=== PATIENT | male | born 1950 | race Caucasian/White ===

== ENCOUNTER → 2017-01-25 | Outpatient (CLI) | payer MEDICARE ==
[~2017-01-25] MED LIST: ALLO100T PO; AMLO10TA2 PO; ASPI-999 PO; ATOR40TA PO; CLOP75TA28 PO; CLOP75TA69 PO; FURO40TA4 PO; GLIM4TAB PO; IBUP-30 PO; LOSA25TA21 PO; MAGN400T39 PO; METF500T4 PO; METO-274 PO; METO5TAB6 PO; POTA10TA10 PO; POTA10TA36 PO; SPIR25TA PO
--- NOTE | 2017-01-25 14:40 | Diagnostic Imaging Report ---
EXAMINATION: PA and lateral views of the chest. INDICATION: Cough. Fever. FINDINGS: Extensive bilateral infiltrates are seen. Bilateral pleural effusions are noted. The heart size is slightly enlarged. No pneumothorax. IMPRESSION: There are extensive bilateral infiltrates and small effusions which could relate to pulmonary edema or pneumonia. The report was faxed to the office of Dr. Sue Fam by FRANDY at 2:45 PM. Dictated by: Dictated on workstation # [id number]
== END ==
LOC: RAD 12:38
PROVIDERS: ATTEND Internal Medicine
DX: R05 Cough (principal)
CPT/HCPCS: 71020

== ENCOUNTER → 2017-02-08 | Outpatient (CLI) | payer MEDICARE ==
[2017-02-08 08:33] LABS: MEAN PLATELET VOLUME 11.6 FL (7.4-10.4); RED BLOOD COUNT 4.84 10^6/uL (4.35-5.85); RED CELL DISTRIBUTION WIDTH 13.5 % (10.0-14.5); WHITE BLOOD COUNT 8.5 10^3/uL (4.3-11.0)
[2017-02-08 08:34] LABS: BILIRUBIN,URINE NEGATIVE (NEGATIVE); KETONES,URINE NEGATIVE (NEGATIVE); LEUKOCYTE ESTERASE ,URINE NEGATIVE (NEGATIVE); NITRITE,URINE NEGATIVE (NEGATIVE); PH,URINE 7 (5-9); PROTEIN,URINE 1+ (NEGATIVE); UROBILINOGEN,URINE NORMAL (NORMAL)
[2017-02-08 08:42] LABS: PROTHROMBIN TIME PATIENT 13.1 SEC (12.2-14.7)
[2017-02-08 08:45] LABS: HYALINE CASTS, URINE RARE /LPF; WBC,URINE 0-2 /HPF
[2017-02-08 08:54] LABS: ALBUMIN 3.8 G/DL (3.2-4.5); CALCIUM 9.7 MG/DL (8.5-10.1); CREATININE SERUM 1.91 MG/DL (0.60-1.30); MAGNESIUM 1.7 MG/DL (1.8-2.4); POTASSIUM 3.7 MMOL/L (3.6-5.0); TOTAL PROTEIN 7.2 G/DL (6.4-8.2)
== END ==
LOC: CARD 08:04
PROVIDERS: ATTEND Internal Medicine Cardiovascular Disease
DX: I13.0 Hypertensive heart and chronic kidney disease with heart failure and stage 1 through stage 4 chronic kidney disease, or unspecified chronic kidney disease (principal); I50.21 Acute systolic (congestive) heart failure; N18.9 Chronic kidney disease, unspecified; I25.10 Atherosclerotic heart disease of native coronary artery without angina pectoris
CPT/HCPCS: 36415; 80053; 80061; 81000; 83735; 85027; 85610; 85730; 93005

== ENCOUNTER 2017-02-09 07:14 | Day surgery (SDC) | payer MEDICARE ==
[~2017-02-09] VITALS: Ht 177.8 cm; Wt 83.9 kg
[2017-02-09] VITALS (7 sets, daily range): BP systolic 132–139; BP diastolic 67–101
[~2017-02-09 07:14] MED LIST changes: -CLOP75TA69 PO; -MAGN400T39 PO; -METO5TAB6 PO; -POTA10TA36 PO; -SPIR25TA PO
[2017-02-09] MEDS ORDERED: LIDOCAINE 1% INJ 20 ML (XYLOCAINE) VIAL ONE (07:17)
[2017-02-09] MEDS ORDERED: NS IV 1000 ML 1,000 ML ONE (07:17)
[2017-02-09] MEDS ORDERED: NS IV 1000 ML 1,000 ML IV SCH (07:45)
[2017-02-09] MEDS ORDERED: CLOP75TA69 PO (08:55)
[2017-02-09] MEDS ORDERED: ASPI-999 PO (08:55)
[2017-02-09] MEDS ORDERED: POTA10TA36 PO (08:55)
[2017-02-09] MEDS ORDERED: GLIM4TAB PO (08:55)
[2017-02-09] MEDS ORDERED: METO-274 PO (08:55)
[2017-02-09] MEDS ORDERED: ATOR40TA PO (08:55)
[2017-02-09] MEDS ORDERED: METO5TAB6 PO (08:55)
[2017-02-09] MEDS ORDERED: SPIR25TA PO (08:55)
[2017-02-09] MEDS ORDERED: MAGN400T39 PO (08:55)
[2017-02-09] MEDS ORDERED: LOSA25TA21 PO (08:55)
[2017-02-09] MEDS ORDERED: FURO40TA4 PO (08:55)
[2017-02-09] MEDS ORDERED: fentaNYL INJECTION 100 MCG/2 ML AMP ONE (11:03)
[2017-02-09] MEDS ORDERED: diphenhydrAMINE 50 MG/ML INJ (BENADRYL) ONE (11:03)
[2017-02-09] MEDS ORDERED: MIDAZOLAM 5 MG/5 ML (VERSED) VIAL ONE (11:03)
--- NOTE | 2017-02-09 11:16 | Cardiac Procedure Note-CS/ASA ---
Pre-Procedure Note Pre-Op Procedure Note H&P Reviewed The H&P was reviewed, patient examined and no changes noted. Date H&P Reviewed: February 09, 2017 Time H&P Reviewed: 11:15 Conscious Sedation Pre-Proced Time Reviewed: 11:15 ASA Class: 3 Airway Mallampati Classification: (cahto appropriate class) I. II. III, IV Lungs Heart ASA score ASA 1: a normal healthy patient ASA 2: a patient with a mild systemic disease (mid diabetes, controlled hypertension, obesity ASA 3: a patient with a severe systemic disease that limits activity (angina , COPD, prior Myocardial infarction) ASA 4: a patient with an incapacitating disease that is a constant threat to life (CHF, renal failure) ASA 5: a moribund patient not expected to survive 24 hrs. (ruptured aneurysm) ASA 6: a declared brain patient whose organs are being harvested. For emergent operations, add the letter E after the classification Grade 2 Sedation Plan: Analgesia, Amnesia, Plan communicated to team members, Discussed options with patient/fam, Discussed risks with patient/fam Note The patient is an appropriate candidate to undergo the planned procedure, sedation, and anesthesia. The patient immediately re-assessed prior to indication. RHYS HINKLE MD FACP FAC CCDS February 09, 2017 11:15
[2017-02-09] MEDS ORDERED: HEParin 1000 UNIT/ML (10ML VIAL) FOR BOLUS ONE (11:38)
[2017-02-09] MEDS ORDERED: EPTIFIBATIDE BOLUS 20 ML IV ONE (11:38)
[2017-02-09] MEDS ORDERED: NITROGLYCERIN DRIP 25 MG/D5W 250 ML IV ONE (11:38)
[2017-02-09] MEDS ORDERED: ASPIRIN 325 MG (5 GR) TABLET ONE (12:33)
[2017-02-09] MEDS ORDERED: CLOPIDOGREL 300 MG (PLAVIX) TABLET PO ONE (12:33)
[2017-02-09] MEDS ORDERED: ASPIRIN 81 MG CHEW (CHILDREN'S ASA) ONE (12:34)
[2017-02-09] MEDS ORDERED: FUROSEMIDE 40 MG/4 ML INJ (LASIX) IVP ONE (13:15)
[2017-02-09] MEDS ORDERED: PATIENT MAY USE OWN MEDS, ALL PO SCH (13:15)
[2017-02-09] MEDS: NS IV 1000 ML 1,000 ML IV SCH (13:28)
--- NOTE | 2017-02-09 14:30 | CARDIAC CATHETERIZATION ---
DATE OF SERVICE: 02/09/2017 CARDIAC CATHETERIZATION AND CORONARY INTERVENTION DATE OF PROCEDURE: 02/09/17 The patient is a 66-year-old gentleman with recently diagnosed acute systolic congestive heart failure due to ischemic cardiomyopathy. Cardiac catheterization was carried out today after having obtained informed consent. DESCRIPTION OF PROCEDURE: The patient was brought to the cardiac catheterization laboratory after vigorous perioperative hydration. This is because he has chronic kidney disease stage 3-4 at baseline. We carried out perioperative hydration to reduce the risk of contrast nephropathy. This risk was discussed with him in detail and he provided informed consent. The right groin was prepped and draped in the usual sterile fashion. Then 1% lidocaine for local anesthesia. Modified Seldinger technique was used to advance a 5-[place] sheath into the right femoral artery. A 5-[place] JL5 catheter for left coronary angiography. 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 We were able to engage it with a 5-[place] AL2 access catheter. We used a 5-[place] pigtail catheter for left heart catheterization. We did not perform left ventricle angiography. This was to conserve dye given his renal insufficiency. The pigtail was then pulsed back and removed. The sheath was exchanged over a wire for a 6-[place] sheath and we then proceeded with percutaneous intervention of the left anterior descending artery as described below. PERCUTANEOUS INTERVENTION TO THE LEFT ANTERIOR DESCENDING ARTERY: We used a 5-[place] Q4.5 guide catheter to engage the left coronary artery. With moderate difficulty we were able to advance a [place] floppy wire across an extremely tight lesion in the left anterior descending artery just past the 1st diagonal branchy. The tip was placed in the distal vessel. We carried out balloon angioplasty with Emerge 2.0 x 30 mm balloon. This improved antegrade flow from CRISTI-2 to CRISTI-3. There was still considerable residual stenosis (up to 80%). We removed the balloon and advanced Resolute 2.25 x 30 mm stent and this was carefully positioned to cover the lesion and the stent was deployed at 15 atmospheres which gave a final lumen size of 2.5 mm. The stent balloon was removed. There was another lesion just proximal to the proximal stent and we proceeded with stenting that with Resolute 2.5 x 14 mm stent. The distal part of the stent overlapped the proximal part of the previously placed stent. This stent was deployed at 15 atmospheres which gives a final stent lumen size of 2.75 mm. The stent balloon was then removed and we used an Emerge 2.75 x 20 mm balloon which was used to cover the entire stented area with balloon inflations of up to 12 atmospheres, achieving a final lumen size of the stented area of 2.9 mm. Subsequent angiography reveals no residual stenosis at the previous site of the 99% stenosis and flow throughout the vessel is normal. The angioplasty equipment was removed. Angiography of the right femoral artery was performed through the sheath and Mynx was used to achieve hemostasis. HEMODYNAMICS: Left ventricular end diastolic pressure was following amniography was 29 mmHg. There was no significant pressure gradient on pullback across the aortic valve. Ascending aortic pressure is 136/71 with a mean of 94 mmHg. LEFT VENTRICULAR ANGIOGRAPHY: Left ventricular angiography was not carried out to conserve contrast. CORONARY ANGIOGRAPHY: Chronic calcification is seen. Left main coronary artery does not have significant disease. Left anterior descending artery has 99% stenosis just past the 1st diagonal branch to which successful balloon angioplasty and stenting was carried out. Following deployment of 2 overlapping stents (Resolute 2.25 x 30 mm distally and Resolute 2.5 x 14 mm proximally) and subsequent balloon dilatation of the entire stented area with Emerge 2.75 x 20 mm balloon, there is no significant residual stenosis and flow throughout the vessel is normal. The left circumflex artery has mild to moderate disease. The right coronary artery is dominant and has multiple stenoses up to 40% in its mid and distal portions. CONCLUSIONS: 1. Coronary artery disease primarily consisting of near-total occlusion of the mid left anterior descending artery past the 1st diagonal branch to which successful intervention was carried out. Following deployment of overlapping stents (Resolute 2.25 x 30 mm distally and Resolute 2.5 x 14 mm proximally) and subsequent balloon dilatation of the entire stented area with a 2.75 mm balloon (which took the lumen diameter to 2.9 mm), there is no significant residual stenosis. The left circumflex is nondominant. The right coronary artery is dominant. The left circumflex and right coronary arteries have relatively moderate disease. 2. Elevated left ventricular-end diastolic pressure. DISCUSSION AND RECOMMENDATIONS: He is being hospitalized after this intervention. Perioperative hydration is being continued to reduce risk of contrast nephropathy. Further decisions will be made during his hospital course. Job ID: [id number] DocumentID: [id number] Dictated Date: 02/09/2017 12:55:02 Extruder Operator Multiple Date: 02/09/2017 14:00:53 Dictated By: RHYS HINKLE MD, MA, FACP, FACC, MTDD
[2017-02-09] MEDS ORDERED: FUROSEMIDE 40 MG/4 ML INJ (LASIX) ONE (16:00)
[2017-02-09] MEDS: inSUlin (REGULAR) HUMAN 1 UNIT/0.01 ML (CHARGE PER UNIT) SC SCH ×2 (17:12→20:18)
[2017-02-09] MEDS: MAGNESIUM OXIDE (MAG-OX)400 MG TAB PO SCH (20:19)
[2017-02-09] MEDS: GLIMEPIRIDE 4 MG (AMARYL) TAB PO SCH (20:19)
[2017-02-09] MEDS ORDERED: ATORVASTATIN 40 MG (LIPITOR) TABLET PO SCH (21:00)
[2017-02-10] VITALS: BP 143/78
[2017-02-10] MEDS: NS IV 1000 ML 1,000 ML IV SCH (02:19)
[2017-02-10 03:56] LABS: MEAN PLATELET VOLUME 11.4 FL (7.4-10.4); RED BLOOD COUNT 4.68 10^6/uL (4.35-5.85); RED CELL DISTRIBUTION WIDTH 13.6 % (10.0-14.5); WHITE BLOOD COUNT 11.4 10^3/uL (4.3-11.0)
[2017-02-10 04:00] VITALS: BP 133/76
[2017-02-10 04:15] LABS: CALCIUM 9.2 MG/DL (8.5-10.1); CREATININE SERUM 1.94 MG/DL (0.60-1.30); POTASSIUM 3.6 MMOL/L (3.6-5.0)
[2017-02-10] MEDS: inSUlin (REGULAR) HUMAN 1 UNIT/0.01 ML (CHARGE PER UNIT) SC SCH ×2 (05:57→11:00)
[2017-02-10 08:00] VITALS: BP 134/79
[2017-02-10] MEDS ORDERED: FUROSEMIDE 40 MG (LASIX) TAB PO SCH (09:00)
[2017-02-10] MEDS ORDERED: ASPIRIN 81 MG CHEW (CHILDREN'S ASA) PO SCH (09:00)
[2017-02-10] MEDS ORDERED: KCL 10 MEQ TAB (MICRO K) PO SCH (09:00)
[2017-02-10] MEDS ORDERED: meTOprolol SUCCINATE 100 MG (TOPROL XL) TAB PO SCH (09:00)
[2017-02-10] MEDS ORDERED: CLOPIDOGREL 75 MG (PLAVIX) TABLET PO SCH (09:00)
[2017-02-10] MEDS: GLIMEPIRIDE 4 MG (AMARYL) TAB PO SCH (09:19)
[2017-02-10] MEDS: MAGNESIUM OXIDE (MAG-OX)400 MG TAB PO SCH (09:21)
--- NOTE | 2017-02-10 10:55 | Progress Note-Cardiology ---
Cardiology SOAP Progress Note Subjective: No cp or palp or syncope Exertional shortness of breath is better Was able to lie flat last night and was able to rest better than has been at home No leg swelling or groin discomfort. Wishes to go home Objective: I&O/Vital Signs Vital Sign - Last 12Hours 02/10/17 02/10/17 02/10/17 02/10/17 00:00 01:00 04:00 07:00 Temp 97.9 98.7 Pulse 78 97 75 90 Resp 20 16 B/P (MAP) 143/78 133/76 Pulse Ox 96 96 O2 Delivery Room Air Room Air Weight (Pounds): 185 Weight (Ounces): 0.0 Weight (Calculated Kilograms): 83.244516 Groin site without hematoma: Yes Bruising: mild bruising Constitutional: AAO x 3, well-developed, well-nourished Respiratory: No accessory muscle use, lungs clear to percussion, lungs clear to auscultation Cardiovascular: regular rate-rhythm, S1 and S2, systolic murmur (faint AMAURI at cardiac base) Gastrointestional: No tender, No guarding, No rebound, audible bowel sounds Extremities: No clubbing, No cyanosis, No significant edema Neurologic/Psychiatric: oriented x 3, grossly intact, power is 5/5 both on sides Skin: No rash on exposed areas, No ulcerations on exposed areas Results/Procedures: Labs Laboratory Tests 02/09/17 16:24: Glucometer 214H 02/09/17 20:10: Glucometer 267H 02/10/17 03:47: White Blood Count 11.4H, Red Blood Count 4.68, Hemoglobin 13.5, Hematocrit 40, Mean Corpuscular Volume 86, Mean Corpuscular Hemoglobin 29, Mean Corpuscular Hemoglobin Concent 34, Red Cell Distribution Width 13.6, Platelet Count 260, Mean Platelet Volume 11.4H, Sodium Level 144, Potassium Level 3.6, Chloride Level 102, Carbon Dioxide Level 27, Anion Gap 15H, Blood Urea Nitrogen 31H, Creatinine 1.94H, Estimat Glomerular Filtration Rate 35, BUN/Creatinine Ratio 16 , Glucose Level 101, Calcium Level 9.2 Laboratory Tests 02/10/17 03:47 A/P: Assessment: CAD. Card cath and PCI on 5/9/17: Coronary artery disease primarily consisting of near-total occlusion of the mid left anterior descending artery past the 1st diagonal branch to which successful intervention was carried out. Following deployment of overlapping stents (Resolute 2.25 x 30 mm distally and Resolute 2.5 x 14 mm proximally) and subsequent balloon dilatation of the entire stented area with a 2.75 mm balloon (which took the lumen diameter to 2.9 mm), there is no significant residual stenosis. The left circumflex is nondominant. The right coronary artery is dominant. The left circumflex and right coronary arteries have relatively moderate disease. Elevated left ventricular-end diastolic pressure Chronic systolic CHF Echo of 01/26/17: LVEF 40%, triv to mild MR and TR, PASP 40 mmHG, mod conc LVH DM II Hypertension, by history Quit tobacco use in or around 1999 CKD III; likely in some part d/t diabetic nephropathy Plan: * Wishes to go home * I discussed with him in detail the findings of cath and interventions undertaken * I answered his questions in detail * Have advised close outpatient f/u for now * Have advised repeat lab work in 4-5 days to eval for contrast nephropathy (no evidence of that so far) * Given recent worsening of renal function and use of contrast yesterday, we are holding off on ARB for now. Will restart if labs stable next week RHYS HINKLE MD FACP FAC CCDS February 10, 2017 10:55
--- NOTE | 2017-02-10 10:59 | Discharge Inst-Post CATH ---
Discharge Inst-CATH Post Cardiac Cath D/C Inst Follow Up/Plan F/u with Dr Vela on 02/15 or 02/16/17 CARDIAC CATH DISCHARGE INSTRUCTIONS *Hold Metformin for 48 hours post heart cath. ACTIVITY * Go Home directly and rest. * Limit activity of the leg (or wrist if it was used) for 7 days including aerobics, swimming, jogging, bicycling, etc. * Restrict stair-climbing for 7 days if possible, if not, climb up with your non -cath leg, then bring together on the same step. * Avoid lifting, pushing, pulling or excessive movement of the affected extremity for 7 days. * Customary sexual activity may be resumed after 2 days-use caution not to use a position that strains or causes pain to the affected extremity. * No driving for 24 hours. * NO SMOKING. * Avoid straining for bowel movements for 7 days. * Gentle walking on level ground is allowed. * Returning to work will depend on the type of procedure and the results. Your doctor will discuss this with you. CALL YOUR DOCTOR FOR ANY OF THE FOLLOWING: *If bleeding from the puncture site occurs- Apply gentle pressure to site with clean cloth and call your doctor or EMS. * If a knot or lump forms under the skin, increases in size, or causes pain. * If bruising appears to be worsening or moving further down your leg instead of disappearing. * Temperature above 101 F. CARE OF YOUR GROIN INCISION; * Bruising or purple discoloration of the skin near the puncture site is common. * You may shower only, no bathtub bathing for 5 days. Be careful to avoid slipping as your leg may feel stiff. * If a closure device was used on your femoral artery, please see the attached guide regarding care of the device and your leg. * REMOVE the dressing from your groin the next day after your procedure in the shower. CARE OF YOUR WRIST INCISION; * Bruising or purple discoloration of the skin near the puncture site is common. * You may shower. * DO NOT submerge wrist. * Remove dressing in [address]. [facility] VELA [facility] CCDS February 10, 2017 10:59
--- NOTE | 2017-02-10 10:59 | Discharge Inst-Cardiology ---
Discharge Inst-Cardiac Discharge Medications Continued Medications: Aspirin (Aspirin) 81 Mg Tab.chew 81 MG PO DAILY, TAB Atorvastatin Calcium (Lipitor) 40 Mg Tablet 40 MG PO DAILY, TAB Clopidogrel Bisulfate (Plavix) 75 Mg Tablet 75 MG PO DAILY, TAB Furosemide (Furosemide) 40 Mg Tablet 40 MG PO DAILY, TAB Glimepiride (Glimepiride) 4 Mg Tablet 4 MG PO BID, TAB Magnesium Oxide (Magnesium) 400 Mg Tablet 400 MG PO BID, TAB Metoprolol Succinate (Metoprolol Succinate) 100 Mg Tab.er.24h 100 MG PO DAILY, TAB Potassium Chloride (Potassium Chloride) 10 Meq Tab.er.prt 10 MEQ PO DAILY Discontinued Medications: Losartan Potassium (Losartan Potassium) 25 Mg Tablet 25 MG PO DAILY, TAB Metolazone (Metolazone) 5 Mg Tablet 2.5 MG PO DAILY, TAB TAKES 1/2 (5MG) TABLET Spironolactone (Aldactone) 25 Mg Tablet 25 MG PO DAILY, TAB Activity & Diet Discharge Diet: ADA Diet (1600 kCal ADA) Orders-Post D/C & Referrals Pneu Vac Indicated: Yes RHYS HINKLE MD FACP FACC CCDS February 10, 2017 10:59
--- NOTE | 2017-02-10 11:09 | Cardiology Discharge Summary ---
Diagnosis/Chief Complaint Date of Admission 02/09/17 Date of Discharge 02/10/17 Final/Discharge Diagnosis CAD. Card cath and PCI on 02/09/17: Coronary artery disease primarily consisting of near-total occlusion of the mid left anterior descending artery past the 1st diagonal branch to which successful intervention was carried out. Following deployment of overlapping stents (Resolute 2.25 x 30 mm distally and Resolute 2.5 x 14 mm proximally) and subsequent balloon dilatation of the entire stented area with a 2.75 mm balloon (which took the lumen diameter to 2.9 mm), there is no significant residual stenosis. The left circumflex is nondominant. The right coronary artery is dominant. The left circumflex and right coronary arteries have relatively moderate disease. Elevated left ventricular-end diastolic pressure Chronic systolic CHF Echo of 01/26/17: LVEF 40%, triv to mild MR and TR, PASP 40 mmHG, mod conc LVH DM II Hypertension, by history Quit tobacco use in or around 1999 CKD III; likely in some part d/t diabetic nephropathy Chief Complaint/HPI Chief Complaint/HPI Please see H&P and cath report for details of admission Please refer to today's progress note for condition at discharge and hosp course Time spent in pt exam, interview, answering questions, preparing discharge, writing meds and notes: 10:40 am to 11:10 am Discharge Summary Procedures Card cath and cor intervention on 02/09/17 (see report) Hospital Course Pending Labs Laboratory Tests 02/10/17 03:47: White Blood Count 11.4, Red Blood Count 4.68, Hemoglobin 13.5, Hematocrit 40, Mean Corpuscular Volume 86, Mean Corpuscular Hemoglobin 29, Mean Corpuscular Hemoglobin Concent 34, Red Cell Distribution Width 13.6, Platelet Count 260, Mean Platelet Volume 11.4, Sodium Level 144, Potassium Level 3.6, Chloride Level 102, Carbon Dioxide Level 27, Anion Gap 15, Blood Urea Nitrogen 31, Creatinine 1.94, Estimat Glomerular Filtration Rate 35, BUN/Creatinine Ratio 16 , Glucose Level 101, Calcium Level 9.2 Discussion & Recommendations Home Medications Reviewed patient Home Medication Reconciliation Form Discharge Home Medications: Reviewed and agree with Discharge Medication list on patient's Discharge Instruction sheet Instructions to patient/family F/u with Dr Vela on 02/15 or 02/16/17 RHYS VELA MD FACP FAC CCDS February 10, 2017 11:09
[2017-02-10 12:00] VITALS: BP 140/75
== END 2017-02-10 13:05 | disposition home or self-care (01) ==
LOC: CATH 07:14 → ICU 13:00 → CATH 02-10 13:05
PROVIDERS: ATTEND Internal Medicine Cardiovascular Disease
DX: I50.21 Acute systolic (congestive) heart failure (principal); I25.5 Ischemic cardiomyopathy; I25.10 Atherosclerotic heart disease of native coronary artery without angina pectoris; N18.4 Chronic kidney disease, stage 4 (severe); I25.84 Coronary atherosclerosis due to calcified coronary lesion; E11.22 Type 2 diabetes mellitus with diabetic chronic kidney disease; I12.9 Hypertensive chronic kidney disease with stage 1 through stage 4 chronic kidney disease, or unspecified chronic kidney disease; Z87.891 Personal history of nicotine dependence; Z79.899 Other long term (current) drug therapy
CPT/HCPCS: 36415; 80048; 82962; 85027; 87081; 93005; 93458

== ENCOUNTER 2017-03-03 12:26 | Inpatient (IN) | payer MEDICARE ==
[~2017-03-03] VITALS: Ht 179.1 cm; Wt 84.4 kg
[~2017-03-03 12:26] MED LIST changes: +CLOP75TA69 PO; +MAGN400T39 PO; +METO5TAB6 PO; +POTA10TA36 PO; +SPIR25TA PO
[2017-03-03 12:58] LABS: BASOPHILS # (AUTO) 0.1 10^3/uL (0.0-0.1); BASOPHILS % (AUTO) 1 % (0-10); EOSINOPHILS # (AUTO) 0.1 10^3/uL (0.0-0.3); EOSINOPHILS % (AUTO) 1 % (0-10); LYMPHOCYTES # (AUTO) 1.5 X 10^3 (1.0-4.0); LYMPHOCYTES % (AUTO) 20 % (12-44); MEAN CORPUSCULAR HEMOGLOBIN 29 PG (25-34); MEAN CORPUSCULAR HGB CONC 34 G/DL (32-36); MEAN CORPUSCULAR VOLUME 86 FL (80-99); MEAN PLATELET VOLUME 11.3 FL (7.4-10.4); MONOCYTES % (AUTO) 13 % (0-12); NEUTROPHILS % (AUTO) 65 % (42-75); PLATELET COUNT 256 10^3/uL (130-400); RED BLOOD COUNT 4.64 10^6/uL (4.35-5.85); RED CELL DISTRIBUTION WIDTH 14.9 % (10.0-14.5); WHITE BLOOD COUNT 7.7 10^3/uL (4.3-11.0)
[2017-03-03] MEDS ORDERED: RT-ALBUTEROL/IPRATROPIUM 3 ML (DUONEB) VIAL INH ONE (13:00)
[2017-03-03 13:08] LABS: PROTHROMBIN TIME PATIENT 13.3 SEC (12.2-14.7)
[2017-03-03 13:13] LABS: ABG BASE EXCESS -0.9 MMOL/L (-2.5-2.5); ABG HCO3 22 MMOL/L (23-27); ABG OXYGEN SATURATION 95 % (94-100); ABG PCO2 30 MMHG (35-45); ABG PH 7.48 (7.37-7.43); ABG PO2 66 MMHG (79-93); ABG TCO2 23.4 MMOL/L (21.0-31.0)
[2017-03-03 13:16] LABS: ALANINE AMINOTRANSFERASE 38 U/L (0-55); ANION GAP 14 MMOL/L (5-14); ASPARTATE AMINO TRANSFERASE 22 U/L (5-34); BILIRUBIN,TOTAL 0.9 MG/DL (0.1-1.0); BLOOD UREA NITROGEN 23 MG/DL (7-18); BUN/CREATININE RATIO 13; CALCIUM 9.3 MG/DL (8.5-10.1); CARBON DIOXIDE 24 MMOL/L (21-32); CHLORIDE 106 MMOL/L (98-107); CREATINE KINASE 112 U/L (30-200); CREATININE SERUM 1.72 MG/DL (0.60-1.30); GFR ESTIMATED 40; GLUCOSE 149 MG/DL (70-105); MAGNESIUM 1.8 MG/DL (1.8-2.4); POTASSIUM 3.9 MMOL/L (3.6-5.0); SODIUM 144 MMOL/L (135-145)
[2017-03-03 13:19] LABS: ALLENS TEST YES-POS; PATIENT TEMP 96.1
--- NOTE | 2017-03-03 13:29 | Diagnostic Imaging Report ---
INDICATION: Difficult breathing. Portable chest 1:16 PM. There is some infiltrate present at the right lung base with a small effusion. There is some left basilar atelectasis. The upper lungs are clear. IMPRESSION: Left basilar atelectasis. Right basilar infiltrate and/or atelectasis with small associated right-sided pleural effusion. Dictated by: Dictated on workstation # [id number]
[2017-03-03 13:36] LABS: TROPONIN I < 0.30 NG/ML (<0.30)
[2017-03-03] MEDS ORDERED: LEVOFLOXACIN 750 MG/150 ML IV 150 ML IV STA (13:38)
[2017-03-03] MEDS ORDERED: FUROSEMIDE 40 MG/4 ML INJ (LASIX) IV STA (13:38)
--- NOTE | 2017-03-03 14:06 | ED Respiratory ---
General Chief Complaint: Respiratory Problems Stated Complaint: SOB Nursing Triage Note: pt was sent to the ed from [facility] [place] urgent care. pt states he had stents placed approx. 2 weeks ago and has been feeling sob before and since stents were placed. Source: patient, spouse Exam Limitations: no limitations History of Present Illness Time seen by provider: 12:30 Initial Comments 66-year-old male patient [place] to the emergency department [place] [facility] [place] with complaints of shortness of breath. States he had cardiac stents placed [address] Vela. States he was short of breath prior to the stent placement as well as after. Denies it being worse today, but states he does feel more fatigued. Was diagnosed with pneumonia at the end of January. Timing/Duration: other (proximally 2 months onset) Prior Episodes/Possible Cause: chronic episodes Modifying Factors: Worse With Activity Allergies and Home Medications Allergies Coded Allergies: No Known Drug Allergies (Unverified , 01/25/17) Home Medications Aspirin 81 Mg Tab.chew, 81 MG PO DAILY, (Reported) Atorvastatin Calcium 40 Mg Tablet, 40 MG PO HS, (Reported) Clopidogrel Bisulfate 75 Mg Tablet, 75 MG PO DAILY, (Reported) Furosemide 40 Mg Tablet, 40 MG PO DAILY, (Reported) Glimepiride 4 Mg Tablet, 4 MG PO BID, (Reported) Ibuprofen 200 Mg Tablet, 800 MG PO DAILY PRN for PAIN-MILD, (Reported) TAKES 4 (200 MG) TABLETS Magnesium Oxide 400 Mg Tablet, 400 MG PO BID, (Reported) Metoprolol Succinate 100 Mg Tab.er.24h, 100 MG PO DAILY, (Reported) Multivit-Min/FA/Lycopene/Lut 1 Each Tablet, 1 TAB PO DAILY, (Reported) Potassium Chloride 10 Meq Tab.er.prt, 10 MEQ PO DAILY, (Reported) Zolpidem Tartrate 10 Mg Tablet, 10 MG PO HS PRN for INSOMNIA, (Reported) Constitutional: No chills, No diaphoresis, No dizziness, No fever, malaise, weakness (generalized weakness and fatigue) EENTM: no symptoms reported Respiratory: No cough, dyspnea on exertion, No hemoptysis, orthopnea, phlegm, short of breath Cardiovascular: No chest pain, No edema, No palpitations, No syncope Gastrointestinal: No abdominal pain, No constipation, No diarrhea, No nausea, No vomiting Genitourinary: no symptoms reported Musculoskeletal: no symptoms reported Skin: no symptoms reported Psychiatric/Neurological: No Symptoms Reported All Other Systems Reviewed Negative Unless Noted: Yes (Negative excepted noted.) Past Tngigex-Gpbzhm-Bgmurw Hx Patient Social History Alcohol Use: Rarely Uses Recreational Drug Use: No Smoking Status: Former Smoker Type Used: Cigarettes 2nd Hand Smoke Exposure: No Recent Foreign Travel: No Contact w/Someone Who Travel: No Recent Infectious Disease Expo: No Recent Hopitalizations: Yes (stents placed 2 weeks ago) Immunizations Up To Date PED Vaccines UTD: No Seasonal Allergies Seasonal Allergies: No Surgeries HX Surgeries: Yes Respiratory Hx Respiratory Disorders: No Respiratory Disorders: Pneumonia Cardiovascular Hx Cardiac Disorders: Yes Cardiac Disorders: High Cholesterol, Hypertension Neurological Hx Neurological Disorders: Yes Neurological Disorders: Neuropathy Genitourinary Hx Genitourinary Disorders: Yes (elevated creatinine) Genitourinary Disorders: Renal Failure Gastrointestinal Hx Gastrointestinal Disorders: No Musculoskeletal Hx Musculoskeletal Disorders: Yes Musculoskeletal Disorders: Chronic Back Pain Endocrine Hx Endocrine Disorders: Yes Endocrine Disorders: Diabetes, Non-Insulin dep HEENT HEENT Disorders: Cataract Loss of Vision: Denies Hearing Impairment: Denies Cancer Hx Cancer: No Psychosocial Hx Psychiatric Problems: No Reviewed Nursing Assessment Reviewed/Agree w Nursing PMH: Yes Family Medical History Significant Family History: No Pertinent Family Hx Physical Exam Vital Signs Vital Sign - Last 12Hours 03/03/17 03/03/17 12:30 12:46 Temp 98.2 Pulse 89 Resp 22 B/P (MAP) 137/93 Pulse Ox 98 O2 Delivery Nasal Cannula O2 Flow Rate 2.00 FiO2 91 Capillary Refill : Less Than 3 Seconds General Appearance: WD/WN, no apparent distress Eyes: Bilateral Eye EOMI, Bilateral Eye Normal Inspection, Bilateral Eye PERRL HEENT: PERRL/EOMI, pharynx normal Neck: supple, normal inspection Respiratory: lungs clear, no respiratory distress, decreased breath sounds ( bilateral bases) Cardiovascular: normal peripheral pulses, regular rate, rhythm, no edema, no murmur Gastrointestinal: normal bowel sounds, non tender, soft Neurologic/Psychiatric: alert, normal mood/affect, oriented x 3 Skin: normal color, warm/dry Progress/Results/Core Measures Results/Orders Lab Results Laboratory Tests Test 03/03/17 12:30 03/03/17 13:07 Range/Units White Blood Count 7.7 4.3-11.0 10^3/uL Red Blood Count 4.64 4.35-5.85 10^6/uL Hemoglobin 13.3 13.3-17.7 G/DL Hematocrit 40 40-54 % Mean Corpuscular Volume 86 80-99 FL Mean Corpuscular Hemoglobin 29 25-34 PG Mean Corpuscular Hemoglobin Concent 34 32-36 G/DL Red Cell Distribution Width 14.9 H 10.0-14.5 % Platelet Count 256 130-400 10^3/uL Mean Platelet Volume 11.3 H 7.4-10.4 FL Neutrophils (%) (Auto) 65 42-75 % Lymphocytes (%) (Auto) 20 12-44 % Monocytes (%) (Auto) 13 H 0-12 % Eosinophils (%) (Auto) 1 0-10 % Basophils (%) (Auto) 1 0-10 % Neutrophils # (Auto) 5.0 1.8-7.8 X 10^3 Lymphocytes # (Auto) 1.5 1.0-4.0 X 10^3 Monocytes # (Auto) 1.0 0.0-1.0 X 10^3 Eosinophils # (Auto) 0.1 0.0-0.3 10^3/uL Basophils # (Auto) 0.1 0.0-0.1 10^3/uL Prothrombin Time 13.3 12.2-14.7 SEC INR Comment 1.0 0.8-1.4 Activated Partial Thromboplast Time 34 24-35 SEC D-Dimer 0.53 H 0.00-0.49 UG/ML Sodium Level 144 135-145 MMOL/L Potassium Level 3.9 3.6-5.0 MMOL/L Chloride Level 106 98-107 MMOL/L Carbon Dioxide Level 24 21-32 MMOL/L Anion Gap 14 5-14 MMOL/L Blood Urea Nitrogen 23 H 7-18 MG/DL Creatinine 1.72 H 0.60-1.30 MG/DL Estimat Glomerular Filtration Rate 40 BUN/Creatinine Ratio 13 Glucose Level 149 H 70-105 MG/DL Calcium Level 9.3 8.5-10.1 MG/DL Magnesium Level 1.8 1.8-2.4 MG/DL Total Bilirubin 0.9 0.1-1.0 MG/DL Aspartate Amino Transf (AST/SGOT) 22 5-34 U/L Alanine Aminotransferase (ALT/SGPT) 38 0-55 U/L Alkaline Phosphatase 100 40-136 U/L Total Creatine Kinase 112 30-200 U/L Creatine Kinase MB 6.7 *H <6.6 NG/ML Troponin I < 0.30 <0.30 NG/ML B-Type Natriuretic Peptide 3117.1 H <100.0 PG/ML Total Protein 7.0 6.4-8.2 G/DL Albumin 4.0 3.2-4.5 G/DL TSH [place] Testing 1.93 0.35-4.94 UIU/ML Blood Gas Puncture Site RBRACH Blood Gas Patient Temperature 96.1 Arterial Blood pH 7.48 H 7.37-7.43 Arterial Blood Partial Pressure CO2 30 L 35-45 MMHG Arterial Blood Partial Pressure O2 66 L 79-93 MMHG Arterial Blood HCO3 22 L 23-27 MMOL/L Arterial Blood Total CO2 23.4 21.0-31.0 MMOL/L Arterial Blood Oxygen Saturation 95 94-100 % Arterial Blood Base Excess -0.9 -2.5-2.5 MMOL/L Oscar Test YES-POS Blood Gas Ventilator Setting NO Blood Gas Inspired Oxygen 2L My Orders Orders - GILLIAN GORDON Cbc With Automated Diff (03/03/17 12:49) Comprehensive Metabolic Panel (03/03/17 12:49) Creatine Kinase (03/03/17 12:49) Creatine Kinase Mb (03/03/17 12:49) Fibrin Degradation Products (03/03/17 12:49) Magnesium (03/03/17 12:49) Protime With Inr (03/03/17 12:49) Partial Thromboplastin Time (03/03/17 12:49) Thyroid Analyzer (03/03/17 12:49) Troponin I (03/03/17 12:49) Saline Lock/Iv-Start (03/03/17 12:49) Ekg Tracing (03/03/17 12:49) Monitor-Rhythm Ecg Trace Only (03/03/17 12:49) Chest 1 View, Ap/Pa Only (03/03/17 12:49) Albuterol/Ipra Inhalation Soln (Duoneb I (03/03/17 13:00) Svn Sm Volume Nebulizer Rt-Rfs (03/03/17 12:49) O2 (03/03/17 12:49) BNP (03/03/17 12:54) Arterial Blood Gas (03/03/17 13:05) Rt Request For Service (03/03/17 13:14) Furosemide Injection (Lasix Injection) (03/03/17 13:38) Blood Culture (03/03/17 13:38) Levofloxacin 750 Mg/150 Ml Iv (Levaquin (03/03/17 13:38) Medications Given in ED Current Medications Medications Dose Ordered Sig/Roman Route Start Time Stop Time Status Last Admin Dose Admin Albuterol/ Ipratropium 3 ml ONCE ONCE INH 03/03/17 13:00 03/03/17 13:01 DC 03/03/17 13:09 3 ML Vital Signs/I&O Vital Sign - Last 12Hours 03/03/17 03/03/17 03/03/17 12:30 12:46 13:09 Temp 98.2 Pulse 89 Resp 22 B/P (MAP) 137/93 Pulse Ox 98 97 96 O2 Delivery Nasal Cannula Nasal Cannula O2 Flow Rate 2.00 2.00 2.00 FiO2 91 Blood Pressure Mean: 108 ECG Initial ECG Impression Date: March 03, 2017 Initial ECG Impression Time: 12:44 Initial ECG Rate: 82 Initial ECG Comparisson: Unchanged Comment Sinus rhythm. No STEMI or arrhythmia noted . Similar to ECG from 02/10/17. ECG reviewed with Dr. Sherman. Diagnostic Imaging Diagonstic Imaging: Xray Plain Films/CT/US/NM/MRI: chest Comments There is some infiltrate present at the right lung base with a small effusion. There is some left basilar atelectasis. The upper lungs are clear. IMPRESSION: Left basilar atelectasis. Right basilar infiltrate and/or atelectasis with small associated right-sided pleural effusion. Dictated by: Dictated on workstation # [id number] Reviewed: Reviewed by Me (radiology report reviewed by me.) Departure Communication Time/Spoke to Admitting Phy: 13:[address] Vaca accepts patient to his internal medicine service for IV Antibiotics, lasix, and cardiology consult. Progress Notes All laboratory findings, diagnostic study findings, and plan for admission discussed with the patient. Patient voices understanding and agrees with the treatment plan. Patient case discussed with Dr. Sherman, he agrees with the plan of care. Impression Impression: Primary Impression: Pneumonia Qualified Codes: J18.1 - Lobar pneumonia, unspecified organism Additional Impression: CHF exacerbation Qualified Codes: I50.9 - Heart failure, unspecified Disposition: 09 ADMITTED INPATIENT Condition: Stable Decision to Admit Reason: Admit from ER (General) Decision to Admit/Date: March 03, 2017 Time/Decision to Admit Time: 13:50 Departure-Patient Inst. Referrals: NICHOLAS GLOVER DO (PCP/Family) Primary Care Physician GILLIAN GORDON March 03, 2017 14:06
[2017-03-03 15:00] VITALS: BP 140/89
[2017-03-03] MEDS ORDERED: PIPERACILLIN/TAZOBACTAM 4.5 GM/NS 100 ML IV NR ×2 (15:52)
[2017-03-03] MEDS ORDERED: VANCOMYCIN 2000 MG/NS 500 ML IVPB IV NR ×2 (16:00)
[2017-03-03] MEDS ORDERED: CATHETER FLUSH 10 ML SYR IV PRN (16:00)
[2017-03-03] MEDS ORDERED: ONDANSETRON 4 MG/2 ML (SDV) Z0FRAN IV PRN (16:00)
--- NOTE | 2017-03-03 16:16 | Consultation-Cardiology ---
HPI-Cardiology Cardiology Consultation: Date of Consultation 03/03/17 Date of Admission 03-03-17 Attending Physician Zeke Vaca MD Admitting Physician Sue Fam DO Consulting Physician Bebe Vela MD HPI: Chief Complaint: Dyspnea Mr. Edge is a 66 year old male admitted to ICU 4 with pneumonia. He states he has had SOB for several weeks which has progressively gotten worse over the last few days with associated generalized weakness and malaise. He does not report any fever, chills, or diaphoresis. He does report orthopnea and states he is only able to lie flat for approx 5 minutes before he feels short of breath and begins to cough. He does not report any LE edema. He does not report any CP, palpitations, syncope or near syncope. Review of Systems-Cardiology Review of Systems Constitutional: As described under HPI Eyes: No blurred vision, No drainage, No pain, No vision change Ears/Nose/Throat: No ear discharge, No ear pain, No nasal drainage, No ulcerations Respiratory: As described under HPI Cardiovascular: As described under HPI Gastrointestinal: No constipation, No diarrhea, No nausea, No vomiting, No stool coloration changes Genitourinary: No dysuria, No discharge, No frequency, No hematuria, No urgency Skin: No rash, No skin related problems, No ulcerations Psychiatric/Neurological: No anxiety, No depression, No focal weakness, No seizure, No syncope Hematologic: No bleeding abnormalities MCY-Hfbqey-Icnziz Hx Patient Social History Alcohol Use: Rarely Uses Recreational Drug Use: No Smoking Status: Former Smoker Type Used: Cigarettes 2nd Hand Smoke Exposure: No Recent Foreign Travel: No Recent Infectious Disease Expo: No Hospitalization with Isolation: Denies Physical Abuse Screen: No Sexual Abuse: No Past Medical History PMH As described under Assessment. Family Medical History Family Medical History: No fam history of early CAD or SCD Allergies and Home Medications Allergies Coded Allergies: No Known Drug Allergies (Unverified , 01/25/17) Home Medications Aspirin 81 Mg Tab.chew, 81 MG PO DAILY, (Reported) Atorvastatin Calcium 40 Mg Tablet, 40 MG PO HS, (Reported) Clopidogrel Bisulfate 75 Mg Tablet, 75 MG PO DAILY, (Reported) Furosemide 40 Mg Tablet, 40 MG PO DAILY, (Reported) Glimepiride 4 Mg Tablet, 4 MG PO BID, (Reported) Ibuprofen 200 Mg Tablet, 800 MG PO DAILY PRN for PAIN-MILD, (Reported) TAKES 4 (200 MG) TABLETS Magnesium Oxide 400 Mg Tablet, 400 MG PO BID, (Reported) Metoprolol Succinate 100 Mg Tab.er.24h, 100 MG PO DAILY, (Reported) Multivit-Min/FA/Lycopene/Lut 1 Each Tablet, 1 TAB PO DAILY, (Reported) Potassium Chloride 10 Meq Tab.er.prt, 10 MEQ PO DAILY, (Reported) Zolpidem Tartrate 10 Mg Tablet, 10 MG PO HS PRN for INSOMNIA, (Reported) Physical Exam-Cardiology Physical Exam Vital Signs/I&O Vital Sign - Last 12Hours 03/03/17 03/03/17 03/03/17 03/03/17 12:30 12:46 13:09 14:47 Temp 98.2 98.0 Pulse 89 85 Resp 22 27 B/P (MAP) 137/93 Pulse Ox 98 97 96 97 O2 Delivery Nasal Cannula Nasal Cannula O2 Flow Rate 2.00 2.00 2.00 2.00 FiO2 91 03/03/17 03/03/17 15:00 16:00 Temp 96.4 Pulse 85 Resp 20 B/P (MAP) 140/89 Pulse Ox 98 2 O2 Flow Rate 2.00 Capillary Refill : Less Than 3 Seconds Constitutional: appears stated age, No apparent distress, well-developed, well- nourished HEENT: PERRL, No discharge, hearing is well preserved, oral hygience is good, No ulceration, No xanthelasmas are seen Neck: No carotid bruit, carotid pulses are 2 + bilaterally Respiratory: No accessory muscle use, No respiratory distress, chest expansion is symmetric, chest is bilaterally symmetric, other (diminished bases bilat) Cardiovascular: regular rate-rhythm, No JVD, S1 and S2 Gastrointestinal: No tender, soft, audible bowel sounds, No spleenomegaly Rectal: deferred Extremities: No clubbing, No cyanosis, No significant edema Neurologic/Psychiatric: alert, oriented x 3, power is 5/5 both on sides Skin: No rash, No ulcerations Data Review Labs Laboratory Tests 03/03/17 12:30: White Blood Count 7.7, Red Blood Count 4.64, Hemoglobin 13.3, Hematocrit 40, Mean Corpuscular Volume 86, Mean Corpuscular Hemoglobin 29, Mean Corpuscular Hemoglobin Concent 34, Red Cell Distribution Width 14.9H, Platelet Count 256, Mean Platelet Volume 11.3H, Neutrophils (%) (Auto) 65, Lymphocytes (%) (Auto) 20 , Monocytes (%) (Auto) 13H, Eosinophils (%) (Auto) 1, Basophils (%) (Auto) 1, Neutrophils # (Auto) 5.0, Lymphocytes # (Auto) 1.5, Monocytes # (Auto) 1.0, Eosinophils # (Auto) 0.1, Basophils # (Auto) 0.1, Prothrombin Time 13.3, INR Comment 1.0, Activated Partial Thromboplast Time 34, D-Dimer 0.53H, Sodium Level 144, Potassium Level 3.9, Chloride Level 106, Carbon Dioxide Level 24, Anion Gap 14, Blood Urea Nitrogen 23H, Creatinine 1.72H, Estimat Glomerular Filtration Rate 40, BUN/Creatinine Ratio 13, Glucose Level 149H, Calcium Level 9.3, Magnesium Level 1.8, Total Bilirubin 0.9, Aspartate Amino Transf (AST/SGOT ) 22, Alanine Aminotransferase (ALT/SGPT) 38, Alkaline Phosphatase 100, Total Creatine Kinase 112, Creatine Kinase MB 6.7*H, Troponin I < 0.30, B-Type Natriuretic Peptide 3117.1H, Total Protein 7.0, Albumin 4.0, TSH [place] Testing 1.93 03/03/17 13:07: Blood Gas Puncture Site [facility], Blood Gas Patient Temperature 96.1, Arterial Blood pH 7.48H, Arterial Blood Partial Pressure CO2 30L, Arterial Blood Partial Pressure O2 66L, Arterial Blood HCO3 22L, Arterial Blood Total CO2 23.4, Arterial Blood Oxygen Saturation 95, Arterial Blood Base Excess -0.9, Oscar Test YES-POS, Blood Gas Ventilator Setting NO, Blood Gas Inspired Oxygen 2L Radiology NAME: JENNI EDGE [facility] REC#: [id number] PT STATUS: REG ER : 1950 PHYSICIAN: GILLIAN GORDON ADMIT DATE: 03/03/17/ER Draft Date of Exam:03/03/17 CHEST 1 VIEW, AP/PA ONLY INDICATION: Difficult breathing. Portable chest 1:16 PM. There is some infiltrate present at the right lung base with a small effusion. There is some left basilar atelectasis. The upper lungs are clear. IMPRESSION: Left basilar atelectasis. Right basilar infiltrate and/or atelectasis with small associated right-sided pleural effusion. Dictated on workstation # [id number] Dict: 03/03/17 1327 Trans: 03/03/17 1329 [id number] Interpreted by: JOSE CARLOS BHARDWAJ Electronically signed by: ECG Impression ECG Initial ECG Rhythm: Normal Sinus A/P-Cardiology Assessment/Admission Diagnosis Dyspnea - likely multifactorial Pneumonia - management per medical services Ac on chronic systolic CHF CAD. Card cath of 02/09/17: near-total occlusion of LAD treated with overlapping Resolute 2.25x30 and 2.5x14 stents and both post-diated with a 2.75 mm balloon to 2.9 mm diameter; LCX and RCA had relatively mod disease; elevated LVEDP Echo of 01/26/17: LVEF 40%, triv to mild MR and TR, PASP 40 mmHG, mod conc LVH DM II Hypertension Quit tobacco use in or around 1999 CKD III; likely in some part d/t diabetic nephropathy, no evidence contrast nephropathy post cath of 02/09/17 Insomnia Discussion and Recomendations Multifactorial dyspnea. Pneumonia which is being treated per medical services. Acute on chronic systolic CHF. We will treat with IV Lasix. Monitor renal function closely d/t CKD. We will continue Plavix and ASA d/t recent stent placement. We will continue BB and statin. We would like to thank the medical services for this consult. Further recommendations will be based on his hospital course. This consult is being scribed by Linda Thomas APRN on behalf of Dr. Vela afte discussion regarding plan of care. Physician Assessment Physician Assessment Lungs: diminished bs at bases, coarse basal crackles Cor: reg A&R * As documented in our note above * Complex management due to multisystem involvement: pulm, card, nephric * Monitor labs closely * I had a detailed discussion with him and answered questions VIVIAN THOMAS [employer] FACILITATOR March 03, 2017 16:16 BEBE VELA MD FACP [facility] March 03, 2017 17:14
[2017-03-03] MEDS: FAMOTIDINE 20MG/2ML IV (PEPCID) IV SCH ×2 (16:41→19:47)
[2017-03-03] MEDS ORDERED: MULT-850 PO (17:08)
[2017-03-03] MEDS ORDERED: IBUP-30 PO (17:08)
[2017-03-03] MEDS ORDERED: ZOLP10TA5 PO (17:10)
[2017-03-03] MEDS: FUROSEMIDE 40 MG/4 ML INJ (LASIX) IV SCH (17:40)
[2017-03-03] MEDS: CATHETER FLUSH 10 ML SYR IV SCH (19:47)
[2017-03-03 19:51] VITALS: BP 129/82
[2017-03-03] MEDS ORDERED: ATORVASTATIN 40 MG (LIPITOR) TABLET PO SCH (21:00)
[2017-03-03] MEDS: PIPERACILLIN/TAZOBACTAM 4.5 GM/NS 100 ML IVPB IV SCH ×2 (21:58)
[2017-03-03] MEDS ORDERED: NON-FORMULARY MEDICATION 1 EA EA (Zolpidem Tartrate 10 MG) PO PRN (22:15)
[2017-03-03] MEDS: ZOLPIDEM 5 MG (AMBIEN) TAB PO PRN (22:43)
[2017-03-04] VITALS: BP 138/89
[2017-03-04 04:00] VITALS: BP 142/86
[2017-03-04 05:08] LABS: ALANINE AMINOTRANSFERASE 33 U/L (0-55); ALBUMIN 3.5 G/DL (3.2-4.5); ANION GAP 13 MMOL/L (5-14); ASPARTATE AMINO TRANSFERASE 21 U/L (5-34); BILIRUBIN,TOTAL 0.7 MG/DL (0.1-1.0); BLOOD UREA NITROGEN 20 MG/DL (7-18); BUN/CREATININE RATIO 11; CALCIUM 8.8 MG/DL (8.5-10.1); CARBON DIOXIDE 26 MMOL/L (21-32); CHLORIDE 106 MMOL/L (98-107); CREATININE SERUM 1.77 MG/DL (0.60-1.30); GFR ESTIMATED 39; GLUCOSE 108 MG/DL (70-105); MAGNESIUM 1.7 MG/DL (1.8-2.4); POTASSIUM 3.1 MMOL/L (3.6-5.0); SODIUM 145 MMOL/L (135-145); TOTAL PROTEIN 6.5 G/DL (6.4-8.2)
[2017-03-04 05:09] LABS: BASOPHILS # (AUTO) 0.1 10^3/uL (0.0-0.1); BASOPHILS % (AUTO) 1 % (0-10); EOSINOPHILS # (AUTO) 0.3 10^3/uL (0.0-0.3); EOSINOPHILS % (AUTO) 4 % (0-10); LYMPHOCYTES # (AUTO) 1.2 X 10^3 (1.0-4.0); LYMPHOCYTES % (AUTO) 16 % (12-44); MEAN CORPUSCULAR HEMOGLOBIN 29 PG (25-34); MEAN CORPUSCULAR HGB CONC 34 G/DL (32-36); MEAN CORPUSCULAR VOLUME 86 FL (80-99); MEAN PLATELET VOLUME 11.2 FL (7.4-10.4); MONOCYTES # (AUTO) 0.8 X 10^3 (0.0-1.0); MONOCYTES % (AUTO) 10 % (0-12); NEUTROPHILS # (AUTO) 5.6 X 10^3 (1.8-7.8); NEUTROPHILS % (AUTO) 70 % (42-75); PLATELET COUNT 258 10^3/uL (130-400); RED BLOOD COUNT 4.39 10^6/uL (4.35-5.85); RED CELL DISTRIBUTION WIDTH 15.2 % (10.0-14.5); WHITE BLOOD COUNT 7.9 10^3/uL (4.3-11.0)
[2017-03-04] MEDS: FUROSEMIDE 40 MG/4 ML INJ (LASIX) IV SCH ×2 (06:13→16:44)
[2017-03-04] MEDS: PIPERACILLIN/TAZOBACTAM 4.5 GM/NS 100 ML IVPB IV SCH ×6 (06:14→21:22)
[2017-03-04] MEDS: CATHETER FLUSH 10 ML SYR IV SCH ×3 (06:17→21:21)
[2017-03-04] MEDS ORDERED: KCL 20 MEQ TAB (K-DUR) PO SCH (07:00)
[2017-03-04 07:45] VITALS: BP 151/92
--- NOTE | 2017-03-04 08:16 | Diagnostic Imaging Report ---
PA and lateral views of the chest. INDICATION: Followup pneumonia. FINDINGS: There is small to moderate-sized pleural effusion. There is adjacent right basilar infiltrate or atelectasis. The findings are similar to 03/03/17. Minimal left basilar atelectasis also seen. The heart size is moderately enlarged. No pneumothorax. The mediastinum and carmen appear unremarkable. IMPRESSION: Stable small to moderate-sized pleural effusion with adjacent right basilar infiltrates or atelectasis. Dictated by: Dictated on workstation # [id number]
--- NOTE | 2017-03-04 08:57 | Progress Note-Cardiology ---
Cardiology SOAP Progress Note Subjective: States he feels much better today. Shortness of breath has improved. He is able to lie flat this morning. No c/o CP, palpitations. He continues to feel weak, but states this is improving. Objective: I&O/Vital Signs Vital Sign - Last 12Hours 03/03/17 03/04/17 03/04/17 03/04/17 22:40 00:00 00:00 01:00 Temp 96.5 Pulse 81 82 B/P (MAP) 138/89 O2 Flow Rate 2.00 2.00 2.00 03/04/17 03/04/17 03/04/17 03/04/17 04:00 04:00 07:00 07:45 Temp 97.1 97.5 Pulse 84 85 77 Resp 16 20 B/P (MAP) 142/86 151/92 Pulse Ox 97 94 O2 Flow Rate 2.00 2.00 2.00 Intake and Output 03/04/17 00:00 Intake Total 1260 ml Output Total 2070 ml Balance -810 ml Weight (Pounds): 184 Weight (Ounces): 12.8 Weight (Calculated Kilograms): 83.270987 Constitutional: appears stated age, No apparent distress, well-developed, well- nourished Respiratory: No accessory muscle use, No respiratory distress, chest expansion is symmetric, chest is bilaterally symmetric, other (diminished bases bilat; R>L ) Cardiovascular: regular rate-rhythm, No JVD, S1 and S2 Gastrointestional: No tender, soft, audible bowel sounds, No spleenomegaly Extremities: No clubbing, No cyanosis, No significant edema Neurologic/Psychiatric: alert, oriented x 3, power is 5/5 both on sides Skin: No rash, No ulcerations Results/Procedures: Labs Laboratory Tests 03/03/17 12:30: White Blood Count 7.7, Red Blood Count 4.64, Hemoglobin 13.3, Hematocrit 40, Mean Corpuscular Volume 86, Mean Corpuscular Hemoglobin 29, Mean Corpuscular Hemoglobin Concent 34, Red Cell Distribution Width 14.9H, Platelet Count 256, Mean Platelet Volume 11.3H, Neutrophils (%) (Auto) 65, Lymphocytes (%) (Auto) 20 , Monocytes (%) (Auto) 13H, Eosinophils (%) (Auto) 1, Basophils (%) (Auto) 1, Neutrophils # (Auto) 5.0, Lymphocytes # (Auto) 1.5, Monocytes # (Auto) 1.0, Eosinophils # (Auto) 0.1, Basophils # (Auto) 0.1, Prothrombin Time 13.3, INR Comment 1.0, Activated Partial Thromboplast Time 34, D-Dimer 0.53H, Sodium Level 144, Potassium Level 3.9, Chloride Level 106, Carbon Dioxide Level 24, Anion Gap 14, Blood Urea Nitrogen 23H, Creatinine 1.72H, Estimat Glomerular Filtration Rate 40, BUN/Creatinine Ratio 13, Glucose Level 149H, Calcium Level 9.3, Magnesium Level 1.8, Total Bilirubin 0.9, Aspartate Amino Transf (AST/SGOT ) 22, Alanine Aminotransferase (ALT/SGPT) 38, Alkaline Phosphatase 100, Total Creatine Kinase 112, Creatine Kinase MB 6.7*H, Troponin I < 0.30, B-Type Natriuretic Peptide 3117.1H, Total Protein 7.0, Albumin 4.0, TSH [place] Testing 1.93 03/03/17 13:07: Blood Gas Puncture Site [facility], Blood Gas Patient Temperature 96.1, Arterial Blood pH 7.48H, Arterial Blood Partial Pressure CO2 30L, Arterial Blood Partial Pressure O2 66L, Arterial Blood HCO3 22L, Arterial Blood Total CO2 23.4, Arterial Blood Oxygen Saturation 95, Arterial Blood Base Excess -0.9, Oscar Test YES-POS, Blood Gas Ventilator Setting NO, Blood Gas Inspired Oxygen 2L 03/03/17 19:46: Glucometer 215H 03/04/17 04:40: White Blood Count 7.9, Red Blood Count 4.39, Hemoglobin 12.6L, Hematocrit 38L, Mean Corpuscular Volume 86, Mean Corpuscular Hemoglobin 29, Mean Corpuscular Hemoglobin Concent 34, Red Cell Distribution Width 15.2H, Platelet Count 258, Mean Platelet Volume 11.2H, Neutrophils (%) (Auto) 70, Lymphocytes (%) (Auto) 16 , Monocytes (%) (Auto) 10, Eosinophils (%) (Auto) 4, Basophils (%) (Auto) 1, Neutrophils # (Auto) 5.6, Lymphocytes # (Auto) 1.2, Monocytes # (Auto) 0.8, Eosinophils # (Auto) 0.3, Basophils # (Auto) 0.1, Sodium Level 145, Potassium Level 3.1L, Chloride Level 106, Carbon Dioxide Level 26, Anion Gap 13, Blood Urea Nitrogen 20H, Creatinine 1.77H, Estimat Glomerular Filtration Rate 39, BUN/ Creatinine Ratio 11, Glucose Level 108H, Calcium Level 8.8, Magnesium Level 1.7L , Total Bilirubin 0.7, Aspartate Amino Transf (AST/SGOT) 21, Alanine Aminotransferase (ALT/SGPT) 33, Alkaline Phosphatase 89, Troponin I < 0.30, Total Protein 6.5, Albumin 3.5 Microbiology 03/03/17 Gram Stain - Final, Resulted 03/03/17 Sputum Culture - Preliminary, Resulted Probable Klebsiella/Enterobact Procedures NAME: JENNI EDGE [facility] REC#: [id number] PT STATUS: ADM IN : 1950 PHYSICIAN: JEFF MARIANO MD ADMIT DATE: 03/03/17/ICU Draft Date of Exam:03/04/17 CHEST PA/LAT (2 VIEW) PA and lateral views of the chest. INDICATION: Followup pneumonia. FINDINGS: There is small to moderate-sized pleural effusion. There is adjacent right basilar infiltrate or atelectasis. The findings are similar to 03/03/17. Minimal left basilar atelectasis also seen. The heart size is moderately enlarged. No pneumothorax. The mediastinum and carmen appear unremarkable. IMPRESSION: Stable small to moderate-sized pleural effusion with adjacent right basilar infiltrates or atelectasis. Dictated on workstation # [id number] Dict: 03/04/17 0809 Trans: 03/04/17 0816 [id number] Interpreted by: CHAO RODRIGUEZ MD Electronically signed by: A/P: Assessment: Dyspnea - likely multifactorial Pneumonia - management per medical services Ac on chronic systolic CHF CAD. Card cath of 02/09/17: near-total occlusion of LAD treated with overlapping Resolute 2.25x30 and 2.5x14 stents and both post-diated with a 2.75 mm balloon to 2.9 mm diameter; LCX and RCA had relatively mod disease; elevated LVEDP Echo of 01/26/17: LVEF 40%, triv to mild MR and TR, PASP 40 mmHG, mod conc LVH DM II Hypertension Quit tobacco use in or around 1999 CKD III; likely in some part d/t diabetic nephropathy, no evidence contrast nephropathy post cath of 02/09/17 Insomnia Plan: Multifactorial dyspnea - improving Pneumonia which is being treated per medical services Acute on chronic systolic CHF We will continue IV Lasix Monitor renal function closely d/t CKD Replace electrolytes Physician Assessment Physician Assessment Lungs: good air entry, but diminished at the bases Cor: reg A&R * As documented in our note above * I discussed his case in detail with Dr Frank of the [facility] and requested consideration of bronchoscopy * I spoke with Mr Edge and answered questions * Continue to monitor labs VIVIAN SILVA MARKETING SUPPORT ASSISTANT Mar 04, 2017 08:57 RHYS HINKLE MD FACP FAC CCDS Mar 04, 2017 09:07
[2017-03-04] MEDS ORDERED: CLOPIDOGREL 75 MG (PLAVIX) TABLET PO SCH (09:00)
[2017-03-04] MEDS ORDERED: ASPIRIN 81 MG CHEW (CHILDREN'S ASA) PO SCH (09:00)
[2017-03-04] MEDS ORDERED: meTOprolol SUCCINATE 100 MG (TOPROL XL) TAB PO SCH (09:00)
[2017-03-04] MEDS ORDERED: KCL 20 MEQ TAB (K-DUR) PO NR (09:30)
[2017-03-04] MEDS: MAGNESIUM 1 GM/100 ML IVPB 100 ML IV SCH ×2 (09:57→10:53)
--- NOTE | 2017-03-04 11:08 | History & Physical-Hospitalist ---
HPI History of Present Illness: HPI/Chief Complaint CC: SOB HPI: This is a 66 yoWM pt of mine with a very complicated recent medical hx subacute CO with heart failure status post stent placement who presented to the ER after he was dx with pneumonia at Urgent Care the day before and worsened through the night. Dr. Frank Review: Dr. Vela would like pt to have a Bronch employment coach: Pt is feeling better Pt's family states that Dr. Frank may do a Bronch Dr. Vela would like the pt to be on one more day of IV Lasix Glipizide has not been restarted and his family is concerned about this. Pt does not currently have anything ordered for DM management, but his labs are okay today. Pt is a step down pt, but will most likely stay ICU Patient Interview: Pt states that he is feeling much better today and his strength is improving. Pt states that he felt horrible last weekend. Labs and CXR were discussed with the pt and he was informed that everything looks good Physical exam stable. Lungs sound perfect. Pt was informed that he is on antibiotics for the pneumonia Home O2 was discussed with the pt for the short term. Pt does not want to require home O2. Pt states that he has not used it during his stay in ICU. Pt was informed that his home meds were restarted. Pt's friend is concerned with his sleeping issues and she wonders if he has sleep apnea. Pt states that he has never had sleep issues before and the Ambien that he was given in clinic has not really been helping. Pt is concerned about taking antibiotics home. Pt believes that last time he DC from [facility] he needed antibiotics, but did not take them home; pt believes that because he did not go home with antibiotics, he developed his current pneumonia. Scribed by Marjorie Caballero under the direct supervision of Dr. Glover. Source: patient Exam Limitations: no limitations Date Seen 03/04/17 Attending Physician Zeke Vaca MD PCP Sue Glover DO Referring Physician Date of Admission March 03, 2017 at 14:00 Home Medications & Allergies Home Medications Reviewed patient Home Medication Reconciliation Form Allergies Allergies Coded Allergies No Known Drug Allergies (Unverified01/25/17) Past Uavdiub-Qhopeg-Jnyueg Hx Patient Social History Marrital Status: cohabiting Employed/Student: employed Alcohol Use: Rarely Uses Recreational Drug Use: No Smoking Status: Former Smoker Type Used: Cigarettes 2nd Hand Smoke Exposure: No Physical Abuse Screen: No Sexual Abuse: No Recent Foreign Travel: No Contact w/other who traveled: No Recent Hopitalizations: Yes (stents placed 2 weeks ago) Recent Infectious Disease Expo: No Seasonal Allergies Seasonal Allergies: No Surgeries HX Surgeries: Yes Respiratory Hx Respiratory Disorders: Yes Respiratory Disorders: COPD, Pneumonia Cardiovascular Hx Cardiovascular Disorders: Yes Cardiac Disorders: Coronary Artery Disease, High Cholesterol, Hypertension Neurological Hx Neurological Disorders: Yes Neurological Disorders: Neuropathy Genitourinary Hx Genitourinary Disorders: Yes (elevated creatinine) Genitourinary Disorders: Renal Failure Gastrointestinal Hx Gastrointestinal Disorders: No Musculoskeletal Hx Musculoskeletal Disorders: Yes Musculoskeletal Disorders: Chronic Back Pain, Gout Endocrine Hx Endocrine Disorders: Yes Endocrine Disorders: Diabetes, Non-Insulin dep HEENT HEENT Disorders: Cataract Loss of Vision: Denies Hearing Impairment: Denies Cancer Hx Cancer: No Psychosocial Hx Psychiatric Problems: No Reviewed Nursing Assessment Reviewed/Agree w Nursing PMH: Yes Family Medical History Significant Family History: No Pertinent Family Hx Review of Systems Constitutional: see HPI EENTM: no symptoms reported Respiratory: dyspnea on exertion, short of breath, wheezing Cardiovascular: no symptoms reported Gastrointestinal: no symptoms reported Genitourinary: no symptoms reported Musculoskeletal: no symptoms reported Skin: no symptoms reported Psychiatric/Neurological: Depressed All Other Systems Reviewed Negative Unless Noted: Yes Physical Exam Physical Exam Vital Signs Vital Sign - Last 12Hours 03/03/17 03/03/17 12:30 12:46 Temp 98.2 Pulse 89 Resp 22 B/P (MAP) 137/93 Pulse Ox 98 O2 Delivery Nasal Cannula O2 Flow Rate 2.00 FiO2 91 Capillary Refill : Less Than 3 Seconds General Appearance: No Apparent Distress, WD/WN, Chronically ill Eyes: Bilateral Eye Normal Inspection, Bilateral Eye PERRL HEENT: PERRL/EOMI, Normal ENT Inspection, Pharynx Normal Neck: Full Range of Motion, Normal Inspection, Non Tender, Supple, Carotid Bruit Respiratory: Chest Non Tender, Lungs Clear, No Accessory Muscle Use, No Respiratory Distress, Decreased Breath Sounds Cardiovascular: Regular Rate, Rhythm, No Edema, No Gallop, No JVD, No Murmur, Normal Peripheral Pulses Gastrointestinal: Normal Bowel Sounds, No Organomegaly, No Pulsatile Mass, Non Tender, Soft Back: Normal Inspection, No CVA Tenderness, No Vertebral Tenderness Extremity: Normal Capillary Refill, Normal Inspection, Normal Range of Motion, Non Tender, No Calf Tenderness, No Pedal Edema Neurologic/Psychiatric: Alert, Oriented x3, No Motor/Sensory Deficits, Depressed Affect Skin: Normal Color, Warm/Dry Lymphatic: No Adenopathy Results Results/Procedures Lab Laboratory Tests 03/03/17 12:30 03/04/17 04:40 Assessment/Plan Admission Diagnosis Assessment: Increased shortness of breath due to pneumonia but normal white count undergoing bronchoscopy Acute exacerbation of congestive heart failure Ischemic cardiomyopathy with stent placed [address] Vela Chronic renal insufficiency creatinine 1.7 chronic COPD presumed Severe insomnia due to recent medical events Long-standing noncompliance with medical treatments HLP Gout HTN Assessment and Plan Plan: Stop PO Lasix while he is on IV Lasix Home O2 eval but he declines it if he meets criteria for it regardless Encourage compliance Clinical Quality Measures DVT/VTE Risk/Contraindication: Risk Factor Score Per Nursin RFS Level Per Nursing on Admit: 4+=Very High SUE GLOVER DO Mar 04, 2017 11:08
--- NOTE | 2017-03-04 11:11 | Pulmonary Consultation ---
History of Present Illness History of Present Illness Date of Consultation 03/04/17 11:10 Date of Admission Allergies and Home Medications Allergies Coded Allergies: No Known Drug Allergies (Unverified , 01/25/17) Home Medications Aspirin 81 Mg Tab.chew, 81 MG PO DAILY, (Reported) Atorvastatin Calcium 40 Mg Tablet, 40 MG PO HS, (Reported) Clopidogrel Bisulfate 75 Mg Tablet, 75 MG PO DAILY, (Reported) Furosemide 40 Mg Tablet, 40 MG PO DAILY, (Reported) Glimepiride 4 Mg Tablet, 4 MG PO BID, (Reported) Ibuprofen 200 Mg Tablet, 800 MG PO DAILY PRN for PAIN-MILD, (Reported) TAKES 4 (200 MG) TABLETS Magnesium Oxide 400 Mg Tablet, 400 MG PO BID, (Reported) Metoprolol Succinate 100 Mg Tab.er.24h, 100 MG PO DAILY, (Reported) Multivit-Min/FA/Lycopene/Lut 1 Each Tablet, 1 TAB PO DAILY, (Reported) Potassium Chloride 10 Meq Tab.er.prt, 10 MEQ PO DAILY, (Reported) Zolpidem Tartrate 10 Mg Tablet, 10 MG PO HS PRN for INSOMNIA, (Reported) Past Qhehswl-Lguffu-Gcnwqq Hx Patient Social History Alcohol Use: Rarely Uses Recreational Drug Use: No Smoking Status: Former Smoker Type Used: Cigarettes 2nd Hand Smoke Exposure: No Recent Foreign Travel: No Contact w/Someone Who Travel: No Recent Infectious Disease Expo: No Recent Hopitalizations: Yes (stents placed 2 weeks ago) Physical Abuse Screen: No Sexual Abuse: No Immunizations Up To Date PED Vaccines UTD: No Seasonal Allergies Seasonal Allergies: No Surgeries HX Surgeries: Yes Respiratory Hx Respiratory Disorders: No Respiratory Disorders: Pneumonia Cardiovascular Hx Cardiac Disorders: Yes Cardiac Disorders: High Cholesterol, Hypertension Neurological Hx Neurological Disorders: Yes Neurological Disorders: Neuropathy Genitourinary Hx Genitourinary Disorders: Yes (elevated creatinine) Genitourinary Disorders: Renal Failure Gastrointestinal Hx Gastrointestinal Disorders: No Musculoskeletal Hx Musculoskeletal Disorders: Yes Musculoskeletal Disorders: Chronic Back Pain Endocrine Hx Endocrine Disorders: Yes Endocrine Disorders: Diabetes, Non-Insulin dep HEENT HEENT Disorders: Cataract Loss of Vision: Denies Hearing Impairment: Denies Cancer Hx Cancer: No Psychosocial Hx Psychiatric Problems: No Reviewed Nursing Assessment Reviewed/Agree w Nursing PMH: Yes Family Medical History Significant Family History: No Pertinent Family Hx Exam Exam Vital Signs Date Time Temp Pulse Resp B/P (MAP) Pulse Ox O2 Delivery O2 Flow Rate FiO2 03/04/17 07:45 97.5 77 20 151/92 94 2.00 03/04/17 07:00 85 03/04/17 04:00 97.1 84 16 142/86 97 2.00 03/04/17 04:00 2.00 03/04/17 01:00 82 03/04/17 00:00 96.5 81 138/89 2.00 03/04/17 00:00 2.00 03/03/17 22:40 2.00 03/03/17 21:00 21 03/03/17 19:52 2 2.00 03/03/17 19:51 96.2 81 18 129/82 96 2.00 03/03/17 19:00 83 03/03/17 16:00 2 03/03/17 15:00 2.00 03/03/17 15:00 96.4 85 20 140/89 98 2.00 03/03/17 14:47 98.0 85 27 97 2.00 03/03/17 13:09 96 2.00 03/03/17 12:46 97 Nasal Cannula 2.00 91 03/03/17 12:30 98.2 89 22 137/93 98 Nasal Cannula 2.00 I & O 03/04/17 07:00 Intake Total 1660 ml Output Total 2545 ml Balance -885 ml Capillary Refill: Less Than 3 Seconds Gastrointestinal: normal bowel sounds, non tender, soft Results Lab Laboratory Tests 03/03/17 12:30 03/04/17 04:40 Assessment/Plan Assessment/Plan small right pleural effusion with infiltration -check CT of chest today without contrast Clinical Quality Measures DVT/VTE Risk/Contraindication: Risk Factor Score Per Nursin RFS Level Per Nursing on Admit: 4+=Very High ESTEPHANIA MILAN DO Mar 04, 2017 11:11
[2017-03-04] MEDS: inSUlin ASPART (NovoLOG) 1 UNIT/0.01 ML (CHARGE PER UNIT) SC SCH ×3 (11:21→21:22)
[2017-03-04 11:49] VITALS: BP 128/84
[2017-03-04 15:09] VITALS: BP 139/82
--- NOTE | 2017-03-04 15:25 | Diagnostic Imaging Report ---
PROCEDURE: CT chest without contrast. TECHNIQUE: Multiple contiguous axial images were obtained through the chest without the use of intravenous contrast. INDICATION: Followup pneumonia. Shortness of breath. Patient is also tired all the time. FINDINGS: There is a vfyjatst-og-gdesi right pleural effusion. A deslz-ju-fyetqhrw left effusion is seen. The effusions have subpulmonic components without definite evidence of loculation. There is a minimal pericardial effusion. There are areas of consolidation seen in the lung bases with air bronchograms. This could be related to atelectasis, although infectious component cannot be ruled out. The thoracic aorta is normal in caliber. There is no mediastinal mass or significantly enlarged nodes. No axillary lymphadenopathy. The hilar vessels are not opacified with no obvious adjacent hilar mass or adenopathy seen. Sections in the upper abdomen appear grossly unremarkable. The osseous structures demonstrate rwsi-[id number] degenerative changes in the thoracic spine. IMPRESSION: There are bilateral pleural effusions, moderate to large on the right and small on the left. Areas of consolidation in the lung bases adjacent to the effusions could be from atelectasis with or without infectious component. Dictated by: Dictated on workstation # [id number]
[2017-03-04] MEDS ORDERED: VANCOMYCIN 1250 MG/NS 250 ML IVPB IV SCH ×2 (16:00)
[2017-03-04] MEDS: KCL 20 MEQ TAB (K-DUR) PO SCH (17:50)
[2017-03-04 20:00] VITALS: BP 124/75
[2017-03-04] MEDS ORDERED: ATORVASTATIN 40 MG (LIPITOR) TABLET PO SCH (21:00)
[2017-03-04] MEDS ORDERED: FAMOTIDINE 20MG/2ML IV (PEPCID) IV SCH (21:00)
[2017-03-04] MEDS: GLIMEPIRIDE 4 MG (AMARYL) TAB PO SCH (21:21)
[2017-03-04] MEDS: MAGNESIUM OXIDE (MAG-OX)400 MG TAB PO SCH (21:21)
[2017-03-04] MEDS: ZOLPIDEM 5 MG (AMBIEN) TAB PO PRN (21:21)
[2017-03-05] VITALS: BP 135/66
[2017-03-05 04:00] VITALS: BP 142/78
[2017-03-05 04:33] LABS: CALCIUM 9.1 MG/DL (8.5-10.1); CREATININE SERUM 1.91 MG/DL (0.60-1.30); POTASSIUM 3.6 MMOL/L (3.6-5.0)
[2017-03-05] MEDS: FUROSEMIDE 40 MG/4 ML INJ (LASIX) IV SCH (06:15)
[2017-03-05] MEDS: CATHETER FLUSH 10 ML SYR IV SCH (06:15)
[2017-03-05] MEDS: PIPERACILLIN/TAZOBACTAM 4.5 GM/NS 100 ML IVPB IV SCH ×2 (06:15)
[2017-03-05] MEDS: inSUlin ASPART (NovoLOG) 1 UNIT/0.01 ML (CHARGE PER UNIT) SC SCH (06:16)
--- NOTE | 2017-03-05 08:25 | Progress Note-Cardiology ---
Cardiology SOAP Progress Note Subjective: Sitting up on the side of the bed. States he feels stronger today. No c/o CP, palpitations, syncope or near syncope. He feels his breathing is better. He would like to go home. Objective: I&O/Vital Signs Vital Sign - Last 12Hours 03/05/17 03/05/17 03/05/17 00:00 01:00 04:00 Temp 97.6 97.8 Pulse 91 85 79 Resp 21 16 B/P (MAP) 135/66 142/78 Pulse Ox 96 95 Intake and Output 03/05/17 00:00 Intake Total 1000 ml Output Total 2800 ml Balance -1800 ml Weight (Pounds): 186 Weight (Ounces): 12.8 Weight (Calculated Kilograms): 84.873110 Constitutional: appears stated age, No apparent distress, well-developed, well- nourished Respiratory: No accessory muscle use, No respiratory distress, chest expansion is symmetric, chest is bilaterally symmetric, other (diminished bases bilat; R> L (improving)) Cardiovascular: regular rate-rhythm, No JVD, S1 and S2 Gastrointestional: No tender, soft, audible bowel sounds, No spleenomegaly Extremities: No clubbing, No cyanosis, No significant edema Neurologic/Psychiatric: alert, oriented x 3, power is 5/5 both on sides Skin: No rash, No ulcerations Results/Procedures: Labs Laboratory Tests 03/04/17 11:14: Glucometer 131H 03/04/17 16:43: Glucometer 95 03/04/17 21:20: Glucometer 181H 03/05/17 03:52: Sodium Level 147H, Potassium Level 3.6, Chloride Level 107, Carbon Dioxide Level 26, Anion Gap 14, Blood Urea Nitrogen 18, Creatinine 1.91H, Estimat Glomerular Filtration Rate 35, BUN/Creatinine Ratio 9, Glucose Level 125H, Calcium Level 9.1, Magnesium Level 2.0 Microbiology 03/03/17 Blood Culture - Preliminary, Resulted No growth 03/03/17 Gram Stain - Final, Resulted 03/03/17 Sputum Culture - Preliminary, Resulted Klebsiella Pneumoniae Yeast Species A/P: Assessment: Dyspnea - likely multifactorial Pneumonia - management per medical services Ac on chronic systolic CHF - clinically improving CAD. Card cath of 02/09/17: near-total occlusion of LAD treated with overlapping Resolute 2.25x30 and 2.5x14 stents and both post-diated with a 2.75 mm balloon to 2.9 mm diameter; LCX and RCA had relatively mod disease; elevated LVEDP Echo of 01/26/17: LVEF 40%, triv to mild MR and TR, PASP 40 mmHG, mod conc LVH DM II Hypertension Quit tobacco use in or around 1999 CKD III; likely in some part d/t diabetic nephropathy, no evidence contrast nephropathy post cath of 02/09/17 Insomnia Plan: Multifactorial dyspnea - improving Pneumonia which is being treated per medical services Acute on chronic systolic CHF - clinically improving We will change Lasix to oral today Monitor renal function closely d/t CKD Out pt f/u next week Physician Assessment Physician Assessment Lungs: good bilat air entry Cor: reg A&R * As documented in our note above * Change diuretics to oral * I spoke with him and answered questions VIVIAN SILVA Mar 05, 2017 08:25 RHYS HINKLE MD FACP FAC CCDS Mar 05, 2017 08:53
[2017-03-05] MEDS ORDERED: POTA-51 PO (08:39)
[2017-03-05] MEDS ORDERED: FURO80TA83 PO (08:39)
[2017-03-05 08:40] VITALS: BP 146/91
[2017-03-05] MEDS ORDERED: METO2.5T PO (08:43)
[2017-03-05] MEDS ORDERED: FUROSEMIDE 40 MG (LASIX) TAB PO SCH (09:00)
[2017-03-05] MEDS ORDERED: CLOPIDOGREL 75 MG (PLAVIX) TABLET PO SCH (09:00)
[2017-03-05] MEDS ORDERED: meTOprolol SUCCINATE 100 MG (TOPROL XL) TAB PO SCH (09:00)
[2017-03-05] MEDS ORDERED: LEVOFLOXACIN 750 MG/D5W 150 ML PRE-MIX IV SCH (09:00)
[2017-03-05] MEDS ORDERED: ASPIRIN 81 MG CHEW (CHILDREN'S ASA) PO SCH (09:00)
--- NOTE | 2017-03-05 09:55 | Pulmonary Progress Note ---
Subjective Subjective/Events-last exam PT feels improved no complications noted. Exam Exam Vital Signs Date Time Temp Pulse Resp B/P (MAP) Pulse Ox O2 Delivery O2 Flow Rate FiO2 03/05/17 04:00 97.8 79 16 142/78 95 03/05/17 01:00 85 03/05/17 00:00 97.6 91 21 135/66 96 03/04/17 20:00 97.7 82 21 124/75 93 03/04/17 19:00 93 03/04/17 15:09 97.8 88 16 139/82 93 03/04/17 13:00 82 03/04/17 11:49 97.4 78 20 128/84 95 03/04/17 11:38 I & O 03/05/17 07:00 Intake Total 1300 ml Output Total 3800 ml Balance -2500 ml General Appearance: No Apparent Distress, WD/WN, Chronically ill HEENT: PERRL/EOMI, Normal ENT Inspection, Pharynx Normal Neck: Full Range of Motion, Normal Inspection, Non Tender, Supple, Carotid Bruit Respiratory: Chest Non Tender, Lungs Clear, No Accessory Muscle Use, No Respiratory Distress, Decreased Breath Sounds Cardiovascular: Regular Rate, Rhythm, No Edema, No Gallop, No JVD, No Murmur, Normal Peripheral Pulses Capillary Refill: Less Than 3 Seconds Gastrointestinal: normal bowel sounds, non tender, soft Extremity: Normal Capillary Refill, Normal Inspection, Normal Range of Motion, Non Tender, No Calf Tenderness, No Pedal Edema Neurologic/Psychiatric: Alert, Oriented x3, No Motor/Sensory Deficits, Depressed Affect Skin: Normal Color, Warm/Dry Lymphatic: No Adenopathy Results Lab Laboratory Tests 03/03/17 12:30 03/04/17 04:40 03/05/17 03:52 Assessment/Plan Assessment/Plan Large R>L pleural effusion probably secondary to volume overload BNP 3017 -Continue lasix 80mg daily -Pt is on plavix with a recent stent will hold off on thoracentesis Dyspnea Will have pt f/u with me in 2 wks and will repeat CXR at that time. 233-- Discussed with Dr. Vela regarding plan of care. I also answered all of patients questions. 45 min was spent with patient and medical team. Clinical Quality Measures DVT/VTE Risk/Contraindication: Risk Factor Score Per Nursin RFS Level Per Nursing on Admit: 4+=Very High ESTEPHANIA MILAN DO Mar 05, 2017 09:55
[2017-03-05] MEDS: GLIMEPIRIDE 4 MG (AMARYL) TAB PO SCH (09:56)
[2017-03-05] MEDS: MAGNESIUM OXIDE (MAG-OX)400 MG TAB PO SCH (09:56)
[2017-03-05] MEDS: KCL 20 MEQ TAB (K-DUR) PO SCH (09:57)
[2017-03-05 11:15] VITALS: BP 129/83
[2017-03-05] MEDS ORDERED: CEFD300C3 PO (11:23)
--- NOTE | 2017-03-05 11:35 | Discharge Summary-Hospitalist ---
Diagnosis/Chief Complaint Date of Admission March 03, 2017 at 14:00 Date of Discharge Discharge Date: Mar 05, 2017 Admission Diagnosis Assessment: Increased shortness of breath due to pneumonia but normal white count undergoing bronchoscopy Acute exacerbation of congestive heart failure Ischemic cardiomyopathy with stent placed [address] Vela Chronic renal insufficiency creatinine 1.7 chronic COPD presumed Severe insomnia due to recent medical events Long-standing noncompliance with medical treatments HLP Gout HTN Discharge Diagnosis Assessment: Increased shortness of breath due to pneumonia due to pleural effusion Acute exacerbation of congestive heart failure Ischemic cardiomyopathy with stent placed [address] Vela Chronic renal insufficiency creatinine 1.9 chronic COPD presumed Severe insomnia due to recent medical events Long-standing noncompliance with medical treatments HLP Gout HTN Plan: Stop PO Lasix while he is on IV Lasix Home O2 eval but he declines it if he meets criteria for it regardless Encourage compliance Reason Hospital Visit/Course CC: SOB HPI: This is a 66 yoWM pt of mine with a very complicated recent medical hx subacute PA with heart failure status post stent placement who presented to the ER after he was dx with pneumonia at Urgent Care the day before and worsened through the night. Dr. Frank Review: Dr. Vela would like pt to have a Bronch roll line operator: Pt is feeling better Pt's family states that Dr. Frank may do a Bronch Dr. Vela would like the pt to be on one more day of IV Lasix Glipizide has not been restarted and his family is concerned about this. Pt does not currently have anything ordered for DM management, but his labs are okay today. Pt is a step down pt, but will most likely stay ICU Patient Interview: Pt states that he is feeling much better today and his strength is improving. Pt states that he felt horrible last weekend. Labs and CXR were discussed with the pt and he was informed that everything looks good Physical exam stable. Lungs sound perfect. Pt was informed that he is on antibiotics for the pneumonia Home O2 was discussed with the pt for the short term. Pt does not want to require home O2. Pt states that he has not used it during his stay in ICU. Pt was informed that his home meds were restarted. Pt's friend is concerned with his sleeping issues and she wonders if he has sleep apnea. Pt states that he has never had sleep issues before and the Ambien that he was given in clinic has not really been helping. Pt is concerned about taking antibiotics home. Pt believes that last time he DC from [facility] he needed antibiotics, but did not take them home; pt believes that because he did not go home with antibiotics, he developed his current pneumonia. Scribed by Marjorie Caballero under the direct supervision of Dr. Glover. Notes from 03/05/17: Chart Review: No fever Vitals stable Accucheck improved Creatinine 1.91 up from 1.77 Sodium 147 Pharmacy Review: Dr Vela increased the Lasix to 80 We may do a thoracentesis while on the Lasix if necessary He has some atelectasis that may resolve with the fluid roll line operator: Dr Vela has put in all the cardio medications Patient Interview: Pt states that he only slept 3 hours last night, which is a little better than he has been getting Pt states that he is continuing to feel better Pt's lungs sounded good today; physical exam was stable Pt states that there is some fluid outside the lungs at this time according to the CAT scan I think that the pt is just in a cycle right now with the shock of the original heart problem I educated the pt that we all get into a shock situation like this at some point and this is something that we work through and continue to keep the moral up Pt will continue coverage with the antibiotics just to be on the safe side with the extra fluid no fever vital signs stable, pleasant Regular rate and rhythm, clear to auscultation bilaterally but diminished in the bases Plan: F/U 1 week with me in the clinic as well as Dr. Monika Cid final med list with 80 on the Lasix DC today Continue coverage with antibiotics [facility] Scribed by Marjorie Caballero under the direct supervision of Dr. Glover. Hospital course: Patient had a brief hospital course was hospitalized for pneumonia and exacerbation of congestive heart failure. Creatinine was monitor closely due to renal insufficiency and increased diuretics had to increase the creatinine 1.9 at day of discharge. No home oxygen was met criteria isidro so he was discharged on antibiotic for the atelectasis superimposed with infiltrate with Omnicef and would have close follow-up with me and labs check with Dr. Vela. Patient will need thoracentesis but Plavix is complicating the issue but will need that if the fluid is not resorbed. Discharge Summary Discharge Physical Examination Allergies: Coded Allergies: No Known Drug Allergies (Unverified , 4/24/17) Vitals & I&Os Vital Signs Date Time Temp Pulse Resp B/P (MAP) Pulse Ox O2 Delivery O2 Flow Rate FiO2 03/05/17 11:15 97.8 79 20 129/83 96 03/04/17 11:38 03/03/17 21:00 21 03/03/17 12:46 Nasal Cannula Hospital Course Labs (last 24 hrs) Laboratory Tests 03/04/17 16:43: Glucometer 95 03/04/17 21:20: Glucometer 181H 03/05/17 03:52: Sodium Level 147H, Potassium Level 3.6, Chloride Level 107, Carbon Dioxide Level 26, Anion Gap 14, Blood Urea Nitrogen 18, Creatinine 1.91H, Estimat Glomerular Filtration Rate 35, BUN/Creatinine Ratio 9, Glucose Level 125H, Calcium Level 9.1, Magnesium Level 2.0 Microbiology 03/03/17 Blood Culture - Preliminary, Resulted No growth 03/03/17 Gram Stain - Final, Resulted 03/03/17 Sputum Culture - Preliminary, Resulted Klebsiella Pneumoniae Yeast Species Pending Labs Discharge Home Medications: Active Scripts Active Cefdinir 300 Mg Capsule 300 Mg PO BID Metolazone 2.5 Mg Tablet 2.5 Mg PO DAILY Potassium Chloride 20 Meq Tablet.er 20 Meq PO DAILY Lasix (Furosemide) 80 Mg Tablet 80 Mg PO DAILY Reported Zolpidem Tartrate 10 Mg Tablet 10 Mg PO HS PRN Centrum Silver Ultra Men's Tab (Multivit-Min/FA/Lycopene/Lut) 1 Each Tablet 1 Tab PO DAILY Glimepiride 4 Mg Tablet 4 Mg PO BID Plavix (Clopidogrel Bisulfate) 75 Mg Tablet 75 Mg PO DAILY Aspirin 81 Mg Tab.chew 81 Mg PO DAILY Metoprolol Succinate 100 Mg Tab.er.24h 100 Mg PO DAILY Lipitor (Atorvastatin Calcium) 40 Mg Tablet 40 Mg PO HS Instructions to patient/family Please see electonic discharge instructions given to patient. Clinical Quality Measures DVT/VTE Risk/Contraindication: Risk Factor Score Per Nursin RFS Level Per Nursing on Admit: 4+=Very High NICHOLAS GLOVER DO Mar 05, 2017 11:35
[2017-03-05 12:05] VITALS: BP 129/83
[2017-03-05] MEDS ORDERED: FUROSEMIDE 40 MG/4 ML INJ (LASIX) IVP SCH (17:00)
[2017-03-06] MEDS ORDERED: METOLAZONE 2.5 MG (ZAROXOLYN) TAB PO SCH (08:30)
[2017-03-06] MEDS ORDERED: FUROSEMIDE 40 MG (LASIX) TAB PO SCH (09:00)
[2017-03-06] MEDS ORDERED: TROUGH ORDER-PHARMACY XX NR (15:00)
== END 2017-03-05 12:05 | disposition home or self-care (01) | DRG 190 ==
LOC: EDUNIT# 12:26 → ER 12:29 → ICU 14:00
PROVIDERS: ADMIT Internal Medicine; ATTEND Internal Medicine
DX: J44.0 Chronic obstructive pulmonary disease with (acute) lower respiratory infection (principal); J18.9 Pneumonia, unspecified organism; I13.0 Hypertensive heart and chronic kidney disease with heart failure and stage 1 through stage 4 chronic kidney disease, or unspecified chronic kidney disease; I50.23 Acute on chronic systolic (congestive) heart failure; J90 Pleural effusion, not elsewhere classified; E11.21 Type 2 diabetes mellitus with diabetic nephropathy; E11.22 Type 2 diabetes mellitus with diabetic chronic kidney disease; N18.3 Chronic kidney disease, stage 3 (moderate); E11.40 Type 2 diabetes mellitus with diabetic neuropathy, unspecified; I25.10 Atherosclerotic heart disease of native coronary artery without angina pectoris; I25.5 Ischemic cardiomyopathy; I25.2 Old myocardial infarction; I08.1 Rheumatic disorders of both mitral and tricuspid valves; G47.00 Insomnia, unspecified; E78.00 Pure hypercholesterolemia, unspecified; M54.9 Dorsalgia, unspecified; F32.9 Major depressive disorder, single episode, unspecified; M10.9 Gout, unspecified; Z95.5 Presence of coronary angioplasty implant and graft; Z79.84 Long term (current) use of oral hypoglycemic drugs; Z87.891 Personal history of nicotine dependence; Z91.19 Patient's noncompliance with other medical treatment and regimen
CPT/HCPCS: 36415; 71010; 71020; 71250; 80048; 80053; 82550; 82553; 82805; 82962; 83735; 83880; 84443; 84484; 85025; 85379; 85610; 85730; 87040; 87070; 87077; 87186; 87205; 93005; 93041; 94640; 94761

== ENCOUNTER → 2017-03-08 | Outpatient (CLI) | payer MEDICARE ==
[~2017-03-08] MED LIST changes: +CEFD300C3 PO; +FURO80TA83 PO; +METO2.5T PO; +MULT-850 PO; +POTA-51 PO; +ZOLP10TA5 PO
== END ==
LOC: CARD 14:23
PROVIDERS: ATTEND Internal Medicine Cardiovascular Disease
DX: I25.10 Atherosclerotic heart disease of native coronary artery without angina pectoris (principal); I25.5 Ischemic cardiomyopathy; E11.22 Type 2 diabetes mellitus with diabetic chronic kidney disease; N18.3 Chronic kidney disease, stage 3 (moderate); F51.02 Adjustment insomnia
CPT/HCPCS: 93306

== ENCOUNTER → 2017-03-31 | Outpatient (CLI) | payer MEDICARE ==
--- NOTE | 2017-03-31 18:41 | Diagnostic Imaging Report ---
Clinical indication: Patient states he has pneumonia, pleural effusion, and shortness of breath and ischemic cardiomyopathy. Patient states he also has stents placed 5 weeks ago. Exam: Chest x-ray PA and lateral views. Comparison: Chest x-ray dated 03/04/2017. Findings: There is interval resolution of previously seen right pleural effusion and improved aeration of both lungs. There is no lung infiltrate. There is no pneumothorax. Cardiac silhouettes upper limits of normal size. Pulmonary vasculature is within normal limits. There are hypertrophic spurs seen throughout the thoracic spine. Impression: 1: There is no radiographic evidence of acute cardiopulmonary process. 2: Interval resolution of the right pleural effusion and right basilar infiltrate and/or atelectasis. 3: Upper limits of normal heart size. Dictated by: Dictated on workstation # [id number]
== END ==
LOC: RT 15:10
PROVIDERS: ATTEND Nurse Practitioner Family
DX: R06.00 Dyspnea, unspecified (principal); J90 Pleural effusion, not elsewhere classified; I25.5 Ischemic cardiomyopathy
CPT/HCPCS: 71020; 94060; 94726; 94729

== ENCOUNTER → 2017-05-31 | Outpatient (CLI) | payer MEDICARE | LOC: CARD 14:12 | PROVIDERS: ATTEND Nurse Practitioner Family | DX: I25.10 Atherosclerotic heart disease of native coronary artery without angina pectoris (principal); I11.0 Hypertensive heart disease with heart failure; I50.22 Chronic systolic (congestive) heart failure; I25.5 Ischemic cardiomyopathy; I34.0 Nonrheumatic mitral (valve) insufficiency | CPT/HCPCS: 93306 ==

== ENCOUNTER → 2017-10-06 | Outpatient (CLI) | payer MEDICARE ==
[~2017-10-06] MED LIST changes: -METO-274 PO; +METO-395 PO
== END ==
LOC: LABNPT 15:00
PROVIDERS: ATTEND Orthopaedic Surgery
DX: M25.561 Pain in right knee (principal); M25.461 Effusion, right knee
CPT/HCPCS: 89060

== ENCOUNTER → 2017-11-22 | Outpatient (CLI) | payer MEDICARE ==
--- NOTE | 2017-11-22 11:19 | Diagnostic Imaging Report ---
PROCEDURE: MRI right joint lower extremity without contrast. TECHNIQUE: Multiplanar, multisequence MR imaging of the right knee was performed without contrast. COMPARISON: None available. INDICATION: Right knee pain and swelling for multiple months. FINDINGS: MENISCI Medial meniscus: Complex tearing of the posterior horn of the medial meniscus includes radial free edge tearing and horizontal undersurface cleavage tear. Lateral meniscus: Lateral meniscus is intact. LIGAMENTS ACL: Intact. PCL: Intact. MCL: Intact. LCL: The lateral collateral ligamentous complex is intact. EXTENSOR MECHANISM The extensor mechanism is intact. CARTILAGE Multifocal partial-thickness chondral loss involving all three compartments. No foci of full-thickness chondral loss. BONE Focal osseous erosion with circumscribed margins at the popliteus insertion on the lateral femoral condyle. There is moderate surrounding bone marrow edema in the lateral femoral condyle. Patchy subcortical and subchondral bone marrow edema is also present in the bilateral tibial plateaus. SOFT TISSUE Small knee joint effusion and moderate irregular synovial thickening is indicative of synovitis. No Adame's cyst. IMPRESSION: 1. Small knee joint effusion with extensive synovitis and erosive change at the popliteus insertion. These findings are nonspecific but frequently seen with gouty arthritis. Arthrodesis may be required to assess for crystals within the joint if patient does not have history of gout. 2. Complex tearing of the posterior horn and body of the lateral meniscus without displaced meniscal fragments. Dictated by: Dictated on workstation # [id number]
--- NOTE | 2017-11-22 11:22 | Diagnostic Imaging Report ---
Indication: Pre-MRI screening. Time of exam 10:12 AM 2 views of the skull were obtained. No metallic foreign bodies are identified to preclude performance of an MRI. Impression: No significant abnormality detected. Dictated by: Dictated on workstation # [id number]
== END ==
LOC: RAD 09:23
PROVIDERS: ATTEND Orthopaedic Surgery
DX: S83.281A Other tear of lateral meniscus, current injury, right knee, initial encounter (principal)
CPT/HCPCS: 70250; 73721

== ENCOUNTER 2018-05-08 11:20 | Inpatient (IN) | payer MEDICARE ==
[~2018-05-08] VITALS: Ht 180.3 cm; Wt 87.7 kg
[2018-05-08] VITALS (27 sets, daily range): BP systolic 103–132; BP diastolic 53–75
[~2018-05-08 11:20] MED LIST changes: -METF500T4 PO; +METF500T5 PO
[2018-05-08] MEDS ORDERED: NS IV 1000 ML 1,000 ML IV SCH (11:24)
[2018-05-08] MEDS ORDERED: PIPERACILLIN SODIUM/TAZOBACTAM 4.5 GM in NS (IVPB) 100 ML IV ONE (11:30)
--- NOTE | 2018-05-08 11:43 | ED Neurological Problem ---
General Stated Complaint: FELL,DIZZY, HURT LEG, O2 LOW Source: patient, family (girlfriend) Exam Limitations: no limitations History of Present Illness Date Seen by Provider: May 08, 2018 Time Seen by Provider: 11:15 Initial Comments Patient is a 67-year-old male who is brought into the emergency room and his girlfriend with reports of increasing generalized weakness, recent falls, right knee pain, and confusion. She reports that over the past few days he's became weaker and fell 2 days ago injuring his right knee. At 0630 this morning when she arrived to his home she found him on the floor beside his bed. He has had recent episodes of pneumonia and was admitted to the ICU in February of this year. PCP: Dr. Glover. He had to be assisted the car by nursing staff and myself. He is nonweightbearing at this point due to right knee pain and severe weakness. He is alert to person and place but does not know the day of the month. Timing/Duration: other (2-3 days) Associated Symptoms: confusion, fatigue; No loss of consciousness, No nausea/ vomiting, No numbness in legs/feet, No paresthesia, No slurred speech; trouble walking, weakness Allergies and Home Medications Allergies Coded Allergies: No Known Drug Allergies (Unverified , 01/25/17) Home Medications Allopurinol 300 Mg Tablet, 300 MG PO DAILY, (Reported) Amlodipine Besylate 10 Mg Tablet, 10 MG PO DAILY, (Reported) Aspirin 81 Mg Tab.chew, 81 MG PO DAILY, (Reported) Atorvastatin Calcium 40 Mg Tablet, 40 MG PO HS, (Reported) Clopidogrel Bisulfate 75 Mg Tablet, 75 MG PO DAILY, (Reported) Furosemide 40 Mg Tablet, 40 MG PO DAILY, (Reported) Glimepiride 4 Mg Tablet, 4 MG PO BID, (Reported) Metolazone 2.5 Mg Tablet, 2.5 MG PO Q48H, (Reported) Metoprolol Succinate 100 Mg Tab.er.24h, 100 MG PO DAILY, (Reported) Potassium Chloride 20 Meq Tab.er.prt, 20 MEQ PO DAILY, (Reported) Zolpidem Tartrate 10 Mg Tablet, 10 MG PO HS, (Reported) Patient Home Medication List Home Medication List Reviewed: Yes Review of Systems Constitutional: see HPI; No chills, No fever; weakness Musculoskeletal: joint pain (right knee), joint swelling, other (recent falls) Psychiatric/Neurological: Weakness, Other (contusion) Past Uuhemse-Xtikmz-Wldvbg Hx Past Med/Social Hx: Reviewed Nursing Past Med/Soc Hx Patient Social History Alcohol Beverage of Choice: Beer Type Used: Cigarettes Former Smoker, Quit: February 09, 1998 2nd Hand Smoke Exposure: No Recent Foreign Travel: No Contact w/Someone Who Travel: No Recent Hopitalizations: Yes (stents placed 2 weeks ago) Immunizations Up To Date PED Vaccines UTD: No Seasonal Allergies Seasonal Allergies: No Past Medical History Surgeries: Yes (Mass removed from neck 2009) Respiratory: No Pneumonia Currently Using CPAP: No Currently Using BIPAP: No Cardiac: Yes Coronary Artery Disease, High Cholesterol, Hypertension Neurological: Yes Neuropathy Genitourinary: No Renal Failure Gastrointestinal: No Musculoskeletal: Yes Chronic Back Pain, Gout Endocrine: Yes Diabetes, Non-Insulin dep HEENT: Yes Cataract Loss of Vision: Denies Hearing Impairment: Denies Cancer: No Psychosocial: No Integumentary: No Blood Disorders: No Family Medical History Reviewed Nursing Family Hx No Pertinent Family Hx Physical Exam Vital Signs Vital Signs - First Documented 05/08/18 11:30 O2 Flow Rate 2.00 Capillary Refill : Height, Weight, BMI Height: 5'10.50" Weight: 186lbs. 12.8oz. 84.873630xr; 26.2 BMI Method:Stated General Appearance: WD/WN, no apparent distress HEENT: PERRL/EOMI, normal ENT inspection, TMs normal Respiratory: chest non-tender, lungs clear, normal breath sounds, no respiratory distress, no accessory muscle use Cardiovascular: regular rate, rhythm, no edema, no gallop, no JVD, systolic murmur Gastrointestinal: normal bowel sounds, non tender, soft, no organomegaly, no pulsatile mass Genital/Rectal: normal rectal exam, heme positive stool (stool was negative for gross blood, fecal occult test was positive.) Neurologic/Psychiatric: no motor/sensory deficits, alert; No facial droop; motor weakness, other (disoriented to time and date) Crainal Nerves: normal hearing, PERRL Skin: warm/dry, pallor Lymphatic: no adenopathy Focused Exam Lactate Level 05/08/18 11:25: Lactic Acid Level 3.21*H Lactic Acid Level Laboratory Tests Test 05/08/18 11:25 Lactic Acid Level 3.21 MMOL/L (0.50-2.00) *H Progress/Results/Core Measures Results/Orders Lab Results Laboratory Tests Test 05/08/18 11:25 05/08/18 11:29 05/08/18 12:05 Range/Units White Blood Count 10.9 4.3-11.0 10^3/uL Red Blood Count 2.05 L 4.35-5.85 10^6/uL Hemoglobin 4.3 *L 13.3-17.7 G/DL Hematocrit 15 *L 40-54 % Mean Corpuscular Volume 73 L 80-99 FL Mean Corpuscular Hemoglobin 21 L 25-34 PG Mean Corpuscular Hemoglobin Concent 29 L 32-36 G/DL Red Cell Distribution Width 16.3 H 10.0-14.5 % Platelet Count 305 130-400 10^3/uL Mean Platelet Volume 10.5 H 7.4-10.4 FL Neutrophils (%) (Auto) 74 42-75 % Lymphocytes (%) (Auto) 7 L 12-44 % Monocytes (%) (Auto) 19 H 0-12 % Eosinophils (%) (Auto) 0 0-10 % Basophils (%) (Auto) 0 0-10 % Neutrophils # (Auto) 8.1 H 1.8-7.8 X 10^3 Lymphocytes # (Auto) 0.7 L 1.0-4.0 X 10^3 Monocytes # (Auto) 2.1 H 0.0-1.0 X 10^3 Eosinophils # (Auto) 0.0 0.0-0.3 10^3/uL Basophils # (Auto) 0.0 0.0-0.1 10^3/uL Neutrophils % (Manual) 86 % Lymphocytes % (Manual) 7 % Monocytes % (Manual) 7 % Polychromasia MODERATE Hypochromasia MARKED Anisocytosis MODERATE Microcytosis MODERATE Macrocytosis MODERATE Stomatocytes MODERATE Elliptocytes MODERATE Prothrombin Time 15.3 H 12.2-14.7 SEC INR Comment 1.2 0.8-1.4 Activated Partial Thromboplast Time 33 24-35 SEC Sodium Level 135 135-145 MMOL/L Potassium Level 3.0 L 3.6-5.0 MMOL/L Chloride Level 98 98-107 MMOL/L Carbon Dioxide Level 20 L 21-32 MMOL/L Anion Gap 17 H 5-14 MMOL/L Blood Urea Nitrogen 66 H 7-18 MG/DL Creatinine 2.49 H 0.60-1.30 MG/DL Estimat Glomerular Filtration Rate 26 BUN/Creatinine Ratio 27 Glucose Level 312 H 70-105 MG/DL Lactic Acid Level 3.21 *H 0.50-2.00 MMOL/L Uric Acid 8.7 H 2.6-7.2 MG/DL Calcium Level 9.1 8.5-10.1 MG/DL Total Bilirubin 0.6 0.1-1.0 MG/DL Aspartate Amino Transf (AST/SGOT) 212 H 5-34 U/L Alanine Aminotransferase (ALT/SGPT) 209 H 0-55 U/L Alkaline Phosphatase 84 40-136 U/L Troponin I 0.50 *H <0.30 NG/ML B-Type Natriuretic Peptide 942.9 H <100.0 PG/ML Total Protein 6.7 6.4-8.2 GM/DL Albumin 4.1 3.2-4.5 GM/DL Glucometer 349 H 70-110 MG/DL Urine Color YELLOW Urine Clarity CLEAR Urine pH 5 5-9 Urine Specific [place] 1.015 L 1.016-1.022 Urine Protein 1+ H NEGATIVE Urine Glucose (UA) NEGATIVE NEGATIVE Urine Ketones 1+ H NEGATIVE Urine Nitrite NEGATIVE NEGATIVE Urine Bilirubin NEGATIVE NEGATIVE Urine Urobilinogen NORMAL NORMAL MG/DL Urine Leukocyte Esterase NEGATIVE NEGATIVE Urine RBC (Auto) NEGATIVE NEGATIVE Urine RBC RARE /HPF Urine WBC NONE /HPF Urine Crystals PRESENT H /LPF Urine Amorphous Sediment RARE OLGA URATES H /LPF Urine Bacteria NEGATIVE /HPF Urine Casts NONE /LPF Urine Mucus NEGATIVE /LPF Urine Culture Indicated NO Micro Results Microbiology 05/08/18 Blood Culture - Preliminary, Resulted No growth 05/08/18 Blood Culture - Preliminary, Resulted No growth 05/08/18 Urine Culture - Final, Complete NO GROWTH My Orders Orders - SALLY HUDSON Hip, Right, 2 Views (05/08/18 11:29) Vital Signs/I&O 05/08/18 05/08/18 05/08/18 05/08/18 11:20 11:20 11:30 12:59 Temp 98.6 98.6 98.8 Pulse 105 105 98 Resp 12 12 22 B/P (MAP) 109/65 (80) 109/65 (80) 110/69 Pulse Ox 100 100 100 100 O2 Delivery Room Air Room Air Nasal Cannula Nasal Cannula O2 Flow Rate 2.00 2.00 05/08/18 05/08/18 13:12 13:20 Temp 98.7 98.9 Pulse 98 97 Resp 15 15 B/P (MAP) 126/62 103/54 Pulse Ox 100 100 O2 Delivery Nasal Cannula Nasal Cannula O2 Flow Rate 2.00 2.00 05/08/18 23:59 Intake Total 1100 ml Balance 1100 ml Progress Progress Note : Time: 12:39 Progress Note I spoke to Dr. Vaca at this time. He agrees that the elevated lactic acid and the elevated troponin is due to sever anemia and he recommends crossmatch and transfusing 4 units. There is no obvious infection at this time. Cultures were drawn. No antibiotics will be started at this time. I believe the troponin is due to demand ischemia secondary to anemia. The first unit of blood was started in the emergency room prior to transferring the patient to the ICU. I have ordered lasix to be given in between the first and second unit of blood due to the patients cardiac history and elevated BNP. Cardiology and Surgery will be consulted on arrival to the floor. EKG : EKG Time: 11:31 Rate: 105 Rhythm: S.Tach Intervals: Normal ECG Impression: 1st Degree AV Block Comment EKG reviewed by Dr. Montelongo Diagnostic Imaging Diagonstic Imaging: Xray, CT Plain Films/CT/US/NM/MRI: chest, hip, knee, head Comments NAME: JENNI EDGE [facility] REC#: [id number] PHYSICIAN: DAVEY MONTELONGO MD CC: MAXIMILIAN VASQUEZ MD; DAVEY MONTELONGO Page 2 of 2 RADIOLOGY REPORT VIA [place] CC: MAXIMILIAN VASQUEZ MD; DAVEY MONTELONGO Page 1 of 1 [id number] PT STATUS: REG ER : 1950 PHYSICIAN: DAVEY MONTELONGO MD ADMIT DATE: 05/08/18/ER Signed Date of Exam: 05/08/18 CT HEAD/CERVICAL SPINE WO PROCEDURE: CT head and CT cervical spine without contrast. TECHNIQUE: Multiple contiguous axial images were obtained through the brain and cervical spine without the use of intravenous contrast. Sagittal and coronal reformations through the cervical spine were then performed. INDICATION: Fall. The ventricles are normal in size, shape and position. There is no acute parenchymal hemorrhage, edema or mass. There is no extra-axial mass or hemorrhage. No skull fracture is seen. There is normal height and alignment of the cervical vertebral bodies. There are advanced degenerative changes with fusion of the large anterior osteophytes which are seen from C3-C6. There is some foraminal narrowing at these levels but no significant central canal encroachment is seen. There is no fracture or other acute abnormality. IMPRESSION: CT of the head shows no acute abnormality. CT of the cervical spine shows degenerative changes with no acute abnormality. Dictated by: Dictated on workstation # [id number] Dict: 05/08/18 1228 Trans: 05/08/18 1252 Interpreted by: MAXIMILIAN VASQUEZ MD Electronically signed by: MAXIMILIAN VASQUEZ MD 05/08/18 1252 NAME: JENNI EDGE [facility] REC#: [id number] PHYSICIAN: DAVEY MONTELONGO MD CC: MAXIMILIAN VASQUEZ MD; DAVEY MONTELONGO Page 1 of 1 RADIOLOGY REPORT VIA [place] CC: MAXIMILIAN VASQUEZ MD; DAVEY MONTELONGO Page 1 of 1 RADIOLOGY REPORT NAME: JENNI EDGE [facility] REC#: [id number] PT STATUS: REG ER : 1950 PHYSICIAN: DAVEY MONTELONGO MD ADMIT DATE: 05/08/18/ER Signed Date of Exam: 05/08/18 CHEST 1 VIEW, AP/PA ONLY INDICATION: Two-day status post fall A single view of the chest shows the heart to be upper normal. The vascularity is normal. The lungs are clear. There is no effusion or pneumothorax. There is no acute bony abnormality. IMPRESSION: No acute abnormality is seen with no change from 03/31/2017. Dictated by: Dictated on workstation # [id number] Dict: 05/08/18 1243 Trans: 05/08/18 1252 Interpreted by: MAXIMILIAN VASQUEZ MD Electronically signed by: MAXIMILIAN VASQUEZ MD 05/08/18 1252 NAME: JENNI EDGE [facility] REC#: [id number] PHYSICIAN: DAVEY MONTELONGO MD CC: MAXIMILIAN VASQUEZ MD; DAVEY MONTELONGO Page 1 of 1 RADIOLOGY REPORT VIA [place] CC: MAXIMILIAN VASQUEZ MD; DAVEY MONTELONGO Page 1 of 1 RADIOLOGY REPORT NAME: JENNI EDGE [facility] REC#: [id number] PT STATUS: REG ER : 1950 PHYSICIAN: DAVEY MONTELONGO MD ADMIT DATE: 05/08/18/ER Signed Date of Exam: 05/08/18 KNEE, RIGHT, 3 VIEWS Indication: Two-day status post fall. Right knee pain. Unable to bear weight. Four views of the right knee show no fracture, dislocation or other acute bony abnormality. There may be a small effusion. Impression: Effusion. No fracture. Dictated by: Dictated on workstation # [id number] Dict: 05/08/18 1242 Trans: 05/08/18 1257 Interpreted by: MAXIMILIAN AVSQUEZ MD Electronically signed by: MAXIMILIAN VASQUEZ MD 05/08/18 1257 [facility] [id number] PT STATUS: REG ER : 1950 PHYSICIAN: SALLY HUDSON ADMIT DATE: 05/08/18/ER Signed Date of Exam: 05/08/18 HIP, RIGHT, 2 VIEWS INDICATION: Two-day status post fall. Right hip pain Two views of the right hip show no fracture, dislocation or other acute abnormality. IMPRESSION: No acute abnormality is seen. Dictated by: Dictated on workstation # [id number] Dict: 05/08/18 1244 Trans: 05/08/18 1252 Interpreted by: MAXIMILIAN VASQUEZ MD Electronically signed by: MAXIMILIAN VASQUEZ MD 05/08/18 1252 Departure Communication (Admissions) Time/Spoke to Admitting Phy: 12:[address] Vaca at this time he agrees with plans for admission and to consult Dr. Maharaj and Dr. Gallardo when the patient arrives to the floor. Time/Spoke to Consulting Phy: 13:[address] Maharaj at this time. He states that he will evaluate the patient once he is stable and has had blood replacement. Impression Primary Impression: Anemia Additional Impression: GI bleed Qualified Codes: K92.2 - Gastrointestinal hemorrhage, unspecified Disposition: ADMITTED INPATIENT Condition: Stable/Unchanged Admissions Decision to Admit Reason: Admit from ER (General) Decision to Admit/Date: May 08, 2018 Time/Decision to Admit Time: 12:50 Departure-Patient Inst. Referrals: NICHOLAS GLOVER DO (PCP/Family) Primary Care Physician SALLY HUDSON May 08, 2018 11:43
[2018-05-08 11:46] LABS: BASOPHILS % (AUTO) 0 % (0-10); EOSINOPHILS % (AUTO) 0 % (0-10); LYMPHOCYTES # (AUTO) 0.7 X 10^3 (1.0-4.0); LYMPHOCYTES % (AUTO) 7 % (12-44); MEAN CORPUSCULAR HEMOGLOBIN 21 PG (25-34); MEAN CORPUSCULAR HGB CONC 29 G/DL (32-36); MEAN CORPUSCULAR VOLUME 73 FL (80-99); MEAN PLATELET VOLUME 10.5 FL (7.4-10.4); MONOCYTES # (AUTO) 2.1 X 10^3 (0.0-1.0); MONOCYTES % (AUTO) 19 % (0-12); NEUTROPHILS # (AUTO) 8.1 X 10^3 (1.8-7.8); NEUTROPHILS % (AUTO) 74 % (42-75); PLATELET COUNT 305 10^3/uL (130-400); RED BLOOD COUNT 2.05 10^6/uL (4.35-5.85); RED CELL DISTRIBUTION WIDTH 16.3 % (10.0-14.5); WHITE BLOOD COUNT 10.9 10^3/uL (4.3-11.0)
[2018-05-08 11:48] LABS: HEMOGLOBIN 4.3 G/DL (13.3-17.7)
[2018-05-08 11:49] LABS: HEMATOCRIT 15 % (40-54)
[2018-05-08] MEDS ORDERED: NS IV 500 ML 500 ML IV SCH ×2 (11:49→14:15)
[2018-05-08 11:56] LABS: INR 1.2 (0.8-1.4); PROTHROMBIN TIME PATIENT 15.3 SEC (12.2-14.7)
[2018-05-08] MEDS ORDERED: PANTOPRAZOLE 40 MG/10 ML (PROTONIX) VIAL IV ONE (12:00)
[2018-05-08] MEDS ORDERED: PANTOPRAZOLE INJECTION 200 MG in D5W 100 ML IVPB 50 ML IV SCH (12:00)
[2018-05-08 12:06] LABS: ALBUMIN 4.1 GM/DL (3.2-4.5); BILIRUBIN,TOTAL 0.6 MG/DL (0.1-1.0); CALCIUM 9.1 MG/DL (8.5-10.1); CREATININE SERUM 2.49 MG/DL (0.60-1.30); TOTAL PROTEIN 6.7 GM/DL (6.4-8.2); URIC ACID 8.7 MG/DL (2.6-7.2)
[2018-05-08 12:22] LABS: AMORPHOUS SEDIMENT,UR RARE AMOR URATES /LPF; BACTERIA,URINE NEGATIVE /HPF; BILIRUBIN,URINE NEGATIVE (NEGATIVE); CLARITY,URINE CLEAR; COLOR,URINE YELLOW; GLUCOSE, URINE (UA) NEGATIVE (NEGATIVE); KETONES,URINE 1+ (NEGATIVE); LEUKOCYTE ESTERASE ,URINE NEGATIVE (NEGATIVE); NITRITE,URINE NEGATIVE (NEGATIVE); PH,URINE 5 (5-9); PROTEIN,URINE 1+ (NEGATIVE); RBC,URINE RARE /HPF; UROBILINOGEN,URINE NORMAL (NORMAL)
--- NOTE | 2018-05-08 12:32 | Diagnostic Imaging Report ---
PROCEDURE: CT head and CT cervical spine without contrast. TECHNIQUE: Multiple contiguous axial images were obtained through the brain and cervical spine without the use of intravenous contrast. Sagittal and coronal reformations through the cervical spine were then performed. INDICATION: Fall. The ventricles are normal in size, shape and position. There is no acute parenchymal hemorrhage, edema or mass. There is no extra-axial mass or hemorrhage. No skull fracture is seen. There is normal height and alignment of the cervical vertebral bodies. There are advanced degenerative changes with fusion of the large anterior osteophytes which are seen from C3-C6. There is some foraminal narrowing at these levels but no significant central canal encroachment is seen. There is no fracture or other acute abnormality. IMPRESSION: CT of the head shows no acute abnormality. CT of the cervical spine shows degenerative changes with no acute abnormality. Dictated by: Dictated on workstation # [id number]
--- NOTE | 2018-05-08 12:47 | Diagnostic Imaging Report ---
INDICATION: Two-day status post fall A single view of the chest shows the heart to be upper normal. The vascularity is normal. The lungs are clear. There is no effusion or pneumothorax. There is no acute bony abnormality. IMPRESSION: No acute abnormality is seen with no change from 03/31/2017. Dictated by: Dictated on workstation # [id number]
--- NOTE | 2018-05-08 12:48 | Diagnostic Imaging Report ---
INDICATION: Two-day status post fall. Right hip pain Two views of the right hip show no fracture, dislocation or other acute abnormality. IMPRESSION: No acute abnormality is seen. Dictated by: Dictated on workstation # [id number]
--- NOTE | 2018-05-08 12:54 | Diagnostic Imaging Report ---
Indication: Two-day status post fall. Right knee pain. Unable to bear weight. Four views of the right knee show no fracture, dislocation or other acute bony abnormality. There may be a small effusion. Impression: Effusion. No fracture. Dictated by: Dictated on workstation # [id number]
[2018-05-08 12:55] LABS: ANISOCYTOSIS MODERATE; HYPOCHROMASIA MARKED; LYMPHOCYTES % (MANUAL) 7 %; MICROCYTOSIS MODERATE; MONOCYTES % (MANUAL) 7 %; NEUTROPHILS % (MANUAL) 86 %; POLYCHROMASIA MODERATE
[2018-05-08 12:56] LABS: ELLIPT/OVALOCYTES MODERATE; STOMATOCYTES MODERATE
[2018-05-08] MEDS ORDERED: fentaNYL INJECTION 100 MCG/2 ML AMP IVP ONE (13:45)
[2018-05-08] MEDS ORDERED: CATHETER FLUSH 10 ML SYR IV PRN (14:15)
[2018-05-08] MEDS ORDERED: FUROSEMIDE 40 MG/4 ML INJ (LASIX) IV NR (14:15)
[2018-05-08] MEDS: PANTOPRAZOLE DRIP 200 MG/D5W 50 ML IV SCH ×2 (15:10)
[2018-05-08] MEDS ORDERED: inSUlin ASPART (NovoLOG) 1 UNIT/0.01 ML (CHARGE PER UNIT) SC SCH (16:00)
[2018-05-08] MEDS ORDERED: morphine INJ 4 MG/ML 1 ML (VIAL/SYRINGE) ONE (18:15)
[2018-05-08] MEDS: morphine INJ 4 MG/ML 1 ML (VIAL/SYRINGE) IVP PRN (18:20)
[2018-05-08] MEDS ORDERED: inSUlin ASPART (NovoLOG) 1 UNIT/0.01 ML (CHARGE PER UNIT) ONE (18:40)
[2018-05-08] MEDS: inSUlin ASPART (NovoLOG) 1 UNIT/0.01 ML (CHARGE PER UNIT) SC SCH (18:47)
--- NOTE | 2018-05-08 20:31 | CONSULTATION REPORT ---
DATE OF SERVICE: 05/08/2018 ATTENDING PRIMARY CARE PHYSICIAN: Sue Fam DO HISTORY: The patient is a 67-year-old male, who presented to the Emergency Department with severe fatigue and generalized weakness as well as recent falls. He has also been confused. In the past two days, his symptoms have worsened. This morning his significant other found him on the floor beside his bed. He has also had a recent episode of pneumonia in 02/2018. This gentleman also has a history of medical noncompliance. The patient was found to be severely anemic with a hemoglobin of 8.3 and hematocrit of 15. He has a history of coronary artery disease as well as diabetes and neuropathy. It is unsure if he has had a history of gastroesophageal reflux disease or peptic ulcer disease. It is also unsure if he has had a colonoscopy done in the past. They do not recall any episodes of nausea and vomiting including hematemesis, no coffee ground emesis as well as no red blood per rectum nor any dark tarry stools. PAST MEDICAL HISTORY: Coronary artery disease, hypercholesterolemia, hypertension, peripheral neuropathy, renal failure, degenerative joint disease, gout, diabetes. PAST SURGICAL HISTORY: Excision of lipoma of posterior neck, multiple cardiac catheterizations and stent placement. ALLERGIES: No known drug allergies. MEDICATIONS: 1. Aspirin 81 mg daily. 2. Atorvastatin 40 mg daily. 3. Cefdinir 300 mg b.i.d. 4. Plavix 75 mg daily. 5. Furosemide 80 mg daily. 6. Glimepiride 4 mg b.i.d. 7. Metolazone 2.5 mg daily. 8. Metoprolol 100 mg daily. 9. Potassium 20 mEq daily. 10. Zolpidem 10 mg at bedtime. SOCIAL HISTORY: Previous smoker, quit in 1997. Does drink a few beers daily. FAMILY HISTORY: Noncontributory. REVIEW OF SYSTEMS: Well-nourished male currently weak; however, does answer the majority of questions appropriately. He is experiencing exertional shortness of breath. No cough or sputum production. No nausea or vomiting. No hematemesis or coffee ground emesis. Intermittent episodes of constipation. No red blood per rectum. No dark tarry stools. No fever or chills. No recent inadvertent weight loss. All other review of systems are negative. PHYSICAL EXAMINATION: VITAL SIGNS: Temperature 99.3, blood pressure 115/68, pulse 93, respirations 13, pulse ox 100% on room air. CHEST: A few scattered rales and rhonchi bilaterally. HEART: Regular, no murmurs. EXTREMITIES: No lower extremity edema, negative Homans sign. HEENT: No scleral icterus. NECK: No cervical lymphadenopathy. ABDOMEN: Soft, nontender, nondistended. SKIN: Warm, dry. LABORATORY DATA: WBC 10.9, hemoglobin 4.3, hematocrit 15, platelets 305. BUN 66, creatinine 2.49, glucose 312. Troponin 0.50. INR is 1.2. ASSESSMENT AND PLAN: A 67-year-old male with fatigue and generalized weakness, which has been progressive in the last few months. He has also had a recent episode of pneumonia. He is also found to be severely anemic and was receiving resuscitation with IV crystalloid as well as blood products. However, due to potential CHF, is receiving diuretics in between each unit of PRBC. Once resuscitated and stable, we will proceed with EGD and colonoscopy. Job ID: [id number] DocumentID: [id number] Dictated Date: 05/08/2018 18:07:16 [employer] Administrator Date: 05/08/2018 20:30:42 Dictated By: MARYLU DELGADO MD
[2018-05-08] MEDS: CATHETER FLUSH 10 ML SYR IV SCH (22:14)
[2018-05-09] VITALS (25 sets, daily range): BP systolic 110–142; BP diastolic 57–79
[2018-05-09] MEDS: inSUlin ASPART (NovoLOG) 1 UNIT/0.01 ML (CHARGE PER UNIT) SC SCH ×4 (00:16→17:01)
[2018-05-09 00:27] LABS: HEMOGLOBIN 8.3 G/DL (13.3-17.7)
[2018-05-09] MEDS: morphine INJ 4 MG/ML 1 ML (VIAL/SYRINGE) IVP PRN ×5 (00:27→20:56)
[2018-05-09 03:13] LABS: BASOPHILS # (AUTO) 0.1 10^3/uL (0.0-0.1); BASOPHILS % (AUTO) 0 % (0-10); EOSINOPHILS % (AUTO) 0 % (0-10); HEMATOCRIT 24 % (40-54); HEMOGLOBIN 7.7 G/DL (13.3-17.7); LYMPHOCYTES # (AUTO) 1.6 X 10^3 (1.0-4.0); LYMPHOCYTES % (AUTO) 10 % (12-44); MEAN CORPUSCULAR HEMOGLOBIN 23 PG (25-34); MEAN CORPUSCULAR HGB CONC 32 G/DL (32-36); MEAN CORPUSCULAR VOLUME 74 FL (80-99); MEAN PLATELET VOLUME 10.6 FL (7.4-10.4); MONOCYTES # (AUTO) 1.8 X 10^3 (0.0-1.0); MONOCYTES % (AUTO) 11 % (0-12); NEUTROPHILS # (AUTO) 12.5 X 10^3 (1.8-7.8); NEUTROPHILS % (AUTO) 78 % (42-75); PLATELET COUNT 271 10^3/uL (130-400); RED BLOOD COUNT 3.29 10^6/uL (4.35-5.85); RED CELL DISTRIBUTION WIDTH 17.8 % (10.0-14.5)
[2018-05-09 03:31] LABS: CALCIUM 9.6 MG/DL (8.5-10.1); CREATININE SERUM 2.17 MG/DL (0.60-1.30); MAGNESIUM 1.7 MG/DL (1.8-2.4)
[2018-05-09 03:45] LABS: POTASSIUM 2.4 MMOL/L (3.6-5.0)
[2018-05-09] MEDS: CATHETER FLUSH 10 ML SYR IV SCH ×3 (06:04→20:56)
[2018-05-09] MEDS: KCL 20 MEQ TAB (K-DUR) PO SCH (06:04)
[2018-05-09] MEDS: POTASSIUM CL 10MEQ/50ML IVPB 50 ML IV SCH ×7 (06:04→18:51)
[2018-05-09] MEDS: MAGNESIUM 1 GM/100 ML IVPB 100 ML IV SCH ×3 (06:05→10:03)
--- NOTE | 2018-05-09 07:57 | Diagnostic Imaging Report ---
EXAM: CHEST 1 VIEW, AP/PA ONLY INDICATION: Anemia. Altered mental status. GI bleed. COMPARISON: Chest radiograph, 05/08/2018. FINDINGS: Marked cardiomegaly, similar to the prior exam. Normal central pulmonary vascularity. No focal pulmonary opacity, pleural effusion or pneumothorax. No acute osseous findings. IMPRESSION: Stable exam including marked cardiomegaly. Dictated by: Dictated on workstation # [id number]
--- NOTE | 2018-05-09 08:09 | History & Physical-Hospitalist ---
History of Present Illness HPI/Chief Complaint Pt is a 67yoCM who presented to the ER due to dizziness. He is still confused to the details of his HPI. He states he is here because he hasn't been feeling well but has difficulty describing why. He knows it's been going on for a few weeks. He complains of fatigue and feeling like his "head is in water." His friend is at bedside who states he has not been eating or drinking well for the past few weeks and has hardly been able to work. He apparently has been very dizzy and ended up falling yesterday prompting him to seek evaluation in the ER. He was found to be very anemic at 4.3 with a positive FOBT. He was admitted to the ICU and transfused 4u PRBCs. Of note his troponin was found ot be elevated at 0.8 and then went to 4.85. Source: patient, family Exam Limitations: clinical condition Date Seen 05/09/18 Time Seen by Provider: 08:01 Attending Physician Zeke Vaca MD PCP Sue Fam DO Referring Physician Date of Admission May 08, 2018 at 13:21 Home Medications & Allergies Home Medications Reviewed patient Home Medication Reconciliation performed by pharmacy medication reconciliations field operations technician and/or nursing. Patients Allergies have been reviewed. Allergies Allergies Coded Allergies No Known Drug Allergies (Unverified01/25/17) Past Vftsose-Jfhfva-Nkiasf Hx Past Med/Social Hx: Reviewed Nursing Past Med/Soc Hx Patient Social History Alcohol Use: Denies Use Number of Drinks Today: AA Alcohol Beverage of Choice: Beer Recreational Drug Use: No Smoking Status: Former Smoker Former Smoker, Quit: February 09, 1998 Type Used: Cigarettes 2nd Hand Smoke Exposure: No Physical Abuse Screen: No Sexual Abuse: No Recent Foreign Travel: No Contact w/other who traveled: No Recent Hopitalizations: Yes Recent Infectious Disease Expo: No Immunizations Up To Date Pediatric: No Seasonal Allergies Seasonal Allergies: No Past Medical History Respiratory: COPD, Pneumonia Currently Using CPAP: No Currently Using BIPAP: No Cardiac: Coronary Artery Disease, High Cholesterol, Hypertension Neurological: Neuropathy Genitourinary: Renal Failure Musculoskeletal: Chronic Back Pain, Gout Endocrine: Diabetes, Non-Insulin dep HEENT: Cataract Loss of Vision: Denies Hearing Impairment: Denies History of Blood Disorders: No Family History Reviewed Nursing Family Hx No Pertinent Family Hx Review of Systems ROS-Unable to Obtain: limited due to confusion Constitutional: dizziness EENTM: no symptoms reported Respiratory: No dyspnea on exertion, No short of breath Cardiovascular: No chest pain, No palpitations Gastrointestinal: No abdominal pain, No constipation, No diarrhea, No hematemesis; loss of appetite; No melena, No nausea, No vomiting Genitourinary: no symptoms reported Musculoskeletal: no symptoms reported Skin: no symptoms reported Psychiatric/Neurological: No Symptoms Reported Physical Exam Physical Exam Vital Signs Vital Signs - First Documented 05/08/18 05/08/18 11:30 14:32 O2 Flow Rate 2.00 FiO2 28 Capillary Refill : Greater Than 3 Seconds Height, Weight, BMI Height: 5'11.00" Weight: 166lbs. 8.0oz. 75.801172ci; 23.9 BMI Method:Stated General Appearance: No Apparent Distress, WD/WN HEENT: PERRL/EOMI, Moist Mucous Membranes Neck: Non Tender, Supple Respiratory: Lungs Clear, No Respiratory Distress Cardiovascular: Regular Rate, Rhythm, No Murmur Gastrointestinal: Normal Bowel Sounds, Non Tender, Soft Extremity: Normal Capillary Refill, No Calf Tenderness Neurologic/Psychiatric: Alert, Oriented x3, Normal Mood/Affect Skin: Normal Color, Warm/Dry Results Results/Procedures Labs Laboratory Tests 05/08/18 11:25 05/09/18 00:15 05/09/18 03:00 Patient resulted labs reviewed. Imaging: Reviewed Imaging Report Assessment/Plan Admission Diagnosis GI bleed, NSTEMI Admission Status: Inpatient Order (span 2 midnights) Reason for Inpatient Admission: will need over 2 midnights to stabilize Diagnosis/Problems Diagnosis/Problems (1) GI bleed Status: Acute Assessment & Plan: FOBT + s/p 4 units pRBCs Will transfuse one more to keep >8 due to elevated troponin Surgery consulted- appreciate recs Discussed with Dr Maharaj- plan to scope on Qualifiers: GI bleed type/associated pathology: unspecified gastrointestinal hemorrhage type Qualified Codes: K92.2 - Gastrointestinal hemorrhage, unspecified (2) NSTEMI (non-ST elevated myocardial infarction) Status: Acute Assessment & Plan: troponin elevated overnight Likely demand ischemia from GI bleed Cardiology consulted, appreciate recs Discussed with Dr Gallardo- medical management as able now but cannot cath or given anticoagulation due to bleeding (3) Altered mental status Status: Acute Assessment & Plan: Improving but still confused at reason for presentation Qualifiers: Altered mental status type: unspecified Qualified Codes: R41.82 - Altered mental status, unspecified (4) CKD (chronic kidney disease) Status: Chronic Assessment & Plan: Baseline around 1.7 BARRY currently Continue IVF Qualifiers: Chronic kidney disease stage: stage 3 (moderate) Qualified Codes: N18.3 - Chronic kidney disease, stage 3 (moderate) (5) Diabetes Status: Chronic Assessment & Plan: SSI A Qualifiers: Diabetes mellitus type: type 2 Diabetes mellitus correction insulin use: without exterminator helper termite use Diabetes mellitus complication status: with kidney complications Diabetes mellitus complication detail: with chronic kidney disease Chronic kidney disease stage: stage 3 (moderate) Qualified Codes: E11.22 - Type 2 diabetes mellitus with diabetic chronic kidney disease; N18.3 - Chronic kidney disease, stage 3 (moderate) (6) Hypokalemia Status: Acute Assessment & Plan: Replaced this AM (7) Hypomagnesemia Status: Acute Assessment & Plan: Replaced this AM (8) Prophylactic measure Assessment & Plan: SCDs only Clinical Quality Measures DVT/VTE Risk/Contraindication: Risk Factor Score Per Nursin RFS Level Per Nursing on Admit: 2=Moderate MARY SANTA MD May 09, 2018 8:09 am
[2018-05-09] MEDS ORDERED: NS IV 500 ML 500 ML IV SCH (08:40)
[2018-05-09] MEDS: NS IV 1000 ML 1,000 ML IV SCH ×3 (09:31→22:51)
--- NOTE | 2018-05-09 09:57 | Consultation-Cardiology ---
HPI-Cardiology Cardiology Consultation Date of Consultation 05/09/18 Date of Admission Time Seen by Provider: 09:51 Indication: Acute myocardial infarction HPI 67 years old gentleman with history of coronary artery disease and stent to the LAD done in February 2017, hypertension. Patient was admitted with severe anemia he reported that he has been complaining of generalized weakness and fatigue and loss of energy for the past few weeks. Fell to the floor yesterday and came to the emergency room for evaluation where he was noted to have a hemoglobin of 4. He denied any full syncope. Denied any chest pain. Complaining of loss of energy and fatigue. Loss of appetite. He received 4 units of packed RBCs which improved his hemoglobin initially to 8 then went down to 7, feeling slightly better at this time. He was noted to have elevated troponin level. No active chest pain, he is in a regular rhythm with atrial fibrillation. Home Medications & Allergies Allergies: Coded Allergies: No Known Drug Allergies (Unverified , 01/25/17) Home Medication List Reviewed: Yes EZQ-Mmgdog-Xaibjs Hx Patient Social History Marital Status: cohabiting Alcohol Use: Denies Use Recreational Drug Use: No Smoking Status: Former Smoker Type Used: Cigarettes 2nd Hand Smoke Exposure: No Recent Foreign Travel: No Recent Infectious Disease Expo: No Recent Hopitalizations: Yes Physical Abuse Screen: No Sexual Abuse: No Past Medical History Past medical history as described below Family Medical History Significant Family History: No Pertinent Family Hx Family Medical Hx Noncontributory to his current condition Constitutional: no symptoms reported, see HPI, dizziness, malaise, weakness, weight loss EENTM: see HPI, no symptoms reported Respiratory: see HPI, dyspnea on exertion Cardiovascular: see HPI; No chest pain, No edema, No Hx of Intervention, No palpitations, No syncope, No vascular heart diseas, No other Gastrointestinal: no symptoms reported, see HPI Genitourinary: no symptoms reported, see HPI Musculoskeletal: no symptoms reported, see HPI Skin: see HPI Psychiatric/Neurological: No Symptoms Reported, See HPI Reviewed Test Results Reviewed Test Results Lab Laboratory Tests Test 05/08/18 11:25 05/08/18 11:29 05/08/18 12:05 05/08/18 13:28 Range/Units White Blood Count 10.9 4.3-11.0 10^3/uL Red Blood Count 2.05 L 4.35-5.85 10^6/uL Hemoglobin 4.3 *L 13.3-17.7 G/DL Hematocrit 15 *L 40-54 % Mean Corpuscular Volume 73 L 80-99 FL Mean Corpuscular Hemoglobin 21 L 25-34 PG Mean Corpuscular Hemoglobin Concent 29 L 32-36 G/DL Red Cell Distribution Width 16.3 H 10.0-14.5 % Platelet Count 305 130-400 10^3/uL Mean Platelet Volume 10.5 H 7.4-10.4 FL Neutrophils (%) (Auto) 74 42-75 % Lymphocytes (%) (Auto) 7 L 12-44 % Monocytes (%) (Auto) 19 H 0-12 % Eosinophils (%) (Auto) 0 0-10 % Basophils (%) (Auto) 0 0-10 % Neutrophils # (Auto) 8.1 H 1.8-7.8 X 10^3 Lymphocytes # (Auto) 0.7 L 1.0-4.0 X 10^3 Monocytes # (Auto) 2.1 H 0.0-1.0 X 10^3 Eosinophils # (Auto) 0.0 0.0-0.3 10^3/uL Basophils # (Auto) 0.0 0.0-0.1 10^3/uL Neutrophils % (Manual) 86 % Lymphocytes % (Manual) 7 % Monocytes % (Manual) 7 % Polychromasia MODERATE Hypochromasia MARKED Anisocytosis MODERATE Microcytosis MODERATE Macrocytosis MODERATE Stomatocytes MODERATE Elliptocytes MODERATE Prothrombin Time 15.3 H 12.2-14.7 SEC INR Comment 1.2 0.8-1.4 Activated Partial Thromboplast Time 33 24-35 SEC Sodium Level 135 135-145 MMOL/L Potassium Level 3.0 L 3.6-5.0 MMOL/L Chloride Level 98 98-107 MMOL/L Carbon Dioxide Level 20 L 21-32 MMOL/L Anion Gap 17 H 5-14 MMOL/L Blood Urea Nitrogen 66 H 7-18 MG/DL Creatinine 2.49 H 0.60-1.30 MG/DL Estimat Glomerular Filtration Rate 26 BUN/Creatinine Ratio 27 Glucose Level 312 H 70-105 MG/DL Lactic Acid Level 3.21 *H 0.50-2.00 MMOL/L Uric Acid 8.7 H 2.6-7.2 MG/DL Calcium Level 9.1 8.5-10.1 MG/DL Total Bilirubin 0.6 0.1-1.0 MG/DL Aspartate Amino Transf (AST/SGOT) 212 H 5-34 U/L Alanine Aminotransferase (ALT/SGPT) 209 H 0-55 U/L Alkaline Phosphatase 84 40-136 U/L Troponin I 0.50 *H <0.30 NG/ML B-Type Natriuretic Peptide 942.9 H <100.0 PG/ML Total Protein 6.7 6.4-8.2 GM/DL Albumin 4.1 3.2-4.5 GM/DL Glucometer 349 H 198 H 70-110 MG/DL Urine Color YELLOW Urine Clarity CLEAR Urine pH 5 5-9 Urine Specific Vader 1.015 L 1.016-1.022 Urine Protein 1+ H NEGATIVE Urine Glucose (UA) NEGATIVE NEGATIVE Urine Ketones 1+ H NEGATIVE Urine Nitrite NEGATIVE NEGATIVE Urine Bilirubin NEGATIVE NEGATIVE Urine Urobilinogen NORMAL NORMAL MG/DL Urine Leukocyte Esterase NEGATIVE NEGATIVE Urine RBC (Auto) NEGATIVE NEGATIVE Urine RBC RARE /HPF Urine WBC NONE /HPF Urine Crystals PRESENT H /LPF Urine Amorphous Sediment RARE OLGA URATES H /LPF Urine Bacteria NEGATIVE /HPF Urine Casts NONE /LPF Urine Mucus NEGATIVE /LPF Urine Culture Indicated NO Test 05/08/18 13:42 05/09/18 00:15 05/09/18 00:16 05/09/18 03:00 Range/Units Lactic Acid Level 3.23 *H 1.06 0.50-2.00 MMOL/L Hemoglobin 8.3 #L 7.7 L 13.3-17.7 G/DL Hematocrit 26 L 24 L 40-54 % Glucometer 84 70-110 MG/DL White Blood Count 16.0 H 4.3-11.0 10^3/uL Red Blood Count 3.29 L 4.35-5.85 10^6/uL Mean Corpuscular Volume 74 L 80-99 FL Mean Corpuscular Hemoglobin 23 L 25-34 PG Mean Corpuscular Hemoglobin Concent 32 32-36 G/DL Red Cell Distribution Width 17.8 H 10.0-14.5 % Platelet Count 271 130-400 10^3/uL Mean Platelet Volume 10.6 H 7.4-10.4 FL Neutrophils (%) (Auto) 78 H 42-75 % Lymphocytes (%) (Auto) 10 L 12-44 % Monocytes (%) (Auto) 11 0-12 % Eosinophils (%) (Auto) 0 0-10 % Basophils (%) (Auto) 0 0-10 % Neutrophils # (Auto) 12.5 H 1.8-7.8 X 10^3 Lymphocytes # (Auto) 1.6 1.0-4.0 X 10^3 Monocytes # (Auto) 1.8 H 0.0-1.0 X 10^3 Eosinophils # (Auto) 0.0 0.0-0.3 10^3/uL Basophils # (Auto) 0.1 0.0-0.1 10^3/uL Sodium Level 142 135-145 MMOL/L Potassium Level 2.4 *L 3.6-5.0 MMOL/L Chloride Level 104 98-107 MMOL/L Carbon Dioxide Level 23 21-32 MMOL/L Anion Gap 15 H 5-14 MMOL/L Blood Urea Nitrogen 57 H 7-18 MG/DL Creatinine 2.17 H 0.60-1.30 MG/DL Estimat Glomerular Filtration Rate 30 BUN/Creatinine Ratio 26 Glucose Level 67 L 70-105 MG/DL Calcium Level 9.6 8.5-10.1 MG/DL Phosphorus Level 4.0 2.3-4.7 MG/DL Magnesium Level 1.7 L 1.8-2.4 MG/DL Troponin I 4.85 *H <0.30 NG/ML Physical Exam Vital Signs Vital Signs - First Documented 05/08/18 05/08/18 11:30 14:32 O2 Flow Rate 2.00 FiO2 28 Capillary Refill : Greater Than 3 Seconds Height, Weight, BMI Height: 5'11.00" Weight: 166lbs. 8.0oz. 75.595423mb; 23.9 BMI Method:Stated General Appearance: WD/WN, Moderate Distress Eyes: Bilateral Eye Normal Inspection, Bilateral Eye PERRL, Bilateral Eye EOMI HEENT: PERRL/EOMI, TMs Normal, Normal ENT Inspection, Pharynx Normal Neck: Full Range of Motion, Normal Inspection, Non Tender, Supple, Carotid Bruit Respiratory: Chest Non Tender, Lungs Clear, Normal Breath Sounds, No Accessory Muscle Use, No Respiratory Distress Cardiovascular: No Edema, No Gallop, No JVD, Normal Peripheral Pulses, Systolic Murmur, Irregularly Irregular Gastrointestinal: Normal Bowel Sounds, No Organomegaly, No Pulsatile Mass, Non Tender, Soft Back: Normal Inspection, No CVA Tenderness, No Vertebral Tenderness Extremity: Normal Capillary Refill, Normal Inspection, Normal Range of Motion, Non Tender, No Calf Tenderness, No Pedal Edema Neurologic/Psychiatric: Alert, Oriented x3, No Motor/Sensory Deficits, Normal Mood/Affect Skin: Normal Color, Warm/Dry Lymphatic: No Adenopathy A/P-Cardiology Admission Diagnosis Anemia Non-ST elevation myocardial infarction Coronary artery disease Acute renal failure Assessment/Plan Anemia, hemoglobin 4 on admission. Probably GI loss, status post multiple blood transfusion and will require more blood transfusion until stabilized. Planning for endoscopy later this week. Managed by primary team. Non-ST elevation myocardial infarction, no active chest pain, troponin elevation is probably secondary to coronary artery disease and severe anemia. Cannot tolerate anticoagulation at this time. Continue conservative management and monitoring Coronary artery disease history of cardiac catheterization done by Dr. Vela in February 2017 showing subtotal occlusion of the LAD treated with overlapping stents resolute 2.2530 and 2.514 mm dilated to 2.75 and 2.9 mm. Mild to moderate disease in the right coronary artery and left circumflex artery with mildly elevated left ventricular end-diastolic pressure. Has been treated medically. Acute renal failure on top of chronic kidney disease stage III, continue with monitoring and hydration at this time. Hypokalemia, electrolyte imbalance. Being replaced. Congestive heart failure, chronic compensated left ventricular systolic dysfunction with ejection fraction 40 percent, mild MR and TR, pulmonary artery pressure of 40 mmHg, moderate concentric left ventricular hypertrophy last echocardiogram was done in January 2017, I will repeat 2-D echocardiogram. Diabetes mellitus, followed and managed by primary care physician Tobaccotammy, stopped smoking around the year 1999. Clinical Quality Measures DVT/VTE Risk/Contraindication: Risk Factor Score Per Nursin RFS Level Per Nursing on Admit: 2=Moderate ELY DENT MD May 09, 2018 09:57
--- NOTE | 2018-05-09 10:15 | Pulmonary Consultation ---
History of Present Illness History of Present Illness Date of Consultation 05/09/18 10:07 Time Seen by Provider: 10:07 Date of Admission Reason for Visit: Acute myocardial infarction History of Present Illness 67yo presented to ED secondary to s/p fall, dizziness, fatigue, decreased appetite, and confusion. PT was found to be severely anemic with hb of 4.3 with positive FOB s/p 4units of PRBC while in the ICU. Troponin also increased from 0.8 to 4.85. Cardiology is consulted. Pt was admitted to ICU for close observation and I am consulted for ICU management. Allergies and Home Medications Allergies Coded Allergies: No Known Drug Allergies (Unverified , 01/25/17) Home Medications Aspirin 81 Mg Tab.chew, 81 MG PO DAILY, (Reported) Atorvastatin Calcium 40 Mg Tablet, 40 MG PO HS, (Reported) Cefdinir 300 Mg Capsule, 300 MG PO BID Prescribed by: NICHOLAS GLOVER on 03/05/17 1123 Clopidogrel Bisulfate 75 Mg Tablet, 75 MG PO DAILY, (Reported) Furosemide 80 Mg Tablet, 80 MG PO DAILY Prescribed by: VIVIAN SILVA on 03/05/17 0839 Glimepiride 4 Mg Tablet, 4 MG PO BID, (Reported) Metolazone 2.5 Mg Tablet, 2.5 MG PO DAILY Prescribed by: VIVIAN SILVA on 03/05/17 0843 Metoprolol Succinate 100 Mg Tab.er.24h, 100 MG PO DAILY, (Reported) Multivit-Min/FA/Lycopene/Lut 1 Each Tablet, 1 TAB PO DAILY, (Reported) Potassium Chloride 20 Meq Tablet.er, 20 MEQ PO DAILY Prescribed by: VIVIAN SILVA on 03/05/17 0839 Zolpidem Tartrate 10 Mg Tablet, 10 MG PO HS PRN for INSOMNIA, (Reported) Past Bgxplix-Hlkrcf-Yzqpgi Hx Past Med/Social Hx: Reviewed Nursing Past Med/Soc Hx Patient Social History Alcohol Use: Denies Use Number of Drinks Today: AA Alcohol Beverage of Choice: Beer Recreational Drug Use: No Smoking Status: Former Smoker Type Used: Cigarettes Former Smoker, Quit: February 09, 1998 2nd Hand Smoke Exposure: No Recent Foreign Travel: No Contact w/Someone Who Travel: No Recent Infectious Disease Expo: No Recent Hopitalizations: Yes Physical Abuse: No Sexual Abuse: No Immunizations Up To Date PED Vaccines UTD: No Seasonal Allergies Seasonal Allergies: No Past Medical History Surgeries: Yes (Mass removed from neck 2009) Respiratory: No Pneumonia Currently Using CPAP: No Currently Using BIPAP: No Cardiac: Yes Coronary Artery Disease, High Cholesterol, Hypertension Neurological: No Neuropathy Genitourinary: Yes Renal Failure Gastrointestinal: No Musculoskeletal: Yes Chronic Back Pain, Gout Endocrine: Yes Diabetes, Non-Insulin dep HEENT: Yes Cataract Loss of Vision: Denies Hearing Impairment: Denies Cancer: No Psychosocial: No Nursing Suicide Risk Score: 0 Integumentary: No Blood Disorders: No Family Medical History Reviewed Nursing Family Hx No Pertinent Family Hx Review of Systems Time Seen by Provider: 10:21 Sepsis Event Evaluation Height, Weight, BMI Height: 5'11.00" Weight: 166lbs. 8.0oz. 75.809605gt; 23.9 BMI Method:Stated Exam Exam Vital Signs Date Time Temp Pulse Resp B/P (MAP) Pulse Ox O2 Delivery O2 Flow Rate FiO2 05/09/18 08:45 100.0 Room Air 05/09/18 08:40 89 05/09/18 08:33 98 Room Air 05/09/18 07:00 101 05/09/18 06:00 92 16 128/73 (91) 94 Room Air 05/09/18 05:00 83 26 119/62 (81) 94 Room Air 05/09/18 04:00 99.4 05/09/18 04:00 100 Room Air 05/09/18 04:00 89 28 127/63 (84) 90 Room Air 05/09/18 03:00 79 15 111/57 (75) 93 Room Air 05/09/18 02:00 81 19 125/60 (81) 97 Room Air 05/09/18 01:00 85 05/09/18 01:00 85 27 117/65 (82) 100 Room Air 05/09/18 00:17 99.4 05/09/18 00:00 100 Room Air 05/09/18 00:00 86 26 125/68 (87) 96 Room Air 05/08/18 23:00 89 13 111/53 (72) 100 Room Air 05/08/18 22:00 89 17 129/75 (93) 100 Room Air 05/08/18 21:45 99.4 92 16 125/69 100 Room Air 05/08/18 21:00 90 15 125/69 (87) 100 Room Air 05/08/18 20:05 99.3 82 16 126/66 100 Room Air 05/08/18 20:00 100 Room Air 05/08/18 20:00 90 19 126/66 (86) 98 Room Air 05/08/18 19:46 99.5 90 18 132/68 100 Room Air 05/08/18 19:25 99.6 92 26 132/68 100 Room Air 05/08/18 19:00 93 05/08/18 19:00 93 26 130/69 (89) 100 Room Air 05/08/18 18:38 100 Room Air 05/08/18 18:00 91 17 121/67 (85) 100 Room Air 05/08/18 17:40 99.3 93 13 115/68 100 Room Air 05/08/18 17:21 99.6 94 25 114/53 100 05/08/18 17:08 99.5 93 18 125/64 100 05/08/18 17:00 93 20 125/64 (84) 100 Room Air 05/08/18 16:13 100 Room Air 05/08/18 16:00 88 18 112/57 (75) 100 Room Air 05/08/18 15:45 94 18 131/59 (83) 100 Room Air 05/08/18 15:30 96 18 124/65 (84) 100 Room Air 05/08/18 15:25 99.5 96 16 124/65 100 Room Air 05/08/18 15:15 95 15 125/65 (85) 100 Room Air 05/08/18 15:05 99.3 Room Air 05/08/18 15:02 99.3 95 15 116/56 99 05/08/18 15:00 96 15 116/56 (76) 99 Room Air 05/08/18 14:32 98 100 28 05/08/18 14:17 97 05/08/18 14:10 99.4 96 24 120/65 (83) 100 Room Air 05/08/18 14:00 100 Room Air 05/08/18 13:55 98.8 98 12 115/61 100 Nasal Cannula 2.00 05/08/18 13:20 98.9 97 15 103/54 100 Nasal Cannula 2.00 05/08/18 13:12 98.7 98 15 126/62 100 Nasal Cannula 2.00 05/08/18 12:59 98.8 98 22 110/69 100 Nasal Cannula 2.00 05/08/18 11:30 100 Nasal Cannula 2.00 05/08/18 11:20 98.6 105 12 109/65 (80) 100 Room Air 05/08/18 11:20 98.6 105 12 109/65 (80) 100 Room Air I & O 05/09/18 07:00 Intake Total 1100 ml Output Total 2975 ml Balance -1875 ml Height & Weight Height: 5'11.00" Weight: 166lbs. 8.0oz. 75.082083hu; 23.9 BMI Method:Stated General Appearance: WD/WN, Moderate Distress HEENT: PERRL/EOMI, TMs Normal, Normal ENT Inspection, Pharynx Normal Neck: Full Range of Motion, Normal Inspection, Non Tender, Supple, Carotid Bruit Respiratory: Chest Non Tender, Lungs Clear, Normal Breath Sounds, No Accessory Muscle Use, No Respiratory Distress Cardiovascular: No Edema, No Gallop, No JVD, Normal Peripheral Pulses, Systolic Murmur, Irregularly Irregular Capillary Refill: Greater Than 3 Seconds Gastrointestinal: normal bowel sounds, non tender, soft, no organomegaly, no pulsatile mass Extremity: Normal Capillary Refill, Normal Inspection, Normal Range of Motion, Non Tender, No Calf Tenderness, No Pedal Edema Neurologic/Psychiatric: Alert, Oriented x3, No Motor/Sensory Deficits, Normal Mood/Affect Skin: Normal Color, Warm/Dry Lymphatic: No Adenopathy Results Lab Laboratory Tests 05/08/18 11:25 05/09/18 00:15 05/09/18 03:00 Assessment/Plan Assessment/Plan Severe Anemia with positive FOB s/p 4 units of PRBC -Protonix gtt -surgery is planning on EGD Wed -monitor Leukocyotis, mild fever -Possibly secondary to transfusion -guthrie cultures pending NSTEMI without CP s/p fall Acute on chronic renal failure dehydration hx of CAD last cath stent to LAD 02/17 Hypokalemia , hypomag -replace and recheck CHF EF 40% -repeat echo is pending Diabetes mellitus Tobaccoism, stopped smoking around the year 1999. ESTEPHANIA MILAN DO May 09, 2018 10:15
[2018-05-09] MEDS ORDERED: ALLO300T2 PO (14:09)
[2018-05-09] MEDS ORDERED: FURO40TA4 PO (14:09)
[2018-05-09] MEDS ORDERED: POTA20TA15 PO (14:09)
[2018-05-09] MEDS ORDERED: METO2.5T PO (14:09)
[2018-05-09] MEDS ORDERED: AMLO10TA2 PO (14:11)
[2018-05-09] MEDS: PANTOPRAZOLE DRIP 200 MG/D5W 50 ML IV SCH ×2 (14:22)
--- NOTE | 2018-05-09 15:23 | Physical Therapy Evaluation ---
PT Evaluation-General Medical Diagnosis Admission Date May 08, 2018 at 13:21 Medical Diagnosis: anemia/GI bleed Onset Date: May 08, 2018 Therapy Diagnosis Therapy Diagnosis: generalized weakness/debility Height/Weight Height (Feet): 5 Height (Inches): 11.00 Weight (Pounds): 166 Weight (Ounces): 8.0 Precautions Precautions/Isolations: Fall Prevention, Standard Precautions Weight Bear Status Right Lower Extremity: Right Weight Bearing/Tolerated Left Lower Extremity: Left Full Weight Bearing Referral Physician: Mary Reason for Referral: Evaluation/Treatment Medical History Pertinent Medical History: CAD, DM, Heart Failure, HTN, Neuropathy, Renal Insufficiency Current History ER secondary to dizziness/weakness/fall/critical Hgb 4.3 Reviewed History: Yes Social History Home: Single Level Current Living Status: Significant Other Prior/Core FIM Prior Level of Function Functional [place] Measure 0=Not Assessed/NA 4=Minimal Assistance 1=Total Assistance 5=Supervision or Setup 2=Maximal Assistance 6=Modified [place] 3=Moderate Assistance 7=Complete [place] Bed Mobility: 7 Transfers (B,C,W/C) (FIM): 7 Gait: 7 Locomotion: 7 PT Evaluation-Current Subjective Patient c/o 10/10 right knee pain. Noted edema distal femur. Pain Numeric Pain Scale: 10-Worst Possible Pain Location: Right Location Body Site: Knee Pain Description: Pressure, Acute, Burning, Sharp Objective Patient Orientation: Confused Problem Solving: Fair Attachments: Frost Catheter, IV ROM/Strength ROM Lower Extremities right LE limited due to pain and would not allow PT to test ROM left LE WFL Strength Lower Extremities right LE NT due to pain/left LE 3+/5 grossly Integumentary/Posture Integumentary refer to nursing notes Bladder Incontinence: Frost Cath Posture trunk flexed posture in stand. skilled verbal instruction to stand erect and ambulate Neuromuscular (Tone, Coordination, Reflexes) diminished coordination due to confusion, weakness, right knee pain, low Hgb, etc Sensory Vision: Functional Hearing: Functional Sensation Right Lower Extremit: Impaired Sensation Left Lower Extremity: Impaired Transfers Functional [place] Measure 0=Not Assessed/NA 4=Minimal Assistance 1=Total Assistance 5=Supervision or Setup 2=Maximal Assistance 6=Modified [place] 3=Moderate Assistance 7=Complete [place] Transfers (B, C, W/C) (FIM): 3 Scootin Rollin Supine to/from Sit: 3 Sit to/from Stand: 3 Gait Mode of Locomotion: Walk Anticipated Mode of Locomotion: Walk Gait (FIM): 1 Distance (FIM): 1=up to 49 ft Distance: 15' Gait Level of Assist: 3 Gait Assistive Device: FWW Comments/Gait Description skilled verbal instruction to stand erect and to weight bear through UE's with right LE stance patient also did demonstrate flexed left knee and trunk posture in stand, however, will correct. Balance Sitting Static: Normal Sitting Dynamic: Normal Standing Static: Poor Standing Dynamic: Poor Assessment/Needs 67 y.o. male, will benefit from skilled PT to address functional strength and mobility to improve current LOF and to safely return to home with family at maximum LOF. Patient is currently limited due to right knee pain/swelling and low Hgb. Rehab Potential: Fair Post Rehab Potential-Barriers: compliance PT Detention Goals Area Director Of Home Health Sales Goals PT Detention Goals Time Frame: May 18, 2018 Transfers (B,C,W/C) (FIM): 6 Gait (FIM): 6 Gait distance (FIM): 3=150 ft Gait Level of Assist: 6 Gait Assistive Device: FWW PT Plan Problem List Problem List: Activity Tolerance, Functional Strength, Safety, Balance, Gait, Transfer, Bed Mobility, ROM Treatment/Plan Treatment Plan: Continue Plan of Care Treatment Plan: Bed Mobility, Education, Functional Activity Orly, Functional Strength, Gait, Safety, Therapeutic Exercise, Transfers Treatment Duration: May 18, 2018 Frequency: 6 times per week Estimated Hrs Per Day: .5 hour per day Patient and/or Family Agrees t: Yes Safety Risks/Education Patient Education: Gait Training Teaching Recipient: Patient Teaching Methods: Demonstration, Discussion Response to Teaching: Reinforcement Needed Discharge Recommendations Therapy D/C Recommendations: Home w/ Family Support Time/GCodes Time In: 1440 Time Out: 1510 Total Billed Treatment Time: 30 Total Billed Treatment 1 visit EVModC 14 min FA 16 min MARTHA BEARD PT May 09, 2018 15:23
[2018-05-09 15:57] LABS: CALCIUM 9.5 MG/DL (8.5-10.1); CREATININE SERUM 2.28 MG/DL (0.60-1.30); MAGNESIUM 2.2 MG/DL (1.8-2.4); PHOSPHORUS 2.9 MG/DL (2.3-4.7); POTASSIUM 2.9 MMOL/L (3.6-5.0)
[2018-05-10] VITALS (24 sets, daily range): BP systolic 120–153; BP diastolic 73–101
[2018-05-10] MEDS: inSUlin ASPART (NovoLOG) 1 UNIT/0.01 ML (CHARGE PER UNIT) SC SCH ×4 (00:08→17:50)
[2018-05-10] MEDS: morphine INJ 4 MG/ML 1 ML (VIAL/SYRINGE) IVP PRN ×6 (00:36→21:39)
[2018-05-10 04:07] LABS: BASOPHILS % (AUTO) 0 % (0-10); EOSINOPHILS % (AUTO) 0 % (0-10); HEMATOCRIT 25 % (40-54); HEMOGLOBIN 7.9 G/DL (13.3-17.7); LYMPHOCYTES # (AUTO) 1.2 X 10^3 (1.0-4.0); LYMPHOCYTES % (AUTO) 8 % (12-44); MEAN CORPUSCULAR HEMOGLOBIN 24 PG (25-34); MEAN CORPUSCULAR HGB CONC 32 G/DL (32-36); MEAN CORPUSCULAR VOLUME 76 FL (80-99); MEAN PLATELET VOLUME 10.7 FL (7.4-10.4); MONOCYTES # (AUTO) 1.9 X 10^3 (0.0-1.0); MONOCYTES % (AUTO) 12 % (0-12); NEUTROPHILS # (AUTO) 12.5 X 10^3 (1.8-7.8); NEUTROPHILS % (AUTO) 80 % (42-75); PLATELET COUNT 214 10^3/uL (130-400); RED BLOOD COUNT 3.26 10^6/uL (4.35-5.85); WHITE BLOOD COUNT 15.7 10^3/uL (4.3-11.0)
[2018-05-10 04:38] LABS: CALCIUM 8.7 MG/DL (8.5-10.1); CREATININE SERUM 1.87 MG/DL (0.60-1.30); MAGNESIUM 2.1 MG/DL (1.8-2.4); PHOSPHORUS 2.3 MG/DL (2.3-4.7); POTASSIUM 2.8 MMOL/L (3.6-5.0)
[2018-05-10] MEDS: MAGNESIUM 1 GM/100 ML IVPB 100 ML IV SCH (05:19)
[2018-05-10] MEDS ORDERED: POTASSIUM CHLORIDE INJ 20 MEQ in NS IV 1000 ML 1,000 ML IV SCH (05:30)
--- NOTE | 2018-05-10 05:34 | Pulmonary Progress Note ---
Subjective Time Seen by Provider: 05:42 Subjective/Events-last exam Pt is on RA no SOB. Plan is for EGD/Colonoscopy tomorrow. Sepsis Event Evaluation Height, Weight, BMI Height: 5'11.00" Weight: 166lbs. 8.0oz. 75.107334an; 23.9 BMI Method:Stated Focused Exam Lactate Level 05/08/18 11:25: Lactic Acid Level 3.21*H 05/08/18 13:42: Lactic Acid Level 3.23*H 05/09/18 03:00: Lactic Acid Level 1.06 Exam Exam Vital Signs Date Time Temp Pulse Resp B/P (MAP) Pulse Ox O2 Delivery O2 Flow Rate FiO2 05/10/18 04:16 99.3 05/10/18 04:00 Room Air 05/10/18 00:00 98 16 135/73 (93) 94 Room Air 05/10/18 00:00 99.5 05/10/18 00:00 Room Air 05/09/18 23:00 99 16 124/70 (88) 92 Room Air 05/09/18 22:00 100 17 125/69 (87) 95 Room Air 05/09/18 21:00 101 20 134/71 (92) 95 Room Air 05/09/18 20:00 Room Air 05/09/18 20:00 98 13 128/76 (93) 99 Room Air 05/09/18 20:00 99.7 05/09/18 19:00 98 05/09/18 19:00 98 17 126/64 (84) 96 Room Air 05/09/18 18:00 99 14 122/67 (85) 95 Room Air 05/09/18 17:00 98 19 114/69 (84) 95 Room Air 05/09/18 16:00 99 11 94 Room Air 05/09/18 15:30 99.2 99 11 125/65 94 Room Air 05/09/18 14:00 97 19 123/66 (85) 96 Room Air 05/09/18 13:00 98 05/09/18 13:00 98 22 142/79 (100) 96 Room Air 05/09/18 12:15 99.8 93 25 126/73 93 Room Air 05/09/18 12:00 99.8 Room Air 05/09/18 12:00 Room Air 05/09/18 12:00 90 28 126/73 (90) 99 Room Air 05/09/18 11:58 99.4 87 18 128/68 96 Room Air 05/09/18 11:00 86 26 131/69 (89) 96 Room Air 05/09/18 10:00 101 27 116/59 (78) 94 Room Air 05/09/18 09:00 101 24 110/64 (79) 96 Room Air 05/09/18 08:45 100.0 Room Air 05/09/18 08:40 89 05/09/18 08:35 Room Air 05/09/18 08:33 98 Room Air 05/09/18 08:00 98 13 115/60 (78) 95 Room Air 05/09/18 07:00 101 05/09/18 07:00 95 24 133/59 (83) 96 Room Air 05/09/18 06:00 92 16 128/73 (91) 94 Room Air I & O 05/10/18 07:00 Intake Total 3050 ml Output Total 1350 ml Balance 1700 ml Height & Weight Height: 5'11.00" Weight: 166lbs. 8.0oz. 75.328037ey; 23.9 BMI Method:Stated General Appearance: WD/WN, Moderate Distress HEENT: PERRL/EOMI, TMs Normal, Normal ENT Inspection, Pharynx Normal Neck: Full Range of Motion, Normal Inspection, Non Tender, Supple, Carotid Bruit Respiratory: Chest Non Tender, Lungs Clear, Normal Breath Sounds, No Accessory Muscle Use, No Respiratory Distress Cardiovascular: No Edema, No Gallop, No JVD, Normal Peripheral Pulses, Systolic Murmur, Irregularly Irregular Capillary Refill: Greater Than 3 Seconds Gastrointestinal: normal bowel sounds, non tender, soft, no organomegaly, no pulsatile mass Extremity: Normal Capillary Refill, Normal Inspection, Normal Range of Motion, Non Tender, No Calf Tenderness, No Pedal Edema Neurologic/Psychiatric: Alert, Oriented x3, No Motor/Sensory Deficits, Normal Mood/Affect Skin: Normal Color, Warm/Dry Lymphatic: No Adenopathy Results Lab Laboratory Tests 05/08/18 11:25 05/09/18 00:15 05/09/18 03:00 05/09/18 15:29 05/10/18 03:15 Assessment/Plan Assessment/Plan Severe Anemia with positive FOB s/p 4 units of PRBC -Protonix gtt -surgery is planning on EGD Wed -monitor Leukocyotis, mild fever r/o infection -start Zosyn -guthrie cultures pending NSTEMI without CP s/p fall Acute on chronic renal failure dehydration hx of CAD last cath stent to LAD 02/17 Hypokalemia -- pt received a total of 100meq of K+ yesterday and did not improve K+ much -replace and recheck -Will give Kdur 60meq -Add 20meq of KCL to IVF at 100cc/hr -Kphos 15mmol -repeat chem at 1200 CHF EF 40% -repeat echo is pending -Monitor Diabetes mellitus Tobaccoism, stopped smoking around the year 1999. ESTEPHANIA MILAN DO May 10, 2018 05:33
[2018-05-10] MEDS ORDERED: PIPERACILLIN SODIUM/TAZOBACTAM 4.5 GM in D5W 100 ML IVPB 100 ML IV SCH (05:45)
[2018-05-10] MEDS ORDERED: POTASSIUM PHOSPHATE INJ 15 MM in NS (IVPB) 250 ML IV ONE (05:45)
[2018-05-10] MEDS: POTASSIUM CL 10MEQ/50ML IVPB 50 ML IV SCH ×6 (06:24→23:11)
[2018-05-10] MEDS: KCL 20 MEQ TAB (K-DUR) PO SCH (06:24)
[2018-05-10] MEDS: CATHETER FLUSH 10 ML SYR IV SCH ×3 (06:39→21:39)
--- NOTE | 2018-05-10 07:40 | Progress Note-Hospitalist ---
Subjective HPI/CC On Admission Date Seen by Provider: May 10, 2018 Time Seen by Provider: 07:35 Pt is a 67yoCM who presented to the ER due to dizziness. He is still confused to the details of his HPI. He states he is here because he hasn't been feeling well but has difficulty describing why. He knows it's been going on for a few weeks. He complains of fatigue and feeling like his "head is in water." His friend is at bedside who states he has not been eating or drinking well for the past few weeks and has hardly been able to work. He apparently has been very dizzy and ended up falling yesterday prompting him to seek evaluation in the ER. He was found to be very anemic at 4.3 with a positive FOBT. He was admitted to the ICU and transfused 4u PRBCs. Of note his troponin was found ot be elevated at 0.8 and then went to 4.85. Subjective/Events-last exam Pt reports feeling better last night but this morning not as well. He can not describe why he doesn't feel well though. Discussed bowel prep and will get bedside commode to assist him in toileting. Focused Exam Lactate Level 05/08/18 11:25: Lactic Acid Level 3.21*H 05/08/18 13:42: Lactic Acid Level 3.23*H 05/09/18 03:00: Lactic Acid Level 1.06 Objective Exam Vital Signs Vital Signs Date Time Temp Pulse Resp B/P (MAP) Pulse Ox O2 Delivery O2 Flow Rate FiO2 05/10/18 06:00 95 14 130/74 (92) 94 Room Air 05/10/18 04:16 99.3 05/08/18 14:32 28 05/08/18 13:55 2.00 Capillary Refill : Greater Than 3 Seconds General Appearance: No Apparent Distress, WD/WN Respiratory: Lungs Clear, No Respiratory Distress Cardiovascular: Regular Rate, Rhythm, No Murmur Gastrointestinal: Normal Bowel Sounds, Soft Neurologic/Psychiatric: Alert, Oriented x3 (but slowed mentation) Results/Procedures Lab Laboratory Tests 05/09/18 15:29 05/10/18 03:15 Patient resulted labs reviewed. Imaging: Reviewed Imaging Report Assessment/Plan Assessment and Plan Assess & Plan/Chief Complaint GI bleed Diagnosis/Problems Diagnosis/Problems (1) GI bleed Status: Acute Assessment & Plan: FOBT + s/p 5 units pRBCs Hemoglobin stable Surgery consulted- appreciate recs Discussed with Dr Maharaj- plan to scope on Qualifiers: GI bleed type/associated pathology: unspecified gastrointestinal hemorrhage type Qualified Codes: K92.2 - Gastrointestinal hemorrhage, unspecified (2) NSTEMI (non-ST elevated myocardial infarction) Status: Acute Assessment & Plan: troponin elevated but unable to cath Likely demand ischemia from GI bleed Cardiology consulted, appreciate recs Discussed with Dr Gallardo- medical management as able now but cannot cath or given anticoagulation due to bleeding and renal failure (3) Leukocytosis Assessment & Plan: Mild leukocytosis On Zosyn cultures NGTD (4) Altered mental status Status: Acute Assessment & Plan: Improving but still slowed mentation Will check ammonia Qualifiers: Altered mental status type: unspecified Qualified Codes: R41.82 - Altered mental status, unspecified (5) CKD (chronic kidney disease) Status: Chronic Assessment & Plan: Baseline around 1.7 nearly back to baseline Continue IVF Qualifiers: Chronic kidney disease stage: stage 3 (moderate) Qualified Codes: N18.3 - Chronic kidney disease, stage 3 (moderate) (6) Diabetes Status: Chronic Assessment & Plan: SSI A Qualifiers: Diabetes mellitus type: type 2 Diabetes mellitus prison insulin use: without supervisor intermediates use Diabetes mellitus complication status: with kidney complications Diabetes mellitus complication detail: with chronic kidney disease Chronic kidney disease stage: stage 3 (moderate) Qualified Codes: E11.22 - Type 2 diabetes mellitus with diabetic chronic kidney disease; N18.3 - Chronic kidney disease, stage 3 (moderate) (7) Hypokalemia Status: Acute Assessment & Plan: Remains very low despite aggressive replacement yesterday Replace in fluids and orally today recheck at 1200 (8) Hypomagnesemia Status: Acute Assessment & Plan: Replaced this AM (9) Prophylactic measure Assessment & Plan: SCDs only NS +20KCL at 100ml/hr Diet per Surgery Clinical Quality Measures DVT/VTE Risk/Contraindication: Risk Factor Score Per Nursin RFS Level Per Nursing on Admit: 2=Moderate MARY SANTA MD May 10, 2018 07:40
--- NOTE | 2018-05-10 07:47 | Cardiology Progress Note ---
Subjective Date Seen by Provider: May 10, 2018 Time Seen by Provider: 07:45 Subjective/Events-last exam Patient is in bed, complaining of fatigue and loss of energy. Denied any chest pain. Review of Systems General: No Chills, No Night Sweats; Fatigue, Malaise; No Appetite, No Other HEENT: No Head Aches, No Visual Changes, No Eye Pain, No Ear Pain, No Dysphasia , No Sinus Congestion, No Post Nasal Drip, No Sore Throat, No Other Pulmonary: No Dyspnea, No Cough, No Pleuritic Chest Pain, No Other Cardiovascular: No: Chest Pain, Palpitations, Orthopnea, Paroxysmal Noc. Dyspnea, Edema, Lt Headedness, Other Focused Exam Lactate Level 05/08/18 11:25: Lactic Acid Level 3.21*H 05/08/18 13:42: Lactic Acid Level 3.23*H 05/09/18 03:00: Lactic Acid Level 1.06 Objective-Cardiology Exam Last Set of Vital Signs Vital Signs 05/08/18 05/08/18 05/10/18 05/10/18 13:55 14:32 04:16 06:00 Temp 99.3 Pulse 95 Resp 14 B/P (MAP) 130/74 (92) Pulse Ox 94 O2 Delivery Room Air O2 Flow Rate 2.00 FiO2 28 Capillary Refill : Greater Than 3 Seconds I&O Intake and Output 05/10/18 00:00 Intake Total 3000 ml Output Total 1600 ml Balance 1400 ml Intake Oral 1500 ml IV Total 1500 ml Output Urine Total 1600 ml General: Alert, Oriented X3, Cooperative HEENT: Atraumatic, PERRLA Neck: Supple, No JVD, No Thyromegaly Lungs: Clear to Auscultation, Normal Air Movement Heart: Regular Rate, Normal S1, Normal S2, No Murmurs Abdomen: Normal Bowel Sounds, Soft, No Tenderness, No Hepatosplenomegaly, No Masses Extremities: No Clubbing, No Cyanosis, No Edema, Normal Pulses, No Tenderness/ Swelling Skin: No Rashes, No Breakdown, No Significant Lesion Neuro: Normal Gait, Normal Speech, Strength at 5/5 X4 Ext, Normal Tone, Sensation Intact Psych/Mental Status: Mental Status NL, Mood NL Results Lab Laboratory Tests 05/09/18 15:29 05/10/18 03:15 A/P-Cardiology Admission Diagnosis Anemia Non-ST elevation myocardial infarction Coronary artery disease Acute renal failure Assessment/Plan Severe Anemia, hemoglobin 4 on admission. Planning for endoscopy tomorrow, continue to monitor Non-ST elevation myocardial infarction, no active chest pain, troponin elevation is probably secondary to coronary artery disease and severe anemia. Cannot tolerate anticoagulation at this time. Continue conservative management and monitoring Coronary artery disease history of cardiac catheterization done by Dr. Vela in February 2017 showing subtotal occlusion of the LAD treated with overlapping stents resolute 2.2530 and 2.514 mm dilated to 2.75 and 2.9 mm. Mild to moderate disease in the right coronary artery and left circumflex artery with mildly elevated left ventricular end-diastolic pressure. Has been treated medically. Acute renal failure on top of chronic kidney disease stage III, continue with monitoring and hydration at this time. Hypokalemia, electrolyte imbalance, received multiple doses of potassium replacement, still receiving potassium, persistent hypokalemia. Continue to monitor Congestive heart failure, chronic compensated left ventricular systolic dysfunction with ejection fraction 40 percent, mild MR and TR, pulmonary artery pressure of 40 mmHg, moderate concentric left ventricular hypertrophy last echocardiogram was done in January 2017, I will repeat 2-D echocardiogram. Leukocytosis, elevated sedimentation rate. Blood cultures so far are negative. Patient has history of [place] spotted fever and has been treated twice in the past for it Diabetes mellitus, followed and managed by primary care physician Tobaccoism, stopped smoking around the year 1999. Clinical Quality Measures DVT/VTE Risk/Contraindication: Risk Factor Score Per Nursin RFS Level Per Nursing on Admit: 2=Moderate ELY DENT MD May 10, 2018 07:47
[2018-05-10] MEDS ORDERED: PIPERACILLIN/TAZO 4.5 GM/D5W 100 ML IV NR ×2 (08:30)
[2018-05-10] MEDS: NS W/KCL 20 MEQ/L 1,000 ML IV SCH ×3 (08:49→20:07)
[2018-05-10] MEDS ORDERED: KCL 10 MEQ TAB (MICRO K) PO ONE (09:00)
[2018-05-10 09:02] LABS: ALANINE AMINOTRANSFERASE 86 U/L (0-55); AMMONIA 23 UMOL/L (11-32)
--- NOTE | 2018-05-10 09:04 | Diagnostic Imaging Report ---
INDICATION: Anemia, GI bleed, altered mental status. COMPARISON: 05/09/2018. FINDINGS: Unchanged cardiomegaly. Bibasilar linear opacities are similar and likely represent atelectasis. No pleural effusion or pneumothorax. IMPRESSION: Unchanged cardiomegaly without evidence of acute cardiopulmonary process by portable radiography. Dictated by: Dictated on workstation # [id number]
--- NOTE | 2018-05-10 11:09 | Progress Note (SOAP) ---
Subjective Date Seen by Provider: May 10, 2018 Time Seen by Provider: 10:00 Subjective/Events-last exam doing better today. feels stronger and less weak. normal mentation. states has been under stress and has had issues with PUD in past. also has noticed some darker stools in past. Focused Exam Lactate Level 05/08/18 11:25: Lactic Acid Level 3.21*H 05/08/18 13:42: Lactic Acid Level 3.23*H 05/09/18 03:00: Lactic Acid Level 1.06 Objective Exam Vital Signs Date Time Temp Pulse Resp B/P (MAP) Pulse Ox O2 Delivery O2 Flow Rate FiO2 05/10/18 10:00 101 11 138/84 (102) 95 Room Air 05/10/18 09:04 100.8 05/10/18 09:03 96 Room Air 05/10/18 09:00 98 11 132/75 (94) 91 Room Air 05/10/18 08:15 Room Air 05/10/18 08:00 96 18 143/78 (99) 94 Room Air 05/10/18 07:00 99 05/10/18 07:00 98 20 146/75 (98) 93 Room Air 05/10/18 07:00 05/10/18 06:00 95 14 130/74 (92) 94 Room Air 05/10/18 05:00 97 17 139/74 (95) 94 Room Air 05/10/18 04:16 99.3 05/10/18 04:00 Room Air 05/10/18 04:00 97 17 136/76 (96) 92 Room Air 05/10/18 03:00 97 13 131/73 (92) 91 Room Air 05/10/18 02:00 95 20 131/73 (92) 93 Room Air 05/10/18 01:00 96 21 133/73 (93) 93 Room Air 05/10/18 01:00 96 05/10/18 00:00 98 16 135/73 (93) 94 Room Air 05/10/18 00:00 99.5 05/10/18 00:00 Room Air 05/09/18 23:00 99 16 124/70 (88) 92 Room Air 05/09/18 22:00 100 17 125/69 (87) 95 Room Air 05/09/18 21:00 101 20 134/71 (92) 95 Room Air 05/09/18 20:00 Room Air 05/09/18 20:00 98 13 128/76 (93) 99 Room Air 05/09/18 20:00 99.7 05/09/18 19:00 98 05/09/18 19:00 98 17 126/64 (84) 96 Room Air 05/09/18 18:00 99 14 122/67 (85) 95 Room Air 05/09/18 17:00 98 19 114/69 (84) 95 Room Air 05/09/18 16:00 99 11 94 Room Air 05/09/18 15:30 99.2 99 11 125/65 94 Room Air 05/09/18 14:00 97 19 123/66 (85) 96 Room Air 05/09/18 13:00 98 05/09/18 13:00 98 22 142/79 (100) 96 Room Air 05/09/18 12:15 99.8 93 25 126/73 93 Room Air 05/09/18 12:00 99.8 Room Air 05/09/18 12:00 Room Air 05/09/18 12:00 90 28 126/73 (90) 99 Room Air 05/09/18 11:58 99.4 87 18 128/68 96 Room Air I & O 05/10/18 07:00 Intake Total 3050 ml Output Total 1750 ml Balance 1300 ml Capillary Refill : Greater Than 3 Seconds General Appearance: No Apparent Distress HEENT: PERRL/EOMI Neck: Full Range of Motion Respiratory: Chest Non Tender, Lungs Clear, Normal Breath Sounds Cardiovascular: Regular Rate, Rhythm Gastrointestinal: normal bowel sounds, non tender, soft Extremity: Normal Capillary Refill Neurologic/Psychiatric: Alert, Oriented x3 Skin: Normal Color Lymphatic: No Adenopathy Results Lab Laboratory Tests 05/09/18 12:10: Glucometer 238H 05/09/18 12:28: Lab Scanned Report Transfusion Reaction Form 05/09/18 12:32: Lab Scanned Report Transfusion Reaction Form 05/09/18 15:29: Sodium Level 137, Potassium Level 2.9L, Chloride Level 100, Carbon Dioxide Level 25, Anion Gap 12, Blood Urea Nitrogen 50H, Creatinine 2.28H, Estimat Glomerular Filtration Rate 29, BUN/Creatinine Ratio 22, Glucose Level 171H, Calcium Level 9.5, Phosphorus Level 2.9, Magnesium Level 2.2 05/09/18 17:00: Glucometer 199H 05/10/18 03:15: White Blood Count 15.7H, Red Blood Count 3.26L, Hemoglobin 7.9L, Hematocrit 25L , Mean Corpuscular Volume 76L, Mean Corpuscular Hemoglobin 24L, Mean Corpuscular Hemoglobin Concent 32, Red Cell Distribution Width 18.0H, Platelet Count 214, Mean Platelet Volume 10.7H, Neutrophils (%) (Auto) 80H, Lymphocytes ( %) (Auto) 8L, Monocytes (%) (Auto) 12, Eosinophils (%) (Auto) 0, Basophils (%) ( Auto) 0, Neutrophils # (Auto) 12.5H, Lymphocytes # (Auto) 1.2, Monocytes # (Auto ) 1.9H, Eosinophils # (Auto) 0.0, Basophils # (Auto) 0.0, Erythrocyte Sedimentation Rate 69H, Sodium Level 138, Potassium Level 2.8L, Chloride Level 104, Carbon Dioxide Level 23, Anion Gap 11, Blood Urea Nitrogen 45H, Creatinine 1.87H, Estimat Glomerular Filtration Rate 36, BUN/Creatinine Ratio 24, Glucose Level 185H, Calcium Level 8.7, Phosphorus Level 2.3, Magnesium Level 2.1, C- Reactive Protein High Sensitivity 19.09H 05/10/18 08:25: Aspartate Amino Transf (AST/SGOT) 26, Alanine Aminotransferase (ALT/SGPT) 86H, Ammonia 23 05/10/18 10:57: Lab Scanned Report Transfusion Reaction Form Microbiology 05/08/18 Blood Culture - Preliminary, Resulted No growth 05/08/18 MRSA Screen - Final, Complete MRSA not isolated 05/08/18 Urine Culture - Final, Complete NO GROWTH Assessment/Plan Assessment/Plan Assess & Plan/Chief Complaint anemia. stable after 5 units PRBC. EGD and Colonoscopy tomorrow. Clinical Quality Measures DVT/VTE Risk/Contraindication: Risk Factor Score Per Nursin RFS Level Per Nursing on Admit: 2=Moderate MARYLU DELGADO MD May 10, 2018 11:09 am
[2018-05-10] MEDS: MAGNESIUM CITRATE 300 ML BTL PO NR ×2 (12:49→21:39)
[2018-05-10 12:56] LABS: CALCIUM 8.9 MG/DL (8.5-10.1); CREATININE SERUM 1.87 MG/DL (0.60-1.30); POTASSIUM 3.2 MMOL/L (3.6-5.0)
[2018-05-10] MEDS: PANTOPRAZOLE DRIP 200 MG/D5W 50 ML IV SCH ×2 (14:23)
--- NOTE | 2018-05-10 14:59 | Physical Therapy Daily Note ---
PT Daily Note-Current Subjective Patient is in bed and confused. Agrees to PT. Pain Numeric Pain Scale: 10-Worst Possible Pain Location: Right Location Body Site: Knee Pain Description: Chronic, Sharp Mental Status Patient Orientation: Confused Attachments: Frost Catheter, IV Transfers Functional [place] Measure 0=Not Assessed/NA 4=Minimal Assistance 1=Total Assistance 5=Supervision or Setup 2=Maximal Assistance 6=Modified [place] 3=Moderate Assistance 7=Complete IndependenceIRFPAI Quality Coding Scale 6 Independent with activity with or without an assistive device 5 Patient requires set up or clean up by helper. Patient completes activity by themselves 4 Supervision or touching assist (CGA). [place] provide cues , steadying assist 3 The helper provides less than half the effort to complete the activity 2 The helper provides more than half the effort to complete the activity 1 Dependent. The helper does all the effort to complete an activity 7 Patient refused to complete or attempt activity 9 The patient did not perform the activity before the current illness or injury 88 Not attempted due to Medical conditions or safety concerns Transfers (B, C, W/C) (FIM): 1 Scootin Rollin Supine to/from Sit: 1 Sit to/from Stand: 1 increase difficulty with motor planning with bed mobility and transfer tasks. Patient required dependent assist x 3 with all mobility and was unable to ambulate on this date. Weight Bearing Right Lower Extremity: Right Weight Bearing/Tolerated Left Lower Extremity: Left Full Weight Bearing Exercises Supine Ex: Ankle pumps, Heel Slides, Hip abd/add Supine Reps: 15 (AAROM with patient resisting right LE ROM) Seated Therapy Exercises: Long arc quads Seated Reps: 15 (AAROM right LE) Assessment Patient requires dependent assistance with all mobility and has difficulty with motor planning. From a PT standpoint, patient would benefit from ARU when medically stable and able to tolerate extensive therapies. PT Nursing Home Goals Mime Artist Goals PT Nursing Home Goals Time Frame: May 18, 2018 Transfers (B,C,W/C) (FIM): 6 Gait (FIM): 6 Gait distance (FIM): 3=150 ft Gait Level of Assist: 6 Gait Assistive Device: FWW PT Plan Treatment/Plan Treatment Plan: Continue Plan of Care Treatment Plan: Bed Mobility, Education, Functional Activity Orly, Functional Strength, Gait, Safety, Therapeutic Exercise, Transfers Treatment Duration: May 18, 2018 Frequency: 6 times per week Estimated Hrs Per Day: .5 hour per day Patient and/or Family Agrees t: Yes Discharge Recommendations Therapy D/C Recommendations: Acute Rehab Time/GCodes Time In: 1420 Time Out: 1443 Total Billed Treatment Time: 23 Total Billed Treatment 1 visit FA x 2 23 min MARTHA BEARD PT May 10, 2018 14:59
[2018-05-10] MEDS: PIPERACILLIN SODIUM/TAZOBACTAM 4.5 GM in D5W 100 ML IVPB 100 ML IV SCH ×2 (15:25→21:39)
--- NOTE | 2018-05-10 15:31 | Occupational Therapy Eval ---
OT Evaluation-General/PLF Medical Diagnosis Admission Date May 08, 2018 at 13:21 Medical Diagnosis: anemia/GI bleed Onset Date: May 08, 2018 Therapy Diagnosis Therapy Diagnosis: Weakness Height/Weight Height (Feet): 5 Height (Inches): 11.00 Weight (Pounds): 173 Weight (Ounces): 3.0 Precautions Precautions/Isolations: Fall Prevention, Standard Precautions Safety Interventions: Reorient-Attempt Weight Bear Status Weight Bearing Restriction: Weight Bearing/Tolerated Referral Physician: Mary Referral Reason: Activity Tolerance, Self Care, Evaluation/Treatment, Strengthening/ROM Medical History Pertinent Medical History: CAD, DM, Heart Failure, HTN, Neuropathy, Renal Insufficiency Additional Medical History Pt. came to ER with complaint of dizziness and weakness. Pt. also had sustained a fall. Nursing reports that pt. has gout, but is unable to be treated at this time due to renal insufficiency. Current History Pt. is somewhat confused. Unable to articulate full history. Reviewed History: Yes Social History Home: Single Level Current Living Status: Alone (per pt.) Pt. states that he doesn't have stairs, but then states that he does. Motions, "this big." States, "maybe two." ADL-Prior Level of Function ADL PLOF Comments Per pt. report, pt. was independent with all tasks. DME/Equipment Comments Pt. is unable to state what equipment he has. 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 is stating, "I can't" when OT comes into the room. Pt. is talking to PT. Appearance OT comes into room to evaluate pt. when PT and PT tech are attempting to stand pt. Pt. is unable to assist and there is a struggle. OT immediately attempts to help with stance once donning gloves. Pt. requires dependent assist x 3 to stand from bed. Pt's right knee is unable to extend and it is noted that knee is swollen. Knee is not red or hot. Pt. is unable to hold himself up and has to be sat on the bed quickly. Attempted to stand one more time. Stood and able to take a couple of steps to left ADL-Treatment Functional [place] Measure 0=Not Assessed/NA 4=Minimal Assistance 1=Total Assistance 5=Supervision or Setup 2=Maximal Assistance 6=Modified [place] 3=Moderate Assistance 7=Complete IndependenceIRFPAI Quality Coding Scale 6 Independent with activity with or without an assistive device 5 Patient requires set up or clean up by helper. Patient completes activity by themselves 4 Supervision or touching assist (CGA). [place] provide cues , steadying assist 3 The helper provides less than half the effort to complete the activity 2 The helper provides more than half the effort to complete the activity 1 Dependent. The helper does all the effort to complete an activity 7 Patient refused to complete or attempt activity 9 The patient did not perform the activity before the current illness or injury 88 Not attempted due to Medical conditions or safety concerns OT Short Term Goals Short Term Goals 1=Demonstrate adherence to instructed precautions during ADL tasks. 2=Patient will verbalize/demonstrate understanding of assistive devices/ modifications for ADL. 3=Patient will improve strength/tolerance for activity to enable patient to perform ADL's. OT Die Trimmer Goals Alf Goals 1=Demonstrate adherence to instructed precautions during ADL tasks. 2=Patient will verbalize/demonstrate understanding of assistive devices/ modifications for ADL. 3=Patient will improve strength/tolerance for activity to enable patient to perform ADL's. OT Education/Plan Treatment Plan/Plan of Care Patient would benefit from OT for education, treatment and training to promote independence in ADL's, mobility, safety and/or upper extremity function for ADL' s. Rehab Potential: PENG Durant OT May 10, 2018 15:31
--- NOTE | 2018-05-10 15:32 | Occupational Therapy Eval ---
OT Evaluation-General/PLF Medical Diagnosis Admission Date May 08, 2018 at 13:21 Medical Diagnosis: anemia/GI bleed Onset Date: May 08, 2018 Therapy Diagnosis Therapy Diagnosis: Weaknss Height/Weight Height (Feet): 5 Height (Inches): 11.00 Weight (Pounds): 173 Weight (Ounces): 3.0 Precautions Precautions/Isolations: Fall Prevention, Standard Precautions Safety Interventions: Reorient-Attempt Weight Bear Status Weight Bearing Restriction: Weight Bearing/Tolerated Referral Physician: Mary Referral Reason: Activity Tolerance, Self Care, Evaluation/Treatment, Strengthening/ROM Medical History Pertinent Medical History: CAD, DM, Heart Failure, HTN, Neuropathy, Renal Insufficiency Current History Pt. came to ER with dizziness, weakness, and after fall. Reviewed History: Yes Social History Home: Single Level Current Living Status: Alone (per pt.) Pt. is unable to articulate how many steps he has. ADL-Prior Level of Function ADL PLOF Comments Pt. was independent with ADLs prior to hospitalization. 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 is stating, "I can't" when OT comes into room. Appearance OT walks into room and PT/PT tech are attempting to stand pt. Pt. is not standing well and knees are buckling. OT assists with transfer. Mental Status/Objective Patient Orientation: Confused Attachments: Frost Catheter, IV ADL-Treatment Functional [place] Measure 0=Not Assessed/NA 4=Minimal Assistance 1=Total Assistance 5=Supervision or Setup 2=Maximal Assistance 6=Modified [place] 3=Moderate Assistance 7=Complete IndependenceIRFPAI Quality Coding Scale 6 Independent with activity with or without an assistive device 5 Patient requires set up or clean up by helper. Patient completes activity by themselves 4 Supervision or touching assist (CGA). [place] provide cues , steadying assist 3 The helper provides less than half the effort to complete the activity 2 The helper provides more than half the effort to complete the activity 1 Dependent. The helper does all the effort to complete an activity 7 Patient refused to complete or attempt activity 9 The patient did not perform the activity before the current illness or injury 88 Not attempted due to Medical conditions or safety concerns Transfers (B, C, W/C) (FIM): 1 Other Treatments OT/PT/PT tech stand pt. at bedside. Pt. unable to extend right knee. Noted knee is swollen but not red or hot. Nursing states that pt. has gout, but is untreated at this time due to renal insufficiency. Pt. had to be sat down and rest. Attempted to stand again with max assist x3. Pt. able to somewhat take two small steps to left. Unable to hold self up and had to be sat down again. Pt. able to get into bed with max assist. Attempted to straighten self out but unable to do so. Pt. is confused and poor historian. Nursing states that pt. has been able to feed self with set up. Will continue to assess pt. and work towards increased independence. Education OT Patient Education: Correct positioning, Modified ADL techniques, Progress toward Goal/Update tx plan, Purpose of tx/functional activities, Reviewed precautions, Rehab process, Transfer techniques Teaching Recipient: Patient Teaching Methods: Demonstration, Discussion Response to Teaching: Verbalize Understanding, Return Demonstration OT Short Term Goals Short Term Goals Time Frame: May 24, 2018 Eating(FIM): 5 Grooming(FIM): 3 Bathing(FIM): 3 Upper Body Dressing(FIM): 3 Lower Body Dressing(FIM): 3 Toileting(FIM): 3 Transfers (B,C,W/C) (FIM): 3 Toilet/Commode Transfer(FIM): 3 Additional Short Term Goals: 1-Demonstrate ADL Tasks, 2-Verbalize Understanding , 3-ImproveStrength/Orly 1=Demonstrate adherence to instructed precautions during ADL tasks. 2=Patient will verbalize/demonstrate understanding of assistive devices/ modifications for ADL. 3=Patient will improve strength/tolerance for activity to enable patient to perform ADL's. OT Control Tower Operator Goals [facility]sp Goals Time Frame: Jun 07, 2018 Eating (FIM): 6 Grooming(FIM): 5 Bathing(FIM): 5 Upper Body Dressing(FIM): 5 Lower Body Dressing(FIM): 5 Toileting(FIM): 5 Transfers (B,C,W/C) (FIM): 5 Toilet/Commode Transfer(FIM): 5 Shower Transfer(FIM): 4 Additional Goals: 1-Demonstrate ADL Tasks, 2-Verbalize Understanding, 3- ImproveStrength/Orly 1=Demonstrate adherence to instructed precautions during ADL tasks. 2=Patient will verbalize/demonstrate understanding of assistive devices/ modifications for ADL. 3=Patient will improve strength/tolerance for activity to enable patient to perform ADL's. OT Education/Plan Problem List/Assessment Assessment: Decreased Activ Tolerance, Decreased Safety Aware, Dependent Transfers, Impaired Bed Mobility, Impaired Cognition, Impaired Funct Balance, Impaired I ADL's, Impaired Self-Care Skills, Restricted Funct UE ROM Discharge Recommendations Plan/Recommendations: Continue POC Therapy D/C Recommendations: Acute Rehab Comment Discharge destination and equipment needs to be determined. Treatment Plan/Plan of Care Treatment,Training & Education: Yes Patient would benefit from OT for education, treatment and training to promote independence in ADL's, mobility, safety and/or upper extremity function for ADL' s. Plan of Care: ADL Retraining, Functional Mobility, UE Funct Exercise/Act Treatment Duration: Jun 07, 2018 Frequency: 5 times per week Estimated Hrs Per Day: .25 hour per day Agreement: Yes Rehab Potential: Fair Time/GCodes Start Time: 14:35 Stop Time: 14:50 Total Time Billed (hr/min): 15 Billed Treatment Time 1, PENG JIANG OT May 10, 2018 15:32
[2018-05-10] MEDS ORDERED: MAGNESIUM CITRATE 300 ML BTL PO ONE (20:00)
[2018-05-11] VITALS (26 sets, daily range): BP systolic 94–150; BP diastolic 53–91
[2018-05-11] MEDS: inSUlin ASPART (NovoLOG) 1 UNIT/0.01 ML (CHARGE PER UNIT) SC SCH ×4 (00:17→18:13)
[2018-05-11] MEDS: POTASSIUM CL 10MEQ/50ML IVPB 50 ML IV SCH ×2 (00:19→05:53)
[2018-05-11] MEDS: morphine INJ 4 MG/ML 1 ML (VIAL/SYRINGE) IVP PRN ×3 (04:38→20:57)
[2018-05-11 04:45] LABS: BASOPHILS % (AUTO) 0 % (0-10); EOSINOPHILS # (AUTO) 0.1 10^3/uL (0.0-0.3); EOSINOPHILS % (AUTO) 0 % (0-10); HEMATOCRIT 27 % (40-54); HEMOGLOBIN 8.5 G/DL (13.3-17.7); LYMPHOCYTES % (AUTO) 7 % (12-44); MEAN CORPUSCULAR HEMOGLOBIN 24 PG (25-34); MEAN CORPUSCULAR HGB CONC 32 G/DL (32-36); MEAN CORPUSCULAR VOLUME 77 FL (80-99); MEAN PLATELET VOLUME 10.5 FL (7.4-10.4); MONOCYTES # (AUTO) 1.5 X 10^3 (0.0-1.0); MONOCYTES % (AUTO) 12 % (0-12); NEUTROPHILS # (AUTO) 10.5 X 10^3 (1.8-7.8); NEUTROPHILS % (AUTO) 80 % (42-75); PLATELET COUNT 201 10^3/uL (130-400); RED CELL DISTRIBUTION WIDTH 18.1 % (10.0-14.5); WHITE BLOOD COUNT 13.1 10^3/uL (4.3-11.0)
[2018-05-11 05:00] LABS: CALCIUM 9.4 MG/DL (8.5-10.1); CREATININE SERUM 1.65 MG/DL (0.60-1.30); MAGNESIUM 2.2 MG/DL (1.8-2.4); PHOSPHORUS 1.7 MG/DL (2.3-4.7); POTASSIUM 4.1 MMOL/L (3.6-5.0)
[2018-05-11] MEDS: MAGNESIUM 1 GM/100 ML IVPB 100 ML IV SCH (05:53)
[2018-05-11] MEDS: CATHETER FLUSH 10 ML SYR IV SCH ×3 (05:53→22:35)
[2018-05-11] MEDS: KCL 20 MEQ TAB (K-DUR) PO SCH (05:53)
[2018-05-11] MEDS: PIPERACILLIN SODIUM/TAZOBACTAM 4.5 GM in D5W 100 ML IVPB 100 ML IV SCH ×3 (06:08→22:35)
[2018-05-11] MEDS: NS W/KCL 20 MEQ/L 1,000 ML IV SCH (06:40)
--- NOTE | 2018-05-11 06:40 | Pulmonary Progress Note ---
Subjective Time Seen by Provider: 06:54 Subjective/Events-last exam complains of right knee pain and will not bear weight on that side. Sepsis Event Evaluation Height, Weight, BMI Height: 5'11.00" Weight: 177lbs. 3.0oz. 80.878977pv; 23.9 BMI Method:Stated Focused Exam Lactate Level 05/08/18 11:25: Lactic Acid Level 3.21*H 05/08/18 13:42: Lactic Acid Level 3.23*H 05/09/18 03:00: Lactic Acid Level 1.06 Exam Exam Vital Signs Date Time Temp Pulse Resp B/P (MAP) Pulse Ox O2 Delivery O2 Flow Rate FiO2 05/11/18 06:00 95 16 132/75 (94) 98 Room Air 05/11/18 05:00 98 15 139/78 (98) 95 Room Air 05/11/18 04:00 100.0 05/11/18 04:00 Room Air 05/11/18 04:00 99 28 140/77 (98) 98 Room Air 05/11/18 03:00 100 22 131/80 (97) 94 Room Air 05/11/18 02:00 96 13 119/83 (95) 95 Room Air 05/11/18 01:00 98 05/11/18 01:00 96 16 120/77 (91) 94 Room Air 05/11/18 00:00 Room Air 05/11/18 00:00 100 21 123/89 (100) 94 Room Air 05/10/18 23:00 101 12 125/76 (92) 93 Room Air 05/10/18 22:00 101 19 132/76 (94) 92 Room Air 05/10/18 21:32 97 Room Air 05/10/18 21:00 101 12 124/83 (97) 97 Room Air 05/10/18 20:00 100.4 05/10/18 20:00 Room Air 05/10/18 20:00 99 15 120/73 (89) 96 Room Air 05/10/18 19:00 103 05/10/18 19:00 102 15 138/77 (97) 90 Room Air 05/10/18 18:00 103 17 135/82 (99) 93 Room Air 05/10/18 17:00 105 13 153/82 (105) 96 Room Air 05/10/18 16:00 Room Air 05/10/18 16:00 98.0 05/10/18 16:00 105 20 153/94 (113) 95 Room Air 05/10/18 15:00 97 22 134/88 (103) 96 Room Air 05/10/18 14:00 98 16 147/82 (103) 96 Room Air 05/10/18 13:00 92 9 137/80 (99) 96 Room Air 05/10/18 13:00 95 05/10/18 12:55 99.6 05/10/18 12:45 Room Air 05/10/18 12:00 96 14 145/86 (105) 96 Room Air 05/10/18 11:00 97 18 120/101 (107) 96 Room Air 05/10/18 10:00 101 11 138/84 (102) 95 Room Air 05/10/18 09:04 100.8 05/10/18 09:03 96 Room Air 05/10/18 09:00 98 11 132/75 (94) 91 Room Air 05/10/18 08:15 Room Air 05/10/18 08:00 96 18 143/78 (99) 94 Room Air 05/10/18 07:00 99 05/10/18 07:00 98 20 146/75 (98) 93 Room Air 05/10/18 07:00 I & O 05/11/18 07:00 Intake Total 3405 ml Output Total 2075 ml Balance 1330 ml Height & Weight Height: 5'11.00" Weight: 177lbs. 3.0oz. 80.149469nt; 23.9 BMI Method:Stated General Appearance: No Apparent Distress HEENT: PERRL/EOMI Neck: Full Range of Motion Respiratory: Chest Non Tender, Lungs Clear, Normal Breath Sounds Cardiovascular: Regular Rate, Rhythm Capillary Refill: Greater Than 3 Seconds Gastrointestinal: normal bowel sounds, non tender, soft Extremity: Normal Capillary Refill, Other (edematous right knee upon admission ) Neurologic/Psychiatric: Alert, Oriented x3 Skin: Normal Color Lymphatic: No Adenopathy Results Lab Laboratory Tests 05/09/18 15:29 05/10/18 03:15 05/10/18 12:10 05/11/18 04:25 Assessment/Plan Assessment/Plan Anemia with positive FOB s/p 4 units of PRBC -Protonix gtt -surgery is planning on EGD today -monitor Leukocytosis and fever Tm 100.4 - question of septic right knee - Continue Zosyn -guthrie cultures pending Right knee edematous, and painful s/p fall at home prior to admission -Pt is requesting ortho consult- will place consult -Xray is negative -Pt won't bear weight on that side NSTEMI without CP s/p fall Acute on chronic renal failure dehydration hx of CAD last cath stent to LAD 02/17 CHF EF 40% -Monitor Diabetes mellitus Tobaccoism, stopped smoking around the year 1999. ESTEPHANIA MILAN DO May 11, 2018 06:40
[2018-05-11] MEDS ORDERED: SODIUM PHOSPHATE INJ 30 MM in NS (IVPB) 250 ML IV NR (06:45)
--- NOTE | 2018-05-11 07:24 | Progress Note-Hospitalist ---
Subjective HPI/CC On Admission Date Seen by Provider: May 11, 2018 Time Seen by Provider: 07:20 Pt is a 67yoCM who presented to the ER due to dizziness. He is still confused to the details of his HPI. He states he is here because he hasn't been feeling well but has difficulty describing why. He knows it's been going on for a few weeks. He complains of fatigue and feeling like his "head is in water." His friend is at bedside who states he has not been eating or drinking well for the past few weeks and has hardly been able to work. He apparently has been very dizzy and ended up falling yesterday prompting him to seek evaluation in the ER. He was found to be very anemic at 4.3 with a positive FOBT. He was admitted to the ICU and transfused 4u PRBCs. Of note his troponin was found ot be elevated at 0.8 and then went to 4.85. Subjective/Events-last exam Pt reports feeling better today. His only complaint is persistent knee pain. He is ready for colonoscopy today. Focused Exam Lactate Level 05/08/18 11:25: Lactic Acid Level 3.21*H 05/08/18 13:42: Lactic Acid Level 3.23*H 05/09/18 03:00: Lactic Acid Level 1.06 Objective Exam Vital Signs Vital Signs Date Time Temp Pulse Resp B/P (MAP) Pulse Ox O2 Delivery O2 Flow Rate FiO2 05/11/18 06:00 95 16 132/75 (94) 98 Room Air 05/11/18 04:00 100.0 05/08/18 14:32 28 05/08/18 13:55 2.00 Capillary Refill : Greater Than 3 Seconds General Appearance: No Apparent Distress, WD/WN Respiratory: Lungs Clear, No Respiratory Distress Cardiovascular: Regular Rate, Rhythm, No Murmur Gastrointestinal: Normal Bowel Sounds, Non Tender, Soft Neurologic/Psychiatric: Alert, Oriented x3, Normal Mood/Affect Results/Procedures Lab Laboratory Tests 05/10/18 12:10 05/11/18 04:25 Patient resulted labs reviewed. Imaging: Reviewed Imaging Report Assessment/Plan Assessment and Plan Assess & Plan/Chief Complaint GI bleed Diagnosis/Problems Diagnosis/Problems (1) GI bleed Status: Acute Assessment & Plan: FOBT + s/p 5 units pRBCs Hemoglobin stable Surgery consulted- appreciate recs Discussed with Dr Kido- plan to scope today Qualifiers: GI bleed type/associated pathology: unspecified gastrointestinal hemorrhage type Qualified Codes: K92.2 - Gastrointestinal hemorrhage, unspecified (2) NSTEMI (non-ST elevated myocardial infarction) Status: Acute Assessment & Plan: troponin elevated but unable to cath Likely demand ischemia from GI bleed Cardiology consulted, appreciate recs Discussed with Dr Gallardo- medical management as able now but cannot cath or given anticoagulation due to bleeding and renal failure (3) Leukocytosis Status: Acute Assessment & Plan: Mild leukocytosis- trending down On Zosyn cultures NGTD (4) Altered mental status Status: Acute Assessment & Plan: Improved further today Qualifiers: Altered mental status type: unspecified Qualified Codes: R41.82 - Altered mental status, unspecified (5) CKD (chronic kidney disease) Status: Chronic Assessment & Plan: At baseline Qualifiers: Chronic kidney disease stage: stage 3 (moderate) Qualified Codes: N18.3 - Chronic kidney disease, stage 3 (moderate) (6) Diabetes Status: Chronic Assessment & Plan: SSI A Qualifiers: Diabetes mellitus type: type 2 Diabetes mellitus termite treater insulin use: without termite treater use Diabetes mellitus complication status: with kidney complications Diabetes mellitus complication detail: with chronic kidney disease Chronic kidney disease stage: stage 3 (moderate) Qualified Codes: E11.22 - Type 2 diabetes mellitus with diabetic chronic kidney disease; N18.3 - Chronic kidney disease, stage 3 (moderate) (7) Hypokalemia Status: Acute Assessment & Plan: Resolved this AM (8) Hypomagnesemia Status: Acute Assessment & Plan: Replaced this AM (9) Prophylactic measure Assessment & Plan: SCDs only NS +20KCL at 100ml/hr NPO Clinical Quality Measures DVT/VTE Risk/Contraindication: Risk Factor Score Per Nursin RFS Level Per Nursing on Admit: 2=Moderate MARY SANTA MD May 11, 2018 7:24 am
--- NOTE | 2018-05-11 08:18 | Diagnostic Imaging Report ---
Indication: Anemia, GI bleed, AMS, ICU care. Findings: Portable view of the chest is compared to exam from yesterday. Cardiomegaly is stable with normal vascularity. Lungs are clear. There are no pleural effusions. Impression: Stable cardiomegaly. Dictated by: Dictated on workstation # [id number]
[2018-05-11] MEDS ORDERED: LIDOCAINE JELLY 2% (XYLOCAINE) 5 ML TUBE ONE (09:25)
[2018-05-11] MEDS ORDERED: fentaNYL INJECTION 100 MCG/2 ML AMP ONE (09:25)
[2018-05-11] MEDS ORDERED: MIDAZOLAM 2 MG/2 ML (VERSED) VIAL ONE ×4 (09:25→09:26)
[2018-05-11] MEDS ORDERED: HURRICAINE EXT TUBE (BENZOCAINE) ONE (09:26)
[2018-05-11] MEDS ORDERED: RT-ALBUTEROL/IPRATROPIUM 3 ML (DUONEB) VIAL INH PRN (09:30)
[2018-05-11] MEDS: MIDAZOLAM 2 MG/2 ML (VERSED) VIAL IVP PRN ×4 (09:50→10:25)
[2018-05-11] MEDS: fentaNYL INJECTION 100 MCG/2 ML AMP IVP PRN ×2 (09:51→10:01)
--- NOTE | 2018-05-11 10:15 | Cardiology Progress Note ---
Subjective Date Seen by Provider: May 11, 2018 Time Seen by Provider: 09:00 Subjective/Events-last exam Patient sitting in bed, no new complaints. Planning for colonoscopy later this morning. Focused Exam Lactate Level 05/08/18 11:25: Lactic Acid Level 3.21*H 05/08/18 13:42: Lactic Acid Level 3.23*H 05/09/18 03:00: Lactic Acid Level 1.06 Objective-Cardiology Exam Last Set of Vital Signs Vital Signs 05/08/18 05/08/18 05/11/18 05/11/18 05/11/18 05/11/18 13:55 14:32 06:00 08:24 09:00 09:15 Temp 99.4 Pulse 81 Resp 16 B/P (MAP) 132/75 (94) Pulse Ox 97 O2 Delivery Room Air O2 Flow Rate 2.00 FiO2 28 Capillary Refill : Greater Than 3 Seconds I&O Intake and Output 05/11/18 00:00 Intake Total 3455 ml Output Total 2275 ml Balance 1180 ml Intake Oral 700 ml IV Total 2755 ml Output Urine Total 2275 ml General: Alert, Oriented X3, Cooperative HEENT: Atraumatic, PERRLA Neck: Supple, No JVD, No Thyromegaly Lungs: Clear to Auscultation, Normal Air Movement Heart: Regular Rate, Normal S1, Normal S2, No Murmurs Abdomen: Normal Bowel Sounds, Soft, No Tenderness, No Hepatosplenomegaly, No Masses Extremities: No Clubbing, No Cyanosis, No Edema, Normal Pulses, No Tenderness/ Swelling Skin: No Rashes, No Breakdown, No Significant Lesion Neuro: Normal Gait, Normal Speech, Strength at 5/5 X4 Ext, Normal Tone, Sensation Intact Psych/Mental Status: Mental Status NL, Mood NL Results Lab Laboratory Tests 05/10/18 12:10 05/11/18 04:25 A/P-Cardiology Admission Diagnosis Anemia Non-ST elevation myocardial infarction Coronary artery disease Acute renal failure Assessment/Plan Severe Anemia, hemoglobin 4 on admission. S/p blood transfusion. H/H remaining stable. Planning for endoscopy later today. Continue to monitor. Non-ST elevation myocardial infarction, no active chest pain, troponin elevation is probably secondary to coronary artery disease and severe anemia. Cannot tolerate anticoagulation at this time. Continue conservative management and monitoring Coronary artery disease history of cardiac catheterization done by Dr. Vela in February 2017 showing subtotal occlusion of the LAD treated with overlapping stents resolute 2.2530 and 2.514 mm dilated to 2.75 and 2.9 mm. Mild to moderate disease in the right coronary artery and left circumflex artery with mildly elevated left ventricular end-diastolic pressure. Has been treated medically. Acute renal failure on top of chronic kidney disease stage III, continue with monitoring and hydration at this time. Hypokalemia, electrolyte imbalance, received multiple doses of potassium replacement, improved. Continue to monitor Congestive heart failure, chronic compensated left ventricular systolic dysfunction with ejection fraction 40 percent, mild MR and TR, pulmonary artery pressure of 40 mmHg, moderate concentric left ventricular hypertrophy last echocardiogram was done in January 2017, I will repeat 2-D echocardiogram. Leukocytosis, elevated sedimentation rate. Blood cultures so far are negative. Patient has history of [place] spotted fever and has been treated twice in the past for it Diabetes mellitus, followed and managed by primary care physician Tobaccoism, stopped smoking around the year 1999. Clinical Quality Measures DVT/VTE Risk/Contraindication: Risk Factor Score Per Nursin RFS Level Per Nursing on Admit: 2=Moderate JOSE TAPIA May 11, 2018 10:15
--- NOTE | 2018-05-11 11:05 | Conscious Sedation/ASA ---
Conscious Sedation Pre-Proced Time Reviewed: 09:00 ASA Class: 2 Airway Mallampati Classification: ([place] appropriate class) I. II. III, IV Lungs Heart ASA score ASA 1: a normal healthy patient ASA 2: a patient with a mild systemic disease (mid diabetes, controlled hypertension, obesity ASA 3: a patient with a severe systemic disease that limits activity (angina , COPD, prior Myocardial infarction) ASA 4: a patient with an incapacitating disease that is a constant threat to life (CHF, renal failure) ASA 5: a moribund patient not expected to survive 24 hrs. (ruptured aneurysm) ASA 6: a declared brain patient whose organs are being harvested. For emergent operations, add the letter E after the classification Grade 2 Sedation Plan: Analgesia, Amnesia, Plan communicated to team members, Discussed options with patient/fam, Discussed risks with patient/fam Note The patient is an appropriate candidate to undergo the planned procedure, sedation, and anesthesia. The patient immediately re-assessed prior to indication. MARYLU DELGADO MD May 11, 2018 11:05
--- NOTE | 2018-05-11 11:06 | Progress Note-Pre Operative ---
Pre-Operative Progress Note H&P Reviewed The H&P was reviewed, patient examined and no changes noted. Date Seen by Provider: May 11, 2018 Time Seen by Provider: 09:00 Date H&P Reviewed: May 11, 2018 Time H&P Reviewed: 09:00 Pre-Operative Diagnosis: symptomatic anemia MARYLU DELGADO MD May 11, 2018 11:05
--- NOTE | 2018-05-11 11:12 | Progress Note-Post Operative ---
Post-Operative Progess Note Surgeon (s)/Ui Ux Web Developer (s) Surgeon MARYLU DELGADO MD Ui Ux Web Developer: none Pre-Operative Diagnosis symptomatic anemia Post-Operative Diagnosis reflux esophagitis(grade 2), no HH, moderate gastritis with small antral eroision. mild chronic stage 1 ext and int hemorrhoids. Procedure & Operative Findings Date of Procedure 05/11/18 Procedure Performed/Findings EGD with bx. Colonoscopy. Anesthesia Type CS Estimated Blood Loss Estimated blood loss (mL): minimal Specimens/Packing Specimens Removed antral erosion, GE jxn MARYLU DELGADO MD May 11, 2018 11:12 am
[2018-05-11] MEDS ORDERED: HURRICAINE EXT TUBE (BENZOCAINE) XX PRN (11:30)
[2018-05-11] MEDS ORDERED: LIDOCAINE JELLY 2% (XYLOCAINE) 5 ML TUBE MM PRN (11:30)
--- NOTE | 2018-05-11 11:55 | Physical Therapy Progress Note ---
Therapy Progress Note Pt resting Supine in bed upon arrival. Sp reports pt has been struggling with increased pain and swelling around knee and would like Dr Villareal to review before PT continues to work with Pt. Nurse is notified and call [place] with Dr Villareal's office for consult. Pt resting and all needs met. 1 visit, no tx rendered SANDRA GEIGER METAL RIVETING MACHINE OPERATOR May 11, 2018 11:55
--- NOTE | 2018-05-11 13:23 | Consultation ---
History of Present Illness History of Present Illness Patient Consulted On(mariann/time) 05/11/18 13:16 Date Seen by Provider: May 11, 2018 Time Seen by Provider: 12:30 Reason for Visit: Acute myocardial infarction History of Present Illness Fall at home with complaints of right knee pain after fall. Significant other at bedside reports it was a hyperflexion injury, unable to ambulate on right knee due to pain. Was then admitted for severe anemia and altered mental status. Has been seen in the past for knee effusion and swelling secondary to gouty arthritis. His labs indicate elevations in Sed rate and CRP with no obvious source for infection. He did have an elevated sed rate and CRP when seen in the office in the past. We attributed this to a gouty flare. The patient was concerned about tick shanna illnesses and was going to speak with Dr. Fam about this. Allergies and Home Medications Allergies Coded Allergies: No Known Drug Allergies (Unverified , 01/25/17) Home Medications Allopurinol 300 Mg Tablet, 300 MG PO DAILY, (Reported) Aspirin 81 Mg Tab.chew, 81 MG PO DAILY, (Reported) Clopidogrel Bisulfate 75 Mg Tablet, 75 MG PO DAILY, (Reported) Furosemide 40 Mg Tablet, 40 MG PO DAILY, (Reported) Glimepiride 4 Mg Tablet, 4 MG PO BID, (Reported) Metolazone 2.5 Mg Tablet, 2.5 MG PO DAILY, (Reported) Metoprolol Succinate 100 Mg Tab.er.24h, 100 MG PO Q48H, (Reported) Potassium Chloride 20 Meq Tab.er.prt, 20 MEQ PO DAILY, (Reported) Patient Home Medication List Home Medication List Reviewed: Yes Past Qafhpch-Qijqpc-Wxuqfw Hx Past Med/Social Hx: Reviewed Nursing Past Med/Soc Hx Patient Social History Alcohol Use: Denies Use Number of Drinks Today: AA Alcohol Beverage of Choice: Beer Recreational Drug Use: No Smoking Status: Former Smoker Type Used: Cigarettes Former Smoker, Quit: February 09, 1998 2nd Hand Smoke Exposure: No Recent Foreign Travel: No Contact w/Someone Who Travel: No Recent Infectious Disease Expo: No Recent Hopitalizations: Yes Physical Abuse: No Sexual Abuse: No Immunizations Up To Date PED Vaccines UTD: No Seasonal Allergies Seasonal Allergies: No Past Medical History Surgeries: Yes (Mass removed from neck 2009) Respiratory: No Pneumonia Currently Using CPAP: No Currently Using BIPAP: No Cardiac: Yes Coronary Artery Disease, High Cholesterol, Hypertension Neurological: No Neuropathy Genitourinary: Yes Renal Failure Gastrointestinal: No Musculoskeletal: Yes Chronic Back Pain, Gout Endocrine: Yes Diabetes, Non-Insulin dep HEENT: Yes Cataract Loss of Vision: Denies Hearing Impairment: Denies Cancer: No Psychosocial: No Nursing Suicide Risk Score: 0 Integumentary: No Blood Disorders: No Family Medical History Reviewed Nursing Family Hx No Pertinent Family Hx Review of Systems-General Constitutional: fever, weakness EENTM: no symptoms reported Respiratory: dyspnea on exertion Gastrointestinal: no symptoms reported Genitourinary: no symptoms reported Musculoskeletal: see HPI, gout, joint pain, joint swelling Skin: no symptoms reported Psychiatric/Neurological: No Symptoms Reported Physical Exam-General Problems Physical Exam Vital Signs Vital Signs - First Documented 05/08/18 05/08/18 11:30 14:32 O2 Flow Rate 2.00 FiO2 28 Capillary Refill : Greater Than 3 Seconds General Appearance: no apparent distress Eyes: Left Eye PERRL HEENT: normal ENT inspection Neck: non-tender, normal inspection Gastrointestinal: non tender, soft Extremities: no calf tenderness, normal capillary refill, other (tenderness aterior and superior right knee, 2+ effusion with fluctuants noted, Unable to palpate quadriceps tendon, poor effort with leg extension noted) Skin: normal color, warm/dry Lymphatic: no adenopathy Assessment/Plan Assessment/Plan Admission Diagnosis/Plan A: Fall Acute blood loss anemia right knee hemearthrosis with possible quadriceps tendon rupture Knee aspirated and hemearthrosis noted, will order stat MRI for possible quad tendon rupture. fluid from knee obtained and sent for C&S with gram stain Clinical Quality Measures DVT/VTE Risk/Contraindication: Risk Factor Score Per Nursin RFS Level Per Nursing on Admit: 2=Moderate SAMSON HEBERT APRN May 11, 2018 1:23 pm
--- NOTE | 2018-05-11 13:23 | Physical Therapy Progress Note ---
Therapy Progress Note Pt will not be seen this afternoon per Nurse. [place] with Dr Villareal visited and fluid on knee found. PT will resume when appropriate. no visit, no tx SANDRA GEIGER PTA May 11, 2018 13:23
--- NOTE | 2018-05-11 13:28 | Procedure/Intervention Note ---
Procedure Note Vital Signs Vital Signs Date Time Temp Pulse Resp B/P (MAP) Pulse Ox O2 Delivery O2 Flow Rate FiO2 05/11/18 12:25 98.4 05/11/18 12:00 98 28 118/76 (90) 98 Room Air 05/08/18 14:32 28 05/08/18 13:55 2.00 Procedure Note After consent was obtained from the patient, the right knee was marked at the superolateral patellar border, The knee was sterilized with chlorhexadine then sterile drapes were applied. A 18g needle was directed into the suprapatellar pouch and 42cc of sanguinous drainage was aspirated without complications in a sterile fashion. The needle was removed and the cultures were sent to lab. SAMSON HEBERT APRN May 11, 2018 1:28 pm
--- NOTE | 2018-05-11 14:01 | Cardiology Progress Note ---
Subjective Date Seen by Provider: May 11, 2018 Time Seen by Provider: 13:57 Subjective/Events-last exam Patient is laying down in bed, still lethargic after the sedation for the procedure. Reported to have erosion. No active bleeding was noted on scope Review of Systems General: No Chills, No Night Sweats, No Fatigue, No Malaise, No Appetite, No Other HEENT: No Head Aches, No Visual Changes, No Eye Pain, No Ear Pain, No Dysphasia , No Sinus Congestion, No Post Nasal Drip, No Sore Throat, No Other Pulmonary: No Dyspnea, No Cough, No Pleuritic Chest Pain, No Other Cardiovascular: No: Chest Pain, Palpitations, Orthopnea, Paroxysmal Noc. Dyspnea, Edema, Lt Headedness, Other Focused Exam Lactate Level 05/09/18 03:00: Lactic Acid Level 1.06 Objective-Cardiology Exam Last Set of Vital Signs Vital Signs 05/08/18 05/08/18 05/11/18 05/11/18 13:55 14:32 12:00 12:25 Temp 98.4 Pulse 98 Resp 28 B/P (MAP) 118/76 (90) Pulse Ox 98 O2 Delivery Room Air O2 Flow Rate 2.00 FiO2 28 Capillary Refill : Greater Than 3 Seconds I&O Intake and Output 05/11/18 00:00 Intake Total 3455 ml Output Total 2275 ml Balance 1180 ml Intake Oral 700 ml IV Total 2755 ml Output Urine Total 2275 ml General: Alert, Mild Distress, Other (Confused, recovering from procedure) HEENT: Atraumatic, PERRLA Neck: Supple, No JVD, No Thyromegaly Lungs: Clear to Auscultation, Normal Air Movement Heart: Normal S1, Normal S2, No Murmurs, Other (Tachycardia) Abdomen: Normal Bowel Sounds, Soft, No Tenderness, No Hepatosplenomegaly, No Masses Extremities: No Clubbing, No Cyanosis, No Edema, Normal Pulses, No Tenderness/ Swelling Skin: No Rashes, No Breakdown, No Significant Lesion Neuro: Normal Tone Psych/Mental Status: Mood NL Results Lab Laboratory Tests 05/11/18 04:25 A/P-Cardiology Admission Diagnosis Anemia Non-ST elevation myocardial infarction Coronary artery disease Acute renal failure Assessment/Plan Severe Anemia, status post multiple blood transfusion, endoscopy was done by Dr. Maharaj. No active bleeding was noted, some erosion was noted. Still anemic at this time. Recommend lpn rn he had a evaluation Non-ST elevation myocardial infarction, no active chest pain, troponin elevation is probably secondary to coronary artery disease and severe anemia. Cannot tolerate anticoagulation at this time. Continue conservative management and monitoring Coronary artery disease history of cardiac catheterization done by Dr. Vela in February 2017 showing subtotal occlusion of the LAD treated with overlapping stents resolute 2.2530 and 2.514 mm dilated to 2.75 and 2.9 mm. Mild to moderate disease in the right coronary artery and left circumflex artery with mildly elevated left ventricular end-diastolic pressure. Has been treated medically. Tachycardia, appears to be in SVT at this time. Still recovering from anesthesia, continue to monitor and will consider IV beta blockers. Acute renal failure on top of chronic kidney disease stage III, continue with monitoring and hydration at this time. Hypokalemia, electrolyte imbalance, received multiple doses of potassium replacement, improved. Continue to monitor Congestive heart failure, chronic compensated left ventricular systolic dysfunction with ejection fraction 40 percent, mild MR and TR, pulmonary artery pressure of 40 mmHg, moderate concentric left ventricular hypertrophy last echocardiogram was done in January 2017, I will repeat 2-D echocardiogram. Leukocytosis, elevated sedimentation rate. Blood cultures so far are negative. Patient has history of [place] spotted fever and has been treated twice in the past for it Diabetes mellitus, followed and managed by primary care physician Tobaccoism, stopped smoking around the year 1999. Clinical Quality Measures DVT/VTE Risk/Contraindication: Risk Factor Score Per Nursin RFS Level Per Nursing on Admit: 2=Moderate ELY DENT MD May 11, 2018 14:01
--- NOTE | 2018-05-11 14:01 | Occ Therapy Progress Note ---
Therapy Progress Note [id number] Pt's said that he is still groggy from knee scope this morning so no therapy this afternoon. Nursing reported no weight bearing at this time until knee MRI completed. MARIBEL GUIDO OT May 11, 2018 14:01
[2018-05-11] MEDS ORDERED: LACTATED RINGERS 1,000 ML IV ONE ×2 (14:33→14:45)
[2018-05-11] MEDS ORDERED: DILTIAZEM 25 MG/5 ML INJ (CARDIZEM) VIAL ONE ×2 (14:34→14:35)
[2018-05-11 14:40] LABS: ABG BASE EXCESS -0.9 MMOL/L (-2.5-2.5); ABG OXYGEN SATURATION 91 % (94-100); ABG PCO2 36 MMHG (35-45); ABG PH 7.42 (7.37-7.43); ABG PO2 63 MMHG (79-93); ABG TCO2 23.9 MMOL/L (21.0-31.0); ALLENS TEST YES-POS; INSPIRED O2 5L; PATIENT TEMP 99.7; VENTILATOR NO
[2018-05-11] MEDS ORDERED: DILTIAZEM 25 MG/5 ML INJ (CARDIZEM) VIAL IVP NR (14:45)
--- NOTE | 2018-05-11 14:50 | Diagnostic Imaging Report ---
Indication: Hypoxia. Comparison: 05/11/2018 Single view of the chest demonstrates a cardiac enlargement with bilateral interstitial infiltrates, left greater than right. There is no pneumothorax or large effusion. Osseous structures are stable. Impression: Cardiac enlargement with bilateral interstitial infiltrates representing CHF versus pneumonia. Followup recommended. Dictated by: Dictated on workstation # [id number]
--- NOTE | 2018-05-11 15:11 | Pulmonary Progress Note ---
Subjective Time Seen by Provider: 15:16 Subjective/Events-last exam called to bedside secondary to pt becoming acutely unstable. Review of Systems General: Chills, Fatigue HEENT: No Head Aches, No Visual Changes Pulmonary: Dyspnea; No Cough, No Pleuritic Chest Pain Cardiovascular: No: Chest Pain, Palpitations Gastrointestinal: No: Nausea, Vomiting Neurological: Weakness, Confusion Sepsis Event Evaluation Height, Weight, BMI Height: 5'11.00" Weight: 177lbs. 3.0oz. 80.821935er; 23.9 BMI Method:Stated Focused Exam Lactate Level 05/09/18 03:00: Lactic Acid Level 1.06 Exam Exam Vital Signs Date Time Temp Pulse Resp B/P (MAP) Pulse Ox O2 Delivery O2 Flow Rate FiO2 05/11/18 12:25 98.4 05/11/18 12:00 98 28 118/76 (90) 98 Room Air 05/11/18 11:00 85 16 116/60 (78) 97 Room Air 05/11/18 10:00 93 13 114/79 (91) 98 Room Air 05/11/18 09:15 81 97 05/11/18 09:00 93 14 123/82 (96) 98 Room Air 05/11/18 09:00 99.4 05/11/18 08:24 97 Room Air 05/11/18 08:00 Room Air 05/11/18 08:00 91 13 130/75 (93) 96 Room Air 05/11/18 07:00 96 24 125/80 (95) 98 Room Air 05/11/18 07:00 96 05/11/18 06:00 95 16 132/75 (94) 98 Room Air 05/11/18 05:00 98 15 139/78 (98) 95 Room Air 05/11/18 04:00 100.0 05/11/18 04:00 Room Air 05/11/18 04:00 99 28 140/77 (98) 98 Room Air 05/11/18 03:00 100 22 131/80 (97) 94 Room Air 05/11/18 02:00 96 13 119/83 (95) 95 Room Air 05/11/18 01:00 98 05/11/18 01:00 96 16 120/77 (91) 94 Room Air 05/11/18 00:00 Room Air 05/11/18 00:00 100 21 123/89 (100) 94 Room Air 05/10/18 23:00 101 12 125/76 (92) 93 Room Air 05/10/18 22:00 101 19 132/76 (94) 92 Room Air 05/10/18 21:32 97 Room Air 05/10/18 21:00 101 12 124/83 (97) 97 Room Air 05/10/18 20:00 100.4 05/10/18 20:00 Room Air 05/10/18 20:00 99 15 120/73 (89) 96 Room Air 05/10/18 19:00 103 05/10/18 19:00 102 15 138/77 (97) 90 Room Air 05/10/18 18:00 103 17 135/82 (99) 93 Room Air 05/10/18 17:00 105 13 153/82 (105) 96 Room Air 05/10/18 16:00 Room Air 05/10/18 16:00 98.0 05/10/18 16:00 105 20 153/94 (113) 95 Room Air I & O 05/11/18 07:00 Intake Total 4705 ml Output Total 2075 ml Balance 2630 ml Height & Weight Height: 5'11.00" Weight: 177lbs. 3.0oz. 80.609071he; 23.9 BMI Method:Stated General Appearance: WD/WN, Anxious, Severe Distress HEENT: PERRL/EOMI Neck: Full Range of Motion, Supple Respiratory: Lungs Clear, No Respiratory Distress, Decreased Breath Sounds Cardiovascular: Regular Rate, Rhythm, No Murmur Capillary Refill: Greater Than 3 Seconds Gastrointestinal: non tender, soft Extremity: Normal Capillary Refill, Other (edematous right knee upon admission ) Neurologic/Psychiatric: Normal Mood/Affect, Disoriented, Motor Weakness Skin: Cool Lymphatic: No Adenopathy Results Lab Laboratory Tests 05/09/18 15:29 05/10/18 03:15 05/10/18 12:10 05/11/18 04:25 Assessment/Plan Assessment/Plan Sinus tachy, hypotension, rigors, fever -- Pt denies CP, abd/pain, N/V -repeat guthrie cultures, stat CMP, mg, BNP, CBC, ABG -Check stat CXR -Check EKG -start severe sepsis protocol -Will keep pt in ICU -Change Abx to merrem and vanco Anemia with positive FOB s/p 4 units of PRBC -Protonix gtt -S/P EGD -monitor Leukocytosis and fever Tm 100.4 - question of septic right knee - Continue Zosyn -guthrie cultures pending Right knee edematous, and painful s/p fall at home prior to admission -Pt is requesting ortho consult- will place consult -Xray is negative -Pt won't bear weight on that side NSTEMI without CP s/p fall Acute on chronic renal failure dehydration hx of CAD last cath stent to LAD 02/17 CHF EF 40% -Monitor Diabetes mellitus Tobaccoism, stopped smoking around the year 1999. Family at bedside prior to pt being transferred to 4th floor he became lethargic , confused, tachycardic, and hypoxic. Pt placed on oxygen and labs are pending. Total time spent with patient is 60 min not counting this AM's visit. I have also discussed patient with ortho. They ordered an MRI of his right leg however currently he is too unstable for MRI. Total time spent with patient not counting this AM is 60min. Critical Care: Critically Ill Patient Time spent with patient (mins): 60 ESTEPHANIA MILAN DO May 11, 2018 15:11
[2018-05-11 15:15] LABS: MEAN PLATELET VOLUME 11.2 FL (7.4-10.4); RED BLOOD COUNT 3.71 10^6/uL (4.35-5.85); RED CELL DISTRIBUTION WIDTH 18.6 % (10.0-14.5); WHITE BLOOD COUNT 13.5 10^3/uL (4.3-11.0)
[2018-05-11] MEDS ORDERED: LACTATED RINGERS IV PRN (15:15)
[2018-05-11] MEDS: NOREPINEPHRINE 4 MG in NS (IVPB) 250 ML IV SCH (15:16)
[2018-05-11] MEDS: DILTIAZEM INJECTION 125 MG in D5W 100 ML IVPB 100 ML IV SCH (15:16)
[2018-05-11 15:29] LABS: BILIRUBIN,URINE NEGATIVE (NEGATIVE); CLARITY,URINE CLEAR; COLOR,URINE YELLOW; GLUCOSE, URINE (UA) NEGATIVE (NEGATIVE); KETONES,URINE NEGATIVE (NEGATIVE); LEUKOCYTE ESTERASE ,URINE 1+ (NEGATIVE); NITRITE,URINE NEGATIVE (NEGATIVE); PH,URINE 5 (5-9); PROTEIN,URINE 2+ (NEGATIVE); UROBILINOGEN,URINE NORMAL (NORMAL)
[2018-05-11] MEDS ORDERED: VANCOMYCIN 1,750 MG/NS 500 ML IVPB IV NR ×2 (15:30)
[2018-05-11] MEDS ORDERED: PHARMACY TO DOSE IV SCH (15:30)
[2018-05-11 15:36] LABS: ALBUMIN 3.5 GM/DL (3.2-4.5); BILIRUBIN,TOTAL 1.1 MG/DL (0.1-1.0); CALCIUM 9.2 MG/DL (8.5-10.1); CREATININE SERUM 1.65 MG/DL (0.60-1.30); MAGNESIUM 2.2 MG/DL (1.8-2.4); PHOSPHORUS 3.7 MG/DL (2.3-4.7); POTASSIUM 4.2 MMOL/L (3.6-5.0); TOTAL PROTEIN 6.7 GM/DL (6.4-8.2)
[2018-05-11 15:42] LABS: BACTERIA,URINE TRACE /HPF; SQUAMOUS EPITHELIAL CELL,UR 0-2 /HPF
[2018-05-11] MEDS: PANTOPRAZOLE DRIP 200 MG/D5W 50 ML IV SCH ×2 (16:57)
[2018-05-11] MEDS: LACTATED RINGERS 1,000 ML IV SCH (17:17)
--- NOTE | 2018-05-11 18:38 | OPERATIVE REPORT ---
DATE OF SERVICE: 05/11/2018 ATTENDING PRIMARY CARE PHYSICIAN: Sue Fam DO PREOPERATIVE DIAGNOSIS: Severe symptomatic anemia. POSTOPERATIVE DIAGNOSIS: Reflux esophagitis grade II. No hiatal hernia. Moderate severity gastritis with a healed antral erosion. Chronic stage II external and internal hemorrhoids. Remainder of the colon and rectum appeared normal. PROCEDURE: EGD with biopsy, colonoscopy. SURGEON: Marylu Maharaj MD ANESTHESIA: Conscious sedation. ESTIMATED BLOOD LOSS: Minimal. FINDINGS: EGD, reflux esophagitis grade II. No hiatal hernia. Moderate severity gastritis with a small antral erosion, which was a linear approximately 3 mm in size with overlying fibrin clot, no active bleeding identified. No formal ulcerations identified. Pylorus and duodenum appeared normal with no distal obstructions as well as no active bleeding sources. Colonoscopy, chronic stage II external and internal hemorrhoids, not actively edematous nor inflamed and no bleeding. The remainder of the rectum and colon were normal. There was a poor prep; however, with suctioning and irrigation, we were able to visualize majority of the mucosa with no bleeding sources or polyps identified. DISPOSITION: The patient tolerated the procedure well. INDICATIONS: The patient is a 67-year-old male who presented to the Emergency Department with fatigue, generalized weakness and recent falls. He has also been confused at home. For the past two days, the symptoms had worsened. His significant other found him on the floor beside his bed. This gentleman does also have a history of medical noncompliance. He was found to be severely anemic with a hemoglobin of 4.3 and hematocrit of 15. He also does have a history of coronary artery disease, diabetes as well as neuropathy. He does report occasional episodes of reflux; however, not severe. He has not had a colonoscopy up to this point in his life. He does not report any hematemesis, no coffee-ground emesis as well as no red blood per rectum nor any dark tarry stools. DESCRIPTION OF PROCEDURE: The patient remained in the ICU under monitor and adequate IV pain and sedating medications given and conscious sedation. The mouthpiece was applied and the endoscope was placed in the mouth, visualizing the pharynx and hypopharyngeal region. Vocal cords, epiglottis and vallecula identified and appeared to be normal. The endoscope was then gently intubated in the esophageal opening and esophagus insufflated. Endoscope was then advanced through the first, second and third portion of the esophagus at the level of the GE junction, a reflux esophagitis grade B identified. There were no ulcers or strictures identified in this region. A biopsy was taken with forceps with visualization of good hemostasis. The endoscope was then advanced into the stomach and the endoscope retroflexed visualizing no hiatal hernia. There was a moderate severity gastritis, which appeared to be diffuse. At the antrum, there was a linear ulceration approximately 3 mm in size with an overlying fibrin clot, no active bleeding. A biopsy was taken of the linear erosion using forceps with visualization of good hemostasis. The endoscope was then advanced to the pylorus and the first and second portions of the duodenum, which appeared normal with no duodenal ulcers or any active bleeding sources identified. The endoscope was then slowly withdrawn while taking a second look and suctioning of residual air with no additional findings. The patient tolerated this portion of the procedure well. We will recommend the necessary lifestyle and diet accommodation including small and more frequent meals as well as avoidance of eating at night as well as head elevation while lying supine. He also needs to proceed with stress reduction as well as decreasing or cessation of caffeinated beverages as well as spicy, greasy and acidic foods. We will also start him on Protonix 40 mg daily. Under the same anesthesia, we then proceeded with the colonoscopy portion of the procedure. A digital rectal examination was performed, which revealed chronic stage II external and internal hemorrhoids not actively edematous nor inflamed and no bleeding. Normal sphincter tone was felt and there were no palpable masses. Prostate gland was palpable and appeared normal. The endoscope was then intubated to the anus and rectum, gently insufflated. The endoscope was then advanced to the valves of Lala of the rectum. There was a thin layer of stool throughout the entire colon; however, with suctioning and irrigation, we were able to visualize the majority of any mucosal lesions. The endoscope was then advanced through the sigmoid colon where no diverticulosis identified. The endoscope was then advanced through the remainder of the descending, transverse and ascending colon to the cecum. These segments were normal as well. There were no polyps or any neoplasms identified as well as no active bleeding sources identified as well. The endoscope was then slowly withdrawn while taking a second look and suctioning of residual air with no additional findings. The patient tolerated the procedure well. We will recommend a high-fiber diet with at least 30 grams of fiber per day as well as at least 64 fluid ounces of water daily to promote soft stools on a daily basis. He does not have any family history of colon cancer and it appears that no lesions were identified in the colon; however, there was a poor preparation. We will recommend a followup colonoscopy in 10 years; however, sooner if he becomes symptomatic. Job ID: [id number] DocumentID: [id number] Dictated Date: 05/11/2018 11:23:59 Device Sales Consultant Date: 05/11/2018 18:37:43 Dictated By: MARYLU MAHARAJ MD
[2018-05-11] MEDS: ACETAMINOPHEN 325 MG TABLET PO PRN (19:55)
[2018-05-11] MEDS: PANTOPRAZOLE 40 MG/10 ML (PROTONIX) VIAL IV SCH (20:56)
[2018-05-12] VITALS (22 sets, daily range): BP systolic 111–169; BP diastolic 63–89
[2018-05-12] MEDS: inSUlin ASPART (NovoLOG) 1 UNIT/0.01 ML (CHARGE PER UNIT) SC SCH ×4 (00:05→18:19)
[2018-05-12] MEDS: morphine INJ 4 MG/ML 1 ML (VIAL/SYRINGE) IVP PRN ×5 (01:21→19:49)
[2018-05-12 04:30] LABS: BASOPHILS % (AUTO) 0 % (0-10); EOSINOPHILS # (AUTO) 0.1 10^3/uL (0.0-0.3); EOSINOPHILS % (AUTO) 1 % (0-10); HEMATOCRIT 24 % (40-54); HEMOGLOBIN 7.1 G/DL (13.3-17.7); LYMPHOCYTES % (AUTO) 7 % (12-44); MEAN CORPUSCULAR HEMOGLOBIN 24 PG (25-34); MEAN CORPUSCULAR HGB CONC 30 G/DL (32-36); MEAN CORPUSCULAR VOLUME 79 FL (80-99); MEAN PLATELET VOLUME 10.5 FL (7.4-10.4); MONOCYTES # (AUTO) 1.5 X 10^3 (0.0-1.0); MONOCYTES % (AUTO) 10 % (0-12); NEUTROPHILS % (AUTO) 82 % (42-75); PLATELET COUNT 186 10^3/uL (130-400); RED BLOOD COUNT 3.02 10^6/uL (4.35-5.85); RED CELL DISTRIBUTION WIDTH 18.6 % (10.0-14.5); WHITE BLOOD COUNT 14.6 10^3/uL (4.3-11.0)
[2018-05-12 04:46] LABS: CALCIUM 8.5 MG/DL (8.5-10.1); CREATININE SERUM 1.67 MG/DL (0.60-1.30); MAGNESIUM 2.3 MG/DL (1.8-2.4); PHOSPHORUS 3.1 MG/DL (2.3-4.7)
[2018-05-12] MEDS: LACTATED RINGERS 1,000 ML IV SCH ×2 (06:50→20:49)
[2018-05-12] MEDS: PIPERACILLIN SODIUM/TAZOBACTAM 4.5 GM in D5W 100 ML IVPB 100 ML IV SCH ×2 (06:50→18:07)
--- NOTE | 2018-05-12 06:58 | Pulmonary Progress Note ---
Subjective Time Seen by Provider: 07:04 Subjective/Events-last exam Pt appears much improved from yesterday. last fever was around 2100 last night. Troponin is also still elevated. Cardiology is planning a heart cath. Sepsis Event Evaluation Height, Weight, BMI Height: 5'11.00" Weight: 177lbs. 3.0oz. 80.198909qn; 23.9 BMI Method:Stated Focused Exam Lactate Level 05/11/18 14:56: Lactic Acid Level 2.29*H 05/11/18 17:56: Lactic Acid Level 1.60 Exam Exam Vital Signs Date Time Temp Pulse Resp B/P (MAP) Pulse Ox O2 Delivery O2 Flow Rate FiO2 05/12/18 06:00 84 21 124/75 (91) 100 Nasal Cannula 5.00 05/12/18 05:00 77 14 113/66 (82) 100 Nasal Cannula 5.00 05/12/18 04:00 96.0 05/12/18 04:00 95 Nasal Cannula 5.00 05/12/18 04:00 86 13 123/71 (88) 100 Nasal Cannula 5.00 05/12/18 03:00 87 16 111/64 (80) 100 Nasal Cannula 5.00 05/12/18 02:00 91 21 120/70 (87) 100 Nasal Cannula 5.00 05/12/18 01:00 82 22 114/70 (85) 98 Nasal Cannula 5.00 05/12/18 00:59 94 05/12/18 00:00 95 Nasal Cannula 5.00 05/12/18 00:00 94 25 114/76 (89) 99 Nasal Cannula 5.00 05/12/18 00:00 97.5 05/11/18 23:00 90 20 119/78 (92) 97 Nasal Cannula 5.00 05/11/18 22:00 99.2 05/11/18 22:00 94 11 117/66 (83) 98 Nasal Cannula 5.00 05/11/18 21:15 99.5 05/11/18 21:00 100 20 100/54 (69) 98 Nasal Cannula 5.00 05/11/18 20:00 95 Nasal Cannula 5.00 05/11/18 20:00 103 26 131/66 (87) 98 Nasal Cannula 5.00 05/11/18 20:00 101.2 Nasal Cannula 5.00 05/11/18 19:00 107 8/8/18 19:00 106 19 94/53 (67) 94 Nasal Cannula 5.00 05/11/18 18:17 100.3 05/11/18 18:00 105 16 132/81 (98) 95 Nasal Cannula 5.00 05/11/18 17:00 113 24 135/68 (90) 95 Nasal Cannula 5.00 05/11/18 16:41 100.4 05/11/18 16:00 95 Nasal Cannula 5.00 05/11/18 16:00 123 24 143/76 (98) 94 Nasal Cannula 5.00 05/11/18 15:59 100.7 05/11/18 15:00 124 22 142/88 (106) 93 Nasal Cannula 5.00 05/11/18 14:57 100.7 05/11/18 14:34 120/75 (90) 05/11/18 14:00 116 13 150/85 (106) 93 Nasal Cannula 5.00 05/11/18 13:00 96 13 128/91 (103) 93 Nasal Cannula 5.00 05/11/18 13:00 96 05/11/18 12:25 98.4 05/11/18 12:00 98 28 118/76 (90) 98 Nasal Cannula 5.00 05/11/18 12:00 Nasal Cannula 5.00 05/11/18 11:00 85 16 116/60 (78) 97 Nasal Cannula 5.00 05/11/18 10:00 93 13 114/79 (91) 98 Room Air 05/11/18 09:15 81 97 05/11/18 09:00 93 14 123/82 (96) 98 Room Air 05/11/18 09:00 99.4 05/11/18 08:24 97 Room Air 05/11/18 08:00 Room Air 05/11/18 08:00 91 13 130/75 (93) 96 Room Air 05/11/18 07:00 96 24 125/80 (95) 98 Room Air 05/11/18 07:00 96 I & O 05/12/18 07:00 Intake Total 3130 ml Output Total 1600 ml Balance 1530 ml Height & Weight Height: 5'11.00" Weight: 177lbs. 3.0oz. 80.958589wt; 23.9 BMI Method:Stated General Appearance: WD/WN, Anxious, Severe Distress HEENT: PERRL/EOMI Neck: Full Range of Motion, Supple Respiratory: Lungs Clear, No Respiratory Distress, Decreased Breath Sounds Cardiovascular: Regular Rate, Rhythm, No Murmur Capillary Refill: Greater Than 3 Seconds Gastrointestinal: non tender, soft Extremity: Normal Capillary Refill, Other (edematous right knee upon admission ) Neurologic/Psychiatric: Normal Mood/Affect, Disoriented, Motor Weakness Skin: Cool Lymphatic: No Adenopathy Results Lab Laboratory Tests 05/10/18 12:10 05/11/18 04:25 05/11/18 14:56 05/12/18 04:22 Assessment/Plan Assessment/Plan Pneumonia with sepsis -Pt has been on Zosyn since admission -Yesterday after EGD pt started appearing more septic with fever, sinus tach and Vanco was added. Schwartz cultures were repeated. right knee hemarthrosis with possible quadriceps tendon rupture s/p aspiration per ortho -Ortho is following -MRI held yesterday secondary to pt's critical condition -Will proceed with MRI today Anemia with positive FOB s/p 4 units of PRBC S/p colonoscopy and EGD -Protonix gtt -monitor -repeat Transfuse 2 units of PRBC NSTEMI without CP -Cardiology is following s/p fall Acute on chronic renal failure dehydration hx of CAD last cath stent to LAD 02/17 CHF EF 40% -Monitor Diabetes mellitus Tobaccoism, stopped smoking around the year 1999. ESTEPHANIA MILAN DO May 12, 2018 06:58
[2018-05-12] MEDS: NOREPINEPHRINE 4 MG in NS (IVPB) 250 ML IV SCH (07:00)
[2018-05-12] MEDS: CATHETER FLUSH 10 ML SYR IV SCH ×3 (07:01→20:49)
[2018-05-12] MEDS: KCL 20 MEQ TAB (K-DUR) PO SCH (07:01)
[2018-05-12] MEDS: POTASSIUM CL 10MEQ/50ML IVPB 50 ML IV SCH (07:01)
[2018-05-12] MEDS: MAGNESIUM 1 GM/100 ML IVPB 100 ML IV SCH (07:01)
--- NOTE | 2018-05-12 07:27 | Progress Note-Hospitalist ---
Subjective HPI/CC On Admission Date Seen by Provider: May 12, 2018 Time Seen by Provider: 07:21 Pt is a 67yoCM who presented to the ER due to dizziness. He is still confused to the details of his HPI. He states he is here because he hasn't been feeling well but has difficulty describing why. He knows it's been going on for a few weeks. He complains of fatigue and feeling like his "head is in water." His friend is at bedside who states he has not been eating or drinking well for the past few weeks and has hardly been able to work. He apparently has been very dizzy and ended up falling yesterday prompting him to seek evaluation in the ER. He was found to be very anemic at 4.3 with a positive FOBT. He was admitted to the ICU and transfused 4u PRBCs. Of note his troponin was found ot be elevated at 0.8 and then went to 4.85. Subjective/Events-last exam Pt reports feeling better today. Eating breakfast. Last night developed hypotension and fever. Now resolved. Focused Exam Lactate Level 05/11/18 14:56: Lactic Acid Level 2.29*H 05/11/18 17:56: Lactic Acid Level 1.60 Objective Exam Vital Signs Vital Signs Date Time Temp Pulse Resp B/P (MAP) Pulse Ox O2 Delivery O2 Flow Rate FiO2 05/12/18 14:17 97.7 85 13 142/76 99 Nasal Cannula 2.00 05/08/18 14:32 28 Capillary Refill : Greater Than 3 Seconds General Appearance: No Apparent Distress, WD/WN Respiratory: Lungs Clear, No Respiratory Distress Cardiovascular: Regular Rate, Rhythm, No Murmur Gastrointestinal: Normal Bowel Sounds, Non Tender, Soft Extremity: Pedal Edema (right foot) Neurologic/Psychiatric: Alert, Oriented x3, Normal Mood/Affect Results/Procedures Lab Laboratory Tests 05/12/18 04:22 Patient resulted labs reviewed. Imaging: Reviewed Imaging Report Assessment/Plan Assessment and Plan Assess & Plan/Chief Complaint GI bleed Critical Care Critical Care: Critically Ill Patient Diagnosis/Problems Diagnosis/Problems (1) GI bleed Status: Acute Assessment & Plan: FOBT + s/p 5 units pRBCs Hemoglobin dropped again today- will trasnfuse 2 more units Surgery consulted- appreciate recs Negative scope Qualifiers: GI bleed type/associated pathology: unspecified gastrointestinal hemorrhage type Qualified Codes: K92.2 - Gastrointestinal hemorrhage, unspecified (2) Knee pain Status: Acute Assessment & Plan: Ortho consulted aspirated by them with bloody aspiration plan for MRI today to evaluate for quad rupture Qualifiers: Chronicity: acute Laterality: right Qualified Codes: M25.561 - Pain in right knee (3) NSTEMI (non-ST elevated myocardial infarction) Status: Acute Assessment & Plan: troponin elevated but unable to cath yet - Defer timing to cardiology Cardiology consulted, appreciate recs (4) Leukocytosis Status: Acute Assessment & Plan: Mild leukocytosis- trended up today Became hypotensive with lactic acidosis yesterday Blood cultures redrawn and antibiotics expanded to includeVanc Continue Zosyn Await cultures (5) Altered mental status Status: Resolved Assessment & Plan: Resolved Qualifiers: Altered mental status type: unspecified Qualified Codes: R41.82 - Altered mental status, unspecified (6) CKD (chronic kidney disease) Status: Chronic Assessment & Plan: At baseline Qualifiers: Chronic kidney disease stage: stage 3 (moderate) Qualified Codes: N18.3 - Chronic kidney disease, stage 3 (moderate) (7) Diabetes Status: Chronic Assessment & Plan: SSI A Qualifiers: Diabetes mellitus type: type 2 Diabetes mellitus correction insulin use: without correction use Diabetes mellitus complication status: with kidney complications Diabetes mellitus complication detail: with chronic kidney disease Chronic kidney disease stage: stage 3 (moderate) Qualified Codes: E11.22 - Type 2 diabetes mellitus with diabetic chronic kidney disease; N18.3 - Chronic kidney disease, stage 3 (moderate) (8) Hypokalemia Status: Acute Assessment & Plan: Stable (9) Hypomagnesemia Status: Acute Assessment & Plan: Resolved (10) Prophylactic measure Assessment & Plan: SCDs only NS +20KCL at 100ml/hr NPO Clinical Quality Measures DVT/VTE Risk/Contraindication: Risk Factor Score Per Nursin RFS Level Per Nursing on Admit: 2=Moderate MARY SANTA MD May 12, 2018 7:27 am
[2018-05-12] MEDS: PANTOPRAZOLE 40 MG/10 ML (PROTONIX) VIAL IV SCH ×2 (08:42→20:47)
--- NOTE | 2018-05-12 09:44 | Diagnostic Imaging Report ---
INDICATION: Anemia, gastrointestinal bleed, altered mental status. TECHNIQUE: Single view chest 3:26 AM. FINDINGS: Heart size remains enlarged. Severity of congestion perhaps slightly diminished but does persist. There is again seen scattered areas of infiltrate or edema about both lung [place], left greater than right. Overall findings however do appear to be slightly improved. IMPRESSION: 1. Slight improvement in the severity of pulmonary vascular congestion and edema. Pulmonary parenchymal densities are persisting, also slightly improved, may be reflective of asymmetric edema versus multifocal pneumonia. Dictated by: Dictated on workstation # [id number]
[2018-05-12] MEDS ORDERED: NS IV 500 ML 500 ML ONE (10:19)
--- NOTE | 2018-05-12 10:28 | Physical Therapy Daily Note ---
PT Daily Note-Current Subjective Patient declined OOB activity. Agrees to exercises. Pain Numeric Pain Scale: 10-Worst Possible Pain Location: Right Location Body Site: Knee Pain Description: Acute Mental Status Patient Orientation: Confused Attachments: Oxygen, Frost Catheter, IV Transfers Functional [place] Measure 0=Not Assessed/NA 4=Minimal Assistance 1=Total Assistance 5=Supervision or Setup 2=Maximal Assistance 6=Modified [place] 3=Moderate Assistance 7=Complete IndependenceIRFPAI Quality Coding Scale 6 Independent with activity with or without an assistive device 5 Patient requires set up or clean up by helper. Patient completes activity by themselves 4 Supervision or touching assist (CGA). [place] provide cues , steadying assist 3 The helper provides less than half the effort to complete the activity 2 The helper provides more than half the effort to complete the activity 1 Dependent. The helper does all the effort to complete an activity 7 Patient refused to complete or attempt activity 9 The patient did not perform the activity before the current illness or injury 88 Not attempted due to Medical conditions or safety concerns Weight Bearing Right Lower Extremity: Right Non Weight Bearing Left Lower Extremity: Left Full Weight Bearing Exercises Supine Ex: Ankle pumps, Quad Set, Heel Slides, Straight leg raise, Hip abd/add Supine Reps: 25 (left LE AAROM/right LE no treatment but repositioned with pillow placement) Assessment Patient to have MRI of right knee on this date. Patient continues to be very weak. PT to increase activity as tolerated by patient. PT Short Term Goals Short Term Goals Transfers (B,C,W/C) (FIM): 3 PT Halfway Goals Halfway Goals PT Charging Operator Goals Time Frame: Jun 03, 2018 Transfers (B,C,W/C) (FIM): 6 Gait (FIM): 6 Gait distance (FIM): 3=150 ft Gait Level of Assist: 6 Gait Assistive Device: FWW PT Plan Treatment/Plan Treatment Plan: Continue Plan of Care Treatment Plan: Bed Mobility, Education, Functional Activity [place], Functional Strength, Gait, Safety, Therapeutic Exercise, Transfers Treatment Duration: Jun 03, 2018 Frequency: 6 times per week Estimated Hrs Per Day: .5 hour per day Patient and/or Family Agrees t: Yes Time/GCodes Time In: 1001 Time Out: 1014 Total Billed Treatment Time: 13 Total Billed Treatment 1 visit EX 13 min MARTHA BEARD PT May 12, 2018 10:28
[2018-05-12] MEDS ORDERED: NS IV 500 ML 500 ML IV SCH (10:30)
--- NOTE | 2018-05-12 11:07 | Occupational Ther Daily Note ---
OT Current Status-Daily Note Subjective Pt alert, lying in bed. Pt agrees to therapy. Mental Status/Objective Functional [place] Measure 0=Not Assessed/NA 4=Minimal Assistance 1=Total Assistance 5=Supervision or Setup 2=Maximal Assistance 6=Modified [place] 3=Moderate Assistance 7=Complete [place] Attachments: IV, Oxygen, Telemetry Other Treatment Pt completed medium resistance theraband exercises to increase strength and activity tolerance for daily functional tasks. Horizontal shldr abduction 10x's , elbow flexion 10x's, elbow extension 10x's. Theraband left in room. Pt required verbal cue to breath through nose to keep O2 sat levels above 90. Verbal and physical cues to complete exercises with correct motion. After therapy, pt lying in bed with call light/phone in reach. All needs met in room. OT Short Term Goals Short Term Goals Time Frame: May 24, 2018 Eating(FIM): 5 Grooming(FIM): 3 Bathing(FIM): 3 Upper Body Dressing(FIM): 3 Lower Body Dressing(FIM): 3 Toileting(FIM): 3 Transfers (B,C,W/C) (FIM): 3 Toilet/Commode Transfer(FIM): 3 Additional Short Term Goals: 1-Demonstrate ADL Tasks, 2-Verbalize Understanding , 3-ImproveStrength/Orly 1=Demonstrate adherence to instructed precautions during ADL tasks. 2=Patient will verbalize/demonstrate understanding of assistive devices/ modifications for ADL. 3=Patient will improve strength/tolerance for activity to enable patient to perform ADL's. OT Lawyer Probate Goals Lawyer Probate Goals Time Frame: Jun 07, 2018 Eating (FIM): 6 Grooming(FIM): 5 Bathing(FIM): 5 Upper Body Dressing(FIM): 5 Lower Body Dressing(FIM): 5 Toileting(FIM): 5 Transfers (B,C,W/C) (FIM): 5 Toilet/Commode Transfer(FIM): 5 Shower Transfer(FIM): 4 Additional Goals: 1-Demonstrate ADL Tasks, 2-Verbalize Understanding, 3- ImproveStrength/Orly 1=Demonstrate adherence to instructed precautions during ADL tasks. 2=Patient will verbalize/demonstrate understanding of assistive devices/ modifications for ADL. 3=Patient will improve strength/tolerance for activity to enable patient to perform ADL's. OT Education/Plan Discharge Recommendations Plan/Recommendations: Continue POC Treatment Plan/Plan of Care Patient would benefit from OT for education, treatment and training to promote independence in ADL's, mobility, safety and/or upper extremity function for ADL' s. Plan of Care: ADL Retraining, Functional Mobility, UE Funct Exercise/Act Treatment Duration: Jun 07, 2018 Frequency: 5 times per week Estimated Hrs Per Day: .25 hour per day Agreement: Yes Rehab Potential: Fair Time/GCodes Start Time: 10:50 Stop Time: 11:07 Total Time Billed (hr/min): 17 Billed Treatment Time 1 visit-EX 1 (17 min) NISHA CHANCE May 12, 2018 11:07
--- NOTE | 2018-05-12 12:11 | Cardiology Progress Note ---
Subjective Date Seen by Provider: May 12, 2018 Time Seen by Provider: 12:06 Subjective/Events-last exam Patient is laying down in bed, more awake today, oriented, had episode of confusion yesterday and tachycardia with transient hypotension. Has improved today, his hemoglobin has dropped again. Review of Systems General: No Chills, No Night Sweats, No Fatigue, No Malaise, No Appetite, No Other HEENT: No Head Aches, No Visual Changes, No Eye Pain, No Ear Pain, No Dysphasia , No Sinus Congestion, No Post Nasal Drip, No Sore Throat, No Other Pulmonary: Dyspnea; No Cough, No Pleuritic Chest Pain, No Other Cardiovascular: Edema; No: Chest Pain, Palpitations, Orthopnea, Paroxysmal Noc. Dyspnea, Lt Headedness, Other Focused Exam Lactate Level 05/11/18 14:56: Lactic Acid Level 2.29*H 05/11/18 17:56: Lactic Acid Level 1.60 Objective-Cardiology Exam Last Set of Vital Signs Vital Signs 05/08/18 05/12/18 05/12/18 14:32 10:45 11:00 Temp 99.4 Pulse 90 Resp 23 B/P (MAP) 126/70 (88) Pulse Ox 97 O2 Delivery Nasal Cannula O2 Flow Rate 2.00 FiO2 28 Capillary Refill : Greater Than 3 Seconds I&O Intake and Output 05/12/18 00:00 Intake Total 4130 ml Output Total 1925 ml Balance 2205 ml Intake Oral 370 ml IV Total 3760 ml Output Urine Total 1925 ml # Bowel Movements 2 General: Alert, Oriented X3, Cooperative, Moderate Distress, Other (Confused, recovering from procedure) HEENT: Atraumatic, PERRLA Neck: Supple, No JVD, No Thyromegaly Lungs: Clear to Auscultation, Normal Air Movement Heart: Regular Rate, Normal S1, Normal S2, No Murmurs Abdomen: Normal Bowel Sounds, Soft, No Tenderness, No Hepatosplenomegaly, No Masses Extremities: No Clubbing, No Cyanosis, No Edema, Normal Pulses, No Tenderness/ Swelling Skin: No Rashes, No Breakdown, No Significant Lesion Neuro: Normal Speech, Normal Tone Psych/Mental Status: Mood NL Results Lab Laboratory Tests 05/11/18 14:56 05/12/18 04:22 A/P-Cardiology Admission Diagnosis Anemia Non-ST elevation myocardial infarction Coronary artery disease Acute renal failure Assessment/Plan Severe Anemia, status post multiple blood transfusion, endoscopy was done by Dr. Maahraj. No active bleeding was noted, some erosion was noted, had another drop in his hemoglobin, receiving 2 units of packed RBCs. Source of bleeding not identified at this point. Discussed the management plan with Dr. Frank and we will proceed with bleeding scan Non-ST elevation myocardial infarction, no active chest pain, persistent elevation in troponin, no acute changes on his EKG, having occasional atrial and ventricular premature contractions, had transient episode of tachycardia yesterday. I would recommend cardiac catheterization once his hemoglobin is stable and his bleeding has stopped. Continue with hydration and volume replacement and monitor renal function closely. Coronary artery disease history of cardiac catheterization done by Dr. Vela in February 2017 showing subtotal occlusion of the LAD treated with overlapping stents resolute 2.2530 and 2.514 mm dilated to 2.75 and 2.9 mm. Mild to moderate disease in the right coronary artery and left circumflex artery with mildly elevated left ventricular end-diastolic pressure. Has been treated medically. Status post SVT post-endoscopy with change in mental status and confusion, transient hypotension, heart rate and blood pressure are better today. Continue to monitor Right knee pain, status post aspiration with bloody fluid. Scheduled for MRI. Managed by Ortho service Acute renal failure on top of chronic kidney disease stage III, continue to monitor renal function. Receiving IV fluid and blood transfusion. Congestive heart failure, chronic compensated left ventricular systolic dysfunction with ejection fraction 40 percent, mild MR and TR, pulmonary artery pressure of 40 mmHg, moderate concentric left ventricular hypertrophy last echocardiogram was done in January 2017, I will repeat 2-D echocardiogram. Leukocytosis, elevated sedimentation rate. Blood cultures so far are negative. 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 Clinical Quality Measures DVT/VTE Risk/Contraindication: Risk Factor Score Per Nursin RFS Level Per Nursing on Admit: 2=Moderate ELY DENT MD May 12, 2018 12:11
[2018-05-12] MEDS: CYCLOBENZAPRINE 10 MG (FLEXERIL) TAB PO PRN (14:23)
[2018-05-12] MEDS ORDERED: VANCOMYCIN 1250 MG/NS 250 ML IVPB IV SCH ×2 (15:00)
[2018-05-12] MEDS ORDERED: HEParin (CENTRAL IV FLUSH) 500 UNIT/5 ML SYR ONE (15:46)
--- NOTE | 2018-05-12 16:19 | Diagnostic Imaging Report ---
EXAMINATION: Magnetic resonance imaging of the right knee without intravenous contrast DATE: May 12, 2018. COMPARISON: Right knee radiographs May 08, 2018. MRI right knee November 22, 2017. INDICATION: 67-year-old male, fall on May 06, 2018. Right knee pain and swelling. Concern for rupture of the quadriceps tendon. TECHNIQUE: Multiplanar, multisequence non contrast enhanced MR imaging was accomplished. FINDINGS: MENISCI: There is a multidirectional complex tear involving the anterior horn, body, and posterior horn of the medial meniscus. There is a predominantly longitudinal horizontal-type tear involving the anterior horn, body, and posterior horn of the lateral meniscus. LIGAMENTS AND TENDONS: The anterior cruciate ligament and posterior cruciate ligaments are intact. The medial collateral ligament is intact. The iliotibial band, mid third lateral capsular ligament, fibular collateral ligament, biceps femoris tendon and conjoined tendon are intact. The quadriceps tendon and patella ligament are intact. JOINT: There is mild generalized medial compartment cartilage thinning. There is a moderate-sized knee joint effusion with heterogeneous internal signal. There is no identified intra-articular body. There is synovitis. BONE: There is a large subcortical cyst within the posterior aspect of the lateral femoral condyle. There is subcortical cystic change in the posterior aspect of the proximal tibia near the posterior cruciate ligament insertion with subjacent ganglion cyst near the posterior capsule measuring approximately 1.3 x 0.8 cm in size. There is no acute fracture, bone contusion, or evidence of osteonecrosis. BURSAE AND SOFT TISSUES: There is diffuse generalized soft tissue edema. There is minimal fluid in the popliteal fossa without sizable Adame's cyst. There is edema in the tibialis anterior, extensor digitorum longus, and peroneus longus muscles which may potentially reflect low-grade muscle strains or muscle contusion. Early denervation-related signal changes is a differential diagnostic consideration. There is also low-level edema in the popliteus muscle and medial head of gastrocnemius muscle which may potentially reflect low-grade muscle strain or early denervation-related signal changes. There is also low-level edema in the musculature visualized above the level of the knee with same differential diagnostic considerations. IMPRESSION: 1. Tears of both the medial and lateral meniscus as described above. 2. Intact anterior and posterior cruciate ligaments. Additional ligaments and tendons are intact. 3. Complicated moderate-sized knee joint effusion with synovitis. Mild thinning of the medial compartment cartilage. 4. No acute fracture or bone contusion. 5. Multifocal edema within the visualized musculature which may reflect multifocal low-grade muscle strains, muscle contusion, and/or early denervation-related signal changes. Dictated by: Dictated on workstation # [id number]
[2018-05-12] MEDS: DILTIAZEM INJECTION 125 MG in D5W 100 ML IVPB 100 ML IV SCH (17:25)
--- NOTE | 2018-05-12 18:26 | Progress Note (SOAP) ---
Subjective Date Seen by Provider: May 12, 2018 Time Seen by Provider: 18:00 Subjective/Events-last exam decreased Hb 2g/dL overnight however no signs of GI clinical bleed. EGD and Colonoscopy done yesterday and did not reveal any bleeding sources. RBC scan just completed and awaiting interpretation. Focused Exam Lactate Level 05/11/18 14:56: Lactic Acid Level 2.29*H 05/11/18 17:56: Lactic Acid Level 1.60 Objective Exam Vital Signs Date Time Temp Pulse Resp B/P (MAP) Pulse Ox O2 Delivery O2 Flow Rate FiO2 05/12/18 16:20 97 Nasal Cannula 2.00 05/12/18 16:00 97 18 147/76 (99) 96 Nasal Cannula 2.00 05/12/18 15:00 93 17 145/84 (104) 97 Nasal Cannula 2.00 05/12/18 14:17 97.7 85 13 142/76 99 Nasal Cannula 2.00 05/12/18 14:00 92 14 140/73 (95) 97 Nasal Cannula 2.00 05/12/18 13:00 90 05/12/18 13:00 90 15 141/77 (98) 98 Nasal Cannula 2.00 05/12/18 12:45 98.4 82 24 139/84 98 Nasal Cannula 2.00 05/12/18 12:30 95 Nasal Cannula 2.00 05/12/18 12:15 98.5 82 24 142/88 94 Nasal Cannula 2.00 05/12/18 12:00 91 13 141/69 (93) 97 Nasal Cannula 2.00 05/12/18 11:00 90 23 126/70 (88) 97 Nasal Cannula 2.00 05/12/18 10:45 99.4 64 17 145/69 95 Nasal Cannula 2.00 05/12/18 10:24 99.4 76 10 116/63 97 Nasal Cannula 2.00 05/12/18 10:00 85 26 116/63 (80) 99 Nasal Cannula 2.00 05/12/18 09:20 2.00 05/12/18 09:00 91 29 Nasal Cannula 4.00 05/12/18 08:42 95 Nasal Cannula 3.00 05/12/18 08:30 3.00 05/12/18 08:05 97.8 Nasal Cannula 4.00 05/12/18 08:00 91 20 124/68 (86) Nasal Cannula 4.00 05/12/18 07:00 89 05/12/18 07:00 89 18 128/81 (97) 99 Nasal Cannula 5.00 05/12/18 06:00 84 21 124/75 (91) 100 Nasal Cannula 5.00 05/12/18 05:00 77 14 113/66 (82) 100 Nasal Cannula 5.00 05/12/18 04:00 96.0 05/12/18 04:00 95 Nasal Cannula 5.00 05/12/18 04:00 86 13 123/71 (88) 100 Nasal Cannula 5.00 05/12/18 03:00 87 16 111/64 (80) 100 Nasal Cannula 5.00 05/12/18 02:00 91 21 120/70 (87) 100 Nasal Cannula 5.00 05/12/18 01:00 82 22 114/70 (85) 98 Nasal Cannula 5.00 05/12/18 00:59 94 05/12/18 00:00 95 Nasal Cannula 5.00 05/12/18 00:00 94 25 114/76 (89) 99 Nasal Cannula 5.00 05/12/18 00:00 97.5 05/11/18 23:00 90 20 119/78 (92) 97 Nasal Cannula 5.00 05/11/18 22:00 99.2 05/11/18 22:00 94 11 117/66 (83) 98 Nasal Cannula 5.00 05/11/18 21:15 99.5 05/11/18 21:00 100 20 100/54 (69) 98 Nasal Cannula 5.00 05/11/18 20:00 95 Nasal Cannula 5.00 05/11/18 20:00 103 26 131/66 (87) 98 Nasal Cannula 5.00 05/11/18 20:00 101.2 Nasal Cannula 5.00 05/11/18 19:00 107 05/11/18 19:00 106 19 94/53 (67) 94 Nasal Cannula 5.00 I & O 05/12/18 07:00 Intake Total 3230 ml Output Total 1775 ml Balance 1455 ml Capillary Refill : Greater Than 3 Seconds General Appearance: No Apparent Distress HEENT: PERRL/EOMI Neck: Full Range of Motion Respiratory: Chest Non Tender, Normal Breath Sounds Cardiovascular: Regular Rate, Rhythm Gastrointestinal: normal bowel sounds, non tender, soft Extremity: Normal Capillary Refill Neurologic/Psychiatric: Alert, Oriented x3 Skin: Normal Color Lymphatic: No Adenopathy Results Lab Laboratory Tests 05/11/18 23:53: Glucometer 246H 05/12/18 04:22: White Blood Count 14.6H, Red Blood Count 3.02L, Hemoglobin 7.1#L, Hematocrit 24L , Mean Corpuscular Volume 79L, Mean Corpuscular Hemoglobin 24L, Mean Corpuscular Hemoglobin Concent 30L, Red Cell Distribution Width 18.6H, Platelet Count 186, Mean Platelet Volume 10.5H, Neutrophils (%) (Auto) 82H, Lymphocytes ( %) (Auto) 7L, Monocytes (%) (Auto) 10, Eosinophils (%) (Auto) 1, Basophils (%) ( Auto) 0, Neutrophils # (Auto) 12.0H, Lymphocytes # (Auto) 1.0, Monocytes # (Auto ) 1.5H, Eosinophils # (Auto) 0.1, Basophils # (Auto) 0.0, Sodium Level 140, Potassium Level 4.0, Chloride Level 108H, Carbon Dioxide Level 22, Anion Gap 10 , Blood Urea Nitrogen 27H, Creatinine 1.67H, Estimat Glomerular Filtration Rate 41, BUN/Creatinine Ratio 16, Glucose Level 171H, Calcium Level 8.5, Phosphorus Level 3.1, Magnesium Level 2.3, Troponin I 1.01*H 05/12/18 13:00: Glucometer 214H Microbiology 05/11/18 Blood Culture - Preliminary, Resulted No growth 05/11/18 Gram Stain - Final, Resulted 05/11/18 Body Fluid Culture - Preliminary, Resulted 05/08/18 MRSA Screen - Final, Complete MRSA not isolated 05/08/18 Urine Culture - Final, Complete NO GROWTH 05/11/18 Anaerobic Culture - Preliminary, Resulted Sent To [facility] Assessment/Plan Assessment/Plan Assess & Plan/Chief Complaint blood loss anemia. 2g/dL decreased overnight however no signs clinical bleeding. RCB scan completed and awaiting interpretation. continue conservative care for now and continue PRBC as needed. if continues to bleed and a potential small bowel source then capsule endoscopy another option however must be done as outpatient. in scenario of continued copious bleeding, a-gram or CT-A may help differentiate cause. if small bowel wource identified and does not stop on own, would then proceed with surgical endoscopy and possible SB resection. Clinical Quality Measures DVT/VTE Risk/Contraindication: Risk Factor Score Per Nursin RFS Level Per Nursing on Admit: 2=Moderate MARYLU DELGADO MD May 12, 2018 6:26 pm
[2018-05-12] MEDS: HYDROcodone/APAP 7.5 MG/325 MG (LORTAB, LORCET PLUS) TABLET PO PRN (18:39)
--- NOTE | 2018-05-12 18:58 | Diagnostic Imaging Report ---
REASON FOR EXAM: Anemia. Low hemoglobin. DATE: 05/12/2018 COMPARISON: None Tc-99m Tagged RBC, 27.0 mCi IV FINDINGS: An anterior abdominal angiogram was obtained, demonstrating no focal abnormalities. Next, dynamic anterior imaging of the abdomen was performed for one hour. The distribution of radiolabeled red blood cells is physiologic. No abnormal intraluminal radiotracer is identified. There is no evidence to suggest active gastrointestinal bleeding. IMPRESSION: No scintigraphic evidence of gastrointestinal bleeding. Dictated by: Dictated on workstation # [id number]
--- NOTE | 2018-05-12 22:17 | CONSULTATION REPORT ---
DATE OF SERVICE: 05/12/2018 REFERRING PHYSICIAN: Kylie Roque MD The patient is admitted to ICU bed 10. IMPRESSION: 1. A 67-year-old male admitted with increasing weakness and fall. 2. Noted to have significant anemia with hemoglobin level of 4.3 at the time of admission. Status post PRBC transfusion with a total of 7 units so far. 3. Continued drop in hemoglobin, rule out bleeding. 4. Chronic kidney disease, stage III to IV. 5. Persistent monocytosis dating back to 01/2017, rule out CMMoL. RECOMMENDATIONS: 1. Repeat CBC with manual differential count, BMP, LDH, peripheral smear in the morning. 2. Continue transfusion support to maintain hemoglobin more than 7 grams per deciliter. 3. Fecal occult blood test. If this is positive, the patient may need a capsule endoscopy to look for sites of bleeding. The patient has had an EGD and colonoscopy with no obvious sites of bleeding other than gastric erosions. 4. Because of persistent monocytosis, the patient will need a bone marrow evaluation once he is stable from this acute episode. 5. Chronic kidney disease, stage III to IV dating back to at least one year. If the hypoproliferative anemia continues after iron stores have been normalized, he may need erythropoietin stimulating agents. 6. Since he had significant transfusion, I will not obtain iron studies at this point. 7. We will follow the patient with you. BRIEF HISTORY: The patient is a 67-year-old male who was admitted to the hospital with increasing weakness and history of fall at home and he hurt his right knee. He was evaluated at the emergency room and found to have significant anemia with hemoglobin level of 4.3. He was transfused with 4 units of packed red blood cells initially followed by another unit. Hemoglobin was up to 9 grams per deciliter, but today it had dropped down to 7.1 grams per deciliter. Hence, hematology consultation was obtained for further evaluation and recommendations. PAST MEDICAL HISTORY: Significant for coronary artery disease diagnosed in early 2016 and requiring two stent placements. He was on Plavix and aspirin following this. He also has history of hypertension and hypercholesterolemia. He gives a history of gout. He has had chronic renal failure for more than a year. He has had a mass removed from his neck in 2009, which was not cancerous. The patient gave a history of tick bite with Madelia spotted fever last year and was treated with two courses of antibiotics. SOCIAL HISTORY: The patient has been living with his girlfriend for several years. He was previously and has two children. A son who lives in [place] and a daughter who lives out of town. He has a history of extensive tobacco use in the past, but quit smoking 20 years ago. He denied alcohol use or other recreational drug use. 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 He gives history of exposure to chemicals fairly significantly until about 20 years ago. FAMILY HISTORY: Unremarkable. PHYSICAL EXAMINATION: GENERAL: Today showed elderly male, well developed, well nourished, weak appearing, awake and answering questions fairly, although having some difficulty remembering details. VITAL SIGNS: Temperature was 97.7, pulse rate 85, respirations 13, blood pressure 142/76, oxygen saturation of 99% on 2 liters of oxygen by cannula. HEENT: Normocephalic with male pattern baldness, extraocular muscles intact, conjunctivae slightly pale, oral mucosa moist. NECK: Supple with no JVD. No cervical, supraclavicular or axillary lymphadenopathy palpable. CHEST: Symmetrical. LUNGS: Slightly diminished breath sounds bilaterally without wheezes or rales. CARDIOVASCULAR: Regular rate and rhythm with occasional missed beats. No definite murmurs or gallops are heard. ABDOMEN: Soft, nontender with no hepatosplenomegaly or other masses palpable. EXTREMITIES: Showed no edema or petechiae. NEUROLOGIC: Showed no focal motor deficits. LABORATORY DATA: CBC done today showed white blood cell count of 14.6, hemoglobin 7.1, MCV 79, platelet count 186,000 with a neutrophil count of 12.0, lymphocyte count 1.0 and monocyte count 1.5. CBC done at the time of admission on 05/08/2018 showed white count of 10.9, hemoglobin 4.3, MCV 73, RDW of 16.3, platelet count 305,000 with neutrophil count of 8.1, lymphocyte count 0.7 and monocyte count 2.1. Basic metabolic panel done today showed relatively normal electrolytes. BUN was 27 and creatinine 1.7 with GFR 41 mL per minute. Comprehensive metabolic panel done at the time of admission showed potassium level of 3.0. BUN was 66 and creatinine 2.49 with GFR 26 mL per minute. Lactic acid was elevated at 3.21. Glucose was elevated at 312. AST was elevated at 212 and ALT at 209 with rest of the liver function studies within normal limits. Previous lab work showed GFR below normal also. I reviewed the peripheral smear from 05/08/2018, which showed significant hypochromia and microcytosis. [id number] rouleaux formation was noted. Neutrophil count appeared normal with some toxic granulation. Monocytes appeared slightly increased in number, but morphologically appeared normal. No immature cells identified. No schistocyte noted. Platelets appeared adequate. Thank you for allowing me to participate in this patient's care. I will follow the patient with you and make appropriate recommendations. Job ID: [id number] DocumentID: [id number] Dictated Date: 05/12/2018 17:46:43 Vacuum Cleaner Assembler Date: 05/12/2018 22:17:29 Dictated By: HAN GENAO MD MTDD
[2018-05-13] VITALS (9 sets, daily range): BP systolic 119–162; BP diastolic 68–83
[2018-05-13] MEDS: inSUlin ASPART (NovoLOG) 1 UNIT/0.01 ML (CHARGE PER UNIT) SC SCH ×4 (00:10→17:56)
[2018-05-13] MEDS: PIPERACILLIN SODIUM/TAZOBACTAM 4.5 GM in D5W 100 ML IVPB 100 ML IV SCH ×3 (01:44→18:23)
[2018-05-13] MEDS: HYDROcodone/APAP 7.5 MG/325 MG (LORTAB, LORCET PLUS) TABLET PO PRN ×2 (03:16→10:39)
[2018-05-13 04:32] LABS: ABSOLUTE RETIC # 50 10e9/L (24-90); BASOPHILS % (AUTO) 0 % (0-10); EOSINOPHILS # (AUTO) 0.6 10^3/uL (0.0-0.3); EOSINOPHILS % (AUTO) 5 % (0-10); HEMATOCRIT 28 % (40-54); HEMOGLOBIN 8.9 G/DL (13.3-17.7); LYMPHOCYTES # (AUTO) 0.9 X 10^3 (1.0-4.0); LYMPHOCYTES % (AUTO) 7 % (12-44); MEAN CORPUSCULAR HEMOGLOBIN 25 PG (25-34); MEAN CORPUSCULAR HGB CONC 32 G/DL (32-36); MEAN CORPUSCULAR VOLUME 79 FL (80-99); MEAN PLATELET VOLUME 11.1 FL (7.4-10.4); MONOCYTES # (AUTO) 1.1 X 10^3 (0.0-1.0); MONOCYTES % (AUTO) 9 % (0-12); NEUTROPHILS # (AUTO) 9.4 X 10^3 (1.8-7.8); NEUTROPHILS % (AUTO) 79 % (42-75); PLATELET COUNT 187 10^3/uL (130-400); RED BLOOD COUNT 3.55 10^6/uL (4.35-5.85); RED CELL DISTRIBUTION WIDTH 18.3 % (10.0-14.5); WHITE BLOOD COUNT 11.9 10^3/uL (4.3-11.0)
[2018-05-13 04:52] LABS: ALBUMIN 2.8 GM/DL (3.2-4.5); CALCIUM 8.8 MG/DL (8.5-10.1); CREATININE SERUM 1.54 MG/DL (0.60-1.30); PHOSPHORUS 2.3 MG/DL (2.3-4.7); POTASSIUM 3.5 MMOL/L (3.6-5.0); TOTAL PROTEIN 5.7 GM/DL (6.4-8.2)
[2018-05-13 04:58] LABS: BAND NEUTROPHILS 3 %; BASOPHILS % (MANUAL) 1 %; HYPOCHROMASIA MODERATE; LYMPHOCYTES % (MANUAL) 10 %; MONOCYTES % (MANUAL) 7 %; NEUTROPHILS % (MANUAL) 79 %
[2018-05-13 04:59] LABS: ANISOCYTOSIS SLIGHT; ELLIPT/OVALOCYTES SLIGHT; POIKILOCYTOSIS MODERATE; TEAR DROP CELLS SLIGHT
[2018-05-13] MEDS: CATHETER FLUSH 10 ML SYR IV SCH ×3 (06:11→20:41)
[2018-05-13] MEDS: LACTATED RINGERS 1,000 ML IV SCH (06:11)
--- NOTE | 2018-05-13 07:20 | Pulmonary Progress Note ---
Subjective Time Seen by Provider: 07:20 Subjective/Events-last exam Pt appears to be doing better today. Sepsis Event Evaluation Height, Weight, BMI Height: 5'11.00" Weight: 186lbs. 6.0oz. [id number]; 23.9 BMI Method:Stated Focused Exam Lactate Level 05/11/18 14:56: Lactic Acid Level 2.29*H 05/11/18 17:56: Lactic Acid Level 1.60 Exam Exam Vital Signs Date Time Temp Pulse Resp B/P (MAP) Pulse Ox O2 Delivery O2 Flow Rate FiO2 05/13/18 07:04 92 Nasal Cannula 2.00 05/13/18 04:02 99.0 102 18 148/79 (102) 92 Nasal Cannula 2.00 05/13/18 02:48 101 05/13/18 00:00 99.4 100 18 150/80 (103) 100 Nasal Cannula 2.00 05/12/18 20:01 98.8 106 18 169/89 (115) 100 Nasal Cannula 2.00 05/12/18 19:40 100 Nasal Cannula 2.00 05/12/18 19:34 92 Nasal Cannula 2.00 05/12/18 19:00 100 05/12/18 16:20 97 Nasal Cannula 2.00 05/12/18 16:00 97 18 147/76 (99) 96 Nasal Cannula 2.00 05/12/18 15:00 93 17 145/84 (104) 97 Nasal Cannula 2.00 05/12/18 14:17 97.7 85 13 142/76 99 Nasal Cannula 2.00 05/12/18 14:00 92 14 140/73 (95) 97 Nasal Cannula 2.00 05/12/18 13:00 90 05/12/18 13:00 90 15 141/77 (98) 98 Nasal Cannula 2.00 05/12/18 12:45 98.4 82 24 139/84 98 Nasal Cannula 2.00 05/12/18 12:30 95 Nasal Cannula 2.00 05/12/18 12:15 98.5 82 24 142/88 94 Nasal Cannula 2.00 05/12/18 12:00 91 13 141/69 (93) 97 Nasal Cannula 2.00 05/12/18 11:00 90 23 126/70 (88) 97 Nasal Cannula 2.00 05/12/18 10:45 99.4 64 17 145/69 95 Nasal Cannula 2.00 05/12/18 10:24 99.4 76 10 116/63 97 Nasal Cannula 2.00 05/12/18 10:00 85 26 116/63 (80) 99 Nasal Cannula 2.00 05/12/18 09:20 2.00 05/12/18 09:00 91 29 Nasal Cannula 4.00 05/12/18 08:42 95 Nasal Cannula 3.00 05/12/18 08:30 3.00 05/12/18 08:05 97.8 Nasal Cannula 4.00 05/12/18 08:00 91 20 124/68 (86) Nasal Cannula 4.00 I & O 05/13/18 07:00 Intake Total 3125 ml Output Total 1450 ml Balance 1675 ml Height & Weight Height: 5'11.00" Weight: 186lbs. 6.0oz. 84.065407ib; 23.9 BMI Method:Stated General Appearance: No Apparent Distress HEENT: PERRL/EOMI Neck: Full Range of Motion Respiratory: Chest Non Tender, Normal Breath Sounds Cardiovascular: Regular Rate, Rhythm Capillary Refill: Less Than 3 Seconds Gastrointestinal: normal bowel sounds, non tender, soft Extremity: Normal Capillary Refill Neurologic/Psychiatric: Alert, Oriented x3 Skin: Normal Color Lymphatic: No Adenopathy Results Lab Laboratory Tests 05/11/18 14:56 05/12/18 04:22 05/13/18 03:48 Assessment/Plan Assessment/Plan Pneumonia with sepsis Continue Zosyn, vanco right knee hemarthrosis -Ortho is following -MRI reviewed Anemia with positive FOB s/p 4 units of PRBC S/p colonoscopy and EGD -Protonix gtt -monitor -s/p Transfuse 2 units of PRBC NSTEMI without CP -Cardiology is following -Will need cath however on hold for right now secondary to clinical status s/p fall Acute on chronic renal failure dehydration hx of CAD last cath stent to LAD 02/17 CHF EF 40% -Monitor Diabetes mellitus Tobaccoism, stopped smoking around the year 1999. ESTEPHANIA MILAN DO May 13, 2018 07:20
--- NOTE | 2018-05-13 08:49 | Diagnostic Imaging Report ---
INDICATION: Anemia, altered mental status, gastrointestinal bleed.. TECHNIQUE: Single view chest 2:54 AM. CORRELATION STUDY: 05/12/2018 FINDINGS: Cardiac enlargement persisting. Increased severity of pulmonary vascular congestion and perihilar edema. Component of interstitial edema also appears to be present. Slightly more focal consolidated appearance about the left mid as well as right lower lung monreal appears increased. IMPRESSION: 1. Worsening features of fluid overload. Increasing perihilar edema. 2. Increasing areas of patchy density about the left mid and right lower lung field could be reflective of worsening edema versus a superimposed infiltrate. Dictated by: Dictated on workstation # [id number]
[2018-05-13] MEDS: PANTOPRAZOLE 40 MG/10 ML (PROTONIX) VIAL IV SCH ×2 (08:58→20:41)
[2018-05-13] MEDS: POTASSIUM CL 10MEQ/50ML IVPB 50 ML IV SCH ×4 (08:58→13:16)
--- NOTE | 2018-05-13 09:17 | Cardiology Progress Note ---
Subjective Date Seen by Provider: May 13, 2018 Time Seen by Provider: 09:00 Subjective/Events-last exam Patient is sitting in bed, feeling better today, no chest pain or shortness of breath, mental status is better Review of Systems General: No Chills, No Night Sweats; Fatigue, Malaise; No Appetite, No Other HEENT: No Head Aches, No Visual Changes, No Eye Pain, No Ear Pain, No Dysphasia , No Sinus Congestion, No Post Nasal Drip, No Sore Throat, No Other Pulmonary: No Dyspnea, No Cough, No Pleuritic Chest Pain, No Other Cardiovascular: No: Chest Pain, Palpitations, Orthopnea, Paroxysmal Noc. Dyspnea, Edema, Lt Headedness, Other Focused Exam Lactate Level 05/11/18 14:56: Lactic Acid Level 2.29*H 05/11/18 17:56: Lactic Acid Level 1.60 Objective-Cardiology Exam Last Set of Vital Signs Vital Signs 05/08/18 05/13/18 05/13/18 14:32 07:50 08:00 Temp 97.4 Pulse 91 Resp 20 B/P (MAP) 124/68 (86) Pulse Ox 94 O2 Delivery Nasal Cannula O2 Flow Rate 2.00 FiO2 28 Capillary Refill : Less Than 3 Seconds I&O Intake and Output 05/12/18 23:59 Intake Total 2060 ml Output Total 1450 ml Balance 610 ml Intake Oral 1400 ml IV Total 660 ml Output Urine Total 1450 ml General: Alert, Oriented X3, Cooperative, Mild Distress, Other (Confused, recovering from procedure) HEENT: Atraumatic, PERRLA, EOMI Neck: Supple, No JVD, No Thyromegaly Lungs: Clear to Auscultation, Normal Air Movement Heart: Regular Rate, Normal S1, Normal S2, No Murmurs Abdomen: Normal Bowel Sounds, Soft, No Tenderness, No Hepatosplenomegaly, No Masses Extremities: No Clubbing, No Cyanosis, No Edema, Normal Pulses, No Tenderness/ Swelling Skin: No Rashes, No Breakdown, No Significant Lesion Neuro: Normal Speech, Normal Tone Psych/Mental Status: Mood NL Results Lab Laboratory Tests 05/13/18 03:48 A/P-Cardiology Admission Diagnosis Anemia Non-ST elevation myocardial infarction Coronary artery disease Acute renal failure Assessment/Plan Severe Anemia, status post multiple blood transfusion, endoscopy was done by Dr. Maharaj. No active bleeding was noted, some erosion was noted, another 2 units transfusion yesterday, better today, no active bleeding on scan, discussed in length with patient and Dr Hernandez management plan, recommended cardiac cath once H/H stable, Possible Wednesday unless patient started to have chest pain or ECG changes Non-ST elevation myocardial infarction, no active chest pain, persistent elevation in troponin, no acute changes on his EKG, having occasional atrial and ventricular premature contractions, had transient episode of tachycardia yesterday. I would recommend cardiac catheterization once his hemoglobin is stable and his bleeding has stopped. Continue to monitor for now Coronary artery disease history of cardiac catheterization done by Dr. Vela in February 2017 showing subtotal occlusion of the LAD treated with overlapping stents resolute 2.2530 and 2.514 mm dilated to 2.75 and 2.9 mm. Mild to moderate disease in the right coronary artery and left circumflex artery with mildly elevated left ventricular end-diastolic pressure. Has been treated medically. Status post SVT post-endoscopy with change in mental status and confusion, transient hypotension, heart rate and blood pressure are better today. Continue to monitor Right knee pain, status post aspiration with bloody fluid. MRI done showed medial and lateral meniscus tear. Managed by Ortho service Acute renal failure on top of chronic kidney disease stage III, improving slowly , continue to monitor Fluid overload, not short of breath, will use Lasix as needed Congestive heart failure, chronic compensated left ventricular systolic dysfunction with ejection fraction 40 percent, mild MR and TR, pulmonary artery pressure of 40 mmHg, moderate concentric left ventricular hypertrophy last echocardiogram was done in January 2017 Leukocytosis, elevated sedimentation rate. Blood cultures so far are negative. Patient has history of [place] spotted fever and has been treated twice in the past for it Diabetes mellitus, followed and managed by primary care physician Tobaccoism, stopped smoking around the year 1999. Clinical Quality Measures DVT/VTE Risk/Contraindication: Risk Factor Score Per Nursin RFS Level Per Nursing on Admit: 2=Moderate ELY DENT MD May 13, 2018 09:16
--- NOTE | 2018-05-13 11:55 | Progress Note (SOAP) ---
Subjective Date Seen by Provider: May 13, 2018 Time Seen by Provider: 11:30 Subjective/Events-last exam doing well. still weak and has gait dysfunction. tolerating diet and having normal BM's. Hb stable at 8.9 and RBC negative for bleed. Focused Exam Lactate Level 05/11/18 14:56: Lactic Acid Level 2.29*H 05/11/18 17:56: Lactic Acid Level 1.60 Objective Exam Vital Signs Date Time Temp Pulse Resp B/P (MAP) Pulse Ox O2 Delivery O2 Flow Rate FiO2 05/13/18 08:00 91 20 124/68 (86) Nasal Cannula 2.00 05/13/18 07:50 97.4 86 18 135/70 (91) 94 Nasal Cannula 2.00 05/13/18 07:04 92 Nasal Cannula 2.00 05/13/18 07:00 92 05/13/18 07:00 89 18 128/81 (97) 99 Nasal Cannula 2.00 05/13/18 04:02 99.0 102 18 148/79 (102) 92 Nasal Cannula 2.00 05/13/18 02:48 101 05/13/18 00:00 99.4 100 18 150/80 (103) 100 Nasal Cannula 2.00 05/12/18 20:01 98.8 106 18 169/89 (115) 100 Nasal Cannula 2.00 05/12/18 19:40 100 Nasal Cannula 2.00 05/12/18 19:34 92 Nasal Cannula 2.00 05/12/18 19:00 100 05/12/18 16:20 97 Nasal Cannula 2.00 05/12/18 16:00 97 18 147/76 (99) 96 Nasal Cannula 2.00 05/12/18 15:00 93 17 145/84 (104) 97 Nasal Cannula 2.00 05/12/18 14:17 97.7 85 13 142/76 99 Nasal Cannula 2.00 05/12/18 14:00 92 14 140/73 (95) 97 Nasal Cannula 2.00 05/12/18 13:00 90 05/12/18 13:00 90 15 141/77 (98) 98 Nasal Cannula 2.00 05/12/18 12:45 98.4 82 24 139/84 98 Nasal Cannula 2.00 05/12/18 12:30 95 Nasal Cannula 2.00 05/12/18 12:15 98.5 82 24 142/88 94 Nasal Cannula 2.00 05/12/18 12:00 91 13 141/69 (93) 97 Nasal Cannula 2.00 I & O 05/13/18 07:00 Intake Total 3125 ml Output Total 1450 ml Balance 1675 ml Capillary Refill : Less Than 3 Seconds General Appearance: No Apparent Distress HEENT: PERRL/EOMI Neck: Full Range of Motion Respiratory: Chest Non Tender, Lungs Clear, Normal Breath Sounds Cardiovascular: Regular Rate, Rhythm Gastrointestinal: normal bowel sounds, non tender, soft Extremity: Normal Capillary Refill Neurologic/Psychiatric: Alert, Oriented x3 Skin: Normal Color Lymphatic: No Adenopathy Results Lab Laboratory Tests 05/12/18 13:00: Glucometer 214H 05/12/18 18:17: Glucometer 140H 05/13/18 00:08: Glucometer 178H 05/13/18 03:48: White Blood Count 11.9H, Red Blood Count 3.55L, Hemoglobin 8.9#L, Hematocrit 28L , Mean Corpuscular Volume 79L, Mean Corpuscular Hemoglobin 25, Mean Corpuscular Hemoglobin Concent 32, Red Cell Distribution Width 18.3H, Platelet Count 187, Mean Platelet Volume 11.1H, Neutrophils (%) (Auto) 79H, Lymphocytes (%) (Auto) 7L, Monocytes (%) (Auto) 9, Eosinophils (%) (Auto) 5, Basophils (%) (Auto) 0, Neutrophils # (Auto) 9.4H, Lymphocytes # (Auto) 0.9L, Monocytes # (Auto) 1.1H, Eosinophils # (Auto) 0.6H, Basophils # (Auto) 0.0, Neutrophils % (Manual) 79, Lymphocytes % (Manual) 10, Monocytes % (Manual) 7, Basophils % (Manual) 1, Band Neutrophils 3, Hypochromasia MODERATE, Poikilocytosis MODERATE, Anisocytosis SLIGHT, Tear Drop Cells SLIGHT, Elliptocytes SLIGHT, Absolute Reticulocyte Count 50, Percent Reticulocyte Count 1.40, Sodium Level 139, Potassium Level 3.5L, Chloride Level 107, Carbon Dioxide Level 23, Anion Gap 9, Blood Urea Nitrogen 25H, Creatinine 1.54H, Estimat Glomerular Filtration Rate 45, BUN/ Creatinine Ratio 16, Glucose Level 234H, Calcium Level 8.8, Corrected Calcium 9.8, Phosphorus Level 2.3, Magnesium Level 2.0, Total Bilirubin 1.0, Aspartate Amino Transf (AST/SGOT) 22, Alanine Aminotransferase (ALT/SGPT) 36, Alkaline Phosphatase 182H, Lactate Dehydrogenase 168, Total Protein 5.7L, Albumin 2.8L 05/13/18 11:43: Glucometer 198H Microbiology 05/11/18 Blood Culture - Preliminary, Resulted No growth 05/11/18 Gram Stain - Final, Resulted 05/11/18 Body Fluid Culture - Preliminary, Resulted 05/08/18 MRSA Screen - Final, Complete MRSA not isolated 05/08/18 Urine Culture - Final, Complete NO GROWTH 05/11/18 Anaerobic Culture - Preliminary, Resulted Sent To [facility] Assessment/Plan Assessment/Plan Assess & Plan/Chief Complaint blood loss anemia. RBC scan negative and Hb stable at 8.9. still weak and has gait disturbance however improving with PT. Clinical Quality Measures DVT/VTE Risk/Contraindication: Risk Factor Score Per Nursin RFS Level Per Nursing on Admit: 2=Moderate MARYLU DELGADO MD May 13, 2018 11:55
--- NOTE | 2018-05-13 12:14 | Occupational Ther Daily Note ---
OT Current Status-Daily Note Subjective Pt alert, sitting on BSC. Pt agrees to therapy. Mental Status/Objective Patient Orientation: Person Functional [place] Measure 0=Not Assessed/NA 4=Minimal Assistance 1=Total Assistance 5=Supervision or Setup 2=Maximal Assistance 6=Modified [place] 3=Moderate Assistance 7=Complete [place] Attachments: IV, Telemetry ADL-Treatment Assist x3 to transfer from BSC to recliner. Pt dependent for toileting. Pt would hold onto BSC instead of attempting to push up with UE's. Pt unable to follow verbal directions with transfer. Pt sitting in recliner at end of treatment. Nrsg in room. All needs met. OT Short Term Goals Short Term Goals Time Frame: May 24, 2018 Eating(FIM): 5 Grooming(FIM): 3 Bathing(FIM): 3 Upper Body Dressing(FIM): 3 Lower Body Dressing(FIM): 3 Toileting(FIM): 3 Transfers (B,C,W/C) (FIM): 3 Toilet/Commode Transfer(FIM): 3 Additional Short Term Goals: 1-Demonstrate ADL Tasks, 2-Verbalize Understanding , 3-ImproveStrength/Orly 1=Demonstrate adherence to instructed precautions during ADL tasks. 2=Patient will verbalize/demonstrate understanding of assistive devices/ modifications for ADL. 3=Patient will improve strength/tolerance for activity to enable patient to perform ADL's. OT Nursing Home Goals Nursing Home Goals Time Frame: Jun 07, 2018 Eating (FIM): 6 Grooming(FIM): 5 Bathing(FIM): 5 Upper Body Dressing(FIM): 5 Lower Body Dressing(FIM): 5 Toileting(FIM): 5 Transfers (B,C,W/C) (FIM): 5 Toilet/Commode Transfer(FIM): 5 Shower Transfer(FIM): 4 Additional Goals: 1-Demonstrate ADL Tasks, 2-Verbalize Understanding, 3- ImproveStrength/Orly 1=Demonstrate adherence to instructed precautions during ADL tasks. 2=Patient will verbalize/demonstrate understanding of assistive devices/ modifications for ADL. 3=Patient will improve strength/tolerance for activity to enable patient to perform ADL's. OT Education/Plan Discharge Recommendations Plan/Recommendations: Continue POC Treatment Plan/Plan of Care Patient would benefit from OT for education, treatment and training to promote independence in ADL's, mobility, safety and/or upper extremity function for ADL' s. Plan of Care: ADL Retraining, Functional Mobility, UE Funct Exercise/Act Treatment Duration: Jun 07, 2018 Frequency: 5 times per week Estimated Hrs Per Day: .25 hour per day Agreement: Yes Rehab Potential: Fair Time/GCodes Start Time: 11:45 Stop Time: 12:08 Total Time Billed (hr/min): 23 Billed Treatment Time 1 visit-FA 2 (23 min) NISHA CHANCE May 13, 2018 12:14
--- NOTE | 2018-05-13 13:00 | Physical Therapy Daily Note ---
PT Daily Note-Current Subjective Patient is up in recliner with right knee brace in place. Pain Numeric Pain Scale: 10-Worst Possible Pain Location: Right Location Body Site: Knee Comment: FLACC Mental Status Patient Orientation: Confused Attachments: IV Transfers Functional [place] Measure 0=Not Assessed/NA 4=Minimal Assistance 1=Total Assistance 5=Supervision or Setup 2=Maximal Assistance 6=Modified [place] 3=Moderate Assistance 7=Complete IndependenceIRFPAI Quality Coding Scale 6 Independent with activity with or without an assistive device 5 Patient requires set up or clean up by helper. Patient completes activity by themselves 4 Supervision or touching assist (CGA). [place] provide cues , steadying assist 3 The helper provides less than half the effort to complete the activity 2 The helper provides more than half the effort to complete the activity 1 Dependent. The helper does all the effort to complete an activity 7 Patient refused to complete or attempt activity 9 The patient did not perform the activity before the current illness or injury 88 Not attempted due to Medical conditions or safety concerns Transfers (B, C, W/C) (FIM): 1 Scootin Sit to/from Stand: 1 dependent assist x 2 with all mobility due to patient inability to motor plan to perform tasks safely. Patient performed sit to stand x 2 sets with standing in FWW dependent assist with inability to perform by self. Weight Bearing Right Lower Extremity: Right Non Weight Bearing Left Lower Extremity: Left Full Weight Bearing Exercises Seated Therapy Exercises: Ankle pumps, Long arc quads Seated Reps: 25 (left LE only) Assessment Patient tolerates minimal activity and fatigues very quickly. PT continues to attempt to increase mobility with patient, however, patient is unable to perform this task. Dr. Maharaj in room and is aware. PT Short Term Goals Short Term Goals Transfers (B,C,W/C) (FIM): 3 PT Halfway Goals Parts Counter Associate Goals PT Parts Counter Associate Goals Time Frame: Jun 03, 2018 Transfers (B,C,W/C) (FIM): 6 Gait (FIM): 6 Gait distance (FIM): 3=150 ft Gait Level of Assist: 6 Gait Assistive Device: FWW PT Plan Treatment/Plan Treatment Plan: Continue Plan of Care Treatment Plan: Bed Mobility, Education, Functional Activity Orly, Functional Strength, Gait, Safety, Therapeutic Exercise, Transfers Treatment Duration: Jun 03, 2018 Frequency: 6 times per week Estimated Hrs Per Day: .5 hour per day Patient and/or Family Agrees t: Yes Discharge Recommendations Therapy D/C Recommendations: Acute Rehab Time/GCodes Time In: 1126 Time Out: 1140 Total Billed Treatment Time: 14 Total Billed Treatment 1 visit FA 14 min MARTHA BEARD PT May 13, 2018 13:00
[2018-05-13] MEDS ORDERED: TROUGH ORDER-PHARMACY XX NR (14:00)
[2018-05-13] MEDS ORDERED: VANCOMYCIN INJECTION 1,500 MG in NS IV 500 ML 500 ML IV SCH (15:00)
[2018-05-13] MEDS: meTOprolol SUCCINATE 100 MG (TOPROL XL) TAB PO SCH (15:36)
--- NOTE | 2018-05-13 17:51 | Oncology Progress Note ---
Subjective Date Seen by Provider: May 13, 2018 Time Seen by Provider: 17:46 Subjective/Events-last exam Patient reports feeling slightly better but is still quite weak and fatigued. He had blood in his stool about 1.5 hours prior to our visit. Otherwise no acute events. Data Review Labs Laboratory Tests 05/13/18 03:48 Laboratory Tests 05/11/18 00:00: Troponin I 1.15*H 05/11/18 04:25: White Blood Count 13.1H, Red Blood Count 3.50L, Hemoglobin 8.5L, Hematocrit 27L , Mean Corpuscular Volume 77L, Mean Corpuscular Hemoglobin 24L, Red Cell Distribution Width 18.1H, Mean Platelet Volume 10.5H, Neutrophils (%) (Auto) 80H , Lymphocytes (%) (Auto) 7L, Neutrophils # (Auto) 10.5H, Monocytes # (Auto) 1.5H , Blood Urea Nitrogen 27H, Creatinine 1.65H, Glucose Level 127H, Phosphorus Level 1.7L 05/11/18 12:24: Glucometer 175H 05/11/18 13:10: 05/11/18 14:22: Glucometer 180H 05/11/18 14:25: Arterial Blood Partial Pressure O2 63L, Arterial Blood Oxygen Saturation 91L 05/11/18 14:56: White Blood Count 13.5H, Red Blood Count 3.71L, Hemoglobin 9.0L, Hematocrit 29L , Mean Corpuscular Volume 78L, Mean Corpuscular Hemoglobin 24L, Mean Corpuscular Hemoglobin Concent 31L, Red Cell Distribution Width 18.6H, Mean Platelet Volume 11.2H, Blood Urea Nitrogen 26H, Creatinine 1.65H, Glucose Level 151H, Lactic Acid Level 2.29*H, Total Bilirubin 1.1H, Alanine Aminotransferase ( ALT/SGPT) 59H, Alkaline Phosphatase 173H, B-Type Natriuretic Peptide 1482.3H 05/11/18 15:20: Urine Specific [place] 1.015L, Urine Protein 2+H, Urine Leukocyte Esterase 1+H, Urine RBC (Auto) 3+H, Urine RBC 10-25H, Urine Mucus SMALLH 05/11/18 17:56: 05/11/18 18:10: Troponin I 0.99*H 05/11/18 18:13: Glucometer 182H 05/11/18 23:53: Glucometer 246H 05/12/18 04:22: White Blood Count 14.6H, Red Blood Count 3.02L, Hemoglobin 7.1#L, Hematocrit 24L , Mean Corpuscular Volume 79L, Mean Corpuscular Hemoglobin 24L, Mean Corpuscular Hemoglobin Concent 30L, Red Cell Distribution Width 18.6H, Mean Platelet Volume 10.5H, Neutrophils (%) (Auto) 82H, Lymphocytes (%) (Auto) 7L, Neutrophils # (Auto) 12.0H, Monocytes # (Auto) 1.5H, Chloride Level 108H, Blood Urea Nitrogen 27H, Creatinine 1.67H, Glucose Level 171H, Troponin I 1.01*H 05/12/18 13:00: Glucometer 214H 05/12/18 18:17: Glucometer 140H 05/13/18 00:08: Glucometer 178H 05/13/18 03:48: White Blood Count 11.9H, Red Blood Count 3.55L, Hemoglobin 8.9#L, Hematocrit 28L , Mean Corpuscular Volume 79L, Red Cell Distribution Width 18.3H, Mean Platelet Volume 11.1H, Neutrophils (%) (Auto) 79H, Lymphocytes (%) (Auto) 7L, Neutrophils # (Auto) 9.4H, Lymphocytes # (Auto) 0.9L, Monocytes # (Auto) 1.1H, Eosinophils # (Auto) 0.6H, Potassium Level 3.5L, Blood Urea Nitrogen 25H, Creatinine 1.54H, Glucose Level 234H, Alkaline Phosphatase 182H, Total Protein 5.7L, Albumin 2.8L 05/13/18 11:43: Glucometer 198H 05/13/18 12:05: Stool Occult Blood Immunoassay POSITIVEH 05/13/18 12:23: 05/13/18 14:17: Physical Exam Vital Signs Vital Signs - First Documented 05/08/18 05/08/18 11:30 14:32 O2 Flow Rate 2.00 FiO2 28 Capillary Refill : Less Than 3 Seconds Height, Weight, BMI Height: 5'11.00" Weight: 186lbs. 6.0oz. 84.106820ou; 23.9 BMI Method:Stated General Appearance: No Apparent Distress, WD/WN Eyes: Bilateral Eye Normal Inspection HEENT: Normal ENT Inspection; No Moist Mucous Membranes Neck: Full Range of Motion, Normal Inspection Respiratory: Chest Non Tender, Normal Breath Sounds, No Accessory Muscle Use, No Respiratory Distress Cardiovascular: Regular Rate, Rhythm Gastrointestinal: Normal Bowel Sounds, Non Tender Extremity: Normal Inspection, No Pedal Edema Neurologic/Psychiatric: Alert, Oriented x3, Normal Mood/Affect Skin: Warm/Dry Focused Exam Lactate Level 05/11/18 14:56: Lactic Acid Level 2.29*H 05/11/18 17:56: Lactic Acid Level 1.60 Impression & Plan Impression & Plan 67 yo male with weakness and falls, found to have severe anemia, leukocytosis and possible pulmonary infiltrate. Has been transfused and is being treated empirically with antibiotics. 1. Multifactorial anemia - hypoproliferative and GI loss - Inappropriate reticulocyte response suggests either bone marrow failure, nutritional deficiency, renal failure-associated epo deficiency, or all of the above. Nutritional deficiency workup deferred due to recent transfusions. - FOBT is positive although upper and lower endoscopy were negative. Capsule endoscopy may be of benefit. - Negative tagged RBC scan, ruling out internal bleeding. - Normal bilirubin, no evidence of hemolysis. - Patient reports history of persistent positive serology for [place] Spotted Fever and underwent multiple courses of antibiotics (I have not reviewed these outside records). RMSF is not often associated with anemia; when it does happen, the etiology is more often than not intravascular hemolysis , of which there is no evidence. It is more associated with thrombocytopenia. - Recommendation: capsule endoscopy, transfusion to keep hgb at least 7.0 2. Chronic monocytosis - unclear etiology. Could be underlying malignancy or a sign of chronic inflammation from a number of diseases - Will defer workup (bone marrow biopsy) to outpatient unless there is a significant decline in patient status while hospitalized. 3. Thrombocytopenia - large volume blood loss vs DIC vs ITP vs marrow failure - Recommendation - given possible active bleed, transfuse to keep platelets >20, 000/ul. If no bleeding, transfuse to keep platelets >10,000/ul Clinical Quality Measures DVT/VTE Risk/Contraindication: Risk Factor Score Per Nursin RFS Level Per Nursing on Admit: 2=Moderate SHAHIDA MART MD May 13, 2018 17:51
[2018-05-13] MEDS: CYCLOBENZAPRINE 10 MG (FLEXERIL) TAB PO PRN (20:40)
[2018-05-13] MEDS: ACETAMINOPHEN 325 MG TABLET PO PRN (20:40)
[2018-05-13] MEDS: DOCUSATE SODIUM 100 MG (COLACE) CAP PO SCH (20:41)
[2018-05-14] VITALS (7 sets, daily range): BP systolic 147–164; BP diastolic 71–83
[2018-05-14] MEDS: LACTATED RINGERS 1,000 ML IV SCH ×2 (00:48→10:48)
[2018-05-14] MEDS: inSUlin ASPART (NovoLOG) 1 UNIT/0.01 ML (CHARGE PER UNIT) SC SCH ×4 (00:49→18:07)
[2018-05-14] MEDS: PIPERACILLIN SODIUM/TAZOBACTAM 4.5 GM in D5W 100 ML IVPB 100 ML IV SCH ×3 (01:07→16:11)
[2018-05-14 05:40] LABS: BASOPHILS % (AUTO) 0 % (0-10); EOSINOPHILS # (AUTO) 0.9 10^3/uL (0.0-0.3); EOSINOPHILS % (AUTO) 8 % (0-10); HEMATOCRIT 30 % (40-54); HEMOGLOBIN 9.2 G/DL (13.3-17.7); LYMPHOCYTES # (AUTO) 0.8 X 10^3 (1.0-4.0); LYMPHOCYTES % (AUTO) 8 % (12-44); MEAN CORPUSCULAR HGB CONC 31 G/DL (32-36); MEAN CORPUSCULAR VOLUME 79 FL (80-99); MEAN PLATELET VOLUME 10.6 FL (7.4-10.4); MONOCYTES # (AUTO) 1.1 X 10^3 (0.0-1.0); MONOCYTES % (AUTO) 10 % (0-12); NEUTROPHILS # (AUTO) 8.2 X 10^3 (1.8-7.8); NEUTROPHILS % (AUTO) 74 % (42-75); PLATELET COUNT 200 10^3/uL (130-400); RED BLOOD COUNT 3.76 10^6/uL (4.35-5.85); RED CELL DISTRIBUTION WIDTH 18.7 % (10.0-14.5); WHITE BLOOD COUNT 11.1 10^3/uL (4.3-11.0)
[2018-05-14] MEDS: CATHETER FLUSH 10 ML SYR IV SCH ×3 (05:44→23:28)
[2018-05-14 05:45] LABS: MEAN CORPUSCULAR HEMOGLOBIN 24 PG (25-34)
[2018-05-14 05:59] LABS: CREATININE SERUM 1.45 MG/DL (0.60-1.30); POTASSIUM 3.4 MMOL/L (3.6-5.0)
[2018-05-14 06:00] LABS: CALCIUM 8.9 MG/DL (8.5-10.1); MAGNESIUM 2.1 MG/DL (1.8-2.4); PHOSPHORUS 2.3 MG/DL (2.3-4.7)
[2018-05-14] MEDS: morphine INJ 4 MG/ML 1 ML (VIAL/SYRINGE) IVP PRN ×2 (06:16→09:28)
--- NOTE | 2018-05-14 07:12 | Progress Note-Hospitalist ---
Subjective HPI/CC On Admission Date Seen by Provider: May 14, 2018 Time Seen by Provider: 07:07 Pt is a 67yoCM who presented to the ER due to dizziness. He is still confused to the details of his HPI. He states he is here because he hasn't been feeling well but has difficulty describing why. He knows it's been going on for a few weeks. He complains of fatigue and feeling like his "head is in water." His friend is at bedside who states he has not been eating or drinking well for the past few weeks and has hardly been able to work. He apparently has been very dizzy and ended up falling yesterday prompting him to seek evaluation in the ER. He was found to be very anemic at 4.3 with a positive FOBT. He was admitted to the ICU and transfused 4u PRBCs. Of note his troponin was found ot be elevated at 0.8 and then went to 4.85. Subjective/Events-last exam Pt reports doing well. No complaints. Would like to try to do more with PT today. Focused Exam Lactate Level 05/11/18 14:56: Lactic Acid Level 2.29*H 05/11/18 17:56: Lactic Acid Level 1.60 Objective Exam Vital Signs Vital Signs Date Time Temp Pulse Resp B/P (MAP) Pulse Ox O2 Delivery O2 Flow Rate FiO2 05/14/18 04:00 99.4 99 16 164/74 (104) 91 Room Air 05/13/18 08:30 2.00 05/08/18 14:32 28 Capillary Refill : Less Than 3 Seconds General Appearance: No Apparent Distress, WD/WN Respiratory: Lungs Clear, No Respiratory Distress Cardiovascular: Regular Rate, Rhythm, No Murmur Gastrointestinal: Normal Bowel Sounds, Non Tender, Soft Neurologic/Psychiatric: Alert, Oriented x3 Results/Procedures Lab Laboratory Tests 05/14/18 05:14 Patient resulted labs reviewed. Imaging: Reviewed Imaging Report Assessment/Plan Assessment and Plan Assess & Plan/Chief Complaint GI bleed Critical Care Critical Care: Critically Ill Patient Diagnosis/Problems Diagnosis/Problems (1) GI bleed Status: Acute Assessment & Plan: FOBT + in ER s/p 5 units pRBCs total Hemoglobin stable x2 days Surgery consulted- appreciate recs Negative scope and bleeding scan Qualifiers: GI bleed type/associated pathology: unspecified gastrointestinal hemorrhage type Qualified Codes: K92.2 - Gastrointestinal hemorrhage, unspecified (2) NSTEMI (non-ST elevated myocardial infarction) Status: Acute Assessment & Plan: troponin elevated but unable to cath yet - Defer timing to cardiology Cardiology consulted, appreciate recs (3) Knee pain Status: Acute Assessment & Plan: Ortho consulted aspirated by them with bloody aspiration MRI showed no tear Discussed with [place] ([place] for Dr Villareal) and no need for urgent surgery WBAT Qualifiers: Chronicity: acute Laterality: right Qualified Codes: M25.561 - Pain in right knee (4) Leukocytosis Status: Acute Assessment & Plan: Mild leukocytosis- trended down Continue Zosyn- DC Vanc Cultures NGTD Add probiotic (5) Altered mental status Status: Resolved Assessment & Plan: Resolved Qualifiers: Altered mental status type: unspecified Qualified Codes: R41.82 - Altered mental status, unspecified (6) CKD (chronic kidney disease) Status: Chronic Assessment & Plan: At baseline Qualifiers: Chronic kidney disease stage: stage 3 (moderate) Qualified Codes: N18.3 - Chronic kidney disease, stage 3 (moderate) (7) Diabetes Status: Chronic Assessment & Plan: SSI A Qualifiers: Diabetes mellitus type: type 2 Diabetes mellitus terminal operations manager insulin use: without terminal operations manager use Diabetes mellitus complication status: with kidney complications Diabetes mellitus complication detail: with chronic kidney disease Chronic kidney disease stage: stage 3 (moderate) Qualified Codes: E11.22 - Type 2 diabetes mellitus with diabetic chronic kidney disease; N18.3 - Chronic kidney disease, stage 3 (moderate) (8) Hypokalemia Status: Acute Assessment & Plan: Stable (9) Hypomagnesemia Status: Acute Assessment & Plan: Resolved (10) Prophylactic measure Assessment & Plan: SCDs only LR at 75ml/hr REg diet Clinical Quality Measures DVT/VTE Risk/Contraindication: Risk Factor Score Per Nursin RFS Level Per Nursing on Admit: 2=Moderate MARY SANTA MD May 14, 2018 07:12
--- NOTE | 2018-05-14 07:16 | Progress Note-Hospitalist ---
Subjective HPI/CC On Admission Date Seen by Provider: May 13, 2018 Time Seen by Provider: 07:15 Pt is a 67yoCM who presented to the ER due to dizziness. He is still confused to the details of his HPI. He states he is here because he hasn't been feeling well but has difficulty describing why. He knows it's been going on for a few weeks. He complains of fatigue and feeling like his "head is in water." His friend is at bedside who states he has not been eating or drinking well for the past few weeks and has hardly been able to work. He apparently has been very dizzy and ended up falling yesterday prompting him to seek evaluation in the ER. He was found to be very anemic at 4.3 with a positive FOBT. He was admitted to the ICU and transfused 4u PRBCs. Of note his troponin was found ot be elevated at 0.8 and then went to 4.85. Subjective/Events-last exam LATE ENTRY: DOS 05/13/18 Patient reports doing well and eating well. Discussed MRI results with patient. Focused Exam Lactate Level 05/11/18 14:56: Lactic Acid Level 2.29*H 05/11/18 17:56: Lactic Acid Level 1.60 Objective Exam Vital Signs Vital Signs Date Time Temp Pulse Resp B/P (MAP) Pulse Ox O2 Delivery O2 Flow Rate FiO2 05/14/18 04:00 99.4 99 16 164/74 (104) 91 Room Air 05/13/18 08:30 2.00 05/08/18 14:32 28 Capillary Refill : Less Than 3 Seconds General Appearance: No Apparent Distress, WD/WN Respiratory: Lungs Clear, No Respiratory Distress Cardiovascular: Regular Rate, Rhythm, No Murmur Gastrointestinal: Normal Bowel Sounds, Non Tender, Soft Extremity: Non Tender, No Calf Tenderness Neurologic/Psychiatric: Alert, Oriented x3 Results/Procedures Lab Laboratory Tests 05/14/18 05:14 Patient resulted labs reviewed. Imaging: Reviewed Imaging Report Assessment/Plan Assessment and Plan Assess & Plan/Chief Complaint GI bleed Critical Care Critical Care: Critically Ill Patient Diagnosis/Problems Diagnosis/Problems (1) GI bleed Status: Acute Assessment & Plan: FOBT + in ER s/p 5 units pRBCs total Hemoglobin stable today- trend Surgery consulted- appreciate recs Negative scope and bleeding scan Consider capsule endoscopy Heme consulted, appreciate recs Transfer out of ICU Qualifiers: GI bleed type/associated pathology: unspecified gastrointestinal hemorrhage type Qualified Codes: K92.2 - Gastrointestinal hemorrhage, unspecified (2) NSTEMI (non-ST elevated myocardial infarction) Status: Acute Assessment & Plan: troponin elevated but stable but unable to cath yet - Defer timing to cardiology Cardiology consulted, appreciate recs (3) Knee pain Status: Acute Assessment & Plan: Ortho consulted aspirated by them with bloody aspiration MRI showed no tear Discussed with [place] ([place] for Dr Villareal) and no need for urgent surgery WBAT with PT Qualifiers: Chronicity: acute Laterality: right Qualified Codes: M25.561 - Pain in right knee (4) Leukocytosis Status: Acute Assessment & Plan: Mild leukocytosis- trending down Continue Zosyn and vanc Cultures NGTD (5) Altered mental status Status: Resolved Assessment & Plan: Resolved Qualifiers: Altered mental status type: unspecified Qualified Codes: R41.82 - Altered mental status, unspecified (6) CKD (chronic kidney disease) Status: Chronic Assessment & Plan: At baseline Qualifiers: Chronic kidney disease stage: stage 3 (moderate) Qualified Codes: N18.3 - Chronic kidney disease, stage 3 (moderate) (7) Diabetes Status: Chronic Assessment & Plan: SSI A Qualifiers: Diabetes mellitus type: type 2 Diabetes mellitus [facility] insulin use: without [facility] use Diabetes mellitus complication status: with kidney complications Diabetes mellitus complication detail: with chronic kidney disease Chronic kidney disease stage: stage 3 (moderate) Qualified Codes: E11.22 - Type 2 diabetes mellitus with diabetic chronic kidney disease; N18.3 - Chronic kidney disease, stage 3 (moderate) (8) Hypokalemia Status: Acute Assessment & Plan: Stable (9) Hypomagnesemia Status: Acute Assessment & Plan: Resolved (10) Prophylactic measure Assessment & Plan: SCDs only LR at 75ml/hr REg diet Clinical Quality Measures DVT/VTE Risk/Contraindication: Risk Factor Score Per Nursin RFS Level Per Nursing on Admit: 2=Moderate MARY SANTA MD May 14, 2018 07:16
[2018-05-14] MEDS: DOCUSATE SODIUM 100 MG (COLACE) CAP PO SCH ×2 (08:43→20:13)
[2018-05-14] MEDS: PANTOPRAZOLE 40 MG/10 ML (PROTONIX) VIAL IV SCH ×2 (08:43→20:13)
--- NOTE | 2018-05-14 09:22 | Physical Therapy Daily Note ---
PT Daily Note-Current Subjective Pt reports he is starting to think more clearly. He says he has no strength or power. Rates pain 6/10. Pt somewhat confused. Answers questions appropriately 85% of the the time. Mental Status Attachments: IV Transfers Functional [place] Measure 0=Not Assessed/NA 4=Minimal Assistance 1=Total Assistance 5=Supervision or Setup 2=Maximal Assistance 6=Modified [place] 3=Moderate Assistance 7=Complete IndependenceIRFPAI Quality Coding Scale 6 Independent with activity with or without an assistive device 5 Patient requires set up or clean up by helper. Patient completes activity by themselves 4 Supervision or touching assist (CGA). [place] provide cues , steadying assist 3 The helper provides less than half the effort to complete the activity 2 The helper provides more than half the effort to complete the activity 1 Dependent. The helper does all the effort to complete an activity 7 Patient refused to complete or attempt activity 9 The patient did not perform the activity before the current illness or injury 88 Not attempted due to Medical conditions or safety concerns Transfers (B, C, W/C) (FIM): 1 Supine to/from Sit: 3 Sit to/from Stand: 1 sit to stand for bed to chair; attempt sit to stand from bedside chair x 2 with FWW but unable to generate sufficient force. Motor planning was appropriate. Weight Bearing Right Lower Extremity: Right Non Weight Bearing Left Lower Extremity: Left Full Weight Bearing Exercises Seated Therapy Exercises: Ankle pumps, Long arc quads, Hip flexion, Kicking activity Seated Reps: 10 Assessment cognition and motor planning are improving. Currently pt has insufficient strength to perform sit to stand or gait. PT Short Term Goals Short Term Goals Transfers (B,C,W/C) (FIM): 3 PT Fdc Goals Senior Manufacturing Test Engineer Goals PT Senior Manufacturing Test Engineer Goals Time Frame: Jun 03, 2018 Transfers (B,C,W/C) (FIM): 6 Gait (FIM): 6 Gait distance (FIM): 3=150 ft Gait Level of Assist: 6 Gait Assistive Device: FWW PT Plan Problem List Problem List: Activity Tolerance, Functional Strength, Safety, Balance, Gait, Transfer, Bed Mobility Treatment/Plan Treatment Plan: Continue Plan of Care Treatment Plan: Bed Mobility, Education, Functional Activity Orly, Functional Strength, Gait, Safety, Therapeutic Exercise, Transfers Treatment Duration: Jun 03, 2018 Frequency: 6 times per week Estimated Hrs Per Day: .5 hour per day Patient and/or Family Agrees t: Yes Time/GCodes Time In: 955 Time Out: 1010 Total Billed Treatment Time: 15 Total Billed Treatment visit, FA x 15 min CAMMY HUTCHISON PT May 14, 2018 09:22
--- NOTE | 2018-05-14 10:07 | Pulmonary Progress Note ---
Subjective Time Seen by Provider: 09:20 Subjective/Events-last exam SOB nonproductive cough Sepsis Event Evaluation Height, Weight, BMI Height: 5'11.00" Weight: 193lbs. 6.0oz. 87.309179tt; 23.9 BMI Method:Stated Focused Exam Lactate Level 05/11/18 14:56: Lactic Acid Level 2.29*H 05/11/18 17:56: Lactic Acid Level 1.60 Exam Exam Vital Signs Date Time Temp Pulse Resp B/P (MAP) Pulse Ox O2 Delivery O2 Flow Rate FiO2 05/14/18 07:00 99 05/14/18 04:00 99.4 99 16 164/74 (104) 91 Room Air 05/14/18 00:57 90 05/14/18 00:00 98.9 90 15 147/71 (96) 93 Room Air 05/13/18 21:34 Room Air 05/13/18 20:15 98.6 92 16 151/77 (101) 94 Room Air 05/13/18 19:20 84 05/13/18 16:15 98.0 87 20 119/71 (87) 93 Room Air 05/13/18 13:00 91 05/13/18 12:30 96.0 98 20 162/83 (109) 92 Room Air 05/13/18 11:05 Room Air I & O 05/14/18 07:00 Intake Total 1775 ml Output Total 1350 ml Balance 425 ml Height & Weight Height: 5'11.00" Weight: 193lbs. 6.0oz. 87.932080ob; 23.9 BMI Method:Stated General Appearance: No Apparent Distress, WD/WN HEENT: Normal ENT Inspection; No Moist Mucous Membranes Neck: Full Range of Motion, Normal Inspection Respiratory: Lungs Clear, No Respiratory Distress Cardiovascular: Regular Rate, Rhythm, No Murmur Capillary Refill: Less Than 3 Seconds Gastrointestinal: normal bowel sounds, non tender, soft Extremity: Non Tender, No Calf Tenderness Neurologic/Psychiatric: Alert, Oriented x3 Skin: Warm/Dry Lymphatic: No Adenopathy Results Lab Laboratory Tests 05/13/18 03:48 05/14/18 05:14 Assessment/Plan Assessment/Plan Pneumonia with sepsis Continue Zosyn, vanco right knee hemarthrosis -Ortho is following -MRI reviewed Anemia with positive FOB s/p 4 units of PRBC S/p colonoscopy and EGD -Protonix gtt -monitor -s/p Transfuse 2 units of PRBC NSTEMI without CP -Cardiology is following -Will need cath however on hold for right now secondary to clinical status s/p fall Acute on chronic renal failure dehydration hx of CAD last cath stent to LAD 02/17 CHF EF 40% -Monitor Diabetes mellitus Tobaccoism, stopped smoking around the year 1999. ESTEPHANIA MILAN DO May 14, 2018 10:07
[2018-05-14] MEDS: LACTOBACILLUS Acidoph/Bulgar (LACTINEX/FLORANEX) TAB PO SCH ×2 (10:48→16:11)
--- NOTE | 2018-05-14 15:24 | Cardiology Progress Note ---
Cardiology SOAP Progress Note Subjective: No cardiac complaints. Objective: I&O/Vital Signs 05/14/18 05/14/18 05/14/18 05/14/18 04:00 07:00 08:30 09:00 Temp 99.4 98.5 Pulse 99 99 97 Resp 16 18 B/P (MAP) 164/74 (104) 163/82 (109) Pulse Ox 91 91 O2 Delivery Room Air Room Air Room Air 05/14/18 05/14/18 12:30 13:00 Temp 99.0 Pulse 100 86 Resp 22 B/P (MAP) 147/83 (104) Pulse Ox 90 O2 Delivery Room Air 05/14/18 00:00 Intake Total 1325 ml Balance 1325 ml Weight (Pounds): 193 Weight (Ounces): 6.0 Weight (Calculated Kilograms): 87.343073 Constitutional: No appears stated age; AAO x 3; No apparent distress, No PERRL , No well-developed, No well-nourished, No other Respiratory: No accessory muscle use, No respiratory distress, No chest tender , No chest expansion is symmetric; chest is bilaterally symmetric; No lungs clear to percussion; lungs clear to auscultation; No crackles, No rhonchi, No rales, No stridor, No wheezing, No pleural rub, No other Cardiovascular: regular rate-rhythm; No irregularly irregular, No extra beats, No parasternal heave is noted, No JVD, No edema, No bradycardia, No tachycardia , No point of maximal impulse, No cardiac thrills are palpable; S1 and S2; No gallop/S3, No gallop/S4, No diastolic murmur, No systolic murmur, No friction rub, No click, No other Gastrointestional: No tender, No soft, No round, No distended, No pulsatile mass, No organomegaly, No guarding, No rebound, No tenderness, No hernia, No mass, No audible bowel sounds, No abnormal bowel sounds, No abdominal bruits, No spleenomegaly, No other Genital/Rectal: heme positive stool (stool was negative for gross blood, fecal occult test was positive.) Extremities: No normal range of motion, No non-tender, No normal inspection, No pedal edema, No calf tenderness, No normal capillary refill, No pelvis stable , No calf tenderness, No inflammation, No pedal edema, No slow capillary refill , No swelling, No other, No abrasion, No clubbing, No cyanosis, No ecchymosis, No laceration, No no lower extremity edema bilateral, No significant edema, No tenderness, No wound Neurologic/Psychiatric: no motor/sensory deficits, alert, normal mood/affect, oriented x 3 Skin: No normal color, No warm/dry, No cyanosis, No cool, No diaphoresis, No damp, No ecchymosis, No jaundice, No mottled, No pallor, No rash, No tattoos/ piercings, No ulcerations, No rash on exposed areas, No ulcerations on exposed areas, No other Results/Procedures: Labs Laboratory Tests 05/13/18 17:51: Glucometer 196H 05/14/18 01:13: Glucometer 176H 05/14/18 05:14: White Blood Count 11.1H, Red Blood Count 3.76L, Hemoglobin 9.2L, Hematocrit 30L , Mean Corpuscular Volume 79L, Mean Corpuscular Hemoglobin 24L, Mean Corpuscular Hemoglobin Concent 31L, Red Cell Distribution Width 18.7H, Platelet Count 200, Mean Platelet Volume 10.6H, Neutrophils (%) (Auto) 74, Lymphocytes (% ) (Auto) 8L, Monocytes (%) (Auto) 10, Eosinophils (%) (Auto) 8, Basophils (%) ( Auto) 0, Neutrophils # (Auto) 8.2H, Lymphocytes # (Auto) 0.8L, Monocytes # (Auto ) 1.1H, Eosinophils # (Auto) 0.9H, Basophils # (Auto) 0.0, Sodium Level 140, Potassium Level 3.4L, Chloride Level 107, Carbon Dioxide Level 23, Anion Gap 10 , Blood Urea Nitrogen 23H, Creatinine 1.45H, Estimat Glomerular Filtration Rate 48, BUN/Creatinine Ratio 16, Glucose Level 148H, Calcium Level 8.9, Phosphorus Level 2.3, Magnesium Level 2.1 05/14/18 05:37: Glucometer 152H 05/14/18 12:20: Glucometer 211H Microbiology 05/11/18 Blood Culture - Preliminary, Resulted No growth 05/11/18 Gram Stain - Final, Complete 05/11/18 Body Fluid Culture - Final, Complete No growth 05/08/18 MRSA Screen - Final, Complete MRSA not isolated 05/08/18 Urine Culture - Final, Complete NO GROWTH 05/11/18 Anaerobic Culture - Preliminary, Resulted No anaerobes isolated A/P: Assessment/Dx: Admission Diagnosis Anemia Non-ST elevation myocardial infarction Coronary artery disease Acute renal failure Plan: Assessment/Plan Severe Anemia, status post multiple blood transfusion, endoscopy was done by Dr. Maharaj. Stable. Coronary angiography on Wednesday. If patient develops chest pain over the weekend, urgent coronary angiography. Non-ST elevation myocardial infarction, no active chest pain, persistent elevation in troponin, no acute changes on his EKG, having occasional atrial and ventricular premature contractions, had transient episode of tachycardia yesterday. I would recommend cardiac catheterization once his hemoglobin is stable and his bleeding has stopped. Continue to monitor for now Coronary artery disease history of cardiac catheterization done by Dr. Vela in February 2017 showing subtotal occlusion of the LAD treated with overlapping stents resolute 2.2530 and 2.514 mm dilated to 2.75 and 2.9 mm. Mild to moderate disease in the right coronary artery and left circumflex artery with mildly elevated left ventricular end-diastolic pressure. Has been treated medically. Status post SVT post-endoscopy with change in mental status and confusion, transient hypotension, heart rate and blood pressure are better today. Continue to monitor Right knee pain, status post aspiration with bloody fluid. MRI done showed medial and lateral meniscus tear. Managed by Ortho service Acute renal failure on top of chronic kidney disease stage III, improving slowly , continue to monitor Fluid overload, not short of breath, will use Lasix as needed Congestive heart failure, chronic compensated left ventricular systolic dysfunction with ejection fraction 40 percent, mild MR and TR, pulmonary artery pressure of 40 mmHg, moderate concentric left ventricular hypertrophy last echocardiogram was done in January 2017 Leukocytosis, elevated sedimentation rate. Blood cultures so far are negative. 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 Thank you for your consultation. Please call me if you have any questions. Tim Hernandez MD, FACP, FACC, FSCAI, FHRS, CCDS Interventional Cardiology Cardiac Electrophysiology Vascular Medicine and Endovascular Interventions Focused Exam Lactate Level 05/11/18 17:56: Lactic Acid Level 1.60 Anushka HERNANDEZ MD May 14, 2018 3:24 pm
[2018-05-14] MEDS ORDERED: KCL 10 MEQ TAB (MICRO K) PO ONE (19:15)
[2018-05-14] MEDS: meTOprolol SUCCINATE 100 MG (TOPROL XL) TAB PO SCH (19:16)
[2018-05-14] MEDS: HYDROcodone/APAP 7.5 MG/325 MG (LORTAB, LORCET PLUS) TABLET PO PRN (19:49)
[2018-05-14] MEDS: CYCLOBENZAPRINE 10 MG (FLEXERIL) TAB PO PRN (19:49)
[2018-05-14] MEDS ORDERED: HALOPERIDOL 5 MG/ML (HALDOL) AMP IV ONE (21:45)
[2018-05-14] MEDS ORDERED: HALOPERIDOL 5 MG/ML (HALDOL) AMP IV PRN (22:00)
[2018-05-15] MEDS: inSUlin ASPART (NovoLOG) 1 UNIT/0.01 ML (CHARGE PER UNIT) SC SCH ×4 (02:04→18:04)
[2018-05-15] MEDS: PIPERACILLIN SODIUM/TAZOBACTAM 4.5 GM in D5W 100 ML IVPB 100 ML IV SCH ×3 (02:04→18:43)
[2018-05-15 02:08] VITALS: BP 139/65
[2018-05-15 05:55] VITALS: BP 127/65
[2018-05-15 05:56] LABS: BASOPHILS # (AUTO) 0.1 10^3/uL (0.0-0.1); BASOPHILS % (AUTO) 1 % (0-10); EOSINOPHILS # (AUTO) 0.7 10^3/uL (0.0-0.3); EOSINOPHILS % (AUTO) 9 % (0-10); HEMATOCRIT 28 % (40-54); HEMOGLOBIN 8.5 G/DL (13.3-17.7); LYMPHOCYTES # (AUTO) 1.2 X 10^3 (1.0-4.0); LYMPHOCYTES % (AUTO) 15 % (12-44); MEAN CORPUSCULAR HEMOGLOBIN 24 PG (25-34); MEAN CORPUSCULAR HGB CONC 31 G/DL (32-36); MEAN CORPUSCULAR VOLUME 79 FL (80-99); MEAN PLATELET VOLUME 10.6 FL (7.4-10.4); MONOCYTES % (AUTO) 12 % (0-12); NEUTROPHILS # (AUTO) 5.2 X 10^3 (1.8-7.8); NEUTROPHILS % (AUTO) 64 % (42-75); PLATELET COUNT 199 10^3/uL (130-400); RED BLOOD COUNT 3.53 10^6/uL (4.35-5.85); RED CELL DISTRIBUTION WIDTH 18.6 % (10.0-14.5); WHITE BLOOD COUNT 8.1 10^3/uL (4.3-11.0)
[2018-05-15] MEDS: CATHETER FLUSH 10 ML SYR IV SCH ×3 (06:06→20:33)
[2018-05-15] MEDS: LACTOBACILLUS Acidoph/Bulgar (LACTINEX/FLORANEX) TAB PO SCH ×3 (06:12→16:37)
[2018-05-15 06:29] LABS: CALCIUM 8.9 MG/DL (8.5-10.1); CREATININE SERUM 1.32 MG/DL (0.60-1.30); MAGNESIUM 1.9 MG/DL (1.8-2.4); PHOSPHORUS 2.9 MG/DL (2.3-4.7); POTASSIUM 3.3 MMOL/L (3.6-5.0)
[2018-05-15] MEDS ORDERED: PANTOPRAZOLE 40 MG (PROTONIX) TAB PO ONE (07:38)
[2018-05-15] MEDS: PANTOPRAZOLE 40 MG (PROTONIX) TAB PO SCH (07:43)
[2018-05-15] MEDS: DOCUSATE SODIUM 100 MG (COLACE) CAP PO SCH ×2 (07:43→20:33)
[2018-05-15 08:30] VITALS: BP 152/85
--- NOTE | 2018-05-15 09:35 | Pulmonary Progress Note ---
Subjective Time Seen by Provider: 09:32 Subjective/Events-last exam NO complications noted. Sepsis Event Evaluation Height, Weight, BMI Height: 5'11.00" Weight: 190lbs. 7.0oz. 86.748971ap; 23.9 BMI Method:Stated Exam Exam Vital Signs Date Time Temp Pulse Resp B/P (MAP) Pulse Ox O2 Delivery O2 Flow Rate FiO2 05/15/18 09:00 Room Air 05/15/18 08:30 96.7 90 20 152/85 (107) 94 Room Air 05/15/18 07:00 86 05/15/18 05:55 97.7 80 20 127/65 (85) 94 Room Air 05/15/18 02:08 98.2 84 18 139/65 (89) 97 Room Air 05/15/18 01:00 73 05/14/18 21:00 Room Air 05/14/18 20:00 98.3 71 18 157/74 (101) 92 Room Air 05/14/18 19:00 72 05/14/18 16:00 97.2 99 16 158/75 (102) 96 Room Air 05/14/18 13:00 86 05/14/18 12:30 99.0 100 22 147/83 (104) 90 Room Air I & O 05/15/18 07:00 Intake Total 1390 ml Output Total 2150 ml Balance -760 ml Height & Weight Height: 5'11.00" Weight: 190lbs. 7.0oz. 86.760766nm; 23.9 BMI Method:Stated General Appearance: No Apparent Distress, WD/WN HEENT: Normal ENT Inspection; No Moist Mucous Membranes Neck: Full Range of Motion, Normal Inspection Respiratory: Lungs Clear, No Respiratory Distress Cardiovascular: Regular Rate, Rhythm, No Murmur Capillary Refill: Less Than 3 Seconds Gastrointestinal: normal bowel sounds, non tender, soft Extremity: Non Tender, No Calf Tenderness Neurologic/Psychiatric: Alert, Oriented x3 Skin: Warm/Dry Lymphatic: No Adenopathy Results Lab Laboratory Tests 05/14/18 05:14 05/15/18 05:29 Assessment/Plan Assessment/Plan Pneumonia with sepsis Zosyn -Repeat CXR right knee hemarthrosis -Ortho is following -MRI reviewed Anemia with positive FOB s/p 4 units of PRBC S/p colonoscopy and EGD -Protonix gtt -monitor -s/p Transfuse 2 units of PRBC NSTEMI without CP -Cardiology is following -Will need cath however on hold for right now secondary to clinical status s/p fall Acute on chronic renal failure dehydration hx of CAD last cath stent to LAD 02/17 CHF EF 40% -Monitor Diabetes mellitus Tobaccoism, stopped smoking around the year 1999. ESTEPHANIA MILAN DO May 15, 2018 09:35
--- NOTE | 2018-05-15 10:11 | Diagnostic Imaging Report ---
INDICATION: Pulmonary edema COMPARISON: 05/13/18 FINDINGS: Single view of the chest demonstrates cardiac enlargement with persistent but decreased central vascular congestion. Questionable trace effusion seen in the left base. There is no pneumothorax or focal infiltrate. Osseous structures are age-appropriate. IMPRESSION: 1. Cardiac enlargement with persistent but decreased central vascular congestion 2. Trace effusion left base Dictated by: Dictated on workstation # [id number]
[2018-05-15] MEDS ORDERED: KCL 20 MEQ TAB (K-DUR) PO ONE (11:12)
[2018-05-15] MEDS ORDERED: KCL 20 MEQ TAB (K-DUR) PO NR (11:14)
--- NOTE | 2018-05-15 11:25 | Progress Note-Hospitalist ---
Subjective HPI/CC On Admission Date Seen by Provider: May 15, 2018 Time Seen by Provider: 11:22 Pt is a 67yoCM who presented to the ER due to dizziness. He is still confused to the details of his HPI. He states he is here because he hasn't been feeling well but has difficulty describing why. He knows it's been going on for a few weeks. He complains of fatigue and feeling like his "head is in water." His friend is at bedside who states he has not been eating or drinking well for the past few weeks and has hardly been able to work. He apparently has been very dizzy and ended up falling yesterday prompting him to seek evaluation in the ER. He was found to be very anemic at 4.3 with a positive FOBT. He was admitted to the ICU and transfused 4u PRBCs. Of note his troponin was found ot be elevated at 0.8 and then went to 4.85. Subjective/Events-last exam Pt reports feeling well. Pain improving. No complaints. Overnight had confusion - responded to 1x dose of Haldol. Objective Exam Vital Signs Vital Signs Date Time Temp Pulse Resp B/P (MAP) Pulse Ox O2 Delivery O2 Flow Rate FiO2 05/15/18 09:00 Room Air 05/15/18 08:30 96.7 90 20 152/85 (107) 94 05/13/18 08:30 2.00 Capillary Refill : Less Than 3 Seconds General Appearance: No Apparent Distress, WD/WN Respiratory: Lungs Clear, No Respiratory Distress Cardiovascular: Regular Rate, Rhythm, No Murmur Gastrointestinal: Normal Bowel Sounds, Non Tender, Soft Neurologic/Psychiatric: Alert, Oriented x3 Results/Procedures Lab Laboratory Tests 05/15/18 05:29 Patient resulted labs reviewed. Imaging: Reviewed Imaging Report Assessment/Plan Assessment and Plan Assess & Plan/Chief Complaint GI bleed Critical Care Critical Care: Critically Ill Patient Diagnosis/Problems Diagnosis/Problems (1) GI bleed Status: Acute Assessment & Plan: FOBT + in ER s/p 5 units pRBCs total Hemoglobin dropped slightly today but nor below transfusion threshold Surgery consulted- appreciate recs Negative scope and bleeding scan Consider capsule endoscopy Heme consulted, appreciate recs Qualifiers: GI bleed type/associated pathology: unspecified gastrointestinal hemorrhage type Qualified Codes: K92.2 - Gastrointestinal hemorrhage, unspecified (2) NSTEMI (non-ST elevated myocardial infarction) Status: Acute Assessment & Plan: troponin elevated but stable but unable to cath yet - Defer timing to cardiology, needs prior to discharge Cardiology consulted, appreciate recs (3) Knee pain Status: Acute Assessment & Plan: Ortho consulted aspirated by them with bloody aspiration MRI showed no tear in quadriceps tendon Discussed with [place] ([place] for Dr Villareal) and no need for urgent surgery WBAT with PT Qualifiers: Chronicity: acute Laterality: right Qualified Codes: M25.561 - Pain in right knee (4) Leukocytosis Status: Acute Assessment & Plan: Mild leukocytosis- trending down Continue Zosyn Cultures NGTD (5) Altered mental status Status: Resolved Assessment & Plan: Resolved Qualifiers: Altered mental status type: unspecified Qualified Codes: R41.82 - Altered mental status, unspecified (6) CKD (chronic kidney disease) Status: Chronic Assessment & Plan: At baseline Qualifiers: Chronic kidney disease stage: stage 3 (moderate) Qualified Codes: N18.3 - Chronic kidney disease, stage 3 (moderate) (7) Diabetes Status: Chronic Assessment & Plan: SSI A Qualifiers: Diabetes mellitus type: type 2 Diabetes mellitus skilled nursing insulin use: without skilled nursing use Diabetes mellitus complication status: with kidney complications Diabetes mellitus complication detail: with chronic kidney disease Chronic kidney disease stage: stage 3 (moderate) Qualified Codes: E11.22 - Type 2 diabetes mellitus with diabetic chronic kidney disease; N18.3 - Chronic kidney disease, stage 3 (moderate) (8) Hypokalemia Status: Acute Assessment & Plan: Stable (9) Hypomagnesemia Status: Acute Assessment & Plan: Resolved (10) Prophylactic measure Assessment & Plan: SCDs only Reg diet Clinical Quality Measures DVT/VTE Risk/Contraindication: Risk Factor Score Per Nursin RFS Level Per Nursing on Admit: 2=Moderate MARY SANTA MD May 15, 2018 11:24 am
--- NOTE | 2018-05-15 13:49 | Cardiology Progress Note ---
Cardiology SOAP Progress Note Subjective: No further chest pain. Objective: I&O/Vital Signs 05/15/18 05/15/18 05/15/18 05/15/18 02:08 05:55 07:00 08:30 Temp 98.2 97.7 96.7 Pulse 84 80 86 90 Resp 18 20 20 B/P (MAP) 139/65 (89) 127/65 (85) 152/85 (107) Pulse Ox 97 94 94 O2 Delivery Room Air Room Air Room Air 05/15/18 09:00 O2 Delivery Room Air 05/15/18 00:00 Intake Total 1340 ml Output Total 1500 ml Balance -160 ml Weight (Pounds): 190 Weight (Ounces): 7.0 Weight (Calculated Kilograms): 86.995597 Constitutional: No appears stated age; AAO x 3; No apparent distress, No PERRL , No well-developed, No well-nourished, No other Respiratory: No accessory muscle use, No respiratory distress, No chest tender , No chest expansion is symmetric; chest is bilaterally symmetric; No lungs clear to percussion; lungs clear to auscultation; No crackles, No rhonchi, No rales, No stridor, No wheezing, No pleural rub, No other Cardiovascular: regular rate-rhythm; No irregularly irregular, No extra beats, No parasternal heave is noted, No JVD, No edema, No bradycardia, No tachycardia , No point of maximal impulse, No cardiac thrills are palpable; S1 and S2; No gallop/S3, No gallop/S4, No diastolic murmur, No systolic murmur, No friction rub, No click, No other Gastrointestional: No tender, No soft, No round, No distended, No pulsatile mass, No organomegaly, No guarding, No rebound, No tenderness, No hernia, No mass, No audible bowel sounds, No abnormal bowel sounds, No abdominal bruits, No spleenomegaly, No other Genital/Rectal: heme positive stool (stool was negative for gross blood, fecal occult test was positive.) Extremities: No normal range of motion, No non-tender, No normal inspection, No pedal edema, No calf tenderness, No normal capillary refill, No pelvis stable , No calf tenderness, No inflammation, No pedal edema, No slow capillary refill , No swelling, No other, No abrasion, No clubbing, No cyanosis, No ecchymosis, No laceration, No no lower extremity edema bilateral, No significant edema, No tenderness, No wound Neurologic/Psychiatric: no motor/sensory deficits, alert, normal mood/affect, oriented x 3 Skin: No normal color, No warm/dry, No cyanosis, No cool, No diaphoresis, No damp, No ecchymosis, No jaundice, No mottled, No pallor, No rash, No tattoos/ piercings, No ulcerations, No rash on exposed areas, No ulcerations on exposed areas, No other Results/Procedures: Labs Laboratory Tests 05/14/18 18:40: Glucometer 190H 05/15/18 02:04: Glucometer 142H 05/15/18 05:29: White Blood Count 8.1, Red Blood Count 3.53L, Hemoglobin 8.5L, Hematocrit 28L, Mean Corpuscular Volume 79L, Mean Corpuscular Hemoglobin 24L, Mean Corpuscular Hemoglobin Concent 31L, Red Cell Distribution Width 18.6H, Platelet Count 199, Mean Platelet Volume 10.6H, Neutrophils (%) (Auto) 64, Lymphocytes (%) (Auto) 15 , Monocytes (%) (Auto) 12, Eosinophils (%) (Auto) 9, Basophils (%) (Auto) 1, Neutrophils # (Auto) 5.2, Lymphocytes # (Auto) 1.2, Monocytes # (Auto) 1.0, Eosinophils # (Auto) 0.7H, Basophils # (Auto) 0.1, Sodium Level 141, Potassium Level 3.3L, Chloride Level 108H, Carbon Dioxide Level 24, Anion Gap 9, Blood Urea Nitrogen 19H, Creatinine 1.32H, Estimat Glomerular Filtration Rate 54, BUN/ Creatinine Ratio 14, Glucose Level 124H, Calcium Level 8.9, Phosphorus Level 2.9 , Magnesium Level 1.9 05/15/18 05:41: Glucometer 152H 05/15/18 12:33: Glucometer 206H Microbiology 05/11/18 Blood Culture - Preliminary, Resulted No growth 05/11/18 Gram Stain - Final, Complete 05/11/18 Body Fluid Culture - Final, Complete No growth 05/08/18 MRSA Screen - Final, Complete MRSA not isolated 05/08/18 Urine Culture - Final, Complete NO GROWTH 05/11/18 Anaerobic Culture - Preliminary, Resulted No anaerobes isolated A/P: Assessment/Dx: Admission Diagnosis Anemia Non-ST elevation myocardial infarction Coronary artery disease Acute renal failure Plan: Assessment/Plan Severe Anemia, status post multiple blood transfusion, endoscopy was done by Dr. Maharaj. Demond. Coronary angiography on Wednesday. If patient develops chest pain over the weekend, urgent coronary angiography. Non-ST elevation myocardial infarction, no active chest pain, persistent elevation in troponin, no acute changes on his EKG, having occasional atrial and ventricular premature contractions, had transient episode of tachycardia yesterday. I would recommend cardiac catheterization once his hemoglobin is stable and his bleeding has stopped. Continue to monitor for now Coronary artery disease history of cardiac catheterization done by Dr. Vela in February 2017 showing subtotal occlusion of the LAD treated with overlapping stents resolute 2.2530 and 2.514 mm dilated to 2.75 and 2.9 mm. Mild to moderate disease in the right coronary artery and left circumflex artery with mildly elevated left ventricular end-diastolic pressure. Has been treated medically. Status post SVT post-endoscopy with change in mental status and confusion, transient hypotension, heart rate and blood pressure are better today. Continue to monitor Right knee pain, status post aspiration with bloody fluid. MRI done showed medial and lateral meniscus tear. Managed by Ortho service Acute renal failure on top of chronic kidney disease stage III, improving slowly , continue to monitor Fluid overload, not short of breath, will use Lasix as needed Congestive heart failure, chronic compensated left ventricular systolic dysfunction with ejection fraction 40 percent, mild MR and TR, pulmonary artery pressure of 40 mmHg, moderate concentric left ventricular hypertrophy last echocardiogram was done in January 2017 Leukocytosis, elevated sedimentation rate. Blood cultures so far are negative. Patient has history of [place] spotted fever and has been treated twice in the past for it Diabetes mellitus, followed and managed by primary care physician Tobaccoism, stopped smoking around the year 1999. Thank you for your consultation. Please call me if you have any questions. Tim Hernandez MD, FACP, FACC, FSCAI, FHRS, CCDS Interventional Cardiology Cardiac Electrophysiology Vascular Medicine and Endovascular Interventions Anushka HERNANDEZ MD May 15, 2018 1:49 pm
[2018-05-15] MEDS ORDERED: TROUGH ORDER-PHARMACY XX NR (14:00)
[2018-05-15 15:35] VITALS: BP 138/74
[2018-05-15] MEDS: BETHANECHOL 10 MG (URECHOLINE) TAB PO SCH ×2 (16:38→20:32)
[2018-05-15] MEDS ORDERED: TAMSULOSIN 0.4 MG (FLOMAX) CAP PO SCH (18:00)
[2018-05-15 19:24] VITALS: BP 155/87
[2018-05-15] MEDS: ACETAMINOPHEN 325 MG TABLET PO PRN (20:32)
[2018-05-15] MEDS: HYDROcodone/APAP 7.5 MG/325 MG (LORTAB, LORCET PLUS) TABLET PO PRN (22:03)
[2018-05-16 00:10] VITALS: BP 158/77
[2018-05-16] MEDS: inSUlin ASPART (NovoLOG) 1 UNIT/0.01 ML (CHARGE PER UNIT) SC SCH ×2 (00:19→05:41)
[2018-05-16] MEDS: PIPERACILLIN SODIUM/TAZOBACTAM 4.5 GM in D5W 100 ML IVPB 100 ML IV SCH (01:48)
[2018-05-16 04:43] VITALS: BP 165/77
[2018-05-16] MEDS: LACTOBACILLUS Acidoph/Bulgar (LACTINEX/FLORANEX) TAB PO SCH ×2 (05:23→11:17)
[2018-05-16] MEDS: PANTOPRAZOLE 40 MG (PROTONIX) TAB PO SCH (05:23)
[2018-05-16] MEDS: CATHETER FLUSH 10 ML SYR IV SCH (05:23)
[2018-05-16] MEDS: BETHANECHOL 10 MG (URECHOLINE) TAB PO SCH (05:23)
[2018-05-16 06:40] LABS: BASOPHILS # (AUTO) 0.1 10^3/uL (0.0-0.1); BASOPHILS % (AUTO) 1 % (0-10); EOSINOPHILS # (AUTO) 0.7 10^3/uL (0.0-0.3); EOSINOPHILS % (AUTO) 9 % (0-10); HEMATOCRIT 28 % (40-54); HEMOGLOBIN 8.6 G/DL (13.3-17.7); LYMPHOCYTES # (AUTO) 1.5 X 10^3 (1.0-4.0); LYMPHOCYTES % (AUTO) 20 % (12-44); MEAN CORPUSCULAR HEMOGLOBIN 24 PG (25-34); MEAN CORPUSCULAR HGB CONC 31 G/DL (32-36); MEAN CORPUSCULAR VOLUME 78 FL (80-99); MEAN PLATELET VOLUME 11.2 FL (7.4-10.4); MONOCYTES % (AUTO) 13 % (0-12); NEUTROPHILS # (AUTO) 4.5 X 10^3 (1.8-7.8); NEUTROPHILS % (AUTO) 58 % (42-75); PLATELET COUNT 266 10^3/uL (130-400); RED BLOOD COUNT 3.52 10^6/uL (4.35-5.85); RED CELL DISTRIBUTION WIDTH 18.8 % (10.0-14.5); WHITE BLOOD COUNT 7.8 10^3/uL (4.3-11.0)
[2018-05-16 06:55] LABS: CALCIUM 8.8 MG/DL (8.5-10.1); CREATININE SERUM 1.45 MG/DL (0.60-1.30); MAGNESIUM 1.7 MG/DL (1.8-2.4); PHOSPHORUS 3.1 MG/DL (2.3-4.7); POTASSIUM 3.2 MMOL/L (3.6-5.0)
[2018-05-16 08:00] VITALS: BP 155/74
--- NOTE | 2018-05-16 08:14 | Pulmonary Progress Note ---
Subjective Time Seen by Provider: 09:57 Subjective/Events-last exam PT is doing better. No complications noted. Sepsis Event Evaluation Height, Weight, BMI Height: 5'11.00" Weight: 193lbs. 7.0oz. 87.100246yf; 23.9 BMI Method:Stated Exam Exam Vital Signs Date Time Temp Pulse Resp B/P (MAP) Pulse Ox O2 Delivery O2 Flow Rate FiO2 05/16/18 07:00 78 05/16/18 04:43 97.7 75 18 165/77 (106) 93 Room Air 05/16/18 01:00 77 05/16/18 00:10 97.7 82 18 158/77 (104) 94 Room Air 05/15/18 21:00 Room Air 05/15/18 19:24 99.8 89 20 155/87 (109) 96 Room Air 05/15/18 19:00 84 05/15/18 15:35 98.9 97 18 138/74 (95) 96 Room Air 05/15/18 13:00 74 05/15/18 09:00 Room Air 05/15/18 08:30 96.7 90 20 152/85 (107) 94 Room Air I & O 05/16/18 07:00 Intake Total 1750 ml Output Total 2405 ml Balance -655 ml Height & Weight Height: 5'11.00" Weight: 193lbs. 7.0oz. 87.739463fz; 23.9 BMI Method:Stated General Appearance: No Apparent Distress, WD/WN HEENT: Normal ENT Inspection; No Moist Mucous Membranes Neck: Full Range of Motion, Normal Inspection Respiratory: Lungs Clear, No Respiratory Distress Cardiovascular: Regular Rate, Rhythm, No Murmur Capillary Refill: Less Than 3 Seconds Gastrointestinal: normal bowel sounds, non tender, soft Extremity: Non Tender, No Calf Tenderness Neurologic/Psychiatric: Alert, Oriented x3 Skin: Warm/Dry Lymphatic: No Adenopathy Results Lab Laboratory Tests 05/15/18 05:29 05/16/18 06:28 Assessment/Plan Assessment/Plan Pneumonia with sepsis - improving Zosyn- change to augmentin x 3 more days then D/c -Repeat CXR - reviewed - shows improvement right knee hemarthrosis -Ortho is following -MRI reviewed Anemia with positive FOB s/p 4 units of PRBC S/p colonoscopy and EGD -monitor NSTEMI without CP -Cardiology is following -Will need cath however on hold for right now secondary to clinical status s/p fall Acute on chronic renal failure dehydration hx of CAD last cath stent to LAD 02/17 CHF EF 40% -Monitor Diabetes mellitus Tobaccoism, stopped smoking around the year 1999. ESTEPHANIA MILAN DO May 16, 2018 08:14
[2018-05-16] MEDS ORDERED: AUGMENTIN 875 MG TAB (AMOXICILLIN/CLAVULANATE) PO SCH ×2 (08:18→17:00)
[2018-05-16] MEDS: DOCUSATE SODIUM 100 MG (COLACE) CAP PO SCH (09:02)
--- NOTE | 2018-05-16 09:41 | Cardiology Progress Note ---
Subjective Date Seen by Provider: May 16, 2018 Time Seen by Provider: 09:39 Subjective/Events-last exam Patient is laying down in bed, feeling better, denied any chest pain. No palpitation. Review of Systems General: No Chills, No Night Sweats, No Fatigue, No Malaise, No Appetite, No Other HEENT: No Head Aches, No Visual Changes, No Eye Pain, No Ear Pain, No Dysphasia , No Sinus Congestion, No Post Nasal Drip, No Sore Throat, No Other Pulmonary: No Dyspnea, No Cough, No Pleuritic Chest Pain, No Other Cardiovascular: No: Chest Pain, Palpitations, Orthopnea, Paroxysmal Noc. Dyspnea, Edema, Lt Headedness, Other Objective-Cardiology Exam Last Set of Vital Signs Vital Signs 05/13/18 05/16/18 08:30 08:00 Temp 98.0 Pulse 68 Resp 18 B/P (MAP) 155/74 (101) Pulse Ox 92 O2 Delivery Room Air O2 Flow Rate 2.00 Capillary Refill : Less Than 3 Seconds I&O Intake and Output 05/16/18 00:00 Intake Total 1800 ml Output Total 2255 ml Balance -455 ml Intake Oral 800 ml IV Total 1000 ml Output Urine Total 2255 ml Bladder Scan Volume Amount 755 ml 755 ml # Bowel Movements 3 General: Alert, Oriented X3, Cooperative, Mild Distress, Other (Confused, recovering from procedure) HEENT: Atraumatic, PERRLA, EOMI Neck: Supple, No JVD, No Thyromegaly Lungs: Clear to Auscultation, Normal Air Movement Heart: Regular Rate, Normal S1, Normal S2, No Murmurs Abdomen: Normal Bowel Sounds, Soft, No Tenderness, No Hepatosplenomegaly, No Masses Extremities: No Clubbing, No Cyanosis, No Edema, Normal Pulses, No Tenderness/ Swelling Skin: No Rashes, No Breakdown, No Significant Lesion Neuro: Normal Speech, Normal Tone Psych/Mental Status: Mood NL Results Lab Laboratory Tests 05/16/18 06:28 A/P-Cardiology Admission Diagnosis Anemia Non-ST elevation myocardial infarction Coronary artery disease Acute renal failure Assessment/Plan Severe Anemia, status post multiple blood transfusion, endoscopy was done by Dr. Maharaj. Better at this time, continue to monitor H&H. Non-ST elevation myocardial infarction, no active chest pain, persistent elevation in troponin, no acute changes on his EKG, having occasional atrial and ventricular premature contractions, had transient episode of tachycardia yesterday. I discussed the management plan with Dr. Fam, decision was made to continue with conservative management and monitor him for now. We'll consider cardiac catheterization if he becomes symptomatic otherwise I'm planning for a stress test as an outpatient Coronary artery disease history of cardiac catheterization done by Dr. Vela in February 2017 showing subtotal occlusion of the LAD treated with overlapping stents resolute 2.2530 and 2.514 mm dilated to 2.75 and 2.9 mm. Mild to moderate disease in the right coronary artery and left circumflex artery with mildly elevated left ventricular end-diastolic pressure. Has been treated medically. Status post SVT post-endoscopy with change in mental status and confusion, transient hypotension, heart rate and blood pressure are better today. Continue to monitor Right knee pain, status post aspiration with bloody fluid. MRI done showed medial and lateral meniscus tear. Managed by Ortho service Acute renal failure on top of chronic kidney disease stage III, improving slowly , continue to monitor Fluid overload, not short of breath, will use Lasix as needed Congestive heart failure, chronic compensated left ventricular systolic dysfunction with ejection fraction 40 percent, mild MR and TR, pulmonary artery pressure of 40 mmHg, moderate concentric left ventricular hypertrophy last echocardiogram was done in January 2017 Leukocytosis, elevated sedimentation rate. Blood cultures so far are negative. Patient has history of [place] spotted fever and has been treated twice in the past for it Diabetes mellitus, followed and managed by primary care physician Tobaccoism, stopped smoking around the year 1999. Okay to transfer to rehabilitation from cardiology standpoint Clinical Quality Measures DVT/VTE Risk/Contraindication: Risk Factor Score Per Nursin RFS Level Per Nursing on Admit: 2=Moderate ELY DENT MD May 16, 2018 09:41
--- NOTE | 2018-05-16 09:59 | Discharge Summary-Hospitalist ---
Diagnosis/Chief Complaint Date of Admission May 08, 2018 at 13:21 Date of Discharge Discharge Date: May 16, 2018 Admission Diagnosis GI bleed, NSTEMI Discharge Diagnosis (1) GI bleed Status: Acute Assessment & Plan: FOBT + in ER s/p 5 units pRBCs total Hemoglobin dropped slightly today but nor below transfusion threshold Surgery consulted- appreciate recs Negative scope and bleeding scan Consider capsule endoscopy Heme consulted, appreciate recs (2) NSTEMI (non-ST elevated myocardial infarction) Status: Acute Assessment & Plan: troponin elevated but stable but unable to cath yet - Defer timing to cardiology, needs prior to discharge Cardiology consulted, appreciate recs (3) Knee pain Status: Acute Assessment & Plan: Ortho consulted aspirated by them with bloody aspiration MRI showed no tear in quadriceps tendon Discussed with [place] ([place] for Dr Villareal) and no need for urgent surgery WBAT with PT (4) Leukocytosis Status: Acute Assessment & Plan: Mild leukocytosis- trending down Continue Zosyn Cultures NGTD (5) Altered mental status Status: Resolved Assessment & Plan: Resolved (6) CKD (chronic kidney disease) Status: Chronic Assessment & Plan: At baseline (7) Diabetes Status: Chronic Assessment & Plan: SSI A (8) Hypokalemia Status: Acute Assessment & Plan: Stable (9) Hypomagnesemia Status: Acute Assessment & Plan: Resolved (10) Prophylactic measure Assessment & Plan: SCDs only Reg diet Discharge Summary Discharge Physical Exam Allergies: Coded Allergies: No Known Drug Allergies (Unverified , 01/25/17) Vitals & I&Os Vital Signs Date Time Temp Pulse Resp B/P (MAP) Pulse Ox O2 Delivery O2 Flow Rate FiO2 05/16/18 08:00 98.0 68 18 155/74 (101) 92 Room Air 05/13/18 08:30 2.00 General Appearance: Alert, Oriented X3, Cooperative, Other (chronically ill) Respiratory: Clear to Auscultation, Normal Air Movement Cardiovascular: Regular Rate Neuro: Normal Gait, Normal Speech, Strength at 5/5 X4 Ext Psych/Mental Status: Mental Status NL, Mood NL Hospital Course Hospital course: patient had a lengthy hospital course, most of it in the ICU for critical illness. Pt was admitted for severe anemia of 4.9 although last lab check at my office was 10 on 03/21 and stable from CRI and we discussed the need to get Colonoscopy UTD so he was scheduled for regular f/u. Pt began feeling dizzy and had a syncopal episode prompting ER visit finding the patient to have Hgb of 4.9 so he was placed in the ICU found to have elevated troponin and Cardiology was consulted and patient was found to just have an ischemic event from the hypotension along with severe anemia so cardiac catheterization will not be required to further risk stratify. Patient was placed on empiric coverage for pneumonia with Zosyn and continued on Augmentin oral antibiotic transition. He required 7 units of packed red blood cells and EGD and colonoscopy didn't show a confirmatory source of the blood loss so hematology was consulted workup is still pending but was recommended hemoglobin remained above 7.0 but likely the chronic renal insufficiency and other comorbidities gave rise to chronic anemia of chronic illness and ultimately became life- threatening anemia. 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 Urinary retention has required in and out catheterizations so urology is consulted patient will remain on Flomax and Urecholine in the meantime. Pt reluctant to go to IRF due to knee pain so PT was updated and will be careful with his knees and Dr Villareal's service will be consulted again in case injection into the knee joints would help him. Augmentin will continue for 3 more days. Labs (last 24 hrs) Laboratory Tests 05/15/18 12:33: Glucometer 206H 05/15/18 14:23: Vancomycin Level Trough 7.1L 05/15/18 17:58: Glucometer 237H 05/16/18 00:18: Glucometer 143H 05/16/18 05:17: Glucometer 138H 05/16/18 06:28: White Blood Count 7.8, Red Blood Count 3.52L, Hemoglobin 8.6L, Hematocrit 28L, Mean Corpuscular Volume 78L, Mean Corpuscular Hemoglobin 24L, Mean Corpuscular Hemoglobin Concent 31L, Red Cell Distribution Width 18.8H, Platelet Count 266, Mean Platelet Volume 11.2H, Neutrophils (%) (Auto) 58, Lymphocytes (%) (Auto) 20 , Monocytes (%) (Auto) 13H, Eosinophils (%) (Auto) 9, Basophils (%) (Auto) 1, Neutrophils # (Auto) 4.5, Lymphocytes # (Auto) 1.5, Monocytes # (Auto) 1.0, Eosinophils # (Auto) 0.7H, Basophils # (Auto) 0.1, Sodium Level 140, Potassium Level 3.2L, Chloride Level 107, Carbon Dioxide Level 22, Anion Gap 11, Blood Urea Nitrogen 18, Creatinine 1.45H, Estimat Glomerular Filtration Rate 48, BUN/ Creatinine Ratio 12, Glucose Level 128H, Calcium Level 8.8, Phosphorus Level 3.1 , Magnesium Level 1.7L Microbiology 05/11/18 Blood Culture - Preliminary, Resulted No growth 05/11/18 Gram Stain - Final, Complete 05/11/18 Body Fluid Culture - Final, Complete No growth 05/08/18 MRSA Screen - Final, Complete MRSA not isolated 05/08/18 Urine Culture - Final, Complete NO GROWTH 05/11/18 Anaerobic Culture - Final, Complete No anaerobes isolated Patient resulted labs reviewed. Pending Labs Laboratory Tests 05/16/18 05:17: Glucometer 138 05/16/18 06:28: White Blood Count 7.8, Red Blood Count 3.52, Hemoglobin 8.6, Hematocrit 28, Mean Corpuscular Volume 78, Mean Corpuscular Hemoglobin 24, Mean Corpuscular Hemoglobin Concent 31, Red Cell Distribution Width 18.8, Platelet Count 266, Mean Platelet Volume 11.2, Neutrophils (%) (Auto) 58, Lymphocytes (%) (Auto) 20 , Monocytes (%) (Auto) 13, Eosinophils (%) (Auto) 9, Basophils (%) (Auto) 1, Neutrophils # (Auto) 4.5, Lymphocytes # (Auto) 1.5, Monocytes # (Auto) 1.0, Eosinophils # (Auto) 0.7, Basophils # (Auto) 0.1, Sodium Level 140, Potassium Level 3.2, Chloride Level 107, Carbon Dioxide Level 22, Anion Gap 11, Blood Urea Nitrogen 18, Creatinine 1.45, Estimat Glomerular Filtration Rate 48, BUN/ Creatinine Ratio 12, Glucose Level 128, Calcium Level 8.8, Phosphorus Level 3.1 , Magnesium Level 1.7 Imaging: Reviewed Imaging Report Discussion & Recommendations Discharge Planning: <30 minutes discharge planning Discharge Home Medications: Active Scripts Active Reported Allopurinol 300 Mg Tablet 300 Mg PO DAILY Potassium Chloride 20 Meq Tab.er.prt 20 Meq PO DAILY Metolazone 2.5 Mg Tablet 2.5 Mg PO DAILY Furosemide 40 Mg Tablet 40 Mg PO DAILY Glimepiride 4 Mg Tablet 4 Mg PO BID Plavix (Clopidogrel Bisulfate) 75 Mg Tablet 75 Mg PO DAILY Aspirin 81 Mg Tab.chew 81 Mg PO DAILY Metoprolol Succinate 100 Mg Tab.er.24h 100 Mg PO Q48H Instructions to patient/family Please see electronic discharge instructions given to patient. Clinical Quality Measures DVT/VTE Risk/Contraindication: Risk Factor Score Per Nursin RFS Level Per Nursing on Admit: 2=Moderate Problem Qualifiers (1) GI bleed: GI bleed type/associated pathology: unspecified gastrointestinal hemorrhage type Qualified Codes: K92.2 - Gastrointestinal hemorrhage, unspecified (2) Knee pain: Chronicity: acute Laterality: right Qualified Codes: M25.561 - Pain in right knee (3) Altered mental status: Altered mental status type: unspecified Qualified Codes: R41.82 - Altered mental status, unspecified (4) CKD (chronic kidney disease): Chronic kidney disease stage: stage 3 (moderate) Qualified Codes: N18.3 - Chronic kidney disease, stage 3 (moderate) (5) Diabetes: Diabetes mellitus type: type 2 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
[2018-05-16] MEDS ORDERED: ALLOPURINOL 300 MG (ZYLOPRIM) TAB PO SCH (11:00)
[2018-05-16] MEDS ORDERED: BETHANECHOL 25 MG (URECHOLINE) TAB PO SCH (11:00)
[2018-05-16] MEDS ORDERED: ASPI-999 PO (14:17)
[2018-05-16] MEDS ORDERED: METO2.5T PO (14:17)
[2018-05-16] MEDS ORDERED: POTA-51 PO (14:17)
[2018-05-16] MEDS ORDERED: CLOP75TA69 PO (14:17)
[2018-05-16] MEDS ORDERED: ALLO300T2 PO (14:17)
[2018-05-16] MEDS ORDERED: FURO40TA4 PO (14:17)
[2018-05-16] MEDS ORDERED: GLIM4TAB PO (14:17)
[2018-05-16] MEDS ORDERED: TAMSULOSIN 0.4 MG (FLOMAX) CAP PO SCH (18:00)
--- NOTE | 2018-05-18 11:12 | Physician Query Clarification ---
PQ-Link Manifestation-Etiology Admission/Discharge Admission Date: May 08, 2018 at 13:21 Discharge Date: May 16, 2018 at 11:23 The medical record reflects the following clinical scenario: History/Risk Factors: GI bleed Clinical Findings: Occult blood positive, HGB 4.3, fibrin clot noted in the antrum on EGD Treatment: Transfusion 7U RBC's Question: Can you specify if the GI bleed is due to/associated with Gastritis? If other cause please document. Please document a response below PHYSICIAN RESPONSE Manifestation due to/assoic: Yes In responding to this query, please exercise your independent professional judgment. The purpose of this communication is to more accurately reflect the complexity of your patients condition. The fact that a question is asked does not imply that any particular answer is desired or expected. Thank you for your timely response to this clarification. Requestors name: [employer] THIS PHYSICIAN QUERY FORM IS A PERMANENT PART OF THE MEDICAL RECORD YOILS MOJICA May 18, 2018 11:12 MARYLU DELGADO MD May 18, 2018 11:14
== END 2018-05-16 11:23 | DRG 377 ==
LOC: EDUNIT# 11:20 → ER 11:22 → ICU 13:21 → 4TH 05-13 09:55
PROVIDERS: ADMIT Internal Medicine; ATTEND Internal Medicine
PROC: 0S9C3ZZ Drainage of Right Knee Joint, Percutaneous Approach (ICD-10-PCS; 2018-05-11)
PROC: 0DB48ZX Excision of Esophagogastric Junction, Via Natural or Artificial Opening Endoscopic, Diagnostic (ICD-10-PCS; principal; 2018-05-11 09:38)
PROC: 0DJD8ZZ Inspection of Lower Intestinal Tract, Via Natural or Artificial Opening Endoscopic (ICD-10-PCS; 2018-05-11 09:38)
DX: K29.71 Gastritis, unspecified, with bleeding (principal); I21.4 Non-ST elevation (NSTEMI) myocardial infarction; D62 Acute posthemorrhagic anemia; N17.9 Acute kidney failure, unspecified; I11.0 Hypertensive heart disease with heart failure; I50.22 Chronic systolic (congestive) heart failure; J18.9 Pneumonia, unspecified organism; A41.9 Sepsis, unspecified organism; K21.0 Gastro-esophageal reflux disease with esophagitis; M25.061 Hemarthrosis, right knee; K64.1 Second degree hemorrhoids; I25.10 Atherosclerotic heart disease of native coronary artery without angina pectoris; R41.82 Altered mental status, unspecified; E11.22 Type 2 diabetes mellitus with diabetic chronic kidney disease; N18.3 Chronic kidney disease, stage 3 (moderate); E11.42 Type 2 diabetes mellitus with diabetic polyneuropathy; E86.0 Dehydration; E87.6 Hypokalemia; E83.42 Hypomagnesemia; M19.91 Primary osteoarthritis, unspecified site; E78.00 Pure hypercholesterolemia, unspecified; M10.9 Gout, unspecified; I44.0 Atrioventricular block, first degree; I08.1 Rheumatic disorders of both mitral and tricuspid valves; R50.84 Febrile nonhemolytic transfusion reaction; M54.9 Dorsalgia, unspecified; Z95.5 Presence of coronary angioplasty implant and graft; S89.91XA Unspecified injury of right lower leg, initial encounter; W19.XXXA Unspecified fall, initial encounter; Y92.000 Kitchen of unspecified non-institutional (private) residence as the place of occurrence of the external cause
CPT/HCPCS: 36415; 36430; 51702; 70450; 71045; 72125; 73502; 73562; 73721; 78278; 80048; 80053; 80202; 81000; 82140; 82274; 82805; 82962; 83605; 83615; 83735; 83880; 84100; 84155; 84165; 84450; 84460; 84484; 84550; 85007; 85014; 85018; 85025; 85027; 85045; 85610; 85652; 85730; 86141; 86850; 86900; 86901; 86920; 87040; 87070; 87075; 87081; 87088; 87205; 89060; 93005; 93306; 96361; 96374; 96375; 99291

== ENCOUNTER 2018-06-09 14:05 | Outpatient (RCR) | payer MEDICARE ==
[~2018-06-09 14:05] MED LIST changes: +ALLO300T2 PO; -AMLO10TA2 PO; +AMLO10TA6 PO; +BETH25TA PO; +FERR325T18 PO; +HYDR-34 PO; -LOSA25TA21 PO; +LOSA25TA6 PO; +METF-397 PO; -METF500T5 PO; +PANT40TA3 PO; +POTA20TA15 PO; +SUCR1TAB PO; +TAMS0.4C98 PO
[2018-06-09 14:25] LABS: BASOPHILS # (AUTO) 0.1 10^3/uL (0.0-0.1); BASOPHILS % (AUTO) 2 % (0-10); EOSINOPHILS # (AUTO) 0.2 10^3/uL (0.0-0.3); EOSINOPHILS % (AUTO) 4 % (0-10); HEMATOCRIT 36 % (40-54); LYMPHOCYTES # (AUTO) 1.3 X 10^3 (1.0-4.0); LYMPHOCYTES % (AUTO) 21 % (12-44); MEAN CORPUSCULAR HEMOGLOBIN 24 PG (25-34); MEAN CORPUSCULAR HGB CONC 31 G/DL (32-36); MEAN CORPUSCULAR VOLUME 78 FL (80-99); MEAN PLATELET VOLUME 11.4 FL (7.4-10.4); MONOCYTES # (AUTO) 0.8 X 10^3 (0.0-1.0); MONOCYTES % (AUTO) 13 % (0-12); NEUTROPHILS # (AUTO) 3.8 X 10^3 (1.8-7.8); NEUTROPHILS % (AUTO) 61 % (42-75); PLATELET COUNT 232 10^3/uL (130-400); RED BLOOD COUNT 4.59 10^6/uL (4.35-5.85); RED CELL DISTRIBUTION WIDTH 20.5 % (10.0-14.5); WHITE BLOOD COUNT 6.3 10^3/uL (4.3-11.0)
[2018-06-09 14:47] LABS: ALBUMIN 3.9 GM/DL (3.2-4.5); BILIRUBIN,TOTAL 0.5 MG/DL (0.1-1.0); CALCIUM 9.4 MG/DL (8.5-10.1); CREATININE SERUM 1.66 MG/DL (0.60-1.30); POTASSIUM 3.6 MMOL/L (3.6-5.0); TOTAL PROTEIN 6.8 GM/DL (6.4-8.2)
== END 2018-07-03 | disposition home or self-care (01) ==
LOC: ONC 14:05
PROVIDERS: ATTEND Internal Medicine Hematology & Oncology
DX: D50.0 Iron deficiency anemia secondary to blood loss (chronic) (principal); D47.3 Essential (hemorrhagic) thrombocythemia; I13.0 Hypertensive heart and chronic kidney disease with heart failure and stage 1 through stage 4 chronic kidney disease, or unspecified chronic kidney disease; I50.9 Heart failure, unspecified; N18.3 Chronic kidney disease, stage 3 (moderate); I25.5 Ischemic cardiomyopathy; I25.10 Atherosclerotic heart disease of native coronary artery without angina pectoris; E11.9 Type 2 diabetes mellitus without complications; M25.561 Pain in right knee; Z87.891 Personal history of nicotine dependence; Z87.01 Personal history of pneumonia (recurrent); Z79.02 Long term (current) use of antithrombotics/antiplatelets; Z79.84 Long term (current) use of oral hypoglycemic drugs
CPT/HCPCS: 36415; 80053; 85025; 99213

== ENCOUNTER → 2018-06-16 | Outpatient (CLI) | payer MEDICARE ==
--- NOTE | 2018-06-16 16:22 | Diagnostic Imaging Report ---
PROCEDURE: CT chest without contrast. TECHNIQUE: Multiple contiguous axial images were obtained through the chest without the use of intravenous contrast. INDICATION: Pneumonia. Shortness of breath. COMPARISON: Study compared to 03/04/2017. FINDINGS: There has been reduction in size of bilateral greater right pleural effusions nearly resolved on the left with fluid on the right today layers to an average depth of about 3 cm previously 4 cm. There is only mild subjacent subsegmental basilar atelectasis. There is some mild tosin-fissural atelectasis. No findings suggestive of alveolar pneumonia. There is some likely scarring on a groundglass basis in the right apex unchanged. Aorta is nonaneurysmal. There is coronary and aortic atherosclerotic vascular calcifications with a small pericardial effusion unchanged. Upper abdomen nonacute. IMPRESSION: Mild reduction in bilateral pleural fluid volume without loculation. No findings of focal pneumonia. No adverse development. Dictated by: Dictated on workstation # [id number]
== END ==
LOC: RAD 11:36
PROVIDERS: ATTEND Nurse Practitioner Family
DX: J18.9 Pneumonia, unspecified organism (principal); R94.2 Abnormal results of pulmonary function studies
CPT/HCPCS: 71250

== ENCOUNTER 2018-08-04 13:49 | Outpatient (RCR) | payer MEDICARE ==
[2018-07-04 16:57] LABS: ABSOLUTE RETIC # 36 10e9/L (24-90); BASOPHILS # (AUTO) 0.1 10^3/uL (0.0-0.1); BASOPHILS % (AUTO) 1 % (0-10); EOSINOPHILS # (AUTO) 0.1 10^3/uL (0.0-0.3); EOSINOPHILS % (AUTO) 2 % (0-10); HEMATOCRIT 40 % (40-54); HEMOGLOBIN 12.4 G/DL (13.3-17.7); LYMPHOCYTES # (AUTO) 1.4 X 10^3 (1.0-4.0); LYMPHOCYTES % (AUTO) 22 % (12-44); MEAN CORPUSCULAR HEMOGLOBIN 25 PG (25-34); MEAN CORPUSCULAR HGB CONC 31 G/DL (32-36); MEAN CORPUSCULAR VOLUME 81 FL (80-99); MEAN PLATELET VOLUME 11.3 FL (7.4-10.4); MONOCYTES # (AUTO) 0.9 X 10^3 (0.0-1.0); MONOCYTES % (AUTO) 13 % (0-12); NEUTROPHILS # (AUTO) 3.9 X 10^3 (1.8-7.8); NEUTROPHILS % (AUTO) 62 % (42-75); PLATELET COUNT 261 10^3/uL (130-400); RED BLOOD COUNT 4.97 10^6/uL (4.35-5.85); RED CELL DISTRIBUTION WIDTH 20.4 % (10.0-14.5); RETICULOCYTE % 0.73 % (0.50-2.40); WHITE BLOOD COUNT 6.4 10^3/uL (4.3-11.0)
[2018-07-04 17:20] LABS: ALBUMIN 4.3 GM/DL (3.2-4.5); BILIRUBIN,TOTAL 0.6 MG/DL (0.1-1.0); CALCIUM 9.7 MG/DL (8.5-10.1); CREATININE SERUM 1.71 MG/DL (0.60-1.30); POTASSIUM 4.1 MMOL/L (3.6-5.0); TOTAL PROTEIN 7.1 GM/DL (6.4-8.2)
[2018-07-29 14:16] LABS: BASOPHILS # (AUTO) 0.1 10^3/uL (0.0-0.1); BASOPHILS % (AUTO) 1 % (0-10); EOSINOPHILS # (AUTO) 0.1 10^3/uL (0.0-0.3); EOSINOPHILS % (AUTO) 2 % (0-10); HEMATOCRIT 42 % (40-54); HEMOGLOBIN 13.4 G/DL (13.3-17.7); LYMPHOCYTES # (AUTO) 1.4 X 10^3 (1.0-4.0); LYMPHOCYTES % (AUTO) 23 % (12-44); MEAN CORPUSCULAR HEMOGLOBIN 26 PG (25-34); MEAN CORPUSCULAR HGB CONC 32 G/DL (32-36); MEAN CORPUSCULAR VOLUME 81 FL (80-99); MEAN PLATELET VOLUME 10.4 FL (7.4-10.4); MONOCYTES # (AUTO) 0.8 X 10^3 (0.0-1.0); MONOCYTES % (AUTO) 12 % (0-12); NEUTROPHILS # (AUTO) 3.8 X 10^3 (1.8-7.8); NEUTROPHILS % (AUTO) 62 % (42-75); PLATELET COUNT 277 10^3/uL (130-400); RED BLOOD COUNT 5.19 10^6/uL (4.35-5.85); RED CELL DISTRIBUTION WIDTH 19.2 % (10.0-14.5); WHITE BLOOD COUNT 6.1 10^3/uL (4.3-11.0)
[2018-07-29 14:39] LABS: ALBUMIN 4.5 GM/DL (3.2-4.5); BILIRUBIN,TOTAL 0.7 MG/DL (0.1-1.0); CALCIUM 9.7 MG/DL (8.5-10.1); CREATININE SERUM 2.03 MG/DL (0.60-1.30); TOTAL PROTEIN 7.5 GM/DL (6.4-8.2)
== END 2018-10-02 | disposition home or self-care (01) ==
LOC: ONC 13:49
PROVIDERS: ATTEND Internal Medicine Hematology & Oncology
DX: D50.0 Iron deficiency anemia secondary to blood loss (chronic) (principal); D47.3 Essential (hemorrhagic) thrombocythemia; I13.0 Hypertensive heart and chronic kidney disease with heart failure and stage 1 through stage 4 chronic kidney disease, or unspecified chronic kidney disease; I50.9 Heart failure, unspecified; N18.3 Chronic kidney disease, stage 3 (moderate); I25.5 Ischemic cardiomyopathy; I25.10 Atherosclerotic heart disease of native coronary artery without angina pectoris; E11.9 Type 2 diabetes mellitus without complications; M25.561 Pain in right knee; Z87.891 Personal history of nicotine dependence; Z87.01 Personal history of pneumonia (recurrent); Z79.02 Long term (current) use of antithrombotics/antiplatelets; Z79.84 Long term (current) use of oral hypoglycemic drugs
CPT/HCPCS: 36415; 80053; 82728; 83540; 85025; 85045; 99213

== ENCOUNTER 2019-01-05 10:34 | Outpatient (RCR) | payer MEDICARE ==
[2018-10-10 09:26] LABS: BASOPHILS % (AUTO) 0 % (0-10); EOSINOPHILS # (AUTO) 0.2 10^3/uL (0.0-0.3); EOSINOPHILS % (AUTO) 3 % (0-10); HEMATOCRIT 43 % (40-54); HEMOGLOBIN 14.6 G/DL (13.3-17.7); LYMPHOCYTES # (AUTO) 1.4 X 10^3 (1.0-4.0); LYMPHOCYTES % (AUTO) 18 % (12-44); MEAN CORPUSCULAR HEMOGLOBIN 28 PG (25-34); MEAN CORPUSCULAR HGB CONC 34 G/DL (32-36); MEAN CORPUSCULAR VOLUME 84 FL (80-99); MEAN PLATELET VOLUME 11.2 FL (7.4-10.4); MONOCYTES # (AUTO) 0.9 X 10^3 (0.0-1.0); MONOCYTES % (AUTO) 12 % (0-12); NEUTROPHILS # (AUTO) 5.1 X 10^3 (1.8-7.8); NEUTROPHILS % (AUTO) 68 % (42-75); PLATELET COUNT 215 10^3/uL (130-400); RED CELL DISTRIBUTION WIDTH 16.7 % (10.0-14.5); WHITE BLOOD COUNT 7.6 10^3/uL (4.3-11.0)
[2018-10-10 09:45] LABS: ALBUMIN 4.4 GM/DL (3.2-4.5); BILIRUBIN,TOTAL 0.7 MG/DL (0.1-1.0); CALCIUM 9.8 MG/DL (8.5-10.1); CREATININE SERUM 1.79 MG/DL (0.60-1.30); POTASSIUM 4.6 MMOL/L (3.6-5.0); TOTAL PROTEIN 7.9 GM/DL (6.4-8.2)
[~2019-01-05 10:34] MED LIST changes: -AMLO10TA6 PO; +AMLO10TA7 PO; +LOSA25TA41 PO; -LOSA25TA6 PO
[2019-01-05 11:22] LABS: BASOPHILS % (AUTO) 1 % (0-10); EOSINOPHILS # (AUTO) 0.2 10^3/uL (0.0-0.3); EOSINOPHILS % (AUTO) 3 % (0-10); HEMATOCRIT 43 % (40-54); HEMOGLOBIN 14.2 G/DL (13.3-17.7); LYMPHOCYTES # (AUTO) 1.2 X 10^3 (1.0-4.0); LYMPHOCYTES % (AUTO) 22 % (12-44); MEAN CORPUSCULAR HEMOGLOBIN 29 PG (25-34); MEAN CORPUSCULAR HGB CONC 33 G/DL (32-36); MEAN CORPUSCULAR VOLUME 88 FL (80-99); MEAN PLATELET VOLUME 11.5 FL (7.4-10.4); MONOCYTES # (AUTO) 0.8 X 10^3 (0.0-1.0); MONOCYTES % (AUTO) 15 % (0-12); NEUTROPHILS # (AUTO) 3.4 X 10^3 (1.8-7.8); NEUTROPHILS % (AUTO) 60 % (42-75); PLATELET COUNT 187 10^3/uL (130-400); RED CELL DISTRIBUTION WIDTH 13.7 % (10.0-14.5); WHITE BLOOD COUNT 5.6 10^3/uL (4.3-11.0)
[2019-01-05 11:44] LABS: ALBUMIN 4.2 GM/DL (3.2-4.5); BILIRUBIN,TOTAL 0.6 MG/DL (0.1-1.0); CALCIUM 9.6 MG/DL (8.5-10.1); CREATININE SERUM 1.63 MG/DL (0.60-1.30); POTASSIUM 3.7 MMOL/L (3.6-5.0); TOTAL PROTEIN 6.9 GM/DL (6.4-8.2)
== END 2019-01-08 | disposition home or self-care (01) ==
LOC: ONC 10:34
PROVIDERS: ATTEND Internal Medicine Hematology & Oncology
DX: D50.0 Iron deficiency anemia secondary to blood loss (chronic) (principal); D47.3 Essential (hemorrhagic) thrombocythemia; I13.0 Hypertensive heart and chronic kidney disease with heart failure and stage 1 through stage 4 chronic kidney disease, or unspecified chronic kidney disease; I50.9 Heart failure, unspecified; N18.3 Chronic kidney disease, stage 3 (moderate); I25.5 Ischemic cardiomyopathy; I25.10 Atherosclerotic heart disease of native coronary artery without angina pectoris; E11.9 Type 2 diabetes mellitus without complications; M25.561 Pain in right knee; Z87.891 Personal history of nicotine dependence; Z87.01 Personal history of pneumonia (recurrent); Z79.02 Long term (current) use of antithrombotics/antiplatelets; Z79.84 Long term (current) use of oral hypoglycemic drugs
CPT/HCPCS: 36415; 80053; 82728; 83540; 84550; 85025; 99213

== ENCOUNTER 2019-01-17 16:02 | Outpatient (RCR) | payer MEDICARE | END 2019-02-21 10:14 | disposition home or self-care (01) | PROVIDERS: ATTEND Internal Medicine | DX: M79.604 Pain in right leg (principal); M79.605 Pain in left leg ==

== ENCOUNTER 2019-03-27 14:21 | Outpatient (RCR) | payer MEDICARE ==
[2019-03-24 15:42] LABS: BASOPHILS % (AUTO) 1 % (0-10); EOSINOPHILS # (AUTO) 0.2 10^3/uL (0.0-0.3); EOSINOPHILS % (AUTO) 3 % (0-10); HEMATOCRIT 42 % (40-54); HEMOGLOBIN 14.1 G/DL (13.3-17.7); LYMPHOCYTES # (AUTO) 1.5 X 10^3 (1.0-4.0); LYMPHOCYTES % (AUTO) 20 % (12-44); MEAN CORPUSCULAR HEMOGLOBIN 29 PG (25-34); MEAN CORPUSCULAR HGB CONC 34 G/DL (32-36); MEAN CORPUSCULAR VOLUME 86 FL (80-99); MEAN PLATELET VOLUME 11.2 FL (7.4-10.4); MONOCYTES # (AUTO) 0.8 X 10^3 (0.0-1.0); MONOCYTES % (AUTO) 11 % (0-12); NEUTROPHILS # (AUTO) 4.7 X 10^3 (1.8-7.8); NEUTROPHILS % (AUTO) 66 % (42-75); PLATELET COUNT 200 10^3/uL (130-400); RED CELL DISTRIBUTION WIDTH 14.1 % (10.0-14.5); WHITE BLOOD COUNT 7.2 10^3/uL (4.3-11.0)
[2019-03-24 15:59] LABS: ALBUMIN 4.2 GM/DL (3.2-4.5); BILIRUBIN,TOTAL 0.7 MG/DL (0.1-1.0); CALCIUM 9.1 MG/DL (8.5-10.1); CREATININE SERUM 2.06 MG/DL (0.60-1.30); POTASSIUM 3.9 MMOL/L (3.6-5.0); TOTAL PROTEIN 7.2 GM/DL (6.4-8.2); URIC ACID 8.9 MG/DL (2.6-7.2)
== END 2019-04-12 | disposition home or self-care (01) ==
LOC: ONC 14:21
PROVIDERS: ATTEND Internal Medicine Hematology & Oncology
DX: D50.0 Iron deficiency anemia secondary to blood loss (chronic) (principal); D47.3 Essential (hemorrhagic) thrombocythemia; I13.0 Hypertensive heart and chronic kidney disease with heart failure and stage 1 through stage 4 chronic kidney disease, or unspecified chronic kidney disease; I50.9 Heart failure, unspecified; N18.3 Chronic kidney disease, stage 3 (moderate); I25.5 Ischemic cardiomyopathy; I25.10 Atherosclerotic heart disease of native coronary artery without angina pectoris; E11.9 Type 2 diabetes mellitus without complications; M25.561 Pain in right knee; Z87.891 Personal history of nicotine dependence; Z87.01 Personal history of pneumonia (recurrent); Z79.02 Long term (current) use of antithrombotics/antiplatelets; Z79.84 Long term (current) use of oral hypoglycemic drugs
CPT/HCPCS: 80053; 82728; 83540; 84550; 85025; 99213

== ENCOUNTER 2019-07-20 14:41 | Outpatient (RCR) | payer MEDICARE ==
[2019-04-24 09:20] LABS: BASOPHILS % (AUTO) 0 % (0-10); EOSINOPHILS # (AUTO) 0.2 10^3/uL (0.0-0.3); EOSINOPHILS % (AUTO) 2 % (0-10); HEMATOCRIT 45 % (40-54); HEMOGLOBIN 15.3 G/DL (13.3-17.7); LYMPHOCYTES # (AUTO) 1.3 X 10^3 (1.0-4.0); LYMPHOCYTES % (AUTO) 12 % (12-44); MEAN CORPUSCULAR HEMOGLOBIN 29 PG (25-34); MEAN CORPUSCULAR HGB CONC 34 G/DL (32-36); MEAN CORPUSCULAR VOLUME 86 FL (80-99); MEAN PLATELET VOLUME 10.8 FL (7.4-10.4); MONOCYTES # (AUTO) 1.3 X 10^3 (0.0-1.0); MONOCYTES % (AUTO) 12 % (0-12); NEUTROPHILS # (AUTO) 8.2 X 10^3 (1.8-7.8); NEUTROPHILS % (AUTO) 75 % (42-75); PLATELET COUNT 224 10^3/uL (130-400); RED CELL DISTRIBUTION WIDTH 14.3 % (10.0-14.5); WHITE BLOOD COUNT 10.9 10^3/uL (4.3-11.0)
[2019-04-24 09:42] LABS: ALBUMIN 4.5 GM/DL (3.2-4.5); BILIRUBIN,TOTAL 0.7 MG/DL (0.1-1.0); CALCIUM 9.9 MG/DL (8.5-10.1); CREATININE SERUM 1.75 MG/DL (0.60-1.30); POTASSIUM 4.5 MMOL/L (3.6-5.0); TOTAL PROTEIN 7.6 GM/DL (6.4-8.2)
[2019-07-13 13:10] LABS: BASOPHILS % (AUTO) 1 % (0-10); EOSINOPHILS # (AUTO) 0.2 10^3/uL (0.0-0.3); EOSINOPHILS % (AUTO) 4 % (0-10); HEMATOCRIT 41 % (40-54); HEMOGLOBIN 13.9 G/DL (13.3-17.7); LYMPHOCYTES # (AUTO) 1.4 X 10^3 (1.0-4.0); LYMPHOCYTES % (AUTO) 21 % (12-44); MEAN CORPUSCULAR HEMOGLOBIN 30 PG (25-34); MEAN CORPUSCULAR HGB CONC 34 G/DL (32-36); MEAN CORPUSCULAR VOLUME 86 FL (80-99); MONOCYTES # (AUTO) 0.9 X 10^3 (0.0-1.0); MONOCYTES % (AUTO) 13 % (0-12); NEUTROPHILS # (AUTO) 4.3 X 10^3 (1.8-7.8); NEUTROPHILS % (AUTO) 63 % (42-75); PLATELET COUNT 207 10^3/uL (130-400); RED CELL DISTRIBUTION WIDTH 13.7 % (10.0-14.5); WHITE BLOOD COUNT 6.8 10^3/uL (4.3-11.0)
[2019-07-13 13:43] LABS: ALBUMIN 4.1 GM/DL (3.2-4.5); BILIRUBIN,TOTAL 0.5 MG/DL (0.1-1.0); CALCIUM 9.7 MG/DL (8.5-10.1); CREATININE SERUM 1.67 MG/DL (0.60-1.30); POTASSIUM 4.3 MMOL/L (3.6-5.0); TOTAL PROTEIN 7.2 GM/DL (6.4-8.2)
== END 2019-07-23 | disposition home or self-care (01) ==
LOC: ONC 14:41
PROVIDERS: ATTEND Internal Medicine Hematology & Oncology
DX: D50.0 Iron deficiency anemia secondary to blood loss (chronic) (principal); D47.3 Essential (hemorrhagic) thrombocythemia; I13.0 Hypertensive heart and chronic kidney disease with heart failure and stage 1 through stage 4 chronic kidney disease, or unspecified chronic kidney disease; I50.9 Heart failure, unspecified; N18.3 Chronic kidney disease, stage 3 (moderate); I25.5 Ischemic cardiomyopathy; I25.10 Atherosclerotic heart disease of native coronary artery without angina pectoris; E11.9 Type 2 diabetes mellitus without complications; M25.561 Pain in right knee; Z87.891 Personal history of nicotine dependence; Z87.01 Personal history of pneumonia (recurrent); Z79.02 Long term (current) use of antithrombotics/antiplatelets; Z79.84 Long term (current) use of oral hypoglycemic drugs
CPT/HCPCS: 36415; 80053; 82728; 83540; 84550; 85025; 99213

== ENCOUNTER → 2020-04-15 | Outpatient (CLI) | payer MEDICARE ==
[~2020-04-15] MED LIST changes: -GLIM4TAB PO; +GLIM4TAB5 PO; -METO-395 PO; +MTP100TCR PO; -TAMS0.4C98 PO; +TMSL.4C PO
== END ==
LOC: CARD 11:12
PROVIDERS: ATTEND Internal Medicine Cardiovascular Disease
DX: I08.0 Rheumatic disorders of both mitral and aortic valves (principal); I25.10 Atherosclerotic heart disease of native coronary artery without angina pectoris; I65.23 Occlusion and stenosis of bilateral carotid arteries; I12.9 Hypertensive chronic kidney disease with stage 1 through stage 4 chronic kidney disease, or unspecified chronic kidney disease; N18.3 Chronic kidney disease, stage 3 (moderate); E11.9 Type 2 diabetes mellitus without complications; I25.5 Ischemic cardiomyopathy
CPT/HCPCS: 93306

== ENCOUNTER → 2020-04-16 | Outpatient (CLI) | payer MEDICARE ==
[~2020-04-16] VITALS: Ht 177 cm; Wt 75.0 kg
[~2020-04-16] MED LIST changes: +CATHETER FLUSH 10 ML SYR IV PRN; +REGADENOSON 0.4 MG/5 ML SYR (LEXISCAN) IV ONE
--- NOTE | 2020-04-16 12:41 | STRESS TEST ---
DATE OF SERVICE: 04/16/2020 RESTING AND POST REGADENOSON TECHNETIUM-99M TETROFOSMIN SPECT CT IMAGING ORDERING PHYSICIAN: Dr. Vela. PRIMARY PHYSICIAN: Dr. Fam. CLINICAL DIAGNOSIS: Coronary artery disease. Baseline images were carried out after injection of 10.77 mCi of technetium-99m Tetrofosmin. This was followed by 0.4 mg Regadenoson and 32.7 mCi of technetium-99m Tetrofosmin for stress imaging. The electrocardiogram showed sinus rhythm with evidence of old septal wall myocardial infarction. There is nonspecific ST abnormality. The electrocardiogram did not change significantly with the Regadenoson infusion. The patient tolerated the procedure well. Review of images at rest and following stress indicates a predominantly fixed inferoapical perfusion defect. Gated images show inferoapical akinesis. Left ventricular ejection fraction is calculated to be 30%. Left ventricular end diastolic volume is 219 mL. TID is absent (1.14). CONCLUSIONS: 1. Inferoapical myocardial infarction with a small amount of tosin-infarct ischemia. 2. Anteroapical akinesis. 3. Left ventricular ejection fraction is calculated to be 30%. 4. Cardiomegaly. Job ID: [id number] DocumentID: [id number] Dictated Date: 04/16/2020 12:04:20 Pattern Room Attendant Date: 04/16/2020 12:40:34 Dictated By: RHYS VELA MD, MA, FACP, FACC,
== END ==
LOC: CARD 07:51
PROVIDERS: ATTEND Internal Medicine Cardiovascular Disease
DX: I13.10 Hypertensive heart and chronic kidney disease without heart failure, with stage 1 through stage 4 chronic kidney disease, or unspecified chronic kidney disease (principal); I25.2 Old myocardial infarction; I25.9 Chronic ischemic heart disease, unspecified; I25.10 Atherosclerotic heart disease of native coronary artery without angina pectoris; I65.29 Occlusion and stenosis of unspecified carotid artery; E11.22 Type 2 diabetes mellitus with diabetic chronic kidney disease; N18.3 Chronic kidney disease, stage 3 (moderate); I34.0 Nonrheumatic mitral (valve) insufficiency; I25.5 Ischemic cardiomyopathy
CPT/HCPCS: 78452; 93017; A9502

== ENCOUNTER → 2020-10-14 | Outpatient (CLI) | payer MEDICARE ==
[~2020-10-14] MED LIST changes: +AMLO-251 PO; -AMLO10TA7 PO; -CATHETER FLUSH 10 ML SYR IV PRN; +GADOBUTROL 7.5 MMOL/7.5 ML (GADAVIST) VIAL IV ONE; -PANT40TA3 PO; +PANT40TA52 PO; -REGADENOSON 0.4 MG/5 ML SYR (LEXISCAN) IV ONE
--- NOTE | 2020-10-14 15:51 | Diagnostic Imaging Report ---
EXAMINATION: MR imaging brain without contrast. TECHNIQUE: Multiplanar, multisequence MR imaging of the brain was performed with and without contrast. Additional dedicated sequences are performed of the internal auditory canals. HISTORY: Left-sided hearing loss. COMPARISON: CT head on 05/17/2018. FINDINGS: No acute ischemia, intraparenchymal mass, or hemorrhage. Old lacunar infarct is noted in the left duarte radiata. Chronic microvascular disease is seen in the periventricular and subcortical white matter. The ventricles and cortical sulci are prominent. The basilar cisterns are symmetric and unremarkable. The sellar and suprasellar regions have a normal appearance. The major intracranial flow voids are intact. An enhancing mass is visualized in the left CPA and internal auditory canal measuring 1.3 x 0.5 cm and 0.5 cm craniocaudal. A CSF apical cap is present. No enhancement is visualized extending into the inner ear structures on the left. The seventh and eighth cranial nerves on the right have a normal appearance without evidence of mass. The inner ear structures on the right have a normal MR appearance. The paranasal sinuses and mastoid air cells demonstrate normal signal characteristics. The globes and orbits are symmetric and unremarkable. A mucus retention cyst is visualized in the nasopharynx to the right of midline extending from the fossa of Rosenmuller. The scalp and calvarium have a normal appearance. IMPRESSION: 1. Findings consistent with left-sided acoustic schwannoma. No invasion into the left inner ear structures is seen. No mass effect is exerted on the brainstem. 2. No acute ischemia, intraparenchymal mass, or hemorrhage. 3. Generalized parenchymal volume loss with chronic microvascular disease. Old lacunar infarct is noted in the left duarte radiata. 4. Mucous retention cyst within the right fossa of Rosenmuller. Dictated by: Dictated on workstation # [id number]
== END ==
LOC: RAD 14:00
PROVIDERS: ATTEND Otolaryngology Otolaryngology/Facial Plastic Surgery
DX: H91.92 Unspecified hearing loss, left ear (principal); I67.89 Other cerebrovascular disease; G31.9 Degenerative disease of nervous system, unspecified; J34.1 Cyst and mucocele of nose and nasal sinus
CPT/HCPCS: 70553

== ENCOUNTER 2020-12-05 15:12 | Observation (INO) | payer MEDICARE ==
[~2020-12-05] VITALS: Ht 152.5 cm; Wt 74.7 kg
[~2020-12-05 15:12] MED LIST changes: -GADOBUTROL 7.5 MMOL/7.5 ML (GADAVIST) VIAL IV ONE
[2020-12-05] MEDS ORDERED: HYDROmorphone 2 MG/ML VIAL (DILAUDID) IVP PRN (15:30)
[2020-12-05] MEDS ORDERED: CATHETER FLUSH 10 ML SYR IV PRN (16:15)
[2020-12-05] MEDS: oxyCODONE/APAP 5/325MG (PERCOCET 5) TABLET PO PRN ×2 (16:33→21:01)
--- NOTE | 2020-12-05 16:46 | Diagnostic Imaging Report ---
INDICATION: Bilateral knee pain AP, lateral, and oblique views of both knees are obtained and compared to 05/08/2018. On the right side, there is medial and lateral joint space narrowing with osteophyte formation with mild patellofemoral spurring. There is a well-defined lucent lesion in the lateral femoral condyle which appears stable compared to 05/08/2018. There is no acute fracture or overt joint effusion. The left side, there is no acute fracture. There appears be an old fracture deformity of the proximal fibula which is well-healed. The medial lateral joint spaces appear preserved. There is mild degenerative change of the patellofemoral joint. There is no overt joint effusion. IMPRESSION: Degenerative findings of the right knee are present which are progressed compared to 05/08/2018. There is a benign-appearing lucent lesion in the lateral femoral condyle of the right knee which is unchanged. There is minimal degenerative change of the left knee. There is no acute finding. Dictated by: Dictated on workstation # [id number]
[2020-12-05 16:57] LABS: BASOPHILS # (AUTO) 0.1 10^3/uL (0.0-0.1); BASOPHILS % (AUTO) 1 % (0-10); EOSINOPHILS # (AUTO) 0.2 10^3/uL (0.0-0.3); EOSINOPHILS % (AUTO) 2 % (0-10); HEMATOCRIT 37 % (40-54); HEMOGLOBIN 11.8 g/dL (13.3-17.7); LYMPHOCYTES # (AUTO) 1.2 10^3/uL (1.0-4.0); LYMPHOCYTES % (AUTO) 8 % (12-44); MEAN CORPUSCULAR HEMOGLOBIN 28 pg (25-34); MEAN CORPUSCULAR HGB CONC 32 g/dL (32-36); MEAN CORPUSCULAR VOLUME 87 fL (80-99); MEAN PLATELET VOLUME 10.4 fL (9.0-12.2); MONOCYTES # (AUTO) 1.4 10^3/uL (0.0-1.0); MONOCYTES % (AUTO) 10 % (0-12); NEUTROPHILS # (AUTO) 11.6 10^3/uL (1.8-7.8); NEUTROPHILS % (AUTO) 80 % (42-75); PLATELET COUNT 383 10^3/uL (130-400); WHITE BLOOD COUNT 14.6 10^3/uL (4.3-11.0)
[2020-12-05 17:05] LABS: ALBUMIN 3.6 GM/DL (3.2-4.5); POTASSIUM 4.3 MMOL/L (3.6-5.0)
[2020-12-05 17:06] LABS: CALCIUM 8.9 MG/DL (8.5-10.1)
[2020-12-05 17:07] LABS: TOTAL PROTEIN 7.6 GM/DL (6.4-8.2)
[2020-12-05 17:09] LABS: BILIRUBIN,TOTAL 0.6 MG/DL (0.1-1.0)
[2020-12-05 17:11] LABS: CREATININE SERUM 1.48 MG/DL (0.60-1.30)
[2020-12-05 17:14] LABS: URIC ACID 5.9 MG/DL (2.6-7.2)
[2020-12-05 17:20] LABS: BAND NEUTROPHILS 0 %; BASOPHILS % (MANUAL) 0 %; EOSINOPHILS % (MANUAL) 1 %; LYMPHOCYTES % (MANUAL) 3 %; MONOCYTES % (MANUAL) 11 %; NEUTROPHILS % (MANUAL) 85 %; RBC MORPH NORMAL
[2020-12-05] MEDS: ENOXAPARIN 40 MG/0.4 ML (LOVENOX) SYR SC SCH (18:02)
[2020-12-05] MEDS: NS IV 1000 ML 1,000 ML IV SCH (18:02)
[2020-12-05] MEDS: methylPREDNISolone 125 MG (Solu-MEDROL) VIAL IVP SCH ×2 (18:02→21:17)
[2020-12-05] MEDS: inSUlin ASPART (NovoLOG) 1 UNIT/0.01 ML (CHARGE PER UNIT) SC SCH ×2 (18:03→21:07)
[2020-12-05 18:05] LABS: ERYTHROCYTE SEDIMENTATION RATE 90 MM/HR (0-30)
[2020-12-05] MEDS ORDERED: PATIENT MAY USE OWN MEDS, ALL MC SCH (19:15)
[2020-12-05 19:20] VITALS: BP 124/65
[2020-12-05] MEDS ORDERED: COLCHICINE 0.6 MG (COLCRYS) TABLET PO NR (19:30)
[2020-12-05] MEDS: ZOLPIDEM 5 MG (AMBIEN) TAB PO SCH (21:01)
[2020-12-05] MEDS: BETHANECHOL 25 MG (URECHOLINE) TAB PO SCH (21:02)
[2020-12-05 21:31] LABS: BILIRUBIN,URINE NEGATIVE (NEGATIVE); CLARITY,URINE SL CLOUDY; COLOR,URINE YELLOW; GLUCOSE, URINE (UA) NEGATIVE (NEGATIVE); KETONES,URINE NEGATIVE (NEGATIVE); LEUKOCYTE ESTERASE ,URINE NEGATIVE (NEGATIVE); NITRITE,URINE NEGATIVE (NEGATIVE); PROTEIN,URINE NEGATIVE (NEGATIVE)
[2020-12-05 21:44] LABS: WBC,URINE 0-2 /HPF
[2020-12-05 21:45] LABS: AMORPHOUS SEDIMENT,UR RARE AMOR URATES /LPF; BACTERIA,URINE NEGATIVE /HPF
[2020-12-05 23:49] VITALS: BP 123/70
[2020-12-06] VITALS (7 sets, daily range): BP systolic 120–144; BP diastolic 62–76
[2020-12-06] MEDS: methylPREDNISolone 125 MG (Solu-MEDROL) VIAL IVP SCH ×4 (03:58→22:25)
[2020-12-06] MEDS: oxyCODONE/APAP 5/325MG (PERCOCET 5) TABLET PO PRN ×2 (04:02→08:37)
[2020-12-06] MEDS: BETHANECHOL 25 MG (URECHOLINE) TAB PO SCH ×2 (05:46→11:15)
[2020-12-06] MEDS: inSUlin ASPART (NovoLOG) 1 UNIT/0.01 ML (CHARGE PER UNIT) SC SCH ×4 (05:51→20:05)
[2020-12-06] MEDS ORDERED: GLIMEPIRIDE 4 MG (AMARYL) TAB PO SCH (06:30)
[2020-12-06] MEDS: NS IV 1000 ML 1,000 ML IV SCH (07:36)
[2020-12-06] MEDS: PANTOPRAZOLE 40 MG (PROTONIX) TAB PO SCH (08:35)
[2020-12-06] MEDS ORDERED: HYDR-3817 PO (08:57)
[2020-12-06] MEDS ORDERED: ZOLP10TA PO (08:57)
[2020-12-06] MEDS ORDERED: ALLO100T PO (08:57)
[2020-12-06] MEDS ORDERED: FERR325T24 PO (08:57)
[2020-12-06] MEDS ORDERED: LISI20TA26 PO (08:57)
[2020-12-06] MEDS ORDERED: CLOP75TA28 PO (08:57)
[2020-12-06] MEDS ORDERED: BETH50TA2 PO (08:57)
[2020-12-06] MEDS ORDERED: MTP100TCR PO (08:57)
[2020-12-06] MEDS ORDERED: TMSL.4C PO (08:57)
[2020-12-06] MEDS ORDERED: CLOPIDOGREL 75 MG (PLAVIX) TABLET PO SCH ×2 (09:00→21:00)
[2020-12-06] MEDS ORDERED: POTA10TA PO (09:00)
[2020-12-06] MEDS ORDERED: FURO40TA4 PO (09:01)
--- NOTE | 2020-12-06 10:35 | Physical Therapy Evaluation ---
PT Evaluation-General Medical Diagnosis Admission Date Dec 05, 2020 at 15:34 Medical Diagnosis: gout Onset Date: Dec 05, 2020 Therapy Diagnosis Therapy Diagnosis: debility Height/Weight Height (Feet): 5 Height (Inches): 11.00 Weight (Pounds): 195 Weight (Ounces): 11.2 Precautions Precautions/Isolations: Standard Precautions Referral Physician: Cristel Reason for Referral: Evaluation/Treatment Medical History Pertinent Medical History: CAD, DM, Heart Failure, HTN, Neuropathy, Renal Insufficiency Current History inability to ambulate Reviewed History: Yes Social History Home: Single Level Prior Prior Level of Function SCALE: Activities may be completed with or without assistive devices. 9-Ealmerbops-dzuctix completes the activity by him/herself with no assistance from a helper. 5-Set-up or Clean-up Assistance-helper sets up or cleans up; patient completes activity. [place] assists only prior to or following the activity. 4-Supervision or Touching Assistance-helper provides verbal cues and/or touching/steadying and/or contact guard assistance as patient completes activity. Assistance may be provided throughout the activity or intermittently. 3-Partial/Moderate Assistance-helper does LESS THAN HALF the effort. [place] lifts, holds or supports trunk or limbs, but provides less than half the effort. 2-Substantial/Maximal Assistance-helper does MORE THAN HALF the effort. [place] lifts or holds trunk or limbs and provides more than half the effort. 5-Orabcgmkh-qdjptd does ALL the effort. Patient does none of the effort to complete the activity. Or, the assistance of 2 or more helpers is required for the patient to complete the activity. If activity was not attempted, code reason: 7-Patient Refused. 9-Not Applicable-not attempted and the patient did not perform the activity before the current illness, exacerbation or injury. 10-Not Attempted due to Environmental Limitations-(lack of equipment, weather restraints, etc.). 88-Not Attempted due to Medical Conditions or Safety Concerns. Bed Mobility: 6 Transfers (B,C,W/C): 6 Gait: 6 Stairs: 6 Indoor Mobility (Ambulation): Independent Stairs: Independent Prior Devices Use: None, Walker (PRN) PT Evaluation-Current Subjective Patient agrees to PT. Pain Numeric Pain Scale: 5-Moderate Pain Location: Right, Left Location Body Site: Knee Pain Description: Acute Objective Patient Orientation: Normal For Age Attachments: IV ROM/Strength ROM Lower Extremities bilateral LE WFL with slow ROM due to knee pain Strength Lower Extremities 4/5 grossly bilateral LE Integumentary/Posture Integumentary refer to nursing notes Bowel Incontinence: No Bladder Incontinence: No Posture WFL Neuromuscular (Tone, Coordination, Reflexes) grossly intact Sensory Vision: Functional Hearing: Functional Transfers Roll Left to Right (QC): 6 Sit to Lying (QC): 6 Lying to Sitting/Side of Bed(Q: 6 Sit to Stand (QC): 6 Chair/Xwb-vv-Kpwug Xfer(QC): 6 Toilet Transfer (QC): 6 Gait Does the Patient Walk?: Yes Mode of Locomotion: Walk Anticipated Mode of Locomotion: Walk Walk 10 feet (QC): 4 Walk 50 ft with 2 Turns(QC): 4 Walk 150 ft (QC): 4 Gait Assistive Device: FWW Comments/Gait Description slow, antalgic/SBA for IV pole and safety Balance Sitting Static: Normal Sitting Dynamic: Normal Standing Static: Normal Standing Dynamic: Normal Picking up an Object (QC): 6 Assessment/Needs 70 y.o. male, will be seen short term by skilled PT to ensure functional mobility is safe to return to home. Rehab Potential: Fair PT Short Term Goals Short Term Goals Time Frame: Dec 14, 2020 Roll Left & Right: 6 Sit to lyin Lying to sitting on side of be: 6 Sit to stand: 6 Chair/iew-wk-rttga transfer: 6 Toilet transfer: 6 Walk 10 feet: 6 Walk 50 feet with two turns: 6 Walk 150 feet: 6 PT Plan Treatment/Plan Treatment Plan: Continue Plan of Care Treatment Plan: Education, Functional Activity Orly, Functional Strength, Gait, Safety, Therapeutic Exercise, Transfers Treatment Duration: Dec 14, 2020 Frequency: 6 times per week Estimated Hrs Per Day: .25 hour per day Discharge Recommendations Therapy Discharge Recommendati: Home & Family Time/GCodes Time In: 816 Time Out: 830 Total Billed Treatment Time: 14 Total Billed Treatment 1 visit EVModC 14 min MARTHA BEARD PT Dec 06, 2020 10:34
--- NOTE | 2020-12-06 11:24 | Occupational Therapy Eval ---
OT Evaluation-General/PLF Medical Diagnosis Admission Date Dec 05, 2020 at 15:34 Medical Diagnosis: gout Onset Date: Dec 05, 2020 Therapy Diagnosis Therapy Diagnosis: Decreased ADL status Height/Weight Height (Feet): 5 Height (Inches): 11.00 Weight (Pounds): 195 Weight (Ounces): 11.2 Precautions Precautions/Isolations: Standard Precautions Weight Bear Status Weight Bearing Restriction: Weight Bearing/Tolerated Referral Physician: Cristel Referral Reason: Activity Tolerance, Self Care, Evaluation/Treatment Medical History Pertinent Medical History: CAD, DM, Heart Failure, HTN, Neuropathy, Renal Insufficiency Current History Pt expresses extreme gout in BLE. At this time, only L knee affected. Reviewed History: Yes Social History Home: Single Level Current Living Status: Significant Other (has been staying with pt.) Entry Into Home: Stairs With Railing Steps Into Home: 2 (platform stairs with grab bars) ADL-Prior Level of Function SCALE: Activities may be completed with or without assistive devices. 4-Watkgzpfas-gpxvjgz completes the activity by him/herself with no assistance from a helper. 5-Set-up or Clean-up Assistance-helper sets up or cleans up; patient completes activity. [place] assists only prior to or following the activity. 4-Supervision or Touching Assistance-helper provides verbal cues and/or touching/steadying and/or contact guard assistance as patient completes activity. Assistance may be provided throughout the activity or intermittently. 3-Partial/Moderate Assistance-helper does LESS THAN HALF the effort. [place] lifts, holds or supports trunk or limbs, but provides less than half the effort. 2-Substantial/Maximal Assistance-helper does MORE THAN HALF the effort. [place] lifts or holds trunk or limbs and provides more than half the effort. 4-Btjzwuofu-djtwkz does ALL the effort. Patient does none of the effort to complete the activity. Or, the assistance of 2 or more helpers is required for the patient to complete the activity. If activity was not attempted, code reason: 7-Patient Refused. 9-Not Applicable-not attempted and the patient did not perform the activity be fore the current illness, exacerbation or injury. 10-Not Attempted due to Environmental Limitations-(lack of equipment, weather restraints, etc.). 88-Not Attempted due to Medical Conditions or Safety Concerns. ADL PLOF Comments Pt IND with I/ADLs with assist for driving at times due to gout pain. 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 Pt agrees to evaluation, states pain in L knee only and that he is "getting better." Mental Status/Objective Patient Orientation: Person, Place, Situation, Normal For Age Attachments: IV Current Glasses/Contacts: Yes Hearing Aids: No Dentures/Partials: Yes Hand Dominance: Right Upper Extremity ROM WFL BUE Upper Extremity Coordination WFL BUE Upper Extremity Sensation WFL BUE Upper Extremity Strength WFL BUE (5/5 shoulder flexion) ADL-Treatment Eating (QC): 6 Oral Hygiene (QC): 6 Lower Body Dressing (QC): 6 On/Off Footwear (QC): 6 Other Treatments Pt states gout has affected him the past few months, limiting IADL ability but pt is feeling much better. Girlfriend at home who can assist as well as co- workers for transportation. pt s/u at home with good equipment, walker use PRN. Pt sit to stand SBA, use of walker. pt stands to complete reaching/ balance task with good balance. MMT completed in stance. Pt returns to chair, states dressed LB and will not have difficulty at home. Educated to continue UE/ LE movement in chair, all needs met, left with nursing care. d/c at this time. Education OT Patient Education: Exercise program, Progress toward Goal/Update tx plan, Purpose of tx/functional activities Teaching Recipient: Patient Teaching Methods: Demonstration, Discussion Response to Teaching: Verbalize Understanding, Return Demonstration OT Fci Goals Fci Goals 1=Demonstrate adherence to instructed precautions during ADL tasks. 2=Patient will verbalize/demonstrate understanding of assistive devices/modifications for ADL. 3=Patient will improve strength/tolerance for activity to enable patient to perform ADL's. OT Education/Plan Problem List/Assessment Assessment: No Skilled OT Needs ID'd Discharge Recommendations Plan/Recommendations: Discharge/Goals Met Therapy Discharge Recommendati: Home & Family Treatment Plan/Plan of Care Treatment,Training & Education: Yes Patient would benefit from OT for education, treatment and training to promote independence in ADL's, mobility, safety and/or upper extremity function for ADL's. Plan of Care: OTHER (eval and d/c) Treatment Duration: Dec 06, 2020 Frequency: 1 time per week (eval and d/c) Rehab Potential: Fair Time/GCodes Start Time: 11:00 Stop Time: 11:18 Total Time Billed (hr/min): 18 Billed Treatment Time 1, EVL (18) d/c. BENJAMIN BORGES OTR Dec 06, 2020 11:24
[2020-12-06] MEDS ORDERED: inSUlin (REGULAR) HUMAN 1 UNIT/0.01 ML (CHARGE PER UNIT) SC PRN (12:00)
[2020-12-06 12:12] LABS: BASOPHILS % (AUTO) 0 % (0-10); EOSINOPHILS % (AUTO) 0 % (0-10); HEMATOCRIT 38 % (40-54); HEMOGLOBIN 12.1 g/dL (13.3-17.7); LYMPHOCYTES # (AUTO) 0.6 10^3/uL (1.0-4.0); LYMPHOCYTES % (AUTO) 4 % (12-44); MEAN CORPUSCULAR HEMOGLOBIN 28 pg (25-34); MEAN CORPUSCULAR HGB CONC 32 g/dL (32-36); MEAN CORPUSCULAR VOLUME 87 fL (80-99); MEAN PLATELET VOLUME 10.4 fL (9.0-12.2); MONOCYTES # (AUTO) 0.2 10^3/uL (0.0-1.0); MONOCYTES % (AUTO) 1 % (0-12); NEUTROPHILS % (AUTO) 94 % (42-75); PLATELET COUNT 440 10^3/uL (130-400); WHITE BLOOD COUNT 15.9 10^3/uL (4.3-11.0)
[2020-12-06 12:27] LABS: ALBUMIN 3.5 GM/DL (3.2-4.5); POTASSIUM 4.3 MMOL/L (3.6-5.0)
[2020-12-06 12:28] LABS: CALCIUM 8.9 MG/DL (8.5-10.1)
[2020-12-06 12:30] LABS: TOTAL PROTEIN 7.4 GM/DL (6.4-8.2)
[2020-12-06 12:31] LABS: BILIRUBIN,TOTAL 0.5 MG/DL (0.1-1.0)
[2020-12-06 12:33] LABS: CREATININE SERUM 1.71 MG/DL (0.60-1.30)
[2020-12-06] MEDS: HYDROcodone/APAP 7.5 MG/325 MG (LORTAB, LORCET PLUS) TABLET PO PRN ×2 (13:08→23:43)
--- NOTE | 2020-12-06 14:15 | History & Physical ---
[facility] 12/06/20 1415: History of Present Illness History of Present Illness Reason for visit/HPI Hernan is a 70 y/o male that was admitted to the [facility] directly from [facility]. He had BL Knee and leg pain that was 8/10. This pain has been going on for >3 weeks and has caused him to become wheelchair bound. His baseline mobility is walking without assistance. He has now requires care from his significant other with movement and ADLS. He states he used to take allupurinol for gout but stopped in 2019. He characterizes the pain as a dull ache. Restarting his allupurinol has helped minimally. Resting helps with pain. Bed sores and a left heal ulcer have started, this is likely do to patients immobility. Since his admission and receiving IV fluids and steroids he is starting to feel better. He is becoming mobile with the walker and he states " this is the best I have slept and moved in three weeks". He also expressed how difficult the last three weeks have been because he has been wheelchair bound. Date of Admission Dec 05, 2020 at 15:34 Date Seen by a Provider: Dec 06, 2020 Time Seen by a Provider: 10:15 I consulted on this patient on 12/06/20 14:02 Attending Physician Sue Fam DO Admitting Physician Sue Fam DO Consult Allergies and Home Medications Allergies Coded Allergies: No Known Drug Allergies (Unverified , 01/25/17) Home Medications Allopurinol 100 Mg Tablet, 100 MG PO BID, (Reported) Bethanechol Chloride 50 Mg Tablet, 50 MG PO DAILY, (Reported) Clopidogrel Bisulfate 75 Mg Tablet, 75 MG PO HS, (Reported) Ferrous Sulfate 325 Mg Tablet, 325 MG PO HS, (Reported) Furosemide 40 Mg Tablet, 40 MG PO HS, (Reported) Glimepiride 4 Mg Tablet, 4 MG PO BID, (Reported) Hydrocodone/Acetaminophen 1 Each Tablet, 1 EA PO BID PRN for PAIN-MODERATE (5- 7), (Reported) Lisinopril 20 Mg Tablet, 20 MG PO HS, (Reported) Metoprolol Succinate 100 Mg Tab.er.24h, 100 MG PO DAILY, (Reported) Potassium Chloride 10 Meq Tablet.er, 10 MEQ PO HS, (Reported) Tamsulosin HCl 0.4 Mg Cap, 0.4 MG PO 1800 AFTER DINNER, (Reported) Zolpidem Tartrate 10 Mg Tablet, 10 MG PO HS, (Reported) Past Dasrlfy-Lcvjcd-Sibgng Hx Patient Social History Alcohol Beverage of Choice: Beer Former Smoker, Quit: February 09, 1998 2nd Hand Smoke Exposure: No Recent Hopitalizations: Yes Have you traveled recently?: No Alcohol Use?: No Pt feels they are or have been: No Immunizations Up To Date Pediatric: No Seasonal Allergies Seasonal Allergies: No Surgeries Yes (Mass removed from neck 2009; EGD; Colonoscopy) Respiratory No COPD, Pneumonia Currently Using CPAP: No Currently Using BIPAP: No Cardiovascular Yes (Heart stents) Coronary Artery Disease, High Cholesterol, Hypertension Neurological Yes Neuropathy Genitourinary Yes (Retention) Renal Failure Gastrointestinal No Musculoskeletal Yes Chronic Back Pain, Gout Endocrine History of Endocrine Disorders: Yes Endocrine Disorders: Diabetes, Non-Insulin dep HEENT History of HEENT Disorders: Yes HEENT Disorders: Cataract Loss of Vision: Denies Hearing Impairment: Denies Cancer No Psychosocial History of Psychiatric Problem: No Integumentary History of Skin or Integumenta: No Blood Transfusions History of Blood Disorders: No Family Medical History Significant Family History: No Pertinent Family Hx Review of Systems Constitutional: no symptoms reported EENTM: no symptoms reported Respiratory: no symptoms reported Cardiovascular: no symptoms reported Gastrointestinal: no symptoms reported Genitourinary: no symptoms reported Musculoskeletal: gout, other (BL knee and leg pain. Pain R>LL. Decreased Mobility with extention and flexion R>L ) Skin: no symptoms reported Psychiatric/Neurological: No Symptoms Reported Physical Exam Vital Signs Vital Signs - First Documented 12/05/20 12/05/20 17:12 19:20 Temp 36.1 Pulse 93 Resp 16 B/P (MAP) 124/65 (84) Pulse Ox 97 O2 Delivery Room Air Capillary Refill : Height, Weight, BMI Height: 5'11.00" Weight: 195lbs. 11.2oz. [id number]; 32.24 BMI Method:Stated General Appearance: No Apparent Distress, WD/WN HEENT: PERRL/EOMI Neck: Normal Inspection, Non Tender Respiratory: Lungs Clear, No Accessory Muscle Use, No Respiratory Distress Cardiovascular: Regular Rate, Rhythm, No Edema, Normal Peripheral Pulses Gastrointestinal: Non Tender, Soft Extremity: No Calf Tenderness, Inflammation (BL knees), Other (BL leg sensation intact, Leg weakness BL with L>R with flexion and extenion. Pain ) Skin: Normal Color Lymphatic: No Adenopathy Comments Patient has BL knee swelling and pain with palpation. Sensory is 2/2 BL in LE. He has 3/5 strength in BL flexion/extention. Assessment/Plan Assessment and Plan Assessment 1. Acute Gout Flare 2. CKD stage 3 3. HTN 4. High Cholesterol 5. Chronic Back pain 6. CAD 7. DM 8. Inner left ear growth Plan 12/06/20 - Continue IV steroids - Continue PT - Monitor labs - Sliding scale - continue home meds - left ear growth managed by [facility] He is doing much better today after receiving steroids. will continue current treatment course and reevaluate him in the morning. SUE FAM DO 12/07/20 0642: History of Present Illness History of Present Illness Reason for visit/HPI Severe gout Date of Admission 12/05/20 Allergies and Home Medications Allergies Coded Allergies: No Known Drug Allergies (Unverified , 01/25/17) Home Medications Allopurinol 100 Mg Tablet, 100 MG PO BID, (Reported) Bethanechol Chloride 50 Mg Tablet, 50 MG PO DAILY, (Reported) Clopidogrel Bisulfate 75 Mg Tablet, 75 MG PO HS, (Reported) Ferrous Sulfate 325 Mg Tablet, 325 MG PO HS, (Reported) Furosemide 40 Mg Tablet, 40 MG PO HS, (Reported) Glimepiride 4 Mg Tablet, 4 MG PO BID, (Reported) Hydrocodone/Acetaminophen 1 Each Tablet, 1 EA PO BID PRN for PAIN-MODERATE (5- 7), (Reported) Lisinopril 20 Mg Tablet, 20 MG PO HS, (Reported) Metoprolol Succinate 100 Mg Tab.er.24h, 100 MG PO DAILY, (Reported) Potassium Chloride 10 Meq Tablet.er, 10 MEQ PO HS, (Reported) Tamsulosin HCl 0.4 Mg Cap, 0.4 MG PO 1800 AFTER DINNER, (Reported) Zolpidem Tartrate 10 Mg Tablet, 10 MG PO HS, (Reported) Patient Home Medication List Home Medication List Reviewed: Yes Past Karmapb-Hjkusn-Kiwobw Hx Patient Social History Marrital Status: cohabiting Employed/Student: employed Smoking Status: Former Smoker Surgeries Pacemaker Cardiovascular High Cholesterol, Hypertension Musculoskeletal Gout Endocrine Endocrine Disorders: Diabetes, Non-Insulin dep Review of Systems Constitutional: see HPI Physical Exam General Appearance: No Apparent Distress, WD/WN, Chronically ill Respiratory: Chest Non Tender, Lungs Clear, Normal Breath Sounds, No Accessory Muscle Use, No Respiratory Distress Cardiovascular: Regular Rate, Rhythm, No Edema, No Gallop, No JVD, No Murmur, Normal Peripheral Pulses Neurologic/Psychiatric: Alert, Oriented x3, No Motor/Sensory Deficits, Normal Mood/Affect Assessment/Plan Assessment and Plan Severe gout Inability to ambulate Problems: (1) Gout attack Admission Diagnosis Admission Status: Observation Supervisory-Addendum Brief Verification & Attestation Participated in pt care: history, MDM, physical Personally performed: exam, history, MDM, supervision of care Care discussed with: Medical Student Procedures: n/a Results interpretation: Verified all documentation Verification and Attestation of Medical Student E/M Service A medical student performed and documented this service in my presence. I reviewed and verified all information documented by the medical student and made modifications to such information, when appropriate. I personally performed the physical exam and medical decision making. Sue Fam, Dec 07, 2020,06:42 [facility] Dec 06, 2020 14:15 SUE FAM DO Dec 07, 2020 06:42
[2020-12-06] MEDS: GLIMEPIRIDE 4 MG (AMARYL) TAB PO SCH (16:57)
[2020-12-06] MEDS: FERROUS SULF 325 MG (IRON) TAB PO SCH (16:58)
[2020-12-06] MEDS: KCL 10 MEQ TAB (MICRO K) PO SCH (16:58)
[2020-12-06] MEDS: FUROSEMIDE 40 MG (LASIX) TAB PO SCH (16:58)
[2020-12-06] MEDS ORDERED: TAMSULOSIN 0.4 MG (FLOMAX) CAP PO SCH (18:00)
[2020-12-06] MEDS: TAMSULOSIN 0.4 MG (FLOMAX) CAP PO SCH (18:12)
[2020-12-06] MEDS: ENOXAPARIN 40 MG/0.4 ML (LOVENOX) SYR SC SCH (18:13)
[2020-12-06] MEDS: lisINopril 20 MG (PRINIVIL) TABLET PO SCH (20:00)
[2020-12-06] MEDS: ALLOPURINOL 100 MG (ZYLOPRIM) TAB PO SCH (20:00)
[2020-12-06] MEDS: ZOLPIDEM 5 MG (AMBIEN) TAB PO SCH (20:00)
[2020-12-06] MEDS ORDERED: NON-FORMULARY MEDICATION 1 EA EA (Zolpidem Tartrate (Ambien) 10 MG) PO SCH (21:00)
[2020-12-07 03:44] VITALS: BP 128/72
[2020-12-07] MEDS: methylPREDNISolone 125 MG (Solu-MEDROL) VIAL IVP SCH (03:55)
[2020-12-07] MEDS: inSUlin ASPART (NovoLOG) 1 UNIT/0.01 ML (CHARGE PER UNIT) SC SCH ×4 (05:39→20:55)
[2020-12-07] MEDS: GLIMEPIRIDE 4 MG (AMARYL) TAB PO SCH ×2 (05:39→16:56)
[2020-12-07 06:08] LABS: BASOPHILS % (AUTO) 0 % (0-10); EOSINOPHILS % (AUTO) 0 % (0-10); HEMATOCRIT 37 % (40-54); HEMOGLOBIN 11.8 g/dL (13.3-17.7); LYMPHOCYTES # (AUTO) 0.8 10^3/uL (1.0-4.0); LYMPHOCYTES % (AUTO) 4 % (12-44); MEAN CORPUSCULAR HEMOGLOBIN 28 pg (25-34); MEAN CORPUSCULAR HGB CONC 32 g/dL (32-36); MEAN CORPUSCULAR VOLUME 87 fL (80-99); MEAN PLATELET VOLUME 10.5 fL (9.0-12.2); MONOCYTES # (AUTO) 0.2 10^3/uL (0.0-1.0); MONOCYTES % (AUTO) 1 % (0-12); NEUTROPHILS # (AUTO) 20.9 10^3/uL (1.8-7.8); NEUTROPHILS % (AUTO) 95 % (42-75); PLATELET COUNT 443 10^3/uL (130-400); WHITE BLOOD COUNT 22.1 10^3/uL (4.3-11.0)
[2020-12-07 06:20] LABS: ALBUMIN 3.3 GM/DL (3.2-4.5)
[2020-12-07 06:21] LABS: POTASSIUM 4.3 MMOL/L (3.6-5.0)
[2020-12-07 06:22] LABS: CALCIUM 8.6 MG/DL (8.5-10.1)
[2020-12-07 06:23] LABS: TOTAL PROTEIN 6.8 GM/DL (6.4-8.2)
[2020-12-07 06:25] LABS: BILIRUBIN,TOTAL 0.4 MG/DL (0.1-1.0)
[2020-12-07 06:27] LABS: CREATININE SERUM 1.59 MG/DL (0.60-1.30)
[2020-12-07] MEDS ORDERED: GLIMEPIRIDE 4 MG (AMARYL) TAB PO SCH (06:30)
--- NOTE | 2020-12-07 07:31 | Progress Note ---
Subjective Date Seen by a Provider: Dec 07, 2020 Time Seen by a Provider: 09:30 Subjective/Events-last exam Much improved status Able to walk with PT down halls Knees are improved Labs noted Elevated wbc due to steroids Decreasing steroids to 40mg IV [id number] Sugars high from steroids Wound care with Dr Castro outpatient Review of Systems General: Fatigue Musculoskeletal: leg pain Focused Exam Lactate Level 12/05/20 16:52: Lactic Acid Level 1.42 Objective Exam Last Set of Vital Signs Vital Signs Date Time Temp Pulse Resp B/P (MAP) Pulse Ox O2 Delivery O2 Flow Rate FiO2 12/07/20 03:44 36.3 79 16 128/72 (90) 98 Room Air Capillary Refill : I&O Intake and Output 12/07/20 00:00 Intake Total 3920 ml Output Total 750 ml Balance 3170 ml Intake Oral 1920 ml IV Total 2000 ml Output Urine Total 750 ml # Voids 2 General: Alert, Oriented X3, Cooperative, No Acute Distress Lungs: Clear to Auscultation, Normal Air Movement Heart: Regular Rate, Normal S1, Normal S2, No Murmurs Psych/Mental Status: Mental Status NL, Mood NL Results Lab Laboratory Tests 12/06/20 11:01: Glucometer 363H 12/06/20 12:05: White Blood Count 15.9H, Red Blood Count 4.39, Hemoglobin 12.1L, Hematocrit 38L, Mean Corpuscular Volume 87, Mean Corpuscular Hemoglobin 28, Mean Corpuscular Hemoglobin Concent 32, Red Cell Distribution Width 13.1, Platelet Count 440H, Mean Platelet Volume 10.4, Immature Granulocyte % (Auto) 1, Neutrophils (%) (Auto) 94H, Lymphocytes (%) (Auto) 4L, Monocytes (%) (Auto) 1, Eosinophils (%) (Auto) 0, Basophils (%) (Auto) 0, Neutrophils # (Auto) 15.0H, Lymphocytes # (Auto) 0.6L, Monocytes # (Auto) 0.2, Eosinophils # (Auto) 0.0, Basophils # (Auto) 0.0, Immature Granulocyte # (Auto) 0.1, Sodium Level 136, Potassium Level 4.3, Chloride Level 103, Carbon Dioxide Level 21, Anion Gap 12, Blood Urea Nitrogen 36H, Creatinine 1.71H, Estimat Glomerular Filtration Rate 40, BUN/Creatinine Ratio 21, Glucose Level 355H, Calcium Level 8.9, Corrected Calcium 9.3, Total Bilirubin 0.5, Aspartate Amino Transf (AST/SGOT) 13, Alanine Aminotransferase (ALT/SGPT) 15, Alkaline Phosphatase 136, Total Protein 7.4, Albumin 3.5 12/06/20 16:04: Glucometer 268H 12/06/20 19:53: Glucometer 254H 12/07/20 05:35: Glucometer 241H 12/07/20 05:59: White Blood Count 22.1H, Red Blood Count 4.28L, Hemoglobin 11.8L, Hematocrit 37L , Mean Corpuscular Volume 87, Mean Corpuscular Hemoglobin 28, Mean Corpuscular Hemoglobin Concent 32, Red Cell Distribution Width 13.2, Platelet Count 443H, Mean Platelet Volume 10.5, Immature Granulocyte % (Auto) 1, Neutrophils (%) (Auto) 95H, Lymphocytes (%) (Auto) 4L, Monocytes (%) (Auto) 1, Eosinophils (%) (Auto) 0, Basophils (%) (Auto) 0, Neutrophils # (Auto) 20.9H, Lymphocytes # (Auto) 0.8L, Monocytes # (Auto) 0.2, Eosinophils # (Auto) 0.0, Basophils # (Auto) 0.0, Immature Granulocyte # (Auto) 0.1, Sodium Level 136, Potassium Level 4.3, Chloride Level 104, Carbon Dioxide Level 19L, Anion Gap 13, Blood Urea Nitrogen 38H, Creatinine 1.59H, Estimat Glomerular Filtration Rate 43, BUN/Creatinine Ratio 24, Glucose Level 236H, Calcium Level 8.6, Corrected Calc ium 9.2, Total Bilirubin 0.4, Aspartate Amino Transf (AST/SGOT) 24, Alanine Aminotransferase (ALT/SGPT) 14, Alkaline Phosphatase 116, Total Protein 6.8, Albumin 3.3 Assessment/Plan Assessment/Plan Assess & Plan/Chief Complaint Assessment: Severe gout flare with inability to walk Bedridden status with decubitus ulcers BARRY on CKD CHF CAD DM OOC Severe weight loss HTN HLP Plan: Monitor sugars Monitor BP Diagnosis/Problems Diagnosis/Problems (1) Gout attack Clinical Quality Measures Admission Status Admission Dx Severe gout Inability to ambulate NICHOLAS GLOVER DO Dec 07, 2020 07:31
[2020-12-07 08:02] VITALS: BP 123/64
[2020-12-07] MEDS: meTOprolol SUCCINATE 100 MG (TOPROL XL) TAB PO SCH (08:51)
[2020-12-07] MEDS: CLOPIDOGREL 75 MG (PLAVIX) TABLET PO SCH (08:53)
[2020-12-07] MEDS: ALLOPURINOL 100 MG (ZYLOPRIM) TAB PO SCH ×2 (08:54→20:26)
[2020-12-07] MEDS: BETHANECHOL 25 MG (URECHOLINE) TAB PO SCH (08:55)
[2020-12-07] MEDS: methylPREDNISolone 40 MG/ML (Solu-MEDROL) VIAL IVP SCH ×2 (08:55→20:33)
[2020-12-07] MEDS: PANTOPRAZOLE 40 MG (PROTONIX) TAB PO SCH (08:55)
[2020-12-07] MEDS ORDERED: NON-FORMULARY MEDICATION 1 EA EA (Bethanechol Chloride 50 MG) PO SCH (09:00)
[2020-12-07] MEDS: HYDROcodone/APAP 7.5 MG/325 MG (LORTAB, LORCET PLUS) TABLET PO PRN ×2 (09:03→18:43)
[2020-12-07 11:59] VITALS: BP 136/75
--- NOTE | 2020-12-07 12:05 | Physical Therapy Daily Note ---
PT Daily Note-Current Subjective Pt reports his knees are 400% better than when he first came into the hospital. Pt rates (B) knee pain 7/10 and says swelling has decreased. Transfers SCALE: Activities may be completed with or without assistive devices. 1-Vmwzlozgyu-nquknjd completes the activity by him/herself with no assistance from a helper. 5-Set-up or Clean-up Assistance-helper sets up or cleans up; patient completes activity. [place] assists only prior to or following the activity. 4-Supervision or Touching Assistance-helper provides verbal cues and/or to uching/steadying and/or contact guard assistance as patient completes activity. Assistance may be provided throughout the activity or intermittently. 3-Partial/Moderate Assistance-helper does LESS THAN HALF the effort. [place] lifts, holds or supports trunk or limbs, but provides less than half the effort. 2-Substantial/Maximal Assistance-helper does MORE THAN HALF the effort. [place] lifts or holds trunk or limbs and provides more than half the effort. 0-Vtkqvaqxh-jecyls does ALL the effort. Patient does none of the effort to complete the activity. Or, the assistance of 2 or more helpers is required for the patient to complete the activity. If activity was not attempted, code reason: 7-Patient Refused. 9-Not Applicable-not attempted and the patient did not perform the activity before the current illness, exacerbation or injury. 10-Not Attempted due to Environmental Limitations-(lack of equipment, weather restraints, etc.). 88-Not Attempted due to Medical Conditions or Safety Concerns. Exercises Supine Ex: Ankle pumps, Quad Set, Glut sets Supine Reps: 20 Treatments Pt amb with FWW and CGA x 425ft at slow steady speed. Assessment Current Status: Good Progress Pt progressing appropriately. Pt mod (I) with transfers and appeared to do well with gait training today. Pt increased distance walked and did not require rest break. Pt instructed to continue above ther ex 2-3x/day. Pt verbalized un derstanding. Pt resting in recliner with call light and all needs met. PT Short Term Goals Short Term Goals Time Frame: Dec 14, 2020 Roll Left & Right: 6 Sit to lyin Lying to sitting on side of be: 6 Sit to stand: 6 Chair/tjp-lm-bzcqs transfer: 6 Toilet transfer: 6 Walk 10 feet: 6 Walk 50 feet with two turns: 6 Walk 150 feet: 6 PT Plan Treatment/Plan Treatment Plan: Continue Plan of Care Treatment Plan: Education, Functional Activity Orly, Functional Strength, Gait, Safety, Therapeutic Exercise, Transfers Treatment Duration: Dec 14, 2020 Frequency: 6 times per week Estimated Hrs Per Day: .25 hour per day Time/GCodes Time In: 915 Time Out: 930 Total Billed Treatment Time: 15 Total Billed Treatment 1, gait 15' KVNG RODRIGUEZ CPTA Dec 07, 2020 12:05
[2020-12-07 15:55] VITALS: BP 122/68
[2020-12-07] MEDS: KCL 10 MEQ TAB (MICRO K) PO SCH (16:56)
[2020-12-07] MEDS: FERROUS SULF 325 MG (IRON) TAB PO SCH (16:56)
[2020-12-07] MEDS: FUROSEMIDE 40 MG (LASIX) TAB PO SCH (16:56)
[2020-12-07] MEDS: TAMSULOSIN 0.4 MG (FLOMAX) CAP PO SCH (17:27)
[2020-12-07] MEDS: ENOXAPARIN 40 MG/0.4 ML (LOVENOX) SYR SC SCH (17:29)
[2020-12-07 20:24] VITALS: BP 136/85
[2020-12-07] MEDS: lisINopril 20 MG (PRINIVIL) TABLET PO SCH (20:25)
[2020-12-07] MEDS: ZOLPIDEM 5 MG (AMBIEN) TAB PO SCH (20:26)
[2020-12-07 23:35] VITALS: BP 114/65
[2020-12-08 04:00] VITALS: BP 131/75
[2020-12-08] MEDS: GLIMEPIRIDE 4 MG (AMARYL) TAB PO SCH (06:14)
[2020-12-08] MEDS: inSUlin ASPART (NovoLOG) 1 UNIT/0.01 ML (CHARGE PER UNIT) SC SCH ×2 (06:16→11:03)
[2020-12-08] MEDS: HYDROcodone/APAP 7.5 MG/325 MG (LORTAB, LORCET PLUS) TABLET PO PRN (06:20)
[2020-12-08 07:55] VITALS: BP 131/65
[2020-12-08 08:09] LABS: BASOPHILS % (AUTO) 0 % (0-10); EOSINOPHILS % (AUTO) 0 % (0-10); HEMATOCRIT 33 % (40-54); HEMOGLOBIN 10.6 g/dL (13.3-17.7); LYMPHOCYTES # (AUTO) 0.8 10^3/uL (1.0-4.0); LYMPHOCYTES % (AUTO) 5 % (12-44); MEAN CORPUSCULAR HEMOGLOBIN 28 pg (25-34); MEAN CORPUSCULAR HGB CONC 33 g/dL (32-36); MEAN CORPUSCULAR VOLUME 85 fL (80-99); MEAN PLATELET VOLUME 10.6 fL (9.0-12.2); MONOCYTES % (AUTO) 6 % (0-12); NEUTROPHILS # (AUTO) 15.9 10^3/uL (1.8-7.8); NEUTROPHILS % (AUTO) 89 % (42-75); PLATELET COUNT 389 10^3/uL (130-400); WHITE BLOOD COUNT 17.9 10^3/uL (4.3-11.0)
[2020-12-08] MEDS: BETHANECHOL 25 MG (URECHOLINE) TAB PO SCH (08:18)
[2020-12-08] MEDS: methylPREDNISolone 40 MG/ML (Solu-MEDROL) VIAL IVP SCH (08:19)
[2020-12-08] MEDS: ALLOPURINOL 100 MG (ZYLOPRIM) TAB PO SCH (08:19)
[2020-12-08] MEDS: CLOPIDOGREL 75 MG (PLAVIX) TABLET PO SCH (08:19)
[2020-12-08] MEDS: meTOprolol SUCCINATE 100 MG (TOPROL XL) TAB PO SCH (08:19)
[2020-12-08] MEDS: PANTOPRAZOLE 40 MG (PROTONIX) TAB PO SCH (08:19)
[2020-12-08 08:25] LABS: ALBUMIN 2.9 GM/DL (3.2-4.5); BILIRUBIN,TOTAL 0.3 MG/DL (0.1-1.0); CREATININE SERUM 1.61 MG/DL (0.60-1.30); POTASSIUM 4.1 MMOL/L (3.6-5.0); TOTAL PROTEIN 5.7 GM/DL (6.4-8.2)
[2020-12-08 11:32] VITALS: BP 130/74
[2020-12-08] MEDS ORDERED: PRED10TA22 PO (11:38)
[2020-12-08] MEDS ORDERED: OXYC1TAB87 PO (11:38)
[2020-12-08] MEDS ORDERED: PANT40TA52 PO (11:38)
--- NOTE | 2020-12-08 11:43 | Discharge Summary ---
Diagnosis/Chief Complaint Date of Admission Dec 05, 2020 at 15:34 Date of Discharge Discharge Date: Dec 08, 2020 Discharge Diagnosis Gout flare Decubitus ulcers DM HTN CKD Reason Hospital Visit Severe gout Discharge Summary Discharge Physical Examination Allergies: Coded Allergies: No Known Drug Allergies (Unverified , 01/25/17) Vitals & I&Os Vital Signs Date Time Temp Pulse Resp B/P (MAP) Pulse Ox O2 Delivery O2 Flow Rate FiO2 12/08/20 11:32 36.6 78 16 130/74 (92) 96 Room Air General Appearance: Alert, Oriented X3, Cooperative Respiratory: Clear to Auscultation Cardiovascular: Regular Rate Neuro: Normal Gait, Normal Speech, Strength at 5/5 X4 Ext Psych/Mental Status: Mental Status NL Hospital Course Was the Problem List Reviewed?: Yes Uncomplicated hospital course after admitted from my clinic due to inability to walk from severe gout flare. Decubitus ulcers management initiated and sepsis w/u was negative. Steroids helped patient tremendously and narcotics required. BM returned to normal and patient was able to be DC home with several consultations as outpatient including Dr Nguyen, Dr Villareal, PT and my office. Labs (last 24 hrs) Laboratory Tests 12/05/20 16:52: White Blood Count 14.6H, Red Blood Count 4.20L, Hemoglobin 11.8L, Hematocrit 37L , Mean Corpuscular Volume 87, Mean Corpuscular Hemoglobin 28, Mean Corpuscular Hemoglobin Concent 32, Red Cell Distribution Width 13.4, Platelet Count 383, Mean Platelet Volume 10.4, Immature Granulocyte % (Auto) 0, Neutrophils (%) (Auto) 80H, Lymphocytes (%) (Auto) 8L, Monocytes (%) (Auto) 10, Eosinophils (%) (Auto) 2, Basophils (%) (Auto) 1, Neutrophils # (Auto) 11.6H, Lymphocytes # (Auto) 1.2, Monocytes # (Auto) 1.4H, Eosinophils # (Auto) 0.2, Basophils # (Auto) 0.1, Immature Granulocyte # (Auto) 0.1, Neutrophils % (Manual) 85, Lymphocytes % (Manual) 3, Monocytes % (Manual) 11, Eosinophils % (Manual) 1, Basophils % (Manual) 0, Band Neutrophils 0, Blood Morphology Comment NORMAL, Erythrocyte Sedimentation Rate 90H, Sodium Level 138, Potassium Level 4.3, Chloride Level 103, Carbon Dioxide Level 24, Anion Gap 11, Blood Urea Nitrogen 26H, Creatinine 1.48H, Estimat Glomerular Filtration Rate 47, BUN/Creatinine Ratio 18, Glucose Level 156H, Mean Blood Glucose 163H, Hemoglobin A1c 7.3H, Lactic Acid Level 1.42, Uric Acid 5.9, Calcium Level 8.9, Corrected Calcium 9.2, Total Bilirubin 0.6, Aspartate Amino Transf (AST/SGOT) 19, Alanine Aminotransf erase (ALT/SGPT) 14, Alkaline Phosphatase 137H, C-Reactive Protein High Sensitivity 11.47H, Total Protein 7.6, Albumin 3.6, Procalcitonin 0.08, Thyroid Stimulating Hormone (TSH) 0.72 12/05/20 17:30: Glucometer 137H 12/05/20 19:40: Glucometer 186H 12/05/20 21:20: Urine Color YELLOW, Urine Clarity SL CLOUDY, Urine pH 6.0, Urine Specific [place] 1.015L, Urine Protein NEGATIVE, Urine Glucose (UA) NEGATIVE, Urine Ketones NEGATIVE, Urine Nitrite NEGATIVE, Urine Bilirubin NEGATIVE, Urine Urobilinogen 1.0, Urine Leukocyte Esterase NEGATIVE, Urine RBC (Auto) NEGATIVE, Urine RBC NONE, Urine WBC 0-2, Urine Crystals PRESENTH, Urine Amorphous Sediment RARE OLGA URATESH, Urine Bacteria NEGATIVE, Urine Casts PRESENT, Urine Hyaline Casts 10-25H, Urine Mucus NEGATIVE, Urine Culture Indicated NO 12/06/20 05:45: Glucometer 214H 12/06/20 11:01: Glucometer 363H 12/06/20 12:05: White Blood Count 15.9H, Red Blood Count 4.39, Hemoglobin 12.1L, Hematocrit 38L, Mean Corpuscular Volume 87, Mean Corpuscular Hemoglobin 28, Mean Corpuscular Hemoglobin Concent 32, Red Cell Distribution Width 13.1, Platelet Count 440H, Mean Platelet Volume 10.4, Immature Granulocyte % (Auto) 1, Neutrophils (%) (Auto) 94H, Lymphocytes (%) (Auto) 4L, Monocytes (%) (Auto) 1, Eosinophils (%) (Auto) 0, Basophils (%) (Auto) 0, Neutrophils # (Auto) 15.0H, Lymphocytes # (Auto) 0.6L, Monocytes # (Auto) 0.2, Eosinophils # (Auto) 0.0, Basophils # (Auto) 0.0, Immature Granulocyte # (Auto) 0.1, Sodium Level 136, Potassium Level 4.3, Chloride Level 103, Carbon Dioxide Level 21, Anion Gap 12, Blood Urea Nitrogen 36H, Creatinine 1.71H, Estimat Glomerular Filtration Rate 40, BUN/Creatinine Ratio 21, Glucose Level 355H, Calcium Level 8.9, Corrected Calcium 9.3, Total Bilirubin 0.5, Aspartate Amino Transf (AST/SGOT) 13, Alanine Aminotransferase (ALT/SGPT) 15, Alkaline Phosphatase 136, Total Protein 7.4, Albumin 3.5 12/06/20 16:04: Glucometer 268H 12/06/20 19:53: Glucometer 254H 12/07/20 05:35: Glucometer 241H 12/07/20 05:59: White Blood Count 22.1H, Red Blood Count 4.28L, Hemoglobin 11.8L, Hematocrit 37L , Mean Corpuscular Volume 87, Mean Corpuscular Hemoglobin 28, Mean Corpuscular Hemoglobin Concent 32, Red Cell Distribution Width 13.2, Platelet Count 443H, Mean Platelet Volume 10.5, Immature Granulocyte % (Auto) 1, Neutrophils (%) (Auto) 95H, Lymphocytes (%) (Auto) 4L, Monocytes (%) (Auto) 1, Eosinophils (%) (Auto) 0, Basophils (%) (Auto) 0, Neutrophils # (Auto) 20.9H, Lymphocytes # (Auto) 0.8L, Monocytes # (Auto) 0.2, Eosinophils # (Auto) 0.0, Basophils # (Auto) 0.0, Immature Granulocyte # (Auto) 0.1, Sodium Level 136, Potassium Level 4.3, Chloride Level 104, Carbon Dioxide Level 19L, Anion Gap 13, Blood Urea Nitrogen 38H, Creatinine 1.59H, Estimat Glomerular Filtration Rate 43, BUN/Creatinine Ratio 24, Glucose Level 236H, Calcium Level 8.6, Corrected Calcium 9.2, Total Bilirubin 0.4, Aspartate Amino Transf (AST/SGOT) 24, Alanine Aminotransferase (ALT/SGPT) 14, Alkaline Phosphatase 116, Total Protein 6.8, Albumin 3.3, Procalcitonin 0.07 12/07/20 11:41: Glucometer 405*H 12/07/20 16:47: Glucometer 316H 12/07/20 20:44: Glucometer 226H 12/08/20 06:04: Glucometer 220H 12/08/20 08:00: White Blood Count 17.9H, Red Blood Count 3.82L, Hemoglobin 10.6L, Hematocrit 33L , Mean Corpuscular Volume 85, Mean Corpuscular Hemoglobin 28, Mean Corpuscular Hemoglobin Concent 33, Red Cell Distribution Width 13.3, Platelet Count 389, Mean Platelet Volume 10.6, Immature Granulocyte % (Auto) 1, Neutrophils (%) (Auto) 89H, Lymphocytes (%) (Auto) 5L, Monocytes (%) (Auto) 6, Eosinophils (%) (Auto) 0, Basophils (%) (Auto) 0, Neutrophils # (Auto) 15.9H, Lymphocytes # (Auto) 0.8L, Monocytes # (Auto) 1.0, Eosinophils # (Auto) 0.0, Basophils # (Auto) 0.0, Immature Granulocyte # (Auto) 0.2H, Sodium Level 137, Potassium Leve l 4.1, Chloride Level 106, Carbon Dioxide Level 19L, Anion Gap 12, Blood Urea Nitrogen 46H, Creatinine 1.61H, Estimat Glomerular Filtration Rate 43, BUN/Creatinine Ratio 29, Glucose Level 248H, Calcium Level 8.0L, Corrected Calcium 8.9, Total Bilirubin 0.3, Aspartate Amino Transf (AST/SGOT) 27, Alanine Aminotransferase (ALT/SGPT) 20, Alkaline Phosphatase 101, Total Protein 5.7L, Albumin 2.9L 12/08/20 10:17: Glucometer 316H Pending Labs Laboratory Tests 12/05/20 16:52: White Blood Count 14.6, Red Blood Count 4.20, Hemoglobin 11.8, Hematocrit 37, Mean Corpuscular Volume 87, Mean Corpuscular Hemoglobin 28, Mean Corpuscular Hemoglobin Concent 32, Red Cell Distribution Width 13.4, Platelet Count 383, Mean Platelet Volume 10.4, Immature Granulocyte % (Auto) 0, Neutrophils (%) (Auto) 80, Lymphocytes (%) (Auto) 8, Monocytes (%) (Auto) 10, Eosinophils (%) (Auto) 2, Basophils (%) (Auto) 1, Neutrophils # (Auto) 11.6, Lymphocytes # (Auto) 1.2, Monocytes # (Auto) 1.4, Eosinophils # (Auto) 0.2, Basophils # (Auto) 0.1, Immature Granulocyte # (Auto) 0.1, Neutrophils % (Manual) 85, Lymphocytes % (Manual) 3, Monocytes % (Manual) 11, Eosinophils % (Manual) 1, Basophils % (Manual) 0, Band Neutrophils 0, Blood Morphology Comment NORMAL, Erythrocyte Sedimentation Rate 90, Sodium Level 138, Potassium Level 4.3, Chloride Level 103, Carbon Dioxide Level 24, Anion Gap 11, Blood Urea Nitrogen 26, Creatinine 1.48, Estimat Glomerular Filtration Rate 47, BUN/Creatinine Ratio 18, Glucose Level 156, Mean Blood Glucose 163, Hemoglobin A1c 7.3, Lactic Acid Level 1.42, Uric Acid 5.9, Calcium Level 8.9, Corrected Calcium 9.2, Total Bilirubin 0.6, Aspartate Amino Transf (AST/SGOT) 19, Alanine Aminotransferase (ALT/SGPT) 14, Alkaline Phosphatase 137, C-Reactive Protein High Sensitivity 11.47, Total Protein 7.6, Albumin 3.6, Procalcitonin 0.08, Thyroid Stimulating Hormone (TSH) 0.72 12/05/20 17:30: Glucometer 137 12/05/20 19:40: Glucometer 186 12/05/20 21:20: Urine Color YELLOW, Urine Clarity SL CLOUDY, Urine pH 6.0, Urine Specific [place] 1.015, Urine Protein NEGATIVE, Urine Glucose (UA) NEGATIVE, Urine Ketones NEGATIVE, Urine Nitrite NEGATIVE, Urine Bilirubin NEGATIVE, Urine Urobilinogen 1.0, Urine Leukocyte Esterase NEGATIVE, Urine RBC (Auto) NEGATIVE, Urine RBC NONE, Urine WBC 0-2, Urine Crystals PRESENT, Urine Amorphous Sediment RARE OLGA URATES, Urine Bacteria NEGATIVE, Urine Casts PRESENT, Urine Hyaline Casts 10-25, Urine Mucus NEGATIVE, Urine Culture Indicated NO 12/06/20 05:45: Glucometer 214 12/06/20 11:01: Glucometer 363 12/06/20 12:05: White Blood Count 15.9, Red Blood Count 4.39, Hemoglobin 12.1, Hematocrit 38, Mean Corpuscular Volume 87, Mean Corpuscular Hemoglobin 28, Mean Corpuscular Hemoglobin Concent 32, Red Cell Distribution Width 13.1, Platelet Count 440, Mean Platelet Volume 10.4, Immature Granulocyte % (Auto) 1, Neutrophils (%) (Auto) 94, Lymphocytes (%) (Auto) 4, Monocytes (%) (Auto) 1, Eosinophils (%) (Auto) 0, Basophils (%) (Auto) 0, Neutrophils # (Auto) 15.0, Lymphocytes # (Auto) 0.6, Monocytes # (Auto) 0.2, Eosinophils # (Auto) 0.0, Basophils # (Auto) 0.0, Immature Granulocyte # (Auto) 0.1, Sodium Level 136, Potassium Level 4.3, Chloride Level 103, Carbon Dioxide Level 21, Anion Gap 12, Blood Urea Nitrogen 36, Creatinine 1.71, Estimat Glomerular Filtration Rate 40, BUN/Creatinine Ratio 21, Glucose Level 355, Calcium Level 8.9, Corrected Calcium 9.3, Total Bilirubin 0.5, Aspartate Amino Transf (AST/SGOT) 13, Alanine Aminotransferase (ALT/SGPT) 15, Alkaline Phosphatase 136, Total Protein 7.4, Albumin 3.5 12/06/20 16:04: Glucometer 268 12/06/20 19:53: Glucometer 254 12/07/20 05:35: Glucometer 241 12/07/20 05:59: White Blood Count 22.1, Red Blood Count 4.28, Hemoglobin 11.8, Hematocrit 37, Mean Corpuscular Volume 87, Mean Corpuscular Hemoglobin 28, Mean Corpuscular Hemoglobin Concent 32, Red Cell Distribution Width 13.2, Platelet Count 443, Mean Platelet Volume 10.5, Immature Granulocyte % (Auto) 1, Neutrophils (%) (Auto) 95, Lymphocytes (%) (Auto) 4, Monocytes (%) (Auto) 1, Eosinophils (%) (Auto) 0, Basophils (%) (Auto) 0, Neutrophils # (Auto) 20.9, Lymphocytes # (Auto) 0.8, Monocytes # (Auto) 0.2, Eosinophils # (Auto) 0.0, Basophils # (Auto) 0.0, Immature Granulocyte # (Auto) 0.1, Sodium Level 136, Potassium Level 4.3, Chloride Level 104, Carbon Dioxide Level 19, Anion Gap 13, Blood Urea Nitrogen 38, Creatinine 1.59, Estimat Glomerular Filtration Rate 43, BUN/Creatinine Ratio 24, Glucose Level 236, Calcium Level 8.6, Corrected Calcium 9.2, Total Bilirubin 0.4, Aspartate Amino Transf (AST/SGOT) 24, Alanine Aminotransferase (ALT/SGPT) 14, Alkaline Phosphatase 116, Total Protein 6.8, Albumin 3.3, Procalcitonin 0.07 12/07/20 11:41: Glucometer 405 12/07/20 16:47: Glucometer 316 12/07/20 20:44: Glucometer 226 12/08/20 06:04: Glucometer 220 12/08/20 08:00: White Blood Count 17.9, Red Blood Count 3.82, Hemoglobin 10.6, Hematocrit 33, Mean Corpuscular Volume 85, Mean Corpuscular Hemoglobin 28, Mean Corpuscular Hemoglobin Concent 33, Red Cell Distribution Width 13.3, Platelet Count 389, Mean Platelet Volume 10.6, Immature Granulocyte % (Auto) 1, Neutrophils (%) (Auto) 89, Lymphocytes (%) (Auto) 5, Monocytes (%) (Auto) 6, Eosinophils (%) (Auto) 0, Basophils (%) (Auto) 0, Neutrophils # (Auto) 15.9, Lymphocytes # (Auto) 0.8, Monocytes # (Auto) 1.0, Eosinophils # (Auto) 0.0, Basophils # (Auto) 0.0, Immature Granulocyte # (Auto) 0.2, Sodium Level 137, Potassium Level 4.1, Chloride Level 106, Carbon Dioxide Level 19, Anion Gap 12, Blood Urea Nitrogen 46, Creatinine 1.61, Estimat Glomerular Filtration Rate 43, BUN/Creatinine Ratio 29, Glucose Level 248, Calcium Level 8.0, Corrected Calcium 8.9, Total Bilirubin 0.3, Aspartate Amino Transf (AST/SGOT) 27, Alanine Aminotransferase (ALT/SGPT) 20, Alkaline Phosphatase 101, Total Protein 5.7, Albumin 2.9 12/08/20 10:17: Glucometer 316 Discharge Home Medications: Active Scripts Active Percocet 5-325 mg Tablet (Oxycodone HCl/Acetaminophen) 1 Each Tablet 1 Tab PO BID MDD 6 TABS Prednisone 10 Mg Tab.ds.pk 20 Mg PO DAILY Take 2 tabs(20mg) once daily for 3 days then 1 tab daily for 3 days Pantoprazole Sodium 40 Mg Tablet.dr 40 Mg PO DAILY Reported Furosemide 40 Mg Tablet 40 Mg PO HS K-Tab ER (Potassium Chloride) 10 Meq Tablet.er 10 Meq PO HS Allopurinol 100 Mg Tablet 100 Mg PO BID Hydrocodone-Acetamin 7.5-325 (Hydrocodone/Acetaminophen) 1 Each Tablet 1 Ea PO BID PRN Clopidogrel (Clopidogrel Bisulfate) 75 Mg Tablet 75 Mg PO HS Lisinopril 20 Mg Tablet 20 Mg PO HS Flomax (Tamsulosin HCl) 0.4 Mg Cap 0.4 Mg PO 1800 AFTER DINNER Ferosul (Ferrous Sulfate) 325 Mg Tablet 325 Mg PO HS Ambien (Zolpidem Tartrate) 10 Mg Tablet 10 Mg PO HS Metoprolol Succinate 100 Mg Tab.er.24h 100 Mg PO DAILY Bethanechol Chloride 50 Mg Tablet 50 Mg PO DAILY Glimepiride 4 Mg Tablet 4 Mg PO BID Instructions to patient/family Please see electronic discharge instructions given to patient. Dr Glover office will call you Wednesday with appt this week Dr Castro for wound care will be arranged by Dr Cristel Villareal for knee injections will be arranged by Dr Cristel Lopez PT will be arranged by Dr Glover Diagnosis/Problems Diagnosis/Problems (1) Gout attack Qualifiers: Qualified Codes: M10.9 - Gout, unspecified NICHOLAS GLOVER DO Dec 08, 2020 11:43
== END 2020-12-08 14:47 | disposition home health service (06) ==
LOC: 4TH 15:34 → UNDOADMOB 15:34 → 4TH 15:45 → UNDODISOB 12-08 13:10
PROVIDERS: ADMIT Internal Medicine; ATTEND Internal Medicine
DX: M10.9 Gout, unspecified (principal); E11.40 Type 2 diabetes mellitus with diabetic neuropathy, unspecified; E11.622 Type 2 diabetes mellitus with other skin ulcer; I13.0 Hypertensive heart and chronic kidney disease with heart failure and stage 1 through stage 4 chronic kidney disease, or unspecified chronic kidney disease; E11.22 Type 2 diabetes mellitus with diabetic chronic kidney disease; N18.30 Chronic kidney disease, stage 3 unspecified; I50.9 Heart failure, unspecified; N17.9 Acute kidney failure, unspecified; H83.8X2 Other specified diseases of left inner ear; G89.29 Other chronic pain; M54.5 Low back pain; R26.2 Difficulty in walking, not elsewhere classified; E78.5 Hyperlipidemia, unspecified; I25.10 Atherosclerotic heart disease of native coronary artery without angina pectoris; L89.629 Pressure ulcer of left heel, unspecified stage; E78.00 Pure hypercholesterolemia, unspecified; Z87.891 Personal history of nicotine dependence; Z98.890 Other specified postprocedural states; Z95.0 Presence of cardiac pacemaker; Z79.02 Long term (current) use of antithrombotics/antiplatelets; Z79.891 Long term (current) use of opiate analgesic
CPT/HCPCS: 36415; 80053; 81000; 82962; 83036; 83605; 84145; 84443; 84550; 85007; 85025; 85027; 85652; 86141; 99211; G0378

== ENCOUNTER → 2021-02-17 | Outpatient (CLI) | payer MEDICARE ==
[~2021-02-17] MED LIST changes: +BETH50TA2 PO; +FERR325T24 PO; +HYDR-3817 PO; +LISI20TA26 PO; +OXYC1TAB87 PO; +POTA10TA PO; +PRED10TA22 PO; +ZOLP10TA PO
== END ==
LOC: CARD 13:16
PROVIDERS: ATTEND Internal Medicine
DX: R06.00 Dyspnea, unspecified (principal); I08.0 Rheumatic disorders of both mitral and aortic valves; R09.02 Hypoxemia
CPT/HCPCS: 93306; 94761

== ENCOUNTER → 2021-12-05 | Outpatient (CLI) | payer MEDICARE ==
[~2021-12-05] MED LIST changes: -BETH25TA PO; +BETH25TA2 PO; +POTA-179 PO; -POTA10TA36 PO; +POTA10TA37 PO; -POTA20TA15 PO
--- NOTE | 2021-12-05 16:51 | Diagnostic Imaging Report ---
INDICATION: Dyspnea on exertion. TIME OF EXAM: 3:24 p.m. COMPARISON: Correlation is made with prior chest from 05/27/2018. FINDINGS: The heart is enlarged. There is blunting of the costophrenic angles posteriorly bilaterally consistent with trace pleural fluid. No infiltrate or failure is detected. There is no pneumothorax. IMPRESSION: Cardiomegaly with trace bilateral pleural effusions. Dictated by: Dictated on workstation # [id number]
== END ==
LOC: RAD 15:01
PROVIDERS: ATTEND Internal Medicine Cardiovascular Disease
DX: I51.7 Cardiomegaly (principal); J90 Pleural effusion, not elsewhere classified
CPT/HCPCS: 71046

== ENCOUNTER → 2021-12-16 | Outpatient (CLI) | payer MEDICARE ==
[~2021-12-16] MED LIST changes: +CATHETER FLUSH 10 ML SYR IV PRN; +HOLD METFORMIN - RECEIVED CONTRAST 20 ML VIAL IV SCH; +IOHEXOL 350 MG/ML 150 ML (OMNIPAQUE 350) VIAL IV ONE; +NS 100 ML (IVPB) BAG IV ONE
[2021-12-16 09:10] LABS: CALCIUM 9.3 MG/DL (8.5-10.1); CREATININE SERUM 1.38 MG/DL (0.60-1.30); POTASSIUM 3.7 MMOL/L (3.6-5.0)
--- NOTE | 2021-12-16 13:03 | Diagnostic Imaging Report ---
INDICATION: Peripheral vascular disease. TECHNIQUE: CTA of the aorta and lower extremities was performed with IV contrast bolus, axial slices, and 3D reconstructions. Dose reduction protocol was used. COMPARISON: There is no prior study for comparison. FINDINGS: The visualized portions of the lung bases are clear except for some mild bibasilar atelectasis. There is cardiomegaly. There is no pleural fluid or free intraperitoneal air. The liver and gallbladder appear unremarkable. The spleen, adrenals, and pancreas are normal. The kidneys bilaterally show no hydronephrosis or mass. There is some cortical thinning in both kidneys. There is no retroperitoneal mass or adenopathy. There is no ascites or abnormal fluid collection. The visualized bowel loops appear unremarkable. There is no soft tissue mass or fluid collection in the lower extremities. The abdominal aorta shows diffuse atherosclerotic plaquing but no evidence of aneurysm. The celiac trunk and SMA are patent and without stenosis. The right renal artery is patent and without stenosis. The left renal artery shows irregular plaquing with a high-grade stenosis beyond the ostium. The inferior mesenteric artery is patent. There is diffuse plaquing of the aortic bifurcation. The common iliac arteries, however, show no significant stenosis. The internal and external iliac arteries are patent with mild plaquing. On the right side, the common femoral artery and profunda femoris artery are patent. There is a bifid profundal trunk with stenosis at the fundal origins. The right SFA is patent with diffuse plaquing. There are moderate stenoses in the distal SFA. There is a high-grade focal stenosis of the junction of the SFA and popliteal artery on the right side. The popliteal artery below this point shows diffuse plaquing without stenosis. The trifurcation is patent. The anterior tibial artery appears to occlude in the mid calf. The posterior tibial artery and peroneal artery show intermittent disease down to the ankle. On the left side, the common femoral artery and profundus femoris artery are patent. The SFA on the left side is patent with diffuse plaquing. There is a focal significant stenosis in the left SFA in the lower thigh. The left popliteal artery is patent with diffuse plaquing. The trifurcation on the left side is patent. The left anterior tibial artery is occlude in the proximal calf. The peroneal artery and posterior tibial artery are patent with diffuse disease. IMPRESSION: There is cardiomegaly with bibasilar atelectasis. There is cortical thinning of both kidneys. There is no abdominal mass or abnormal fluid collection. CTA images demonstrate diffuse atherosclerotic plaquing of the aorta without evidence of aneurysm. There is a significant left renal artery stenosis. There are stenoses of the origins of the profunda femoris arteries on the right side. There is moderate stenosis in the distal SFA on the right side and high-grade stenosis of the junction of the right SFA and popliteal artery. There is two vessel runoff on the right side. On the left side, there is high-grade stenosis of the lower SFA with two vessel runoff distally. Dictated by: Dictated on workstation # [id number]
== END ==
LOC: RAD 10:15
PROVIDERS: ATTEND Nurse Practitioner Family
DX: I70.213 Atherosclerosis of native arteries of extremities with intermittent claudication, bilateral legs (principal); J98.11 Atelectasis; I51.7 Cardiomegaly; N28.89 Other specified disorders of kidney and ureter
CPT/HCPCS: 36415; 75635; 80048

== ENCOUNTER → 2021-12-16 | Outpatient (CLI) | payer MEDICARE ==
[~2021-12-16] MED LIST changes: -CATHETER FLUSH 10 ML SYR IV PRN; -HOLD METFORMIN - RECEIVED CONTRAST 20 ML VIAL IV SCH; -IOHEXOL 350 MG/ML 150 ML (OMNIPAQUE 350) VIAL IV ONE; -NS 100 ML (IVPB) BAG IV ONE
[2021-12-16 09:00] LABS: ALBUMIN 4.1 GM/DL (3.2-4.5); BILIRUBIN,TOTAL 0.6 MG/DL (0.1-1.0); CALCIUM 9.3 MG/DL (8.5-10.1); CREATININE SERUM 1.38 MG/DL (0.60-1.30); POTASSIUM 3.7 MMOL/L (3.6-5.0); TOTAL PROTEIN 6.8 GM/DL (6.4-8.2)
== END ==
LOC: LAB 08:16
PROVIDERS: ATTEND Internal Medicine Cardiovascular Disease
DX: I11.0 Hypertensive heart disease with heart failure (principal); I50.23 Acute on chronic systolic (congestive) heart failure
CPT/HCPCS: 36415; 80053; 83735; 83880

== ENCOUNTER → 2021-12-25 | Outpatient (CLI) | payer MEDICARE | LOC: CARD 14:00 | PROVIDERS: ATTEND Internal Medicine Cardiovascular Disease | DX: I08.0 Rheumatic disorders of both mitral and aortic valves (principal) | CPT/HCPCS: 93306 ==

== ENCOUNTER → 2022-03-19 | Outpatient (CLI) | payer MEDICARE | PROVIDERS: ATTEND Internal Medicine Cardiovascular Disease | DX: I50.23 Acute on chronic systolic (congestive) heart failure (principal); I34.0 Nonrheumatic mitral (valve) insufficiency | CPT/HCPCS: 93306 ==

== ENCOUNTER → 2022-05-21 | Outpatient (CLI) | payer MEDICARE ==
[~2022-05-21] MED LIST changes: -BETH50TA2 PO; +BETH50TA3 PO; +CATHETER FLUSH 10 ML SYR IVP PRN; +HEParin (CENTRAL IV FLUSH) 500 UNIT/5 ML SYR ONE
== END ==
LOC: CARD 12:49
PROVIDERS: ATTEND Internal Medicine Cardiovascular Disease
DX: I25.5 Ischemic cardiomyopathy (principal)
CPT/HCPCS: 78472; A9560

== ENCOUNTER 2022-07-20 16:08 | Inpatient (IN) | payer MEDICARE ==
[~2022-07-20] VITALS: Ht 177 cm; Wt 77.6 kg
[~2022-07-20 16:08] MED LIST changes: -CATHETER FLUSH 10 ML SYR IVP PRN; -HEParin (CENTRAL IV FLUSH) 500 UNIT/5 ML SYR ONE; +POTA-177 PO; -POTA10TA37 PO
[2022-07-20] MEDS ORDERED: polyethylene glycoL POWDER 17 GM (MIRALAX) PACK PO PRN (17:00)
[2022-07-20] MEDS ORDERED: diphenhydrAMINE 50 MG/ML INJ (BENADRYL) IVP PRN (17:00)
[2022-07-20] MEDS ORDERED: LACTULOSE SYRUP 10GM/15ML (ENULOSE) 30ML UDC PO PRN (17:00)
[2022-07-20] MEDS ORDERED: ONDANSETRON 4 MG/2 ML (SDV) Z0FRAN IV PRN (17:00)
[2022-07-20] MEDS ORDERED: HYDROmorphone 2 MG/ML VIAL (DILAUDID) IV PRN (17:00)
[2022-07-20] MEDS ORDERED: diphenhydrAMINE 25 MG TAB (BENADRYL) PO PRN (17:00)
[2022-07-20] MEDS ORDERED: ONDANSETRON 4 MG (ZOFRAN) ORAL DISSOLVE TAB PO PRN (17:00)
[2022-07-20] MEDS ORDERED: MILK OF MAGNESIA 400 MG/5 ML 30 ML UDC PO PRN (17:00)
[2022-07-20] MEDS ORDERED: VANCOMYCIN INJECTION 0.1 MG in NS (IVPB) 250 ML IV SCH (17:00)
[2022-07-20] MEDS ORDERED: ANTACID SUSP 30 ML UDC (MYLANTA) PO PRN (17:00)
[2022-07-20] MEDS ORDERED: MELATONIN 3 MG TABLET PO PRN (17:00)
[2022-07-20] MEDS ORDERED: BISACODYL 10 MG SUPP (DULCOLAX) PR PRN (17:00)
[2022-07-20] MEDS ORDERED: CALCIUM CARBONATE 500 MG (TUMS) TAB.CHEW PO PRN (17:00)
[2022-07-20] MEDS ORDERED: RT-ALBUTEROL/IPRATROPIUM 3 ML (DUONEB) VIAL INH PRN (17:15)
[2022-07-20 17:16] VITALS: BP 154/67
--- NOTE | 2022-07-20 17:24 | Diagnostic Imaging Report ---
EXAMINATION: Right foot, two views. HISTORY: Toe pain. COMPARISON: None available. FINDINGS: There are few calcific densities projecting over the right great toe. No fracture. No dislocation. Joint spaces are normal. IMPRESSION: 1. No fracture in the right foot. Dictated by: Dictated on workstation # [id number]
[2022-07-20] MEDS ORDERED: PIPERACILLIN SODIUM/TAZOBACTAM 4.5 GM in NS (IVPB) 100 ML IV NR (17:30)
[2022-07-20] MEDS ORDERED: VANCOMYCIN 1500 MG/NS 500 ML IVPB IV NR ×2 (18:00)
[2022-07-20] MEDS ORDERED: FLU QUAD HIGH DOSE 240 MCG/0.7 ML 2022-23 (FLUZONE) IM ONE (18:00)
[2022-07-20 18:04] LABS: HEMATOCRIT 40 % (40-54); HEMOGLOBIN 13.2 g/dL (13.3-17.7); LYMPHOCYTES # (AUTO) 0.7 10^3/uL (1.0-4.0); MEAN CORPUSCULAR HEMOGLOBIN 30 pg (25-34); MEAN CORPUSCULAR HGB CONC 33 g/dL (32-36); MONOCYTES % (AUTO) 11 % (0-12)
[2022-07-20 18:05] LABS: BASOPHILS # (AUTO) 0.1 10^3/uL (0.0-0.1); BASOPHILS % (AUTO) 0 % (0-10); EOSINOPHILS % (AUTO) 0 % (0-10); LYMPHOCYTES % (AUTO) 4 % (12-44); MEAN CORPUSCULAR VOLUME 92 fL (80-99); MEAN PLATELET VOLUME 11.4 fL (9.0-12.2); MONOCYTES # (AUTO) 1.9 10^3/uL (0.0-1.0); NEUTROPHILS # (AUTO) 14.8 10^3/uL (1.8-7.8); NEUTROPHILS % (AUTO) 84 % (42-75); PLATELET COUNT 240 10^3/uL (130-400); WHITE BLOOD COUNT 17.6 10^3/uL (4.3-11.0)
[2022-07-20] MEDS ORDERED: SPIR25TA5 PO (18:10)
[2022-07-20] MEDS ORDERED: METO50TA7 PO (18:10)
[2022-07-20 18:15] LABS: POTASSIUM 4.8 MMOL/L (3.6-5.0)
[2022-07-20] MEDS ORDERED: DAPA10TA PO (18:15)
[2022-07-20 18:16] LABS: CALCIUM 9.6 MG/DL (8.5-10.1)
[2022-07-20 18:17] LABS: TOTAL PROTEIN 7.3 GM/DL (6.4-8.2)
[2022-07-20 18:19] LABS: BILIRUBIN,TOTAL 0.8 MG/DL (0.1-1.0)
[2022-07-20 18:21] LABS: CREATININE SERUM 2.13 MG/DL (0.60-1.30)
[2022-07-20] MEDS ORDERED: [UNRECOGNIZED DRUG - OTHER] PO (18:24)
[2022-07-20] MEDS ORDERED: FERR-65 PO (18:24)
[2022-07-20] MEDS: NS IV 1000 ML 1,000 ML IV SCH (18:31)
[2022-07-20 18:38] LABS: NEUTROPHILS % (MANUAL) 85 %
[2022-07-20 18:39] LABS: BASOPHILS % (MANUAL) 1 %; LYMPHOCYTES % (MANUAL) 3 %; MONOCYTES % (MANUAL) 11 %; RBC MORPH NORMAL
--- NOTE | 2022-07-20 19:25 | CONSULTATION REPORT ---
DATE OF SERVICE: ATTENDING PRIMARY CARE PHYSICIAN: Sue Fam DO. HISTORY OF PRESENT ILLNESS: The patient is a 71-year-old male who we have seen before in the past. He was seen in Dr. Fam's clinic today, where he was found to have a right foot third digit skin necrosis. There was also a mild amount of surrounding redness and erythema. He states that this has been around for some amount of time, just did not seek medical attention. He also does have a history of peripheral vascular disease as well as diabetes. An initial foot x-ray did not show any osteomyelitis; however, due to the way that the toe looks, he will undergo an MRI to evaluate the potential for osteomyelitis. He does have some peripheral neuropathy. He does not report any pain in his bilateral lower extremities. PAST MEDICAL HISTORY: Hypertension, hypercholesterolemia, coronary artery disease, peripheral vascular disease, COPD, history of pneumonia, diabetes, degenerative joint disease, and gout. PAST SURGICAL HISTORY: Lipoma excision posterior neck in 2009. ALLERGIES: No known drug allergies. MEDICATIONS: Allopurinol 100 mg b.i.d., bethanechol 50 mg daily, Plavix 75 mg daily, iron 325 mg daily, Lasix 40 mg daily, glimepiride 4 mg b.i.d., hydrocodone p.r.n., lisinopril 20 mg daily, metoprolol 100 mg daily, potassium 10 mEq daily, tamsulosin 0.4 mg daily, and zolpidem 10 mg each day at bedtime. SOCIAL HISTORY: Previous smoker, quit in 1997, 30 pack years. Does drink beer daily. FAMILY HISTORY: Noncontributory. REVIEW OF SYSTEMS: This is a well-nourished male currently in no acute distress. He is not experiencing any shortness of breath and difficulty in breathing. No chest pain, palpitations, diaphoresis. No nausea, vomiting, no diarrhea or constipation, no red blood per rectum, and no dark tarry stools. No fever, chills, and no recent inadvertent weight loss. All other review of systems negative. PHYSICAL EXAMINATION: VITAL SIGNS: Temperature 37.5, blood pressure 154/67, pulse 86, respirations 22, and pulse ox 97% on room air. CHEST: A few scattered wheezes and rhonchi bilaterally. HEART: Regular and no murmurs. EXTREMITIES: No lower extremity edema and negative Homans sign. HEENT: No scleral icterus. NECK: No cervical lymphadenopathy. ABDOMEN: Soft, nontender, and nondistended. SKIN: Along the left foot third digit is a dry necrosis throughout the entirety of both the volar and plantar surface with a small amount of redness and erythema at the metatarsophalangeal joint. There is no fluctuance to indicate any abscess. LABORATORY DATA: WBC 17.6, hemoglobin 13.2, hematocrit 40, platelets 240, BUN 24, and creatinine 2.13. 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 We do suspect an osteomyelitis and we will get an MRI to evaluate for this. If osteomyelitis is identified, he will need an amputation of that toe. If there is no osteomyelitis, we will get wound care involved for a superficial debridement and continued wound care. Job ID: [id number] DocumentID: [id number] Dictated Date: 07/20/2022 18:46:19 Shipping/Receiving Clerk Date: 07/20/2022 19:24:54 Dictated By: MARYLU DELGADO MD
[2022-07-20 20:00] VITALS: BP 114/57
[2022-07-20] MEDS: DOCUSATE SODIUM 100 MG (COLACE) CAP PO SCH (20:32)
[2022-07-20] MEDS: SENNOSIDES 8.6 MG (SENOKOT) TAB PO SCH (20:32)
[2022-07-20] MEDS: inSUlin ASPART (NovoLOG) 1 UNIT/0.01 ML (CHARGE PER UNIT) SC SCH (21:29)
[2022-07-20] MEDS: RT-ALBUTEROL/IPRATROPIUM 3 ML (DUONEB) VIAL INH SCH (21:37)
[2022-07-20 23:21] VITALS: BP 110/55
[2022-07-21] VITALS (9 sets, daily range): BP systolic 115–164; BP diastolic 53–86
[2022-07-21] MEDS: FERROUS SULF 325 MG (IRON) TAB PO SCH ×2 (00:12→20:11)
[2022-07-21] MEDS: meTOproloL SUCCINATE 50 MG (TOPROL XL) TAB PO SCH ×2 (00:13→20:12)
[2022-07-21] MEDS: BETHANECHOL 25 MG (URECHOLINE) TAB PO SCH ×2 (00:13→20:12)
[2022-07-21] MEDS: oxyCODONE/APAP 5/325MG (PERCOCET 5) TABLET PO SCH ×3 (00:14→20:12)
[2022-07-21] MEDS: SACUBITRIL/VALSARTAN 24/26 MG (ENTRESTO) TABLET PO SCH ×3 (00:14→20:12)
[2022-07-21] MEDS: ALLOPURINOL 100 MG (ZYLOPRIM) TAB PO SCH ×3 (00:15→20:12)
[2022-07-21] MEDS: ZOLPIDEM 5 MG (AMBIEN) TAB PO SCH ×2 (00:22→20:11)
[2022-07-21] MEDS: PIPERACILLIN SODIUM/TAZOBACTAM 4.5 GM in NS (IVPB) 100 ML IV SCH ×4 (04:13→23:39)
[2022-07-21] MEDS: inSUlin ASPART (NovoLOG) 1 UNIT/0.01 ML (CHARGE PER UNIT) SC SCH ×4 (05:57→21:29)
[2022-07-21] MEDS: PANTOPRAZOLE 40 MG (PROTONIX) TAB PO SCH (06:00)
[2022-07-21] MEDS: RT-ALBUTEROL/IPRATROPIUM 3 ML (DUONEB) VIAL INH SCH ×4 (07:16→18:53)
[2022-07-21] MEDS: NS IV 1000 ML 1,000 ML IV SCH ×2 (08:59→16:18)
--- NOTE | 2022-07-21 09:06 | Consultation-Cardiology ---
HPI-Cardiology Cardiology Consultation: Date of Consultation 07/21/22 Time Seen by a Provider: 09:10 Date of Admission 07-20-22 Attending Physician Sue Fam DO Admitting Physician Admitting Physician: Sue Fam DO Attending Physician: Sue Fam DO Consulting Physician VIVIAN MONTANA HPI: Chief Complaint: Right third toe wound Mr. Edge is a 71 yr old male admitted to [facility] from Dr. Fam's office after he presented with a right third toe wound. 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 He had on closed toe shoes. He reports no broken skin, but bruising. He states about a week ago the toe started to change color, swelling persisted and drainage. He denies any fever chills. No c/o n/v/d. No c/o chest pain or SOB. Review of Systems-Cardiology Review of Systems Constitutional: As described under HPI Eyes: No vision change Ears/Nose/Throat: No epistaxis, No recent hearing loss Respiratory: As described under HPI Cardiovascular: As described under HPI Gastrointestinal: No diarrhea, No nausea, No vomiting Genitourinary: no symptoms reported Musculoskeletal: no symptoms reported Skin: As described under HPI Psychiatric/Neurological: No anxiety, No depression, No seizure, No focal weakness, No syncope Hematologic: No bleeding abnormalities [id number]-Ixpjec Hx Patient Social History Smoking Status: Former Smoker 2nd Hand Smoke Exposure: No Have you traveled recently?: Yes Where was recent travel?: [place] Alcohol Use?: No Pt feels they are or have been: No Past Medical History PMH As described under Assessment. Family Medical History Family Medical History: No fam history of early CAD or SCD Allergies and Home Medications Allergies Coded Allergies: No Known Drug Allergies (Unverified , 01/25/17) Patient Home Medication List Acetaminophen (Tylenol Extra Strength) 500 Mg Tablet, 1,000 MG PO Q8H PRN for PAIN-MILD (1-4), (Reported) Entered as Reported by: MARIA DE JESUS PIEDRA on 07/21/22 1115 Last Action: Reviewed Allopurinol (Allopurinol) 100 Mg Tablet, 100 MG PO BID, (Reported) Entered as Reported by: MARIA DE JESUS PIEDRA on 12/06/20 0857 Last Action: Reviewed Amoxicillin/Potassium Clav (Augmentin 500-125 Tablet) 500 Mg-125 Mg Tablet, 1 EACH PO BID Prescribed by: MARYLU MAHARAJ on 07/21/22 1508 Bethanechol Chloride (Bethanechol Chloride) 50 Mg Tablet, 50 MG PO HS, (Reported) Entered as Reported by: MARIA DE JESUS PIEDRA on 12/06/20856 Last Action: Reviewed Clopidogrel Bisulfate (Clopidogrel) 75 Mg Tablet, 75 MG PO DAILY, (Reported) Entered as Reported by: MARIA DE JESUS PIEDRA on 12/06/20856 Last Action: Reviewed Dapagliflozin Propanediol (Farxiga) 10 Mg Tablet, 10 MG PO HS, (Reported) Entered as Reported by: GABRIEL MEDINA on 07/20/221814 Last Action: Reviewed Ferrous Sulfate (Feosol) 325 Mg (65 Mg Iron) Tablet, 325 MG PO HS, (Reported) Entered as Reported by: GABRIEL MEDINA on 07/20/221823 Last Action: Reviewed Furosemide (Furosemide) 40 Mg Tablet, 40 MG PO Q48H, (Reported) Entered as Reported by: MARIA DE JESUS PIEDRA on 12/06/20900 Last Action: Reviewed Metoprolol Succinate (Metoprolol Succinate) 50 Mg Tab.er.24h, 50 MG PO HS, (Reported) Entered as Reported by: GABRIEL MEDINA on 07/20/221809 Last Action: Reviewed Oxycodone HCl/Acetaminophen (Oxycodone-Acetaminophen 5-325) 5 Mg-325 Mg Tablet, 1 EA PO BID PRN for PAIN-MODERATE (5-7), (Reported) Entered as Reported by: MARIA DE JESUS PIEDRA on 07/21/221114 Last Action: Reviewed Pantoprazole Sodium (Pantoprazole Sodium) 40 Mg Tablet.dr, 40 MG PO DAILY, (Reported) Entered as Reported by: MARIA DEJ ESUS PIEDRA on 07/21/221114 Last Action: Reviewed Sacubitril/Valsartan (Entresto 49 mg-51 mg Tablet) 49 Mg-51 Mg Tablet, 1 EA PO BID, (Reported) Entered as Reported by: MARIA DE JESUS PIEDRA on 07/21/221114 Last Action: Reviewed Spironolactone (Spironolactone) 25 Mg Tablet, 25 MG PO DAILY, (Reported) Entered as Reported by: GABRIEL MEDINA on 07/20/221809 Last Action: Reviewed Tamsulosin HCl (Flomax) 0.4 Mg Cap, 0.4 MG PO HS, (Reported) Entered as Reported by: MARIA DE JESUS PIEDRA on 12/06/20856 Last Action: Reviewed Zolpidem Tartrate (Ambien) 10 Mg Tablet, 10 MG PO HS, (Reported) Entered as Reported by: MARIA DE JESUS PIEDRA on 12/06/20856 Last Action: Reviewed Discontinued Medications Ferrous Sulfate (Ferosul) 325 Mg Tablet, 325 MG PO HS, (Reported) Discontinued Reason: No Longer Taking Entered as Reported by: MARIA DE JESUS PIEDRA on 12/06/20856 Last Action: Discontinued Glimepiride (Glimepiride) 4 Mg Tablet, 4 MG PO BID, (Reported) Discontinued Reason: No Longer Taking Entered as Reported by: ALEXANDER VANN on 05/16/181416 Last Action: Discontinued Hydrocodone/Acetaminophen (Hydrocodone-Acetamin 7.5-325) 1 Each Tablet, 1 EA PO BID PRN for PAIN-MODERATE (5-7), (Reported) Discontinued Reason: No Longer Taking Entered as Reported by: MARIA DE JESUS PIEDRA on 12/06/20856 Last Action: Discontinued Lisinopril (Lisinopril) 20 Mg Tablet, 20 MG PO HS, (Reported) Discontinued Reason: No Longer Taking Entered as Reported by: MARIA DE JESUS PIEDRA on 12/06/20856 Last Action: Discontinued Metoprolol Succinate (Metoprolol Succinate) 100 Mg Tab.er.24h, 100 MG PO DAILY, (Reported) Discontinued Reason: No Longer Taking Entered as Reported by: MARIA DE JESUS PIEDRA on 12/06/20856 Last Action: Discontinued Oxycodone HCl/Acetaminophen (Percocet 5-325 mg Tablet) 1 Each Tablet, 1 TAB PO BID Discontinued Reason: Duplicate Order Prescribed by: SUE FAM on 12/08/201137 Last Action: Discontinued Pantoprazole Sodium (Pantoprazole Sodium) 40 Mg Tablet.dr, 40 MG PO DAILY Discontinued Reason: Duplicate Order Prescribed by: SUE FAM on 12/08/201137 Last Action: Discontinued Potassium Chloride (K-Tab ER) 10 Meq Tablet.er, 10 MEQ PO HS, (Reported) Discontinued Reason: No Longer Taking Entered as Reported by: MARIA DE JESUS PIEDRA on 12/06/20 0900 Last Action: Discontinued Prednisone (Prednisone) 10 Mg Tab.ds.pk, 20 MG PO DAILY Discontinued Reason: No Longer Taking Prescribed by: SUE FAM on 12/08/20 1138 Last Action: Discontinued [Ertresto 49-51 mg ] , 1 TAB PO BID, (Reported) Discontinued Reason: Duplicate Order Entered as Reported by: GABRIEL MEDINA on 07/20/22 1824 Last Action: Discontinued Physical Exam-Cardiology Physical Exam Vital Signs/I&O 07/21/22 07/21/22 07/21/22 07/21/22 03:17 07:08 07:17 08:00 Temp 36.6 Pulse 73 71 Resp 16 B/P (MAP) 120/64 (82) Pulse Ox 95 94 96 O2 Delivery Room Air Room Air Room Air 07/21/22 07/21/22 07/21/22 07/21/22 08:02 11:04 11:45 12:36 Temp 36.9 37.1 Pulse 89 74 91 Resp 16 18 B/P (MAP) 130/61 (84) 117/53 (74) Pulse Ox 95 96 98 O2 Delivery Room Air Room Air Room Air 07/21/22 00:00 Intake Total 500 ml Balance 500 ml Capillary Refill : Constitutional: AAO x 3, well-developed, well-nourished HEENT: PERRL, hearing is well preserved, oral hygience is good Neck: No carotid bruit; carotid pulses are 2 + bilaterally Respiratory: No accessory muscle use, No respiratory distress; chest expansion is symmetric, chest is bilaterally symmetric, lungs clear to auscultation Cardiovascular: regular rate-rhythm; No JVD; S1 and S2 Gastrointestinal: No tender; soft, round, audible bowel sounds Extremities: no lower extremity edema bilateral, wound (Right foot, third toe, with swelling, dark discoloration, foul odor and serous drainage) Neurologic/Psychiatric: grossly intact (moves all extremities) Skin: other (see above) Data Review Labs Laboratory Tests 07/20/22 17:50: White Blood Count 17.6H, Red Blood Count 4.38, Hemoglobin 13.2L, Hematocrit 40, Mean Corpuscular Volume 92, Mean Corpuscular Hemoglobin 30, Mean Corpuscular Hemoglobin Concent 33, Red Cell Distribution Width 13.4, Platelet Count 240, Mean Platelet Volume 11.4, Immature Granulocyte % (Auto) 1, Neutrophils (%) (Auto) 84H, Lymphocytes (%) (Auto) 4L, Monocytes (%) (Auto) 11, Eosinophils (%) (Auto) 0, Basophils (%) (Auto) 0, Neutrophils # (Auto) 14.8H, Lymphocytes # (Auto) 0.7L, Monocytes # (Auto) 1.9H, Eosinophils # (Auto) 0.0, Basophils # (Auto) 0.1, Immature Granulocyte # (Auto) 0.1, Neutrophils % (Manual) 85, Lymphocytes % (Manual) 3, Monocytes % (Manual) 11, Basophils % (Manual) 1, Blood Morphology Comment NORMAL, Sodium Level 134L, Potassium Level 4.8, Chloride Level 99, Carbon Dioxide Level 24, Anion Gap 11, Blood Urea Nitrogen 24H, Creatinine 2.13H, Estimat Glomerular Filtration Rate 32, BUN/Creatinine Ratio 11, Glucose Level 269H, Lactic Acid Level 1.19, Calcium Level 9.6, Corrected Calcium 9.6, Total Bilirubin 0.8, Aspartate Amino Transf (AST/SGOT) 13, Alanine Aminotransferase (ALT/SGPT) 8, Alkaline Phosphatase 114, Total Protein 7.3, Albumin 4.0, Procalcitonin 0.15H 07/20/22 20:49: Glucometer 200H 07/21/22 05:32: Glucometer 119H 07/21/22 11:00: White Blood Count 13.8H, Red Blood Count 3.88L, Hemoglobin 11.6L, Hematocrit 36L , Mean Corpuscular Volume 92, Mean Corpuscular Hemoglobin 30, Mean Corpuscular Hemoglobin Concent 33, Red Cell Distribution Width 13.6, Platelet Count 207, Mean Platelet Volume 11.2, Immature Granulocyte % (Auto) 0, Neutrophils (%) (Auto) 83H, Lymphocytes (%) (Auto) 5L, Monocytes (%) (Auto) 11, Eosinophils (%) (Auto) 0, Basophils (%) (Auto) 0, Neutrophils # (Auto) 11.5H, Lymphocytes # (Auto) 0.8L, Monocytes # (Auto) 1.4H, Eosinophils # (Auto) 0.0, Basophils # (Auto) 0.1, Immature Granulocyte # (Auto) 0.1, Sodium Level 137, Potassium Level 3.9, Chloride Level 103, Carbon Dioxide Level 21, Anion Gap 13, Blood Urea Nitrogen 25H, Creatinine 2.00H, Estimat Glomerular Filtration Rate 35, BUN/Creatinine Ratio 13, Glucose Level 127H, Calcium Level 8.6, Corrected Calcium 9.2, Total Bilirubin 0.9, Aspartate Amino Transf (AST/SGOT) 9, Alanine Aminotransferase (ALT/SGPT) 7, Alkaline Phosphatase 90, Total Protein 6.2L, Alb umin 3.3 Microbiology 07/21/22 Gram Stain, Resulted Pending 07/21/22 Anaerobic Culture, Resulted Pending 07/21/22 Surgical Culture - Preliminary, Resulted Radiology NAME: JENNI EDGE [facility] REC#: [id number] PT STATUS: ADM IN : 1950 PHYSICIAN: SUE FAM DO ADMIT DATE: 07/20/22 Signed Date of Exam:07/20/22 FOOT, RIGHT, 2 VIEW EXAMINATION: Right foot, two views. HISTORY: Toe pain. COMPARISON: None available. FINDINGS: There are few calcific densities projecting over the right great toe. No fracture. No dislocation. Joint spaces are normal. IMPRESSION: 1. No fracture in the right foot. Dictated by: Dictated on workstation # [id number] Dict: 07/20/221720 Trans: 07/20/221834 AS6 [id number] Interpreted by: CODI SHORT MD Electronically signed by: CODI SHORT MD 07/20/221834 NAME: JENNI EDGE [facility] REC#: [id number] PT STATUS: ADM IN : 1950 PHYSICIAN: SUE FAM DO ADMIT DATE: 07/20/22 Signed Date of Exam:07/21/22 MRI RT LOWER EXT W/O CON PROCEDURE: MRI right lower extremity without contrast. TECHNIQUE: Multiplanar, multisequence non contrast-enhanced MRI of the right lower extremity was accomplished. INDICATION: Osteomyelitis. Right toe pain. COMPARISON: Radiograph from 07/20/2022 FINDINGS: There is marked motion artifact on multiple sequences. No acute fracture is seen. There is bone marrow edema in the 3rd toe middle and distal phalanges. There is T1-weighted hypointensity in the 3rd toe distal phalanx. There is marked edema in the soft tissues about the 3rd toe. No drainable fluid collection is seen on this noncontrast exam. There is susceptibility artifact at the plantar medial aspect of the right great toe. There is mild generalized muscular atrophy which may be neurogenic. Flexor and extensor tendons appear to be intact. IMPRESSION: 1. Osteomyelitis of the 3rd toe distal phalanx. Osteitis of the 3rd toe middle phalanx. 2. Soft tissue edema in the 3rd toe, likely from infection, with no drainable fluid collection seen. 3. Susceptibility artifact at the plantar great toe, may represent calcifications or possibly tiny foreign bodies. Dictated by: Dictated on workstation # [id number] Dict: 07/21/22 0936 Trans: 07/21/22 1026 [id number] Interpreted by: LISA PATRICK MD Electronically signed by: LISA PATRICK MD 07/21/22 1026 A/P-Cardiology Assessment/Admission Diagnosis Right foot third digit necrotic toe with osteomylitis - management by Dr. Maharaj and Dr. Fam CAD and ischemic cardiomyopathy: - Card cath of 02/09/17: near-total occlusion of LAD treated with overlapping Resolute 2.25x30 and 2.5x14 stents and both postdilated with a 2.75 mm balloon to 2.9 mm diameter; LCX and RCA had relatively mod disease; elevated LVEDP - MPI of April 16, 2020 showed inferoapical myocardial infarction with a small amt of tosin-infarct ischemia. Anteroapical akinesis. LVEF 30%. Chronic systolic and diastolic CHF: - due to ischemic cardiomyopathy and severe mitral regurg - Echo 02/17/21: LVEF 30-35%, mod cardiomegaly (LV, RA, LA), mod to sev MR, AoV sclerosis w/o stenosis, mild MR, PASP 45-50 mmHg - Echocardiogram of 12-25-21 showed mod concentric hypertrophy. LVEF 25-30%. Akinesis of the anterior myocardium. LA is mod dilated. RA is mildly dilated. Mod MR, directed eccentrically. AoV thickening, consistent with sclerosis with mild AoR. A trivial free flowing pericardial effusion is identified. - Echo for 02/25/22 (as part of participation in MitraClip trial at [facility]): LVEF 37%, [place] device with mild residual MR, severe LV dilatation, global hypo, apical akinesis - Echocardiogram of 03-19-22 showed LVEF 30-35%. Akinesis of the apical myocardium. Grade 1 diastolic dysfunction. Mild to mod MR. AoV thickening, consistent with sclerosis. Trivial regurg. PASP 20 mmHg - MUGA 05-21-22 showed: Ischemic cardiomyopathy with anteroapical akinesis and with left ventricular ejection fraction of 43%. Severe MR: - Echocardiogram from 02-17-21 showed mod to severe MR - Referred to Dr. Rodriguez per pt request - advised he keep referral to [facility] - Referred to [facility]: Dr. Garg at [facility] has offered a minimally invasive mitral valve replacement, but the pt request an even less invasive approach and desires a mitraclip - S/P successful mitraclip placement by Dr. Vazquez at [facility] on 08-26-21 Hypertension: - controlled H/o GI bleed : - May 2018 hosp with GI bleed requiring multiple transfusions. - Endoscopy by Dr Maharaj in early May 2018: reflux esophagitis (grade 2), no HH, moderate gastritis with small antral erosion.mild chronic stage 1 ext and int hemorrhoids. - Long hosp (April and May 2018) with diffuse myopathy and weakness following GI bleed and blood transfusions. Thrombocytosis during hosp of May 2018, most likely reactive, followed and treated by Dr Maher Chronic joint pains of unclear etiology: - gout vs RMSF vs statins. DM II: - followed by PCP H/o tobaccoism: - Quit tobacco use in or around 1999 CKD III: - likely in some part d/t diabetic nephropathy, no evidence contrast nephropathy post cath of 02/09/17 - following with Dr. Citlalli Hernandez of [facility] - Labs of 03/17/21: Na 144, Gluc 168, Cr 1.7, BNP 2110 - Labs of 03/27/21: Na 139, K 4.5, Gluc 214, Cr 3.2 - Labs of 04-17-21 : Na 141, K 4.3, BUN 50, Cr 1.5 - Labs of 09-01-21: Na 142, K 4.6, BUN 45, Cr 1.8 - Labs of 2-4-22: Na 141, K 4.2, BUN 22, Cr 1.5 - Labs of 12-16-21: Na 143, K 3.7, BUN 24, Cr 1.38 - Labs of 01/14/22 : Na 143, K 4.5, Gluc 182, Cr 1.7 - Labs of 01/21/22: Na 142, K 4.5, Gluc 191, Cr 1.8 - Labs of 02/04/22: Na 140, K 4.3, Gluc 188, Cr 2.2 PFT of March 31, 2017: spirometry is WNL Carotid dz: Mild carotid arterial disease on carotid u/s of 11/17/18 No AAA on AAA screening scan of 11/17/18 PAD with claudication - CTA images of 12-16-2021 (following abnormal segmentals) demonstrate diffuse atherosclerotic plaquing of the aorta without evidence of aneurysm. There is a significant left renal artery stenosis. There are stenoses of the origins of the profunda femoris arteries on the right side. There is moderate stenosis in the distal SFA on the right side and high-grade stenosis of the junction of the right SFA and popliteal artery. There is two vessel runoff on the right side. On the left side, there is high- grade stenosis of the lower SFA with two vessel runoff distally. Discussion and Recomendations Right foot, third digit with necrosis - management per medical/surgical services - MRI pending - arterial doppler today We have spoken with Dr. Fam and Dr. Maharaj, Mr. Edge and his significant oth er extensively. Mr. Edge and his significant other are not agreeable to peripheral angiography with possible intervention d/t concerns about potential worsening renal function d/t contrast nephropathy. He states he will reconsider if the wound does not heal post toe amputation. Continue home cardiac medications for heart failure Monitor lab Replace electrolytes as indicated Further recs will be based on his hospital course We would like to thank Dr. Fam for this consult Clinical Quality Measures DVT/VTE Risk/Contraindication: Contraindications-Mechi: Other *list below* Other: lower leg cellulitis VIVIAN SILVA Jul 21, 2022 09:06
--- NOTE | 2022-07-21 09:44 | Diagnostic Imaging Report ---
PROCEDURE: MRI right lower extremity without contrast. TECHNIQUE: Multiplanar, multisequence non contrast-enhanced MRI of the right lower extremity was accomplished. INDICATION: Osteomyelitis. Right toe pain. COMPARISON: Radiograph from 07/20/2022 FINDINGS: There is marked motion artifact on multiple sequences. No acute fracture is seen. There is bone marrow edema in the 3rd toe middle and distal phalanges. There is T1-weighted hypointensity in the 3rd toe distal phalanx. There is marked edema in the soft tissues about the 3rd toe. No drainable fluid collection is seen on this noncontrast exam. There is susceptibility artifact at the plantar medial aspect of the right great toe. There is mild generalized muscular atrophy which may be neurogenic. Flexor and extensor tendons appear to be intact. IMPRESSION: 1. Osteomyelitis of the 3rd toe distal phalanx. Osteitis of the 3rd toe middle phalanx. 2. Soft tissue edema in the 3rd toe, likely from infection, with no drainable fluid collection seen. 3. Susceptibility artifact at the plantar great toe, may represent calcifications or possibly tiny foreign bodies. Dictated by: Dictated on workstation # [id number]
[2022-07-21 11:06] LABS: BASOPHILS # (AUTO) 0.1 10^3/uL (0.0-0.1); BASOPHILS % (AUTO) 0 % (0-10); EOSINOPHILS % (AUTO) 0 % (0-10); HEMATOCRIT 36 % (40-54); HEMOGLOBIN 11.6 g/dL (13.3-17.7); LYMPHOCYTES # (AUTO) 0.8 10^3/uL (1.0-4.0); LYMPHOCYTES % (AUTO) 5 % (12-44); MEAN CORPUSCULAR HEMOGLOBIN 30 pg (25-34); MEAN CORPUSCULAR HGB CONC 33 g/dL (32-36); MEAN CORPUSCULAR VOLUME 92 fL (80-99); MEAN PLATELET VOLUME 11.2 fL (9.0-12.2); MONOCYTES # (AUTO) 1.4 10^3/uL (0.0-1.0); MONOCYTES % (AUTO) 11 % (0-12); NEUTROPHILS # (AUTO) 11.5 10^3/uL (1.8-7.8); NEUTROPHILS % (AUTO) 83 % (42-75); PLATELET COUNT 207 10^3/uL (130-400); WHITE BLOOD COUNT 13.8 10^3/uL (4.3-11.0)
[2022-07-21] MEDS: SPIRONOLACTONE 25 MG (ALDACTONE) TAB PO SCH (11:14)
[2022-07-21] MEDS: DOCUSATE SODIUM 100 MG (COLACE) CAP PO SCH ×2 (11:14→20:12)
[2022-07-21] MEDS ORDERED: ACET-2267 PO (11:15)
[2022-07-21] MEDS ORDERED: SACU1TAB7 PO (11:15)
[2022-07-21] MEDS ORDERED: OXYC1TAB11 PO (11:15)
[2022-07-21] MEDS ORDERED: PANT40TA52 PO (11:15)
[2022-07-21] MEDS: SENNOSIDES 8.6 MG (SENOKOT) TAB PO SCH ×2 (11:15→20:12)
[2022-07-21 11:25] LABS: ALBUMIN 3.3 GM/DL (3.2-4.5); POTASSIUM 3.9 MMOL/L (3.6-5.0)
[2022-07-21 11:27] LABS: CALCIUM 8.6 MG/DL (8.5-10.1)
[2022-07-21 11:28] LABS: TOTAL PROTEIN 6.2 GM/DL (6.4-8.2)
[2022-07-21 11:29] LABS: BILIRUBIN,TOTAL 0.9 MG/DL (0.1-1.0)
--- NOTE | 2022-07-21 13:00 | Consultation-Cardiology ---
HPI-Cardiology Cardiology Consultation: Date of Consultation 07/21/22 Time Seen by a Provider: 12:10 Date of Admission Attending Physician Sue Glover DO Admitting Physician Admitting Physician: Sue Glover DO Attending Physician: Sue Glover DO Consulting Physician RHYS HINKLE MD, MA, FACP, FACC, MUSCOGEEAI, CCDS HPI: Chief Complaint: Right third toe wound Mr. Henning is a 71 yr old male admitted to [facility] from Dr. Glover's office after he presented with a right third toe wound. 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 He had on closed toe shoes. He reports no broken skin, but bruising. He states about a week ago the toe started to change color, swelling persisted and drainage. He denies any fever chills. No c/o n/v/d. No c/o chest pain or SOB. Review of Systems-Cardiology Review of Systems Constitutional: As described under HPI Eyes: No vision change Ears/Nose/Throat: No epistaxis, No recent hearing loss Respiratory: As described under HPI Cardiovascular: As described under HPI Gastrointestinal: No diarrhea, No nausea, No vomiting Genitourinary: no symptoms reported Musculoskeletal: no symptoms reported Skin: As described under HPI Psychiatric/Neurological: No anxiety, No depression, No seizure, No focal weakness, No syncope Hematologic: No bleeding abnormalities PSQ-[id number] Hx Patient Social History Smoking Status: Former Smoker 2nd Hand Smoke Exposure: No Have you traveled recently?: Yes Where was recent travel?: [place] Alcohol Use?: No Pt feels they are or have been: No Past Medical History PMH As described under Assessment. Family Medical History Family Medical History: No fam history of early CAD or SCD Allergies and Home Medications Allergies Coded Allergies: No Known Drug Allergies (Unverified , 01/25/17) Patient Home Medication List Home Medication List Reviewed: Yes Acetaminophen (Tylenol Extra Strength) 500 Mg Tablet, 1,000 MG PO Q8H PRN for PAIN-MILD (1-4), (Reported) Entered as Reported by: MARIA DE JESUS PIEDRA on 07/21/22 1115 Last Action: Reviewed Allopurinol (Allopurinol) 100 Mg Tablet, 100 MG PO BID, (Reported) Entered as Reported by: MARIA DE JESUS PIEDRA on 3/5/21 0857 Last Action: Reviewed Bethanechol Chloride (Bethanechol Chloride) 50 Mg Tablet, 50 MG PO HS, (Reported) Entered as Reported by: MARIA DE JESUS PIEDRA on 12/06/20856 Last Action: Reviewed Clopidogrel Bisulfate (Clopidogrel) 75 Mg Tablet, 75 MG PO DAILY, (Reported) Entered as Reported by: MARIA DE JESUS PIEDRA on 12/06/20856 Last Action: Reviewed Dapagliflozin Propanediol (Farxiga) 10 Mg Tablet, 10 MG PO HS, (Reported) Entered as Reported by: GABRIEL MEDINA on 07/20/221814 Last Action: Reviewed Ferrous Sulfate (Feosol) 325 Mg (65 Mg Iron) Tablet, 325 MG PO HS, (Reported) Entered as Reported by: GABRIEL MEDIAN on 07/20/221823 Last Action: Reviewed Furosemide (Furosemide) 40 Mg Tablet, 40 MG PO Q48H, (Reported) Entered as Reported by: MARIA DE JESUS PIEDRA on 12/06/20900 Last Action: Reviewed Metoprolol Succinate (Metoprolol Succinate) 50 Mg Tab.er.24h, 50 MG PO HS, (Reported) Entered as Reported by: GABRIEL MEDINA on 07/20/221809 Last Action: Reviewed Oxycodone HCl/Acetaminophen (Oxycodone-Acetaminophen 5-325) 5 Mg-325 Mg Tablet, 1 EA PO BID PRN for PAIN-MODERATE (5-7), (Reported) Entered as Reported by: MARIA DE JESUS PIEDRA on 07/21/221114 Last Action: Reviewed Pantoprazole Sodium (Pantoprazole Sodium) 40 Mg Tablet.dr, 40 MG PO DAILY, (Reported) Entered as Reported by: MARIA DE JESUS PIEDRA on 07/21/221114 Last Action: Reviewed Sacubitril/Valsartan (Entresto 49 mg-51 mg Tablet) 49 Mg-51 Mg Tablet, 1 EA PO BID, (Reported) Entered as Reported by: MARIA DE JESUS PIEDRA on 07/21/221114 Last Action: Reviewed Spironolactone (Spironolactone) 25 Mg Tablet, 25 MG PO DAILY, (Reported) Entered as Reported by: GABRIEL MEDINA on 07/20/221809 Last Action: Reviewed Tamsulosin HCl (Flomax) 0.4 Mg Cap, 0.4 MG PO HS, (Reported) Entered as Reported by: MARIA DE JESUS PIEDRA on 12/06/20856 Last Action: Reviewed Zolpidem Tartrate (Ambien) 10 Mg Tablet, 10 MG PO HS, (Reported) Entered as Reported by: MARIA DE JESUS PIEDRA on 12/06/20856 Last Action: Reviewed Discontinued Medications Ferrous Sulfate (Ferosul) 325 Mg Tablet, 325 MG PO HS, (Reported) Discontinued Reason: No Longer Taking Entered as Reported by: MARIA DE JESUS PIEDRA on 12/06/20856 Last Action: Discontinued Glimepiride (Glimepiride) 4 Mg Tablet, 4 MG PO BID, (Reported) Discontinued Reason: No Longer Taking Entered as Reported by: ALEXANDER VANN on 05/16/18 1417 Last Action: Discontinued Hydrocodone/Acetaminophen (Hydrocodone-Acetamin 7.5-325) 1 Each Tablet, 1 EA PO BID PRN for PAIN-MODERATE (5-7), (Reported) Discontinued Reason: No Longer Taking Entered as Reported by: MARIA DE JESUS PIEDRA on 12/06/20856 Last Action: Discontinued Lisinopril (Lisinopril) 20 Mg Tablet, 20 MG PO HS, (Reported) Discontinued Reason: No Longer Taking Entered as Reported by: MARIA DE JESUS PIEDRA on 12/06/20856 Last Action: Discontinued Metoprolol Succinate (Metoprolol Succinate) 100 Mg Tab.er.24h, 100 MG PO DAILY, (Reported) Discontinued Reason: No Longer Taking Entered as Reported by: MARIA DE JESUS PIEDRA on 12/06/20856 Last Action: Discontinued Oxycodone HCl/Acetaminophen (Percocet 5-325 mg Tablet) 1 Each Tablet, 1 TAB PO BID Discontinued Reason: Duplicate Order Prescribed by: SUE GLOVER on 12/08/201137 Last Action: Discontinued Pantoprazole Sodium (Pantoprazole Sodium) 40 Mg Tablet.dr, 40 MG PO DAILY Discontinued Reason: Duplicate Order Prescribed by: SUE GLOVER on 12/08/201137 Last Action: Discontinued Potassium Chloride (K-Tab ER) 10 Meq Tablet.er, 10 MEQ PO HS, (Reported) Discontinued Reason: No Longer Taking Entered as Reported by: MARIA DE JESUS PIEDRA on 12/06/20 0900 Last Action: Discontinued Prednisone (Prednisone) 10 Mg Tab.ds.pk, 20 MG PO DAILY Discontinued Reason: No Longer Taking Prescribed by: SUE GLOVER on 12/08/20 1138 Last Action: Discontinued [Ertresto 49-51 mg ] , 1 TAB PO BID, (Reported) Discontinued Reason: Duplicate Order Entered as Reported by: GABRIEL MEDINA on 07/20/22 4006 Last Action: Discontinued Physical Exam-Cardiology Physical Exam Vital Signs/I&O 07/21/22 07/21/22 07/21/22 07/21/22 01:00 01:47 03:17 07:08 Temp 36.6 Pulse 78 68 73 71 Resp 16 B/P (MAP) 120/64 (82) Pulse Ox 95 O2 Delivery Room Air 07/21/22 07/21/22 07/21/22 07/21/22 07:17 08:00 08:02 11:04 Temp 36.9 37.1 Pulse 89 74 Resp 16 18 B/P (MAP) 130/61 (84) 117/53 (74) Pulse Ox 94 96 95 96 O2 Delivery Room Air Room Air Room Air Room Air 07/21/22 11:45 Pulse Ox 98 O2 Delivery Room Air 07/21/22 00:00 Intake Total 500 ml Balance 500 ml Capillary Refill : Constitutional: AAO x 3, well-developed, well-nourished HEENT: PERRL, hearing is well preserved, oral hygience is good Neck: No carotid bruit; carotid pulses are 2 + bilaterally Respiratory: No accessory muscle use, No respiratory distress; chest expansion is symmetric, chest is bilaterally symmetric, lungs clear to auscultation Cardiovascular: regular rate-rhythm; No JVD; S1 and S2 Gastrointestinal: No tender; soft, round, audible bowel sounds Extremities: no lower extremity edema bilateral, wound (Right foot, third toe, with swelling, dark discoloration, foul odor and serous drainage) Neurologic/Psychiatric: grossly intact (moves all extremities) Skin: other (see above) Data Review Labs Laboratory Tests 07/20/22 17:50: White Blood Count 17.6H, Red Blood Count 4.38, Hemoglobin 13.2L, Hematocrit 40, Mean Corpuscular Volume 92, Mean Corpuscular Hemoglobin 30, Mean Corpuscular Hemoglobin Concent 33, Red Cell Distribution Width 13.4, Platelet Count 240, Mean Platelet Volume 11.4, Immature Granulocyte % (Auto) 1, Neutrophils (%) (Auto) 84H, Lymphocytes (%) (Auto) 4L, Monocytes (%) (Auto) 11, Eosinophils (%) (Auto) 0, Basophils (%) (Auto) 0, Neutrophils # (Auto) 14.8H, Lymphocytes # (Auto) 0.7L, Monocytes # (Auto) 1.9H, Eosinophils # (Auto) 0.0, Basophils # (Auto) 0.1, Immature Granulocyte # (Auto) 0.1, Neutrophils % (Manual) 85, Lymphocytes % (Manual) 3, Monocytes % (Manual) 11, Basophils % (Manual) 1, Blood Morphology Comment NORMAL, Sodium Level 134L, Potassium Level 4.8, Chloride Level 99, Carbon Dioxide Level 24, Anion Gap 11, Blood Urea Nitrogen 24H, Creatinine 2.13H, Estimat Glomerular Filtration Rate 32, BUN/Creatinine Ratio 11, Glucose Level 269H, Lactic Acid Level 1.19, Calcium Level 9.6, Corrected Calcium 9.6, Total Bilirubin 0.8, Aspartate Amino Transf (AST/SGOT) 13, Alanine Aminotransferase (ALT/SGPT) 8, Alkaline Phosphatase 114, Total Protein 7.3, Albumin 4.0, Procalcitonin 0.15H 07/20/22 20:49: Glucometer 200H 07/21/22 05:32: Glucometer 119H 07/21/22 11:00: White Blood Count 13.8H, Red Blood Count 3.88L, Hemoglobin 11.6L, Hematocrit 36L , Mean Corpuscular Volume 92, Mean Corpuscular Hemoglobin 30, Mean Corpuscular Hemoglobin Concent 33, Red Cell Distribution Width 13.6, Platelet Count 207, Mean Platelet Volume 11.2, Immature Granulocyte % (Auto) 0, Neutrophils (%) (Au to) 83H, Lymphocytes (%) (Auto) 5L, Monocytes (%) (Auto) 11, Eosinophils (%) (Auto) 0, Basophils (%) (Auto) 0, Neutrophils # (Auto) 11.5H, Lymphocytes # (Auto) 0.8L, Monocytes # (Auto) 1.4H, Eosinophils # (Auto) 0.0, Basophils # (Auto) 0.1, Immature Granulocyte # (Auto) 0.1, Sodium Level 137, Potassium Level 3.9, Chloride Level 103, Carbon Dioxide Level 21, Anion Gap 13, Blood Urea Nitrogen 25H, Creatinine 2.00H, Estimat Glomerular Filtration Rate 35, BUN/Creatinine Ratio 13, Glucose Level 127H, Calcium Level 8.6, Corrected Calcium 9.2, Total Bilirubin 0.9, Aspartate Amino Transf (AST/SGOT) 9, Alanine Aminotransferase (ALT/SGPT) 7, Alkaline Phosphatase 90, Total Protein 6.2L, Albumin 3.3 A/P-Cardiology Assessment/Admission Diagnosis 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 Maharaj and Dr. Glover CAD and ischemic cardiomyopathy: - Card cath of 02/09/17: near-total occlusion of LAD treated with overlapping Resolute 2.25x30 and 2.5x14 stents and both postdilated with a 2.75 mm balloon to 2.9 mm diameter; LCX and RCA had relatively mod disease; elevated LVEDP - MPI of April 16, 2020 showed inferoapical myocardial infarction with a small amt of tosin-infarct ischemia. Anteroapical akinesis. LVEF 30%. Chronic systolic and diastolic CHF: - due to ischemic cardiomyopathy and severe mitral regurg - Echo 02/17/21: LVEF 30-35%, mod cardiomegaly (LV, RA, LA), mod to sev MR, AoV sclerosis w/o stenosis, mild MR, PASP 45-50 mmHg - Echocardiogram of 12-25-21 showed mod concentric hypertrophy. LVEF 25-30%. Akinesis of the anterior myocardium. LA is mod dilated. RA is mildly dilated. Mod MR, directed eccentrically. AoV thickening, consistent with sclerosis with mild AoR. A trivial free flowing pericardial effusion is identified. - Echo for 02/25/22 (as part of participation in MitraClip trial at [facility]): LVEF 37%, [place] device with mild residual MR, severe LV dilatation, global hypo, apical akinesis - Echocardiogram of 03-19-22 showed LVEF 30-35%. Akinesis of the apical myocardium. Grade 1 diastolic dysfunction. Mild to mod MR. AoV thickening, consistent with sclerosis. Trivial regurg. PASP 20 mmHg - MUGA 05-21-22 showed: Ischemic cardiomyopathy with anteroapical akinesis and with left ventricular ejection fraction of 43%. Severe MR: - Echocardiogram from 02-17-21 showed mod to severe MR - Referred to Dr. Rodriguez per pt request - advised he keep referral to [facility] - Referred to [facility]: Dr. Garg at [facility] has offered a minimally invasive mitral valve replacement, but the pt request an even less invasive approach and desires a mitraclip - S/P successful mitraclip placement by Dr. Vazquez at [facility] on 08-26-21 Hypertension: - controlled H/o GI bleed : - May 2018 hosp with GI bleed requiring multiple transfusions. - Endoscopy by Dr Maharaj in early May 2018: reflux esophagitis (grade 2), no HH, moderate gastritis with small antral erosion.mild chronic stage 1 ext and int hemorrhoids. - Long hosp (April and May 2018) with diffuse myopathy and weakness following GI bleed and blood transfusions. Thrombocytosis during hosp of May 2018, most likely reactive, followed and treated by Dr Maher Chronic joint pains of unclear etiology: - gout vs RMSF vs statins. DM II: - followed by PCP H/o tobaccoism: - Quit tobacco use in or around 1999 CKD IV PFT of March 31, 2017: spirometry is WNL Carotid dz: Mild carotid arterial disease on carotid u/s of 11/17/18 No AAA on AAA screening scan of 11/17/18 PAD and renal artery stenosis - CTA images of 12-16-2021 (following abnormal segmentals) demonstrate diffuse atherosclerotic plaquing of the aorta without evidence of aneurysm. There is a significant left renal artery stenosis. There are stenoses of the origins of the profunda femoris arteries on the right side. There is moderate stenosis in the distal SFA on the right side and high-grade stenosis of the junction of the right SFA and popliteal artery. There is two vessel runoff on the right side. On the left side, there is high-grade stenosis of the lower SFA with two vessel runoff distally. Discussion and Recomendations * Complex management * We have spoken with Dr. Glover and Dr. Maharaj, Mr. Henning and his significant other extensively. It appears that the toe will have to be amputated. Mr. Henning has not agreed to peripheral angiography with possible intervention d/t concerns about potential worsening renal function d/t contrast nephropathy. He states he will reconsider if the wound does not heal post toe amputation. * Continue home cardiac medications for heart failure * Monitor lab * Replace electrolytes as indicated * Further recs will be based on his hospital course Clinical Quality Measures DVT/VTE Risk/Contraindication: Contraindications-Mechi: Other *list below* Other: lower leg cellulitis RHYS HINKLE MD [facility] Jul 21, 2022 13:00
--- NOTE | 2022-07-21 13:07 | History & Physical ---
MEREDITHHARIKA 07/21/22 1307: History of Present Illness History of Present Illness Reason for visit/HPI CC: Right foot cellulitis 42yo M with h/o NIDDM, PAD, CAD, CKD, peripheral neuropathy, and HTN was referred to keily Jackson from Dr. Glover's office yesterday due to right foot cellulitis that has been worsening for the past week. 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 Pt did not seek medical attention at that time. Pt states that one week ago, the pain in his foot worsened and started to radiate up his leg. Yesterday, pt states that he became febrile, having a max temperature of 102F at home. This prompted him to be seen by Dr. Glover who referred him to the hospital to be admitted. Workup found an elevated WBC. Pt was started on IV Zosyn and Vancomycin. Pt had a foot XRAY on 07/20 that showed no fractures or osteomyelitis. Surgery was consulted and Dr. Maharaj saw the pt on 07/20.MRI of R foot was ordered and was significant for R 3rd digit gangrene and osteomyelitis. Today, pt is resting in bed comfortably. Pt is currently afebrile. Pt has no complaints at this time. Dr. Vela has been consulted to assess the vessels in pt's foot. Pt is currently NPO. Pt denies nausea, vomiting, abd pain, CP, and SOA. Date of Admission Jul 20, 2022 at 16:28 Date Seen by a Provider: Jul 21, 2022 Time Seen by a Provider: 13:05 I consulted on this patient on 07/21/22 13:05 Attending Physician Sue Glover DO Admitting Physician Admitting Physician: Sue Glover DO Attending Physician: Sue Glover DO Consult Allergies and Home Medications Allergies Coded Allergies: No Known Drug Allergies (Unverified , 01/25/17) Patient Home Medication List Home Medication List Reviewed: Yes Acetaminophen (Tylenol Extra Strength) 500 Mg Tablet, 1,000 MG PO Q8H PRN for PAIN-MILD (1-4), (Reported) Entered as Reported by: MARIA DE JESUS PIEDRA on 07/21/22 5885 Last Action: Reviewed Allopurinol (Allopurinol) 100 Mg Tablet, 100 MG PO BID, (Reported) Entered as Reported by: MARIA DE JESUS PIEDRA on 12/06/20856 Last Action: Reviewed Amoxicillin/Potassium Clav (Augmentin 500-125 Tablet) 500 Mg-125 Mg Tablet, 1 EACH PO BID Prescribed by: MARYLU MAHARAJ on 07/21/22 1508 Bethanechol Chloride (Bethanechol Chloride) 50 Mg Tablet, 50 MG PO HS, (Reported) Entered as Reported by: MARIA DE JESUS PIEDRA on 12/06/20856 Last Action: Reviewed Clopidogrel Bisulfate (Clopidogrel) 75 Mg Tablet, 75 MG PO DAILY, (Reported) Entered as Reported by: MARIA DE JESUS PIEDRA on 12/06/20856 Last Action: Reviewed Dapagliflozin Propanediol (Farxiga) 10 Mg Tablet, 10 MG PO HS, (Reported) Entered as Reported by: GABRIEL MEDINA on 07/20/221814 Last Action: Reviewed Ferrous Sulfate (Feosol) 325 Mg (65 Mg Iron) Tablet, 325 MG PO HS, (Reported) Entered as Reported by: GABRIEL MEDINA on 07/20/221823 Last Action: Reviewed Furosemide (Furosemide) 40 Mg Tablet, 40 MG PO Q48H, (Reported) Entered as Reported by: MARIA DE JESUS PIEDRA on 12/06/20 09 Last Action: Reviewed Metoprolol Succinate (Metoprolol Succinate) 50 Mg Tab.er.24h, 50 MG PO HS, (Reported) Entered as Reported by: GABRIEL MEDINA on 07/20/221809 Last Action: Reviewed Oxycodone HCl/Acetaminophen (Oxycodone-Acetaminophen 5-325) 5 Mg-325 Mg Tablet, 1 EA PO BID PRN for PAIN-MODERATE (5-7), (Reported) Entered as Reported by: MARIA DE JESUS PIEDRA on 07/21/221114 Last Action: Reviewed Pantoprazole Sodium (Pantoprazole Sodium) 40 Mg Tablet.dr, 40 MG PO DAILY, (Reported) Entered as Reported by: MARIA DE JESUS PIEDRA on 07/21/221114 Last Action: Reviewed Sacubitril/Valsartan (Entresto 49 mg-51 mg Tablet) 49 Mg-51 Mg Tablet, 1 EA PO BID, (Reported) Entered as Reported by: MARIA DE JESUS PIEDRA on 07/21/221114 Last Action: Reviewed Spironolactone (Spironolactone) 25 Mg Tablet, 25 MG PO DAILY, (Reported) Entered as Reported by: GABRIEL MEDINA on 07/20/221809 Last Action: Reviewed Tamsulosin HCl (Flomax) 0.4 Mg Cap, 0.4 MG PO HS, (Reported) Entered as Reported by: MARIA DE JESUS PIEDRA on 12/06/20856 Last Action: Reviewed Zolpidem Tartrate (Ambien) 10 Mg Tablet, 10 MG PO HS, (Reported) Entered as Reported by: MARIA DE JESUS PIEDRA on 12/06/20856 Last Action: Reviewed Discontinued Medications Ferrous Sulfate (Ferosul) 325 Mg Tablet, 325 MG PO HS, (Reported) Discontinued Reason: No Longer Taking Entered as Reported by: MARIA DE JESUS PIEDRA on 12/06/20856 Last Action: Discontinued Glimepiride (Glimepiride) 4 Mg Tablet, 4 MG PO BID, (Reported) Discontinued Reason: No Longer Taking Entered as Reported by: ALEXANDER VANN on 05/16/18 1417 Last Action: Discontinued Hydrocodone/Acetaminophen (Hydrocodone-Acetamin 7.5-325) 1 Each Tablet, 1 EA PO BID PRN for PAIN-MODERATE (5-7), (Reported) Discontinued Reason: No Longer Taking Entered as Reported by: MARIA DE JESUS PIEDRA on 12/06/20856 Last Action: Discontinued Lisinopril (Lisinopril) 20 Mg Tablet, 20 MG PO HS, (Reported) Discontinued Reason: No Longer Taking Entered as Reported by: MARIA DE JESUS PIEDRA on 12/06/20856 Last Action: Discontinued Metoprolol Succinate (Metoprolol Succinate) 100 Mg Tab.er.24h, 100 MG PO DAILY, (Reported) Discontinued Reason: No Longer Taking Entered as Reported by: MARIA DE JESUS PIEDRA on 12/06/20856 Last Action: Discontinued Oxycodone HCl/Acetaminophen (Percocet 5-325 mg Tablet) 1 Each Tablet, 1 TAB PO BID Discontinued Reason: Duplicate Order Prescribed by: SUE GLOVER on 12/08/201137 Last Action: Discontinued Pantoprazole Sodium (Pantoprazole Sodium) 40 Mg Tablet.dr, 40 MG PO DAILY Discontinued Reason: Duplicate Order Prescribed by: SUE GLOVER on 12/08/201137 Last Action: Discontinued Potassium Chloride (K-Tab ER) 10 Meq Tablet.er, 10 MEQ PO HS, (Reported) Discontinued Reason: No Longer Taking Entered as Reported by: MARIA DE JESUS PIEDRA on 12/06/20 0900 Last Action: Discontinued Prednisone (Prednisone) 10 Mg Tab.ds.pk, 20 MG PO DAILY Discontinued Reason: No Longer Taking Prescribed by: SUE GLOVER on 12/08/20 1138 Last Action: Discontinued [Ertresto 49-51 mg ] , 1 TAB PO BID, (Reported) Discontinued Reason: Duplicate Order Entered as Reported by: GABRIEL MEDINA on 07/20/22 1824 Last Action: Discontinued Past Toqmytm-Txebft-Purfwo Hx Patient Social History Marrital Status: Smoking Status: Former Smoker Smokeless Tobacco Frequency: Never a User Use of E-Cig and/or Vaping Messi: Never a User Substance use?: No Alcohol Use?: No Pt feels they are or have been: No Immunizations Up To Date Tetanus Booster (TDap): Unknown Hepatitis A: No Hepatitis B: No PED Vaccines UTD: No Seasonal Allergies Seasonal Allergies: No Current Status Advance Directives: No Communicates: Verbally Primary Language: Japanese Preferred Spoken Language: Japanese Is interpretation needed?: No Implanted or Applied Medical D: Stents, Other Past Medical History Surgeries: Cardiac (microclip placement for severe MR), Pacemaker Pneumonia, COPD Currently Using CPAP: No Currently Using BIPAP: No High Cholesterol, Hypertension Neuropathy Renal Failure Gastroesophageal Reflux Gout Diabetes, Non-Insulin dep Cataract Loss of Vision: Denies Hearing Impairment: Denies Blood Disorders: No Family Medical History No Pertinent Family Hx Review of Systems Constitutional: No chills, No diaphoresis, No fever EENTM: No ear pain, No blurred vision, No double vision Respiratory: No cough, No dyspnea on exertion, No short of breath Cardiovascular: No chest pain, No palpitations, No syncope Gastrointestinal: No abdominal pain, No constipation, No diarrhea, No nausea, No vomiting Genitourinary: No decreased output, No discharge Musculoskeletal: No back pain, No gout; other (R foot 3rd digit pain with movement) Skin: No change in color; other (R foot 3rd digit cellulitis) Psychiatric/Neurological: Denies Anxiety, Denies Depressed All Other Systems Reviewed Negative Unless Noted: Yes Physical Exam Vital Signs Vital Signs - First Documented 07/20/22 07/20/22 07/20/22 17:00 17:07 17:16 Temp 37.5 Pulse 89 Resp 22 B/P (MAP) 154/67 (96) Pulse Ox 97 O2 Delivery Room Air FiO2 21 Capillary Refill : Height, Weight, BMI Height: 5'11.00" Weight: 195lbs. 11.2oz. 88.614748qw; 24.76 BMI Method:Stated General Appearance: No Apparent Distress, WD/WN HEENT: PERRL/EOMI, Moist Mucous Membranes Neck: Normal Inspection, Supple Respiratory: Chest Non Tender, Lungs Clear, Normal Breath Sounds Cardiovascular: Regular Rate, Rhythm, No Gallop, No Murmur Gastrointestinal: Non Tender, Soft Back: Normal Inspection, No CVA Tenderness Extremity: Inflammation (R foot 3rd digit), Swelling (right foot ) Neurologic/Psychiatric: Alert, Oriented x3 Skin: Warm/Dry, Erythema (Extending downward from 3rd digit on right foot), Other (R foot 3rd digit some peeling of skin noted, erythema and swelling. Some dried blood present as well) Lymphatic: No Adenopathy Assessment/Plan Assessment and Plan 1. Sepsis -IV Zosyn 25mls/hr Q8H and Vancomycin 250mls/hr Q24H 2. Osteomyelitis and gangrene of 3rd digit on R foot -Had MRI confirming -Dr. Vela and Nicko will evaluate pt before proceeding with next steps in treatment plan 3. NIDDM -takes metformin -Managed by Dr. Glover 4. Diabetic neuropathy 5. PAD -CT images from 12/16/21 demonstrated stenosis of varying degrees of the SFA and popliteal artery 6. HTN -controlled 7. CAD -cardiac cath 02/17/17 with stent placement due to near total occlusion of LAD 8. Ischemic Cardiomyopathy -Per cardiology notes, MPI on 04/16/20 showed inferoapical myocardial infarction with a small amt of tosin-infarct ischemia. Anteroapical akinesis. LVEF 30% 8. COPD -controlled 9. Severe MR -- S/P successful mitraclip placement by Dr. Vazquez at [facility] on 08/26/21 10. Chronic CHF -most recent ECHO showed LVEF 30-35%, grade 1 diastolic dysfunction, mild to mod MR, AoV thicknening (consistent with sclerosis), and PASP 20mmHg -MUGA on 05/21/22 was significant for ischemic cardiomyopathy with anteroapical akinesis and with left ventricular ejection fraction of 43%. 10. CKD IV 11. Renal Artery Stenosis -CT images on 12/16/21 showed significant stenosis of L renal artery 12. H/o GI bleed -multiple hospitalizations requiring transfusions -Last EGD/colonoscopy 05/[address] Maharaj found moderate gastritis and mild chronic stage 1 external and internal hemorrhoids 13. Chronic Joint pain -managed by Dr. Glover 14. Carotid Artery Disease -noted on carotid u/s on 11/17/18 Plan: Continue IV abx MRI was significant for osteomyelitis of 3 digit on R foot. Pt was seen by Dr. Vela and Dr. Maharaj. Pt will proceed with toe amputation but would like to postpone peripheral angiography with possible intervention d/t concerns about possible contrast nephropathy. NPO Admission Diagnosis R foot Cellulitis Admission Status: Inpatient Order (span 2 midnights) Reason for Inpatient Admission: Cellulitis Clinical Quality Measures DVT/VTE Risk/Contraindication: Contraindications-Mechi: Other *list below* Other: lower leg cellulitis SUE GLOVER DO 07/22/22 0612: Allergies and Home Medications Allergies Coded Allergies: No Known Drug Allergies (Unverified , 01/25/17) Patient Home Medication List Acetaminophen (Tylenol Extra Strength) 500 Mg Tablet, 1,000 MG PO Q8H PRN for PAIN-MILD (1-4), (Reported) Entered as Reported by: MARIA DE JESUS PIEDRA on 07/21/22 1115 Last Action: Reviewed Allopurinol (Allopurinol) 100 Mg Tablet, 100 MG PO BID, (Reported) Entered as Reported by: MARIA DE JESUS PIEDRA on 12/06/20856 Last Action: Reviewed Amoxicillin/Potassium Clav (Augmentin 500-125 Tablet) 500 Mg-125 Mg Tablet, 1 EACH PO BID Prescribed by: MARYLU MAHARAJ on 07/21/22 1508 Bethanechol Chloride (Bethanechol Chloride) 50 Mg Tablet, 50 MG PO HS, (Reported) Entered as Reported by: MARIA DE JESUS PIEDRA on 12/06/20856 Last Action: Reviewed Clopidogrel Bisulfate (Clopidogrel) 75 Mg Tablet, 75 MG PO DAILY, (Reported) Entered as Reported by: MARIA DE JESUS PIEDRA on 12/06/20856 Last Action: Reviewed Dapagliflozin Propanediol (Farxiga) 10 Mg Tablet, 10 MG PO HS, (Reported) Entered as Reported by: GABRIEL MEDINA on 07/20/221814 Last Action: Reviewed Ferrous Sulfate (Feosol) 325 Mg (65 Mg Iron) Tablet, 325 MG PO HS, (Reported) Entered as Reported by: GABRIEL MEDINA on 07/20/221823 Last Action: Reviewed Furosemide (Furosemide) 40 Mg Tablet, 40 MG PO Q48H, (Reported) Entered as Reported by: MARIA DE JESUS PIEDRA on 12/06/20900 Last Action: Reviewed Metoprolol Succinate (Metoprolol Succinate) 50 Mg Tab.er.24h, 50 MG PO HS, (Reported) Entered as Reported by: GABRIEL MEDINA on 07/20/221809 Last Action: Reviewed Oxycodone HCl/Acetaminophen (Oxycodone-Acetaminophen 5-325) 5 Mg-325 Mg Tablet, 1 EA PO BID PRN for PAIN-MODERATE (5-7), (Reported) Entered as Reported by: MARIA DE JESUS PIEDRA on 07/21/221114 Last Action: Reviewed Pantoprazole Sodium (Pantoprazole Sodium) 40 Mg Tablet.dr, 40 MG PO DAILY, (Reported) Entered as Reported by: MARIA DE JESUS PIEDRA on 07/21/221114 Last Action: Reviewed Sacubitril/Valsartan (Entresto 49 mg-51 mg Tablet) 49 Mg-51 Mg Tablet, 1 EA PO BID, (Reported) Entered as Reported by: MARIA DE JESUS PIEDRA on 07/21/221114 Last Action: Reviewed Spironolactone (Spironolactone) 25 Mg Tablet, 25 MG PO DAILY, (Reported) Entered as Reported by: GABRIEL MEDINA on 07/20/221809 Last Action: Reviewed Tamsulosin HCl (Flomax) 0.4 Mg Cap, 0.4 MG PO HS, (Reported) Entered as Reported by: MARIA DE JESUS PIEDRA on 12/06/20856 Last Action: Reviewed Zolpidem Tartrate (Ambien) 10 Mg Tablet, 10 MG PO HS, (Reported) Entered as Reported by: MARIA DE JESUS PIEDRA on 12/06/20856 Last Action: Reviewed Discontinued Medications Ferrous Sulfate (Ferosul) 325 Mg Tablet, 325 MG PO HS, (Reported) Discontinued Reason: No Longer Taking Entered as Reported by: MARIA DE JESUS PIEDRA on 12/06/20856 Last Action: Discontinued Glimepiride (Glimepiride) 4 Mg Tablet, 4 MG PO BID, (Reported) Discontinued Reason: No Longer Taking Entered as Reported by: ALEXANDER VANN on 05/16/18 1417 Last Action: Discontinued Hydrocodone/Acetaminophen (Hydrocodone-Acetamin 7.5-325) 1 Each Tablet, 1 EA PO BID PRN for PAIN-MODERATE (5-7), (Reported) Discontinued Reason: No Longer Taking Entered as Reported by: MARIA DE JESUS PIEDRA on 12/06/20856 Last Action: Discontinued Lisinopril (Lisinopril) 20 Mg Tablet, 20 MG PO HS, (Reported) Discontinued Reason: No Longer Taking Entered as Reported by: MARIA DE JESUS PIEDRA on 12/06/20856 Last Action: Discontinued Metoprolol Succinate (Metoprolol Succinate) 100 Mg Tab.er.24h, 100 MG PO DAILY, (Reported) Discontinued Reason: No Longer Taking Entered as Reported by: MARIA DE JESUS PIEDRA on 12/06/20856 Last Action: Discontinued Oxycodone HCl/Acetaminophen (Percocet 5-325 mg Tablet) 1 Each Tablet, 1 TAB PO BID Discontinued Reason: Duplicate Order Prescribed by: SUE GLOVER on 12/08/201137 Last Action: Discontinued Pantoprazole Sodium (Pantoprazole Sodium) 40 Mg Tablet.dr, 40 MG PO DAILY Discontinued Reason: Duplicate Order Prescribed by: SUE GLOVER on 12/08/201137 Last Action: Discontinued Potassium Chloride (K-Tab ER) 10 Meq Tablet.er, 10 MEQ PO HS, (Reported) Discontinued Reason: No Longer Taking Entered as Reported by: MARIA DE JESUS PIEDRA on 12/06/20 0900 Last Action: Discontinued Prednisone (Prednisone) 10 Mg Tab.ds.pk, 20 MG PO DAILY Discontinued Reason: No Longer Taking Prescribed by: SUE GLOVER on 12/08/201137 Last Action: Discontinued [Ertresto 49-51 mg ] , 1 TAB PO BID, (Reported) Discontinued Reason: Duplicate Order Entered as Reported by: GABRIEL MEDINA on 07/20/22 0609 Last Action: Discontinued Past Bmqcipk-Ybmnya-Jiextc Hx Patient Social History Marrital Status: Employed/Student: employed Smoking Status: Former Smoker Past Medical History Surgeries: Pacemaker Pneumonia, COPD Coronary Artery Disease, High Cholesterol, Hypertension, Valvular Heart Disease Benign Prostatic Hyperpl, Renal Failure Gastroesophageal Reflux Review of Systems Constitutional: see HPI, malaise, weakness Skin: other (R foot 3rd digit cellulitis) Physical Exam General Appearance: No Apparent Distress, WD/WN, Chronically ill Respiratory: Lungs Clear, Normal Breath Sounds Cardiovascular: Regular Rate, Rhythm Extremity: Inflammation (R foot 3rd digit), Swelling (right foot ) Neurologic/Psychiatric: Alert, Oriented x3 Assessment/Plan Assessment and Plan IV antibiotics Pain meds Vascular evaluation Amputation of toe? Problems: (1) Gangrene of toe of right foot Admission Diagnosis Admission Status: Inpatient Order (span 2 midnights) Reason for Inpatient Admission: Toe gangrene Supervisory-Addendum Brief Verification & Attestation Participated in pt care: history, MDM, physical Personally performed: exam, history, MDM, supervision of care Care discussed with: Medical Student Procedures: n/a Results interpretation: Verified all documentation Verification and Attestation of Medical Student E/M Service A medical student performed and documented this service in my presence. I reviewed and verified all information documented by the medical student and made modifications to such information, when appropriate. I personally performed the physical exam and medical decision making. Sue Glover Jul 22, 2022,06:10 HARIKA HARPER Jul 21, 2022 13:07 SUE GLOVER DO Jul 22, 2022 06:12
[2022-07-21] MEDS ORDERED: LIDOCAINE PF 2% 5 ML (XYLOCAINE) VIAL ONE (13:31)
[2022-07-21] MEDS ORDERED: MIDAZOLAM 2 MG/2 ML (VERSED) VIAL ONE (13:31)
[2022-07-21] MEDS ORDERED: PROPOFOL INJECTION 50 ML IV ONE (13:31)
[2022-07-21] MEDS ORDERED: LIDOCAINE/EPI 1%-1:100,000 (XYLOCAINE) 10 ML ONE ×2 (13:45→14:30)
[2022-07-21] MEDS ORDERED: LACTATED RINGERS 1,000 ML IV PRN (14:15)
[2022-07-21] MEDS ORDERED: KETAMINE 50 MG/5 ML SYRINGE ONE (14:20)
--- NOTE | 2022-07-21 14:59 | Progress Note-Pre Operative ---
Pre-Operative Progress Note Date of Available H&P: Jul 21, 2022 Date H&P Reviewed: Jul 21, 2022 Time H&P Reviewed: 13:00 History & Physical: No changes noted Pre-Operative Diagnosis: osteomyelitis right foot 3rd toe MARYLU DELGADO MD Jul 21, 2022 14:59
--- NOTE | 2022-07-21 15:04 | Progress Note-Post Operative ---
Post-Operative Progess Note Surgeon (s)/Chemical Maker (s) Surgeon MARYLU DELGADO MD Chemical Maker: none Pre-Operative Diagnosis osteomyelitis right foot 3rd toe Post-Operative Diagnosis same Procedure & Operative Findings Date of Procedure 07/21/22 Procedure Performed/Findings amputation right third toe, right ankle nerve block. Anesthesia Type mac, foot nerve block, local Estimated Blood Loss Estimated blood loss (mL): minimal Specimens/Packing Specimens Removed right third toe. MARYLU DELGADO MD Jul 21, 2022 15:04
[2022-07-21] MEDS ORDERED: AMOX-355 PO (15:08)
--- NOTE | 2022-07-21 15:08 | Anesthesia-General Post-Op ---
MAC Patient Condition Mental Status/LOC: Same as Preop Cardiovascular: Satisfactory Nausea/Vomiting: Absent Respiratory: Satisfactory Pain: Controlled Complications: Absent Post Op Complications Complications None Follow Up Care/Instructions Patient Instructions None needed. Anesthesiology Discharge Order Discharge Order Patient is awake in PACU and doing well, no complaints, stable vital signs, no apparent adverse anesthesia problems. No complications reported per nursing. FERNANDO TY DO Jul 21, 2022 15:08
--- NOTE | 2022-07-21 15:09 | Discharge Inst-Surgical ---
D/C Lap Instructions-SANDY New, Converted, or Re-Newed RX: RX on Chart Follow Up Appt in 2 weeks Activity as tolerated Regular Diet Symptoms to Report: Fever over 101 degree F, Nausea/Vomiting Infection Signs and Symptoms to report: Increased redness, Foul odor of wound, Increased drainage Bathing instructions: May shower Operative Area Clean/Dry; Keep incision clean/dry If any problems/questions: Contact your physician or go to Emergency Room MARYLU DELGADO MD Jul 21, 2022 15:09
[2022-07-21] MEDS ORDERED: morphine INJ 10 MG/ML 1ML (SYR OR VIAL) IVP ONE (15:15)
[2022-07-21] MEDS ORDERED: ONDANSETRON 4 MG/2 ML (SDV) Z0FRAN IVP PRN (15:15)
[2022-07-21] MEDS ORDERED: TAMSULOSIN 0.4 MG (FLOMAX) CAP PO SCH (18:00)
[2022-07-21] MEDS: VANCOMYCIN 1 GM/NS 250 ML IVPB IV SCH ×2 (19:41)
[2022-07-21] MEDS: TAMSULOSIN 0.4 MG (FLOMAX) CAP PO SCH (20:12)
[2022-07-21] MEDS: ACETAMINOPHEN 325 MG TABLET PO PRN (23:43)
--- NOTE | 2022-07-22 01:55 | OPERATIVE REPORT ---
DATE OF SERVICE: 07/21/2022 ATTENDING PRIMARY CARE PHYSICIAN: Dr. Sue Fam. PREOPERATIVE DIAGNOSIS: Osteomyelitis, right third toe. POSTOPERATIVE DIAGNOSIS: Osteomyelitis, right third toe. PROCEDURE: Amputation, right third toe, foot nerve block. SURGEON: Marylu Delgado MD. ANESTHESIA: Monitored anesthesia care, foot nerve block, local. ESTIMATED BLOOD LOSS: Minimal. FINDINGS: Bleeding surrounding tissue, likely consistent with moderate perfusion and good healing potential. DISPOSITION: The patient tolerated the procedure well. INDICATIONS: The patient is a 71-year-old male who came to his physician's clinic with right foot third digit skin necrosis. He stated that this had started approximately one week ago and worsened over time. He does have a history of peripheral vascular disease and underwent arteriography in the past, which did show some bilateral lower extremity disease. Initial x-ray did not show any osteomyelitis; however, MRI did show significant osteomyelitis of the third toe. Cardiology was again consulted, and the patient does have stage III chronic kidney disease and recommendation was to withhold from another arteriogram due to the contrast dye load and worsening renal failure and we were in agreeance that clinically he does have good capillary and the remainder of his toes are unaffected and he should have significant healing potential of the wound. DESCRIPTION OF PROCEDURE: The patient was brought to the operating room, laid supine on the table. After adequate IV pain and sedative medications and monitored anesthesia care, the right foot was prepped and draped in standard surgical fashion. We then proceeded with a foot block at the peroneal nerve at the base of the ankle as well as the posterior tibial nerve near the medial malleolus. A 1% lidocaine with epinephrine was used. We then proceeded with local anesthesia as well as a digital nerve block. The superior and inferior flaps were then marked off with a pen and a skin incision was made using a 15 blade. We then proceeded with dissection of the subcutaneous tissue as well as the tendons and ligaments using cautery. A freer was then used to elevate the periosteum. The toe was then amputated at the metatarsophalangeal joint using electrocautery with visualization of good hemostasis. The surrounding tissue was bleeding indicating some blood perfusion for healing potential. The skin and subcutaneous tissue was then reapproximated using 0 Prolene interrupted sutures. Wound was then covered with a nonstick followed by a 4 x 4 gauze followed by Kerlix wrap followed by Coban and a walking shoe. The patient will be instructed to keep the dressing on for the next 48 hours and then remove and to apply gauze dressing followed by wrap followed by the walking shoe once a day for the next two weeks. We will also have him follow up in office. Job ID: [id number] DocumentID: [id number] Dictated Date: 07/21/2022 15:16:05 Technical Aide Date: 07/22/2022 01:55:20 Dictated By: MARYLU DELGADO MD
[2022-07-22 04:50] VITALS: BP 133/61
[2022-07-22 05:03] LABS: BASOPHILS # (AUTO) 0.1 10^3/uL (0.0-0.1); BASOPHILS % (AUTO) 0 % (0-10); EOSINOPHILS % (AUTO) 0 % (0-10); HEMATOCRIT 33 % (40-54); HEMOGLOBIN 10.6 g/dL (13.3-17.7); LYMPHOCYTES # (AUTO) 1.1 10^3/uL (1.0-4.0); LYMPHOCYTES % (AUTO) 8 % (12-44); MEAN CORPUSCULAR HEMOGLOBIN 30 pg (25-34); MEAN CORPUSCULAR HGB CONC 33 g/dL (32-36); MEAN CORPUSCULAR VOLUME 93 fL (80-99); MEAN PLATELET VOLUME 11.2 fL (9.0-12.2); MONOCYTES # (AUTO) 1.6 10^3/uL (0.0-1.0); MONOCYTES % (AUTO) 12 % (0-12); NEUTROPHILS # (AUTO) 10.6 10^3/uL (1.8-7.8); NEUTROPHILS % (AUTO) 79 % (42-75); PLATELET COUNT 227 10^3/uL (130-400); WHITE BLOOD COUNT 13.4 10^3/uL (4.3-11.0)
[2022-07-22 05:21] LABS: BILIRUBIN,TOTAL 0.6 MG/DL (0.1-1.0); CALCIUM 8.5 MG/DL (8.5-10.1); CREATININE SERUM 2.2 MG/DL (0.60-1.30); POTASSIUM 3.9 MMOL/L (3.6-5.0); TOTAL PROTEIN 5.7 GM/DL (6.4-8.2)
[2022-07-22] MEDS: inSUlin ASPART (NovoLOG) 1 UNIT/0.01 ML (CHARGE PER UNIT) SC SCH ×4 (05:23→20:46)
[2022-07-22] MEDS: PANTOPRAZOLE 40 MG (PROTONIX) TAB PO SCH (06:48)
[2022-07-22] MEDS: NS IV 1000 ML 1,000 ML IV SCH ×2 (06:48→19:57)
[2022-07-22] MEDS: RT-ALBUTEROL/IPRATROPIUM 3 ML (DUONEB) VIAL INH SCH ×4 (07:04→17:48)
[2022-07-22 07:46] VITALS: BP 125/55
[2022-07-22] MEDS ORDERED: DOXY100T2 PO (08:09)
--- NOTE | 2022-07-22 09:13 | Progress Note - Cardiology ---
Cardiology SOAP Progress Note Objective: I&O/Vital Signs 07/22/22 07/23/22 07/23/22 07/23/22 23:18 01:00 03:17 07:24 Temp 36.4 36.5 37.5 Pulse 84 67 80 82 Resp 18 18 18 B/P (MAP) 112/56 (74) 136/67 (90) 169/73 (105) Pulse Ox 94 97 95 O2 Delivery Room Air Room Air Room Air 07/23/22 07/23/22 07/23/22 07:50 08:07 08:10 Temp 37.5 Pulse 73 82 Pulse Ox 95 95 O2 Delivery Room Air O2 Flow Rate 0.00 FiO2 21 07/23/22 00:00 Intake Total 1710 ml Balance 1710 ml Weight (Pounds): 195 Weight (Ounces): 11.2 Weight (Calculated Kilograms): [phone] Constitutional: AAO x 3, well-developed, well-nourished Respiratory: No accessory muscle use, No respiratory distress; chest expansion is symmetric, chest is bilaterally symmetric, lungs clear to auscultation Cardiovascular: regular rate-rhythm; No JVD; S1 and S2 Gastrointestional: No tender; soft, round, audible bowel sounds Extremities: no lower extremity edema bilateral, wound (S/P right foot, third digit ampuation - dressing in place) Neurologic/Psychiatric: grossly intact (moves all extremities) Skin: other (see above) Results/Procedures: Labs Laboratory Tests 07/22/22 11:10: Glucometer 206H 07/22/22 15:22: Glucometer 163H 07/22/22 16:40: Vancomycin Level Trough 15.0 07/22/22 20:20: Glucometer 140H 07/23/22 05:25: White Blood Count 11.0, Red Blood Count 3.52L, Hemoglobin 10.6L, Hematocrit 33L, Mean Corpuscular Volume 93, Mean Corpuscular Hemoglobin 30, Mean Corpuscular Hemoglobin Concent 32, Red Cell Distribution Width 13.7, Platelet Count 237, Mean Platelet Volume 11.1, Immature Granulocyte % (Auto) 1, Neutrophils (%) (Auto) 78H, Lymphocytes (%) (Auto) 9L, Monocytes (%) (Auto) 10, Eosinophils (%) (Auto) 1, Basophils (%) (Auto) 1, Neutrophils # (Auto) 8.7H, Lymphocytes # (Auto) 1.0, Monocytes # (Auto) 1.1H, Eosinophils # (Auto) 0.2, Basophils # (Auto) 0.1, Immature Granulocyte # (Auto) 0.1, Sodium Level 141, Potassium Level 4.0, Chloride Level 110H, Carbon Dioxide Level 19L, Anion Gap 12, Blood Urea Nitrogen 24H, Creatinine 1.86H, Estimat Glomerular Filtration Rate 38, BUN/Creatinine Ratio 13, Glucose Level 115H, Calcium Level 8.8, Corrected Calcium 9.7, Total Bilirubin 0.7, Aspartate Amino Transf (AST/SGOT) 13, Alanine Aminotransferase (ALT/SGPT) 11, Alkaline Phosphatase 106, Total Protein 6.1L, Albumin 2.9L Microbiology 07/21/22 Gram Stain - Final, Resulted 07/21/22 Anaerobic Culture, Resulted Pending 07/21/22 Surgical Culture - Preliminary, Resulted Staphylococcus aureus 07/21/22 MRSA Screen - Final, Complete MRSA not isolated Procedures NAME: JENNI EDGE [facility] REC#: [id number] PT STATUS: ADM IN : 1950 PHYSICIAN: NICHOLAS GLOVER DO ADMIT DATE: 07/20/22 Signed Date of Exam:07/21/22 MRI RT LOWER EXT W/O CON PROCEDURE: MRI right lower extremity without contrast. TECHNIQUE: Multiplanar, multisequence non contrast-enhanced MRI of the right lower extremity was accomplished. INDICATION: Osteomyelitis. Right toe pain. COMPARISON: Radiograph from 07/20/2022 FINDINGS: There is marked motion artifact on multiple sequences. No acute fracture is seen. There is bone marrow edema in the 3rd toe middle and distal phalanges. There is T1-weighted hypointensity in the 3rd toe distal phalanx. There is marked edema in the soft tissues about the 3rd toe. No drainable fluid collection is seen on this noncontrast exam. There is susceptibility artifact at the plantar medial aspect of the right great toe. There is mild generalized muscular atrophy which may be neurogenic. Flexor and extensor tendons appear to be intact. IMPRESSION: 1. Osteomyelitis of the 3rd toe distal phalanx. Osteitis of the 3rd toe middle phalanx. 2. Soft tissue edema in the 3rd toe, likely from infection, with no drainable fluid collection seen. 3. Susceptibility artifact at the plantar great toe, may represent calcifications or possibly tiny foreign bodies. Dictated by: Dictated on workstation # [id number] Dict: 07/21/22 0936 Trans: 07/21/22 1026 [id number] Interpreted by: LISA PATRICK MD Electronically signed by: LISA PATRICK MD 07/21/22 1026 A/P: Assessment: 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 Maharaj and Dr. Glover CAD and ischemic cardiomyopathy: - Card cath of 02/09/17: near-total occlusion of LAD treated with overlapping Resolute 2.25x30 and 2.5x14 stents and both postdilated with a 2.75 mm balloon to 2.9 mm diameter; LCX and RCA had relatively mod disease; elevated LVEDP - MPI of April 16, 2020 showed inferoapical myocardial infarction with a small amt of tosin-infarct ischemia. Anteroapical akinesis. LVEF 30%. Chronic systolic and diastolic CHF: - due to ischemic cardiomyopathy and severe mitral regurg - Echo 02/17/21: LVEF 30-35%, mod cardiomegaly (LV, RA, LA), mod to sev MR, AoV sclerosis w/o stenosis, mild MR, PASP 45-50 mmHg - Echocardiogram of 12-25-21 showed mod concentric hypertrophy. LVEF 25-30%. Akinesis of the anterior myocardium. LA is mod dilated. RA is mildly dilated. Mod MR, directed eccentrically. AoV thickening, consistent with sclerosis with mild AoR. A trivial free flowing pericardial effusion is identified. - Echo for 02/25/22 (as part of participation in MitraClip trial at [facility]): LVEF 37%, [place] device with mild residual MR, severe LV dilatation, global hypo, apical akinesis - Echocardiogram of 03-19-22 showed LVEF 30-35%. Akinesis of the apical myocardium. Grade 1 diastolic dysfunction. Mild to mod MR. AoV thickening, consistent with sclerosis. Trivial regurg. PASP 20 mmHg - MUGA 05-21-22 showed: Ischemic cardiomyopathy with anteroapical akinesis and with left ventricular ejection fraction of 43%. Severe MR: - Echocardiogram from 02-17-21 showed mod to severe MR - Referred to Dr. Rodriguez per pt request - advised he keep referral to [facility] - Referred to [facility]: Dr. Garg at [facility] has offered a minimally invasive mitral valve replacement, but the pt request an even less invasive approach and desires a mitraclip - S/P successful mitraclip placement by Dr. Vazquez at [facility] on 08-26-21 Hypertension: - controlled H/o GI bleed : - May 2018 hosp with GI bleed requiring multiple transfusions. - Endoscopy by Dr Maharaj in early May 2018: reflux esophagitis (grade 2), no HH, moderate gastritis with small antral erosion.mild chronic stage 1 ext and int hemorrhoids. - Long hosp (April and May 2018) with diffuse myopathy and weakness following GI bleed and blood transfusions. Thrombocytosis during hosp of May 2018, most likely reactive, followed and treated by Dr Maher Chronic joint pains of unclear etiology: - gout vs RMSF vs statins. DM II: - followed by PCP H/o tobaccoism: - Quit tobacco use in or around 1999 CKD IV PFT of March 31, 2017: spirometry is WNL Carotid dz: Mild carotid arterial disease on carotid u/s of 11/17/18 No AAA on AAA screening scan of 11/17/18 PAD and renal artery stenosis - CTA images of 12-16-2021 (following abnormal segmentals) demonstrate diffuse atherosclerotic plaquing of the aorta without evidence of aneurysm. There is a significant left renal artery stenosis. There are stenoses of the origins of the profunda femoris arteries on the right side. There is moderate stenosis in the distal SFA on the right side and high-grade stenosis of the junction of the right SFA and popliteal artery. There is two vessel runoff on the right side. On the left side, there is high-grade stenosis of the lower SFA with two vessel runoff distally. Plan: * Complex management * We have spoken with Dr. Glover and Dr. Maharaj, Mr. Edge and his significant other extensively. It appears that the toe will have to be amputated. Mr. Edge has not agreed to peripheral angiography with possible intervention d/t concerns about potential worsening renal function d/t contrast nephropathy. He states he will reconsider if the wound does not heal post toe amputation. * S/P right third digit amputation by Dr. Maharaj * Arterial u/s not completed yesterday d/t patient being in surgery - will re- order * Continue home cardiac medications for heart failure * Monitor lab * Replace electrolytes as indicated VIVIAN SILVA Jul 22, 2022 09:13
[2022-07-22] MEDS: SACUBITRIL/VALSARTAN 24/26 MG (ENTRESTO) TABLET PO SCH ×2 (09:56→20:00)
[2022-07-22] MEDS: ALLOPURINOL 100 MG (ZYLOPRIM) TAB PO SCH ×2 (09:56→20:00)
[2022-07-22] MEDS: DOCUSATE SODIUM 100 MG (COLACE) CAP PO SCH ×2 (09:56→20:00)
[2022-07-22] MEDS: SPIRONOLACTONE 25 MG (ALDACTONE) TAB PO SCH (09:57)
[2022-07-22] MEDS: oxyCODONE/APAP 5/325MG (PERCOCET 5) TABLET PO SCH ×2 (09:57→20:00)
[2022-07-22] MEDS: PIPERACILLIN SODIUM/TAZOBACTAM 4.5 GM in NS (IVPB) 100 ML IV SCH ×2 (10:00→16:29)
[2022-07-22] MEDS ORDERED: DAPT500V18 IV (10:30)
[2022-07-22] MEDS: SENNOSIDES 8.6 MG (SENOKOT) TAB PO SCH ×2 (10:50→20:01)
[2022-07-22 11:13] VITALS: BP 114/60
--- NOTE | 2022-07-22 13:42 | Progress Note ---
HARIKA HARPER 07/22/22 1342: Subjective Date Seen by a Provider: Jul 22, 2022 Time Seen by a Provider: 13:37 Subjective/Events-last exam Pt had successful amputation of the 3 digit of R foot yesterday by Dr. Maharaj. Today, pt is resting comfortably in bed. Pt notes a decrease in foot pain today and says that he is feeling better overall. Pt has been tolerating diet well and has had a BM since surgery. Pt has no complaints at this time. Pt denies nausea, vomiting, diarrhea, CP, abd pain, and SOA. Review of Systems General: No Chills, No Night Sweats HEENT: No Head Aches, No Visual Changes Pulmonary: No Dyspnea, No Cough Cardiovascular: No: Chest Pain, Palpitations Gastrointestinal: No: Nausea, Vomiting, Abdominal Pain, Diarrhea Genitourinary: No Dysuria, No Frequency Musculoskeletal: No: neck pain, shoulder pain Neurological: No: Weakness, Numbness Focused Exam Lactate Level 07/20/22 17:50: Lactic Acid Level 1.19 Objective Exam Last Set of Vital Signs Vital Signs Date Time Temp Pulse Resp B/P (MAP) Pulse Ox O2 Delivery O2 Flow Rate FiO2 07/22/22 11:13 36.5 88 18 114/60 (78) 96 Room Air 07/20/22 17:07 21 Capillary Refill : I&O Intake and Output 07/22/22 00:00 Intake Total 3440 ml Output Total 800 ml Balance 2640 ml Intake Oral 1230 ml IV Total 2210 ml Output Urine Total 800 ml # Voids 4 General: Alert, Oriented X3 HEENT: PERRLA, Mucous Memb Moist/[place] Neck: Supple, No Thyromegaly Lungs: Clear to Auscultation, Normal Air Movement Heart: Regular Rate, No Murmurs Abdomen: Soft, No Tenderness, No Hepatosplenomegaly Extremities: No Cyanosis, No Edema, Other (Right foot is wrapped in bandage and in boot, no swelling or erythema noted around bandage) Skin: No Rashes, No Significant Lesion Neuro: Normal Speech, Normal Tone Psych/Mental Status: Mental Status NL, Mood NL Results Lab Laboratory Tests 07/21/22 15:53: Glucometer 143H 07/21/22 20:41: Glucometer 217H 07/22/22 04:50: White Blood Count 13.4H, Red Blood Count 3.51L, Hemoglobin 10.6L, Hematocrit 33L , Mean Corpuscular Volume 93, Mean Corpuscular Hemoglobin 30, Mean Corpuscular Hemoglobin Concent 33, Red Cell Distribution Width 13.7, Platelet Count 227, Mean Platelet Volume 11.2, Immature Granulocyte % (Auto) 0, Neutrophils (%) (Auto) 79H, Lymphocytes (%) (Auto) 8L, Monocytes (%) (Auto) 12, Eosinophils (%) (Auto) 0, Basophils (%) (Auto) 0, Neutrophils # (Auto) 10.6H, Lymphocytes # (Auto) 1.1, Monocytes # (Auto) 1.6H, Eosinophils # (Auto) 0.0, Basophils # (Auto) 0.1, Immature Granulocyte # (Auto) 0.1, Sodium Level 140, Potassium Level 3.9, Chloride Level 107, Carbon Dioxide Level 20L, Anion Gap 13, Blood Urea Nitrogen 30H, Creatinine 2.20H, Estimat Glomerular Filtration Rate 31, BUN/Creatinine Ratio 14, Glucose Level 151H, Calcium Level 8.5, Corrected Calcium 9.3, Total Bilirubin 0.6, Aspartate Amino Transf (AST/SGOT) 13, Alanine Aminotransferase (ALT/SGPT) 12, Alkaline Phosphatase 102, Total Protein 5.7L, Albumin 3.0L 07/22/22 11:10: Glucometer 206H Microbiology 07/21/22 Gram Stain, Resulted Pending 07/21/22 Anaerobic Culture, Resulted Pending 07/21/22 Surgical Culture - Preliminary, Resulted Staphylococcus aureus 07/21/22 MRSA Screen - Final, Complete MRSA not isolated Assessment/Plan Assessment/Plan Assess & Plan/Chief Complaint 1. Sepsis -IV Zosyn 25mls/hr Q8H and Vancomycin 250mls/hr Q24H 2. Osteomyelitis and gangrene of 3rd digit on R foot -Had MRI confirming -Dr. Vela and Nicko will evaluate pt before proceeding with next steps in treatment plan 07/22: -successful amputation of 3 digit on R foot by Dr. Maharaj 3. NIDDM -takes metformin -Managed by Dr. Glover 4. Diabetic neuropathy 5. PAD -CT images from 12/16/21 demonstrated stenosis of varying degrees of the SFA and popliteal artery 6. HTN -controlled 7. CAD -cardiac cath 02/17/17 with stent placement due to near total occlusion of LAD 8. Ischemic Cardiomyopathy -Per cardiology notes, MPI on 04/16/20 showed inferoapical myocardial infarction with a small amt of tosin-infarct ischemia. Anteroapical akinesis. LVEF 30% 8. COPD -controlled 9. Severe MR -- S/P successful mitraclip placement by Dr. Vazquez at [facility] on 08/26/21 10. Chronic CHF -most recent ECHO showed LVEF 30-35%, grade 1 diastolic dysfunction, mild to mod MR, AoV thicknening (consistent with sclerosis), and PASP 20mmHg -MUGA on 05/21/22 was significant for ischemic cardiomyopathy with anteroapical akinesis and with left ventricular ejection fraction of 43%. 10. CKD IV 07/22: -moderate increase in BUN and Cr from yesterday, 30 and 2.2, but otherwise holding stable 11. Renal Artery Stenosis -CT images on 12/16/21 showed significant stenosis of L renal artery 12. H/o GI bleed -multiple hospitalizations requiring transfusions -Last EGD/colonoscopy 05/[address] Maharaj found moderate gastritis and mild chronic stage 1 external and internal hemorrhoids 13. Chronic Joint pain -managed by Dr. Glover 14. Carotid Artery Disease -noted on carotid u/s on 11/17/18 Plan: Pt had successful amputation of infected toe, will continue IV abx PT Pain control Clinical Quality Measures Admission Status Admission Dx 1. Sepsis -IV Zosyn 25mls/hr Q8H and Vancomycin 250mls/hr Q24H 2. Osteomyelitis and gangrene of 3rd digit on R foot -Had MRI confirming -Dr. Vela and Nicko will evaluate pt before proceeding with next steps in treatment plan 3. NIDDM -takes metformin -Managed by Dr. Glover 4. Diabetic neuropathy 5. PAD -CT images from 12/16/21 demonstrated stenosis of varying degrees of the SFA and popliteal artery 6. HTN -controlled 7. CAD -cardiac cath 02/17/17 with stent placement due to near total occlusion of LAD 8. Ischemic Cardiomyopathy -Per cardiology notes, MPI on 04/16/20 showed inferoapical myocardial infarction with a small amt of tosin-infarct ischemia. Anteroapical akinesis. LVEF 30% 8. COPD -controlled 9. Severe MR -- S/P successful mitraclip placement by Dr. Vazquez at [facility] on 08/26/21 10. Chronic CHF -most recent ECHO showed LVEF 30-35%, grade 1 diastolic dysfunction, mild to mod MR, AoV thicknening (consistent with sclerosis), and PASP 20mmHg -MUGA on 05/21/22 was significant for ischemic cardiomyopathy with anteroapical akinesis and with left ventricular ejection fraction of 43%. 10. CKD IV 11. Renal Artery Stenosis -CT images on 12/16/21 showed significant stenosis of L renal artery 12. H/o GI bleed -multiple hospitalizations requiring transfusions -Last EGD/colonoscopy 05/[address] Maharaj found moderate gastritis and mild chronic stage 1 external and internal hemorrhoids 13. Chronic Joint pain -managed by Dr. Glover 14. Carotid Artery Disease -noted on carotid u/s on 11/17/18 Plan: Continue IV abx MRI was significant for osteomyelitis of 3 digit on R foot. Pt was seen by Dr. Vela and Dr. Maharaj. Pt will proceed with toe amputation but would like to postpone peripheral angiography with possible intervention d/t concerns about possible contrast nephropathy. NPO DVT/VTE Risk/Contraindication: Contraindications-Mechi: Other *list below* Other: lower leg cellulitis SUE GLOVER DO 07/22/222102: Subjective Subjective/Events-last exam Pain in foot requires pain meds PT OT will be ordered USG right leg performed Dr Vela and Dr Maharaj appreciated Review of Systems General: Fatigue, Malaise Objective Exam General: Alert, Oriented X3, Cooperative, No Acute Distress Lungs: Clear to Auscultation, Normal Air Movement Heart: Regular Rate, Normal S1, Normal S2, No Murmurs Psych/Mental Status: Mental Status NL, Mood NL Assessment/Plan Assessment/Plan Assess & Plan/Chief Complaint Pain control Monitor closely Supervisory-Addendum Brief Verification & Attestation Participated in pt care: history, MDM, physical Personally performed: exam, history, MDM, supervision of care Care discussed with: Medical Student Procedures: n/a Results interpretation: Verified all documentation Verification and Attestation of Medical Student E/M Service A medical student performed and documented this service in my presence. I reviewed and verified all information documented by the medical student and made modifications to such information, when appropriate. I personally performed the physical exam and medical decision making. Sue Glover, Jul 22, 2022,21:01 HARIKA HARPER Jul 22, 2022 13:42 SUE GLOVER DO Jul 22, 2022 21:03
--- NOTE | 2022-07-22 13:48 | Progress Note ---
Subjective Date Seen by a Provider: Jul 22, 2022 Time Seen by a Provider: 13:00 Subjective/Events-last exam doing well. no pain issues. tolerating diet. contunued mild elevation wbc. Focused Exam Lactate Level 07/20/22 17:50: Lactic Acid Level 1.19 Objective Exam Vital Signs Date Time Temp Pulse Resp B/P (MAP) Pulse Ox O2 Delivery O2 Flow Rate FiO2 07/22/22 11:13 36.5 88 18 114/60 (78) 96 Room Air 07/22/22 10:57 97 Room Air 07/22/22 08:00 96 Room Air 07/22/22 07:46 36.6 88 18 125/55 (78) 97 Room Air 07/22/22 07:17 77 07/22/22 07:05 92 Room Air 07/22/22 04:50 36.9 84 18 133/61 (85) 96 Room Air 07/22/22 01:00 60 07/21/22 23:43 38.2 07/21/22 23:40 38.2 97 18 115/58 (77) 96 Room Air 07/21/22 22:09 45 07/21/22 20:42 37.0 07/21/22 20:15 96 Room Air 07/21/22 20:12 37.0 07/21/22 20:00 37.7 96 17 164/69 (100) 96 Room Air 07/21/22 18:54 98 Room Air 07/21/22 15:30 37.2 87 19 134/58 (83) 98 Room Air 07/21/22 15:30 37.0 18 146/68 (94) 100 Room Air 07/21/22 15:30 Room Air 07/21/22 15:20 18 140/67 (91) 100 Room Air 07/21/22 15:15 Room Air 07/21/22 15:10 18 122/60 (80) 100 Room Air 07/21/22 15:02 37.4 16 116/86 (96) 100 Room Air 07/21/22 15:02 Room Air I & O 07/22/22 07:00 Intake Total 2830 ml Output Total 600 ml Balance 2230 ml Capillary Refill : General Appearance: No Apparent Distress HEENT: PERRL/EOMI Respiratory: Chest Non Tender, Lungs Clear Cardiovascular: Regular Rate, Rhythm Gastrointestinal: normal bowel sounds, non tender, soft Extremity: Other (wound dressed/dry) Neurologic/Psychiatric: Alert, Oriented x3 Skin: Normal Color Lymphatic: No Adenopathy Results Lab Laboratory Tests 07/21/22 15:53: Glucometer 143H 07/21/22 20:41: Glucometer 217H 07/22/22 04:50: White Blood Count 13.4H, Red Blood Count 3.51L, Hemoglobin 10.6L, Hematocrit 33L , Mean Corpuscular Volume 93, Mean Corpuscular Hemoglobin 30, Mean Corpuscular Hemoglobin Concent 33, Red Cell Distribution Width 13.7, Platelet Count 227, Mean Platelet Volume 11.2, Immature Granulocyte % (Auto) 0, Neutrophils (%) (Auto) 79H, Lymphocytes (%) (Auto) 8L, Monocytes (%) (Auto) 12, Eosinophils (%) (Auto) 0, Basophils (%) (Auto) 0, Neutrophils # (Auto) 10.6H, Lymphocytes # (Auto) 1.1, Monocytes # (Auto) 1.6H, Eosinophils # (Auto) 0.0, Basophils # (Auto) 0.1, Immature Granulocyte # (Auto) 0.1, Sodium Level 140, Potassium Level 3.9, Chloride Level 107, Carbon Dioxide Level 20L, Anion Gap 13, Blood Urea Nitrogen 30H, Creatinine 2.20H, Estimat Glomerular Filtration Rate 31, BUN/Creatinine Ratio 14, Glucose Level 151H, Calcium Level 8.5, Corrected Calcium 9.3, Total Bilirubin 0.6, Aspartate Amino Transf (AST/SGOT) 13, Alanine Aminotransferase (ALT/SGPT) 12, Alkaline Phosphatase 102, Total Protein 5.7L, Albumin 3.0L 07/22/22 11:10: Glucometer 206H Microbiology 07/21/22 Gram Stain, Resulted Pending 07/21/22 Anaerobic Culture, Resulted Pending 07/21/22 Surgical Culture - Preliminary, Resulted Staphylococcus aureus 07/21/22 MRSA Screen - Final, Complete MRSA not isolated Assessment/Plan Assessment/Plan Assess & Plan/Chief Complaint osteomyelitis right 3rd toe s/p amputation phalanx. ambulate. cont IV abx. cont tight glycemic control Clinical Quality Measures DVT/VTE Risk/Contraindication: Contraindications-Mechi: Other *list below* Other: lower leg cellulitis MARYLU DELGADO MD Jul 22, 2022 13:48
--- NOTE | 2022-07-22 14:16 | Diagnostic Imaging Report ---
TECHNIQUE: Live grayscale and color Doppler ultrasound was performed of the right lower extremity arterial system. REASON FOR EXAM: Nonhealing wound in the right lower extremity. COMPARISON: None. FINDINGS: Triphasic waveforms are seen in the right common femoral artery. Biphasic waveforms are seen in the right profunda femoris artery. There are monophasic waveforms in the right superficial femoral, popliteal, anterior tibial and posterior tibial arteries. Elevated flow velocities are seen in the distal superficial femoral artery of 246 cm/s. The dorsalis pedis artery was not evaluated due to bandages overlying the foot due to recent toe amputation. IMPRESSION: 1. Monophasic waveforms in the right superficial femoral, popliteal, and anterior and posterior tibial arteries. Elevated flow velocities are seen in the distal right superficial femoral artery, suggestive of focal stenosis. 2. The right dorsalis pedis artery was not evaluated due to overlying bandages secondary to a recent toe amputation. 3. Normal triphasic and biphasic waveforms in the right common femoral and profunda femoris arteries. Dictated by: Dictated on workstation # [id number]
[2022-07-22 15:19] VITALS: BP 129/64
--- NOTE | 2022-07-22 16:52 | Progress Note - Cardiology ---
Cardiology SOAP Progress Note Subjective: Gen malaise and weakness present No cp or palp or syncope or shortness of breath No n/v/d No focal weakness No foot pain at this time Objective: I&O/Vital Signs 07/22/22 07/22/22 07/22/22 07/22/22 04:50 07:05 07:17 07:46 Temp 36.9 36.6 Pulse 84 77 88 Resp 18 18 B/P (MAP) 133/61 (85) 125/55 (78) Pulse Ox 96 92 97 O2 Delivery Room Air Room Air Room Air 07/22/22 07/22/22 07/22/22 07/22/22 08:00 10:57 11:13 13:11 Temp 36.5 Pulse 88 60 Resp 18 B/P (MAP) 114/60 (78) Pulse Ox 96 97 96 O2 Delivery Room Air Room Air Room Air 07/22/22 07/22/22 15:19 15:36 Temp 36.4 Pulse 75 Resp 18 B/P (MAP) 129/64 (85) Pulse Ox 97 O2 Delivery Room Air Room Air 07/22/22 00:00 Intake Total 1230 ml Output Total 600 ml Balance 630 ml Weight (Pounds): 195 Weight (Ounces): 11.2 Weight (Calculated Kilograms): 88.129152 Constitutional: AAO x 3, well-developed, well-nourished Respiratory: No accessory muscle use, No respiratory distress; chest expansion is symmetric, chest is bilaterally symmetric, lungs clear to auscultation Cardiovascular: regular rate-rhythm; No JVD; S1 and S2 Gastrointestional: No tender; soft, round, audible bowel sounds Extremities: no lower extremity edema bilateral, wound (S/P right foot, third digit ampuation - dressing in place) Neurologic/Psychiatric: other (moves all limbs equally) Skin: other (see above) Results/Procedures: Labs Laboratory Tests 07/21/22 20:41: Glucometer 217H 07/22/22 04:50: White Blood Count 13.4H, Red Blood Count 3.51L, Hemoglobin 10.6L, Hematocrit 33L , Mean Corpuscular Volume 93, Mean Corpuscular Hemoglobin 30, Mean Corpuscular Hemoglobin Concent 33, Red Cell Distribution Width 13.7, Platelet Count 227, Mean Platelet Volume 11.2, Immature Granulocyte % (Auto) 0, Neutrophils (%) (Auto) 79H, Lymphocytes (%) (Auto) 8L, Monocytes (%) (Auto) 12, Eosinophils (%) (Auto) 0, Basophils (%) (Auto) 0, Neutrophils # (Auto) 10.6H, Lymphocytes # (Auto) 1.1, Monocytes # (Auto) 1.6H, Eosinophils # (Auto) 0.0, Basophils # (Auto) 0.1, Immature Granulocyte # (Auto) 0.1, Sodium Level 140, Potassium Level 3.9, Chloride Level 107, Carbon Dioxide Level 20L, Anion Gap 13, Blood Urea Nitrogen 30H, Creatinine 2.20H, Estimat Glomerular Filtration Rate 31, BUN/Creatinine Ratio 14, Glucose Level 151H, Calcium Level 8.5, Corrected Calcium 9.3, Total Bilirubin 0.6, Aspartate Amino Transf (AST/SGOT) 13, Alanine Aminotransferase (ALT/SGPT) 12, Alkaline Phosphatase 102, Total Protein 5.7L, Albumin 3.0L 07/22/22 11:10: Glucometer 206H 07/22/22 15:22: Glucometer 163H 07/22/22 16:40: Microbiology 07/21/22 Gram Stain - Final, Resulted 07/21/22 Anaerobic Culture, Resulted Pending 07/21/22 Surgical Culture - Preliminary, Resulted Staphylococcus aureus 07/21/22 MRSA Screen - Final, Complete MRSA not isolated Laboratory Tests 07/20/22 17:50 07/21/22 11:00 07/22/22 04:50 A/P: Assessment: 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 Maharaj and Dr. Fam CAD and ischemic cardiomyopathy: - Card cath of 02/09/17: near-total occlusion of LAD treated with overlapping Resolute 2.25x30 and 2.5x14 stents and both postdilated with a 2.75 mm balloon to 2.9 mm diameter; LCX and RCA had relatively mod disease; elevated LVEDP - MPI of April 16, 2020 showed inferoapical myocardial infarction with a small amt of toisn-infarct ischemia. Anteroapical akinesis. LVEF 30%. Chronic systolic and diastolic CHF: - due to ischemic cardiomyopathy and severe mitral regurg - Echo 02/17/21: LVEF 30-35%, mod cardiomegaly (LV, RA, LA), mod to sev MR, AoV sclerosis w/o stenosis, mild MR, PASP 45-50 mmHg - Echocardiogram of 12-25-21 showed mod concentric hypertrophy. LVEF 25-30%. Akinesis of the anterior myocardium. LA is mod dilated. RA is mildly dilated. Mod MR, directed eccentrically. AoV thickening, consistent with sclerosis with mild AoR. A trivial free flowing pericardial effusion is identified. - Echo for 02/25/22 (as part of participation in MitraClip trial at [facility]): LVEF 37%, [place] device with mild residual MR, severe LV dilatation, global hypo, apical akinesis - Echocardiogram of 03-19-22 showed LVEF 30-35%. Akinesis of the apical myocardium. Grade 1 diastolic dysfunction. Mild to mod MR. AoV thickening, consistent with sclerosis. Trivial regurg. PASP 20 mmHg - MUGA 05-21-22 showed: Ischemic cardiomyopathy with anteroapical akinesis and with left ventricular ejection fraction of 43%. Severe MR: - Echocardiogram from 02-17-21 showed mod to severe MR - Referred to Dr. Rodriguez per pt request - advised he keep referral to [facility] - Referred to [facility]: Dr. Garg at [facility] has offered a minimally invasive mitral valve replacement, but the pt request an even less invasive approach and desires a mitraclip - S/P successful mitraclip placement by Dr. Vazquez at [facility] on 08-26-21 Hypertension: - controlled H/o GI bleed : - May 2018 hosp with GI bleed requiring multiple transfusions. - Endoscopy by Dr Maharaj in early May 2018: reflux esophagitis (grade 2), no HH, moderate gastritis with small antral erosion.mild chronic stage 1 ext and int hemorrhoids. - Long hosp (April and May 2018) with diffuse myopathy and weakness following GI bleed and blood transfusions. Thrombocytosis during hosp of May 2018, most likely reactive, followed and treated by Dr Maher Chronic joint pains of unclear etiology: - gout vs RMSF vs statins. DM II: - followed by PCP H/o tobaccoism: - Quit tobacco use in or around 1999 CKD IV PFT of March 31, 2017: spirometry is WNL Carotid dz: Mild carotid arterial disease on carotid u/s of 11/17/18 No AAA on AAA screening scan of 11/17/18 PAD and renal artery stenosis - CTA images of 12-16-2021 (following abnormal segmentals) demonstrate diffuse atherosclerotic plaquing of the aorta without evidence of aneurysm. There is a significant left renal artery stenosis. There are stenoses of the origins of the profunda femoris arteries on the right side. There is moderate stenosis in the distal SFA on the right side and high-grade stenosis of the junction of the right SFA and popliteal artery. There is two vessel runoff on the right side. On the left side, there is high-grade stenosis of the lower SFA with two vessel ru noff distally. Plan: * Complex management * Conservative management of PAD per patient request (see note of 07/21/22) * S/P right third digit amputation by Dr. Maharaj * Arterial u/s not completed yesterday d/t patient being in surgery - will re- order * Continue home cardiac medications for heart failure * Monitor lab * Replace electrolytes as indicated RHYS HINKLE MD FACP FAC CCDS Jul 22, 2022 16:52
[2022-07-22] MEDS ORDERED: TROUGH ORDER-PHARMACY XX NR (17:00)
[2022-07-22 19:19] VITALS: BP 144/65
[2022-07-22] MEDS: VANCOMYCIN 1 GM/NS 250 ML IVPB IV SCH ×2 (19:57)
[2022-07-22] MEDS: TAMSULOSIN 0.4 MG (FLOMAX) CAP PO SCH (20:00)
[2022-07-22] MEDS: FERROUS SULF 325 MG (IRON) TAB PO SCH (20:00)
[2022-07-22] MEDS: ZOLPIDEM 5 MG (AMBIEN) TAB PO SCH (20:00)
[2022-07-22] MEDS: BETHANECHOL 25 MG (URECHOLINE) TAB PO SCH (20:00)
[2022-07-22] MEDS: meTOproloL SUCCINATE 50 MG (TOPROL XL) TAB PO SCH (20:01)
[2022-07-22] MEDS: ACETAMINOPHEN 325 MG TABLET PO PRN (20:02)
[2022-07-22 23:18] VITALS: BP 112/56
[2022-07-23] MEDS: PIPERACILLIN SODIUM/TAZOBACTAM 4.5 GM in NS (IVPB) 100 ML IV SCH ×2 (00:13→08:56)
[2022-07-23 03:17] VITALS: BP 136/67
[2022-07-23] MEDS: PANTOPRAZOLE 40 MG (PROTONIX) TAB PO SCH (05:26)
[2022-07-23] MEDS: NS IV 1000 ML 1,000 ML IV SCH (05:27)
[2022-07-23 05:29] LABS: BASOPHILS # (AUTO) 0.1 10^3/uL (0.0-0.1); BASOPHILS % (AUTO) 1 % (0-10); EOSINOPHILS # (AUTO) 0.2 10^3/uL (0.0-0.3); EOSINOPHILS % (AUTO) 1 % (0-10); HEMATOCRIT 33 % (40-54); HEMOGLOBIN 10.6 g/dL (13.3-17.7); LYMPHOCYTES % (AUTO) 9 % (12-44); MEAN CORPUSCULAR HEMOGLOBIN 30 pg (25-34); MEAN CORPUSCULAR HGB CONC 32 g/dL (32-36); MEAN CORPUSCULAR VOLUME 93 fL (80-99); MEAN PLATELET VOLUME 11.1 fL (9.0-12.2); MONOCYTES # (AUTO) 1.1 10^3/uL (0.0-1.0); MONOCYTES % (AUTO) 10 % (0-12); NEUTROPHILS # (AUTO) 8.7 10^3/uL (1.8-7.8); NEUTROPHILS % (AUTO) 78 % (42-75); PLATELET COUNT 237 10^3/uL (130-400)
[2022-07-23 05:54] LABS: ALBUMIN 2.9 GM/DL (3.2-4.5); BILIRUBIN,TOTAL 0.7 MG/DL (0.1-1.0); CALCIUM 8.8 MG/DL (8.5-10.1); CREATININE SERUM 1.86 MG/DL (0.60-1.30); TOTAL PROTEIN 6.1 GM/DL (6.4-8.2)
[2022-07-23] MEDS: inSUlin ASPART (NovoLOG) 1 UNIT/0.01 ML (CHARGE PER UNIT) SC SCH ×5 (05:59→21:41)
[2022-07-23 07:24] VITALS: BP 169/73
[2022-07-23] MEDS: RT-ALBUTEROL/IPRATROPIUM 3 ML (DUONEB) VIAL INH SCH ×4 (08:07→18:58)
[2022-07-23 08:10] VITALS: BP 169/73
[2022-07-23] MEDS: oxyCODONE/APAP 5/325MG (PERCOCET 5) TABLET PO SCH ×2 (08:56→20:03)
[2022-07-23] MEDS: DOCUSATE SODIUM 100 MG (COLACE) CAP PO SCH ×2 (08:56→19:57)
[2022-07-23] MEDS: SACUBITRIL/VALSARTAN 24/26 MG (ENTRESTO) TABLET PO SCH ×2 (08:56→20:03)
[2022-07-23] MEDS: ALLOPURINOL 100 MG (ZYLOPRIM) TAB PO SCH ×2 (08:56→20:03)
[2022-07-23] MEDS: SPIRONOLACTONE 25 MG (ALDACTONE) TAB PO SCH (08:56)
[2022-07-23] MEDS: SENNOSIDES 8.6 MG (SENOKOT) TAB PO SCH ×2 (09:14→20:02)
--- NOTE | 2022-07-23 10:29 | Progress Note - Cardiology ---
Cardiology SOAP Progress Note Objective: I&O/Vital Signs 07/23/22 07/23/22 07/23/22 07/23/22 07:24 07:50 08:07 08:10 Temp 37.5 37.5 Pulse 82 73 82 Resp 18 B/P (MAP) 169/73 (105) Pulse Ox 95 95 95 O2 Delivery Room Air Room Air O2 Flow Rate 0.00 FiO2 21 07/23/22 07/23/22 07/23/22 07/23/22 11:07 11:17 13:05 15:29 Temp 36.8 Pulse 84 65 Resp 18 B/P (MAP) 135/83 (100) Pulse Ox 94 94 95 O2 Delivery Room Air Room Air Room Air O2 Flow Rate 0.00 0.00 07/23/22 00:00 Intake Total 1710 ml Balance 1710 ml Weight (Pounds): 195 Weight (Ounces): 11.2 Weight (Calculated Kilograms): 88.566106 Constitutional: AAO x 3, well-developed, well-nourished Respiratory: No accessory muscle use, No respiratory distress; chest expansion is symmetric, chest is bilaterally symmetric, lungs clear to auscultation Cardiovascular: regular rate-rhythm; No JVD; S1 and S2 Gastrointestional: No tender; soft, round, audible bowel sounds Extremities: no lower extremity edema bilateral, wound (S/P right foot, third digit ampuation - dressing in place) Neurologic/Psychiatric: other (moves all limbs equally) Skin: other (see above) Results/Procedures: Labs Laboratory Tests 07/22/22 16:40: Vancomycin Level Trough 15.0 07/22/22 20:20: Glucometer 140H 07/23/22 05:25: White Blood Count 11.0, Red Blood Count 3.52L, Hemoglobin 10.6L, Hematocrit 33L, Mean Corpuscular Volume 93, Mean Corpuscular Hemoglobin 30, Mean Corpuscular Hemoglobin Concent 32, Red Cell Distribution Width 13.7, Platelet Count 237, Mean Platelet Volume 11.1, Immature Granulocyte % (Auto) 1, Neutrophils (%) (Auto) 78H, Lymphocytes (%) (Auto) 9L, Monocytes (%) (Auto) 10, Eosinophils (%) (Auto) 1, Basophils (%) (Auto) 1, Neutrophils # (Auto) 8.7H, Lymphocytes # (Auto) 1.0, Monocytes # (Auto) 1.1H, Eosinophils # (Auto) 0.2, Basophils # (Auto) 0.1, Immature Granulocyte # (Auto) 0.1, Sodium Level 141, Potassium Level 4.0, Chloride Level 110H, Carbon Dioxide Level 19L, Anion Gap 12, Blood Urea Nitrogen 24H, Creatinine 1.86H, Estimat Glomerular Filtration Rate 38, BUN/Creatinine Ratio 13, Glucose Level 115H, Calcium Level 8.8, Corrected Calcium 9.7, Total Bilirubin 0.7, Aspartate Amino Transf (AST/SGOT) 13, Alanine Aminotransferase (ALT/SGPT) 11, Alkaline Phosphatase 106, Total Protein 6.1L, Albumin 2.9L 07/23/22 11:04: Glucometer 150H Microbiology 07/21/22 Gram Stain - Final, Resulted 07/21/22 Anaerobic Culture - Preliminary, Resulted No anaerobes isolated 07/21/22 Surgical Culture - Final, Resulted Staphylococcus aureus 07/21/22 MRSA Screen - Final, Complete MRSA not isolated A/P: Assessment: 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 Maharaj and Dr. Fam CAD and ischemic cardiomyopathy: - Card cath of 02/09/17: near-total occlusion of LAD treated with overlapping Resolute 2.25x30 and 2.5x14 stents and both postdilated with a 2.75 mm balloon to 2.9 mm diameter; LCX and RCA had relatively mod disease; elevated LVEDP - MPI of April 16, 2020 showed inferoapical myocardial infarction with a small amt of tosin-infarct ischemia. Anteroapical akinesis. LVEF 30%. Chronic systolic and diastolic CHF: - due to ischemic cardiomyopathy and severe mitral regurg - Echo 02/17/21: LVEF 30-35%, mod cardiomegaly (LV, RA, LA), mod to sev MR, AoV sclerosis w/o stenosis, mild MR, PASP 45-50 mmHg - Echocardiogram of 12-25-21 showed mod concentric hypertrophy. LVEF 25-30%. Akinesis of the anterior myocardium. LA is mod dilated. RA is mildly dilated. Mod MR, directed eccentrically. AoV thickening, consistent with sclerosis with mild AoR. A trivial free flowing pericardial effusion is identified. - Echo for 02/25/22 (as part of participation in MitraClip trial at [facility]): LVEF 37%, [place] device with mild residual MR, severe LV dilatation, global hypo, apical akinesis - Echocardiogram of 03-19-22 showed LVEF 30-35%. Akinesis of the apical myocardium. Grade 1 diastolic dysfunction. Mild to mod MR. AoV thickening, consistent with sclerosis. Trivial regurg. PASP 20 mmHg - MUGA 05-21-22 showed: Ischemic cardiomyopathy with anteroapical akinesis and with left ventricular ejection fraction of 43%. Severe MR: - Echocardiogram from 02-17-21 showed mod to severe MR - Referred to Dr. Rodriguez per pt request - advised he keep referral to [facility] - Referred to [facility]: Dr. Garg at [facility] has offered a minimally invasive mitral valve replacement, but the pt request an even less invasive approach and desires a mitraclip - S/P successful mitraclip placement by Dr. Vazquez at [facility] on 08-26-21 Hypertension: - controlled H/o GI bleed : - May 2018 hosp with GI bleed requiring multiple transfusions. - Endoscopy by Dr Maharaj in early May 2018: reflux esophagitis (grade 2), no HH, moderate gastritis with small antral erosion.mild chronic stage 1 ext and int hemorrhoids. - Long hosp (April and May 2018) with diffuse myopathy and weakness following GI bleed and blood transfusions. Thrombocytosis during hosp of May 2018, most likely reactive, followed and treated by Dr Maher Chronic joint pains of unclear etiology: - gout vs RMSF vs statins. DM II: - followed by PCP H/o tobaccoism: - Quit tobacco use in or around 1999 CKD IV PFT of March 31, 2017: spirometry is WNL Carotid dz: Mild carotid arterial disease on carotid u/s of 11/17/18 No AAA on AAA screening scan of 11/17/18 PAD and renal artery stenosis - CTA images of 12-16-2021 (following abnormal segmentals) demonstrate diffuse atherosclerotic plaquing of the aorta without evidence of aneurysm. There is a significant left renal artery stenosis. There are stenoses of the origins of the profunda femoris arteries on the right side. There is moderate stenosis in the distal SFA on the right side and high-grade stenosis of the junction of the right SFA and popliteal artery. There is two vessel runoff on the right side. On the left side, there is high-grade stenosis of the lower SFA with two vessel runoff distally. Plan: * Complex management * Conservative management of PAD per patient request (see note of 07/21/22) * S/P right third digit amputation by Dr. Maharaj * Monitor lab * Replace electrolytes as indicated VIVIAN SILVA Jul 23, 2022 10:29
--- NOTE | 2022-07-23 10:38 | Physical Therapy Evaluation ---
PT Evaluation-General Medical Diagnosis Admission Date Jul 20, 2022 at 16:28 Medical Diagnosis: right foot cellulitis Onset Date: Jul 20, 2022 Therapy Diagnosis Therapy Diagnosis: impaired mobility/weakness Height/Weight Height (Feet): 5 Height (Inches): 11.00 Weight (Pounds): 195 Weight (Ounces): 11.2 Precautions Precautions/Isolations: Fall Prevention, Standard Precautions Weight Bear Status Weight Bearing/Tolerated Weight Bearing/Tolerated Referral Physician: Cristel Reason for Referral: Evaluation/Treatment Medical History Pertinent Medical History: CAD, DM, Heart Failure, HTN, Neuropathy, Renal Insufficiency Additional Medical History gout Current History Direct admit secondary to right 3rd toe cellulitis (s/p right 3rd toe ampu tation) Reviewed History: Yes Social History Home: Single Level Current Living Status: Spouse Prior Prior Level of Function SCALE: Activities may be completed with or without assistive devices. 7-Qypbifeimn-tsgwdpa completes the activity by him/herself with no assistance from a helper. 5-Set-up or Clean-up Assistance-helper sets up or cleans up; patient completes activity. [place] assists only prior to or following the activity. 4-Supervision or Touching Assistance-helper provides verbal cues and/or touchi ng/steadying and/or contact guard assistance as patient completes activity. Assistance may be provided throughout the activity or intermittently. 3-Partial/Moderate Assistance-helper does LESS THAN HALF the effort. [place] lifts, holds or supports trunk or limbs, but provides less than half the effort. 2-Substantial/Maximal Assistance-helper does MORE THAN HALF the effort. [place] lifts or holds trunk or limbs and provides more than half the effort. 1-Nsjawwnsn-jbiake does ALL the effort. Patient does none of the effort to complete the activity. Or, the assistance of 2 or more helpers is required for the patient to complete the activity. If activity was not attempted, code reason: 7-Patient Refused. 9-Not Applicable-not attempted and the patient did not perform the activity before the current illness, exacerbation or injury. 10-Not Attempted due to Environmental Limitations-(lack of equipment, weather restraints, etc.). 88-Not Attempted due to Medical Conditions or Safety Concerns. Bed Mobility: 6 Transfers (B,C,W/C): 6 Gait: 6 Stairs: 6 Indoor Mobility (Ambulation): Independent Stairs: Independent Prior Devices Use: None, Walker, Other-see list below (cane) PT Evaluation-Current Subjective Patient has 10/10 left LE pain due to "gout" per patient report. Patient demanded spouse assist patient with bed mobility due to left LE pain. Pain Numeric Pain Scale: 10-Worst Possible Pain Location: Left Location Body Site: Knee Pain Description: Sharp Objective Patient Orientation: Normal For Age Attachments: IV ROM/Strength ROM Lower Extremities bilateral LE WFL Strength Lower Extremities NT due to patient adamantly declined Integumentary/Posture Integumentary refer to nursing notes Bowel Incontinence: No Bladder Incontinence: No Posture WFL Neuromuscular (Tone, Coordination, Reflexes) grossly intact Sensory Vision: Functional Hearing: Functional Sensation Right Lower Extremit: Impaired Sensation Left Lower Extremity: Impaired Transfers Lying to Sitting/Side of Bed(Q: 3 Sit to Stand (QC): 88 (attempted to FWW x 3 sets with patient unable to perform due to left LE pain) Gait Does the Patient Walk?: No and Walking Goal IS indicated Balance Sitting Static: Normal Sitting Dynamic: Normal Assessment/Needs Patient ceased treatment due to left LE pain. RN notified. PT to increase activity as tolerated/allowed by patient. Rehab Potential: Fair PT Support Assistant Goals Detention Goals PT Support Assistant Goals Time Frame: Aug 01, 2022 Roll Left & Right (QC): 6 Sit to Lying (QC): 6 Lying-Sitting on Side/Bed(QC): 6 Sit to Stand (QC): 6 Chair/Tix-sm-Lnaza Xfer(QC): 6 Toilet Transfer (QC): 6 Walk 10 feet (QC): 6 Walk 50ft with 2 Turns (QC): 6 Walk 150 ft (QC): 6 PT Plan Problem List Problem List: Activity Tolerance, Functional Strength, Safety, Balance, Gait, Transfer, Bed Mobility, ROM, Other (left LE pain) Treatment/Plan Treatment Plan: Continue Plan of Care Treatment Plan: Bed Mobility, Education, Functional Activity Roly, Functional Strength, Gait, Safety, Therapeutic Exercise, Transfers Treatment Duration: Aug 01, 2022 Frequency: 6 times per week Estimated Hrs Per Day: .25 hour per day Patient and/or Family Agrees t: Yes Time/GCodes Time In: 830 Time Out: 848 Total Billed Treatment Time: 18 Total Billed Treatment 1 visit EVModC 18 min MARTHA BEARD PT Jul 23, 2022 10:38
[2022-07-23 11:07] VITALS: BP 135/83
[2022-07-23] MEDS: COLCHICINE 0.6 MG (COLCRYS) TABLET PO SCH ×5 (11:35→19:56)
--- NOTE | 2022-07-23 11:58 | Progress Note ---
MEREDITHHARIKA 07/23/22 1158: Subjective Date Seen by a Provider: Jul 23, 2022 Time Seen by a Provider: 11:53 Subjective/Events-last exam Pt is resting in bed with both legs propped up. Pt states improvement of R toe pain but now notes some medial L knee pain with movement. Pt states the pain started prior to coming to the hospital but worsened today. Pt states that he was unable to do PT this morning due to the pain. Pt has a h/o gout for which he takes allopurinol, and states that the pain is similar to when he is experiencing a flare. On inspection, L knee is not erythematous or swollen and pain is not reproducible with palpation. Otherwise, pt has no other complaints. Pt has been tolerating diet, voiding, and having BMs without issue. Pt denies nausea, vomiting, diarrhea, CP, abd pain, and SOA. Review of Systems General: No Chills, No Night Sweats HEENT: No Head Aches, No Visual Changes Pulmonary: No Dyspnea, No Cough Cardiovascular: No: Chest Pain, Palpitations Gastrointestinal: No: Nausea, Vomiting, Abdominal Pain, Diarrhea Genitourinary: No Dysuria, No Frequency Musculoskeletal: No: neck pain, shoulder pain Neurological: No: Weakness, Numbness Focused Exam Lactate Level 07/20/22 17:50: Lactic Acid Level 1.19 Objective Exam Last Set of Vital Signs Vital Signs Date Time Temp Pulse Resp B/P (MAP) Pulse Ox O2 Delivery O2 Flow Rate FiO2 07/23/22 11:17 94 Room Air 0.00 07/23/22 11:07 36.8 84 18 135/83 (100) 07/23/22 08:10 21 Capillary Refill : I&O Intake and Output 07/22/22 23:59 Intake Total 2110 ml Balance 2110 ml Intake Oral 1760 ml IV Total 350 ml # Voids 6 General: Alert, Oriented X3, Cooperative HEENT: PERRLA, Mucous Memb Moist/[place] Neck: Supple, No LAD Heart: Regular Rate, No Murmurs, Rubs Abdomen: Soft, No Tenderness Extremities: No Cyanosis, No Edema, No Tenderness/Swelling, Other (Bandage and boot on R foot) Skin: No Rashes, No Significant Lesion Neuro: Normal Speech, Normal Tone Psych/Mental Status: Mental Status NL, Mood NL Results Lab Laboratory Tests 07/22/22 15:22: Glucometer 163H 07/22/22 16:40: Vancomycin Level Trough 15.0 07/22/22 20:20: Glucometer 140H 07/23/22 05:25: White Blood Count 11.0, Red Blood Count 3.52L, Hemoglobin 10.6L, Hematocrit 33L, Mean Corpuscular Volume 93, Mean Corpuscular Hemoglobin 30, Mean Corpuscular Hemoglobin Concent 32, Red Cell Distribution Width 13.7, Platelet Count 237, Mean Platelet Volume 11.1, Immature Granulocyte % (Auto) 1, Neutrophils (%) (Auto) 78H, Lymphocytes (%) (Auto) 9L, Monocytes (%) (Auto) 10, Eosinophils (%) (Auto) 1, Basophils (%) (Auto) 1, Neutrophils # (Auto) 8.7H, Lymphocytes # (Auto) 1.0, Monocytes # (Auto) 1.1H, Eosinophils # (Auto) 0.2, Basophils # (Auto) 0.1, Immature Granulocyte # (Auto) 0.1, Sodium Level 141, Potassium Level 4.0, Chloride Level 110H, Carbon Dioxide Level 19L, Anion Gap 12, Blood Urea Nitrogen 24H, Creatinine 1.86H, Estimat Glomerular Filtration Rate 38, BUN/Creatinine Ratio 13, Glucose Level 115H, Calcium Level 8.8, Corrected Calcium 9.7, Total Bilirubin 0.7, Aspartate Amino Transf (AST/SGOT) 13, Alanine Aminotransferase (ALT/SGPT) 11, Alkaline Phosphatase 106, Total Protein 6.1L, Albumin 2.9L 07/23/22 11:04: Glucometer 150H Microbiology 07/21/22 Gram Stain - Final, Resulted 07/21/22 Anaerobic Culture, Resulted Pending 07/21/22 Surgical Culture - Preliminary, Resulted Staphylococcus aureus 07/21/22 MRSA Screen - Final, Complete MRSA not isolated Assessment/Plan Assessment/Plan Assess & Plan/Chief Complaint 1. Sepsis -IV Zosyn 25mls/hr Q8H and Vancomycin 250mls/hr Q24H 2. Osteomyelitis and gangrene of 3rd digit on R foot -Had MRI confirming -Dr. Vela and Nicko will evaluate pt before proceeding with next steps in treatment plan 07/22: -successful amputation of 3 digit on R foot by Dr. Maharaj 3. NIDDM -takes metformin -Managed by Dr. Glover 4. Diabetic neuropathy 5. PAD -CT images from 12/16/21 demonstrated stenosis of varying degrees of the SFA and popliteal artery 6. HTN -controlled 7. CAD -cardiac cath 02/17/17 with stent placement due to near total occlusion of LAD 8. Ischemic Cardiomyopathy -Per cardiology notes, MPI on 04/16/20 showed inferoapical myocardial infarction with a small amt of tosin-infarct ischemia. Anteroapical akinesis. LVEF 30% 8. COPD -controlled 9. Severe MR -- S/P successful mitraclip placement by Dr. Vazquez at [facility] on 08/26/21 10. Chronic CHF -most recent ECHO showed LVEF 30-35%, grade 1 diastolic dysfunction, mild to mod MR, AoV thicknening (consistent with sclerosis), and PASP 20mmHg -MUGA on 05/21/22 was significant for ischemic cardiomyopathy with anteroapical akinesis and with left ventricular ejection fraction of 43%. 10. CKD IV 07/22: -moderate increase in BUN and Cr from yesterday, 30 and 2.2, but otherwise holding stable 11. Renal Artery Stenosis -CT images on 12/16/21 showed significant stenosis of L renal artery 12. H/o GI bleed -multiple hospitalizations requiring transfusions -Last EGD/colonoscopy 05/[address] Maharaj found moderate gastritis and mild chronic stage 1 external and internal hemorrhoids 13. Chronic Joint pain -managed by Dr. Glover 14. Carotid Artery Disease -noted on carotid u/s on 11/17/18 15. Gout -takes allopurinol at home and is continued in hospital 07/23: -L Knee gout flare >consult ortho for possible steroid injection >L Knee Xray >Start colchinine Plan: Consult Ortho for L Knee gout flare, possible steroid injection L knee XRAY Start Colchinine and continue allopurinol Continue IV abx Hold PT, will re-evaluate tomorrow due to knee pain limiting movement Pain medication prn Continue glycemic control Clinical Quality Measures Admission Status Admission Dx 1. Sepsis -IV Zosyn 25mls/hr Q8H and Vancomycin 250mls/hr Q24H 2. Osteomyelitis and gangrene of 3rd digit on R foot -Had MRI confirming -Dr. Vela and Nicko will evaluate pt before proceeding with next steps in treatment plan 3. NIDDM -takes metformin -Managed by Dr. Glover 4. Diabetic neuropathy 5. PAD -CT images from 12/16/21 demonstrated stenosis of varying degrees of the SFA and popliteal artery 6. HTN -controlled 7. CAD -cardiac cath 02/17/17 with stent placement due to near total occlusion of LAD 8. Ischemic Cardiomyopathy -Per cardiology notes, MPI on 04/16/20 showed inferoapical myocardial infarction with a small amt of tosin-infarct ischemia. Anteroapical akinesis. LVEF 30% 8. COPD -controlled 9. Severe MR -- S/P successful mitraclip placement by Dr. Vazquez at [facility] on 08/26/21 10. Chronic CHF -most recent ECHO showed LVEF 30-35%, grade 1 diastolic dysfunction, mild to mod MR, AoV thicknening (consistent with sclerosis), and PASP 20mmHg -MUGA on 05/21/22 was significant for ischemic cardiomyopathy with anteroapical akinesis and with left ventricular ejection fraction of 43%. 10. CKD IV 11. Renal Artery Stenosis -CT images on 12/16/21 showed significant stenosis of L renal artery 12. H/o GI bleed -multiple hospitalizations requiring transfusions -Last EGD/colonoscopy 05/[address] Maharaj found moderate gastritis and mild chronic stage 1 external and internal hemorrhoids 13. Chronic Joint pain -managed by Dr. Glover 14. Carotid Artery Disease -noted on carotid u/s on 11/17/18 Plan: Continue IV abx MRI was significant for osteomyelitis of 3 digit on R foot. Pt was seen by Dr. Vela and Dr. Maharaj. Pt will proceed with toe amputation but would like to postpone peripheral angiography with possible intervention d/t concerns about possible contrast nephropathy. NPO DVT/VTE Risk/Contraindication: Contraindications-Mechi: Other *list below* Other: lower leg cellulitis SUE GLOVER DO 07/24/22 0521: Subjective Subjective/Events-last exam Supportive care will continue Cant move due to left knee pain from gout Supervisory-Addendum Brief Verification & Attestation Participated in pt care: history, MDM, physical Personally performed: exam, history, MDM, supervision of care Care discussed with: Medical Student Procedures: n/a Results interpretation: Verified all documentation Verification and Attestation of Medical Student E/M Service A medical student performed and documented this service in my presence. I reviewed and verified all information documented by the medical student and made modifications to such information, when appropriate. I personally performed the physical exam and medical decision making. Sue Glover, Jul 24, 2022,05:20 HARIKA HARPER Jul 23, 2022 11:58 SUE GLOVER DO Jul 24, 2022 05:21
[2022-07-23] MEDS ORDERED: LIDOCAINE 1% INJ 10 ML VIAL INJ ONE (14:00)
[2022-07-23] MEDS ORDERED: BUPIVACAINE 0.25% 30 ML (SENSORCAINE) VIAL INJ ONE (14:00)
[2022-07-23] MEDS ORDERED: methylPREDNISolone 80 MG/ML (DEPO MEDROL) VIAL IM NR (14:00)
--- NOTE | 2022-07-23 14:16 | Occupational Therapy Eval ---
OT Evaluation-General/PLF Medical Diagnosis Admission Date Jul 20, 2022 at 16:28 Medical Diagnosis: right foot cellulitis Onset Date: Jul 20, 2022 Therapy Diagnosis Therapy Diagnosis: decreased ADL status Height/Weight Height (Feet): 5 Height (Inches): 11.00 Weight (Pounds): 195 Weight (Ounces): 11.2 Precautions Precautions/Isolations: Fall Prevention, Standard Precautions Referral Physician: Cristel Referral Reason: Evaluation/Treatment Medical History Pertinent Medical History: CAD, DM, Heart Failure, HTN, Neuropathy, Renal Insufficiency Additional Medical History gout Current History Direct admit secondary to right 3rd toe cellulitis (s/p right 3rd toe amputation) Social History Home: Single Level Current Living Status: Spouse ADL-Prior Level of Function SCALE: Activities may be completed with or without assistive devices. 9-Bihbmnjfof-xskbozn completes the activity by him/herself with no assistance from a helper. 5-Set-up or Clean-up Assistance-helper sets up or cleans up; patient completes activity. Wilcox assists only prior to or following the activity. 4-Supervision or Touching Assistance-helper provides verbal cues and/or touching/steadying and/or contact guard assistance as patient completes activity. Assistance may be provided throughout the activity or intermittently. 3-Partial/Moderate Assistance-helper does LESS THAN HALF the effort. Wilcox lifts, holds or supports trunk or limbs, but provides less than half the effort. 2-Substantial/Maximal Assistance-helper does MORE THAN HALF the effort. Wilcox lifts or holds trunk or limbs and provides more than half the effort. 9-Sqgmmrpvr-nhfkyf does ALL the effort. Patient does none of the effort to compl ete the activity. Or, the assistance of 2 or more helpers is required for the patient to complete the activity. If activity was not attempted, code reason: 7-Patient Refused. 9-Not Applicable-not attempted and the patient did not perform the activity before the current illness, exacerbation or injury. 10-Not Attempted due to Environmental Limitations-(lack of equipment, weather restraints, etc.). 88-Not Attempted due to Medical Conditions or Safety Concerns. ADL PLOF Comments Pt reports IND with ADLs and functional mobility at PLOF, has a tub/shower, GBs and SC. Self Care: Independent Functional Cognition: Independent DME/Equipment: Bath Chair, Tub/Shower OT Current Status Subjective Pt in bed, agreeable to OT evaluation. Mental Status/Objective Patient Orientation: Person, Place, Situation Attachments: IV Current Hand Dominance: Right Upper Extremity ROM WFL Upper Extremity Strength 5/5 BUEs ADL-Treatment Eating (QC): 6 On/Off Footwear (QC): 2 Other Treatments Pt in bed, provided information about PLOF and home set up. Pt attempted footwear, but unable to complete LLE gripper sock due to gout in leg. Pt participated in UE screen. Pt would likely require mod-max A with footwear and LE dressing at this time, mainly limited by pain in L leg. Pt transferred supine to sit EOB, min A. Pt able to manage LEs, OT provided assistance with trunk. Pt sat EOB to eat lunch, independent with meal. Post tx, pt in bed, call light in reach and all needs met. Education OT Patient Education: Correct positioning, Energy conservation, Modified ADL techniques, Progress toward Goal/Update tx plan, Purpose of tx/functional activities, Rehab process Teaching Recipient: Patient Teaching Methods: Discussion Response to Teaching: Verbalize Understanding OT Track Repair Person Goals Detention Goals Time Frame: Jul 31, 2022 Toileting Hygiene (QC): 4 Shower/Bathe Self (QC): 4 Upper Body Dressing (QC): 5 Lower Body Dressing (QC): 4 On/Off Footwear (QC): 4 1=Demonstrate adherence to instructed precautions during ADL tasks. 2=Patient will verbalize/demonstrate understanding of assistive devices/modific ations for ADL. 3=Patient will improve strength/tolerance for activity to enable patient to perform ADL's. OT Education/Plan Problem List/Assessment Assessment: Decreased Activ Tolerance, Impaired Funct Balance, Impaired I ADL's, Impaired Self-Care Skills Discharge Recommendations Plan/Recommendations: Continue POC Treatment Plan/Plan of Care Patient would benefit from OT for education, treatment and training to promote independence in ADL's, mobility, safety and/or upper extremity function for ADL's. Plan of Care: ADL Retraining, Functional Mobility, UE Funct Exercise/Act Treatment Duration: Jul 31, 2022 Frequency: 3 times per week (3-5 times per week) Rehab Potential: Fair Time/GCodes Start Time: 13:38 Stop Time: 13:53 Total Time Billed (hr/min): 15 Billed Treatment Time 1, EVM CRUMPACKER,HELEN OT Jul 23, 2022 14:16
--- NOTE | 2022-07-23 14:52 | Progress Note - Cardiology ---
Cardiology SOAP Progress Note Subjective: No cp or palp or syncope No shortness of breath No L foot discomfort at time of exam Does report R ankle and toe pain and ascribes it to gout No n/v/d Objective: I&O/Vital Signs 07/23/22 07/23/22 07/23/22 07/23/22 03:17 07:24 07:50 08:07 Temp 36.5 37.5 Pulse 80 82 73 Resp 18 18 B/P (MAP) 136/67 (90) 169/73 (105) Pulse Ox 97 95 95 O2 Delivery Room Air Room Air Room Air O2 Flow Rate 0.00 07/23/22 07/23/22 07/23/22 08:10 11:07 11:17 Temp 37.5 36.8 Pulse 82 84 Resp 18 B/P (MAP) 135/83 (100) Pulse Ox 95 94 94 O2 Delivery Room Air Room Air O2 Flow Rate 0.00 FiO2 21 07/23/22 00:00 Intake Total 1710 ml Balance 1710 ml Weight (Pounds): 195 Weight (Ounces): 11.2 Weight (Calculated Kilograms): 88.809605 Constitutional: AAO x 3, well-developed, well-nourished Respiratory: No accessory muscle use, No respiratory distress; chest expansion is symmetric, chest is bilaterally symmetric, lungs clear to auscultation Cardiovascular: regular rate-rhythm; No JVD; S1 and S2 Gastrointestional: No tender; soft, round, audible bowel sounds Extremities: no lower extremity edema bilateral, wound (S/P right foot, third digit ampuation - dressing in place) Neurologic/Psychiatric: other (moves all limbs equally) Skin: other (see above) Results/Procedures: Labs Laboratory Tests 07/22/22 15:22: Glucometer 163H 07/22/22 16:40: Vancomycin Level Trough 15.0 07/22/22 20:20: Glucometer 140H 07/23/22 05:25: White Blood Count 11.0, Red Blood Count 3.52L, Hemoglobin 10.6L, Hematocrit 33L, Mean Corpuscular Volume 93, Mean Corpuscular Hemoglobin 30, Mean Corpuscular Hemoglobin Concent 32, Red Cell Distribution Width 13.7, Platelet Count 237, Mean Platelet Volume 11.1, Immature Granulocyte % (Auto) 1, Neutrophils (%) (Auto) 78H, Lymphocytes (%) (Auto) 9L, Monocytes (%) (Auto) 10, Eosinophils (%) (Auto) 1, Basophils (%) (Auto) 1, Neutrophils # (Auto) 8.7H, Lymphocytes # (Auto) 1.0, Monocytes # (Auto) 1.1H, Eosinophils # (Auto) 0.2, Basophils # (Auto) 0.1, Immature Granulocyte # (Auto) 0.1, Sodium Level 141, Potassium Level 4.0, Chloride Level 110H, Carbon Dioxide Level 19L, Anion Gap 12, Blood Urea Nitrogen 24H, Creatinine 1.86H, Estimat Glomerular Filtration Rate 38, BUN/Creatinine Ratio 13, Glucose Level 115H, Calcium Level 8.8, Corrected Calcium 9.7, Total Bilirubin 0.7, Aspartate Amino Transf (AST/SGOT) 13, Alanine Aminotransferase (ALT/SGPT) 11, Alkaline Phosphatase 106, Total Protein 6.1L, Albumin 2.9L 07/23/22 11:04: Glucometer 150H Microbiology 07/21/22 Gram Stain - Final, Resulted 07/21/22 Anaerobic Culture - Preliminary, Resulted No anaerobes isolated 07/21/22 Surgical Culture - Final, Resulted Staphylococcus aureus 07/21/22 MRSA Screen - Final, Complete MRSA not isolated Laboratory Tests 07/22/22 04:50 07/23/22 05:25 A/P: Assessment: 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 Maharaj and Dr. aFm CAD and ischemic cardiomyopathy: - Card cath of 02/09/17: near-total occlusion of LAD treated with overlapping Resolute 2.25x30 and 2.5x14 stents and both postdilated with a 2.75 mm balloon to 2.9 mm diameter; LCX and RCA had relatively mod disease; elevated LVEDP - MPI of April 16, 2020 showed inferoapical myocardial infarction with a small amt of tosin-infarct ischemia. Anteroapical akinesis. LVEF 30%. Chronic systolic and diastolic CHF: - due to ischemic cardiomyopathy and severe mitral regurg - Echo 02/17/21: LVEF 30-35%, mod cardiomegaly (LV, RA, LA), mod to sev MR, AoV sclerosis w/o stenosis, mild MR, PASP 45-50 mmHg - Echocardiogram of 12-25-21 showed mod concentric hypertrophy. LVEF 25-30%. Akinesis of the anterior myocardium. LA is mod dilated. RA is mildly dilated. Mod MR, directed eccentrically. AoV thickening, consistent with sclerosis with mild AoR. A trivial free flowing pericardial effusion is identified. - Echo for 02/25/22 (as part of participation in MitraClip trial at [facility]): LVEF 37%, [place] device with mild residual MR, severe LV dilatation, global hypo, apical akinesis - Echocardiogram of 03-19-22 showed LVEF 30-35%. Akinesis of the apical myocardium. Grade 1 diastolic dysfunction. Mild to mod MR. AoV thickening, consistent with sclerosis. Trivial regurg. PASP 20 mmHg - MUGA 05-21-22 showed: Ischemic cardiomyopathy with anteroapical akinesis and with left ventricular ejection fraction of 43%. Severe MR: - Echocardiogram from 02-17-21 showed mod to severe MR - Referred to Dr. Rodriguez per pt request - advised he keep referral to [facility] - Referred to [facility]: Dr. Garg at [facility] has offered a minimally invasive mitral valve replacement, but the pt request an even less invasive approach and desires a mitraclip - S/P successful mitraclip placement by Dr. Vazquez at [facility] on 08-26-21 Hypertension: - controlled H/o GI bleed : - May 2018 hosp with GI bleed requiring multiple transfusions. - Endoscopy by Dr Maharaj in early May 2018: reflux esophagitis (grade 2), no HH, moderate gastritis with small antral erosion.mild chronic stage 1 ext and int hemorrhoids. - Long hosp (April and May 2018) with diffuse myopathy and weakness following GI bleed and blood transfusions. Thrombocytosis during hosp of May 2018, most likely reactive, followed and treated by Dr Maher Chronic joint pains of unclear etiology: - gout vs RMSF vs statins. DM II: - followed by PCP H/o tobaccoism: - Quit tobacco use in or around 1999 CKD IV PFT of March 31, 2017: spirometry is WNL Carotid dz: Mild carotid arterial disease on carotid u/s of 11/17/18 No AAA on AAA screening scan of 11/17/18 PAD and renal artery stenosis - CTA images of 12-16-2021 (following abnormal segmentals) demonstrate diffuse atherosclerotic plaquing of the aorta without evidence of aneurysm. There is a significant left renal artery stenosis. There are stenoses of the origins of the profunda femoris arteries on the right side. There is moderate stenosis in the distal SFA on the right side and high-grade stenosis of the junction of the right SFA and popliteal artery. There is two vessel runoff on the right side. On the left side, there is high-grade stenosis of the lower SFA with two vessel runoff distally. Plan: * Complex management * Conservative management of PAD per patient request (see note of 07/21/22) * S/P right third digit amputation by Dr. Maharaj * Monitor lab * Replace electrolytes as indicated * Gout managed by RHYS Dixon MD FACP FAC CCDS Jul 23, 2022 14:52
--- NOTE | 2022-07-23 15:33 | Progress Note ---
Subjective Date Seen by a Provider: Jul 23, 2022 Time Seen by a Provider: 13:00 Subjective/Events-last exam doing well. still weak but ambulating better. no foot pain. no fever/chills. Focused Exam Lactate Level 07/20/22 17:50: Lactic Acid Level 1.19 Objective Exam Vital Signs Date Time Temp Pulse Resp B/P (MAP) Pulse Ox O2 Delivery O2 Flow Rate FiO2 07/23/22 13:05 65 07/23/22 11:17 94 Room Air 0.00 07/23/22 11:07 36.8 84 18 135/83 (100) 94 Room Air 07/23/22 08:10 37.5 82 95 21 07/23/22 08:07 95 Room Air 0.00 07/23/22 07:50 73 07/23/22 07:24 37.5 82 18 169/73 (105) 95 Room Air 07/23/22 03:17 36.5 80 18 136/67 (90) 97 Room Air 07/23/22 01:00 67 07/22/22 23:18 36.4 84 18 112/56 (74) 94 Room Air 07/22/22 20:32 37.4 07/22/22 20:05 Room Air 07/22/22 20:02 38.0 07/22/22 19:19 37.9 93 18 144/65 (91) 96 Room Air 07/22/22 19:00 66 07/22/22 17:48 94 Room Air 07/22/22 15:36 Room Air I & O 07/23/22 07:00 Intake Total 2910 ml Balance 2910 ml Capillary Refill : General Appearance: No Apparent Distress HEENT: PERRL/EOMI Neck: Full Range of Motion Respiratory: Chest Non Tender, Lungs Clear Cardiovascular: Regular Rate, Rhythm Gastrointestinal: normal bowel sounds, non tender, soft Extremity: Normal Capillary Refill Neurologic/Psychiatric: Alert, Oriented x3 Skin: Normal Color Lymphatic: No Adenopathy Results Lab Laboratory Tests 07/22/22 16:40: Vancomycin Level Trough 15.0 07/22/22 20:20: Glucometer 140H 07/23/22 05:25: White Blood Count 11.0, Red Blood Count 3.52L, Hemoglobin 10.6L, Hematocrit 33L, Mean Corpuscular Volume 93, Mean Corpuscular Hemoglobin 30, Mean Corpuscular Hemoglobin Concent 32, Red Cell Distribution Width 13.7, Platelet Count 237, Mean Platelet Volume 11.1, Immature Granulocyte % (Auto) 1, Neutrophils (%) (Auto) 78H, Lymphocytes (%) (Auto) 9L, Monocytes (%) (Auto) 10, Eosinophils (%) (Auto) 1, Basophils (%) (Auto) 1, Neutrophils # (Auto) 8.7H, Lymphocytes # (Auto) 1.0, Monocytes # (Auto) 1.1H, Eosinophils # (Auto) 0.2, Basophils # (Auto) 0.1, Immature Granulocyte # (Auto) 0.1, Sodium Level 141, Potassium Level 4.0, Chloride Level 110H, Carbon Dioxide Level 19L, Anion Gap 12, Blood Urea Nitrogen 24H, Creatinine 1.86H, Estimat Glomerular Filtration Rate 38, BUN/Creatinine Ratio 13, Glucose Level 115H, Calcium Level 8.8, Corrected Calcium 9.7, Total Bilirubin 0.7, Aspartate Amino Transf (AST/SGOT) 13, Alanine Aminotransferase (ALT/SGPT) 11, Alkaline Phosphatase 106, Total Protein 6.1L, Albumin 2.9L 07/23/22 11:04: Glucometer 150H Microbiology 07/21/22 Gram Stain - Final, Resulted 07/21/22 Anaerobic Culture - Preliminary, Resulted No anaerobes isolated 07/21/22 Surgical Culture - Final, Resulted Staphylococcus aureus 07/21/22 MRSA Screen - Final, Complete MRSA not isolated Assessment/Plan Assessment/Plan Assess & Plan/Chief Complaint osteomyelitis right 3rd toe s/p amputation phalanx. ambulate. cont IV abx. cont tight glycemic control. cont strength training and functional capacity before home. Clinical Quality Measures DVT/VTE Risk/Contraindication: Contraindications-Mechi: Other *list below* Other: lower leg cellulitis MARYLU DELGADO MD Jul 23, 2022 15:33
[2022-07-23 16:16] VITALS: BP 159/74
--- NOTE | 2022-07-23 17:13 | Diagnostic Imaging Report ---
Indication: Left knee pain AP, oblique, and lateral views of the left knee are obtained. No fracture or acute bony abnormality seen. There is chronic irregularity of proximal fibula which probably is an old injury. There is mild patellofemoral spurring. There is no definite joint effusion. Impression: Mild chronic findings as described above with no acute appearing abnormality. Dictated by: Dictated on workstation # [id number]
[2022-07-23] MEDS: VANCOMYCIN 1 GM/NS 250 ML IVPB IV SCH ×2 (17:29)
[2022-07-23] MEDS: TAMSULOSIN 0.4 MG (FLOMAX) CAP PO SCH (19:57)
[2022-07-23] MEDS: ZOLPIDEM 5 MG (AMBIEN) TAB PO SCH (20:02)
[2022-07-23] MEDS: meTOproloL SUCCINATE 50 MG (TOPROL XL) TAB PO SCH (20:03)
[2022-07-23] MEDS: FERROUS SULF 325 MG (IRON) TAB PO SCH (20:03)
[2022-07-23] MEDS: ACETAMINOPHEN 325 MG TABLET PO PRN (20:03)
[2022-07-23] MEDS: BETHANECHOL 25 MG (URECHOLINE) TAB PO SCH (20:03)
[2022-07-23 20:04] VITALS: BP 148/69
[2022-07-24 00:01] VITALS: BP 140/82
[2022-07-24] MEDS: COLCHICINE 0.6 MG (COLCRYS) TABLET PO SCH ×3 (00:03→09:32)
[2022-07-24 03:52] VITALS: BP 152/76
[2022-07-24 04:14] LABS: BASOPHILS % (AUTO) 0 % (0-10); EOSINOPHILS % (AUTO) 0 % (0-10); HEMATOCRIT 35 % (40-54); HEMOGLOBIN 11.3 g/dL (13.3-17.7); LYMPHOCYTES # (AUTO) 0.5 10^3/uL (1.0-4.0); LYMPHOCYTES % (AUTO) 4 % (12-44); MEAN CORPUSCULAR HEMOGLOBIN 30 pg (25-34); MEAN CORPUSCULAR HGB CONC 32 g/dL (32-36); MEAN CORPUSCULAR VOLUME 92 fL (80-99); MEAN PLATELET VOLUME 11.3 fL (9.0-12.2); MONOCYTES # (AUTO) 0.2 10^3/uL (0.0-1.0); MONOCYTES % (AUTO) 2 % (0-12); NEUTROPHILS % (AUTO) 93 % (42-75); PLATELET COUNT 293 10^3/uL (130-400); WHITE BLOOD COUNT 12.9 10^3/uL (4.3-11.0)
[2022-07-24 04:49] LABS: ALBUMIN 3.2 GM/DL (3.2-4.5)
[2022-07-24 04:50] LABS: POTASSIUM 4.5 MMOL/L (3.6-5.0)
[2022-07-24 04:51] LABS: CALCIUM 9.2 MG/DL (8.5-10.1)
[2022-07-24 04:52] LABS: TOTAL PROTEIN 6.6 GM/DL (6.4-8.2)
[2022-07-24 04:54] LABS: BILIRUBIN,TOTAL 0.6 MG/DL (0.1-1.0)
[2022-07-24 04:56] LABS: CREATININE SERUM 1.91 MG/DL (0.60-1.30)
[2022-07-24] MEDS: inSUlin ASPART (NovoLOG) 1 UNIT/0.01 ML (CHARGE PER UNIT) SC SCH (05:26)
[2022-07-24] MEDS: PANTOPRAZOLE 40 MG (PROTONIX) TAB PO SCH ×2 (05:26→09:34)
[2022-07-24 07:47] VITALS: BP 160/73
[2022-07-24] MEDS: RT-ALBUTEROL/IPRATROPIUM 3 ML (DUONEB) VIAL INH SCH ×2 (07:49→10:47)
[2022-07-24] MEDS ORDERED: meTOproloL SUCCINATE 50 MG (TOPROL XL) TAB PO SCH (09:00)
--- NOTE | 2022-07-24 09:02 | Progress Note - Cardiology ---
Cardiology SOAP Progress Note Objective: I&O/Vital Signs 07/24/22 07/24/22 07/24/22 07/24/22 00:01 01:12 03:52 07:00 Temp 36.4 36.2 Pulse 73 84 79 72 Resp 20 18 B/P (MAP) 140/82 (101) 152/76 (101) Pulse Ox 97 96 O2 Delivery Room Air Room Air 07/24/22 07/24/22 07:47 07:50 Temp 36.1 Pulse 72 Resp 18 B/P (MAP) 160/73 (102) Pulse Ox 94 94 O2 Delivery Room Air Room Air 07/24/22 00:00 Intake Total 1510 ml Output Total 740 ml Balance 770 ml Weight (Pounds): 195 Weight (Ounces): 11.2 Weight (Calculated Kilograms): 88.989234 Constitutional: AAO x 3, well-developed, well-nourished Respiratory: No accessory muscle use, No respiratory distress; chest expansion is symmetric, chest is bilaterally symmetric, lungs clear to auscultation Cardiovascular: regular rate-rhythm; No JVD; S1 and S2 Gastrointestional: No tender; soft, round, audible bowel sounds Extremities: no lower extremity edema bilateral, wound (S/P right foot, third digit ampuation - dressing in place) Neurologic/Psychiatric: other (moves all limbs equally) Skin: other (see above) Results/Procedures: Labs Laboratory Tests 07/23/22 11:04: Glucometer 150H 07/23/22 16:13: Glucometer 135H 07/23/22 20:54: Glucometer 216H 07/24/22 04:00: White Blood Count 12.9H, Red Blood Count 3.80L, Hemoglobin 11.3L, Hematocrit 35L , Mean Corpuscular Volume 92, Mean Corpuscular Hemoglobin 30, Mean Corpuscular Hemoglobin Concent 32, Red Cell Distribution Width 13.7, Platelet Count 293, Mean Platelet Volume 11.3, Immature Granulocyte % (Auto) 1, Neutrophils (%) (Auto) 93H, Lymphocytes (%) (Auto) 4L, Monocytes (%) (Auto) 2, Eosinophils (%) (Auto) 0, Basophils (%) (Auto) 0, Neutrophils # (Auto) 12.0H, Lymphocytes # (Auto) 0.5L, Monocytes # (Auto) 0.2, Eosinophils # (Auto) 0.0, Basophils # (Auto) 0.0, Immature Granulocyte # (Auto) 0.1, Sodium Level 143, Potassium Level 4.5, Chloride Level 111H, Carbon Dioxide Level 17L, Anion Gap 15H, Blood Urea Nitrogen 26H, Creatinine 1.91H, Estimat Glomerular Filtration Rate 37, BUN/Creatinine Ratio 14, Glucose Level 257H, Calcium Level 9.2, Corrected Calcium 9.8, Total Bilirubin 0.6, Aspartate Amino Transf (AST/SGOT) 14, Alanine Aminotransferase (ALT/SGPT) 12, Alkaline Phosphatase 121, Total Protein 6.6, Albumin 3.2 Microbiology 07/21/22 Gram Stain - Final, Resulted 07/21/22 Anaerobic Culture - Preliminary, Resulted No anaerobes isolated 07/21/22 Surgical Culture - Final, Resulted Staphylococcus aureus 07/21/22 MRSA Screen - Final, Complete MRSA not isolated Laboratory Tests 07/23/22 05:25 07/24/22 04:00 A/P: Assessment: 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 Maharaj and Dr. Fam CAD and ischemic cardiomyopathy: - Card cath of 02/09/17: near-total occlusion of LAD treated with overlapping Resolute 2.25x30 and 2.5x14 stents and both postdilated with a 2.75 mm balloon to 2.9 mm diameter; LCX and RCA had relatively mod disease; elevated LVEDP - MPI of April 16, 2020 showed inferoapical myocardial infarction with a small a mt of tosin-infarct ischemia. Anteroapical akinesis. LVEF 30%. Chronic systolic and diastolic CHF: - due to ischemic cardiomyopathy and severe mitral regurg - Echo 02/17/21: LVEF 30-35%, mod cardiomegaly (LV, RA, LA), mod to sev MR, AoV sclerosis w/o stenosis, mild MR, PASP 45-50 mmHg - Echocardiogram of 12-25-21 showed mod concentric hypertrophy. LVEF 25-30%. Akinesis of the anterior myocardium. LA is mod dilated. RA is mildly dilated. Mod MR, directed eccentrically. AoV thickening, consistent with sclerosis with mild AoR. A trivial free flowing pericardial effusion is identified. - Echo for 02/25/22 (as part of participation in MitraClip trial at [facility]): LVEF 37%, [place] device with mild residual MR, severe LV dilatation, global hypo, apical akinesis - Echocardiogram of 03-19-22 showed LVEF 30-35%. Akinesis of the apical myocardium. Grade 1 diastolic dysfunction. Mild to mod MR. AoV thickening, consistent with sclerosis. Trivial regurg. PASP 20 mmHg - MUGA 05-21-22 showed: Ischemic cardiomyopathy with anteroapical akinesis and with left ventricular ejection fraction of 43%. Severe MR: - Echocardiogram from 02-17-21 showed mod to severe MR - Referred to Dr. Rodriguez per pt request - advised he keep referral to [facility] - Referred to [facility]: Dr. Garg at [facility] has offered a minimally invasive mitral valve replacement, but the pt request an even less invasive approach and desires a mitraclip - S/P successful mitraclip placement by Dr. Vazquez at [facility] on 08-26-21 Hypertension: H/o GI bleed : - May 2018 hosp with GI bleed requiring multiple transfusions. - Endoscopy by Dr Maharaj in early May 2018: reflux esophagitis (grade 2), no HH, moderate gastritis with small antral erosion.mild chronic stage 1 ext and int hemorrhoids. - Long hosp (April and May 2018) with diffuse myopathy and weakness following GI bleed and blood transfusions. Thrombocytosis during hosp of May 2018, most likely reactive, followed and treated by Dr Maher Chronic joint pains of unclear etiology: - gout vs RMSF vs statins. DM II: - followed by PCP H/o tobaccoism: - Quit tobacco use in or around 1999 CKD IV PFT of March 31, 2017: spirometry is WNL Carotid dz: Mild carotid arterial disease on carotid u/s of 11/17/18 No AAA on AAA screening scan of 11/17/18 PAD and renal artery stenosis - CTA images of 12-16-2021 (following abnormal segmentals) demonstrate diffuse atherosclerotic plaquing of the aorta without evidence of aneurysm. There is a significant left renal artery stenosis. There are stenoses of the origins of the profunda femoris arteries on the right side. There is moderate stenosis in the distal SFA on the right side and high-grade stenosis of the junction of the right SFA and popliteal artery. There is two vessel runoff on the right side. On the left side, there is high-grade stenosis of the lower SFA with two vessel runoff distally. Plan: * Complex management * Conservative management of PAD per patient request (see note of 07/21/22) * S/P right third digit amputation by Dr. Maharaj * BP not well controlled - increase BB - adjust regimen as indicated/tolerated * Monitor lab * Replace electrolytes as indicated * Gout managed by VIVIAN Lamb Jul 24, 2022 09:02
[2022-07-24] MEDS: ALLOPURINOL 100 MG (ZYLOPRIM) TAB PO SCH (09:33)
[2022-07-24] MEDS: oxyCODONE/APAP 5/325MG (PERCOCET 5) TABLET PO SCH (09:33)
[2022-07-24] MEDS: SPIRONOLACTONE 25 MG (ALDACTONE) TAB PO SCH (09:33)
[2022-07-24] MEDS: SACUBITRIL/VALSARTAN 24/26 MG (ENTRESTO) TABLET PO SCH (09:33)
[2022-07-24] MEDS: DOCUSATE SODIUM 100 MG (COLACE) CAP PO SCH (09:42)
[2022-07-24] MEDS: SENNOSIDES 8.6 MG (SENOKOT) TAB PO SCH (09:43)
--- NOTE | 2022-07-24 10:20 | Discharge Summary ---
Diagnosis/Chief Complaint Date of Admission Jul 20, 2022 at 16:28 Date of Discharge Discharge Date: Jul 24, 2022 Discharge Diagnosis Assess & Plan/Chief Complaint 1. Sepsis -IV Zosyn 25mls/hr Q8H and Vancomycin 250mls/hr Q24H 2. Osteomyelitis and gangrene of 3rd digit on R foot -Had MRI confirming -Dr. Vela and Nicko will evaluate pt before proceeding with next steps in treatment plan 07/22: -successful amputation of 3 digit on R foot by Dr. Maharaj 3. NIDDM -takes metformin -Managed by Dr. Glover 4. Diabetic neuropathy 5. PAD -CT images from 12/16/21 demonstrated stenosis of varying degrees of the SFA and popliteal artery 6. HTN -controlled 7. CAD -cardiac cath 02/17/17 with stent placement due to near total occlusion of LAD 8. Ischemic Cardiomyopathy -Per cardiology notes, MPI on 04/16/20 showed inferoapical myocardial infarction with a small amt of tosin-infarct ischemia. Anteroapical akinesis. LVEF 30% 8. COPD -controlled 9. Severe MR -- S/P successful mitraclip placement by Dr. Vazquez at [facility] on 10. Chronic CHF -most recent ECHO showed LVEF 30-35%, grade 1 diastolic dysfunction, mild to mod MR, AoV thicknening (consistent with sclerosis), and PASP 20mmHg -MUGA on 05/21/22 was significant for ischemic cardiomyopathy with anteroapical akinesis and with left ventricular ejection fraction of 43%. 10. CKD IV 07/22: -moderate increase in BUN and Cr from yesterday, 30 and 2.2, but otherwise holding stable 11. Renal Artery Stenosis -CT images on 12/16/21 showed significant stenosis of L renal artery 12. H/o GI bleed -multiple hospitalizations requiring transfusions -Last EGD/colonoscopy 05/[address] Maharaj found moderate gastritis and mild chronic stage 1 external and internal hemorrhoids 13. Chronic Joint pain -managed by Dr. Glover 14. Carotid Artery Disease -noted on carotid u/s on 11/17/18 15. Gout -takes allopurinol at home and is continued in hospital 07/23: -L Knee gout flare >consult ortho for possible steroid injection >L Knee Xray >Start colchinine Plan: Consult Ortho for L Knee gout flare, possible steroid injection L knee XRAY Start Colchinine and continue allopurinol Continue IV abx Hold PT, will re-evaluate tomorrow due to knee pain limiting movement Pain medication prn Continue glycemic control Clinical Quality Measures Admission Status Admission Dx 1. Sepsis -IV Zosyn 25mls/hr Q8H and Vancomycin 250mls/hr Q24H 2. Osteomyelitis and gangrene of 3rd digit on R foot -Had MRI confirming -Dr. Vela and Nicko will evaluate pt before proceeding with next steps in treatment plan 3. NIDDM -takes metformin -Managed by Dr. Glover 4. Diabetic neuropathy 5. PAD -CT images from 12/16/21 demonstrated stenosis of varying degrees of the SFA and popliteal artery 6. HTN -controlled 7. CAD -cardiac cath 02/17/17 with stent placement due to near total occlusion of LAD 8. Ischemic Cardiomyopathy -Per cardiology notes, MPI on 04/16/20 showed inferoapical myocardial infarction with a small amt of tosin-infarct ischemia. Anteroapical akinesis. LVEF 30% 8. COPD -controlled 9. Severe MR -- S/P successful mitraclip placement by Dr. Vazquez at [facility] on 08/26/21 10. Chronic CHF -most recent ECHO showed LVEF 30-35%, grade 1 diastolic dysfunction, mild to mod MR, AoV thicknening (consistent with sclerosis), and PASP 20mmHg -MUGA on 05/21/22 was significant for ischemic cardiomyopathy with anteroapical akinesis and with left ventricular ejection fraction of 43%. 10. CKD IV 11. Renal Artery Stenosis -CT images on 12/16/21 showed significant stenosis of L renal artery 12. H/o GI bleed -multiple hospitalizations requiring transfusions -Last EGD/colonoscopy 05/[address] Maharaj found moderate gastritis and mild chronic stage 1 external and internal hemorrhoids 13. Chronic Joint pain -managed by Dr. Glover 14. Carotid Artery Disease -noted on carotid u/s on 11/17/18 Plan: Continue IV abx MRI was significant for osteomyelitis of 3 digit on R foot. Pt was seen by Dr. Vela and Dr. Maharaj. Pt will proceed with toe amputation but would like to postpone peripheral angiography with possible intervention d/t concerns about possible contrast nephropathy. NPO Discharge Summary Discharge Physical Examination Allergies: Coded Allergies: No Known Drug Allergies (Unverified , 01/25/17) Vitals & I&Os Vital Signs Date Time Temp Pulse Resp B/P (MAP) Pulse Ox O2 Delivery O2 Flow Rate FiO2 07/24/22 10:47 94 Room Air 07/24/22 07:47 36.1 72 18 160/73 (102) 07/23/22 15:29 0.00 07/23/22 08:10 21 General Appearance: Alert, Oriented X3, Cooperative Respiratory: Clear to Auscultation Cardiovascular: Regular Rate Psych/Mental Status: Mental Status NL Hospital Course Was the Problem List Reviewed?: Yes Subjective: Today, pt experienced a choking episode resulting in his throwing up while eating breakfast. Pt states that he felt like a piece of sausage got stuck in his throat causing him to vomit. Pt recovered and was able to drink following the episode Pt states that he has never experienced anything similar before. Otherwise, pt is sitting on the side of the bed comfortably. Pt received an injection of methyprednisolone and was started on Colchinine yesterday. Pt states that his L knee is still painful but that it has improved from yesterday. Pt denies any pain in his R foot. Pt has been able to ambulate to bathroom. Pt continues to void and have BMs. Pt denies any current nausea, CP, SOA, abd pain, or diarrhea. Pt has been moved down to inpatient therapy. Hospital Course: 42yo M with h/o NIDDM, PAD, CAD, CKD, peripheral neuropathy, and HTN was referred to keily Jackson from Dr. Glover's office yesterday due to right foot cellulitis that has been worsening for the past week. 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 Pt did not seek medical attention at that time. Pt states that one week ago, the pain in his foot worsened and started to radiate up his leg. Yesterday, pt states that he became febrile, having a max temperature of 102F at home. This prompted him to be seen by Dr. Glover who referred him to the hospital to be admitted. Workup found an elevated WBC. Pt was started on IV Zosyn and Vancomycin. Pt had a foot XRAY on 07/20 that showed no fractures or osteomyelitis. Surgery was consulted and Dr. Maharaj saw the pt on 07/20.MRI of R foot was ordered and was significant for R 3rd digit gangrene and osteomyelitis. On 07/21, pt had a successful amputation of the 3rd digit on the right foot by Nicko. Following, amputation pt's pain improved significantly. On 07/23, pt started to experience L medial knee pain that was exacerbated with movement. Pt was unable to do PT that morning due to pain. Pt stated that pain was similiar to gout flares he's had in the past, for which he takes allopurinol daily. Pt was treated for an acute gout flare and received an injection of methylprednisolone and started on Colchinine. Pt also had an XRAY of the left knee that showed mild chronic changes but was negative for joint effusion. Today, pt experienced a choking episode resulting in his throwing up while eating breakfast. Pt states that he felt like a piece of sausage got stuck in his throat causing him to vomit. Pt recovered and was able to drink following the episode. Otherwise, pt states that his L knee pain has improved from yesterday following the injection and colchinine. Pt denies any pain in his R foot. Pt has no other complaints. Pt was moved down to inpatient therapy today. [facility] (last 24 hrs) Laboratory Tests 07/20/22 17:50: White Blood Count 17.6H, Red Blood Count 4.38, Hemoglobin 13.2L, Hematocrit 40, Mean Corpuscular Volume 92, Mean Corpuscular Hemoglobin 30, Mean Corpuscular Hemoglobin Concent 33, Red Cell Distribution Width 13.4, Platelet Count 240, Mean Platelet Volume 11.4, Immature Granulocyte % (Auto) 1, Neutrophils (%) (Auto) 84H, Lymphocytes (%) (Auto) 4L, Monocytes (%) (Auto) 11, Eosinophils (%) (Auto) 0, Basophils (%) (Auto) 0, Neutrophils # (Auto) 14.8H, Lymphocytes # (Auto) 0.7L, Monocytes # (Auto) 1.9H, Eosinophils # (Auto) 0.0, Basophils # (Auto) 0.1, Immature Granulocyte # (Auto) 0.1, Neutrophils % (Manual) 85, Lymphocytes % (Manual) 3, Monocytes % (Manual) 11, Basophils % (Manual) 1, Blood Morphology Comment NORMAL, Sodium Level 134L, Potassium Level 4.8, Chloride Level 99, Carbon Dioxide Level 24, Anion Gap 11, Blood Urea Nitrogen 24H, Creatinine 2.13H, Estimat Glomerular Filtration Rate 32, BUN/Creatinine Ratio 11, Glucose Level 269H, Lactic Acid Level 1.19, Calcium Level 9.6, Corrected Calcium 9.6, Total Bilirubin 0.8, Aspartate Amino Transf (AST/SGOT) 13, Alanine Aminotransferase (ALT/SGPT) 8, Alkaline Phosphatase 114, Total Protein 7.3, Albumin 4.0, Procalcitonin 0.15H 07/20/22 20:49: Glucometer 200H 07/21/22 05:32: Glucometer 119H 07/21/22 11:00: White Blood Count 13.8H, Red Blood Count 3.88L, Hemoglobin 11.6L, Hematocrit 36L , Mean Corpuscular Volume 92, Mean Corpuscular Hemoglobin 30, Mean Corpuscular Hemoglobin Concent 33, Red Cell Distribution Width 13.6, Platelet Count 207, Mean Platelet Volume 11.2, Immature Granulocyte % (Auto) 0, Neutrophils (%) (Auto) 83H, Lymphocytes (%) (Auto) 5L, Monocytes (%) (Auto) 11, Eosinophils (%) (Auto) 0, Basophils (%) (Auto) 0, Neutrophils # (Auto) 11.5H, Lymphocytes # (Auto) 0.8L, Monocytes # (Auto) 1.4H, Eosinophils # (Auto) 0.0, Basophils # (Aut o) 0.1, Immature Granulocyte # (Auto) 0.1, Sodium Level 137, Potassium Level 3.9, Chloride Level 103, Carbon Dioxide Level 21, Anion Gap 13, Blood Urea Nitrogen 25H, Creatinine 2.00H, Estimat Glomerular Filtration Rate 35, BUN/Creatinine Ratio 13, Glucose Level 127H, Calcium Level 8.6, Corrected Calcium 9.2, Total Bilirubin 0.9, Aspartate Amino Transf (AST/SGOT) 9, Alanine Aminotransferase (ALT/SGPT) 7, Alkaline Phosphatase 90, Total Protein 6.2L, Albumin 3.3 07/21/22 15:53: Glucometer 143H 07/21/22 20:41: Glucometer 217H 07/22/22 04:50: White Blood Count 13.4H, Red Blood Count 3.51L, Hemoglobin 10.6L, Hematocrit 33L , Mean Corpuscular Volume 93, Mean Corpuscular Hemoglobin 30, Mean Corpuscular Hemoglobin Concent 33, Red Cell Distribution Width 13.7, Platelet Count 227, Mean Platelet Volume 11.2, Immature Granulocyte % (Auto) 0, Neutrophils (%) (Auto) 79H, Lymphocytes (%) (Auto) 8L, Monocytes (%) (Auto) 12, Eosinophils (%) (Auto) 0, Basophils (%) (Auto) 0, Neutrophils # (Auto) 10.6H, Lymphocytes # (Auto) 1.1, Monocytes # (Auto) 1.6H, Eosinophils # (Auto) 0.0, Basophils # (Auto) 0.1, Immature Granulocyte # (Auto) 0.1, Sodium Level 140, Potassium Level 3.9, Chloride Level 107, Carbon Dioxide Level 20L, Anion Gap 13, Blood Urea Nitrogen 30H, Creatinine 2.20H, Estimat Glomerular Filtration Rate 31, BUN/Creatinine Ratio 14, Glucose Level 151H, Calcium Level 8.5, Corrected Calcium 9.3, Total Bilirubin 0.6, Aspartate Amino Transf (AST/SGOT) 13, Alanine Aminotransferase (ALT/SGPT) 12, Alkaline Phosphatase 102, Total Protein 5.7L, Albumin 3.0L 07/22/22 11:10: Glucometer 206H 07/22/22 15:22: Glucometer 163H 07/22/22 16:40: Vancomycin Level Trough 15.0 07/22/22 20:20: Glucometer 140H 07/23/22 05:25: White Blood Count 11.0, Red Blood Count 3.52L, Hemoglobin 10.6L, Hematocrit 33L, Mean Corpuscular Volume 93, Mean Corpuscular Hemoglobin 30, Mean Corpuscular Hemoglobin Concent 32, Red Cell Distribution Width 13.7, Platelet Count 237, Mean Platelet Volume 11.1, Immature Granulocyte % (Auto) 1, Neutrophils (%) (Auto) 78H, Lymphocytes (%) (Auto) 9L, Monocytes (%) (Auto) 10, Eosinophils (%) (Auto) 1, Basophils (%) (Auto) 1, Neutrophils # (Auto) 8.7H, Lymphocytes # (Auto) 1.0, Monocytes # (Auto) 1.1H, Eosinophils # (Auto) 0.2, Basophils # (Auto) 0.1, Immature Granulocyte # (Auto) 0.1, Sodium Level 141, Potassium Level 4.0, Chloride Level 110H, Carbon Dioxide Level 19L, Anion Gap 12, Blood Urea Nitrogen 24H, Creatinine 1.86H, Estimat Glomerular Filtration Rate 38, BUN/Creatinine Ratio 13, Glucose Level 115H, Calcium Level 8.8, Corrected Calcium 9.7, Total Bilirubin 0.7, Aspartate Amino Transf (AST/SGOT) 13, Alanine Aminotransferase (ALT/SGPT) 11, Alkaline Phosphatase 106, Total Protein 6.1L, Albumin 2.9L 07/23/22 11:04: Glucometer 150H 07/23/22 16:13: Glucometer 135H 07/23/22 20:54: Glucometer 216H 07/24/22 04:00: White Blood Count 12.9H, Red Blood Count 3.80L, Hemoglobin 11.3L, Hematocrit 35L , Mean Corpuscular Volume 92, Mean Corpuscular Hemoglobin 30, Mean Corpuscular Hemoglobin Concent 32, Red Cell Distribution Width 13.7, Platelet Count 293, M remedios Platelet Volume 11.3, Immature Granulocyte % (Auto) 1, Neutrophils (%) (Auto) 93H, Lymphocytes (%) (Auto) 4L, Monocytes (%) (Auto) 2, Eosinophils (%) (Auto) 0, Basophils (%) (Auto) 0, Neutrophils # (Auto) 12.0H, Lymphocytes # (Auto) 0.5L, Monocytes # (Auto) 0.2, Eosinophils # (Auto) 0.0, Basophils # (Auto) 0.0, Immature Granulocyte # (Auto) 0.1, Sodium Level 143, Potassium Level 4.5, Chloride Level 111H, Carbon Dioxide Level 17L, Anion Gap 15H, Blood Urea Nitrogen 26H, Creatinine 1.91H, Estimat Glomerular Filtration Rate 37, BUN/Creatinine Ratio 14, Glucose Level 257H, Calcium Level 9.2, Corrected Calcium 9.8, Total Bilirubin 0.6, Aspartate Amino Transf (AST/SGOT) 14, Alanine Aminotransferase (ALT/SGPT) 12, Alkaline Phosphatase 121, Total Protein 6.6, Albumin 3.2 Microbiology 07/21/22 Gram Stain - Final, Resulted 07/21/22 Anaerobic Culture - Preliminary, Resulted No anaerobes isolated 07/21/22 Surgical Culture - Final, Resulted Staphylococcus aureus 07/21/22 MRSA Screen - Final, Complete MRSA not isolated Pending Labs Microbiology Date/Time Source Procedure Growth Status 07/21/22 14:33 Body Site, Not Otherwise Spec. Toe Gram Stain - Final Resulted 07/21/22 14:33 Body Site, Not Otherwise Spec. Toe Anaerobic Culture - Preliminary No anaerobes isolated Resulted 07/21/22 14:33 Surgical Culture - Final Staphylococcus aureus Resulted 07/21/22 12:45 Nasal MRSA Screen - Final MRSA not isolated Complete Laboratory Tests 07/20/22 17:50: White Blood Count 17.6, Red Blood Count 4.38, Hemoglobin 13.2, Hematocrit 40, Mean Corpuscular Volume 92, Mean Corpuscular Hemoglobin 30, Mean Corpuscular Hemoglobin Concent 33, Red Cell Distribution Width 13.4, Platelet Count 240, Me an Platelet Volume 11.4, Immature Granulocyte % (Auto) 1, Neutrophils (%) (Auto) 84, Lymphocytes (%) (Auto) 4, Monocytes (%) (Auto) 11, Eosinophils (%) (Auto) 0, Basophils (%) (Auto) 0, Neutrophils # (Auto) 14.8, Lymphocytes # (Auto) 0.7, Monocytes # (Auto) 1.9, Eosinophils # (Auto) 0.0, Basophils # (Auto) 0.1, Immature Granulocyte # (Auto) 0.1, Neutrophils % (Manual) 85, Lymphocytes % (Manual) 3, Monocytes % (Manual) 11, Basophils % (Manual) 1, Blood Morphology Comment NORMAL, Sodium Level 134, Potassium Level 4.8, Chloride Level 99, Carbon Dioxide Level 24, Anion Gap 11, Blood Urea Nitrogen 24, Creatinine 2.13, Estimat Glomerular Filtration Rate 32, BUN/Creatinine Ratio 11, Glucose Level 269, Lactic Acid Level 1.19, Calcium Level 9.6, Corrected Calcium 9.6, Total Bilirubin 0.8, Aspartate Amino Transf (AST/SGOT) 13, Alanine Aminotransferase (ALT/SGPT) 8, Alkaline Phosphatase 114, Total Protein 7.3, Albumin 4.0, Procalcitonin 0.15 07/20/22 20:49: Glucometer 200 07/21/22 05:32: Glucometer 119 07/21/22 11:00: White Blood Count 13.8, Red Blood Count 3.88, Hemoglobin 11.6, Hematocrit 36, Mean Corpuscular Volume 92, Mean Corpuscular Hemoglobin 30, Mean Corpuscular Hemoglobin Concent 33, Red Cell Distribution Width 13.6, Platelet Count 207, Mean Platelet Volume 11.2, Immature Granulocyte % (Auto) 0, Neutrophils (%) (Auto) 83, Lymphocytes (%) (Auto) 5, Monocytes (%) (Auto) 11, Eosinophils (%) (Auto) 0, Basophils (%) (Auto) 0, Neutrophils # (Auto) 11.5, Lymphocytes # (Auto) 0.8, Monocytes # (Auto) 1.4, Eosinophils # (Auto) 0.0, Basophils # (Auto) 0.1, Immature Granulocyte # (Auto) 0.1, Sodium Level 137, Potassium Level 3.9, Chloride Level 103, Carbon Dioxide Level 21, Anion Gap 13, Blood Urea Nitrogen 25, Creatinine 2.00, Estimat Glomerular Filtration Rate 35, BUN/Creatinine Ratio 13, Glucose Level 127, Calcium Level 8.6, Corrected Calcium 9.2, Total Bilirubin 0.9, Aspartate Amino Transf (AST/SGOT) 9, Alanine Aminotransferase (ALT/SGPT) 7, Alkaline Phosphatase 90, Total Protein 6.2, Albumin 3.3 07/21/22 15:53: Glucometer 143 07/21/22 20:41: Glucometer 217 07/22/22 04:50: White Blood Count 13.4, Red Blood Count 3.51, Hemoglobin 10.6, Hematocrit 33, Mean Corpuscular Volume 93, Mean Corpuscular Hemoglobin 30, Mean Corpuscular Hemoglobin Concent 33, Red Cell Distribution Width 13.7, Platelet Count 227, Mean Platelet Volume 11.2, Immature Granulocyte % (Auto) 0, Neutrophils (%) (Auto) 79, Lymphocytes (%) (Auto) 8, Monocytes (%) (Auto) 12, Eosinophils (%) (Auto) 0, Basophils (%) (Auto) 0, Neutrophils # (Auto) 10.6, Lymphocytes # (Auto) 1.1, Monocytes # (Auto) 1.6, Eosinophils # (Auto) 0.0, Basophils # (Auto) 0.1, Immature Granulocyte # (Auto) 0.1, Sodium Level 140, Potassium Level 3.9, Chloride Level 107, Carbon Dioxide Level 20, Anion Gap 13, Blood Urea Nitrogen 30, Creatinine 2.20, Estimat Glomerular Filtration Rate 31, BUN/Creatinine Ratio 14, Glucose Level 151, Calcium Level 8.5, Corrected Calcium 9.3, Total Bilirubin 0.6, Aspartate Amino Transf (AST/SGOT) 13, Alanine Aminotransferase (ALT/SGPT) 12, Alkaline Phosphatase 102, Total Protein 5.7, Albumin 3.0 07/22/22 11:10: Glucometer 206 07/22/22 15:22: Glucometer 163 07/22/22 16:40: Vancomycin Level Trough 15.0 07/22/22 20:20: Glucometer 140 07/23/22 05:25: White Blood Count 11.0, Red Blood Count 3.52, Hemoglobin 10.6, Hematocrit 33, Mean Corpuscular Volume 93, Mean Corpuscular Hemoglobin 30, Mean Corpuscular Hemoglobin Concent 32, Red Cell Distribution Width 13.7, Platelet Count 237, Mean Platelet Volume 11.1, Immature Granulocyte % (Auto) 1, Neutrophils (%) (Auto) 78, Lymphocytes (%) (Auto) 9, Monocytes (%) (Auto) 10, Eosinophils (%) (Auto) 1, Basophils (%) (Auto) 1, Neutrophils # (Auto) 8.7, Lymphocytes # (Auto) 1.0, Monocytes # (Auto) 1.1, Eosinophils # (Auto) 0.2, Basophils # (Auto) 0.1, Immature Granulocyte # (Auto) 0.1, Sodium Level 141, Potassium Level 4.0, Chloride Level 110, Carbon Dioxide Level 19, Anion Gap 12, Blood Urea Nitrogen 24, Creatinine 1.86, Estimat Glomerular Filtration Rate 38, BUN/Creatinine Ratio 13, Glucose Level 115, Calcium Level 8.8, Corrected Calcium 9.7, Total Bilirubin 0.7, Aspartate Amino Transf (AST/SGOT) 13, Alanine Aminotransferase (ALT/SGPT) 11, Alkaline Phosphatase 106, Total Protein 6.1, Albumin 2.9 07/23/22 11:04: Glucometer 150 07/23/22 16:13: Glucometer 135 07/23/22 20:54: Glucometer 216 07/24/22 04:00: White Blood Count 12.9, Red Blood Count 3.80, Hemoglobin 11.3, Hematocrit 35, Mean Corpuscular Volume 92, Mean Corpuscular Hemoglobin 30, Mean Corpuscular Hemoglobin Concent 32, Red Cell Distribution Width 13.7, Platelet Count 293, Mean Platelet Volume 11.3, Immature Granulocyte % (Auto) 1, Neutrophils (%) (Auto) 93, Lymphocytes (%) (Auto) 4, Monocytes (%) (Auto) 2, Eosinophils (%) (Auto) 0, Basophils (%) (Auto) 0, Neutrophils # (Auto) 12.0, Lymphocytes # (Auto) 0.5, Monocytes # (Auto) 0.2, Eosinophils # (Auto) 0.0, Basophils # (Auto) 0.0, Immature Granulocyte # (Auto) 0.1, Sodium Level 143, Potassium Level 4.5, Chloride Level 111, Carbon Dioxide Level 17, Anion Gap 15, Blood Urea Nitrogen 26, Creatinine 1.91, Estimat Glomerular Filtration Rate 37, BUN/Creatinine Ratio 14, Glucose Level 257, Calcium Level 9.2, Corrected Calcium 9.8, Total Bilirubin 0.6, Aspartate Amino Transf (AST/SGOT) 14, Alanine Aminotransferase (ALT/SGPT) 12, Alkaline Phosphatase 121, Total Protein 6.6, Albumin 3.2 Discharge Home Medications: Active Scripts Active Daptomycin 500 Mg Vial 500 Mg IV DAILY Doxycycline Hyclate 100 Mg Tablet 100 Mg PO BID 10 Days Reported Tylenol Extra Strength (Acetaminophen) 500 Mg Tablet 1,000 Mg PO Q8H PRN Entresto 49 mg-51 mg Tablet (Sacubitril/Valsartan) 49 Mg-51 Mg Tablet 1 Ea PO BID Oxycodone-Acetaminophen 5-325 (Oxycodone HCl/Acetaminophen) 5 Mg-325 Mg Tablet 1 Ea PO BID PRN Pantoprazole Sodium 40 Mg Tablet.dr 40 Mg PO DAILY Feosol (Ferrous Sulfate) 325 Mg (65 Mg Iron) Tablet 325 Mg PO HS Farxiga (Dapagliflozin Propanediol) 10 Mg Tablet 10 Mg PO HS Spironolactone 25 Mg Tablet 25 Mg PO DAILY Metoprolol Succinate 50 Mg Tab.er.24h 50 Mg PO HS Furosemide 40 Mg Tablet 40 Mg PO Q48H Allopurinol 100 Mg Tablet 100 Mg PO BID Clopidogrel (Clopidogrel Bisulfate) 75 Mg Tablet 75 Mg PO DAILY Flomax (Tamsulosin HCl) 0.4 Mg Cap 0.4 Mg PO HS Ambien (Zolpidem Tartrate) 10 Mg Tablet 10 Mg PO HS Bethanechol Chloride 50 Mg Tablet 50 Mg PO HS Instructions to patient/family Please see electronic discharge instructions given to patient. Diagnosis/Problems Diagnosis/Problems (1) Gangrene of toe of right foot Clinical Quality Measures DVT/VTE Risk/Contraindication: Contraindications-Mechi: Other *list below* Other: lower leg cellulitis NICHOLAS GLOVER DO Jul 24, 2022 10:20
--- NOTE | 2022-07-24 12:41 | Progress Note ---
MEREDITHHARIKA 07/24/22 1241: Progress Note Subjective: Today, pt experienced a choking episode resulting in his throwing up while eating breakfast. Pt states that he felt like a piece of sausage got stuck in his throat causing him to vomit. Pt recovered and was able to drink following the episode Pt states that he has never experienced anything similar before. Otherwise, pt is sitting on the side of the bed comfortably. Pt received an injection of methyprednisolone and was started on Colchinine yesterday. Pt states that his L knee is still painful but that it has improved from yesterday. Pt denies any pain in his R foot. Pt has been able to ambulate to bathroom. Pt continues to void and have BMs. Pt denies any current nausea, CP, SOA, abd pain, or diarrhea. Pt has been moved down to inpatient therapy. Hospital Course: 42yo M with h/o NIDDM, PAD, CAD, CKD, peripheral neuropathy, and HTN was referred to via [place] from Dr. Fam's office yesterday due to right foot cellulitis that has been worsening for the past week. 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 Pt did not seek medical attention at that time. Pt states that one week ago, the pain in his foot worsened and started to radiate up his leg. Yesterday, pt states that he became febrile, having a max temperature of 102F at home. This prompted him to be seen by Dr. Fam who referred him to the hospital to be admitted. Workup found an elevated WBC. Pt was started on IV Zosyn and Vancomycin. Pt had a foot XRAY on 07/20 that showed no fractures or osteomyelitis. Surgery was consulted and Dr. Maharaj saw the pt on 07/20.MRI of R foot was ordered and was significant for R 3rd digit gangrene and osteomyelitis. On 07/21, pt had a successful amputation of the 3rd digit on the right foot by Nicko. Following, amputation pt's pain improved significantly. On 07/23, pt started to experience L medial knee pain that was exacerbated with movement. Pt was unable to do PT that morning due to pain. Pt stated that pain was similiar to gout flares he's had in the past, for which he takes allopurinol daily. Pt was treated for an acute gout flare and received an injection of methylprednisolone and started on Colchinine. Pt also had an XRAY of the left knee that showed mild chronic changes but was negative for joint effusion. Today, pt experienced a choking episode resulting in his throwing up while eating breakfast. Pt states that he felt like a piece of sausage got stuck in his throat causing him to vomit. Pt recovered and was able to drink following the episode. Otherwise, pt states that his L knee pain has improved from yesterday following the injection and colchinine. Pt denies any pain in his R foot. Pt has no other complaints. Pt was moved down to inpatient therapy today. SUE FAM DO 07/25/22 0514: Supervisory-Addendum Brief Verification & Attestation Participated in pt care: history, MDM, physical Personally performed: exam, history, MDM, supervision of care Care discussed with: Medical Student Procedures: n/a Results interpretation: Verified all documentation Verification and Attestation of Medical Student E/M Service A medical student performed and documented this service in my presence. I reviewed and verified all information documented by the medical student and made modifications to such information, when appropriate. I personally performed the physical exam and medical decision making. Sue Fam, Jul 25, 2022,05:14 HARIKA HARPER Jul 24, 2022 12:41 SUE FAM DO Jul 25, 2022 05:14
--- NOTE | 2022-07-24 15:56 | Progress Note - Cardiology ---
Cardiology SOAP Progress Note Subjective: No cp or palp or syncope or shortness of breath No n/v/d Some gen weakness and malaise Objective: I&O/Vital Signs 07/24/22 07/24/22 07/24/22 07/24/22 07:00 07:47 07:50 08:00 Temp 36.1 Pulse 72 72 Resp 18 B/P (MAP) 160/73 (102) Pulse Ox 94 94 O2 Delivery Room Air Room Air Room Air 07/24/22 10:47 Pulse Ox 94 O2 Delivery Room Air 07/24/22 00:00 Intake Total 1510 ml Output Total 740 ml Balance 770 ml Weight (Pounds): 195 Weight (Ounces): 11.2 Weight (Calculated Kilograms): 88.976249 Constitutional: AAO x 3, well-developed, well-nourished Respiratory: No accessory muscle use, No respiratory distress; chest expansion is symmetric, chest is bilaterally symmetric, lungs clear to auscultation Cardiovascular: regular rate-rhythm; No JVD; S1 and S2 Gastrointestional: No tender; soft, round, audible bowel sounds Extremities: no lower extremity edema bilateral, wound (S/P right foot, third digit ampuation - dressing in place) Neurologic/Psychiatric: other (moves all limbs equally) Skin: other (see above) Results/Procedures: Labs Laboratory Tests 07/23/22 16:13: Glucometer 135H 07/23/22 20:54: Glucometer 216H 07/24/22 04:00: White Blood Count 12.9H, Red Blood Count 3.80L, Hemoglobin 11.3L, Hematocrit 35L , Mean Corpuscular Volume 92, Mean Corpuscular Hemoglobin 30, Mean Corpuscular Hemoglobin Concent 32, Red Cell Distribution Width 13.7, Platelet Count 293, Mean Platelet Volume 11.3, Immature Granulocyte % (Auto) 1, Neutrophils (%) (Auto) 93H, Lymphocytes (%) (Auto) 4L, Monocytes (%) (Auto) 2, Eosinophils (%) (Auto) 0, Basophils (%) (Auto) 0, Neutrophils # (Auto) 12.0H, Lymphocytes # (Auto) 0.5L, Monocytes # (Auto) 0.2, Eosinophils # (Auto) 0.0, Basophils # (Auto) 0.0, Immature Granulocyte # (Auto) 0.1, Sodium Level 143, Potassium Level 4.5, Chloride Level 111H, Carbon Dioxide Level 17L, Anion Gap 15H, Blood Urea Nitrogen 26H, Creatinine 1.91H, Estimat Glomerular Filtration Rate 37, BUN/Creatinine Ratio 14, Glucose Level 257H, Calcium Level 9.2, Corrected Calcium 9.8, Total Bilirubin 0.6, Aspartate Amino Transf (AST/SGOT) 14, Alanine Aminotransferase (ALT/SGPT) 12, Alkaline Phosphatase 121, Total Protein 6.6, Albumin 3.2 Microbiology 07/21/22 Gram Stain - Final, Resulted 07/21/22 Anaerobic Culture - Preliminary, Resulted No anaerobes isolated 07/21/22 Surgical Culture - Final, Resulted Staphylococcus aureus 07/21/22 MRSA Screen - Final, Complete MRSA not isolated Laboratory Tests 07/23/22 05:25 07/24/22 04:00 A/P: Assessment: 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 Maharaj and Dr. Fam CAD and ischemic cardiomyopathy: - Card cath of 02/09/17: near-total occlusion of LAD treated with overlapping Resolute 2.25x30 and 2.5x14 stents and both postdilated with a 2.75 mm balloon to 2.9 mm diameter; LCX and RCA had relatively mod disease; elevated LVEDP - MPI of April 16, 2020 showed inferoapical myocardial infarction with a small amt of tosin-infarct ischemia. Anteroapical akinesis. LVEF 30%. Chronic systolic and diastolic CHF: - due to ischemic cardiomyopathy and severe mitral regurg - Echo 02/17/21: LVEF 30-35%, mod cardiomegaly (LV, RA, LA), mod to sev MR, AoV sclerosis w/o stenosis, mild MR, PASP 45-50 mmHg - Echocardiogram of 12-25-21 showed mod concentric hypertrophy. LVEF 25-30%. Akinesis of the anterior myocardium. LA is mod dilated. RA is mildly dilated. Mod MR, directed eccentrically. AoV thickening, consistent with sclerosis with mild AoR. A trivial free flowing pericardial effusion is identified. - Echo for 02/25/22 (as part of participation in MitraClip trial at [facility]): LVEF 37%, [place] device with mild residual MR, severe LV dilatation, global hypo, apical akinesis - Echocardiogram of 03-19-22 showed LVEF 30-35%. Akinesis of the apical myocardium. Grade 1 diastolic dysfunction. Mild to mod MR. AoV thickening, consistent with sclerosis. Trivial regurg. PASP 20 mmHg - MUGA 05-21-22 showed: Ischemic cardiomyopathy with anteroapical akinesis and with left ventricular ejection fraction of 43%. Severe MR: - Echocardiogram from 02-17-21 showed mod to severe MR - Referred to Dr. Rodriguez per pt request - advised he keep referral to [facility] - Referred to [facility]: Dr. Garg at [facility] has offered a minimally invasive mitral valve replacement, but the pt request an even less invasive approach and desires a mitraclip - S/P successful mitraclip placement by Dr. Vazquez at [facility] on 08-26-21 Hypertension: H/o GI bleed : - May 2018 hosp with GI bleed requiring multiple transfusions. - Endoscopy by Dr Maharaj in early May 2018: reflux esophagitis (grade 2), no HH, moderate gastritis with small antral erosion.mild chronic stage 1 ext and int hemorrhoids. - Long hosp (April and May 2018) with diffuse myopathy and weakness following GI bleed and blood transfusions. Thrombocytosis during hosp of May 2018, most likely reactive, followed and treated by Dr Maher Chronic joint pains of unclear etiology: - gout vs RMSF vs statins. DM II: - followed by PCP H/o tobaccoism: - Quit tobacco use in or around 1999 CKD IV PFT of March 31, 2017: spirometry is WNL Carotid dz: Mild carotid arterial disease on carotid u/s of 11/17/18 No AAA on AAA screening scan of 11/17/18 PAD and renal artery stenosis - CTA images of 12-16-2021 (following abnormal segmentals) demonstrate diffuse atherosclerotic plaquing of the aorta without evidence of aneurysm. There is a significant left renal artery stenosis. There are stenoses of the origins of the profunda femoris arteries on the right side. There is moderate stenosis in the distal SFA on the right side and high-grade stenosis of the junction of the ri ght SFA and popliteal artery. There is two vessel runoff on the right side. On the left side, there is high-grade stenosis of the lower SFA with two vessel runoff distally. Plan: * Complex management * Conservative management of PAD per patient request (see note of 07/21/22) * S/P right third digit amputation by Dr. Maharaj * BP not well controlled - increase BB - adjust regimen as indicated/tolerated * Monitor lab * Replace electrolytes as indicated * Gout managed by RHYS Dixon MD [facility] Jul 24, 2022 15:55
== END 2022-07-24 11:10 | DRG 854 ==
LOC: 4TH 16:28
PROVIDERS: ADMIT Internal Medicine; ATTEND Internal Medicine
PROC: 0Y6T0Z0 Detachment at Right 3rd Toe, Complete, Open Approach (ICD-10-PCS; principal; 2022-07-21 14:07)
DX: A41.9 Sepsis, unspecified organism (principal); E11.52 Type 2 diabetes mellitus with diabetic peripheral angiopathy with gangrene; M86.9 Osteomyelitis, unspecified; I70.261 Atherosclerosis of native arteries of extremities with gangrene, right leg; L03.115 Cellulitis of right lower limb; I13.0 Hypertensive heart and chronic kidney disease with heart failure and stage 1 through stage 4 chronic kidney disease, or unspecified chronic kidney disease; N18.4 Chronic kidney disease, stage 4 (severe); I50.32 Chronic diastolic (congestive) heart failure; E11.69 Type 2 diabetes mellitus with other specified complication; E11.42 Type 2 diabetes mellitus with diabetic polyneuropathy; Z79.84 Long term (current) use of oral hypoglycemic drugs; I25.5 Ischemic cardiomyopathy; E11.22 Type 2 diabetes mellitus with diabetic chronic kidney disease; I08.0 Rheumatic disorders of both mitral and aortic valves; E78.00 Pure hypercholesterolemia, unspecified; I25.10 Atherosclerotic heart disease of native coronary artery without angina pectoris; J44.9 Chronic obstructive pulmonary disease, unspecified; M10.9 Gout, unspecified; I70.0 Atherosclerosis of aorta; I70.1 Atherosclerosis of renal artery; E11.51 Type 2 diabetes mellitus with diabetic peripheral angiopathy without gangrene; I70.203 Unspecified atherosclerosis of native arteries of extremities, bilateral legs; Z79.02 Long term (current) use of antithrombotics/antiplatelets; Z87.891 Personal history of nicotine dependence
CPT/HCPCS: 36415; 36569; 73562; 73620; 76937; 80053; 80202; 82947; 83605; 84145; 85007; 85025; 85027; 87070; 87075; 87077; 87081; 87186; 87205; 93926; 94640; 94760

== ENCOUNTER 2022-07-24 10:03 | Inpatient (IN) | payer MEDICARE ==
[~2022-07-24] VITALS: Ht 177.8 cm; Wt 77.5 kg
[~2022-07-24 10:03] MED LIST changes: +ACET-2267 PO; +AMOX-355 PO; +DAPA10TA PO; +DAPT500V18 IV; +DOXY100T2 PO; +FERR-65 PO; +METO50TA7 PO; +OXYC1TAB11 PO; +SACU1TAB7 PO; +SPIR25TA5 PO; +[UNRECOGNIZED DRUG - OTHER] PO
--- NOTE | 2022-07-24 10:55 | PM&R Post Admission Assessment ---
PM&R HP Date of Visit: Jul 24, 2022 Time of Visit: 13:00 History of Present Illness Chief complaint: Debility following right third toe amputation with osteomyelitis and cellulitis HPI: ([facility] course: 42yo M with h/o NIDDM, PAD, CAD, CKD, peripheral neuropathy, and HTN was referred to keily Jackson from Dr. Glover's office yesterday due to right foot cellulitis that has been worsening for the past week. 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 Pt did not seek medical attention at that time. Pt states that one week ago, the pain in his foot worsened and started to radiate up his leg. Yesterday, pt states that he became febrile, having a max temperature of 102F at home. This prompted him to be seen by Dr. Glover who referred him to the hospital to be admitted. Workup found an elevated WBC. Pt was started on IV Zosyn and Vancomycin. Pt had a foot XRAY on 07/20 that showed no fractures or osteomyelitis. Surgery was consulted and Dr. Maharaj saw the pt on 07/20.MRI of R foot was ordered and was significant for R 3rd digit gangrene and osteomyelitis. On 07/21, pt had a successful amputation of the 3rd digit on the right foot by Nicko. Following, amputation pt's pain improved significantly. On 07/23, pt started to experience L medial knee pain that was exacerbated with movement. Pt was unable to do PT that morning due to pain. Pt stated that pain was similiar to gout flares he's had in the past, for which he takes allopurinol daily. Pt was treated for an acute gout flare and received an injection of methylprednisolone and started on Colchinine. Pt also had an XRAY of the left knee that showed mild chronic changes but was negative for joint effusion. Today, pt experienced a choking episode resulting in his throwing up while eating breakfast. Pt states that he felt like a piece of sausage got stuck in his throat causing him to vomit. Pt recovered and was able to drink following the episode. Otherwise, pt states that his L knee pain has improved from yesterday following the injection and colchinine. Pt denies any pain in his R foot. Pt has no other complaints. Pt was moved down to inpatient therapy today. HARIKA HARPER) Currently he is doing well and ready for therapy. Vancomycin will be maintained. PICC line in place. Bowels are moving. Voiding well. Colchicine will be changed to as needed. Past Gdxfyad-Ykqazo-Upiftp Hx Past Med/Social Hx: Reviewed Nursing Past Med/Soc Hx, Reviewed and Corrections made Patient Social History Marrital Status: cohabiting Employed/Student: employed Alcohol Use: Occasionally Uses Alcohol Beverage of Choice: Beer Smoking Status: Former Smoker Former Smoker, Quit: February 09, 1998 Type Used: Cigarettes 2nd Hand Smoke Exposure: No Recent Hopitalizations: Yes Immunizations Up To Date Pediatric: No Seasonal Allergies Seasonal Allergies: No Past Medical History Surgeries: Pacemaker Respiratory: COPD, Pneumonia Currently Using CPAP: No Currently Using BIPAP: No Cardiac: Coronary Artery Disease, High Cholesterol, Hypertension, Valvular Heart Disease Neurological: Neuropathy Genitourinary: Benign Prostatic Hyperpl, Renal Failure Gastrointestinal: Gastroesophageal Reflux Musculoskeletal: Arthritis, Chronic Back Pain, Gout Endocrine: Diabetes, Non-Insulin dep HEENT: Cataract Loss of Vision: Denies Hearing Impairment: Denies History of Blood Disorders: No Family History No Pertinent Family 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 PM&R Allergy/Meds/Data Review Allergies Coded Allergies: No Known Drug Allergies (Unverified , 01/25/17) Home Medications Scheduled Allopurinol (Allopurinol), 100 MG PO BID, (Reported) Bethanechol Chloride (Bethanechol Chloride), 50 MG PO HS, (Reported) Clopidogrel Bisulfate (Clopidogrel), 75 MG PO DAILY, (Reported) Dapagliflozin Propanediol (Farxiga), 10 MG PO HS, (Reported) Daptomycin (Daptomycin), 500 MG IV DAILY Doxycycline Hyclate (Doxycycline Hyclate), 100 MG PO BID Ferrous Sulfate (Feosol), 325 MG PO HS, (Reported) Furosemide (Furosemide), 40 MG PO Q48H, (Reported) Metoprolol Succinate (Metoprolol Succinate), 50 MG PO HS, (Reported) Pantoprazole Sodium (Pantoprazole Sodium), 40 MG PO DAILY, (Reported) Sacubitril/Valsartan (Entresto 49 mg-51 mg Tablet), 1 EA PO BID, (Reported) Spironolactone (Spironolactone), 25 MG PO DAILY, (Reported) Tamsulosin HCl (Flomax), 0.4 MG PO HS, (Reported) Zolpidem Tartrate (Ambien), 10 MG PO HS, (Reported) Scheduled PRN Acetaminophen (Tylenol Extra Strength), 1,000 MG PO Q8H PRN for PAIN-MILD (1-4), (Reported) Oxycodone HCl/Acetaminophen (Oxycodone-Acetaminophen 5-325), 1 EA PO BID PRN for PAIN-MODERATE (5-7), (Reported) Discontinued Medications Ferrous Sulfate (Ferosul), 325 MG PO HS, (Reported) Discontinued Reason: No Longer Taking Glimepiride (Glimepiride), 4 MG PO BID, (Reported) Discontinued Reason: No Longer Taking Hydrocodone/Acetaminophen (Hydrocodone-Acetamin 7.5-325), 1 EA PO BID PRN for PAIN-MODERATE (5-7), (Reported) Discontinued Reason: No Longer Taking Lisinopril (Lisinopril), 20 MG PO HS, (Reported) Discontinued Reason: No Longer Taking Metoprolol Succinate (Metoprolol Succinate), 100 MG PO DAILY, (Reported) Discontinued Reason: No Longer Taking Oxycodone HCl/Acetaminophen (Percocet 5-325 mg Tablet), 1 TAB PO BID Discontinued Reason: Duplicate Order Pantoprazole Sodium (Pantoprazole Sodium), 40 MG PO DAILY Discontinued Reason: Duplicate Order Potassium Chloride (K-Tab ER), 10 MEQ PO HS, (Reported) Discontinued Reason: No Longer Taking Prednisone (Prednisone), 20 MG PO DAILY Discontinued Reason: No Longer Taking [Ertresto 49-51 mg ], 1 TAB PO BID, (Reported) Discontinued Reason: Duplicate Order Current Medications Current Medications Reviewed Review of Systems Constitutional: see HPI, dizziness, malaise, weakness EENTM: no symptoms reported Respiratory: no symptoms reported Cardiovascular: no symptoms reported Gastrointestinal: nausea Genitourinary: no symptoms reported Musculoskeletal: back pain, joint pain Skin: no symptoms reported Psychiatric/Neurological: Depressed All Other Systems Reviewed Negative Unless Noted: Yes Physical Exam Physical Exam Vital Signs Capillary Refill : Height, Weight, BMI Height: 5'11.00" Weight: 195lbs. 11.2oz. 88.329736tw; 24.76 BMI Method:Stated General Appearance: No Apparent Distress, WD/WN, Chronically ill Eyes: Bilateral Eye Normal Inspection, Bilateral Eye PERRL HEENT: PERRL/EOMI, Normal ENT Inspection, Pharynx Normal Neck: Full Range of Motion, Normal Inspection, Non Tender, Supple, Carotid Bruit Respiratory: Chest Non Tender, Lungs Clear, Normal Breath Sounds, No Accessory Muscle Use, No Respiratory Distress Cardiovascular: Regular Rate, Rhythm, No Edema, No Gallop, No JVD, No Murmur, Normal Peripheral Pulses Gastrointestinal: Normal Bowel Sounds, No Organomegaly, No Pulsatile Mass, Non Tender, Soft Back: Normal Inspection, No CVA Tenderness, No Vertebral Tenderness Extremity: Normal Capillary Refill, Normal Inspection, Normal Range of Motion (Slow and decreased in general but especially left leg), Non Tender, No Calf Tenderness, No Pedal Edema Neurologic/Psychiatric: Alert, Oriented x3, Normal Mood/Affect, 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 Norm as Tested, Abnormal Gait, Motor Weakness (Generalized weakness) Skin: Normal Color, Warm/Dry Lymphatic: No Adenopathy PM&R Medical Assessment & Plan REHAB/MEDICAL ASSESSMENT AND PLAN: REHAB IMPAIRMENT GROUP: Debility ETIOLOGIC DIAGNOSIS: Debility The comorbidities that impact the patients function and/or functional outcome by: Recent third toe amputation with current foot cellulitis on IV antibiotics and overall complex cardiac issues with chronic kidney disease and current gout with left knee pain will require close monitoring REHAB PLAN: The patient is being admitted to our comprehensive inpatient rehabilitation facility and can tolerate the intensity of service consisting of at least: 180 minutes of therapy a day, 5 out of 7 days a week Rehab treatment will consist of: PT and OT will focus on regaining function and ambulatory stamina in order to regain enough function to remain independent when he goes home The patient/family has a good understanding of our discharge process and will benefit from an interdisciplinary inpatient rehabilitation program. The patient has potential to make improvement and is in need of at least two of the following multidisciplinary therapies including but not limited to physical, occupational, speech, and prosthetics and orthotics. Additionally the patient will need services from respiratory, nutritional services, wound care, psychology, etc. (Customize this to each patient). Given the patients complex condition and risk of further medical complications, rehabilitation services cannot be safely or effectively provided at a lower level of care such as a [place] [facility] facility. BARRIERS TO DISCHARGE: Chronic debility ESTIMATED LOS: 5 days DISPOSITION: Home RELEVANT CHANGES SINCE PREADMISSION SCREENING: I have compared the patients medical and functional status at the time of the preadmission screening and there are: No changes PROGNOSIS: Fair REHABILITATION GOALS: 1. PT and OT will focus on regaining function and ambulatory stamina in order to regain enough function to remain independent when he goes home All the above goals were reviewed with the patient and he/she is in agreement. By signing this document, I acknowledge that I have personally performed a full physical examination on this patient within 24 hours of admission to this inpatient rehabilitation facility and have determined the patient to be able to tolerate the above course of treatment at an intensive level for a reasonable p eriod of time. I will be completing a detailed individualized Plan of Care for this patient by day #4 of the patients stay based upon the Preadmission Screen, the Post-Admission Evaluation, and the therapy evaluations. Admission Dx/Comorbidities: (1) Gangrene of toe of right foot ICD Codes: I96 - Gangrene, not elsewhere classified (2) Knee pain Status: Chronic ICD Codes: M25.569 - Pain in unspecified knee Assessment/Plan Assessment and Plan Assess & Plan/Chief Complaint Assess & Plan/Chief Complaint 1. Sepsis -IV Zosyn 25mls/hr Q8H and Vancomycin 250mls/hr Q24H 2. Osteomyelitis and gangrene of 3rd digit on R foot -Had MRI confirming -Dr. Vela and Nicko will evaluate pt before proceeding with next steps in treatment plan 07/22: -successful amputation of 3 digit on R foot by Dr. Maharaj 3. NIDDM -takes metformin -Managed by Dr. Glover 4. Diabetic neuropathy 5. PAD -CT images from 12/16/21 demonstrated stenosis of varying degrees of the SFA and popliteal artery 6. HTN -controlled 7. CAD -cardiac cath 02/17/17 with stent placement due to near total occlusion of LAD 8. Ischemic Cardiomyopathy -Per cardiology notes, MPI on 04/16/20 showed inferoapical myocardial infa rction with a small amt of tosin-infarct ischemia. Anteroapical akinesis. LVEF 30% 8. COPD -controlled 9. Severe MR -- S/P successful mitraclip placement by Dr. Vazquez at [facility] on 08/26/21 10. Chronic CHF -most recent ECHO showed LVEF 30-35%, grade 1 diastolic dysfunction, mild to mod MR, AoV thicknening (consistent with sclerosis), and PASP 20mmHg -MUGA on 05/21/22 was significant for ischemic cardiomyopathy with anteroapical akinesis and with left ventricular ejection fraction of 43%. 10. CKD IV 07/22: -moderate increase in BUN and Cr from yesterday, 30 and 2.2, but otherwise holding stable 11. Renal Artery Stenosis -CT images on 12/16/21 showed significant stenosis of L renal artery 12. H/o GI bleed -multiple hospitalizations requiring transfusions -Last EGD/colonoscopy 05/[address] Maharaj found moderate gastritis and mild chronic stage 1 external and internal hemorrhoids 13. Chronic Joint pain -managed by Dr. Glover 14. Carotid Artery Disease -noted on carotid u/s on 11/17/18 15. Gout -takes allopurinol at home and is continued in hospital 07/23: -L Knee gout flare >consult ortho for possible steroid injection >L Knee Xray >Start colchinine Plan: Consult Ortho for L Knee gout flare, possible steroid injection L knee XRAY Start Colchinine and continue allopurinol Continue IV abx Hold PT, will re-evaluate tomorrow due to knee pain limiting movement Pain medication prn Continue glycemic control Clinical Quality Measures Admission Status Admission Dx 1. Sepsis -IV Zosyn 25mls/hr Q8H and Vancomycin 250mls/hr Q24H 2. Osteomyelitis and gangrene of 3rd digit on R foot -Had MRI confirming -Dr. Vela and Nicko will evaluate pt before proceeding with next steps in treatment plan 3. NIDDM -takes metformin -Managed by Dr. Glover 4. Diabetic neuropathy 5. PAD -CT images from 12/16/21 demonstrated stenosis of varying degrees of the SFA and popliteal artery 6. HTN -controlled 7. CAD -cardiac cath 02/17/17 with stent placement due to near total occlusion of LAD 8. Ischemic Cardiomyopathy -Per cardiology notes, MPI on 04/16/20 showed inferoapical myocardial infarction with a small amt of tosin-infarct ischemia. Anteroapical akinesis. LVEF 30% 8. COPD -controlled 9. Severe MR -- S/P successful mitraclip placement by Dr. Vazquez at [facility] on 08/26/21 10. Chronic CHF -most recent ECHO showed LVEF 30-35%, grade 1 diastolic dysfunction, mild to mod MR, AoV thicknening (consistent with sclerosis), and PASP 20mmHg -MUGA on 05/21/22 was significant for ischemic cardiomyopathy with anteroapical akinesis and with left ventricular ejection fraction of 43%. 10. CKD IV 11. Renal Artery Stenosis -CT images on 12/16/21 showed significant stenosis of L renal artery 12. H/o GI bleed -multiple hospitalizations requiring transfusions -Last EGD/colonoscopy 05/[address] Maharaj found moderate gastritis and mild chronic stage 1 external and internal hemorrhoids 13. Chronic Joint pain -managed by Dr. Glover 14. Carotid Artery Disease -noted on carotid u/s on 11/17/18 NICHOLAS GLOVER DO Jul 24, 2022 10:55
[2022-07-24] MEDS ORDERED: LOPERAMIDE 2 MG (IMODIUM) TABLET PO PRN (11:00)
[2022-07-24] MEDS ORDERED: DOCUSATE SODIUM 100 MG (COLACE) CAP PO PRN (11:00)
[2022-07-24] MEDS ORDERED: ACETAMINOPHEN 325 MG TABLET PO PRN ×2 (11:00→11:45)
[2022-07-24] MEDS ORDERED: BISACODYL 10 MG SUPP (DULCOLAX) PR PRN ×2 (11:00→11:45)
[2022-07-24] MEDS ORDERED: FLEET ENEMA ADULT 1 EA BTL PR PRN (11:00)
[2022-07-24] MEDS ORDERED: ONDANSETRON 4 MG (ZOFRAN) ORAL DISSOLVE TAB PO PRN ×2 (11:00→11:45)
[2022-07-24] MEDS ORDERED: LACTULOSE SYRUP 10GM/15ML (ENULOSE) 30ML UDC PO PRN ×2 (11:00→11:45)
[2022-07-24] MEDS ORDERED: CALCIUM CARBONATE 500 MG (TUMS) TAB.CHEW PO PRN ×2 (11:00→11:45)
[2022-07-24] MEDS ORDERED: diphenhydrAMINE 25 MG TAB (BENADRYL) PO PRN ×2 (11:00→11:45)
[2022-07-24] MEDS ORDERED: ALPRAZolam 0.25 MG (XANAX) TAB PO PRN (11:00)
[2022-07-24] MEDS ORDERED: MELATONIN 3 MG TABLET PO PRN ×2 (11:00→11:45)
[2022-07-24] MEDS ORDERED: guaiFENesin/CODEINE (ROBITUSSIN AC) 10ML UDC PO PRN (11:00)
--- OUTSIDE RECORDS SUMMARY | 2022-07-24 11:19 | XMS REPORT | Clinical Summary ---
Author Author [facility] Organization [facility] Address Unknown Phone Unavailable Care Team Providers Care [employer] Name Role Phone Sue Fam MD PCP Allergies No known active allergies Medications End Date Status Medication Sig Dispensed Refills Start Date Active bethanechol (URECHOLINE) Take 50 mg by 0 50 MG tablet mouth daily. Active tamsulosin (FLOMAX) 0.4 Take 0.4 mg 0 mg cap by mouth daily. Active ferrous sulfate 325 (65 Take 325 mg 0 FE) MG tablet by mouth daily with breakfast. Active clopidogreL (PLAVIX) 75 Take 75 mg by 0 mg tablet mouth daily. Active oxyCODONE-acetaminophen Take 1 tablet 0 (PERCOCET) 5-325 mg per by mouth tablet every 8 (eight) hours as needed for pain. Active zolpidem (AMBIEN) 5 MG Take 10 mg by 0 tablet mouth nightly as needed for sleep. Active allopurinoL (ZYLOPRIM) Take 100 mg 0 100 MG tablet by mouth 2 (two) times a day. Active pantoprazole (PROTONIX) Take 40 mg by 0 40 MG tablet mouth daily. Active spironolactone Take 25 mg by 0 (ALDACTONE) 25 MG tablet mouth daily. Active dapagliflozin (FARXIGA) Take 10 mg by 0 10 mg tablet mouth daily. Active sacubitriL-valsartan Take 1 tablet 90 tablet 3 (ENTRESTO) 97-103 mg per by mouth 2 2 tablet (two) times a day. Active metoprolol succinate Take 50 mg by 0 (TOPROL-XL) 50 MG 24 hr mouth daily. tablet Active furosemide (LASIX) 40 MG Take 40 mg by 0 tablet mouth daily. 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 Bilateral carotid artery disease 11/18/2018 Overview: Mild Ischemic cardiomyopathy Coronary atherosclerosis of [place] artery S/P primary angioplasty with coronary s tent Chronic combined systolic and diastolic CHF (congestive heart failure) Essential hypertension Chronic joint pain Bilateral carotid artery stenosis Uncontrolled diabetes mellitus, without long-term current use of insulin Stage 3 chronic kidney disease Resolved Problems Problem Noted Date Resolved Date Encounter to establish care 06/27/2021 Encounters Care Team Description Date Type Specialty Em Jordan RN Severe mitral valve regurgitation (Prima ry Dx) 05/04/2022 Orders Only from Last 3 Months Immunizations Name Administration Dates Next Due Influenza QIV 08/27/2021 (adjuvanted) IM Moderna Sars-cov-2 11/07/2020 Family History Medical History Relation Name Comments Diabetes Brother Lung cancer Father Heart failure Son Relation Name Status Comments Brother Father (Age 88) Mother Alive Son Social History Date Tobacco Use Types Packs/Day Years Used Quit: 04/18/1980 Smoking Tobacco: Former Cigarettes Smokeless Tobacco: Never Comments Alcohol Use Standard Drinks/Week Not Currently 0 (1 standard drink = 0.6 o z pure alcohol) Alcohol Habits Answer Date Recorded How often do you have a drink containing alcohol? Never 04/18/2021 How many drinks containing alcohol do you have on No t asked a typical day when you are drinking? How often do you have six or more drinks on one Not asked occasion? Sex Assigned at Date Recorded Not on file Last Filed Vital Signs Reading Time Taken Comments Vital Sign 98/62 02/25/2022 3:38 PM CDT Blood Pressure 74 02/25/2022 3:38 PM CDT Pulse 36.9 C (98.5 F) 02/25/2022 3:38 PM CDT Temperature 20 02/25/2022 3:38 PM CDT Respiratory Rate 97% 02/25/2022 3:38 PM CDT Oxygen Saturation - - Inhaled Oxygen Concentration 76.7 kg (169 lb) 02/25/2022 3:38 PM CDT Weight 177.8 cm (5' 10") 02/25/2022 3:38 PM CDT Height 24.25 02/25/2022 3:38 PM CDT Body Mass Index Plan of Treatment Care Team Description Date Type Specialty Davon Vazquez MD [id number] [facility] [address] [place] [address] 08/25/2022 Appointment Cardiology Wilda Restrepo RN ANP [address] [facility] [address] [place] [address] 08/25/2022 Appointment Valve Health Maintenance Due Date Last Done Comments Colonoscopy 1949 Colorectal Cancer 1949 Screening Diabetes Mellitus 1949 Ophthalmology Exam Diabetes Mellitus Urine 1949 Microalbumin FIT-DNA 1949 Fecal Occult Blood or FIT 1949 Hepatitis C Screen 1950 Medicare Annual Wellness 1949 Sigmoidoscopy 1949 Td/Tdap# 1949 Pneumococcal Vaccine: 65+ 1955 Years (1 - PCV) Diabetes Mellitus Foot 1959 Exam Zoster Vaccine# (1 of 2) 1968 AAA 2014 Depression Screening 2014 PHQ-9 # COVID-19 Vaccine (2 - 12/05/2020 11/07/2020 Moderna series) Advance Care Planning 10/04/2021 Conversation# Social Determinants of 10/04/2021 08/26/2021 Health# Diabetes Mellitus 03/01/2022 09/01/2021, Hemoglobin A1C 04/10/2021, 08/21/2020, Additional history exists Influenza Vaccine (#1) 2022 08/27/2021 Lipid Screening 08/26/2022 08/26/2021, 07/03/2021, 04/10/2021, Additional history exists Fall Risk Assessment # 08/27/2022 08/27/2021 Medical Devices Device Identifier Shelf Expiration Date Model / Serial / L ot Implanted Type Area Manufactur er 07/03/2023 [id number] / [id number] / [id number] Closure Device Perclose Prostyle Closure ABBOT T Suture Mediated [id number] - [id number] Device VA SCULAR Implanted: Qty: 1 on 08/26/2021 by Davon Vazquez MD at [facility] [id number] / / Implant Charles System [id number] - Non-Tissue EDFRAN S [id number] Implant LIFESCIENC Implanted: Qty: 1 on 08/26/2021 by Davon Holley MD at [facility] Results Not on filefrom Last 3 Months Insurance Type Payer Benefit Subscriber ID Effective Phone Address Plan / Dates Group Medicare MEDICARE MEDICARE [id number] 2014- [phone] WPS GHA PART A B Present ATTN CLAIMS DEPT [address] [place] [address] Advance Directives For more information, please contact: [phone] Date Inactivated Comments Code Status Date Activated Full Code 08/26/2021 10:37 AM Care Teams Start Date End Date [employer] Plant Operator Relationship Specialty 03/17/21 Sue Fam MD PCP - General Internal [address] [place] [address]
[2022-07-24 11:42] VITALS: BP 136/63
[2022-07-24] MEDS ORDERED: MILK OF MAGNESIA 400 MG/5 ML 30 ML UDC PO PRN (11:45)
[2022-07-24] MEDS ORDERED: polyethylene glycoL POWDER 17 GM (MIRALAX) PACK PO PRN (11:45)
[2022-07-24] MEDS ORDERED: ONDANSETRON 4 MG/2 ML (SDV) Z0FRAN IV PRN (11:45)
[2022-07-24] MEDS ORDERED: HYDROmorphone 2 MG/ML VIAL (DILAUDID) IV PRN (11:45)
[2022-07-24] MEDS ORDERED: diphenhydrAMINE 50 MG/ML INJ (BENADRYL) IVP PRN (11:45)
[2022-07-24] MEDS ORDERED: RT-ALBUTEROL/IPRATROPIUM 3 ML (DUONEB) VIAL INH PRN (11:45)
[2022-07-24] MEDS ORDERED: ANTACID SUSP 30 ML UDC (MYLANTA) PO PRN (11:45)
--- NOTE | 2022-07-24 11:50 | Physical Therapy Evaluation ---
PT Evaluation-General Medical Diagnosis Admission Date Jul 24, 2022 at 11:00 Medical Diagnosis: S/P AMPUTATION (RIGHT 3RD TOE) AND SEPSIS Onset Date: Jul 20, 2022 Therapy Diagnosis Therapy Diagnosis: Gait deficit, strength deficit Height/Weight Height (Feet): 5 Height (Inches): 11.00 Weight (Pounds): 195 Weight (Ounces): 11.2 Precautions Precautions/Isolations: Fall Prevention, Standard Precautions, Contact/Enteric Isolation MRSA of the wound/ Right foot Weight Bear Status Right Lower Extremity: Right Weight Bearing/Tolerated Left Lower Extremity: Left Weight Bearing/Tolerated Referral Physician: Dr. Fam Reason for Referral: Evaluation/Treatment Medical History Pertinent Medical History: CAD, DM, Heart Failure, HTN, Neuropathy, Renal Ins ufficiency Reviewed History: Yes Social History Home: Single Level Current Living Status: Spouse Entry Into Home: Level Entry PT Steps Into Home: 0 PT Steps Inside Home: 1 Prior Prior Level of Function SCALE: Activities may be completed with or without assistive devices. 5-Kgjxhynmnl-zztrmtn completes the activity by him/herself with no assistance from a helper. 5-Set-up or Clean-up Assistance-helper sets up or cleans up; patient completes activity. [place] assists only prior to or following the activity. 4-Supervision or Touching Assistance-helper provides verbal cues and/or touching/steadying and/or contact guard assistance as patient completes activity. Assistance may be provided throughout the activity or intermittently. 3-Partial/Moderate Assistance-helper does LESS THAN HALF the effort. [place] lifts, holds or supports trunk or limbs, but provides less than half the effort. 2-Substantial/Maximal Assistance-helper does MORE THAN HALF the effort. [place] lifts or holds trunk or limbs and provides more than half the effort. 7-Uynvxksrb-ovcadc does ALL the effort. Patient does none of the effort to complete the activity. Or, the assistance of 2 or more helpers is required for the patient to complete the activity. If activity was not attempted, code reason: 7-Patient Refused. 9-Not Applicable-not attempted and the patient did not perform the activity before the current illness, exacerbation or injury. 10-Not Attempted due to Environmental Limitations-(lack of equipment, weather restraints, etc.). 88-Not Attempted due to Medical Conditions or Safety Concerns. Bed Mobility: 6 Transfers (B,C,W/C): 6 Gait: 6 Stairs: 6 Indoor Mobility (Ambulation): Independent Stairs: Independent Prior Devices Use: None, Walker Prior Device Use: Cane PT Evaluation-Current Subjective Patient in the bathroom with , brushing his teeth and she assists him with toileting, both agreeable to treatment. Patient currently rates pain at 6/10 in his left knee and 4/10 in his right foot. Post treatment he reports he feels almost no pain in the right foot and 4/10 pain in the left knee. Pain Section J - Health Conditions 1. Rarely or not at all 2. Occasionally 3. Frequently 4. Almost constantly 8. Unable to answer Pain Effect on Sleep: 4 Pain Interference with Therapy: 4 Pain Interference w/Day-to-Day: 4 Objective Patient Orientation: Person, Place, Time, Situation ROM/Strength ROM Lower Extremities Right foot and ankle limited due to surgical wrap and ROM limited. Left knee extension lacks 10 degrees from full extension and only flexes to 90 degrees with assist from UE's. All other ROMs WFLs Strength Lower Extremities Right ankle/foot N/A. All other motions bilaterally 4-/5 Sensory Vision: Functional Hearing: Functional Sensation Right Lower Extremit: Intact Sensation Left Lower Extremity: Intact Transfers Roll Left & Right (QC): 6 Sit to Lying (QC): 6 Lying to Sitting/Side of Bed(Q: 4 Sit to Stand (QC): 4 Chair/Cok-us-Hyair Xfer(QC): 4 Toilet Transfer (QC): 4 Car Transfer (QC): 4 Gait Does the Patient Walk?: Yes Mode of Locomotion: Walk Anticipated Mode of Locomotion: Walk Walk 10 feet (QC): 4 Walk 50 ft with 2 Turns(QC): 4 Walk 150 ft (QC): 4 Walking 10ft/uneven surface-QC: 4 Gait Assistive Device: FWW Wheelchair Training Does the Pt Use a Wheelchair?: No Wheel 50 ft with 2 turns (QC): 9 Wheel 150 ft (QC): 9 Stairs #of Steps: 12 1 Step (curb) (QC): 4 4 Steps (QC): 4 12 Steps (QC): 4 CGA for all 12 steps Balance Sitting Static: Good Sitting Dynamic: Good Standing Static: Fair Standing Dynamic: Fair Picking up an Object (QC): 88 Assessment/Needs Patient tolerated treatment well. Demonstrates good overall mobility, transfers and gait given recent right toe surgery. Patient performs all bed mobility with Penn Laird, all transfers with SBA/CGA. He ambulates 250 feet with FWW, with CGA and verbal cues for posture, gait pattern, conservation of energy. Patient ascends/descends 4 steps x 3 reps with bilateral handrails. Patient ambulates 120 feet to room with FWW, with CGA. Patient in bed post treatment with all needs met, nursing notified, in the room and call light in reach. Rehab Potential: Good PT Supervisor Frame Assembly Goals Retirement Goals PT Supervisor Frame Assembly Goals Time Frame: Aug 15, 2022 Scoring Section J - Health Conditions 1. Rarely or not at all 2. Occasionally 3. Frequently 4. Almost constantly 8. Unable to answer Roll Left to Right (QC): 6 Sit to Lying (QC): 6 Lying-Sitting on Side/Bed(QC): 6 Sit to Stand (QC): 6 Chair/Xem-tk-Spltm Xfer(QC): 6 Toilet/Commode Transfer (QC): 6 Car Transfer (QC): 6 Does the Patient Walk: Yes Walk 10 feet (QC): 6 Walk 10ft-Uneven Surface(QC): 6 Walk 50ft with 2 Turns (QC): 6 Walk 150 ft (QC): 6 Gait Assistive Device: FWW Does the Pt use WC or Scooter?: No Wheel 50 feet with 2 turns (QC: 9 1 Step (curb) (QC): 6 4 Steps (QC): 6 12 Steps (QC): 6 Picking up an Object (QC): 6 Wheel 150 feet - 9 PT Plan Problem List Problem List: Activity Tolerance, Functional Strength, Safety, Balance, Gait, Transfer, Bed Mobility, ROM Treatment/Plan Treatment Plan: Continue Plan of Care Treatment Plan: Bed Mobility, Education, Functional Activity Orly, Functional Strength, Group Therapy, Gait, Safety, Therapeutic Exercise, Transfers Treatment Duration: Aug 29, 2022 Frequency: At least 5 of 7 days/Wk (IRF) Estimated Hrs Per Day: 1.5 hours per day Patient and/or Family Agrees t: Yes Safety Risks/Education Patient Education: Gait Training, Transfer Techniques, Steps Teaching Recipient: Patient, Family Teaching Methods: Demonstration, Discussion Response to Teaching: Verbalize Understanding, Return Demonstration Time/GCodes Time In: 1100 Time Out: 1130 Total Billed Treatment Time: 30 Total Billed Treatment Visit, EVm (10), Gait (20) CODI GUERRA PT Jul 24, 2022 11:50
[2022-07-24] MEDS ORDERED: COLCHICINE 0.6 MG (COLCRYS) TABLET PO SCH (12:00)
[2022-07-24] MEDS: inSUlin ASPART (NovoLOG) 1 UNIT/0.01 ML (CHARGE PER UNIT) SC SCH ×3 (12:18→21:42)
[2022-07-24] MEDS ORDERED: COLCHICINE 0.6 MG (COLCRYS) TABLET PO PRN (12:30)
--- NOTE | 2022-07-24 12:41 | CONSULTATION REPORT ---
DATE OF SERVICE: INPATIENT CONSULTATION ROOM: 413. SERVICE: Orthopedic surgery. CHIEF COMPLAINT: Left knee pain, swelling, stiffness. HISTORY OF PRESENT ILLNESS: This 71-year-old male was admitted for right foot problems. He had sustained a crush injury when a cow stepped on his foot and he later developed cellulitis and was subsequently treated with toe amputation. As he recovered from the surgery, he has had increasing difficulty with left knee symptoms and orthopedics was consulted for a possible left knee injection. PAST MEDICAL HISTORY: The patient has a history of type 2 diabetes, peripheral arterial disease, coronary artery disease and chronic kidney disease, neuropathy, hypertension, BPH, and COPD. He does have a pacemaker in place and has a history of cataract surgery, knee arthroscopy, neck mass excision, EGD and colonoscopy. He is a former smoker. CURRENT MEDICATIONS: Include allopurinol, amoxicillin, Plavix, Forxiga, iron sulfate, Percocet, pantoprazole, Entresto, spironolactone, Flomax, Ambien, glimepiride, lisinopril, metoprolol and potassium chloride. EXTREMITIES: Left knee examination today shows a mild effusion. No warmth, erythema or skin changes are noted. He holds the knee flexed 60 degrees for comfort and attempted range of motion markedly increased his pain. No gross muscle atrophy was noted, and sensation was grossly intact to light touch down to the mid tib-fib region. He did have mild tenderness over the medial compartment, but more significant tenderness to palpation was noted throughout the lateral joint line. REVIEW OF X-RAYS: Three views of the left knee from [facility] dated 07/23/2022 showed no acute changes or bony abnormalities. There was mild diffuse joint space narrowing noted on these nonweightbearing views. IMPRESSION: Left knee osteoarthritis. PLAN: Options were discussed with the patient including the possible need for outpatient followup. We have elected to proceed with an injection today. We discussed the risks of the injection including infection and elevated blood sugars under sterile conditions with alcohol and Betadine prep, the left knee was injected with 60 mg of Depo-Medrol and 2 mL each of 1% lidocaine and 0.25% bupivacaine. He tolerated the injection well and standard post-injection precautions were discussed, and ice treatments were recommended. A sterile dressing was applied to the injection site. He will otherwise advance activities as tolerated, and we will plan to most likely a recheck the patient on an outpatient basis. Thank you for the consult. Dr. Parsons is notified of the consult as well. Job ID: [id number] DocumentID: [id number] Dictated Date: 07/24/2022 11:10:03 Menagerie Caretaker Date: 07/24/2022 11:39:24 Dictated By: NAN SAXENA
--- NOTE | 2022-07-24 13:02 | Occupational Therapy Eval ---
OT Evaluation-General/PLF Medical Diagnosis Admission Date Jul 24, 2022 at 11:00 Medical Diagnosis: S/P AMPUTATION (RIGHT 3RD TOE) AND SEPSIS Onset Date: Jul 20, 2022 Therapy Diagnosis Therapy Diagnosis: Reduced ADL status Height/Weight Height (Feet): 5 Height (Inches): 11.00 Weight (Pounds): 195 Weight (Ounces): 11.2 Precautions Precautions/Isolations: Contact Isolation, Fall Prevention, Standard Precautions, Contact/Enteric Isolation Weight Bear Status Weight Bearing Restriction: Weight Bearing/Tolerated (with surgical shoe donned) Location Restriction: RT FOOT Referral Physician: Dr. Fam Referral Reason: Evaluation/Treatment Medical History Pertinent Medical History: CAD, DM, Heart Failure, HTN, Neuropathy, Renal Insufficiency Current History Pt is s/p 3rd toe amputation and sepsis and just admitted to [facility]U on 07/24/22. Pt lives with girlfriend in a single story home. He was independent with all ADLs and his girlfriend, Clarissa, does all cooking and cleaning. 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 He was using no AD at baseline. Reviewed History: Yes Social History Home: Single Level Current Living Status: Significant Other (girlfriend) Entry Into Home: Level Entry Steps Into Home: 0 Steps Inside Home: 1 ADL-Prior Level of Function SCALE: Activities may be completed with or without assistive devices. 2-Ibfpkrbanf-dszxrdm completes the activity by him/herself with no assistance from a helper. 5-Set-up or Clean-up Assistance-helper sets up or cleans up; patient completes activity. [place] assists only prior to or following the activity. 4-Supervision or Touching Assistance-helper provides verbal cues and/or touching /steadying and/or contact guard assistance as patient completes activity. Assistance may be provided throughout the activity or intermittently. 3-Partial/Moderate Assistance-helper does LESS THAN HALF the effort. [place] lifts, holds or supports trunk or limbs, but provides less than half the effort. 2-Substantial/Maximal Assistance-helper does MORE THAN HALF the effort. [place] lifts or holds trunk or limbs and provides more than half the effort. 5-Fvdnrafkt-ghvnir does ALL the effort. Patient does none of the effort to complete the activity. Or, the assistance of 2 or more helpers is required for the patient to complete the activity. If activity was not attempted, code reason: 7-Patient Refused. 9-Not Applicable-not attempted and the patient did not perform the activity before the current illness, exacerbation or injury. 10-Not Attempted due to Environmental Limitations-(lack of equipment, weather restraints, etc.). 88-Not Attempted due to Medical Conditions or Safety Concerns. Self Care: Independent Functional Cognition: Independent DME/Equipment: Bath Chair, Tub/Shower Drive Self: Yes OT Current Status Subjective Pt sitting in bed upon arrival. He agrees to therapy eval. Appearance Pt left laying in bed at end of session. All needs within reach. Mental Status/Objective Patient Orientation: Person, Place, Time, Situation Attachments: IV Current Glasses/Contacts: Yes Upper Extremity ROM WFL ~160 for R shoulder flexion - pt stated that its always been like that, as he hurt it a long time ago ~170 for L shoulder flexion Upper Extremity Strength minimally impaired cost control specialist strength 3-/5 at shoulders ADL-Treatment Eating (QC): 5 Oral Hygiene (QC): 4 Shower/Bathe Self (QC): 4 Upper Body Dressing (QC): 5 Lower Body Dressing (QC): 3 (min assist only due to bulky banage and elastic pant leg) On/Off Footwear (QC): 3 (min a to don surgical shoe) Toileting Hygiene (QC): 4 (per clinical judgment) Session 1: Pt reclined in bed at OT arrival. He refused a shower as he reports he wants his girlfriend to be present in order to "assist." Pt still agreeable to a sponge bath. Task completed majority in sitting. He stood only to wash tosin area/buttocks with CGA for safety. Slight hesitancy observed when removing UE serrano pport from walker but no LOB demonstrated. He was able to reach all body parts without physical assistance. Minimal assistance required to thread R foot into pants due to bulky bandage and elastic at bottom of pant leg. He stood again with CGA to manage clothing over his hips. He ambulated to/from bathroom with CGA and use of walker. He stood at sink to complete grooming tasks, supervision for safety. Other Treatments Session 2: Pt ambulated ~130 ft to/from therapy gym. Good use of walker during straight aways, but slightly deviates from walker when turning. Min cues needed for walker management with turns; fair follow through. Pt participated in functional activity with 2 lb wrist weights to improve dynamic standing balance, endurance, fine motor skills, and weakness. Pt able to tolerate ~4 min 30 seconds of standing before needing a rest break and c/o of lower back pain near kidneys. Pt has fair endurance tolerance during activities and needs adequate rest breaks. Education OT Patient Education: Correct positioning, Energy conservation, Modified ADL techniques, Purpose of tx/functional activities, Reviewed precautions, Rehab process, Safety issues, Transfer techniques Teaching Recipient: Patient Teaching Methods: Demonstration, Discussion Response to Teaching: Verbalize Understanding, Return Demonstration BIMS CAM BIMS Expression of Ideas and Wants: Without Difficulty Understanding Verbal Content: Understands Brief Interview/Mental Status: Yes IRF FANNY BIMS: IRF FANNY BIMS Response (Comments) Value Repitition of Three Words Three 3 Recalls Socks Yes, No Cue Required 2 Recalls Blue Yes, After Cueing (Color) 1 Recalls Bed No, Could Not Recall 0 Year Correct 3 Month Accurate Within 5 Days 2 Day Correct 1 Total [address] Mental [address] No Notes: 09/17 CAM Mental Status Change/Baseline: 0 Inattention: 0 Disorganized thinkin Altered level of consciousness: 0 OT Short Term Goals Short Term Goals Time Frame: Jul 28, 2022 Eatin Oral hygiene: 6 Toileting hygiene: 6 Shower/bathe self: 5 Upper body dressin Lower body dressin Putting on/taking off footwear: 4 OT Intermediate Goals Intermediate Goals Time Frame: Aug 05, 2022 (anticipate short stay ) Eating (QC): 6 Oral Hygiene (QC): 6 Toileting Hygiene (QC): 6 Shower/Bathe Self (QC): 6 Upper Body Dressing (QC): 6 Lower Body Dressing (QC): 6 On/Off Footwear (QC): 6 Additional Goals: 1-Demonstrate ADL Tasks, 2-Verbalize Understanding, 3- ImproveStrength/Orly 1=Demonstrate adherence to instructed precautions during ADL tasks. 2=Patient will verbalize/demonstrate understanding of assistive devices/modifications for ADL. 3=Patient will improve strength/tolerance for activity to enable patient to perform ADL's. OT Education/Plan Problem List/Assessment Assessment: Decreased Activ Tolerance, Impaired Funct Balance, Impaired Self- Care Skills Discharge Recommendations Plan/Recommendations: Continue POC Therapy Discharge Recommendati: Home & Family Treatment Plan/Plan of Care Treatment,Training & Education: Yes Patient would benefit from OT for education, treatment and training to promote independence in ADL's, mobility, safety and/or upper extremity function for ADL's. Plan of Care: ADL Retraining, Functional Mobility, Group Exercise/Act as Ind, Orthotic Fitting/Training, UE Funct Exercise/Act Treatment Duration: Aug 05, 2022 Frequency: At least 5 of 7 days/Wk (IRF) Estimated Hrs Per Day: 1.5 hours per day (75-90 min/day ) Agreement: Yes Time/GCodes Start Time: 11:30 (1305) Stop Time: 12:15 (1350) Total Time Billed (hr/min): 90 Billed Treatment Time 1st visit: ([id number]) EVL (10 min) ADL x2 (35 min) 2nd visit: ([id number]) FA x3 (45 min) Amna Zavala OT Jul 24, 2022 13:02
--- NOTE | 2022-07-24 13:11 | ST Cognitive Linguistic Eval ---
Speech Evaluation-General Medical Diagnosis S/P AMPUTATION (RIGHT 3RD TOE) AND SEPSIS Onset Date: Jul 20, 2022 Therapy Diagnosis Therapy Diagnosis: Intact Cognition Precautions Precautions: Fall Precautions/Isolations: Fall Prevention, Contact/Enteric Isolation Referral Referring Physician: Dr. Fam Reason for Referral: Evaluation/Treatment Medical History Pertinent Medical History: CAD, DM, Heart Failure, HTN, Neuropathy, Renal Insufficiency Reviewed History: Yes Social History Current Living Status: Spouse (girlfriend) Speech PLF-Current Status Subjective The patient was seated on the edge of the bed, awake and alert, upon entrance to his room by the clinician. The patient greeted the clinician appropriately and was agreeable to participation in the cognitive linguistic assessment. Language Eval: Auditory Comprehends Simple Yes/No Ques: Functional Indent/Objects Multiple Santos: Functional Ident/Pics in Multiple Santos: Functional Follows 1-Step Commands: Functional Follows General Conversations: Functional Language Eval: Verbal Language Completes Spontaneous Greeting: Functional Produces Auto, Serial Info: Functional Imitates Simple Words/Phrases: Functional Word Finding: Functional Requests Basic Needs: Functional States Basic Personal Info: Functional Cognitive Patient Orientation The patient was independently oriented to self, location, month, day of the week, and year. Objective Cognitive Domain Attention: WNL Memory: WNL Problem Solving: Functional Composite Severity Rating: WNL Objective Formal/Standardized Tests [facility] Mental Status Exam ([facility]) Results The patient demonstrated a result of +24/26 on the SLUMS correlating to a result within normal limits. Oral Motor/Speech Production The patient does not display dysarthria or apraxia of speech. The patient is 100% intelligible in known and unknown contexts. Impression The patient demonstrated intact neurocognitive skills. Speech Patient Assess Expression of Ideas/Wants: Expression (4) Understanding Verbal Content: Understands (4) Brief Interview-Mental Status: Yes Repetition of Three Words: Three (3) Temporal Orientation: Year: Correct (3) Temporal Orientation: Month: Accurate within 5 days(2) Temporal Orientation: Day: Correct (1) Recall : Wear to say "Sock": Yes, no cue required (2) Recall : Color: Yes, no cue required (2) Recall : Bed: Yes,after cueing (1) Memory/Recall Ability: Current season, Staff names and faces, That he or she is in a hsp/hsp unit Speech-Plan Treatment Plan Speech Therapy Treatment Plan: Discontinue ST Treatment Duration: Jul 24, 2022 Frequency: 1 time per week Estimated Hrs Per Day: .25 hour per day Rehab Potential: Good Safety Risks/Education Teaching Recipient: Patient Teaching Methods: Discussion Response to Teaching: Verbalize Understanding Education Topics Provided: Results, Recommendations, Plan of Care Time Speech Therapy Time In: 12:15 Speech Therapy Time Out: 12:35 Total Billed Time: 20 Billed Treatment Time 1, FILIBERTO SCALES [facility] Jul 24, 2022 13:11
--- NOTE | 2022-07-24 15:14 | Physical Therapy Daily Note ---
PT Daily Note-Current Subjective Patient in bed pre-tx, reports pain 6/10 in L knee, agrees to PT. Pain Section J - Health Conditions 1. Rarely or not at all 2. Occasionally 3. Frequently 4. Almost constantly 8. Unable to answer Pain Effect on Sleep: 4 Pain Interference with Therapy: 4 Pain Interference w/Day-to-Day: 4 Appearance Patient in bed post-tx, nurse call, tray, phone within reach, family member in room as well, all needs met. Mental Status Patient Orientation: Person, Place, Situation Transfers SCALE: Activities may be completed with or without assistive devices. 0-Dfsqznzyeu-qkeqdro completes the activity by him/herself with no assistance from a helper. 5-Set-up or Clean-up Assistance-helper sets up or cleans up; patient completes activity. [place] assists only prior to or following the activity. 4-Supervision or Touching Assistance-helper provides verbal cues and/or touching/steadying and/or contact guard assistance as patient completes activity. Assistance may be provided throughout the activity or intermittently. 3-Partial/Moderate Assistance-helper does LESS THAN HALF the effort. [place] lifts, holds or supports trunk or limbs, but provides less than half the effort. 2-Substantial/Maximal Assistance-helper does MORE THAN HALF the effort. [place] lifts or holds trunk or limbs and provides more than half the effort. 6-Lzkksgkkl-kxrbml does ALL the effort. Patient does none of the effort to complete the activity. Or, the assistance of 2 or more helpers is required for the patient to complete the activity. If activity was not attempted, code reason: 7-Patient Refused. 9-Not Applicable-not attempted and the patient did not perform the activity before the current illness, exacerbation or injury. 10-Not Attempted due to Environmental Limitations-(lack of equipment, weather restraints, etc.). 88-Not Attempted due to Medical Conditions or Safety Concerns. Sit to Lying (QC): 4 Lying to Sitting/Side of Bed(Q: 3 Sit to Stand (QC): 4 Chair/Erc-ox-Ztped Xfer(QC): 4 CGA for all except needed help swinging legs around when going lying to sit. Weight Bearing Right Lower Extremity: Right Weight Bearing/Tolerated Left Lower Extremity: Left Weight Bearing/Tolerated Gait Training Does the Patient Walk?: No and Walking Goal NOT indicated Distance: 120ft x2 Walk 10 feet (QC): 4 Walk 50 ft with 2 Turns(QC): 4 Gait Persons Needed: 1 CGA, patient needs gather himself after standing, walks quickly a little unsteady, has forward posturing when using FWW, good step length, decreased foot clearance. Wheelchair Training Does the Pt Use a Wheelchair?: No Exercises Standing: Hip Abduction Standing Reps: 10 Hip Flexion 10 reps each leg, Hip Extension 10 reps each leg NuStep Minutes: 15 NuStep Workload: 2 Treatments LE Strengthening, Gait Training, Standing EX Assessment Current Status: Fair Progress Patient just needs to wear a tennis shoe on L foot to better equalize leg length from foot orthotic on R foot. Patient progressing well with walking and strengthening LE. PT Shelter Goals Four Slide Machine Setter Goals PT Four Slide Machine Setter Goals Time Frame: Aug 15, 2022 Roll Left & Right (QC): 6 Sit to Lying (QC): 6 Lying-Sitting on Side/Bed(QC): 6 Sit to Stand (QC): 6 Chair/Rri-wh-Eopub Xfer(QC): 6 Toilet Transfer (QC): 6 Car Transfer (QC): 6 Does the Patient Walk: Yes Walk 10 feet (QC): 6 Walk 50ft with 2 Turns (QC): 6 Walk 150 ft (QC): 6 Walking 10ft on Uneven Surface: 6 1 Step (curb) (QC): 6 4 Steps (QC): 6 12 Steps (QC): 6 Picking up an Object (QC): 6 Does the Pt use WC or Scooter?: No Wheel 50 feet with 2 turns (QC: 9 Wheel 150 feet: 9 PT Plan Problem List Problem List: Activity Tolerance, Functional Strength, Safety, Balance, Gait, Transfer, Bed Mobility, ROM Treatment/Plan Treatment Plan: Continue Plan of Care Treatment Plan: Bed Mobility, Education, Functional Activity [place], Functional Strength, Group Therapy, Gait, Safety, Therapeutic Exercise, Transfers Treatment Duration: Aug 29, 2022 Frequency: At least 5 of 7 days/Wk (IRF) Estimated Hrs Per Day: 1.5 hours per day Patient and/or Family Agrees t: Yes Safety Risks/Education Patient Education: Gait Training, Transfer Techniques, Correct Positioning, Safety Issues Teaching Recipient: Patient Teaching Methods: Demonstration, Discussion Response to Teaching: Reinforcement Needed Time/GCodes Time In: 1430 Time Out: 1515 Total Billed Treatment Time: 45 Total Billed Treatment 1 visit EX 25min FA 20' EM RENE PT Jul 24, 2022 15:14
[2022-07-24] MEDS ORDERED: inSUlin ASPART (NovoLOG) 1 UNIT/0.01 ML (CHARGE PER UNIT) SC SCH (16:00)
[2022-07-24 16:37] VITALS: BP 136/63
[2022-07-24] MEDS: VANCOMYCIN INJECTION 1,000 MG in NS (IVPB) 250 ML IV SCH (18:01)
[2022-07-24] MEDS: RT-ALBUTEROL/IPRATROPIUM 3 ML (DUONEB) VIAL INH SCH (18:33)
[2022-07-24 20:50] VITALS: BP 151/72
[2022-07-24] MEDS: TAMSULOSIN 0.4 MG (FLOMAX) CAP PO SCH (21:43)
[2022-07-24] MEDS: SACUBITRIL/VALSARTAN 24/26 MG (ENTRESTO) TABLET PO SCH (21:43)
[2022-07-24] MEDS: ALLOPURINOL 100 MG (ZYLOPRIM) TAB PO SCH (21:43)
[2022-07-24] MEDS: ZOLPIDEM 5 MG (AMBIEN) TAB PO SCH (21:43)
[2022-07-24] MEDS: BETHANECHOL 25 MG (URECHOLINE) TAB PO SCH (21:43)
[2022-07-24] MEDS: FERROUS SULF 325 MG (IRON) TAB PO SCH (21:44)
[2022-07-24] MEDS: meTOproloL SUCCINATE 50 MG (TOPROL XL) TAB PO SCH (21:44)
[2022-07-24] MEDS: oxyCODONE/APAP 5/325MG (PERCOCET 5) TABLET PO SCH (21:44)
[2022-07-24] MEDS: polyethylene glycoL POWDER 17 GM (MIRALAX) PACK PO SCH (21:49)
[2022-07-24] MEDS: DOCUSATE SODIUM 100 MG (COLACE) CAP PO SCH ×2 (21:49)
[2022-07-24] MEDS: SENNOSIDES 8.6 MG (SENOKOT) TAB PO SCH (21:50)
[2022-07-24] MEDS: SENNA W/DOCUSATE (SENOKOT S) TABLET PO SCH (21:50)
[2022-07-25 05:35] LABS: BASOPHILS % (AUTO) 0 % (0-10); EOSINOPHILS % (AUTO) 0 % (0-10); HEMATOCRIT 32 % (40-54); HEMOGLOBIN 10.5 g/dL (13.3-17.7); LYMPHOCYTES % (AUTO) 7 % (12-44); MEAN CORPUSCULAR HEMOGLOBIN 30 pg (25-34); MEAN CORPUSCULAR HGB CONC 33 g/dL (32-36); MEAN CORPUSCULAR VOLUME 93 fL (80-99); MONOCYTES % (AUTO) 7 % (0-12); NEUTROPHILS # (AUTO) 11.5 10^3/uL (1.8-7.8); NEUTROPHILS % (AUTO) 84 % (42-75); PLATELET COUNT 299 10^3/uL (130-400); WHITE BLOOD COUNT 13.6 10^3/uL (4.3-11.0)
[2022-07-25 05:51] LABS: ALBUMIN 2.8 GM/DL (3.2-4.5)
[2022-07-25 05:52] LABS: POTASSIUM 4.2 MMOL/L (3.6-5.0)
[2022-07-25 05:53] LABS: CALCIUM 8.6 MG/DL (8.5-10.1)
[2022-07-25 05:54] LABS: TOTAL PROTEIN 6.1 GM/DL (6.4-8.2)
--- NOTE | 2022-07-25 05:54 | PM&R Progress Note ---
Subjective HPI/CC On Admission Date Seen by Provider: Jul 25, 2022 Time Seen by Provider: 12:30 Subjective/Events-last exam 07/25/2022: Doing well Walking around well Pain is well controlled IV antibiotics maintained Labs reviewed Creatinine at baseline Review of Systems General: Fatigue, Malaise Neurological: Weakness, Incoordination Objective Exam Vital Signs Vital Signs Date Time Temp Pulse Resp B/P (MAP) Pulse Ox O2 Delivery O2 Flow Rate FiO2 07/25/22 15:27 36.2 65 97 21 07/25/22 09:00 Room Air 07/25/22 08:38 0.00 07/25/22 07:30 18 132/64 (86) Capillary Refill : General Appearance: No Apparent Distress, WD/WN, Chronically ill HEENT: PERRL/EOMI, Normal ENT Inspection, Pharynx Normal Neck: Full Range of Motion, Normal Inspection, Non Tender, Supple, Carotid Bruit Respiratory: Chest Non Tender, Lungs Clear, Normal Breath Sounds, No Accessory Muscle Use, No Respiratory Distress Cardiovascular: Regular Rate, Rhythm, No Edema, No Gallop, No JVD, No Murmur, Normal Peripheral Pulses Gastrointestinal: Normal Bowel Sounds, No Organomegaly, No Pulsatile Mass, Non Tender, Soft Back: Normal Inspection, No CVA Tenderness, No Vertebral Tenderness Extremity: Normal Capillary Refill, Normal Inspection, Normal Range of Motion (Slow and decreased in general but especially left leg), Non Tender, No Calf Tenderness, No Pedal Edema Neurologic/Psychiatric: Alert, Oriented x3, Normal Mood/Affect, telegraph office route aide II-XII Norm as Tested, Abnormal Gait, Motor Weakness (Generalized weakness) Skin: Normal Color, Warm/Dry Lymphatic: No Adenopathy Results/Procedures Lab Laboratory Tests 07/25/22 05:25 Patient resulted labs reviewed. FIM Transfers Therapy Code Descriptions/Definitions Functional [place] Measure: 0=Not Assessed/NA 4=Minimal Assistance 1=Total Assistance 5=Supervision or Setup 2=Maximal Assistance 6=Modified [place] 3=Moderate Assistance 7=Complete IndependenceSCALE: Activities may be completed with or without assistive devices. 1-Xttleasvby-rtetyfg completes the activity by him/herself with no assistance from a helper. 5-Set-up or Clean-up Assistance-helper sets up or cleans up; patient completes activity. [place] assists only prior to or following the activity. 4-Supervision or Touching Assistance-helper provides verbal cues and/or touching/steadying and/or contact guard assistance as patient completes activity. Assistance may be provided throughout the activity or intermittently. 3-Partial/Moderate Assistance-helper does LESS THAN HALF the effort. [place] lifts, holds or supports trunk or limbs, but provides less than half the effort. 2-Substantial/Maximal Assistance-helper does MORE THAN HALF the effort. [place] lifts or holds trunk or limbs and provides more than half the effort. 1-Iitryskxk-zmiqcl does ALL the effort. Patient does none of the effort to complete the activity. Or, the assistance of 2 or more helpers is required for the patient to complete the activity. If activity was not attempted, code reason: 7-Patient Refused. 9-Not Applicable-not attempted and the patient did not perform the activity before the current illness, exacerbation or injury. 10-Not Attempted due to Environmental Limitations-(lack of equipment, weather restraints, etc.). 88-Not Attempted due to Medical Conditions or Safety Concerns. Roll Left to Right (QC): 6 Sit to Lying (QC): 4 Sit to Stand (QC): 4 Chair/Nah-uv-Tlbib Xfer(QC): 4 Car Transfer (QC): 4 Gait Training Does the Patient Walk?: No and Walking Goal NOT indicated Distance: 120ft x2 Walk 10 feet (QC): 4 Walk 50 ft with 2 Turns(QC): 4 Walk 150 ft (QC): 4 Walking 10ft/uneven surface-QC: 4 Gait Persons Needed: 1 Gait Assistive Device: FWW Wheelchair Training Does the Pt Use a Wheelchair?: No Wheel 50 ft with 2 turns (QC): 9 Wheel 150 ft (QC): 9 Stair Training #of Steps: 12 1 Step (curb) (QC): 4 4 Steps (QC): 4 12 Steps (QC): 4 Balance Picking up an Object (QC): 88 ADL-Treatment Eating (QC): 5 Oral Hygiene (QC): 4 Shower/Bathe Self (QC): 4 Upper Body Dressing (QC): 5 Lower Body Dressing (QC): 3 (min assist only due to bulky banage and elastic pant leg) On/Off Footwear (QC): 3 (min a to don surgical shoe) Toileting Hygiene (QC): 4 (per clinical judgment) Assessment/Plan Assessment and Plan Assess & Plan/Chief Complaint Assess & Plan/Chief Complaint 1. Sepsis -IV Zosyn 25mls/hr Q8H and Vancomycin 250mls/hr Q24H 2. Osteomyelitis and gangrene of 3rd digit on R foot -Had MRI confirming -Dr. Vela and Nicko will evaluate pt before proceeding with next steps in treatment plan 07/22: -successful amputation of 3 digit on R foot by Dr. Maharaj 3. NIDDM -takes metformin -Managed by Dr. Fam 4. Diabetic neuropathy 5. PAD -CT images from 12/16/21 demonstrated stenosis of varying degrees of the SFA and popliteal artery 6. HTN -controlled 7. CAD -cardiac cath 02/17/17 with stent placement due to near total occlusion of LAD 8. Ischemic Cardiomyopathy -Per cardiology notes, MPI on 04/16/20 showed inferoapical myocardial infarction with a small amt of tosin-infarct ischemia. Anteroapical akinesis. LVEF 30% 8. COPD -controlled 9. Severe MR -- S/P successful mitraclip placement by Dr. Vazquez at [facility] on 08/26/21 10. Chronic CHF -most recent ECHO showed LVEF 30-35%, grade 1 diastolic dysfunction, mild to mod MR, AoV thicknening (consistent with sclerosis), and PASP 20mmHg -MUGA on 05/21/22 was significant for ischemic cardiomyopathy with anteroapical akinesis and with left ventricular ejection fraction of 43%. 10. CKD IV 07/22: -moderate increase in BUN and Cr from yesterday, 30 and 2.2, but otherwise holding stable 11. Renal Artery Stenosis -CT images on 12/16/21 showed significant stenosis of L renal artery 12. H/o GI bleed -multiple hospitalizations requiring transfusions -Last EGD/colonoscopy 05/[address] Maharaj found moderate gastritis and mild chronic stage 1 external and internal hemorrhoids 13. Chronic Joint pain -managed by Dr. Fam 14. Carotid Artery Disease -noted on carotid u/s on 11/17/18 15. Gout -takes allopurinol at home and is continued in hospital 07/23: -L Knee gout flare >consult ortho for possible steroid injection >L Knee Xray >Start colchinine Plan: Consult Ortho for L Knee gout flare, possible steroid injection L knee XRAY Start Colchinine and continue allopurinol Continue IV abx Hold PT, will re-evaluate tomorrow due to knee pain limiting movement Pain medication prn Continue glycemic control Clinical Quality Measures Admission Status Admission Dx 1. Sepsis -IV Zosyn 25mls/hr Q8H and Vancomycin 250mls/hr Q24H 2. Osteomyelitis and gangrene of 3rd digit on R foot -Had MRI confirming -Dr. Vela and Nicko will evaluate pt before proceeding with next steps in treatment plan 3. NIDDM -takes metformin -Managed by Dr. Fam 4. Diabetic neuropathy 5. PAD -CT images from 12/16/21 demonstrated stenosis of varying degrees of the SFA and popliteal artery 6. HTN -controlled 7. CAD -cardiac cath 02/17/17 with stent placement due to near total occlusion of LAD 8. Ischemic Cardiomyopathy -Per cardiology notes, MPI on 04/16/20 showed inferoapical myocardial infarction with a small amt of tosin-infarct ischemia. Anteroapical akinesis. LVEF 30% 8. COPD -controlled 9. Severe MR -- S/P successful mitraclip placement by Dr. Vazquez at [facility] on 08/26/21 10. Chronic CHF -most recent ECHO showed LVEF 30-35%, grade 1 diastolic dysfunction, mild to mod MR, AoV thicknening (consistent with sclerosis), and PASP 20mmHg -MUGA on 05/21/22 was significant for ischemic cardiomyopathy with anteroapic al akinesis and with left ventricular ejection fraction of 43%. 10. CKD IV 11. Renal Artery Stenosis -CT images on 12/16/21 showed significant stenosis of L renal artery 12. H/o GI bleed -multiple hospitalizations requiring transfusions -Last EGD/colonoscopy 05/[address] Maharaj found moderate gastritis and mild chronic stage 1 external and internal hemorrhoids 13. Chronic Joint pain -managed by Dr. Fam 14. Carotid Artery Disease -noted on carotid u/s on 11/17/18 07/25/2022: Supportive care Vancomycin (1) Gangrene of toe of right foot (2) Knee pain Status: NICHOLAS Galarza DO Jul 25, 2022 05:54
[2022-07-25 05:56] LABS: BILIRUBIN,TOTAL 0.3 MG/DL (0.1-1.0)
[2022-07-25 05:58] LABS: CREATININE SERUM 1.99 MG/DL (0.60-1.30)
[2022-07-25 06:17] LABS: BAND NEUTROPHILS 5 %; LYMPHOCYTES % (MANUAL) 7 %; MONOCYTES % (MANUAL) 6 %; NEUTROPHILS % (MANUAL) 82 %; PLATELET ESTIMATE NORMAL
[2022-07-25 06:19] LABS: ANISOCYTOSIS SLIGHT
[2022-07-25] MEDS: PANTOPRAZOLE 40 MG (PROTONIX) TAB PO SCH (06:47)
[2022-07-25] MEDS: inSUlin ASPART (NovoLOG) 1 UNIT/0.01 ML (CHARGE PER UNIT) SC SCH ×4 (06:47→20:49)
[2022-07-25 07:30] VITALS: BP 132/64
[2022-07-25] MEDS: RT-ALBUTEROL/IPRATROPIUM 3 ML (DUONEB) VIAL INH SCH ×3 (08:38→21:38)
[2022-07-25 08:47] VITALS: BP 132/64
[2022-07-25] MEDS: SACUBITRIL/VALSARTAN 24/26 MG (ENTRESTO) TABLET PO SCH ×2 (09:30→21:04)
[2022-07-25] MEDS: ALLOPURINOL 100 MG (ZYLOPRIM) TAB PO SCH ×2 (09:30→21:03)
[2022-07-25] MEDS: oxyCODONE/APAP 5/325MG (PERCOCET 5) TABLET PO SCH ×2 (09:30→21:03)
[2022-07-25] MEDS: meTOproloL SUCCINATE 50 MG (TOPROL XL) TAB PO SCH ×2 (09:30→21:05)
[2022-07-25] MEDS: DOCUSATE SODIUM 100 MG (COLACE) CAP PO SCH ×4 (09:31→20:46)
[2022-07-25] MEDS: SPIRONOLACTONE 25 MG (ALDACTONE) TAB PO SCH (09:31)
[2022-07-25] MEDS: polyethylene glycoL POWDER 17 GM (MIRALAX) PACK PO SCH ×2 (09:31→20:47)
[2022-07-25] MEDS: SENNA W/DOCUSATE (SENOKOT S) TABLET PO SCH ×2 (09:32→20:47)
[2022-07-25] MEDS: SENNOSIDES 8.6 MG (SENOKOT) TAB PO SCH ×2 (09:32→20:47)
--- NOTE | 2022-07-25 12:21 | Physical Therapy Daily Note ---
PT Daily Note-Current Subjective Pt sitting in recliner upon arrival. Pt agrees to PT. Pt reports needing EX for get stronger and he walks fine. Pain Location: No Pain Reported Section J - Health Conditions 1. Rarely or not at all 2. Occasionally 3. Frequently 4. Almost constantly 8. Unable to answer Pain Effect on Sleep: 4 Pain Interference with Therapy: 4 Pain Interference w/Day-to-Day: 4 Mental Status Patient Orientation: Person, Place, Situation Transfers SCALE: Activities may be completed with or without assistive devices. 6-Nqzydxevgn-qkofyfu completes the activity by him/herself with no assistance from a helper. 5-Set-up or Clean-up Assistance-helper sets up or cleans up; patient completes activity. [place] assists only prior to or following the activity. 4-Supervision or Touching Assistance-helper provides verbal cues and/or touching/steadying and/or contact guard assistance as patient completes activity. Assistance may be provided throughout the activity or intermittently. 3-Partial/Moderate Assistance-helper does LESS THAN HALF the effort. [place] lifts, holds or supports trunk or limbs, but provides less than half the effort. 2-Substantial/Maximal Assistance-helper does MORE THAN HALF the effort. [place] lifts or holds trunk or limbs and provides more than half the effort. 2-Ljwzyhbpx-ksftht does ALL the effort. Patient does none of the effort to complete the activity. Or, the assistance of 2 or more helpers is required for the patient to complete the activity. If activity was not attempted, code reason: 7-Patient Refused. 9-Not Applicable-not attempted and the patient did not perform the activity before the current illness, exacerbation or injury. 10-Not Attempted due to Environmental Limitations-(lack of equipment, weather restraints, etc.). 88-Not Attempted due to Medical Conditions or Safety Concerns. Weight Bearing Right Lower Extremity: Right Weight Bearing/Tolerated Left Lower Extremity: Left Weight Bearing/Tolerated Exercises Supine Ex: Ankle pumps, Quad Set, Glut sets, Heel Slides, Short Arc Quads, Straight leg raise, Hip abd/add Supine Reps: 10 Seated Therapy Exercises: Ankle pumps, Long arc quads, Hip flexion, Hip abd/add Seated Reps: 10 Treatments Pt is issued and reviews written HEP for Supine & Seated Ex. Pt resting in recliner awaiting lunch at end of tx. All needs met, call light in hand. Assessment Current Status: Good Progress Pt egrman. tx. PT Fdc Goals Production Packager Goals PT Production Packager Goals Time Frame: Aug 15, 2022 Roll Left & Right (QC): 6 Sit to Lying (QC): 6 Lying-Sitting on Side/Bed(QC): 6 Sit to Stand (QC): 6 Chair/Efd-ov-Objnj Xfer(QC): 6 Toilet Transfer (QC): 6 Car Transfer (QC): 6 Does the Patient Walk: Yes Walk 10 feet (QC): 6 Walk 50ft with 2 Turns (QC): 6 Walk 150 ft (QC): 6 Walking 10ft on Uneven Surface: 6 1 Step (curb) (QC): 6 4 Steps (QC): 6 12 Steps (QC): 6 Picking up an Object (QC): 6 Does the Pt use WC or Scooter?: No Wheel 50 feet with 2 turns (QC: 9 Wheel 150 feet: 9 PT Plan Problem List Problem List: Activity Tolerance Treatment/Plan Treatment Plan: Continue Plan of Care Treatment Plan: Bed Mobility, Education, Functional Activity [place], Functional Strength, Group Therapy, Gait, Safety, Therapeutic Exercise, Transfers Treatment Duration: Aug 29, 2022 Frequency: At least 5 of 7 days/Wk (IRF) Estimated Hrs Per Day: 1.5 hours per day Patient and/or Family Agrees t: Yes Safety Risks/Education Patient Education: Issued Written HEP Teaching Recipient: Patient Teaching Methods: Discussion Response to Teaching: Verbalize Understanding Time/GCodes Time In: 1125 Time Out: 1140 Total Billed Treatment Time: 15 Total Billed Treatment 1, EX (15m) SANDRA GEIGER PTA Jul 25, 2022 12:21
--- NOTE | 2022-07-25 14:22 | Progress Note - Cardiology ---
Cardiology SOAP Progress Note Subjective: No cp or palp or syncope or shortness of breath No n/v/d Gen weakness and malaise No focal weakness No swelling Objective: I&O/Vital Signs 07/25/22 07/25/22 07/25/22 07/25/22 07:30 08:38 08:47 09:00 Temp 36.2 36.2 Pulse 62 65 Resp 18 B/P (MAP) 132/64 (86) Pulse Ox 94 97 97 O2 Delivery Room Air Room Air Room Air O2 Flow Rate 0.00 FiO2 21 Weight (Pounds): 195 Weight (Ounces): 11.2 Weight (Calculated Kilograms): 88.604713 Constitutional: AAO x 3, well-developed, well-nourished Respiratory: No accessory muscle use; other (good, bilat air entry) Cardiovascular: regular rate-rhythm, S1 and S2, systolic murmur (soft AMAURI at card base) Gastrointestional: No tender; soft; No guarding, No rebound; audible bowel sounds Extremities: No clubbing, No cyanosis, No significant edema Neurologic/Psychiatric: oriented x 3, other (moves all limbs equally) Skin: warm/dry; No cyanosis, No rash on exposed areas, No ulcerations on exposed areas Results/Procedures: Labs Laboratory Tests 07/24/22 15:29: Glucometer 223H 07/24/22 20:45: Glucometer 190H 07/25/22 05:25: White Blood Count 13.6H, Red Blood Count 3.49L, Hemoglobin 10.5L, Hematocrit 32L , Mean Corpuscular Volume 93, Mean Corpuscular Hemoglobin 30, Mean Corpuscular Hemoglobin Concent 33, Red Cell Distribution Width 13.7, Platelet Count 299, Mean Platelet Volume 11.0, Immature Granulocyte % (Auto) 1, Neutrophils (%) (Auto) 84H, Lymphocytes (%) (Auto) 7L, Monocytes (%) (Auto) 7, Eosinophils (%) (Auto) 0, Basophils (%) (Auto) 0, Neutrophils # (Auto) 11.5H, Lymphocytes # (Auto) 1.0, Monocytes # (Auto) 1.0, Eosinophils # (Auto) 0.0, Basophils # (Auto) 0.0, Immature Granulocyte # (Auto) 0.2H, Neutrophils % (Manual) 82, Lymphocytes % (Manual) 7, Monocytes % (Manual) 6, Band Neutrophils 5, Platelet Estimate NORMAL, Anisocytosis SLIGHT, Blood Morphology Comment , Sodium Level 141, Potassium Level 4.2, Chloride Level 112H, Carbon Dioxide Level 19L, Anion Gap 10, Blood Urea Nitrogen 39H, Creatinine 1.99H, Estimat Glomerular Filtration Rate 35, BUN/Creatinine Ratio 20, Glucose Level 255H, Calcium Level 8.6, Corrected Calcium 9.6, Total Bilirubin 0.3, Aspartate Amino Transf (AST/SGOT) 72H, Alanine Aminotransferase (ALT/SGPT) 32, Alkaline Phosphatase 105, Total Protein 6.1L, Albumin 2.8L 07/25/22 05:54: Glucometer 218H 07/25/22 11:00: Glucometer 114H Laboratory Tests 07/25/22 05:25 A/P: Assessment: 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 Maharaj and Dr. Fam CAD and ischemic cardiomyopathy: - Card cath of 02/09/17: near-total occlusion of LAD treated with overlapping Resolute 2.25x30 and 2.5x14 stents and both postdilated with a 2.75 mm balloon to 2.9 mm diameter; LCX and RCA had relatively mod disease; elevated LVEDP - MPI of April 16, 2020 showed inferoapical myocardial infarction with a small amt of tosin-infarct ischemia. Anteroapical akinesis. LVEF 30%. Chronic systolic and diastolic CHF: - due to ischemic cardiomyopathy and severe mitral regurg - Echo 02/17/21: LVEF 30-35%, mod cardiomegaly (LV, RA, LA), mod to sev MR, AoV sclerosis w/o stenosis, mild MR, PASP 45-50 mmHg - Echocardiogram of 12-25-21 showed mod concentric hypertrophy. LVEF 25-30%. Akinesis of the anterior myocardium. LA is mod dilated. RA is mildly dilated. Mod MR, directed eccentrically. AoV thickening, consistent with sclerosis with mild AoR. A trivial free flowing pericardial effusion is identified. - Echo for 02/25/22 (as part of participation in MitraClip trial at [facility]): LVEF 37%, [place] device with mild residual MR, severe LV dilatation, global hypo, apical akinesis - Echocardiogram of 03-19-22 showed LVEF 30-35%. Akinesis of the apical myocardium. Grade 1 diastolic dysfunction. Mild to mod MR. AoV thickening, consistent with sclerosis. Trivial regurg. PASP 20 mmHg - MUGA 05-21-22 showed: Ischemic cardiomyopathy with anteroapical akinesis and with left ventricular ejection fraction of 43%. Severe MR: - Echocardiogram from 02-17-21 showed mod to severe MR - Referred to Dr. Rodriguez per pt request - advised he keep referral to [facility] - Referred to [facility]: Dr. Garg at [facility] has offered a minimally invasive mitral valve replacement, but the pt request an even less invasive approach and desires a mitraclip - S/P successful mitraclip placement by Dr. Vazquez at [facility] on 08-26-21 Hypertension: H/o GI bleed : - May 2018 hosp with GI bleed requiring multiple transfusions. - Endoscopy by Dr Maharaj in early May 2018: reflux esophagitis (grade 2), no HH, moderate gastritis with small antral erosion.mild chronic stage 1 ext and int hemorrhoids. - Long hosp (April and May 2018) with diffuse myopathy and weakness following GI bleed and blood transfusions. Thrombocytosis during hosp of May 2018, most likely reactive, followed and treated by Dr Maher Chronic joint pains of unclear etiology: - gout vs RMSF vs statins. DM II: - followed by PCP H/o tobaccoism: - Quit tobacco use in or around 1999 CKD IV PFT of March 31, 2017: spirometry is WNL Carotid dz: Mild carotid arterial disease on carotid u/s of 11/17/18 No AAA on AAA screening scan of 11/17/18 PAD and renal artery stenosis - CTA images of 12-16-2021 (following abnormal segmentals) demonstrate diffuse atherosclerotic plaquing of the aorta without evidence of aneurysm. There is a significant left renal artery stenosis. There are stenoses of the origins of the profunda femoris arteries on the right side. There is moderate stenosis in the distal SFA on the right side and high-grade stenosis of the junction of the right SFA and popliteal artery. There is two vessel runoff on the right side. On the left side, there is high-grade stenosis of the lower SFA with two vessel runoff distally. H/o gout Plan: * Complex management due to multiple comorbidities * Continue current regimen * Monitor labs from time to time * Dr Fam managing gout and other noncardiac issues RHYS HINKLE MD [facility] Jul 25, 2022 14:22
[2022-07-25 15:27] VITALS: BP 132/64
[2022-07-25] MEDS: CATHETER FLUSH 10 ML SYR IVP PRN ×2 (15:32→18:03)
[2022-07-25] MEDS ORDERED: RT-ALBUTEROL/IPRATROPIUM 3 ML (DUONEB) VIAL INH PRN (17:00)
[2022-07-25] MEDS: VANCOMYCIN INJECTION 1,000 MG in NS (IVPB) 250 ML IV SCH (18:03)
[2022-07-25 20:37] VITALS: BP 116/64
[2022-07-25] MEDS: FERROUS SULF 325 MG (IRON) TAB PO SCH (21:03)
[2022-07-25] MEDS: ZOLPIDEM 5 MG (AMBIEN) TAB PO SCH (21:03)
[2022-07-25] MEDS: BETHANECHOL 25 MG (URECHOLINE) TAB PO SCH (21:04)
[2022-07-25] MEDS: CATHETER FLUSH 10 ML SYR IVP SCH (21:04)
[2022-07-25] MEDS: TAMSULOSIN 0.4 MG (FLOMAX) CAP PO SCH (21:04)
--- NOTE | 2022-07-26 05:41 | PM&R Progress Note ---
Subjective HPI/CC On Admission Date Seen by Provider: Jul 26, 2022 Time Seen by Provider: 13:00 Subjective/Events-last exam 07/26/2022: Patient doing well Will go for a day pass today Vancomycin tolerated 07/25/2022: Doing well Walking around well Pain is well controlled IV antibiotics maintained Labs reviewed Creatinine at baseline Review of Systems Musculoskeletal: leg pain, foot pain Objective Exam Vital Signs Vital Signs Date Time Temp Pulse Resp B/P (MAP) Pulse Ox O2 Delivery O2 Flow Rate FiO2 07/26/22 09:00 Room Air 07/26/22 08:20 95 07/26/22 08:00 36.2 77 18 140/66 (90) 07/25/22 15:27 21 07/25/22 08:38 0.00 Capillary Refill : General Appearance: No Apparent Distress, WD/WN, Chronically ill HEENT: PERRL/EOMI, Normal ENT Inspection, Pharynx Normal Neck: Full Range of Motion, Normal Inspection, Non Tender, Supple, Carotid Bruit Respiratory: Chest Non Tender, Lungs Clear, Normal Breath Sounds, No Accessory Muscle Use, No Respiratory Distress Cardiovascular: Regular Rate, Rhythm, No Edema, No Gallop, No JVD, No Murmur, Normal Peripheral Pulses Gastrointestinal: Normal Bowel Sounds, No Organomegaly, No Pulsatile Mass, Non Tender, Soft Back: Normal Inspection, No CVA Tenderness, No Vertebral Tenderness Extremity: Normal Capillary Refill, Normal Inspection, Normal Range of Motion (Slow and decreased in general but especially left leg), Non Tender, No Calf Tenderness, No Pedal Edema Neurologic/Psychiatric: Alert, Oriented x3, Normal Mood/Affect, relay assembler II-XII Norm as Tested, Abnormal Gait, Motor Weakness (Generalized weakness) Skin: Normal Color, Warm/Dry Lymphatic: No Adenopathy Results/Procedures Lab Patient resulted labs reviewed. FIM Transfers Therapy Code Descriptions/Definitions Functional [place] Measure: 0=Not Assessed/NA 4=Minimal Assistance 1=Total Assistance 5=Supervision or Setup 2=Maximal Assistance 6=Modified [place] 3=Moderate Assistance 7=Complete IndependenceSCALE: Activities may be completed with or without assistive devices. 1-Znblbznnmo-evckmqc completes the activity by him/herself with no assistance from a helper. 5-Set-up or Clean-up Assistance-helper sets up or cleans up; patient completes activity. [place] assists only prior to or following the activity. 4-Supervision or Touching Assistance-helper provides verbal cues and/or touching/steadying and/or contact guard assistance as patient completes activity. Assistance may be provided throughout the activity or intermittently. 3-Partial/Moderate Assistance-helper does LESS THAN HALF the effort. [place] lifts, holds or supports trunk or limbs, but provides less than half the effort. 2-Substantial/Maximal Assistance-helper does MORE THAN HALF the effort. [place] lifts or holds trunk or limbs and provides more than half the effort. 2-Vnkcfyvxc-ytbzpi does ALL the effort. Patient does none of the effort to complete the activity. Or, the assistance of 2 or more helpers is required for the patient to complete the activity. If activity was not attempted, code reason: 7-Patient Refused. 9-Not Applicable-not attempted and the patient did not perform the activity before the current illness, exacerbation or injury. 10-Not Attempted due to Environmental Limitations-(lack of equipment, weather restraints, etc.). 88-Not Attempted due to Medical Conditions or Safety Concerns. Roll Left to Right (QC): 6 Sit to Lying (QC): 4 Sit to Stand (QC): 4 Chair/[place] Xfer(QC): 4 Car Transfer (QC): 4 Gait Training Does the Patient Walk?: No and Walking Goal NOT indicated Distance: 120ft x2 Walk 10 feet (QC): 4 Walk 50 ft with 2 Turns(QC): 4 Walk 150 ft (QC): 4 Walking 10ft/uneven surface-QC: 4 Gait Persons Needed: 1 Gait Assistive Device: FWW Wheelchair Training Does the Pt Use a Wheelchair?: No Wheel 50 ft with 2 turns (QC): 9 Wheel 150 ft (QC): 9 Stair Training #of Steps: 12 1 Step (curb) (QC): 4 4 Steps (QC): 4 12 Steps (QC): 4 Balance Picking up an Object (QC): 88 ADL-Treatment Eating (QC): 5 Oral Hygiene (QC): 4 Shower/Bathe Self (QC): 4 Upper Body Dressing (QC): 5 Lower Body Dressing (QC): 3 (min assist only due to bulky banage and elastic pant leg) On/Off Footwear (QC): 3 (min a to don surgical shoe) Toileting Hygiene (QC): 4 (per clinical judgment) Assessment/Plan Assessment and Plan Assess & Plan/Chief Complaint Assess & Plan/Chief Complaint 1. Sepsis -IV Zosyn 25mls/hr Q8H and Vancomycin 250mls/hr Q24H 2. Osteomyelitis and gangrene of 3rd digit on R foot -Had MRI confirming -Dr. Vela and Nicko will evaluate pt before proceeding with next steps in treatment plan 07/22: -successful amputation of 3 digit on R foot by Dr. Maharaj 3. NIDDM -takes metformin -Managed by Dr. Fam 4. Diabetic neuropathy 5. PAD -CT images from 12/16/21 demonstrated stenosis of varying degrees of the SFA and popliteal artery 6. HTN -controlled 7. CAD -cardiac cath 02/17/17 with stent placement due to near total occlusion of LAD 8. Ischemic Cardiomyopathy -Per cardiology notes, MPI on 04/16/20 showed inferoapical myocardial infar ction with a small amt of tosin-infarct ischemia. Anteroapical akinesis. LVEF 30% 8. COPD -controlled 9. Severe MR -- S/P successful mitraclip placement by Dr. Vazquez at [facility] on 08/26/21 10. Chronic CHF -most recent ECHO showed LVEF 30-35%, grade 1 diastolic dysfunction, mild to mod MR, AoV thicknening (consistent with sclerosis), and PASP 20mmHg -MUGA on 05/21/22 was significant for ischemic cardiomyopathy with anteroapical akinesis and with left ventricular ejection fraction of 43%. 10. CKD IV 07/22: -moderate increase in BUN and Cr from yesterday, 30 and 2.2, but otherwise holding stable 11. Renal Artery Stenosis -CT images on 12/16/21 showed significant stenosis of L renal artery 12. H/o GI bleed -multiple hospitalizations requiring transfusions -Last EGD/colonoscopy 05/[address] Maharaj found moderate gastritis and mild chronic stage 1 external and internal hemorrhoids 13. Chronic Joint pain -managed by Dr. Fam 14. Carotid Artery Disease -noted on carotid u/s on 11/17/18 15. Gout -takes allopurinol at home and is continued in hospital 07/23: -L Knee gout flare >consult ortho for possible steroid injection >L Knee Xray >Start colchinine Plan: Consult Ortho for L Knee gout flare, possible steroid injection L knee XRAY Start Colchinine and continue allopurinol Continue IV abx Hold PT, will re-evaluate tomorrow due to knee pain limiting movement Pain medication prn Continue glycemic control Clinical Quality Measures Admission Status Admission Dx 1. Sepsis -IV Zosyn 25mls/hr Q8H and Vancomycin 250mls/hr Q24H 2. Osteomyelitis and gangrene of 3rd digit on R foot -Had MRI confirming -Dr. Vela and Nicko will evaluate pt before proceeding with next steps in treatment plan 3. NIDDM -takes metformin -Managed by Dr. Fam 4. Diabetic neuropathy 5. PAD -CT images from 12/16/21 demonstrated stenosis of varying degrees of the SFA and popliteal artery 6. HTN -controlled 7. CAD -cardiac cath 02/17/17 with stent placement due to near total occlusion of LAD 8. Ischemic Cardiomyopathy -Per cardiology notes, MPI on 04/16/20 showed inferoapical myocardial infarction with a small amt of tosin-infarct ischemia. Anteroapical akinesis. LVEF 30% 8. COPD -controlled 9. Severe MR -- S/P successful mitraclip placement by Dr. Vazquez at [facility] on 10/26/20 10. Chronic CHF -most recent ECHO showed LVEF 30-35%, grade 1 diastolic dysfunction, mild to mod MR, AoV thicknening (consistent with sclerosis), and PASP 20mmHg -MUGA on 05/21/22 was significant for ischemic cardiomyopathy with anteroapical akinesis and with left ventricular ejection fraction of 43%. 10. CKD IV 11. Renal Artery Stenosis -CT images on 12/16/21 showed significant stenosis of L renal artery 12. H/o GI bleed -multiple hospitalizations requiring transfusions -Last EGD/colonoscopy 05/[address] Maharaj found moderate gastritis and mild chronic stage 1 external and internal hemorrhoids 13. Chronic Joint pain -managed by Dr. Fam 14. Carotid Artery Disease -noted on carotid u/s on 11/17/18 07/25/2022: Supportive care Vancomycin 07/26/2022: Day pass today Vanc (1) Gangrene of toe of right foot (2) Knee pain Status: NICHOLAS Galarza DO Jul 26, 2022 05:41
--- NOTE | 2022-07-26 05:41 | Individualized Plan of Care ---
Individualized Plan of Care Rehab Nursing IPOC Order Admission Date Jul 24, 2022 at 11:00 Current Orders Orders Admission Order(Inpt,Obs,Sdc) (07/24/22 10:51) Vital Signs: Per Unit Policy ( ,16,00 (07/24/22 10:51) Danny Sampson (07/24/22 10:51) Sequential Compression Device (07/24/22 10:51) Supervisor Agricultural Education-Inpt Rehab Con (07/24/22 10:51) Rehab Nursing Orders-Ipoc (07/24/22 10:51) Physical Therapy Rehab Orders (07/24/22 10:51) Occupational Therapy Rehab Ord (07/24/22 10:51) Speech Therapy Rehab Orders (07/24/22 10:51) Cbc With Automated Diff (07/25/22 06:00) Comprehensive Metabolic Panel (07/25/22 06:00) Precautions (Aru) (07/24/22 10:51) Weekly Weight WEEK (07/24/22 10:51) Rehab-Intensity Of Therapy (07/24/22 10:51) Initiate Admission Nursing Pro .admission (07/24/22 10:51) Alprazolam Tablet (Xanax Tablet) (07/24/22 11:00) Calcium Carbonate Chew Tablet (Antacid C (07/24/22 11:00) Diphenhydramine Tablet (Benadryl Tablet) (07/24/22 11:00) Docusate Sodium Capsule (Colace Capsule) (07/24/22 21:00) Docusate Sodium Capsule (Colace Capsule) (07/24/22 11:00) Bisacodyl Suppository (Dulcolax Supposit (07/24/22 11:00) Lactulose Oral Solution (Enulose Oral So (07/24/22 11:00) Na Phos/Na Biphos Enema (Fleet Enema Mane (07/24/22 11:00) Guaifenesin/Codeine Syrup (Robitussin Ac (07/24/22 11:00) Loperamide Tablet (Imodium Tablet) (07/24/22 11:00) Melatonin Tablet (Melatonin Tablet) (07/24/22 11:00) Polyethylene Glycol Powder Pkt (Miralax (10/21/22 21:00) Ondansetron Oral Dissolve Tab (Zofran (07/24/22 11:00) Senna S Tablet (Senokot S Tablet) (07/24/22 21:00) Acetaminophen Tablet/Caplet (Tylenol T (07/24/22 11:00) Code/Resuscitation (07/24/22 10:51) Initiate Admission Nursing Pro .admission (07/24/22 10:51) Admission Arrival Bed Request (07/24/22 11:10) Isolation Central Supply Req (07/24/22 11:26) Cho 75g/M 0snack (21-2400 Julius) (07/24/22 Lunch) Accucheck Achs ACHS (07/24/22 11:40) Dressing Order (Intervention) DAILY (07/24/22 11:40) Albuterol/Ipra Inhalation Soln (Duoneb I (07/24/22 11:45) Allopurinol Tablet (Zyloprim Tablet) (07/24/22 21:00) Diphenhydramine Injection (Benadryl Inje (07/24/22 11:45) Diphenhydramine Tablet (Benadryl Tablet) (07/24/22 11:45) Bethanechol Tablet (Urecholine Tablet) (07/24/22 21:00) Docusate Sodium Capsule (Colace Capsule) (07/24/22 21:00) Colchicine Tablet (Colcrys Tablet) (07/24/22 12:00) Bisacodyl Suppository (Dulcolax Supposit (07/24/22 11:45) Lactulose Oral Solution (Enulose Oral So (07/24/22 11:45) Ferrous Sulfate Tablet (Feosol Tablet) (07/24/22 21:00) Hydromorphone Injection (Dilaudid Inject (07/24/22 11:45) Heparin Injection (Heparin Injection) (07/24/22 22:00) Melatonin Tablet (Melatonin Tablet) (07/24/22 11:45) Magnesium Hydroxide Oral Susp (Mom Oral (07/24/22 11:45) Polyethylene Glycol Powder Pkt (Miralax (07/24/22 11:45) Antacid Suspension (Mylanta Suspension (07/24/22 11:45) Insulin Aspart (Novolog) (Novolog (Charg (07/24/22 16:00) Pantoprazole Tablet (Protonix Tablet) (07/25/22 07:00) Sacubitril/Valsartan 24/26 Mg (Entresto (07/24/22 21:00) Sennosides Tablet (Senokot Tablet) (07/24/22 21:00) Spironolactone Tablet (Aldactone Tablet) (07/25/22 09:00) Tamsulosin Capsule (Flomax Capsule) (07/24/22 21:00) Calcium Carbonate Chew Tablet (Antacid C (07/24/22 11:45) Acetaminophen Tablet/Caplet (Tylenol T (07/24/22 11:45) Vancomycin Injection (Vancomycin Injecti (07/24/22 19:00) Ondansetron Injection (Zofran Injectio (07/24/22 11:45) Ondansetron Oral Dissolve Tab (Zofran (07/24/22 11:45) Zolpidem Tablet (Ambien Tablet) (07/24/22 21:00) Metoprolol Succinate (Xl) Tab (Toprol Xl (07/24/22 21:00) Oxycodone Immediate Rel Tablet (Oxyir Ta (07/24/22 11:45) Oxycodone/Apap 5/325mg Tablet (Percocet (07/24/22 21:00) Consult Cardiology (07/24/22 11:40) Consult General Surgery (07/24/22 11:40) Insulin Aspart (Novolog) (Novolog (Charg (07/24/22 11:00) Colchicine Tablet (Colcrys Tablet) (07/24/22 12:30) Iv Convert To Heplock (Order) (07/24/22 12:28) Trough Order (Trough Order-Pharmacy Orde (07/27/22 18:00) Vancomycin,Trough (07/27/22 18:00) Patient Visit (07/24/22 ) Speech Sound Lang Comp (07/24/22 ) Treat. Speech/Lang/Voice (07/24/22 ) Patient Visit (07/24/22 ) Pt Eval Moderate Complexity (07/24/22 ) Gait Training, Ea 15 Min (07/24/22 ) Patient Visit (07/24/22 ) Exercise Therap, Ea 15 Min (07/24/22 ) Functional Activities, Ea 15 (07/24/22 ) Albuterol/Ipra Inhalation Soln (Duoneb I (07/24/22 19:00) Manual Differential (07/25/22 05:25) Patient Visit (07/25/22 ) Exercise Therap, Ea 15 Min (07/25/22 ) Sodium Chloride Flush (Catheter Flush Sy (07/25/22 15:15) Sodium Chloride Flush (Catheter Flush Sy (07/25/22 22:00) Mat Initiate Protocol (07/25/22 15:27) Albuterol/Ipra Inhalation Soln (Duoneb I (07/25/22 17:00) Albuterol/Ipra Inhalation Soln (Duoneb I (07/25/22 21:00) Home Pass/Therapeutic-Rehab (07/25/22 15:48) Rehab Nursing Orders: Ongoing Assess. of Cognitive Status, Ongoing Assess. of Function Status, Bladder Management, Bladder Scan, Bladder Training, Bowel Management, Bowel Training, Disease Management & Educaiton, DVT Prophylaxis, Fall Prevention, Fluid/Electrolyte/Nutrition Mgmt, Infection Prevention, Medication Management & Education, Management of Risks & Complications, Management of Skin Intergrity, Nutrition Management, Pain Management, Patient/Family Support, Safety Management, Weight Bearing Precaution, Wound Management Intensity of Therapy to be met Patient to be seen: Min.3h per day/5 of 7d PT IPOC Problem List: Activity Tolerance Treatment Plan: Continue Plan of Care Bed Mobility, Education, Functional Activity Orly, Functional Strength, Group Therapy, Gait, Safety, Therapeutic Exercise, Transfers Treatment Duration: Aug 29, 2022 Frequency: At least 5 of 7 days/Wk (IRF) Estimated Hrs Per Day: 1.5 hours per day OT IPOC Problems: Decreased Activ Tolerance, Impaired Funct Balance, Impaired Self-Care Skills OT Treatment, Training and Edu: Yes Plan of Care: ADL Retraining, Functional Mobility, Group Exercise/Act as Ind, Orthotic Fitting/Training, UE Funct Exercise/Act Treatment Duration: Aug 05, 2022 Frequency: At least 5 of 7 days/Wk (IRF) Estimated Hrs Per Day: 1.5 hours per day (75-90 min/day ) ST IPOC Speech Therapy Treatment Plan: Discontinue ST Treatment Duration: Jul 24, 2022 Frequency: 1 time per week Estimated Hrs Per Day: .25 hour per day Supervisor Agricultural Education/Case Mgmt Supervisor Agricultural Education/Case Managemen: Discharge Planning Dietitian/Powerhouse Mechanic Helper Dietitian/Powerhouse Mechanic Helper to monitor nutritional status and make changes and/or recommendations as needed and work with speech pathology on dietary upgrades as the occur. Physician IPOC Medical Issues being managed closely and that require the 24 hour availability of a physician: Patient with chronic kidney disease from diabetes and valvular heart disease and peripheral vascular disease with amputation of right third 2 on vancomycin will require close monitoring of diabetes in order to prevent decompensation. Medical Issues: Bowel/Bladder Function, DVT Prophylaxis, Falls Precautions, Fluid/Electrolyte/Nutrition Balance, Infection Protection, Pain Management, Weight Bearing Precautions, Wound Care Brief Synthesis of Preadmission Screen, Post-Admission Evaluation, and Therapy Evaluations: PT and OT will focus on regaining function with assistive devices in order to return back to independent living with independent ADLs and stamina with ambula tion Medical Prognosis: Fair Anticipated Length of Stay: 5 days NICHOLAS GLOVER DO Jul 26, 2022 05:41
[2022-07-26] MEDS: inSUlin ASPART (NovoLOG) 1 UNIT/0.01 ML (CHARGE PER UNIT) SC SCH ×4 (06:26→21:00)
[2022-07-26] MEDS: CATHETER FLUSH 10 ML SYR IVP SCH ×3 (06:39→21:06)
[2022-07-26] MEDS: PANTOPRAZOLE 40 MG (PROTONIX) TAB PO SCH (06:40)
[2022-07-26 08:00] VITALS: BP 140/66
[2022-07-26] MEDS: RT-ALBUTEROL/IPRATROPIUM 3 ML (DUONEB) VIAL INH SCH ×2 (08:20→21:14)
[2022-07-26] MEDS: SPIRONOLACTONE 25 MG (ALDACTONE) TAB PO SCH (08:48)
[2022-07-26] MEDS: ALLOPURINOL 100 MG (ZYLOPRIM) TAB PO SCH ×2 (08:48→21:05)
[2022-07-26] MEDS: SACUBITRIL/VALSARTAN 24/26 MG (ENTRESTO) TABLET PO SCH ×2 (08:48→21:05)
[2022-07-26] MEDS: meTOproloL SUCCINATE 50 MG (TOPROL XL) TAB PO SCH ×2 (08:49→21:04)
[2022-07-26] MEDS: oxyCODONE/APAP 5/325MG (PERCOCET 5) TABLET PO SCH ×2 (08:49→21:05)
[2022-07-26] MEDS: DOCUSATE SODIUM 100 MG (COLACE) CAP PO SCH ×4 (08:55→20:59)
[2022-07-26] MEDS: polyethylene glycoL POWDER 17 GM (MIRALAX) PACK PO SCH ×2 (08:55→21:00)
[2022-07-26] MEDS: SENNA W/DOCUSATE (SENOKOT S) TABLET PO SCH ×2 (08:55→21:00)
[2022-07-26] MEDS: SENNOSIDES 8.6 MG (SENOKOT) TAB PO SCH ×2 (08:55→21:00)
--- NOTE | 2022-07-26 11:18 | Progress Note ---
Subjective Date Seen by a Provider: Jul 26, 2022 Time Seen by a Provider: 11:10 Subjective/Events-last exam Patient seen with Dr. Maharaj. Patient reports doing well and ambulating with no pain. Denies any Fever/chills. Tolerating diet. Objective Exam Vital Signs Date Time Temp Pulse Resp B/P (MAP) Pulse Ox O2 Delivery O2 Flow Rate FiO2 07/26/22 08:20 95 Room Air 07/25/22 21:38 96 Room Air 07/25/22 21:00 Room Air 07/25/22 20:37 36.6 55 16 116/64 (81) 95 Room Air 07/25/22 15:27 36.2 65 97 21 I & O 07/26/22 07:00 Intake Total 1150 ml Balance 1150 ml Capillary Refill : General Appearance: No Apparent Distress, WD/WN Neck: Normal Inspection, Supple Respiratory: No Accessory Muscle Use, No Respiratory Distress Gastrointestinal: normal bowel sounds, non tender, soft Extremity: Normal Range of Motion, Other (Right 3rd toe amputation incision with sutures in place. There is some slight redness/erythema and edema of the palmar surface of the forefoot. No drainge) Neurologic/Psychiatric: Alert, Oriented x3 Skin: Normal Color, Warm/Dry Results Lab Laboratory Tests 07/25/22 15:25: Glucometer 264H 07/25/22 20:12: Glucometer 116H 07/26/22 06:21: Glucometer 143H Assessment/Plan Assessment/Plan Assess & Plan/Chief Complaint A 71 year old male who is s/p right 3rd toe amputation for osteomyelitis VSS WBC 13.6 Continue with abx and daily dressing changes. BIRGIT ANDRES APRN Jul 26, 2022 11:18
[2022-07-26] MEDS: VANCOMYCIN INJECTION 1,000 MG in NS (IVPB) 250 ML IV SCH (19:19)
[2022-07-26 19:44] VITALS: BP 127/60
[2022-07-26] MEDS: TAMSULOSIN 0.4 MG (FLOMAX) CAP PO SCH (21:04)
[2022-07-26] MEDS: ZOLPIDEM 5 MG (AMBIEN) TAB PO SCH (21:05)
[2022-07-26] MEDS: BETHANECHOL 25 MG (URECHOLINE) TAB PO SCH (21:05)
[2022-07-26] MEDS: FERROUS SULF 325 MG (IRON) TAB PO SCH (21:05)
[2022-07-27] MEDS: inSUlin ASPART (NovoLOG) 1 UNIT/0.01 ML (CHARGE PER UNIT) SC SCH ×4 (05:59→20:55)
[2022-07-27] MEDS: PANTOPRAZOLE 40 MG (PROTONIX) TAB PO SCH (06:17)
[2022-07-27] MEDS: CATHETER FLUSH 10 ML SYR IVP SCH ×3 (06:17→20:53)
--- NOTE | 2022-07-27 06:52 | PM&R Progress Note ---
Subjective HPI/CC On Admission Date Seen by Provider: Jul 27, 2022 Time Seen by Provider: 09:00 Subjective/Events-last exam 07/27/2022: Patient doing well Wound care will assess his foot Daptomycin will be set up for DC 07/26/2022: Patient doing well Will go for a day pass today Vancomycin tolerated 07/25/2022: Doing well Walking around well Pain is well controlled IV antibiotics maintained Labs reviewed Creatinine at baseline Review of Systems General: Fatigue, Malaise Musculoskeletal: leg pain, foot pain Objective Exam Vital Signs Vital Signs Date Time Temp Pulse Resp B/P (MAP) Pulse Ox O2 Delivery O2 Flow Rate FiO2 07/27/22 20:53 62 97 21 07/27/22 20:19 36.6 16 135/64 (87) Room Air 07/25/22 08:38 0.00 Capillary Refill : General Appearance: No Apparent Distress, WD/WN, Chronically ill HEENT: PERRL/EOMI, Normal ENT Inspection, Pharynx Normal Neck: Full Range of Motion, Normal Inspection, Non Tender, Supple, Carotid Bruit Respiratory: Chest Non Tender, Lungs Clear, Normal Breath Sounds, No Accessory Muscle Use, No Respiratory Distress Cardiovascular: Regular Rate, Rhythm, No Edema, No Gallop, No JVD, No Murmur, Normal Peripheral Pulses Gastrointestinal: Normal Bowel Sounds, No Organomegaly, No Pulsatile Mass, Non Tender, Soft Back: Normal Inspection, No CVA Tenderness, No Vertebral Tenderness Extremity: Normal Capillary Refill, Normal Inspection, Normal Range of Motion (Slow and decreased in general but especially left leg), Non Tender, No Calf Tenderness, No Pedal Edema Neurologic/Psychiatric: Alert, Oriented x3, Normal Mood/Affect, director appointment II-XII Norm as Tested, Abnormal Gait, Motor Weakness (Generalized weakness) Skin: Normal Color, Warm/Dry Lymphatic: No Adenopathy Results/Procedures Lab Patient resulted labs reviewed. FIM Transfers Therapy Code Descriptions/Definitions Functional [place] Measure: 0=Not Assessed/NA 4=Minimal Assistance 1=Total Assistance 5=Supervision or Setup 2=Maximal Assistance 6=Modified [place] 3=Moderate Assistance 7=Complete IndependenceSCALE: Activities may be completed with or without assistive devices. 4-Jjdplgcynw-cezvzeb completes the activity by him/herself with no assistance from a helper. 5-Set-up or Clean-up Assistance-helper sets up or cleans up; patient completes activity. [place] assists only prior to or following the activity. 4-Supervision or Touching Assistance-helper provides verbal cues and/or touching/steadying and/or contact guard assistance as patient completes activity. Assistance may be provided throughout the activity or intermittently. 3-Partial/Moderate Assistance-helper does LESS THAN HALF the effort. [place] lifts, holds or supports trunk or limbs, but provides less than half the effort. 2-Substantial/Maximal Assistance-helper does MORE THAN HALF the effort. [place] lifts or holds trunk or limbs and provides more than half the effort. 0-Rhkvltcru-siliej does ALL the effort. Patient does none of the effort to complete the activity. Or, the assistance of 2 or more helpers is required for the patient to complete the activity. If activity was not attempted, code reason: 7-Patient Refused. 9-Not Applicable-not attempted and the patient did not perform the activity before the current illness, exacerbation or injury. 10-Not Attempted due to Environmental Limitations-(lack of equipment, weather restraints, etc.). 88-Not Attempted due to Medical Conditions or Safety Concerns. Roll Left to Right (QC): 6 Sit to Lying (QC): 4 Sit to Stand (QC): 4 Chair/Qxi-an-Tvqvj Xfer(QC): 4 Car Transfer (QC): 4 Gait Training Does the Patient Walk?: No and Walking Goal NOT indicated Distance: 120ft x2 Walk 10 feet (QC): 4 Walk 50 ft with 2 Turns(QC): 4 Walk 150 ft (QC): 4 Walking 10ft/uneven surface-QC: 4 Gait Persons Needed: 1 Gait Assistive Device: FWW Wheelchair Training Does the Pt Use a Wheelchair?: No Wheel 50 ft with 2 turns (QC): 9 Wheel 150 ft (QC): 9 Stair Training #of Steps: 12 1 Step (curb) (QC): 4 4 Steps (QC): 4 12 Steps (QC): 4 Balance Picking up an Object (QC): 88 ADL-Treatment Eating (QC): 5 Oral Hygiene (QC): 4 Shower/Bathe Self (QC): 4 Upper Body Dressing (QC): 5 Lower Body Dressing (QC): 3 (min assist only due to bulky banage and elastic pant leg) On/Off Footwear (QC): 3 (min a to don surgical shoe) Toileting Hygiene (QC): 4 (per clinical judgment) Assessment/Plan Assessment and Plan Assess & Plan/Chief Complaint Assess & Plan/Chief Complaint 1. Sepsis -IV Zosyn 25mls/hr Q8H and Vancomycin 250mls/hr Q24H 2. Osteomyelitis and gangrene of 3rd digit on R foot -Had MRI confirming -Dr. Vela and Nicko will evaluate pt before proceeding with next steps in treatment plan 07/22: -successful amputation of 3 digit on R foot by Dr. Maharaj 3. NIDDM -takes metformin -Managed by Dr. Glover 4. Diabetic neuropathy 5. PAD -CT images from 12/16/21 demonstrated stenosis of varying degrees of the SFA and popliteal artery 6. HTN -controlled 7. CAD -cardiac cath 02/17/17 with stent placement due to near total occlusion of LAD 8. Ischemic Cardiomyopathy -Per cardiology notes, MPI on 04/16/20 showed inferoapical myocardial infarction with a small amt of tosin-infarct ischemia. Anteroapical akinesis. LVEF 30% 8. COPD -controlled 9. Severe MR -- S/P successful mitraclip placement by Dr. Vazquez at [facility] on 08/26/21 10. Chronic CHF -most recent ECHO showed LVEF 30-35%, grade 1 diastolic dysfunction, mild to mod MR, AoV thicknening (consistent with sclerosis), and PASP 20mmHg -MUGA on 05/21/22 was significant for ischemic cardiomyopathy with anteroapical akinesis and with left ventricular ejection fraction of 43%. 10. CKD IV 07/22: -moderate increase in BUN and Cr from yesterday, 30 and 2.2, but otherwise holding stable 11. Renal Artery Stenosis -CT images on 12/16/21 showed significant stenosis of L renal artery 12. H/o GI bleed -multiple hospitalizations requiring transfusions -Last EGD/colonoscopy 05/[address] Maharaj found moderate gastritis and mild chronic stage 1 external and internal hemorrhoids 13. Chronic Joint pain -managed by Dr. Glover 14. Carotid Artery Disease -noted on carotid u/s on 11/17/18 15. Gout -takes allopurinol at home and is continued in hospital 07/23: -L Knee gout flare >consult ortho for possible steroid injection >L Knee Xray >Start colchinine Plan: Consult Ortho for L Knee gout flare, possible steroid injection L knee XRAY Start Colchinine and continue allopurinol Continue IV abx Hold PT, will re-evaluate tomorrow due to knee pain limiting movement Pain medication prn Continue glycemic control Clinical Quality Measures Admission Status Admission Dx 1. Sepsis -IV Zosyn 25mls/hr Q8H and Vancomycin 250mls/hr Q24H 2. Osteomyelitis and gangrene of 3rd digit on R foot -Had MRI confirming -Dr. Vela and Nicko will evaluate pt before proceeding with next steps in treatment plan 3. NIDDM -takes metformin -Managed by Dr. Glover 4. Diabetic neuropathy 5. PAD -CT images from 12/16/21 demonstrated stenosis of varying degrees of the SFA and popliteal artery 6. HTN -controlled 7. CAD -cardiac cath 02/17/17 with stent placement due to near total occlusion of LAD 8. Ischemic Cardiomyopathy -Per cardiology notes, MPI on 04/16/20 showed inferoapical myocardial infarction with a small amt of tosin-infarct ischemia. Anteroapical akinesis. LVEF 30% 8. COPD -controlled 9. Severe MR -- S/P successful mitraclip placement by Dr. Vazquez at [facility] on 08/26/21 10. Chronic CHF -most recent ECHO showed LVEF 30-35%, grade 1 diastolic dysfunction, mild to mod MR, AoV thicknening (consistent with sclerosis), and PASP 20mmHg -MUGA on 05/21/22 was significant for ischemic cardiomyopathy with anteroapical akinesis and with left ventricular ejection fraction of 43%. 10. CKD IV 11. Renal Artery Stenosis -CT images on 12/16/21 showed significant stenosis of L renal artery 12. H/o GI bleed -multiple hospitalizations requiring transfusions -Last EGD/colonoscopy 05/[address] Maharaj found moderate gastritis and mild chronic stage 1 external and internal hemorrhoids 13. Chronic Joint pain -managed by Dr. Glover 14. Carotid Artery Disease -noted on carotid u/s on 11/17/18 07/25/2022: Supportive care Vancomycin 07/26/2022: Day pass today Vanc 07/27/2022: Check labs in am (1) Gangrene of toe of right foot (2) Knee pain Status: Chronic NICHOLAS GLOVER 24, 2022 06:52
[2022-07-27 07:47] VITALS: BP 161/69
[2022-07-27] MEDS: SPIRONOLACTONE 25 MG (ALDACTONE) TAB PO SCH (07:49)
[2022-07-27] MEDS: oxyCODONE/APAP 5/325MG (PERCOCET 5) TABLET PO SCH ×2 (07:49→20:54)
[2022-07-27] MEDS: ALLOPURINOL 100 MG (ZYLOPRIM) TAB PO SCH ×2 (07:49→20:54)
[2022-07-27] MEDS: polyethylene glycoL POWDER 17 GM (MIRALAX) PACK PO SCH ×2 (07:49→19:36)
[2022-07-27] MEDS: meTOproloL SUCCINATE 50 MG (TOPROL XL) TAB PO SCH ×2 (07:49→20:54)
[2022-07-27] MEDS: DOCUSATE SODIUM 100 MG (COLACE) CAP PO SCH ×4 (07:49→19:36)
[2022-07-27] MEDS: SENNA W/DOCUSATE (SENOKOT S) TABLET PO SCH ×2 (07:50→19:36)
[2022-07-27] MEDS: SACUBITRIL/VALSARTAN 24/26 MG (ENTRESTO) TABLET PO SCH ×2 (07:52→20:54)
[2022-07-27] MEDS: SENNOSIDES 8.6 MG (SENOKOT) TAB PO SCH ×2 (07:53→19:36)
--- NOTE | 2022-07-27 09:08 | Occupational Ther Daily Note ---
OT Current Status-Daily Note Subjective Pt laying in bed with nursing changing toe dressing upon arrival. He agreed to therapy. He did complain of pain 6/10 in L knee and foot and lower back. He reported a few times that he is ready for d/c and wants to go home today or tomorrow. Appearance Pt left sitting EOB with all needs within reach. Mental Status/Objective Patient Orientation: Person, Place, Time, Situation Attachments: IV ADL-Treatment Therapy Code Descriptions/Definitions Functional [place] Measure: 0=Not Assessed/NA 4=Minimal Assistance 1=Total Assistance 5=Supervision or Setup 2=Maximal Assistance 6=Modified [place] 3=Moderate Assistance 7=Complete IndependenceSCALE: Activities may be completed with or without assistive devices. 7-Cxlpphgguh-teskpdt completes the activity by him/herself with no assistance from a helper. 5-Set-up or Clean-up Assistance-helper sets up or cleans up; patient completes activity. [place] assists only prior to or following the activity. 4-Supervision or Touching Assistance-helper provides verbal cues and/or touching/steadying and/or contact guard assistance as patient completes activity. Assistance may be provided throughout the activity or intermittently. 3-Partial/Moderate Assistance-helper does LESS THAN HALF the effort. [place] lif ts, holds or supports trunk or limbs, but provides less than half the effort. 2-Substantial/Maximal Assistance-helper does MORE THAN HALF the effort. [place] lifts or holds trunk or limbs and provides more than half the effort. 1-Csxaofhsn-bssbam does ALL the effort. Patient does none of the effort to complete the activity. Or, the assistance of 2 or more helpers is required for the patient to complete the activity. If activity was not attempted, code reason: 7-Patient Refused. 9-Not Applicable-not attempted and the patient did not perform the activity before the current illness, exacerbation or injury. 10-Not Attempted due to Environmental Limitations-(lack of equipment, weather restraints, etc.). 88-Not Attempted due to Medical Conditions or Safety Concerns. Eating (QC): 6 Oral Hygiene (QC): 6 Upper Body Dressing (QC): 6 (per pt) Lower Body Dressing (QC): 6 (per pt) On/Off Footwear: 6 (per pt) Toileting Hygiene (QC): 6 (er pt) Toilet Transfer (QC): 6 (per pt) Pt reported that he did all of his dressing independently this morning, without nursing present either. He reported showering this weekend and that it went well and that there was no concerns. Sit<>stand transfer: independent. Ambulation with walker: independent. Pt ambulated into bathroom and completed oral hygiene with independence. Education and concerns about his home, any tripping hazards, AE, and any concerns he had about d/c and self-care tasks were discussed. He reported no concerns with anything and that he was ready to go home either today or tomorrow. Pain is patient's only limiting barrier at this time. Pt shows good knowledge about safety, energy conservation, and pain management. Pt reports having a good support system and states that his girlfriend will assist with anything he needs once at home. Other Treatment Pt declines leaving room for therapeutic activities but agrees to doing therapy in room. Pt completed 1x15 UE exercises in all planes with 2 lb wrist weights donned. He tolerated these very well and did not need many rest breaks. He was able to hold UE's in 90 degrees for 1 min each. Pt participated in functional activity 50% in standing with 2 lb wrist weights, involving fine motor skills, strengthening, problem-solving, coordination and balance. He again tolerated all activities well and reported no concerns. Education OT Patient Education: Correct positioning, Energy conservation, Exercise program, Home exercise program, Modified ADL techniques, Progress toward Goal/Update tx plan, Purpose of tx/functional activities, Reviewed precautions, Rehab process, Safety issues, Use of adapted equipment Teaching Recipient: Patient Teaching Methods: Demonstration, Discussion Response to Teaching: Verbalize Understanding, Return Demonstration OT Short Term Goals Short Term Goals Time Frame: Jul 28, 2022 Eatin Oral hygiene: 6 Toileting hygiene: 6 Shower/bathe self: 5 Upper body dressin Lower body dressin Putting on/taking off footwear: 4 OT [facility] Goals Stepdown Nurse Goals Time Frame: Aug 05, 2022 (anticipate short stay ) Acute change in mental status: 0 Inattention: 0 Disorganized thinkin Altered level of consciousness: 0 Eating (QC): 6 (met) Oral Hygiene (QC): 6 (met) Toileting Hygiene (QC): 6 (met) Shower/Bathe Self (QC): 6 Upper Body Dressing (QC): 6 (met) Lower Body Dressing (QC): 6 (met) On/Off Footwear (QC): 6 (met) Additional Goals: 1-Demonstrate ADL Tasks, 2-Verbalize Understanding, 3- ImproveStrength/Orly 1=Demonstrate adherence to instructed precautions during ADL tasks. 2=Patient will verbalize/demonstrate understanding of assistive devices/modifications for ADL. 3=Patient will improve strength/tolerance for activity to enable patient to perform ADL's. OT Education/Plan Problem List/Assessment Assessment: Decreased Activ Tolerance, Decreased UE Strength, Impaired I ADL's Discharge Recommendations Plan/Recommendations: Continue POC Therapy Discharge Recommendati: Home & Family Treatment Plan/Plan of Care Treatment,Training & Education: Yes Patient would benefit from OT for education, treatment and training to promote independence in ADL's, mobility, safety and/or upper extremity function for ADL's. Plan of Care: ADL Retraining, Functional Mobility, Group Exercise/Act as Ind, Orthotic Fitting/Training, UE Funct Exercise/Act Treatment Duration: Aug 05, 2022 Frequency: At least 5 of 7 days/Wk (IRF) Estimated Hrs Per Day: 1.5 hours per day (75-90 min/day ) Agreement: Yes Time/GCodes Start Time: 07:40 Stop Time: 09:10 Total Time Billed (hr/min): 90 Billed Treatment Time 1 visit ADL x2 (30 min) FA x2 (30 min) EX x2 (30 min) Amna Zavala OT Jul 27, 2022 09:08
[2022-07-27] MEDS ORDERED: DAPT500V18 IV (10:30)
--- NOTE | 2022-07-27 13:48 | Physical Therapy Daily Note ---
PT Daily Note-Current Subjective Pt laying Supine in bed upon arrival. Pt agrees to PT. Pain Location: Right, Lower Location Body Site: Back Pain Description: Ache Comment: Reports LBP as well as B knee stiffness/soreness Section J - Health Conditions 1. Rarely or not at all 2. Occasionally 3. Frequently 4. Almost constantly 8. Unable to answer Pain Effect on Sleep: 4 Pain Interference with Therapy: 4 Pain Interference w/Day-to-Day: 4 Mental Status Patient Orientation: Person, Place, Time, Situation Attachments: Other-See Comments (Surgical Shoe) Transfers SCALE: Activities may be completed with or without assistive devices. 1-Kpebhnuvna-hxykknj completes the activity by him/herself with no assistance from a helper. 5-Set-up or Clean-up Assistance-helper sets up or cleans up; patient completes activity. [place] assists only prior to or following the activity. 4-Supervision or Touching Assistance-helper provides verbal cues and/or touching/steadying and/or contact guard assistance as patient completes activity. Assistance may be provided throughout the activity or intermittently. 3-Partial/Moderate Assistance-helper does LESS THAN HALF the effort. [place] lifts, holds or supports trunk or limbs, but provides less than half the effort. 2-Substantial/Maximal Assistance-helper does MORE THAN HALF the effort. [place] lifts or holds trunk or limbs and provides more than half the effort. 6-Plaoehckn-yfbnzl does ALL the effort. Patient does none of the effort to complete the activity. Or, the assistance of 2 or more helpers is required for the patient to complete the activity. If activity was not attempted, code reason: 7-Patient Refused. 9-Not Applicable-not attempted and the patient did not perform the activity before the current illness, exacerbation or injury. 10-Not Attempted due to Environmental Limitations-(lack of equipment, weather restraints, etc.). 88-Not Attempted due to Medical Conditions or Safety Concerns. Roll Left & Right (QC): 6 Sit to Lying (QC): 6 Lying to Sitting/Side of Bed(Q: 6 Sit to Stand (QC): 6 Chair/Oiz-lq-Qutwq Xfer(QC): 6 Toilet Transfer (QC): 6 Car Transfer (QC): 6 Weight Bearing Right Lower Extremity: Right Weight Bearing/Tolerated Left Lower Extremity: Left Weight Bearing/Tolerated Gait Training Does the Patient Walk?: Yes Distance: 500', 150' Walk 10 feet (QC): 6 Walk 50 ft with 2 Turns(QC): 6 Walk 150 ft (QC): 6 Walking 10ft/uneven surface-QC: 6 Gait Assistive Device: FWW Wheelchair Training Does the Pt Use a Wheelchair?: No Stair Training Stair Training: Handrails/: 2 handrails #of Steps: 12 1 Step (curb) (QC): 5 4 Steps (QC): 5 12 Steps (QC): 5 Stairs: Pattern: Step to Balance Picking up an Object (QC): 5 Exercises Seated Therapy Exercises: Ankle pumps, Long arc quads, Hip flexion, Hip abd/add, Glut set Seated Reps: 15 NuStep Minutes: 15 NuStep Workload: 3 Treatments TF to standing and completes QC scoring items listed above. Pt uses NuStep and completes Seated EX. Pt returns to room at end of tx with all needs met, call light in hand. Assessment Current Status: Good Progress Pt is improving in strength, activity tolerance and independence of tasks. PT Custodial Goals Automatic Engraver Goals PT Custodial Goals Time Frame: Aug 15, 2022 Roll Left & Right (QC): 6 Sit to Lying (QC): 6 Lying-Sitting on Side/Bed(QC): 6 Sit to Stand (QC): 6 Chair/Gdv-kj-Etieh Xfer(QC): 6 Toilet Transfer (QC): 6 Car Transfer (QC): 6 Does the Patient Walk: Yes Walk 10 feet (QC): 6 Walk 50ft with 2 Turns (QC): 6 Walk 150 ft (QC): 6 Walking 10ft on Uneven Surface: 6 1 Step (curb) (QC): 6 4 Steps (QC): 6 12 Steps (QC): 6 Picking up an Object (QC): 6 Does the Pt use WC or Scooter?: No Wheel 50 feet with 2 turns (QC: 9 Wheel 150 feet: 9 PT Plan Treatment/Plan Treatment Plan: Continue Plan of Care Treatment Plan: Bed Mobility, Education, Functional Activity Orly, Functional Strength, Group Therapy, Gait, Safety, Therapeutic Exercise, Transfers Treatment Duration: Aug 29, 2022 Frequency: At least 5 of 7 days/Wk (IRF) Estimated Hrs Per Day: 1.5 hours per day Patient and/or Family Agrees t: Yes Time/GCodes Time In: 930 Time Out: 1100 Total Billed Treatment Time: 90 Total Billed Treatment 1, GT x2 (30m), EX x2 (30m) & FA x2 (30m) SANDRA GEIGER WELDING MACHINE OPERATOR FRICTION Jul 27, 2022 13:48
[2022-07-27] MEDS: COLLAGENASE 30 GM (SANTYL) TUBE TP SCH ×2 (14:42→20:55)
[2022-07-27] MEDS: HYPOCHLOROUS ACID/NaCl (VASHE) 250 ML IR PRN (14:42)
--- NOTE | 2022-07-27 14:58 | Wound Care Assessment ---
Wound Care Assessment Date Seen by Provider: Jul 27, 2022 Time Seen by Provider: 14:45 Chief Complaint Surgical dehiscence R. 3 toe amputation stump HPI This pleasant 71 year old gentleman had amputation of R. 3 [address] for gangrene per Dr. Maharaj. He was noted to have surgical dehiscence yesterday with increase slough today. I did discuss with Dr. Maharaj who agreed that suture removal and santyl with packing wound be appropriate. Culture obtained at time of admit with MRSA sensitive to vanc, minocycline, clindamycin, linezolid and Daptomycin. He is currently on IV vancomycin. Jitendra's wound healing will be complicated by PAD, DM2, CAD with CHF, PEM, anemia and CKD stage 4. Initial MRI on admit with osteomyelitis. This was confirmed on pathology at time of amputation (clear margins post-op). He did have arterial doppler with monophasic flow to the R. superficial femoral, popliteal, MINERVA and DUDE WRANGLER. He had CTA in December with high grade stenosis to R. SFA, popliteal but both studies with [address] villarreal did see Jitendra but has opted for conservative management due to his renal states (GFR 35, Creat 1.99). On exam he does have an area of dusky discoloration on the plantar foot with surrounding erythema and edema that could well be related to his poor arterial status. I did obtain a new wound culture to rule out any organisms we are missing with current antibiotic therapy. He does have a long h/o DM2 and poor glycemic control as well. Signficant neuropathy on exam. Past Medical History: Admits Diabetes Type II, Admits Heart Disease, Admits Peripheral Artery Disease CHF, mitral regurgitation, CKD stage 4, anemia, PEM, diabetic neuropathy Smoking Status: Former Smoker Alcohol Use: Occasionally Uses Exam Vital Signs Date Time Temp Pulse Resp B/P (MAP) Pulse Ox O2 Delivery O2 Flow Rate FiO2 07/27/22 08:47 Room Air 07/27/22 07:47 37.1 64 18 161/69 (99) 97 07/25/22 15:27 21 07/25/22 08:38 0.00 Capillary Refill : General Appearance: WD/WN, no apparent distress HEENT: other (normal hearing) Neck: full range of motion Cardiovascular: no edema Respiratory: no respiratory distress, no accessory muscle use Extremities: normal range of motion, no pedal edema, swelling Neurologic/Psychiatric: alert, normal mood/affect, oriented x 3 Skin Character: erythema (area of erythema on plantar foot with some degloving associated, dusky discoloration of tissue underlying) Wound assessment: 4.5x2.5x1.6. The epithelialization is none. There is no tunneling or undermining Drainage is large and serosanguinous. Granulation is none. Necrotic is large and slough. The margins show epibole. Bone is exposed and viable in appearance. Copious necrotic fat in wound bed. Results Laboratory Tests 07/26/22 17:07: Glucometer 173H 07/26/22 20:46: Glucometer 167H 07/27/22 05:51: Glucometer 125H 07/27/22 11:34: Glucometer 155H Assessment/Plan/Dx Assessment: 1. Surgical wound dehiscence from R. 3 toe amputation 2. PAD 3. DM2-poor control 4. Acute osteomyelitis s/p amputation 5. MRSA osteomyelitis 6. Cellulitis R. plantar foot 7. CKD stage 4 8. PEM 9. Anemia Plan: 1. Cleanse with vashe. Apply thick layer of Santyl to wound bed. Dampen 4x4 guaze with Vashe and apply atop Santyl. Cover with gauze and roller gauze. Secure with tape. Change twice daily. Will likely require further debridement as outpatient. Appropriately off loaded with surgical shoe currently. 2. If wound fails to improve, would warrant referral to [facility] for CO2 angiography and possible intervention if warranted. 3. Tight glycemic control. Defer to primary team 4. Agree with antibiotic therapy. New culture obtained. Highly bioavailable oral vs. IV antibiotics for 6 weeks total. 5. See above 6. See above 7. Defer to primary team 9. Glucerna protein shakes qa 10. Defer to primary team. CRISTIAN AKINS MD Jul 27, 2022 14:58
[2022-07-27] MEDS ORDERED: TROUGH ORDER-PHARMACY XX ONE (18:00)
[2022-07-27 20:19] VITALS: BP 135/64
[2022-07-27 20:53] VITALS: BP_DIAS 62
[2022-07-27] MEDS: ZOLPIDEM 5 MG (AMBIEN) TAB PO SCH (20:54)
[2022-07-27] MEDS: TAMSULOSIN 0.4 MG (FLOMAX) CAP PO SCH (20:54)
[2022-07-27] MEDS: BETHANECHOL 25 MG (URECHOLINE) TAB PO SCH (20:54)
[2022-07-27] MEDS: FERROUS SULF 325 MG (IRON) TAB PO SCH (20:54)
[2022-07-28] MEDS ORDERED: TROUGH ORDER-PHARMACY XX NR (06:00)
[2022-07-28] MEDS: inSUlin ASPART (NovoLOG) 1 UNIT/0.01 ML (CHARGE PER UNIT) SC SCH ×4 (06:05→21:05)
[2022-07-28] MEDS: PANTOPRAZOLE 40 MG (PROTONIX) TAB PO SCH (06:08)
[2022-07-28] MEDS: CATHETER FLUSH 10 ML SYR IVP SCH ×3 (06:08→21:05)
[2022-07-28 06:29] LABS: BASOPHILS # (AUTO) 0.1 10^3/uL (0.0-0.1); BASOPHILS % (AUTO) 1 % (0-10); EOSINOPHILS # (AUTO) 0.6 10^3/uL (0.0-0.3); EOSINOPHILS % (AUTO) 5 % (0-10); HEMATOCRIT 33 % (40-54); HEMOGLOBIN 10.7 g/dL (13.3-17.7); LYMPHOCYTES # (AUTO) 1.3 10^3/uL (1.0-4.0); LYMPHOCYTES % (AUTO) 11 % (12-44); MEAN CORPUSCULAR HEMOGLOBIN 30 pg (25-34); MEAN CORPUSCULAR HGB CONC 32 g/dL (32-36); MEAN CORPUSCULAR VOLUME 93 fL (80-99); MEAN PLATELET VOLUME 10.4 fL (9.0-12.2); MONOCYTES % (AUTO) 8 % (0-12); NEUTROPHILS # (AUTO) 8.7 10^3/uL (1.8-7.8); NEUTROPHILS % (AUTO) 72 % (42-75); PLATELET COUNT 295 10^3/uL (130-400); WHITE BLOOD COUNT 12.1 10^3/uL (4.3-11.0)
[2022-07-28 06:48] LABS: ALBUMIN 2.9 GM/DL (3.2-4.5); BILIRUBIN,TOTAL 0.3 MG/DL (0.1-1.0); CALCIUM 8.9 MG/DL (8.5-10.1); CREATININE SERUM 1.48 MG/DL (0.60-1.30)
[2022-07-28 06:54] LABS: VANCOMYCIN,TROUGH 14.5 UG/ML (10.0-20.0)
[2022-07-28 06:59] VITALS: BP 159/72
[2022-07-28 08:00] VITALS: BP 159/72
[2022-07-28] MEDS: ALLOPURINOL 100 MG (ZYLOPRIM) TAB PO SCH ×2 (08:12→21:05)
[2022-07-28] MEDS: oxyCODONE/APAP 5/325MG (PERCOCET 5) TABLET PO SCH ×2 (08:12→21:06)
[2022-07-28] MEDS: SPIRONOLACTONE 25 MG (ALDACTONE) TAB PO SCH (08:12)
[2022-07-28] MEDS: meTOproloL SUCCINATE 50 MG (TOPROL XL) TAB PO SCH ×2 (08:12→21:05)
[2022-07-28] MEDS: SACUBITRIL/VALSARTAN 24/26 MG (ENTRESTO) TABLET PO SCH ×2 (09:00→21:05)
--- NOTE | 2022-07-28 09:17 | Occupational Ther Daily Note ---
OT Current Status-Daily Note Subjective Pt sitting in recliner upon arrival. He agreed to a shower. He is hopeful to be going home tomorrow. Appearance Pt left laying in bed with all needs within reach. Mental Status/Objective Patient Orientation: Person, Place, Time, Situation Attachments: IV ADL-Treatment Therapy Code Descriptions/Definitions Functional [place] Measure: 0=Not Assessed/NA 4=Minimal Assistance 1=Total Assistance 5=Supervision or Setup 2=Maximal Assistance 6=Modified [place] 3=Moderate Assistance 7=Complete IndependenceSCALE: Activities may be completed with or without assistive devices. 3-Quaahayybz-ryrdvlj completes the activity by him/herself with no assistance from a helper. 5-Set-up or Clean-up Assistance-helper sets up or cleans up; patient completes activity. [place] assists only prior to or following the activity. 4-Supervision or Touching Assistance-helper provides verbal cues and/or touching/steadying and/or contact guard assistance as patient completes activity. Assistance may be provided throughout the activity or intermittently. 3-Partial/Moderate Assistance-helper does LESS THAN HALF the effort. [place] lifts, holds or supports trunk or limbs, but provides less than half the effort. 2-Substantial/Maximal Assistance-helper does MORE THAN HALF the effort. [place] lifts or holds trunk or limbs and provides more than half the effort. 4-Alyfozbgp-uqaufd does ALL the effort. Patient does none of the effort to complete the activity. Or, the assistance of 2 or more helpers is required for the patient to complete the activity. If activity was not attempted, code reason: 7-Patient Refused. 9-Not Applicable-not attempted and the patient did not perform the activity before the current illness, exacerbation or injury. 10-Not Attempted due to Environmental Limitations-(lack of equipment, weather restraints, etc.). 88-Not Attempted due to Medical Conditions or Safety Concerns. Eating (QC): 6 Oral Hygiene (QC): 6 (per pt) Shower/Bathe Self (QC): 5 Upper Body Dressing (QC): 6 Lower Body Dressing (QC): 6 On/Off Footwear: 6 Toileting Hygiene (QC): 6 Toilet Transfer (QC): 6 Sit<>stand: Independent. Pt able to retrieve clothing from cabinet and drape over walker to ambulate into bathroom. Pt doffed all clothing 50/50 standing and sitting with independence. Pt required set up for shower to cover foot and IV. Pt completed shower 50% in sitting, 50% in standing. Pt required no physical assist for shower or donning clothing. Pt stood at sink to perform grooming task of brushing hair. Per pt, he performed oral hygiene this morning with independence. Pt able to don boot and shoe with independence and use of long handled shoe horn. Other Treatment Pt ambulated ~60 ft with FWW. Pt participated in UE standing exercises with 3 lb pvc pipe 1x15 with SBA for safety to improve balance, coordination, endurance, and strength. Pt was unsteady during standing exercises but no significant LOB. Pt participated in standing functional activity to address balance, wedding coordinator rdination, memory, endurance, and strengthening. Pt tolerated activity well and stood for ~5 min but showed a lack of balance, coordination and short term memory with activity. Pt able to complete 3 sequence patterns but required mod verbal cues when pattern increased to 4 step sequence. Increased unsteadiness when reaching slightly out of base of support or when lifting 1 foot off floor. He required both hands to be on the wall at all times. Education OT Patient Education: Correct positioning, Energy conservation, Exercise program, Home exercise program, Modified ADL techniques, Progress toward Goa l/Update tx plan, Purpose of tx/functional activities, Reviewed precautions, Rehab process, Safety issues, Transfer techniques, Use of adapted equipment Teaching Recipient: Patient Teaching Methods: Demonstration, Discussion Response to Teaching: Verbalize Understanding, Return Demonstration OT Short Term Goals Short Term Goals Time Frame: Jul 28, 2022 Eatin Oral hygiene: 6 Toileting hygiene: 6 Shower/bathe self: 5 Upper body dressin Lower body dressin Putting on/taking off footwear: 4 OT Longterm Goals Microwave Remote Sensing Scientist Goals Time Frame: Aug 05, 2022 (anticipate short stay ) Acute change in mental status: 0 Inattention: 0 Disorganized thinkin Altered level of consciousness: 0 Eating (QC): 6 (met) Oral Hygiene (QC): 6 (met) Toileting Hygiene (QC): 6 (met) Shower/Bathe Self (QC): 6 Upper Body Dressing (QC): 6 (met) Lower Body Dressing (QC): 6 (met) On/Off Footwear (QC): 6 (met) Additional Goals: 1-Demonstrate ADL Tasks, 2-Verbalize Understanding, 3- ImproveStrength/Orly 1=Demonstrate adherence to instructed precautions during ADL tasks. 2=Patient will verbalize/demonstrate understanding of assistive devices/modifications for ADL. 3=Patient will improve strength/tolerance for activity to enable patient to perform ADL's. OT Education/Plan Problem List/Assessment Assessment: Decreased Activ Tolerance, Decreased UE Strength, Impaired Cognition, Impaired Coordination, Impaired Funct Balance, Impaired I ADL's, Impaired Self-Care Skills Discharge Recommendations Plan/Recommendations: Continue POC Therapy Discharge Recommendati: Bath Aide, Homemaker Support, Home & Family Treatment Plan/Plan of Care Treatment,Training & Education: Yes Patient would benefit from OT for education, treatment and training to promote independence in ADL's, mobility, safety and/or upper extremity function for ADL's. Plan of Care: ADL Retraining, Functional Mobility, Group Exercise/Act as Ind, Orthotic Fitting/Training, UE Funct Exercise/Act Treatment Duration: Aug 05, 2022 Frequency: At least 5 of 7 days/Wk (IRF) Estimated Hrs Per Day: 1.5 hours per day (75-90 min/day ) Agreement: Yes Time/GCodes Start Time: 07:45 Stop Time: 09:15 Total Time Billed (hr/min): 90 Billed Treatment Time 1 visit ADL x3 (45 min) EX (15 min) FA (15 min) Amna Zavala OT Jul 28, 2022 09:17
[2022-07-28] MEDS: VANCOMYCIN 750 MG/NS 250 ML IVPB IV SCH ×2 (09:35)
[2022-07-28] MEDS: SENNA W/DOCUSATE (SENOKOT S) TABLET PO SCH ×2 (09:43→19:46)
[2022-07-28] MEDS: polyethylene glycoL POWDER 17 GM (MIRALAX) PACK PO SCH ×2 (09:43→19:46)
[2022-07-28] MEDS: DOCUSATE SODIUM 100 MG (COLACE) CAP PO SCH ×4 (09:43→19:45)
[2022-07-28] MEDS: SENNOSIDES 8.6 MG (SENOKOT) TAB PO SCH ×2 (09:43→19:46)
--- NOTE | 2022-07-28 11:51 | Physical Therapy Daily Note ---
PT Daily Note-Current Subjective Pt laying Supine in bed upon arrival. Pt agrees to PT after some convincing. Pt reports "not feeling good, not bad just not good". Pain Numeric Pain Scale: 6 Location: Lower Location Body Site: Back Pain Description: Ache Section J - Health Conditions 1. Rarely or not at all 2. Occasionally 3. Frequently 4. Almost constantly 8. Unable to answer Pain Effect on Sleep: 4 Pain Interference with Therapy: 4 Pain Interference w/Day-to-Day: 4 Mental Status Patient Orientation: Person, Place, Situation Attachments: Other-See Comments (Surgical Shoe) Transfers SCALE: Activities may be completed with or without assistive devices. 6-Aqkoamyajn-koapfcy completes the activity by him/herself with no assistance from a helper. 5-Set-up or Clean-up Assistance-helper sets up or cleans up; patient completes activity. [place] assists only prior to or following the activity. 4-Supervision or Touching Assistance-helper provides verbal cues and/or touching/steadying and/or contact guard assistance as patient completes activity. Assistance may be provided throughout the activity or intermittently. 3-Partial/Moderate Assistance-helper does LESS THAN HALF the effort. [place] lifts, holds or supports trunk or limbs, but provides less than half the effort. 2-Substantial/Maximal Assistance-helper does MORE THAN HALF the effort. [place] lifts or holds trunk or limbs and provides more than half the effort. 8-Agbztisrd-tjknqr does ALL the effort. Patient does none of the effort to complete the activity. Or, the assistance of 2 or more helpers is required for the patient to complete the activity. If activity was not attempted, code reason: 7-Patient Refused. 9-Not Applicable-not attempted and the patient did not perform the activity before the current illness, exacerbation or injury. 10-Not Attempted due to Environmental Limitations-(lack of equipment, weather restraints, etc.). 88-Not Attempted due to Medical Conditions or Safety Concerns. Sit to Stand (QC): 6 Toilet Transfer (QC): 6 Weight Bearing Right Lower Extremity: Right Weight Bearing/Tolerated Left Lower Extremity: Left Weight Bearing/Tolerated Gait Training Does the Patient Walk?: Yes Distance: 500', 125' Walk 10 feet (QC): 6 Walk 50 ft with 2 Turns(QC): 6 Walk 150 ft (QC): 6 Gait Assistive Device: FWW Wheelchair Training Does the Pt Use a Wheelchair?: No Stair Training Stair Training: Handrails/: 2 handrails #of Steps: 12 1 Step (curb) (QC): 6 4 Steps (QC): 6 12 Steps (QC): 5 Stairs: Pattern: Step to Exercises Seated Therapy Exercises: Ankle pumps, Long arc quads, Hip flexion, Hip abd/add, Glut set Seated Reps: 15 Standing: Hip Abduction, Hamstring curls, Heel/toe raises, 3 way Ex=Flex, Abd, Ext, Marching, Weight shifts Standing Reps: 15 NuStep Minutes: 10 NuStep Workload: 3 Treatments After soda maker departs then finishes conversation w/co-worker and co-worker departs to start tx as Nurse finishes IV. TF to EOB and dons surgical shoe & tennis shoe before amb. to BR. Pt amb. in hallway then RB in Therapy Gym. Pt completes Seated EX then Standing EX at //bars for balance work. Pt takes a short RB then completes 12 steps and another RB. Pt uses NuStep before amb. in hallway and returning to room to rest in bed. All needs met, call light next to pt. Assessment Current Status: Good Progress Pt demo. a little slower with activity and needs a few RB but able to complete tasks well dex. though where pt works on balance. PT Custodial Goals Custodial Goals PT Custodial Goals Time Frame: Aug 15, 2022 Roll Left & Right (QC): 6 Sit to Lying (QC): 6 Lying-Sitting on Side/Bed(QC): 6 Sit to Stand (QC): 6 Chair/Als-hf-Tsaia Xfer(QC): 6 Toilet Transfer (QC): 6 Car Transfer (QC): 6 Does the Patient Walk: Yes Walk 10 feet (QC): 6 Walk 50ft with 2 Turns (QC): 6 Walk 150 ft (QC): 6 Walking 10ft on Uneven Surface: 6 1 Step (curb) (QC): 6 4 Steps (QC): 6 12 Steps (QC): 6 Picking up an Object (QC): 6 Does the Pt use WC or Scooter?: No Wheel 50 feet with 2 turns (QC: 9 Wheel 150 feet: 9 PT Plan Problem List Problem List: Activity Tolerance Treatment/Plan Treatment Plan: Continue Plan of Care Treatment Plan: Bed Mobility, Education, Functional Activity Orly, Functional Strength, Group Therapy, Gait, Safety, Therapeutic Exercise, Transfers Treatment Duration: Aug 29, 2022 Frequency: At least 5 of 7 days/Wk (IRF) Estimated Hrs Per Day: 1.5 hours per day Patient and/or Family Agrees t: Yes Safety Risks/Education Patient Education: Transfer Techniques, Steps, Correct Positioning Teaching Recipient: Patient Teaching Methods: Discussion Response to Teaching: Verbalize Understanding Time Time In: 1015 Time Out: 1145 Total Billed Treatment Time: 90 Total Billed Treatment 1, GT x2 (30m), EX x3 (40m) & FA (20m) SANDRA GEIGER SERVICE DESK TEAM LEAD Jul 28, 2022 11:51
[2022-07-28 15:32] VITALS: BP_DIAS 62
[2022-07-28] MEDS: COLLAGENASE 30 GM (SANTYL) TUBE TP SCH ×2 (17:08→21:17)
[2022-07-28 20:11] VITALS: BP 154/65
[2022-07-28] MEDS: FERROUS SULF 325 MG (IRON) TAB PO SCH (21:05)
[2022-07-28] MEDS: ZOLPIDEM 5 MG (AMBIEN) TAB PO SCH (21:05)
[2022-07-28] MEDS: BETHANECHOL 25 MG (URECHOLINE) TAB PO SCH (21:05)
[2022-07-28] MEDS: TAMSULOSIN 0.4 MG (FLOMAX) CAP PO SCH (21:05)
[2022-07-29] MEDS: PANTOPRAZOLE 40 MG (PROTONIX) TAB PO SCH (05:28)
[2022-07-29] MEDS: inSUlin ASPART (NovoLOG) 1 UNIT/0.01 ML (CHARGE PER UNIT) SC SCH ×2 (05:29→11:04)
[2022-07-29] MEDS: CATHETER FLUSH 10 ML SYR IVP SCH (05:29)
--- NOTE | 2022-07-29 05:30 | PM&R Progress Note ---
Subjective HPI/CC On Admission Date Seen by Provider: Jul 28, 2022 Time Seen by Provider: 09:00 Subjective/Events-last exam 07/28/2022: Ready for DC tomorrow IV abx guerrero be set up outpatient 07/27/2022: Patient doing well Wound care will assess his foot Daptomycin will be set up for DC 07/26/2022: Patient doing well Will go for a day pass today Vancomycin tolerated 07/25/2022: Doing well Walking around well Pain is well controlled IV antibiotics maintained Labs reviewed Creatinine at baseline Review of Systems General: Fatigue, Malaise Objective Exam Vital Signs Vital Signs Date Time Temp Pulse Resp B/P (MAP) Pulse Ox O2 Delivery O2 Flow Rate FiO2 07/28/22 20:11 36.8 69 16 154/65 (94) 97 Room Air 07/28/22 15:32 21 07/25/22 08:38 0.00 Capillary Refill : General Appearance: No Apparent Distress, WD/WN, Chronically ill HEENT: PERRL/EOMI, Normal ENT Inspection, Pharynx Normal Neck: Full Range of Motion, Normal Inspection, Non Tender, Supple, Carotid Bruit Respiratory: Chest Non Tender, Lungs Clear, Normal Breath Sounds, No Accessory Muscle Use, No Respiratory Distress Cardiovascular: Regular Rate, Rhythm, No Edema, No Gallop, No JVD, No Murmur, Normal Peripheral Pulses Gastrointestinal: Normal Bowel Sounds, No Organomegaly, No Pulsatile Mass, Non Tender, Soft Back: Normal Inspection, No CVA Tenderness, No Vertebral Tenderness Extremity: Normal Capillary Refill, Normal Inspection, Normal Range of Motion, Non Tender, No Calf Tenderness, No Pedal Edema Neurologic/Psychiatric: Alert, Oriented x3, Normal Mood/Affect, 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 FIM Transfers Therapy Code Descriptions/Definitions Functional [place] Measure: 0=Not Assessed/NA 4=Minimal Assistance 1=Total Assistance 5=Supervision or Setup 2=Maximal Assistance 6=Modified [place] 3=Moderate Assistance 7=Complete IndependenceSCALE: Activities may be completed with or without assistive devices. 4-Uzqmrbtkkt-cleadjc completes the activity by him/herself with no assistance from a helper. 5-Set-up or Clean-up Assistance-helper sets up or cleans up; patient completes activity. [place] assists only prior to or following the activity. 4-Supervision or Touching Assistance-helper provides verbal cues and/or touching/steadying and/or contact guard assistance as patient completes activity. Assistance may be provided throughout the activity or intermittently. 3-Partial/Moderate Assistance-helper does LESS THAN HALF the effort. [place] lifts, holds or supports trunk or limbs, but provides less than half the effort. 2-Substantial/Maximal Assistance-helper does MORE THAN HALF the effort. [place] lifts or holds trunk or limbs and provides more than half the effort. 8-Ggkeoccgw-lerqup does ALL the effort. Patient does none of the effort to complete the activity. Or, the assistance of 2 or more helpers is required for the patient to complete the activity. If activity was not attempted, code reason: 7-Patient Refused. 9-Not Applicable-not attempted and the patient did not perform the activity before the current illness, exacerbation or injury. 10-Not Attempted due to Environmental Limitations-(lack of equipment, weather restraints, etc.). 88-Not Attempted due to Medical Conditions or Safety Concerns. Roll Left to Right (QC): 6 Sit to Lying (QC): 6 Sit to Stand (QC): 6 Chair/Jal-kc-Asqzr Xfer(QC): 6 Car Transfer (QC): 6 Gait Training Does the Patient Walk?: Yes Distance: 500', 125' Walk 10 feet (QC): 6 Walk 50 ft with 2 Turns(QC): 6 Walk 150 ft (QC): 6 Walking 10ft/uneven surface-QC: 6 Gait Persons Needed: 1 Gait Assistive Device: FWW Wheelchair Training Does the Pt Use a Wheelchair?: No Wheel 50 ft with 2 turns (QC): 9 Wheel 150 ft (QC): 9 Stair Training Stair Training: Handrails/: 2 handrails #of Steps: 12 1 Step (curb) (QC): 6 4 Steps (QC): 6 12 Steps (QC): 5 Stairs: Pattern: Step to Balance Picking up an Object (QC): 5 ADL-Treatment Eating (QC): 6 Oral Hygiene (QC): 6 (per pt) Shower/Bathe Self (QC): 5 Upper Body Dressing (QC): 6 Lower Body Dressing (QC): 6 On/Off Footwear (QC): 6 Toileting Hygiene (QC): 6 Toilet Transfer (QC): 6 Assessment/Plan Assessment and Plan Assess & Plan/Chief Complaint Assess & Plan/Chief Complaint 1. Sepsis -IV Zosyn 25mls/hr Q8H and Vancomycin 250mls/hr Q24H 2. Osteomyelitis and gangrene of 3rd digit on R foot -Had MRI confirming -Dr. Vela and Nicko will evaluate pt before proceeding with next steps in treatment plan 07/22: -successful amputation of 3 digit on R foot by Dr. Maharaj 3. NIDDM -takes metformin -Managed by Dr. Glover 4. Diabetic neuropathy 5. PAD -CT images from 12/16/21 demonstrated stenosis of varying degrees of the SFA and popliteal artery 6. HTN -controlled 7. CAD -cardiac cath 02/17/17 with stent placement due to near total occlusion of LAD 8. Ischemic Cardiomyopathy -Per cardiology notes, MPI on 04/16/20 showed inferoapical myocardial infarction with a small amt of tosin-infarct ischemia. Anteroapical akinesis. LVEF 30% 8. COPD -controlled 9. Severe MR -- S/P successful mitraclip placement by Dr. Vazquez at [facility] on 08/26/21 10. Chronic CHF -most recent ECHO showed LVEF 30-35%, grade 1 diastolic dysfunction, mild to mod MR, AoV thicknening (consistent with sclerosis), and PASP 20mmHg -MUGA on 05/21/22 was significant for ischemic cardiomyopathy with anteroapical akinesis and with left ventricular ejection fraction of 43%. 10. CKD IV 07/22: -moderate increase in BUN and Cr from yesterday, 30 and 2.2, but otherwise holding stable 11. Renal Artery Stenosis -CT images on 12/16/21 showed significant stenosis of L renal artery 12. H/o GI bleed -multiple hospitalizations requiring transfusions -Last EGD/colonoscopy 05/[address] Maharaj found moderate gastritis and mild chronic stage 1 external and internal hemorrhoids 13. Chronic Joint pain -managed by Dr. Glover 14. Carotid Artery Disease -noted on carotid u/s on 11/17/18 15. Gout -takes allopurinol at home and is continued in hospital 07/23: -L Knee gout flare >consult ortho for possible steroid injection >L Knee Xray >Start colchinine Plan: Consult Ortho for L Knee gout flare, possible steroid injection L knee XRAY Start Colchinine and continue allopurinol Continue IV abx Hold PT, will re-evaluate tomorrow due to knee pain limiting movement Pain medication prn Continue glycemic control Clinical Quality Measures Admission Status Admission Dx 1. Sepsis -IV Zosyn 25mls/hr Q8H and Vancomycin 250mls/hr Q24H 2. Osteomyelitis and gangrene of 3rd digit on R foot -Had MRI confirming -Dr. Vela and Nicko will evaluate pt before proceeding with next steps in treatment plan 3. NIDDM -takes metformin -Managed by Dr. Glover 4. Diabetic neuropathy 5. PAD -CT images from 12/16/21 demonstrated stenosis of varying degrees of the SFA and popliteal artery 6. HTN -controlled 7. CAD -cardiac cath 02/17/17 with stent placement due to near total occlusion of LAD 8. Ischemic Cardiomyopathy -Per cardiology notes, MPI on 04/16/20 showed inferoapical myocardial inf arction with a small amt of tosin-infarct ischemia. Anteroapical akinesis. LVEF 30% 8. COPD -controlled 9. Severe MR -- S/P successful mitraclip placement by Dr. Vazquez at [facility] on 08/26/21 10. Chronic CHF -most recent ECHO showed LVEF 30-35%, grade 1 diastolic dysfunction, mild to mod MR, AoV thicknening (consistent with sclerosis), and PASP 20mmHg -MUGA on 05/21/22 was significant for ischemic cardiomyopathy with a nteroapical akinesis and with left ventricular ejection fraction of 43%. 10. CKD IV 11. Renal Artery Stenosis -CT images on 12/16/21 showed significant stenosis of L renal artery 12. H/o GI bleed -multiple hospitalizations requiring transfusions -Last EGD/colonoscopy 05/[address] Maharaj found moderate gastritis and mild chronic stage 1 external and internal hemorrhoids 13. Chronic Joint pain -managed by Dr. Glover 14. Carotid Artery Disease -noted on carotid u/s on 11/17/18 07/25/2022: Supportive care Vancomycin 07/26/2022: Day pass today Vanc 07/27/2022: Check labs in am 10/25/22: DC tomorrow (1) Gangrene of toe of right foot (2) Knee pain Status: Chronic NICHOLAS GLOVER DO Jul 29, 2022 05:30
[2022-07-29] MEDS ORDERED: OXYC1TAB11 PO (05:35)
--- NOTE | 2022-07-29 05:36 | Discharge Summary ---
Diagnosis/Chief Complaint Date of Admission Jul 24, 2022 at 11:00 Date of Discharge Discharge Date: Jul 29, 2022 Discharge Diagnosis Admission Dx 1. Sepsis -IV Zosyn 25mls/hr Q8H and Vancomycin 250mls/hr Q24H 2. Osteomyelitis and gangrene of 3rd digit on R foot -Had MRI confirming -Dr. Vela and Nicko will evaluate pt before proceeding with next steps in treatment plan 3. NIDDM -takes metformin -Managed by Dr. Glover 4. Diabetic neuropathy 5. PAD -CT images from 12/16/21 demonstrated stenosis of varying degrees of the SFA and popliteal artery 6. HTN -controlled 7. CAD -cardiac cath 02/17/17 with stent placement due to near total occlusion of LAD 8. Ischemic Cardiomyopathy -Per cardiology notes, MPI on 04/16/20 showed inferoapical myocardial infarction with a small amt of tosin-infarct ischemia. Anteroapical akinesis. LVEF 30% 8. COPD -controlled 9. Severe MR -- S/P successful mitraclip placement by Dr. Vazquez at [facility] on 08/26/21 10. Chronic CHF -most recent ECHO showed LVEF 30-35%, grade 1 diastolic dysfunction, mild to mod MR, AoV thicknening (consistent with sclerosis), and PASP 20mmHg -MUGA on 05/21/22 was significant for ischemic cardiomyopathy with cathi apical akinesis and with left ventricular ejection fraction of 43%. 10. CKD IV 11. Renal Artery Stenosis -CT images on 12/16/21 showed significant stenosis of L renal artery 12. H/o GI bleed -multiple hospitalizations requiring transfusions -Last EGD/colonoscopy 05/[address] Maharaj found moderate gastritis and mild chronic stage 1 external and internal hemorrhoids 13. Chronic Joint pain -managed by Dr. Glover 14. Carotid Artery Disease -noted on carotid u/s on 11/17/18 07/25/2022: Supportive care Vancomycin 07/26/2022: Day pass today Vanc 07/27/2022: Check labs in am 07/28/22: DC tomorrow (1) Gangrene of toe of right foot (2) Knee pain Status: Chronic Discharge Summary Discharge Physical Examination Allergies: Coded Allergies: No Known Drug Allergies (Unverified , 01/25/17) Vitals & I&Os Vital Signs Date Time Temp Pulse Resp B/P (MAP) Pulse Ox O2 Delivery O2 Flow Rate FiO2 07/29/22 13:14 36.6 61 16 167/74 92 Room Air 07/29/22 10:54 0.00 0.00 07/28/22 15:32 21 General Appearance: Alert, Oriented X3, Cooperative Respiratory: Clear to Auscultation Cardiovascular: Regular Rate Psych/Mental Status: Mental Status NL Hospital Course Was the Problem List Reviewed?: Yes Uneventful course in ARU after he was admitted for debility following right 3rd toe amputation with foot cellulitis MRSA requiring IV Vanc and dressing changes along with wound care eval. Patient recovered well and participated in therapy and was assessed to be improved and was DC in improved condition. Labs (last 24 hrs) Laboratory Tests 07/24/22 11:38: Glucometer 250H 07/24/22 15:29: Glucometer 223H 07/24/22 20:45: Glucometer 190H 07/25/22 05:25: White Blood Count 13.6H, Red Blood Count 3.49L, Hemoglobin 10.5L, Hematocrit 32L , Mean Corpuscular Volume 93, Mean Corpuscular Hemoglobin 30, Mean Corpuscular Hemoglobin Concent 33, Red Cell Distribution Width 13.7, Platelet Count 299, Mean Platelet Volume 11.0, Immature Granulocyte % (Auto) 1, Neutrophils (%) (Auto) 84H, Lymphocytes (%) (Auto) 7L, Monocytes (%) (Auto) 7, Eosinophils (%) (Auto) 0, Basophils (%) (Auto) 0, Neutrophils # (Auto) 11.5H, Lymphocytes # (Auto) 1.0, Monocytes # (Auto) 1.0, Eosinophils # (Auto) 0.0, Basophils # (Auto) 0.0, Immature Granulocyte # (Auto) 0.2H, Neutrophils % (Manual) 82, Lymphocytes % (Manual) 7, Monocytes % (Manual) 6, Band Neutrophils 5, Platelet Estimate NORMAL, Anisocytosis SLIGHT, Blood Morphology Comment , Sodium Level 141, Potassium Level 4.2, Chloride Level 112H, Carbon Dioxide Level 19L, Anion Gap 10, Blood Urea Nitrogen 39H, Creatinine 1.99H, Estimat Glomerular Filtration Rate 35, BUN/Creatinine Ratio 20, Glucose Level 255H, Calcium Level 8.6, Corrected Calcium 9.6, Total Bilirubin 0.3, Aspartate Amino Transf (AST/SGOT) 72H, Alanine Aminotransferase (ALT/SGPT) 32, Alkaline Phosphatase 105, Total Protein 6.1L, Albumin 2.8L 07/25/22 05:54: Glucometer 218H 07/25/22 11:00: Glucometer 114H 07/25/22 15:25: Glucometer 264H 07/25/22 20:12: Glucometer 116H 07/26/22 06:21: Glucometer 143H 07/26/22 11:38: Glucometer 213H 07/26/22 17:07: Glucometer 173H 07/26/22 20:46: Glucometer 167H 07/27/22 05:51: Glucometer 125H 07/27/22 11:34: Glucometer 155H 07/27/22 15:03: Glucometer 172H 07/27/22 17:40: Vancomycin Level Trough 19.3 07/27/22 20:12: Glucometer 207H 07/28/22 06:04: Glucometer 147H 07/28/22 06:15: White Blood Count 12.1H, Red Blood Count 3.59L, Hemoglobin 10.7L, Hematocrit 33L , Mean Corpuscular Volume 93, Mean Corpuscular Hemoglobin 30, Mean Corpuscular Hemoglobin Concent 32, Red Cell Distribution Width 13.9, Platelet Count 295, Mean Platelet Volume 10.4, Immature Granulocyte % (Auto) 3, Neutrophils (%) (Auto) 72, Lymphocytes (%) (Auto) 11L, Monocytes (%) (Auto) 8, Eosinophils (%) (Auto) 5, Basophils (%) (Auto) 1, Neutrophils # (Auto) 8.7H, Lymphocytes # (Auto) 1.3, Monocytes # (Auto) 1.0, Eosinophils # (Auto) 0.6H, Basophils # (Auto ) 0.1, Immature Granulocyte # (Auto) 0.4H, Sodium Level 143, Potassium Level 4.0, Chloride Level 112H, Carbon Dioxide Level 22, Anion Gap 9, Blood Urea Nitrogen 24H, Creatinine 1.48H, Estimat Glomerular Filtration Rate 50, BUN/Creatinine Ratio 16, Glucose Level 155H, Calcium Level 8.9, Corrected Calcium 9.8, Total Bilirubin 0.3, Aspartate Amino Transf (AST/SGOT) 24, Alanine Aminotransferase (ALT/SGPT) 37, Alkaline Phosphatase 105, Total Protein 6.0L, Albumin 2.9L, Vancomycin Level Trough 14.5 07/28/22 10:47: Glucometer 156H 07/28/22 17:04: Glucometer 117H 07/28/22 20:09: Glucometer 192H 07/29/22 05:25: Glucometer 106 07/29/22 10:51: Glucometer 131H Microbiology 07/27/22 Gram Stain - Final, Resulted 07/27/22 Wound Culture - Preliminary, Resulted Staphylococcus aureus Susceptibility To Follow Pending Labs Microbiology Date/Time Source Procedure Growth Status 07/27/22 14:37 Incision Toe Gram Stain - Final Resulted 07/27/22 14:37 Wound Culture - Preliminary Staphylococcus aureus Susceptibility To Follow Resulted Laboratory Tests 07/24/22 11:38: Glucometer 250 07/24/22 15:29: Glucometer 223 07/24/22 20:45: Glucometer 190 07/25/22 05:25: White Blood Count 13.6, Red Blood Count 3.49, Hemoglobin 10.5, Hematocrit 32, Mean Corpuscular Volume 93, Mean Corpuscular Hemoglobin 30, Mean Corpuscular Hemoglobin Concent 33, Red Cell Distribution Width 13.7, Platelet Count 299, Mean Platelet Volume 11.0, Immature Granulocyte % (Auto) 1, Neutrophils (%) (Auto) 84, Lymphocytes (%) (Auto) 7, Monocytes (%) (Auto) 7, Eosinophils (%) (Auto) 0, Basophils (%) (Auto) 0, Neutrophils # (Auto) 11.5, Lymphocytes # (Auto) 1.0, Monocytes # (Auto) 1.0, Eosinophils # (Auto) 0.0, Basophils # (Auto) 0.0, Immature Granulocyte # (Auto) 0.2, Neutrophils % (Manual) 82, Lymphocytes % (Manual) 7, Monocytes % (Manual) 6, Band Neutrophils 5, Platelet Estimate NORMAL, Anisocytosis SLIGHT, Blood Morphology Comment , Sodium Level 141, Potassium Level 4.2, Chloride Level 112, Carbon Dioxide Level 19, Anion Gap 10, Blood Urea Nitrogen 39, Creatinine 1.99, Estimat Glomerular Filtration Rate 35, BUN/Creatinine Ratio 20, Glucose Level 255, Calcium Level 8.6, Corrected Calcium 9.6, Total Bilirubin 0.3, Aspartate Amino Transf (AST/SGOT) 72, Alanine Aminotransferase (ALT/SGPT) 32, Alkaline Phosphatase 105, Total Protein 6.1, Albumin 2.8 07/25/22 05:54: Glucometer 218 07/25/22 11:00: Glucometer 114 07/25/22 15:25: Glucometer 264 07/25/22 20:12: Glucometer 116 07/26/22 06:21: Glucometer 143 07/26/22 11:38: Glucometer 213 07/26/22 17:07: Glucometer 173 07/26/22 20:46: Glucometer 167 07/27/22 05:51: Glucometer 125 07/27/22 11:34: Glucometer 155 07/27/22 15:03: Glucometer 172 07/27/22 17:40: Vancomycin Level Trough 19.3 07/27/22 20:12: Glucometer 207 07/28/22 06:04: Glucometer 147 07/28/22 06:15: White Blood Count 12.1, Red Blood Count 3.59, Hemoglobin 10.7, Hematocrit 33, Mean Corpuscular Volume 93, Mean Corpuscular Hemoglobin 30, Mean Corpuscular Hemoglobin Concent 32, Red Cell Distribution Width 13.9, Platelet Count 295, Mean Platelet Volume 10.4, Immature Granulocyte % (Auto) 3, Neutrophils (%) (Auto) 72, Lymphocytes (%) (Auto) 11, Monocytes (%) (Auto) 8, Eosinophils (%) (Auto) 5, Basophils (%) (Auto) 1, Neutrophils # (Auto) 8.7, Lymphocytes # (Auto) 1.3, Monocytes # (Auto) 1.0, Eosinophils # (Auto) 0.6, Basophils # (Auto) 0.1, Immature Granulocyte # (Auto) 0.4, Sodium Level 143, Potassium Level 4.0, Chloride Level 112, Carbon Dioxide Level 22, Anion Gap 9, Blood Urea Nitrogen 24, Creatinine 1.48, Estimat Glomerular Filtration Rate 50, BUN/Creatinine Ratio 16, Glucose Level 155, Calcium Level 8.9, Corrected Calcium 9.8, Total Bilirubin 0.3, Aspartate Amino Transf (AST/SGOT) 24, Alanine Aminotransferase (ALT/SGPT) 37, Alkaline Phosphatase 105, Total Protein 6.0, Albumin 2.9, Vancomycin Level Trough 14.5 07/28/22 10:47: Glucometer 156 07/28/22 17:04: Glucometer 117 07/28/22 20:09: Glucometer 192 07/29/22 05:25: Glucometer 106 07/29/22 10:51: Glucometer 131 Discharge Home Medications: Active Scripts Active Oxycodone-Acetaminophen 5-325 (Oxycodone HCl/Acetaminophen) 5 Mg-325 Mg Tablet 1 Ea PO TID PRN Daptomycin 500 Mg Vial 500 Mg IV DAILY 7 Days Reported Tylenol Extra Strength (Acetaminophen) 500 Mg Tablet 1,000 Mg PO Q8H PRN Entresto 49 mg-51 mg Tablet (Sacubitril/Valsartan) 49 Mg-51 Mg Tablet 1 Ea PO BID Pantoprazole Sodium 40 Mg Tablet.dr 40 Mg PO DAILY Feosol (Ferrous Sulfate) 325 Mg (65 Mg Iron) Tablet 325 Mg PO HS Farxiga (Dapagliflozin Propanediol) 10 Mg Tablet 10 Mg PO HS Spironolactone 25 Mg Tablet 25 Mg PO DAILY Metoprolol Succinate 50 Mg Tab.er.24h 50 Mg PO HS Furosemide 40 Mg Tablet 40 Mg PO Q48H Allopurinol 100 Mg Tablet 100 Mg PO BID Clopidogrel (Clopidogrel Bisulfate) 75 Mg Tablet 75 Mg PO DAILY Flomax (Tamsulosin HCl) 0.4 Mg Cap 0.4 Mg PO HS Ambien (Zolpidem Tartrate) 10 Mg Tablet 10 Mg PO HS Bethanechol Chloride 50 Mg Tablet 50 Mg PO HS Instructions to patient/family Please see electronic discharge instructions given to patient. Diagnosis/Problems Diagnosis/Problems (1) Gangrene of toe of right foot (2) Knee pain Status: Chronic NICHOLAS GLOVER DO Jul 29, 2022 05:36
[2022-07-29 07:47] VITALS: BP 167/74
[2022-07-29] MEDS: polyethylene glycoL POWDER 17 GM (MIRALAX) PACK PO SCH (07:50)
[2022-07-29] MEDS: DOCUSATE SODIUM 100 MG (COLACE) CAP PO SCH ×2 (07:50)
[2022-07-29] MEDS: SENNOSIDES 8.6 MG (SENOKOT) TAB PO SCH (07:50)
[2022-07-29] MEDS: SENNA W/DOCUSATE (SENOKOT S) TABLET PO SCH (07:50)
[2022-07-29] MEDS: ALLOPURINOL 100 MG (ZYLOPRIM) TAB PO SCH (08:01)
[2022-07-29] MEDS: SPIRONOLACTONE 25 MG (ALDACTONE) TAB PO SCH (08:01)
[2022-07-29] MEDS: oxyCODONE/APAP 5/325MG (PERCOCET 5) TABLET PO SCH (08:01)
[2022-07-29] MEDS: SACUBITRIL/VALSARTAN 24/26 MG (ENTRESTO) TABLET PO SCH (08:01)
[2022-07-29] MEDS: meTOproloL SUCCINATE 50 MG (TOPROL XL) TAB PO SCH (08:01)
--- NOTE | 2022-07-29 08:03 | IRF PAI BIMS ---
BIMS CAM BIMS Expression of Ideas and Wants: Without Difficulty Understanding Verbal Content: Understands Brief Interview/Mental Status: Yes IRF FANNY BIMS: IRF FANNY BIMS Response (Comments) Value Repitition of Three Words Three 3 Recalls Socks Yes, No Cue Required 2 Recalls Blue Yes, No Cue Required 2 Recalls Bed Yes, After Cueing 1 Year Correct 3 Month Accurate Within 5 Days 2 Day Incorrect or No Answer 0 Total 13 CAM Mental Status Change/Baseline: 0 Inattention: 0 Disorganized thinkin Altered level of consciousness: 0 HELEN SALEH OT Jul 29, 2022 08:03
[2022-07-29] MEDS: VANCOMYCIN 750 MG/NS 250 ML IVPB IV SCH ×2 (08:04)
[2022-07-29] MEDS: COLLAGENASE 30 GM (SANTYL) TUBE TP SCH (08:07)
[2022-07-29] MEDS: HYPOCHLOROUS ACID/NaCl (VASHE) 250 ML IR PRN (08:07)
[2022-07-29 10:54] VITALS: BP 167/74
[2022-07-29 13:14] VITALS: BP 167/74
[2022-07-30] MEDS ORDERED: TROUGH ORDER-PHARMACY XX ONE (07:00)
--- NOTE | 2022-07-30 07:56 | Therapy Team Discharge Summary ---
Therapy Discharge Summary Discharge Recommendations Date of Discharge Jul 29, 2022 at 13:15 Therapy D/C Recommendations: Home w/ Family Support, Homemaker Support Physical Therapy Roll Left to Right (QC): 6 Sit to Lying (QC): 6 Lying to Sitting/Side of Bed(Q: 6 Sit to Stand (QC): 6 Chair/Aar-mf-Lwqvf Xfer(QC): 6 Toilet Transfer (QC): 4 Car Transfer (QC): 6 Does the Patient Walk: Yes Mode of Locomotion: Walk Anticipated Mode of Locomotion: Walk Walk 10 feet (QC): 6 Walk 50 ft with 2 Turns(QC): 6 Walk 150 ft (QC): 6 Walking 10ft on uneven surface: 6 Gait Assistive Device: FWW Does the Pt Use a Wheelchair: No Wheel 50 ft with 2 turns (QC): 9 Wheel 150 ft (QC): 9 #of Steps: 12 1 Step (curb) (QC): 6 4 Steps (QC): 6 12 Steps (QC): 5 Balance Sitting Static: Good Balance Sitting Dynamic: Good Balance-Standing Static: Fair Picking up an Object (QC): 5 Occupational Therapy Pt came to [facility] s/p 3rd toe amputation. At time of eval, pt was min assist for lower body dressing and footwear, SBA for toileting hygiene, showering, and oral hygiene, set up assist for upper body dressing and eating. During his stay, OT addressed ADLs, endurance, coordination, balance, and cognition tasks. Pt made good progress and met all goals, besides showering, only due to being set up. Pt has now d/c from this facility and will be d/c from skilled OT services. 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 Goals Care Home Goals PT Care Home Goals Time Frame: Aug 15, 2022 Roll Left to Right (QC): 6 Sit to Lying (QC): 6 Lying-Sitting on Side/Bed(QC): 6 Sit to Stand (QC): 6 Chair/Buo-wh-Pzulw Xfer(QC): 6 Toilet/Commode Transfer (QC): 6 Car Transfer (QC): 6 Does the Patient Walk: Yes Walk 10 feet (QC): 6 Walk 10ft-Uneven Surface(QC): 6 Walk 50ft with 2 Turns (QC): 6 Walk 150 ft (QC): 6 Does the Pt use WC or Scooter?: No Wheel 50 feet with 2 turns (QC: 9 Wheel 150 feet: 9 1 Step (curb) (QC): 6 4 Steps (QC): 6 12 Steps (QC): 6 Picking up an Object (QC): 6 OT Care Home Goals Drawing Machine Operator Goals Time Frame: Aug 05, 2022 (anticipate short stay ) Acute change in mental status: 0 Inattention: 0 Disorganized thinkin Altered level of consciousness: 0 Eating (QC): 6 (met) Oral Hygiene (QC): 6 (met) Toileting Hygiene (QC): 6 (met) Shower/Bathe Self (QC): 6 (not met: set up assist) Upper Body Dressing (QC): 6 (met) Lower Body Dressing (QC): 6 (met) On/Off Footwear (QC): 6 (met) Additional Goals: 1-Demonstrate ADL Tasks, 2-Verbalize Understanding, 3-ImproveStrength/Orly 1=Demonstrate adherence to instructed precautions during ADL tasks. 2=Patient will verbalize/demonstrate understanding of assistive devices/modifications for ADL. 3=Patient will improve strength/tolerance for activity to enable patient to per form ADL's. Amna Zavala OT Jul 30, 2022 07:56
--- NOTE | 2022-07-31 13:05 | Therapy Team Discharge Summary ---
Therapy Discharge Summary Discharge Recommendations Date of Discharge Jul 29, 2022 at 13:15 Therapy D/C Recommendations: Home w/ Family Support, Homemaker Support Physical Therapy Patient came to rehab S/P AMPUTATION (RIGHT 3RD TOE) AND SEPSIS. Upon evaluation patient performed rolling and sit to supine with independence, supine to sit CGA/SBA, sit <-> stand and transfers with CGA/SBA, car transfer CGA/SBA, ambulated 150' with a rolling walker with CGA/SBA (including 50' with at least 2 turns of 90 degrees and 10' over an uneven surface), and went up and down 12 steps using 2 handrails with CGA. Patient has been performing bed mobility and transfer training, balance and endurance training, functional strengthening, stair training, gait training, and education. Patient has made good progress and has met all of his intermediate goals except for stairs and picking up an object from the floor. Now, patient performs rolling and supine <-> sit with independence, sit <-> stand and transfers independent, car transfer independent, can ambulate 500' with a rolling walker with independence (including 50' with at least 2 turns of 90 degrees and 10' over an uneven surface), can go up and down 12 steps using 2 handrails with SBA, and can brain picker an object from the floor with setup. Patient has been discharged from this facility and will be discharged from PT at this time. Roll Left to Right (QC): 6 Sit to Lying (QC): 6 Lying to Sitting/Side of Bed(Q: 6 Sit to Stand (QC): 6 Chair/Wix-se-Epzxu Xfer(QC): 6 Toilet Transfer (QC): 4 Car Transfer (QC): 6 Does the Patient Walk: Yes Mode of Locomotion: Walk Anticipated Mode of Locomotion: Walk Walk 10 feet (QC): 6 Walk 50 ft with 2 Turns(QC): 6 Walk 150 ft (QC): 6 Walking 10ft on uneven surface: 6 Gait Assistive Device: FWW Does the Pt Use a Wheelchair: No Wheel 50 ft with 2 turns (QC): 9 Wheel 150 ft (QC): 9 #of Steps: 12 1 Step (curb) (QC): 6 4 Steps (QC): 6 12 Steps (QC): 5 Balance Sitting Static: Good Balance Sitting Dynamic: Good Balance-Standing Static: Fair Picking up an Object (QC): 5 Occupational Therapy Decreased Activ Tolerance, Decreased UE Strength, Impaired Cognition, Impaired Coordination, Impaired Funct Balance, Impaired I ADL's, Impaired Self-Care Skills Eating (QC): 6 Oral Hygiene (QC): 6 (per pt) Shower/Bathe Self (QC): 5 Upper Body Dressing (QC): 6 Lower Body Dressing (QC): 6 On/Off Footwear (QC): 6 Toileting Hygiene (QC): 6 PT [facility] Goals Ram Car Operator Goals PT [facility] Goals Time Frame: Aug 15, 2022 Roll Left to Right (QC): 6 Sit to Lying (QC): 6 Lying-Sitting on Side/Bed(QC): 6 Sit to Stand (QC): 6 Chair/Ben-jo-Fotur Xfer(QC): 6 Toilet/Commode Transfer (QC): 6 Car Transfer (QC): 6 Does the Patient Walk: Yes Walk 10 feet (QC): 6 Walk 10ft-Uneven Surface(QC): 6 Walk 50ft with 2 Turns (QC): 6 Walk 150 ft (QC): 6 Does the Pt use WC or Scooter?: No Wheel 50 feet with 2 turns (QC: 9 Wheel 150 feet: 9 1 Step (curb) (QC): 6 4 Steps (QC): 6 12 Steps (QC): 6 Picking up an Object (QC): 6 OT [facility] Goals Chcf Goals Time Frame: Aug 05, 2022 (anticipate short stay ) Acute change in mental status: 0 Inattention: 0 Disorganized thinkin Altered level of consciousness: 0 Eating (QC): 6 (met) Oral Hygiene (QC): 6 (met) Toileting Hygiene (QC): 6 (met) Shower/Bathe Self (QC): 6 (not met: set up assist) Upper Body Dressing (QC): 6 (met) Lower Body Dressing (QC): 6 (met) On/Off Footwear (QC): 6 (met) Additional Goals: 1-Demonstrate ADL Tasks, 2-Verbalize Understanding, 3- ImproveStrength/Orly 1=Demonstrate adherence to instructed precautions during ADL tasks. 2=Patient will verbalize/demonstrate understanding of assistive devices/ modifications for ADL. 3=Patient will improve strength/tolerance for activity to enable patient to perform ADL's. EM RENE PT Jul 31, 2022 13:05
== END 2022-07-29 13:15 | disposition home or self-care (01) | DRG 300 ==
PROVIDERS: ADMIT Internal Medicine; ATTEND Internal Medicine
DX: E11.52 Type 2 diabetes mellitus with diabetic peripheral angiopathy with gangrene (principal); E46 Unspecified protein-calorie malnutrition; M86.171 Other acute osteomyelitis, right ankle and foot; L03.115 Cellulitis of right lower limb; N18.4 Chronic kidney disease, stage 4 (severe); I13.0 Hypertensive heart and chronic kidney disease with heart failure and stage 1 through stage 4 chronic kidney disease, or unspecified chronic kidney disease; I50.42 Chronic combined systolic (congestive) and diastolic (congestive) heart failure; T87.81 Dehiscence of amputation stump; E11.69 Type 2 diabetes mellitus with other specified complication; E11.42 Type 2 diabetes mellitus with diabetic polyneuropathy; L03.031 Cellulitis of right toe; I25.5 Ischemic cardiomyopathy; E11.22 Type 2 diabetes mellitus with diabetic chronic kidney disease; I25.10 Atherosclerotic heart disease of native coronary artery without angina pectoris; M10.9 Gout, unspecified; M17.12 Unilateral primary osteoarthritis, left knee; J44.9 Chronic obstructive pulmonary disease, unspecified; N40.0 Benign prostatic hyperplasia without lower urinary tract symptoms; D64.9 Anemia, unspecified; K21.9 Gastro-esophageal reflux disease without esophagitis; I08.0 Rheumatic disorders of both mitral and aortic valves; E78.00 Pure hypercholesterolemia, unspecified; I70.1 Atherosclerosis of renal artery; B95.62 Methicillin resistant Staphylococcus aureus infection as the cause of diseases classified elsewhere; Z79.84 Long term (current) use of oral hypoglycemic drugs; Z68.24 Body mass index [BMI] 24.0-24.9, adult; Z87.891 Personal history of nicotine dependence; Z95.0 Presence of cardiac pacemaker
CPT/HCPCS: 36415; 80053; 80202; 82947; 85007; 85025; 85027; 87070; 87077; 87186; 87205; 94640; 94760

== ENCOUNTER → 2022-08-03 | Outpatient (CLI) | payer MEDICARE | LOC: WOUNDCARE 10:07 | PROVIDERS: ATTEND Family Medicine | DX: T81.31XA Disruption of external operation (surgical) wound, not elsewhere classified, initial encounter (principal); T87.89 Other complications of amputation stump; M86.171 Other acute osteomyelitis, right ankle and foot; B95.62 Methicillin resistant Staphylococcus aureus infection as the cause of diseases classified elsewhere; E11.621 Type 2 diabetes mellitus with foot ulcer; I70.235 Atherosclerosis of native arteries of right leg with ulceration of other part of foot; E44.0 Moderate protein-calorie malnutrition; E11.40 Type 2 diabetes mellitus with diabetic neuropathy, unspecified; E11.22 Type 2 diabetes mellitus with diabetic chronic kidney disease; N18.30 Chronic kidney disease, stage 3 unspecified | CPT/HCPCS: 11042; 87070; 87205; G0463 ==

== ENCOUNTER → 2022-08-03 | Outpatient (RCR) | payer MEDICARE ==
[2022-07-30 09:30] VITALS: BP 157/77
[2022-07-30] MEDS: DAPTOmycin 500 MG/NS 50 ML IVPB IV SCH ×2 (09:46)
[2022-07-31] MEDS: DAPTOmycin 500 MG/NS 50 ML IVPB IV SCH ×2 (09:12)
[2022-07-31 09:32] VITALS: BP 156/76
[2022-08-01] MEDS: DAPTOmycin 500 MG/NS 50 ML IVPB IV SCH ×2 (09:16)
[2022-08-01 09:20] VITALS: BP 149/68
[2022-08-02] MEDS: DAPTOmycin 500 MG/NS 50 ML IVPB IV SCH ×2 (09:25)
[2022-08-02 09:34] VITALS: BP 157/83
[~2022-08-03] VITALS: Ht 172.7 cm; Wt 76.7 kg
[2022-08-03 08:55] VITALS: BP 155/92
[2022-08-03] MEDS: DAPTOmycin 500 MG/NS 50 ML IVPB IV SCH ×2 (09:24)
== END | disposition home or self-care (01) ==
LOC: SDC 07-30 09:01
PROVIDERS: ATTEND Internal Medicine
DX: Z51.81 Encounter for therapeutic drug level monitoring (principal); Z79.899 Other long term (current) drug therapy
CPT/HCPCS: 96365

== ENCOUNTER → 2022-08-04 | Outpatient (CLI) | payer MEDICARE ==
[2022-08-04 09:54] LABS: CALCIUM 9.4 MG/DL (8.5-10.1); CREATININE SERUM 1.74 MG/DL (0.60-1.30); POTASSIUM 3.9 MMOL/L (3.6-5.0)
[2022-08-04 10:07] LABS: ERYTHROCYTE SEDIMENTATION RATE 60 MM/HR (0-30)
[2022-08-04 10:11] LABS: BASOPHILS # (AUTO) 0.1 10^3/uL (0.0-0.1); BASOPHILS % (AUTO) 1 % (0-10); EOSINOPHILS # (AUTO) 0.2 10^3/uL (0.0-0.3); EOSINOPHILS % (AUTO) 2 % (0-10); HEMATOCRIT 38 % (40-54); HEMOGLOBIN 12.3 g/dL (13.3-17.7); LYMPHOCYTES # (AUTO) 1.3 10^3/uL (1.0-4.0); LYMPHOCYTES % (AUTO) 15 % (12-44); MEAN CORPUSCULAR HEMOGLOBIN 30 pg (25-34); MEAN CORPUSCULAR HGB CONC 33 g/dL (32-36); MEAN CORPUSCULAR VOLUME 91 fL (80-99); MEAN PLATELET VOLUME 10.5 fL (9.0-12.2); MONOCYTES % (AUTO) 11 % (0-12); NEUTROPHILS # (AUTO) 6.2 10^3/uL (1.8-7.8); NEUTROPHILS % (AUTO) 70 % (42-75); PLATELET COUNT 451 10^3/uL (130-400); WHITE BLOOD COUNT 8.9 10^3/uL (4.3-11.0)
== END ==
LOC: SDC 08:54
PROVIDERS: ATTEND Family Medicine
DX: T81.31XA Disruption of external operation (surgical) wound, not elsewhere classified, initial encounter (principal); E11.621 Type 2 diabetes mellitus with foot ulcer
CPT/HCPCS: 36415; 80048; 84134; 85025; 85652; 86141

== ENCOUNTER → 2022-08-13 | Outpatient (CLI) | payer MEDICARE | LOC: WOUNDCARE 14:41 | PROVIDERS: ATTEND Family Medicine | DX: T87.89 Other complications of amputation stump (principal); T81.31XA Disruption of external operation (surgical) wound, not elsewhere classified, initial encounter; M86.171 Other acute osteomyelitis, right ankle and foot; B95.61 Methicillin susceptible Staphylococcus aureus infection as the cause of diseases classified elsewhere; E11.621 Type 2 diabetes mellitus with foot ulcer; I70.235 Atherosclerosis of native arteries of right leg with ulceration of other part of foot; E44.0 Moderate protein-calorie malnutrition; E11.40 Type 2 diabetes mellitus with diabetic neuropathy, unspecified; E11.22 Type 2 diabetes mellitus with diabetic chronic kidney disease; N18.30 Chronic kidney disease, stage 3 unspecified; E11.52 Type 2 diabetes mellitus with diabetic peripheral angiopathy with gangrene | CPT/HCPCS: 11042; G0463 ==

== ENCOUNTER 2022-08-20 13:39 | Outpatient (RCR) | payer MEDICARE ==
[2022-08-04 10:00] VITALS: BP 148/76
[2022-08-05 09:55] VITALS: BP 152/81
[~2022-08-20] VITALS: Ht 172.7 cm; Wt 76.7 kg
[~2022-08-20 13:39] MED LIST changes: +CLOP-31 PO; -CLOP75TA69 PO; +DAPTOmycin 500 MG/NS 50 ML IVPB IV SCH
[2022-08-20 13:55] VITALS: BP 117/78
== END 2022-09-02 | disposition still patient (30) ==
LOC: SDC 13:39
PROVIDERS: ATTEND Internal Medicine
DX: Z51.81 Encounter for therapeutic drug level monitoring (principal)
CPT/HCPCS: 96365; 99211

== ENCOUNTER → 2022-08-20 | Outpatient (CLI) | payer MEDICARE | LOC: WOUNDCARE 13:57 | PROVIDERS: ATTEND Family Medicine | DX: T87.89 Other complications of amputation stump (principal); T81.31XA Disruption of external operation (surgical) wound, not elsewhere classified, initial encounter; M86.171 Other acute osteomyelitis, right ankle and foot; B95.62 Methicillin resistant Staphylococcus aureus infection as the cause of diseases classified elsewhere; E11.621 Type 2 diabetes mellitus with foot ulcer; I70.235 Atherosclerosis of native arteries of right leg with ulceration of other part of foot; E44.0 Moderate protein-calorie malnutrition; E11.40 Type 2 diabetes mellitus with diabetic neuropathy, unspecified; E11.22 Type 2 diabetes mellitus with diabetic chronic kidney disease; N18.30 Chronic kidney disease, stage 3 unspecified; E11.52 Type 2 diabetes mellitus with diabetic peripheral angiopathy with gangrene | CPT/HCPCS: 11042; G0463 ==

== ENCOUNTER → 2022-08-31 | Outpatient (CLI) | payer MEDICARE ==
[~2022-08-31] MED LIST changes: -CLOP-31 PO; +CLOP75TA69 PO; -DAPTOmycin 500 MG/NS 50 ML IVPB IV SCH
== END ==
LOC: WOUNDCARE 13:59
PROVIDERS: ATTEND Family Medicine
DX: T87.89 Other complications of amputation stump (principal); T81.31XA Disruption of external operation (surgical) wound, not elsewhere classified, initial encounter; M86.171 Other acute osteomyelitis, right ankle and foot; B95.62 Methicillin resistant Staphylococcus aureus infection as the cause of diseases classified elsewhere; E11.621 Type 2 diabetes mellitus with foot ulcer; I70.235 Atherosclerosis of native arteries of right leg with ulceration of other part of foot; E44.0 Moderate protein-calorie malnutrition; E11.40 Type 2 diabetes mellitus with diabetic neuropathy, unspecified; E11.22 Type 2 diabetes mellitus with diabetic chronic kidney disease; N18.30 Chronic kidney disease, stage 3 unspecified; E11.52 Type 2 diabetes mellitus with diabetic peripheral angiopathy with gangrene; I96 Gangrene, not elsewhere classified
CPT/HCPCS: 11042; G0463

== ENCOUNTER → 2022-09-10 | Outpatient (CLI) | payer MEDICARE ==
[~2022-09-10] MED LIST changes: +CLOP-31 PO; -CLOP75TA69 PO
== END ==
LOC: WOUNDCARE 14:53
PROVIDERS: ATTEND Family Medicine
DX: T87.89 Other complications of amputation stump (principal); T81.31XA Disruption of external operation (surgical) wound, not elsewhere classified, initial encounter; E11.621 Type 2 diabetes mellitus with foot ulcer; E11.40 Type 2 diabetes mellitus with diabetic neuropathy, unspecified; E11.22 Type 2 diabetes mellitus with diabetic chronic kidney disease; N18.30 Chronic kidney disease, stage 3 unspecified; B95.62 Methicillin resistant Staphylococcus aureus infection as the cause of diseases classified elsewhere; I70.235 Atherosclerosis of native arteries of right leg with ulceration of other part of foot; E44.0 Moderate protein-calorie malnutrition; L97.509 Non-pressure chronic ulcer of other part of unspecified foot with unspecified severity; E11.52 Type 2 diabetes mellitus with diabetic peripheral angiopathy with gangrene; I96 Gangrene, not elsewhere classified
CPT/HCPCS: 11042; G0463

== ENCOUNTER → 2022-09-22 | Outpatient (CLI) | payer MEDICARE | LOC: WOUNDCARE 14:42 | PROVIDERS: ATTEND Family Medicine | DX: I96 Gangrene, not elsewhere classified (principal); T87.89 Other complications of amputation stump; T81.31XA Disruption of external operation (surgical) wound, not elsewhere classified, initial encounter; D69.59 Other secondary thrombocytopenia; M86.171 Other acute osteomyelitis, right ankle and foot; B95.62 Methicillin resistant Staphylococcus aureus infection as the cause of diseases classified elsewhere; E11.621 Type 2 diabetes mellitus with foot ulcer; I70.235 Atherosclerosis of native arteries of right leg with ulceration of other part of foot; N18.30 Chronic kidney disease, stage 3 unspecified; E44.0 Moderate protein-calorie malnutrition; Z68.24 Body mass index [BMI] 24.0-24.9, adult | CPT/HCPCS: 11042; G0463 ==

== ENCOUNTER → 2022-09-22 | Outpatient (CLI) | payer MEDICARE ==
--- NOTE | 2022-09-22 18:22 | Diagnostic Imaging Report ---
PROCEDURE: MRI right lower extremity without contrast. TECHNIQUE: Multiplanar, multisequence non contrast-enhanced MRI of the right lower extremity was accomplished. INDICATION: Disruption of external operation surgical wound in the right foot. History of necrotic wound in the right foot. COMPARISON: 07/21/2022. FINDINGS: There is significant motion artifact on the exam which results in suboptimal evaluation. No acute fracture is seen. There is bone marrow edema and T1-weighted hypointensity at the third metatarsal head. Imaging findings are compatible with osteomyelitis. Postsurgical change could have a similar appearance, however there is a deep ulceration which nearly reaches the bone. There is a T1 hyperintense crescent-shaped structure with STIR hypointensity just distal to the third metatarsal head. This could represent a small bone fragment or possibly a hematoma. No acute fracture is seen. There are moderate degenerative changes in the first MTP joint and degenerative changes throughout the interphalangeal joints. There is degenerative change in the first IP joint with mild lateral angulation. Susceptibility foci artifact are noted at the great toe, similar to the prior exam. No definite tendon tear is appreciated. There is generalized muscular atrophy and edema, likely from a neurogenic source. There is moderate dorsal subcutaneous edema. IMPRESSION: 1. Postsurgical changes from third toe amputation with signal change of the third metatarsal head, concerning for osteomyelitis. 2. Small bone fragment versus small hematoma adjacent to the third metatarsal head. 3. Soft tissue ulceration at the amputation site. No drainable fluid collection is seen on this noncontrast exam. 4. Redemonstrated susceptibility artifact at the great toe. Dictated by: Dictated on workstation # [id number]
== END ==
LOC: RAD 14:11
PROVIDERS: ATTEND Family Medicine
DX: T81.31XA Disruption of external operation (surgical) wound, not elsewhere classified, initial encounter (principal); T87.89 Other complications of amputation stump; M86.171 Other acute osteomyelitis, right ankle and foot; B95.62 Methicillin resistant Staphylococcus aureus infection as the cause of diseases classified elsewhere; E11.621 Type 2 diabetes mellitus with foot ulcer; I70.235 Atherosclerosis of native arteries of right leg with ulceration of other part of foot; E44.0 Moderate protein-calorie malnutrition; E11.40 Type 2 diabetes mellitus with diabetic neuropathy, unspecified; N18.30 Chronic kidney disease, stage 3 unspecified

== ENCOUNTER → 2022-10-01 | Outpatient (CLI) | payer MEDICARE | LOC: WOUNDCARE 14:47 | PROVIDERS: ATTEND Family Medicine | DX: T81.31XA Disruption of external operation (surgical) wound, not elsewhere classified, initial encounter (principal); E11.621 Type 2 diabetes mellitus with foot ulcer; I70.235 Atherosclerosis of native arteries of right leg with ulceration of other part of foot; E44.0 Moderate protein-calorie malnutrition; E11.40 Type 2 diabetes mellitus with diabetic neuropathy, unspecified; I12.9 Hypertensive chronic kidney disease with stage 1 through stage 4 chronic kidney disease, or unspecified chronic kidney disease; N18.30 Chronic kidney disease, stage 3 unspecified; D63.1 Anemia in chronic kidney disease; I96 Gangrene, not elsewhere classified | CPT/HCPCS: 11042; 87070; 87205; G0463 ==

== ENCOUNTER → 2022-10-08 | Outpatient (CLI) | payer MEDICARE | LOC: WOUNDCARE 14:50 | PROVIDERS: ATTEND Family Medicine | DX: E11.621 Type 2 diabetes mellitus with foot ulcer (principal); T81.31XA Disruption of external operation (surgical) wound, not elsewhere classified, initial encounter; T87.89 Other complications of amputation stump; I70.235 Atherosclerosis of native arteries of right leg with ulceration of other part of foot; E44.0 Moderate protein-calorie malnutrition; E11.40 Type 2 diabetes mellitus with diabetic neuropathy, unspecified; E11.22 Type 2 diabetes mellitus with diabetic chronic kidney disease; N18.30 Chronic kidney disease, stage 3 unspecified; D63.1 Anemia in chronic kidney disease; E11.52 Type 2 diabetes mellitus with diabetic peripheral angiopathy with gangrene; I96 Gangrene, not elsewhere classified | CPT/HCPCS: 11042; G0463 ==

== ENCOUNTER 2022-10-13 09:44 | Emergency (ER) | payer MEDICARE ==
[~2022-10-13] VITALS: Ht 177.8 cm; Wt 76.7 kg
[2022-10-13] MEDS ORDERED: LACTATED RINGERS 1,000 ML IV ONE (10:15)
[2022-10-13 10:23] LABS: BASOPHILS # (AUTO) 0.1 10^3/uL (0.0-0.1); BASOPHILS % (AUTO) 1 % (0-10); EOSINOPHILS # (AUTO) 0.2 10^3/uL (0.0-0.3); EOSINOPHILS % (AUTO) 2 % (0-10); HEMATOCRIT 38 % (40-54); HEMOGLOBIN 11.7 g/dL (13.3-17.7); LYMPHOCYTES # (AUTO) 1.3 10^3/uL (1.0-4.0); LYMPHOCYTES % (AUTO) 16 % (12-44); MEAN CORPUSCULAR HEMOGLOBIN 29 pg (25-34); MEAN CORPUSCULAR HGB CONC 31 g/dL (32-36); MEAN CORPUSCULAR VOLUME 93 fL (80-99); MONOCYTES # (AUTO) 1.1 10^3/uL (0.0-1.0); MONOCYTES % (AUTO) 14 % (0-12); NEUTROPHILS # (AUTO) 5.6 10^3/uL (1.8-7.8); NEUTROPHILS % (AUTO) 67 % (42-75); PLATELET COUNT 462 10^3/uL (130-400); WHITE BLOOD COUNT 8.3 10^3/uL (4.3-11.0)
[2022-10-13 10:42] LABS: ALBUMIN 3.6 GM/DL (3.2-4.5); BILIRUBIN,TOTAL 1.3 MG/DL (0.1-1.0); CALCIUM 9.2 MG/DL (8.5-10.1); CREATININE SERUM 1.43 MG/DL (0.60-1.30); POTASSIUM 3.1 MMOL/L (3.6-5.0); TOTAL PROTEIN 6.5 GM/DL (6.4-8.2)
--- NOTE | 2022-10-13 10:45 | Diagnostic Imaging Report ---
INDICATION: Weakness and cough. COMPARISON: Exam compared to 05/15/2018. FINDINGS: The heart is enlarged. There is prominence of the central vascularity. There is small-volume left pleural fluid, not clearly changed. Perihilar edema is suspected. IMPRESSION: Slight increased heart size, venous caliber, and perihilar edema. Similar small left effusion. No pneumothorax. Interval progression of failure-type pattern or sequelae of hypervolemia suspected. Dictated by: Dictated on workstation # [id number]
[2022-10-13 10:46] LABS: ERYTHROCYTE SEDIMENTATION RATE 19 MM/HR (0-30)
[2022-10-13 11:03] LABS: TSH (THYROID ANALYZER) 1.53 UIU/ML (0.35-4.94)
--- NOTE | 2022-10-13 11:05 | Diagnostic Imaging Report ---
EXAMINATION: CT head without contrast. TECHNIQUE: Multiple contiguous axial images were obtained through the brain without the use of intravenous contrast. All CT scans use one or more of the following dose optimizing techniques: automated exposure control, MA and/or KvP adjustment based on patient size and exam type or iterative reconstruction. HISTORY: Weakness. Headaches. COMPARISON: 05/17/2018. FINDINGS: No large acute territorial ischemia, mass, or hemorrhage. No midline shift or mass effect. Decreased attenuation is seen in the periventricular and subcortical white matter. The ventricles and cortical sulci are prominent. The basilar cisterns are patent and unremarkable. The orbits are normal. Paranasal sinuses are normal. Mastoid air cells are clear. No soft tissue abnormality is seen. No osseus lesions or fractures are seen. IMPRESSION: 1. No large acute territorial ischemia, mass, or hemorrhage. 2. Chronic microvascular disease. 3. Generalized parenchymal volume loss. Dictated by: Dictated on workstation # [id number]
--- NOTE | 2022-10-13 11:15 | ED General ---
General Chief Complaint: General Problems/Pain Stated Complaint: RESPIRATORY ILLNESS Nursing Triage Note: ARRIVES VIA WHEELCHAIR TO ROOM 6 WITH C/O GENERALIZED WEAKNESS AND EXTREME TIREDNESS. DENIES COUGH, N/V/D, PAIN, DIFFICULTY WITH BOWEL OR BLADDER HABITS. VERBALIZES OFF AND ON HEADACHE HOWEVER DENIES HEADACHE AT THIS TIME. Source of Information: Patient History of Present Illness Date Seen by Provider: Oct 13, 2022 PCP: DR. GLOVER MEASUREMENT SPECIALIST: DR. HINKLE Allergies and Home Medications Allergies Coded Allergies: No Known Drug Allergies (Unverified , 01/25/17) Patient Home Medication List Acetaminophen (Tylenol Extra Strength) 500 Mg Tablet, 1,000 MG PO Q8H PRN for PAIN-MILD (1-4), (Reported) Entered as Reported by: MARIA DE JESUS PIEDRA on 07/21/22 1115 Allopurinol (Allopurinol) 100 Mg Tablet, 100 MG PO BID, (Reported) Entered as Reported by: MARIA DE JESUS PIEDRA on 12/06/20 0857 Bethanechol Chloride (Bethanechol Chloride) 50 Mg Tablet, 50 MG PO HS, (Reported) Entered as Reported by: MARIA DE JESUS PIEDRA on 12/06/20 0857 Clopidogrel Bisulfate (Clopidogrel) 75 Mg Tablet, 75 MG PO DAILY, (Reported) Entered as Reported by: MARIA DE JESUS PIEDRA on 12/06/20 0857 Dapagliflozin Propanediol (Farxiga) 10 Mg Tablet, 10 MG PO HS, (Reported) Entered as Reported by: GABRIEL MEDINA on 07/20/22 181 Daptomycin (Daptomycin) 500 Mg Vial, 500 MG IV DAILY Prescribed by: NICHOLAS GLOVER on 07/27/22 1030 Ferrous Sulfate (Feosol) 325 Mg (65 Mg Iron) Tablet, 325 MG PO HS, (Reported) Entered as Reported by: GABRIEL MEDINA on 07/20/22 182 Furosemide (Furosemide) 40 Mg Tablet, 40 MG PO Q48H, (Reported) Entered as Reported by: MARIA DE JESUS PIEDRA on 12/06/20 0901 Metoprolol Succinate (Metoprolol Succinate) 50 Mg Tab.er.24h, 50 MG PO HS, (Reported) Entered as Reported by: GABRIEL MEDINA on 07/20/22 181 Oxycodone HCl/Acetaminophen (Oxycodone-Acetaminophen 5-325) 5 Mg-325 Mg Tablet, 1 EA PO TID PRN for PAIN-MODERATE (5-7) Prescribed by: NICHOLAS GLOVER on 07/29/22 0535 Pantoprazole Sodium (Pantoprazole Sodium) 40 Mg Tablet.dr, 40 MG PO DAILY, (Reported) Entered as Reported by: MARIA DE JESUS PIEDRA on 07/21/22 1115 Sacubitril/Valsartan (Entresto 49 mg-51 mg Tablet) 49 Mg-51 Mg Tablet, 1 EA PO BID, (Reported) Entered as Reported by: MARIA DE JESUS PIEDRA on 07/21/22 1115 Spironolactone (Spironolactone) 25 Mg Tablet, 25 MG PO DAILY, (Reported) Entered as Reported by: GABRIEL MEDINA on 07/20/22 1810 Tamsulosin HCl (Flomax) 0.4 Mg Cap, 0.4 MG PO HS, (Reported) Entered as Reported by: MARIA DE JESUS PIEDRA on 12/06/20 0857 Zolpidem Tartrate (Ambien) 10 Mg Tablet, 10 MG PO HS, (Reported) Entered as Reported by: MARIA DE JESUS PIEDRA on 12/06/20 0857 Review of Systems Review of Systems Constitutional: see HPI; No chills, No diaphoresis, No dizziness, No fever; malaise, weakness, other (FATIGUE) EENTM: no symptoms reported Respiratory: no symptoms reported; No cough, No short of breath Cardiovascular: no symptoms reported; No chest pain, No edema, No palpitations, No syncope Gastrointestinal: no symptoms reported; No abdominal pain, No constipation, No diarrhea, No loss of appetite, No nausea, No vomiting Genitourinary: no symptoms reported Musculoskeletal: no symptoms reported Skin: no symptoms reported Psychiatric/Neurological: No Symptoms Reported; Denies Headache, Denies Numbness, Denies Paresthesia, Denies Seizure, Denies Tingling Hematologic/Lymphatic: No Symptoms Reported Immunological/Allergic: no symptoms reported Past Zcqsgwo-Xgjokc-Mrixru Hx Patient Social History Tobacco Use?: No Use of E-Cig and/or Vaping dev: No Substance use?: No Alcohol Use?: No Pt feels they are or have been: No Immunizations Up To Date PED Vaccines UTD: No First/Initial COVID19 Vaccinat: 2020 Second COVID19 Vaccination Gino: 2020 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 Surgeries: Yes (Mass removed from neck 2009; EGD; Colonoscopy) Pacemaker Respiratory: No Pneumonia, COPD Currently Using CPAP: No Currently Using BIPAP: No Cardiac: Yes (Heart stents) Coronary Artery Disease, High Cholesterol, Hypertension, Valvular Heart Disease Neurological: Yes Neuropathy Genitourinary: Yes (Retention) Benign Prostatic Hyperpl, Renal Failure Gastrointestinal: No Gastroesophageal Reflux Musculoskeletal: Yes Arthritis, Chronic Back Pain, Gout Endocrine: Yes Diabetes, Non-Insulin dep HEENT: Yes Cataract Loss of Vision: Denies Hearing Impairment: Denies Cancer: No Psychosocial: No Integumentary: No Blood Disorders: No Family Medical History No Pertinent Family Hx Physical Exam Vital Signs Vital Signs - First Documented 10/13/22 09:55 Temp 36.6 Pulse 92 Resp 16 B/P (MAP) 144/96 (112) Pulse Ox 94 O2 Delivery Room Air Capillary Refill : Less Than 3 Seconds Height, Weight, BMI Height: 5'11.00" Weight: 195lbs. 11.2oz. 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 Norm as Tested Skin: Normal Color, Warm/Dry; No Rash Progress/Results/Core Measures Suspected Sepsis SIRS Temperature: Pulse: 92 Respiratory Rate: 16 Laboratory Tests 10/13/22 10:10: White Blood Count 8.3 Blood Pressure 144 /96 Mean: 112 Laboratory Tests 10/13/22 10:10: Creatinine 1.43H, INR Comment 1.2, Platelet Count 462H, Total Bilirubin 1.3H Results/Orders Lab Results Laboratory Tests Test 10/13/22 10:00 10/13/22 10:10 10/13/22 11:31 10/13/22 12:10 Range/Units Influenza Type A (RT-PCR) Not Detected Not Detecte Influenza Type B (RT-PCR) Not Detected Not Detecte SARS-CoV-2 RNA (RT-PCR) Not Detected Not Detecte White Blood Count 8.3 4.3-11.0 10^3/uL Red Blood Count 4.07 L 4.30-5.52 10^6/uL Hemoglobin 11.7 L 13.3-17.7 g/dL Hematocrit 38 L 40-54 % Mean Corpuscular Volume 93 80-99 fL Mean Corpuscular Hemoglobin 29 25-34 pg Mean Corpuscular Hemoglobin Concent 31 L 32-36 g/dL Red Cell Distribution Width 18.2 H 10.0-14.5 % Platelet Count 462 H 130-400 10^3/uL Mean Platelet Volume 11.0 9.0-12.2 fL Immature Granulocyte % (Auto) 0 % Neutrophils (%) (Auto) 67 42-75 % Lymphocytes (%) (Auto) 16 12-44 % Monocytes (%) (Auto) 14 H 0-12 % Eosinophils (%) (Auto) 2 0-10 % Basophils (%) (Auto) 1 0-10 % Neutrophils # (Auto) 5.6 1.8-7.8 10^3/uL Lymphocytes # (Auto) 1.3 1.0-4.0 10^3/uL Monocytes # (Auto) 1.1 H 0.0-1.0 10^3/uL Eosinophils # (Auto) 0.2 0.0-0.3 10^3/uL Basophils # (Auto) 0.1 0.0-0.1 10^3/uL Immature Granulocyte # (Auto) 0.0 0.0-0.1 10^3/uL Erythrocyte Sedimentation Rate 19 0-30 MM/HR Prothrombin Time 15.4 H 12.2-14.7 SEC INR Comment 1.2 0.8-1.4 Activated Partial Thromboplast Time 40 H 24-35 SEC Sodium Level 143 135-145 MMOL/L Potassium Level 3.1 L 3.6-5.0 MMOL/L Chloride Level 108 H 98-107 MMOL/L Carbon Dioxide Level 23 21-32 MMOL/L Anion Gap 12 5-14 MMOL/L Blood Urea Nitrogen 17 7-18 MG/DL Creatinine 1.43 H 0.60-1.30 MG/DL Estimat Glomerular Filtration Rate 52 BUN/Creatinine Ratio 12 Glucose Level 169 H 70-105 MG/DL Calcium Level 9.2 8.5-10.1 MG/DL Corrected Calcium 9.5 8.5-10.1 MG/DL Magnesium Level 2.0 1.6-2.4 MG/DL Total Bilirubin 1.3 H 0.1-1.0 MG/DL Aspartate Amino Transf (AST/SGOT) 66 H 5-34 U/L Alanine Aminotransferase (ALT/SGPT) 93 H 0-55 U/L Alkaline Phosphatase 112 40-136 U/L Troponin I 0.074 H 0.067 H <0.028 NG/ML C-Reactive Protein High Sensitivity 4.46 H 0.00-0.50 MG/DL B-Type Natriuretic Peptide 7224.9 H <100.0 PG/ML Total Protein 6.5 6.4-8.2 GM/DL Albumin 3.6 3.2-4.5 GM/DL Amylase Level 31 25-125 U/L TSH [place] Testing 1.53 0.35-4.94 UIU/ML Urine Color YELLOW Urine Clarity CLEAR Urine pH 5.5 5-9 Urine Specific [place] 1.025 H 1.016-1.022 Urine Protein TRACE H NEGATIVE Urine Glucose (UA) 3+ H NEGATIVE Urine Ketones TRACE H NEGATIVE Urine Nitrite NEGATIVE NEGATIVE Urine Bilirubin NEGATIVE NEGATIVE Urine Urobilinogen 1.0 < = 1.0 MG/DL Urine Leukocyte Esterase NEGATIVE NEGATIVE Urine RBC (Auto) NEGATIVE NEGATIVE Urine RBC NONE /HPF Urine WBC 0-2 /HPF Urine Squamous Epithelial Cells 0-2 /HPF Urine Crystals PRESENT H /LPF Urine Amorphous Sediment RARE OLGA URATES H /LPF Urine Bacteria NEGATIVE /HPF Urine Casts NONE /LPF Urine Mucus NEGATIVE /LPF Urine Culture Indicated NO My Orders Orders - ORTIZ JOAQUIN DO Covid 19 Inhouse Test (10/13/22 09:54) Influenza A And B By Pcr (10/13/22 09:54) Isolation Central Supply Req (10/13/22 09:54) Ed Iv/Invasive Line Start (10/13/22 10:03) Ekg Tracing (10/13/22 10:03) Monitor-Rhythm Ecg Trace Only (10/13/22 10:03) Amylase (10/13/22 10:03) Cbc With Automated Diff (10/13/22 10:03) Comprehensive Metabolic Panel (10/13/22 10:03) Hs C Reactive Protein (10/13/22 10:03) Magnesium (10/13/22 10:03) Thyroid Analyzer (10/13/22 10:03) Ua Culture If Indicated (10/13/22 10:03) Erythrocyte Sedimentation Rate (10/13/22 10:03) Troponin I Coke (10/13/22 10:03) Ed Iv/Invasive Line Start (10/13/22 10:03) Lactated Ringers (Lr 1000 Ml Iv Solution (10/13/22 10:15) Chest 1 View, Ap/Pa Only (10/13/22 10:09) Ct Head Wo-R/O Stroke (10/13/22 10:40) Bnp [place] (10/13/22 11:15) Protime With Inr (10/13/22 11:15) Partial Thromboplastin Time (10/13/22 11:15) Ed Admission (Communication) (10/13/22 11:47) Troponin I Coke (10/13/22 12:07) Furosemide Injection (Lasix Injection) (10/13/22 12:45) Furosemide Injection (Lasix Injection) (10/13/22 13:30) Potassium Chloride (Tablet) (Klor Con Ta (10/13/22 13:30) Potassium Chloride (Tablet) (Klor Con Ta (10/13/22 15:45) Heart Healthy (10/13/22 Dinner) Medications Given in ED Current Medications Medications Dose Ordered Sig/Roman Route Start Time Stop Time Status Last Admin Dose Admin Furosemide 40 mg ONCE ONCE IVP 10/13/22 12:45 10/13/22 12:46 DC 10/13/22 13:29 40 MG Furosemide 40 mg ONCE ONCE IVP 10/13/22 13:30 10/13/22 13:31 DC 10/13/22 13:29 40 MG Lactated Ringer's 1,000 ml @ 0 mls/hr Q0M ONCE IV 10/13/22 10:15 10/13/22 10:16 DC 10/13/22 11:20 1,000 MLS/HR Potassium Chloride 10 meq ONCE ONCE PO 10/13/22 13:30 10/13/22 13:31 DC 10/13/22 13:27 10 MEQ Potassium Chloride 40 meq ONCE ONCE PO 10/13/22 15:45 10/13/22 15:46 DC 10/13/22 15:56 40 MEQ Vital Signs/I&O 10/13/22 09:55 Temp 36.6 Pulse 92 Resp 16 B/P (MAP) 144/96 (112) Pulse Ox 94 O2 Delivery Room Air Capillary Refill : Less Than 3 Seconds Blood Pressure Mean: 112 Progress Note : Progress Note PT HELD AND BOARDED IN ER UNTIL BED BECOMES AVAILABLE. 1745--PT SITTING UP ON SIDE OF BED, AND HAS EATEN DINNER TRAY. HE HAS NO COMPLAINTS VITALS ARE STABLE. Diagnostic Imaging Comments PER RADIOLOGIST REPORTS AT 1115 CXR-- FINDINGS: The heart is enlarged. There is prominence of the central vascularity. There is small-volume left pleural fluid, not clearly changed. Perihilar edema is suspected. IMPRESSION: Slight increased heart size, venous caliber, and perihilar edema. Similar small left effusion. No pneumothorax. Interval progression of failure-type pattern or sequelae of hypervolemia suspected. CT HEAD-- Reviewed: Reviewed by Me Departure Impression Primary Impression: Elevated troponin Additional Impressions: Generalized weakness CHF (congestive heart failure) Hypokalemia CKD (chronic kidney disease) NIDDM Mild anemia CAD (coronary artery disease) Peripheral artery disease HTN (hypertension) Disposition: ADMITTED INPATIENT Condition: Stable Departure-Patient Inst. Referrals: NICHOLAS GLOVER DO (PCP/Family) Primary Care Physician ORTIZ JOAQUIN DO Oct 13, 2022 11:15
[2022-10-13 11:39] LABS: CLARITY,URINE CLEAR; COLOR,URINE YELLOW; GLUCOSE, URINE (UA) 3+ (NEGATIVE); KETONES,URINE TRACE (NEGATIVE); LEUKOCYTE ESTERASE ,URINE NEGATIVE (NEGATIVE); NITRITE,URINE NEGATIVE (NEGATIVE); PH,URINE 5.5 (5-9); PROTEIN,URINE TRACE (NEGATIVE)
[2022-10-13 11:42] LABS: INR 1.2 (0.8-1.4); PROTHROMBIN TIME PATIENT 15.4 SEC (12.2-14.7)
[2022-10-13 11:56] LABS: BACTERIA,URINE NEGATIVE /HPF; BILIRUBIN,URINE NEGATIVE (NEGATIVE); SQUAMOUS EPITHELIAL CELL,UR 0-2 /HPF; WBC,URINE 0-2 /HPF
[2022-10-13 11:57] LABS: AMORPHOUS SEDIMENT,UR RARE AMOR URATES /LPF
[2022-10-13] MEDS ORDERED: FUROSEMIDE 40 MG/4 ML INJ (LASIX) IVP ONE ×2 (12:45→13:30)
[2022-10-13] MEDS ORDERED: KCL 10 MEQ TAB (MICRO K) PO ONE ×2 (13:30→15:45)
--- NOTE | 2022-10-13 15:19 | Consultation-Cardiology ---
HPI-Cardiology Cardiology Consultation: Date of Consultation 10/13/22 Time Seen by a Provider: 15:00 Date of Admission Attending Physician Sue Glover DO Admitting Physician Admitting Physician: Attending Physician: Consulting Physician RHYS HINKLE MD, MA, FACP, FACC, FSCAI, CCDS Physician requesting consult: Dr Glover HPI: Chief Complaint: Weakness 72 yo man with multiple CV and other comorbidities presents with profound, progressive weakness and malaise. Has had poor appetite, low oral intake, and i ncreasing wgt loss over last several weeks to months. A slowly healing wound of toe amputation on the R is currently healing well, he says. No swelling. No cp or palp or syncope. Does report intermittent nausea. No vomiting or diarrhea. States has been compliant with home regimen Review of Systems-Cardiology Review of Systems Constitutional: malaise, tiredness, weight loss Eyes: No vision change Ears/Nose/Throat: No ear discharge, No nasal drainage, No recent hearing loss Respiratory: As described under HPI Cardiovascular: As described under HPI Genitourinary: No dysuria, No hematuria Musculoskeletal: No back pain, No joint pain Skin: No rash Psychiatric/Neurological: No seizure, No focal weakness, No syncope Hematologic: No bleeding abnormalities [id number] Hx Patient Social History 2nd Hand Smoke Exposure: No Have you traveled recently?: No Alcohol Use?: No Pt feels they are or have been: No Past Medical History PMH As described under Assessment. Family Medical History Family Medical History: No fam history of early CAD or SCD Allergies and Home Medications Allergies Coded Allergies: No Known Drug Allergies (Unverified , 01/25/17) Patient Home Medication List Home Medication List Reviewed: Yes Acetaminophen (Tylenol Extra Strength) 500 Mg Tablet, 1,000 MG PO Q8H PRN for PAIN-MILD (1-4), (Reported) Entered as Reported by: MARIA DE JESUS PIEDRA on 07/21/22 1115 Allopurinol (Allopurinol) 100 Mg Tablet, 100 MG PO BID, (Reported) Entered as Reported by: MARIA DE JESUS PIEDRA on 12/06/20 0857 Bethanechol Chloride (Bethanechol Chloride) 50 Mg Tablet, 50 MG PO HS, (Reported) Entered as Reported by: MARIA DE JESUS PIEDRA on 12/06/20 0857 Clopidogrel Bisulfate (Clopidogrel) 75 Mg Tablet, 75 MG PO DAILY, (Reported) Entered as Reported by: MARIA DE JESUS PIEDRA on 12/06/20 08 Dapagliflozin Propanediol (Farxiga) 10 Mg Tablet, 10 MG PO HS, (Reported) Entered as Reported by: GABRIEL MEIDNA on 07/20/221814 Daptomycin (Daptomycin) 500 Mg Vial, 500 MG IV DAILY Prescribed by: SUE GLOVER on 07/27/22 1030 Ferrous Sulfate (Feosol) 325 Mg (65 Mg Iron) Tablet, 325 MG PO HS, (Reported) Entered as Reported by: GABRIEL MEDINA on 07/20/22 182 Furosemide (Furosemide) 40 Mg Tablet, 40 MG PO Q48H, (Reported) Entered as Reported by: MARIA DE JESUS PIEDRA on 12/06/20 09 Metoprolol Succinate (Metoprolol Succinate) 50 Mg Tab.er.24h, 50 MG PO HS, (Reported) Entered as Reported by: GABRIEL MEDINA on 07/20/221809 Oxycodone HCl/Acetaminophen (Oxycodone-Acetaminophen 5-325) 5 Mg-325 Mg Tablet, 1 EA PO TID PRN for PAIN-MODERATE (5-7) Prescribed by: SUE GLOVER on 07/29/22 0535 Pantoprazole Sodium (Pantoprazole Sodium) 40 Mg Tablet.dr, 40 MG PO DAILY, (Reported) Entered as Reported by: MARIA DE JESUS PIEDRA on 07/21/22 111 Sacubitril/Valsartan (Entresto 49 mg-51 mg Tablet) 49 Mg-51 Mg Tablet, 1 EA PO BID, (Reported) Entered as Reported by: MARIA DE JESUS PIEDRA on 07/21/22 111 Spironolactone (Spironolactone) 25 Mg Tablet, 25 MG PO DAILY, (Reported) Entered as Reported by: GABRIEL MEDINA on 07/20/221809 Tamsulosin HCl (Flomax) 0.4 Mg Cap, 0.4 MG PO HS, (Reported) Entered as Reported by: MARIA DE JESUS PIEDRA on 12/06/20856 Zolpidem Tartrate (Ambien) 10 Mg Tablet, 10 MG PO HS, (Reported) Entered as Reported by: MARIA DE JESUS PIEDRA on 12/06/20856 Physical Exam-Cardiology Physical Exam Vital Signs/I&O 10/13/22 09:55 Temp 36.6 Pulse 92 Resp 16 B/P (MAP) 144/96 (112) Pulse Ox 94 O2 Delivery Room Air Capillary Refill : Less Than 3 Seconds Constitutional: AAO x 3, well-developed, well-nourished HEENT: PERRL, EOMI, hearing is well preserved Neck: non-tender, carotid pulses are 2 + bilaterally, with good upstrokes Respiratory: No accessory muscle use; other (Diminished air enty at bases; basal crackles) Cardiovascular: irregularly irregular, S1 and S2, systolic murmur (soft AMAURI at card base) Gastrointestinal: No tender; soft; No guarding, No rebound; audible bowel sounds Extremities: other (R forefoot under dressing ); No clubbing, No cyanosis, No significant edema Neurologic/Psychiatric: oriented x 3, other (moves all limbs equally) Skin: No rash on exposed areas, No ulcerations on exposed areas Data Review Labs Laboratory Tests 10/13/22 10:00: Influenza Type A (RT-PCR) Not Detected, Influenza Type B (RT-PCR) Not Detected, SARS-CoV-2 RNA (RT-PCR) Not Detected 10/13/22 10:10: White Blood Count 8.3, Red Blood Count 4.07L, Hemoglobin 11.7L, Hematocrit 38L, Mean Corpuscular Volume 93, Mean Corpuscular Hemoglobin 29, Mean Corpuscular Hemoglobin Concent 31L, Red Cell Distribution Width 18.2H, Platelet Count 462H, Mean Platelet Volume 11.0, Immature Granulocyte % (Auto) 0, Neutrophils (%) (Auto) 67, Lymphocytes (%) (Auto) 16, Monocytes (%) (Auto) 14H, Eosinophils (%) (Auto) 2, Basophils (%) (Auto) 1, Neutrophils # (Auto) 5.6, Lymphocytes # (Auto) 1.3, Monocytes # (Auto) 1.1H, Eosinophils # (Auto) 0.2, Basophils # (Auto) 0.1, Immature Granulocyte # (Auto) 0.0, Erythrocyte Sedimentation Rate 19, Prothrombin Time 15.4H, INR Comment 1.2, Activated Partial Thromboplast Time 40H , Sodium Level 143, Potassium Level 3.1L, Chloride Level 108H, Carbon Dioxide Level 23, Anion Gap 12, Blood Urea Nitrogen 17, Creatinine 1.43H, Estimat Glomerular Filtration Rate 52, BUN/Creatinine Ratio 12, Glucose Level 169H, Calcium Level 9.2, Corrected Calcium 9.5, Magnesium Level 2.0, Total Bilirubin 1.3H, Aspartate Amino Transf (AST/SGOT) 66H, Alanine Aminotransferase (ALT/SGPT) 93H, Alkaline Phosphatase 112, Troponin I 0.074H, C-Reactive Protein High Sensitivity 4.46H, B-Type Natriuretic Peptide 7224.9H, Total Protein 6.5, Albumin 3.6, Amylase Level 31, TSH [place] Testing 1.53 10/13/22 11:31: Urine Color YELLOW, Urine Clarity CLEAR, Urine pH 5.5, Urine Specific [place] 1.025H, Urine Protein TRACEH, Urine Glucose (UA) 3+H, Urine Ketones TRACEH, Urine Nitrite NEGATIVE, Urine Bilirubin NEGATIVE, Urine Urobilinogen 1.0, Urine Leukocyte Esterase NEGATIVE, Urine RBC (Auto) NEGATIVE, Urine RBC NONE, Urine WBC 0-2, Urine Squamous Epithelial Cells 0-2, Urine Crystals PRESENTH, Urine Amorphous Sediment RARE OLGA URATESH, Urine Bacteria NEGATIVE, Urine Casts NONE, Urine Mucus NEGATIVE, Urine Culture Indicated NO 10/13/22 12:10: Troponin I 0.067H Laboratory Tests 10/13/22 10:10 A/P-Cardiology Assessment/Admission Diagnosis Failure to thrive / wgt loss of undetermined etiology [id number]-qtjsoit, decompensated CHF (HFrEF) - mild troponin elevation on 10/13/22: type II AK due to CHF 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 Walsh after wound dehiscence after surgery - poor healing suspected to be due to significant PAD; this has recently (Sep 2022) been healing well CAD and ischemic cardiomyopathy: - Card cath of 02/09/17: near-total occlusion of LAD treated with overlapping Resolute 2.25x30 and 2.5x14 stents and both postdilated with a 2.75 mm balloon to 2.9 mm diameter; LCX and RCA had relatively mod disease; elevated LVEDP - MPI of April 16, 2020 showed inferoapical myocardial infarction with a small amt of tosin-infarct ischemia. Anteroapical akinesis. LVEF 30%. Chronic systolic and diastolic CHF: - due to ischemic cardiomyopathy and severe mitral regurg - Echo 02/17/21: LVEF 30-35%, mod cardiomegaly (LV, RA, LA), mod to sev MR, AoV sclerosis w/o stenosis, mild MR, PASP 45-50 mmHg - Echocardiogram of 12-25-21 showed mod concentric hypertrophy. LVEF 25-30%. Akinesis of the anterior myocardium. LA is mod dilated. RA is mildly dilated. Mod MR, directed eccentrically. AoV thickening, consistent with sclerosis with mild AoR. A trivial free flowing pericardial effusion is identified. - Echo for 02/25/22 (as part of participation in MitraClip trial at [facility]): LVEF 37%, [place] device with mild residual MR, severe LV dilatation, global hypo, apical akinesis - Echocardiogram of 03-19-22 showed LVEF 30-35%. Akinesis of the apical myocardium. Grade 1 diastolic dysfunction. Mild to mod MR. AoV thickening, consistent with sclerosis. Trivial regurg. PASP 20 mmHg - MUGA 05-21-22 showed: Ischemic cardiomyopathy with anteroapical akinesis and with left ventricular ejection fraction of 43%. Severe MR: - Echocardiogram from 02-17-21 showed mod to severe MR - Referred to Dr. Rodriguez per pt request - advised he keep referral to [facility] - Referred to [facility]: Dr. Garg at [facility] has offered a minimally invasive mitral valve replacement, but the pt request an even less invasive approach and desires a mitraclip - S/P successful mitraclip placement by Dr. Vazquez at [facility] on 08-26-21 - Echo at [facility] on 08/25/22: LVER 42%, mitral transcathether [id number] repair devicee with mean grad 4 mmHg and mild residual regrug Hypertension H/o GI bleed : - May 2018 hosp with GI bleed requiring multiple transfusions. - Endoscopy by Dr Maharaj in early May 2018: reflux esophagitis (grade 2), no HH, moderate gastritis with small antral erosion.mild chronic stage 1 ext and int hemorrhoids. - Long hosp (April and May 2018) with diffuse myopathy and weakness following GI bleed and blood transfusions. Thrombocytosis during hosp of May 2018, most likely reactive, followed and treated by Dr Maher Chronic joint pains of unclear etiology: - gout vs RMSF vs statins. DM II: - followed by PCP H/o tobaccoism: - Quit tobacco use in or around 1999 CKD IV PFT of March 31, 2017: spirometry is WNL Carotid dz: - Mild carotid arterial disease on carotid u/s of 11/17/18 No AAA on AAA screening scan of 11/17/18 PAD and renal artery stenosis - CTA images of 12-16-2021 (following abnormal segmentals) demonstrate diffuse atherosclerotic plaquing of the aorta without evidence of aneurysm. There is a significant left renal artery stenosis. There are stenoses of the origins of the profunda femoris arteries on the right side. There is moderate stenosis in the distal SFA on the right side and high-grade stenosis of the junction of the right SFA and popliteal artery. There is two vessel runoff on the right side. On the left side, there is high-grade stenosis of the lower SFA with two vessel runoff distally. - U/s of R leg arterial system in Jul 2022: Monophasic waveforms in the right superficial femoral, popliteal, and anterior and posterior tibial arteries. Elevated flow velocities are seen in the distal right superficial femoral artery, suggestive of focal stenosis. H/o gout Discussion and Recomendations * iv diuretics, replenish K * Monitor labs * Please continue previous cardiac regimen * Dr Glover managing patient's wgt loss, poor appetite, failure to thrive, and medical regimen RHYS HIKNLE MD FACP FAC CCDS Oct 13, 2022 15:19
--- NOTE | 2022-10-13 16:50 | History & Physical ---
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 This generalized weakness started 2 weeks ago, which prompted an outpatient visit to Dr. Glover last week after which he felt some improvement. However, the weakness returned a few days following that appointment and has not relented. During this time he also has expereienced loss of appetite and denies eating salty foods. His weakness is not associated with fever, shortness of breath, or skin rashes. He has had difficulty sleeping despite taking medication. He has not found anything to alleviate the weakness and was brought to the hospital by his daughter. Date of Admission 10/13/2022 Date Seen by a Provider: Oct 13, 2022 Time Seen by a Provider: 13:00 I consulted on this patient on 10/13/22 16:45 Attending Physician Sue Glover DO Admitting Physician Admitting Physician: Attending Physician: Consult Cardiology Allergies and Home Medications Allergies Coded Allergies: No Known Drug Allergies (Unverified , 01/25/17) Patient Home Medication List Acetaminophen (Tylenol Extra Strength) 500 Mg Tablet, 1,000 MG PO Q8H PRN for PAIN-MILD (1-4), (Reported) Entered as Reported by: MARIA DE JESUS PIEDRA on 07/21/22 1115 Allopurinol (Allopurinol) 100 Mg Tablet, 100 MG PO BID, (Reported) Entered as Reported by: MARIA DE JESUS PIEDRA on 12/06/20 0857 Bethanechol Chloride (Bethanechol Chloride) 50 Mg Tablet, 50 MG PO HS, (Reported) Entered as Reported by: MARIA DE JESUS PIEDRA on 12/06/20 0857 Clopidogrel Bisulfate (Clopidogrel) 75 Mg Tablet, 75 MG PO DAILY, (Reported) Entered as Reported by: MARIA DE JESUS PIEDRA on 12/06/20 0857 Dapagliflozin Propanediol (Farxiga) 10 Mg Tablet, 10 MG PO HS, (Reported) Entered as Reported by: GABRIEL MEDINA on 07/20/22 1135 Daptomycin (Daptomycin) 500 Mg Vial, 500 MG IV DAILY Prescribed by: SUE GLOVER on 07/27/22 1030 Ferrous Sulfate (Feosol) 325 Mg (65 Mg Iron) Tablet, 325 MG PO HS, (Reported) Entered as Reported by: GABRIEL MEDINA on 07/20/22 182 Furosemide (Furosemide) 40 Mg Tablet, 40 MG PO Q48H, (Reported) Entered as Reported by: MARIA DE JESUS PIEDRA on 12/06/20 0901 Metoprolol Succinate (Metoprolol Succinate) 50 Mg Tab.er.24h, 50 MG PO HS, (Reported) Entered as Reported by: GABRIEL MEDINA on 07/20/22 1810 Oxycodone HCl/Acetaminophen (Oxycodone-Acetaminophen 5-325) 5 Mg-325 Mg Tablet, 1 EA PO TID PRN for PAIN-MODERATE (5-7) Prescribed by: SUE GLOVER on 07/29/22 0535 Pantoprazole Sodium (Pantoprazole Sodium) 40 Mg Tablet.dr, 40 MG PO DAILY, (Reported) Entered as Reported by: MARIA DE JESUS PIEDRA on 07/21/22 1115 Sacubitril/Valsartan (Entresto 49 mg-51 mg Tablet) 49 Mg-51 Mg Tablet, 1 EA PO BID, (Reported) Entered as Reported by: MARIA DE JESUS PIEDRA on 07/21/22 1115 Spironolactone (Spironolactone) 25 Mg Tablet, 25 MG PO DAILY, (Reported) Entered as Reported by: GABRIEL MEDINA on 07/20/22 181 Tamsulosin HCl (Flomax) 0.4 Mg Cap, 0.4 MG PO HS, (Reported) Entered as Reported by: MARI ADE JESUS PIEDRA on 12/06/20 0857 Zolpidem Tartrate (Ambien) 10 Mg Tablet, 10 MG PO HS, (Reported) Entered as Reported by: MARIA DE JESUS PIEDRA on 12/06/20 0857 Past Ouzvfsg-Ufkdgs-Ltojpj Hx Patient Social History Tobacco Use?: No Use of E-Cig and/or Vaping dev: No Substance use?: No Alcohol Use?: No Pt feels they are or have been: No Immunizations Up To Date First/Initial COVID19 Vaccinat: 2020 Second COVID19 Vaccination Gino: 2020 Tetanus Booster (TDap): Unknown Hepatitis A: No Hepatitis B: No PED Vaccines UTD: No Seasonal Allergies Seasonal Allergies: No Current Status Advance Directives: Yes Advance Directive Location: VERBALIZES "YES" WHEN ASKED IF HE IS A FULL CODE Communicates: Verbally Primary Language: Macedonian Preferred Spoken Language: Macedonian Past Medical History Surgeries: Pacemaker Pneumonia, COPD Currently Using CPAP: No Currently Using BIPAP: No Coronary Artery Disease, High Cholesterol, Hypertension, Valvular Heart Disease Neuropathy Benign Prostatic Hyperpl, Renal Failure Gastroesophageal Reflux Arthritis, Chronic Back Pain, Gout Diabetes, Non-Insulin dep Cataract Loss of Vision: Denies Hearing Impairment: Denies Blood Disorders: No Family Medical History No Pertinent Family Hx Review of Systems Constitutional: weakness EENTM: see HPI Respiratory: cough, dyspnea on exertion, short of breath Cardiovascular: no symptoms reported Gastrointestinal: no symptoms reported Genitourinary: no symptoms reported Musculoskeletal: no symptoms reported Skin: no symptoms reported All Other Systems Reviewed Negative Unless Noted: Yes Physical Exam Vital Signs Vital Signs - First Documented 10/13/22 09:55 Temp 36.6 Pulse 92 Resp 16 B/P (MAP) 144/96 (112) Pulse Ox 94 O2 Delivery Room Air Capillary Refill : Less Than 3 Seconds Height, Weight, BMI Height: 5'11.00" Weight: 195lbs. 11.2oz. 88.281485hm; 24.00 BMI Method:Stated General Appearance: Chronically ill, Mild Distress Eyes: Bilateral Eye Normal Inspection, Bilateral Eye PERRL, Bilateral Eye EOMI HEENT: PERRL/EOMI, TMs Normal, Normal ENT Inspection, Pharynx Normal Neck: Full Range of Motion, Normal Inspection, Non Tender, Supple Respiratory: Chest Non Tender, Lungs Clear, No Respiratory Distress; No Crackles, No Expiration, No Inspiration Cardiovascular: Irregularly Irregular Gastrointestinal: Normal Bowel Sounds, Non Tender, Soft Rectal: Deferred Back: Normal Inspection Neurologic/Psychiatric: Alert, Oriented x3, No Motor/Sensory Deficits, Normal Mood/Affect Assessment/Plan Assessment and Plan Hernan Henning 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 Weakness anemia vs electrolyte abnormality vs CHF exacerbation - CXR showing mild mediastinal congestion. SLightly enlarged cardiac silhouette - CBC: Hgb 11.7 (high RDW) monocytes high - indicating possible viral illness - Check iron level - CMP: K low bili elevated. - UA: neg LE, nitrites - Head CT: Negative for acute hemorrhagic pathology - FluA/B COVID negative CHF (HFrEF) - 30% - BNP >7000 - Last echo done - Venous congestion on CXR - Lasix for diuresis - Monitor K, Mg, Ca, replace as needed Recent weightloss - Low oral intake Elevated troponin - likely due to demand ischemia - 0.074 -> 0.067 - No chest pain, trending down - Cardiology following CAD - previous stenting - cardiology following hypokalemia - 3.1 - Oral tablets, 40 mEq then recheck - Goal of 4 Anemia - history of GI bleed - 11.7 - Iron infusion - B12 injection - monitor and transfuse if below 7 CKD stage 3a - GFR 52 - robbin diuresis - Monitor blood pressure PAD and renal stenosis Elevated transaminases - AST 66, ALT 93 - Will monitor - awaiting alk phos and ggt Insomnia - encourage good sleep hygene Amputation of right third toe, recovering - labs from 10/01 show no organisms grown - slowly healing likely due to PAD - monitor for signs of infection - continued daily dressing changes history of mitral valve surgery - continue to monitor SUE GLOVER DO 10/14/22 0531: Allergies and Home Medications Allergies Coded Allergies: No Known Drug Allergies (Unverified , 01/25/17) Patient Home Medication List Home Medication List Reviewed: Yes Acetaminophen (Tylenol Extra Strength) 500 Mg Tablet, 1,000 MG PO Q8H PRN for PAIN-MILD (1-4), (Reported) Entered as Reported by: MARIA DE JESUS PIEDRA on 07/21/22 1115 Allopurinol (Allopurinol) 100 Mg Tablet, 100 MG PO BID, (Reported) Entered as Reported by: MARIA DE JESUS PIEDRA on 12/06/20 0857 Bethanechol Chloride (Bethanechol Chloride) 50 Mg Tablet, 50 MG PO HS, (Reported) Entered as Reported by: MARIA DE JESUS PIEDRA on 12/06/20 0857 Clopidogrel Bisulfate (Clopidogrel) 75 Mg Tablet, 75 MG PO DAILY, (Reported) Entered as Reported by: MARIA DE JESUS PIEDRA on 12/06/20 0857 Dapagliflozin Propanediol (Farxiga) 10 Mg Tablet, 10 MG PO HS, (Reported) Entered as Reported by: GABRIEL MEDINA on 07/20/221814 Daptomycin (Daptomycin) 500 Mg Vial, 500 MG IV DAILY Prescribed by: SUE GLOVER on 07/27/22 1030 Ferrous Sulfate (Feosol) 325 Mg (65 Mg Iron) Tablet, 325 MG PO HS, (Reported) Entered as Reported by: GABRIEL MEDINA on 07/20/22 182 Furosemide (Furosemide) 40 Mg Tablet, 40 MG PO Q48H, (Reported) Entered as Reported by: MARIA DE JESUS PIEDRA on 12/06/20 0901 Metoprolol Succinate (Metoprolol Succinate) 50 Mg Tab.er.24h, 50 MG PO HS, (Reported) Entered as Reported by: GABRIEL MEDINA on 07/20/221809 Oxycodone HCl/Acetaminophen (Oxycodone-Acetaminophen 5-325) 5 Mg-325 Mg Tablet, 1 EA PO TID PRN for PAIN-MODERATE (5-7) Prescribed by: SUE GLOVER on 07/29/22 0535 Pantoprazole Sodium (Pantoprazole Sodium) 40 Mg Tablet.dr, 40 MG PO DAILY, (Reported) Entered as Reported by: MARIA DE JESUS PIEDRA on 07/21/22 111 Sacubitril/Valsartan (Entresto 49 mg-51 mg Tablet) 49 Mg-51 Mg Tablet, 1 EA PO BID, (Reported) Entered as Reported by: MARIA DE JESUS PIEDRA on 07/21/22 111 Spironolactone (Spironolactone) 25 Mg Tablet, 25 MG PO DAILY, (Reported) Entered as Reported by: GABRIEL MEDINA on 07/20/221809 Tamsulosin HCl (Flomax) 0.4 Mg Cap, 0.4 MG PO HS, (Reported) Entered as Reported by: MARIA DE JESUS PIEDRA on 12/06/20 0857 Zolpidem Tartrate (Ambien) 10 Mg Tablet, 10 MG PO HS, (Reported) Entered as Reported by: MARIA DE JESUS PIEDRA on 12/06/20 0857 Past Okmddzv-Ygyyrv-Wnbnln Hx Patient Social History Marrital Status: cohabiting Employed/Student: unemployed Past Medical History COPD Coronary Artery Disease, High Cholesterol, Hypertension, Valvular Heart Disease Diabetes, Non-Insulin dep Review of Systems Constitutional: see HPI, weakness Physical Exam General Appearance: Anxious, Chronically ill Respiratory: Lungs Clear, Normal Breath Sounds Assessment/Plan Assessment and Plan Problems: (1) NSTEMI (non-ST elevated myocardial infarction) Status: Acute Admission Diagnosis Admission Status: Inpatient Order (span 2 midnights) Reason for Inpatient Admission: nstemi Supervisory-Addendum Brief Verification & Attestation Participated in pt care: history, MDM, physical Personally performed: exam, history, MDM, supervision of care Care discussed with: Medical Student Procedures: n/a Results interpretation: Verified all documentation Verification and Attestation of Medical Student E/M Service A medical student performed and documented this service in my presence. I reviewed and verified all information documented by the medical student and made modifications to such information, when appropriate. I personally performed the physical exam and medical decision making. Sue Glover, Oct 14, 2022,05:31 SHASTA CUADRA I Oct 13, 2022 16:50 SUE GLOVER DO Oct 14, 2022 05:31
--- NOTE | 2022-10-13 18:31 | Discharge Summary ---
Diagnosis/Chief Complaint Date of Admission Oct 13, 2022 at 11:48 Date of Discharge Discharge Diagnosis LEFT AMA Discharge Summary Discharge Physical Examination Allergies: Coded Allergies: No Known Drug Allergies (Unverified , 01/25/17) Vitals & I&Os Vital Signs Date Time Temp Pulse Resp B/P (MAP) Pulse Ox O2 Delivery O2 Flow Rate FiO2 10/13/22 18:35 99 16 134/104 91 10/13/22 09:55 36.6 Room Air Hospital Course Was the Problem List Reviewed?: Yes see hpi Labs (last 24 hrs) Laboratory Tests 10/13/22 10:00: Influenza Type A (RT-PCR) Not Detected, Influenza Type B (RT-PCR) Not Detected, SARS-CoV-2 RNA (RT-PCR) Not Detected 10/13/22 10:10: White Blood Count 8.3, Red Blood Count 4.07L, Hemoglobin 11.7L, Hematocrit 38L, Mean Corpuscular Volume 93, Mean Corpuscular Hemoglobin 29, Mean Corpuscular Hemoglobin Concent 31L, Red Cell Distribution Width 18.2H, Platelet Count 462H, Mean Platelet Volume 11.0, Immature Granulocyte % (Auto) 0, Neutrophils (%) (Auto) 67, Lymphocytes (%) (Auto) 16, Monocytes (%) (Auto) 14H, Eosinophils (%) (Auto) 2, Basophils (%) (Auto) 1, Neutrophils # (Auto) 5.6, Lymphocytes # (Auto) 1.3, Monocytes # (Auto) 1.1H, Eosinophils # (Auto) 0.2, Basophils # (Auto) 0.1, Immature Granulocyte # (Auto) 0.0, Erythrocyte Sedimentation Rate 19, Prothrombin Time 15.4H, INR Comment 1.2, Activated Partial Thromboplast Time 40H , Sodium Level 143, Potassium Level 3.1L, Chloride Level 108H, Carbon Dioxide Level 23, Anion Gap 12, Blood Urea Nitrogen 17, Creatinine 1.43H, Estimat Glomerular Filtration Rate 52, BUN/Creatinine Ratio 12, Glucose Level 169H, Calcium Level 9.2, Corrected Calcium 9.5, Magnesium Level 2.0, Total Bilirubin 1.3H, Aspartate Amino Transf (AST/SGOT) 66H, Alanine Aminotransferase (ALT/SGPT) 93H, Alkaline Phosphatase 112, Troponin I 0.074H, C-Reactive Protein High Sensitivity 4.46H, B-Type Natriuretic Peptide 7224.9H, Total Protein 6.5, Albumin 3.6, Amylase Level 31, TSH [place] Testing 1.53 10/13/22 11:31: Urine Color YELLOW, Urine Clarity CLEAR, Urine pH 5.5, Urine Specific [place] 1.025H, Urine Protein TRACEH, Urine Glucose (UA) 3+H, Urine Ketones TRACEH, Urine Nitrite NEGATIVE, Urine Bilirubin NEGATIVE, Urine Urobilinogen 1.0, Urine Leukocyte Esterase NEGATIVE, Urine RBC (Auto) NEGATIVE, Urine RBC NONE, Urine WBC 0-2, Urine Squamous Epithelial Cells 0-2, Urine Crystals PRESENTH, Urine Amorphous Sediment RARE OLGA URATESH, Urine Bacteria NEGATIVE, Urine Casts NONE, Urine Mucus NEGATIVE, Urine Culture Indicated NO 10/13/22 12:10: Troponin I 0.067H Pending Labs Laboratory Tests 10/13/22 10:00: Influenza Type A (RT-PCR) Not Detected, Influenza Type B (RT-PCR) Not Detected, SARS-CoV-2 RNA (RT-PCR) Not Detected 10/13/22 10:10: White Blood Count 8.3, Red Blood Count 4.07, Hemoglobin 11.7, Hematocrit 38, Mean Corpuscular Volume 93, Mean Corpuscular Hemoglobin 29, Mean Corpuscular Hemoglobin Concent 31, Red Cell Distribution Width 18.2, Platelet Count 462, Mean Platelet Volume 11.0, Immature Granulocyte % (Auto) 0, Neutrophils (%) (Auto) 67, Lymphocytes (%) (Auto) 16, Monocytes (%) (Auto) 14, Eosinophils (%) (Auto) 2, Basophils (%) (Auto) 1, Neutrophils # (Auto) 5.6, Lymphocytes # (Auto) 1.3, Monocytes # (Auto) 1.1, Eosinophils # (Auto) 0.2, Basophils # (Auto) 0.1, Immature Granulocyte # (Auto) 0.0, Erythrocyte Sedimentation Rate 19, Prothrombin Time 15.4, INR Comment 1.2, Activated Partial Thromboplast Time 40, Sodium Level 143, Potassium Level 3.1, Chloride Level 108, Carbon Dioxide Level 23, Anion Gap 12, Blood Urea Nitrogen 17, Creatinine 1.43, Estimat Glomerular Filtration Rate 52, BUN/Creatinine Ratio 12, Glucose Level 169, Calcium Level 9.2, Corrected Calcium 9.5, Magnesium Level 2.0, Total Bilirubin 1.3, Aspartate Amino Transf (AST/SGOT) 66, Alanine Aminotransferase (ALT/SGPT) 93, Alkaline Phosphatase 112, Troponin I 0.074, C-Reactive Protein High Sensitivity 4.46, B- Type Natriuretic Peptide 7224.9, Total Protein 6.5, Albumin 3.6, Amylase Level 31, TSH [place] Testing 1.53 10/13/22 11:31: Urine Color YELLOW, Urine Clarity CLEAR, Urine pH 5.5, Urine Specific [place] 1.025, Urine Protein TRACE, Urine Glucose (UA) 3+, Urine Ketones TRACE, Urine Nitrite NEGATIVE, Urine Bilirubin NEGATIVE, Urine Urobilinogen 1.0, Urine Leukocyte Esterase NEGATIVE, Urine RBC (Auto) NEGATIVE, Urine RBC NONE, Urine WBC 0-2, Urine Squamous Epithelial Cells 0-2, Urine Crystals PRESENT, Urine Amorphous Sediment RARE OLGA URATES, Urine Bacteria NEGATIVE, Urine Casts NONE, Urine Mucus NEGATIVE, Urine Culture Indicated NO 10/13/22 12:10: Troponin I 0.067 Discharge Home Medications: Active Scripts Active Oxycodone-Acetaminophen 5-325 (Oxycodone HCl/Acetaminophen) 5 Mg-325 Mg Tablet 1 Ea PO TID PRN Daptomycin 500 Mg Vial 500 Mg IV DAILY 7 Days Reported Tylenol Extra Strength (Acetaminophen) 500 Mg Tablet 1,000 Mg PO Q8H PRN Entresto 49 mg-51 mg Tablet (Sacubitril/Valsartan) 49 Mg-51 Mg Tablet 1 Ea PO BID Pantoprazole Sodium 40 Mg Tablet.dr 40 Mg PO DAILY Feosol (Ferrous Sulfate) 325 Mg (65 Mg Iron) Tablet 325 Mg PO HS Farxiga (Dapagliflozin Propanediol) 10 Mg Tablet 10 Mg PO HS Spironolactone 25 Mg Tablet 25 Mg PO DAILY Metoprolol Succinate 50 Mg Tab.er.24h 50 Mg PO HS Furosemide 40 Mg Tablet 40 Mg PO Q48H Allopurinol 100 Mg Tablet 100 Mg PO BID Clopidogrel (Clopidogrel Bisulfate) 75 Mg Tablet 75 Mg PO DAILY Flomax (Tamsulosin HCl) 0.4 Mg Cap 0.4 Mg PO HS Ambien (Zolpidem Tartrate) 10 Mg Tablet 10 Mg PO HS Bethanechol Chloride 50 Mg Tablet 50 Mg PO HS Instructions to patient/family Please see electronic discharge instructions given to patient. NICHOLAS GLOVER DO Oct 13, 2022 18:31
[2022-10-13 18:35] VITALS: BP 134/104
[2022-10-13] MEDS ORDERED: SACUBITRIL/VALSARTAN 24/26 MG (ENTRESTO) TABLET PO SCH (21:00)
[2022-10-14] MEDS ORDERED: meTOproloL SUCCINATE 50 MG (TOPROL XL) TAB PO SCH (09:00)
[2022-10-14] MEDS ORDERED: CLOPIDOGREL 75 MG (PLAVIX) TABLET PO SCH (09:00)
== END 2022-10-13 18:37 | disposition left against medical advice (07) ==
LOC: EDUNIT# 09:44 → ER 09:46 → UNDOADMIN 11:48 → CSD 11:48
DX: R53.1 Weakness (principal); I25.10 Atherosclerotic heart disease of native coronary artery without angina pectoris; I73.9 Peripheral vascular disease, unspecified; R77.8 Other specified abnormalities of plasma proteins; I13.0 Hypertensive heart and chronic kidney disease with heart failure and stage 1 through stage 4 chronic kidney disease, or unspecified chronic kidney disease; E11.22 Type 2 diabetes mellitus with diabetic chronic kidney disease; N18.9 Chronic kidney disease, unspecified; I50.9 Heart failure, unspecified; E11.40 Type 2 diabetes mellitus with diabetic neuropathy, unspecified; D64.9 Anemia, unspecified; E87.6 Hypokalemia; Z20.822 Contact with and (suspected) exposure to COVID-19
CPT/HCPCS: 36415; 70450; 71045; 80053; 81000; 82150; 83735; 83880; 84443; 84484; 85025; 85610; 85652; 85730; 86141; 87636; 93005; 93041

== ENCOUNTER → 2022-10-15 | Outpatient (CLI) | payer MEDICARE | LOC: WOUNDCARE 14:53 | PROVIDERS: ATTEND Family Medicine | DX: I70.235 Atherosclerosis of native arteries of right leg with ulceration of other part of foot (principal); T81.31XA Disruption of external operation (surgical) wound, not elsewhere classified, initial encounter; T87.89 Other complications of amputation stump; E11.621 Type 2 diabetes mellitus with foot ulcer; E44.0 Moderate protein-calorie malnutrition; E11.40 Type 2 diabetes mellitus with diabetic neuropathy, unspecified; E11.22 Type 2 diabetes mellitus with diabetic chronic kidney disease; N18.30 Chronic kidney disease, stage 3 unspecified; D63.1 Anemia in chronic kidney disease; E11.52 Type 2 diabetes mellitus with diabetic peripheral angiopathy with gangrene; I96 Gangrene, not elsewhere classified | CPT/HCPCS: 11042; G0463 ==

== ENCOUNTER → 2022-10-22 | Outpatient (CLI) | payer MEDICARE | LOC: WOUNDCARE 13:05 | PROVIDERS: ATTEND Family Medicine | DX: I96 Gangrene, not elsewhere classified (principal); T81.31XA Disruption of external operation (surgical) wound, not elsewhere classified, initial encounter; T87.89 Other complications of amputation stump; E11.621 Type 2 diabetes mellitus with foot ulcer; E11.40 Type 2 diabetes mellitus with diabetic neuropathy, unspecified; I70.235 Atherosclerosis of native arteries of right leg with ulceration of other part of foot; N18.30 Chronic kidney disease, stage 3 unspecified; D63.1 Anemia in chronic kidney disease; E44.0 Moderate protein-calorie malnutrition; Z68.22 Body mass index [BMI] 22.0-22.9, adult | CPT/HCPCS: 11042; G0463 ==

== ENCOUNTER → 2022-11-02 | Outpatient (CLI) | payer MEDICARE | LOC: WOUNDCARE 13:20 | PROVIDERS: ATTEND Family Medicine | DX: T87.89 Other complications of amputation stump (principal); T81.31XA Disruption of external operation (surgical) wound, not elsewhere classified, initial encounter; E11.621 Type 2 diabetes mellitus with foot ulcer; I70.235 Atherosclerosis of native arteries of right leg with ulceration of other part of foot; E44.0 Moderate protein-calorie malnutrition; E11.40 Type 2 diabetes mellitus with diabetic neuropathy, unspecified; E11.22 Type 2 diabetes mellitus with diabetic chronic kidney disease; N18.30 Chronic kidney disease, stage 3 unspecified; D63.1 Anemia in chronic kidney disease; E11.52 Type 2 diabetes mellitus with diabetic peripheral angiopathy with gangrene; I96 Gangrene, not elsewhere classified | CPT/HCPCS: 97597; G0463 ==

== ENCOUNTER → 2022-11-12 | Outpatient (CLI) | payer MEDICARE | LOC: WOUNDCARE 14:31 | PROVIDERS: ATTEND Family Medicine | DX: T87.89 Other complications of amputation stump (principal); T81.31XA Disruption of external operation (surgical) wound, not elsewhere classified, initial encounter; E11.621 Type 2 diabetes mellitus with foot ulcer; I70.235 Atherosclerosis of native arteries of right leg with ulceration of other part of foot; E44.0 Moderate protein-calorie malnutrition; E11.40 Type 2 diabetes mellitus with diabetic neuropathy, unspecified; E11.22 Type 2 diabetes mellitus with diabetic chronic kidney disease; N18.30 Chronic kidney disease, stage 3 unspecified; D63.1 Anemia in chronic kidney disease; E11.52 Type 2 diabetes mellitus with diabetic peripheral angiopathy with gangrene | CPT/HCPCS: 11042; G0463 ==

== ENCOUNTER → 2022-11-13 | Outpatient (CLI) | payer MEDICARE ==
--- NOTE | 2022-11-13 09:41 | Diagnostic Imaging Report ---
PROCEDURE: US Gallbladder. TECHNIQUE: Multiple real-time grayscale images were obtained over the right upper quadrant in various projections. INDICATION: Right upper quadrant pain EXAMINATION: Ultrasound gallbladder 11/13/2022. FINDINGS: The liver is unremarkable with no intrahepatic biliary ductal dilatation. Common duct is normal in size. Gallbladder wall does not appear thickened. There is no pericholecystic fluid. Low-level echoes noted within the gallbladder possibly due to sludge. There is no ascites. Visualized aspects of the pancreas, aorta and IVC unremarkable. Right kidney unremarkable. IMPRESSION: 1. Possible sludge in the gallbladder. Remaining visualized right upper quadrant structures unremarkable. Dictated by: Dictated on workstation # [id number]
== END ==
LOC: RAD 08:29
PROVIDERS: ATTEND Surgery
DX: R10.11 Right upper quadrant pain (principal)
CPT/HCPCS: 76705

== ENCOUNTER 2022-11-25 05:36 | Outpatient (CLI) | payer MEDICARE ==
[~2022-11-25] VITALS: Ht 177.8 cm; Wt 59.4 kg
[2022-11-26] MEDS ORDERED: OXYC1TAB12 PO (13:12)
== END 2022-11-25 13:03 | disposition home or self-care (01) ==
LOC: PREOP 05:36
PROVIDERS: ATTEND Surgery
DX: Z01.818 Encounter for other preprocedural examination (principal)

== ENCOUNTER → 2022-11-26 | Day surgery (SDC) | payer MEDICARE ==
[~2022-11-26] MED LIST changes: +ACETAMINOPHEN 325 MG TABLET PO PRN; +LACTATED RINGERS 1,000 ML IV PRN; +ONDANSETRON 4 MG/2 ML (SDV) Z0FRAN IVP PRN; +OXYC1TAB12 PO; +ceFAZolin 1 GM/NS 50 ML (SDC/OR ONLY) IV ONE; +morphine INJ 10 MG/ML 1ML (SYR OR VIAL) IVP PRN; +oxyCODONE/APAP 5/325MG (PERCOCET 5) TABLET PO PRN
--- NOTE | 2022-11-26 13:10 | Progress Note-Pre Operative ---
Pre-Operative Progress Note Date of Available H&P: Nov 26, 2022 Date H&P Reviewed: Nov 26, 2022 Time H&P Reviewed: 13:00 History & Physical: No changes noted Pre-Operative Diagnosis: chronic calculous cholecystitis MARYLU DELGADO MD Nov 26, 2022 13:10
--- NOTE | 2022-11-26 13:12 | Discharge Inst-Surgical ---
D/C Lap Instructions-SANDY New, Converted, or Re-Newed RX: RX on Chart Follow Up Appt in 2 weeks Activity as tolerated No driving for 24 hours No driving while on pain medications Incentive Spirometry use every 2 hours while awake Regular Diet Symptoms to Report: Fever over 101 degree F, Nausea/Vomiting Infection Signs and Symptoms to report: Increased redness, Foul odor of wound, Increased drainage Bathing instructions: May shower Operative Area Clean/Dry; Keep incision clean/dry If any problems/questions: Contact your physician or go to Emergency Room MARYLU DELGADO MD Nov 26, 2022 13:12
== END | disposition home or self-care (01) ==
LOC: SDC 12:49
PROVIDERS: ATTEND Surgery
DX: K82.9 Disease of gallbladder, unspecified (principal); Z53.09 Procedure and treatment not carried out because of other contraindication

== ENCOUNTER → 2022-12-02 | Outpatient (CLI) | payer MEDICARE ==
[~2022-12-02] MED LIST changes: -ACETAMINOPHEN 325 MG TABLET PO PRN; -LACTATED RINGERS 1,000 ML IV PRN; -ONDANSETRON 4 MG/2 ML (SDV) Z0FRAN IVP PRN; -ceFAZolin 1 GM/NS 50 ML (SDC/OR ONLY) IV ONE; -morphine INJ 10 MG/ML 1ML (SYR OR VIAL) IVP PRN; -oxyCODONE/APAP 5/325MG (PERCOCET 5) TABLET PO PRN
== END ==
LOC: WOUNDCARE 09:31
PROVIDERS: ATTEND Family Medicine
DX: I96 Gangrene, not elsewhere classified (principal); T81.31XA Disruption of external operation (surgical) wound, not elsewhere classified, initial encounter; T87.89 Other complications of amputation stump; I70.235 Atherosclerosis of native arteries of right leg with ulceration of other part of foot; N18.30 Chronic kidney disease, stage 3 unspecified; E11.621 Type 2 diabetes mellitus with foot ulcer; E11.40 Type 2 diabetes mellitus with diabetic neuropathy, unspecified; D63.1 Anemia in chronic kidney disease; E44.0 Moderate protein-calorie malnutrition; Z68.22 Body mass index [BMI] 22.0-22.9, adult
CPT/HCPCS: 11042; G0463

== ENCOUNTER → 2022-12-02 | Outpatient (CLI) | payer MEDICARE | END | disposition home or self-care (01) | LOC: PREOP 06:11 | PROVIDERS: ATTEND Surgery | DX: Z01.818 Encounter for other preprocedural examination (principal) ==

== ENCOUNTER 2022-12-03 12:16 | Day surgery (SDC) | payer MEDICARE ==
[2022-12-03] VITALS (11 sets, daily range): BP systolic 114–132; BP diastolic 74–89
[2022-12-03] MEDS ORDERED: ceFAZolin INJECTION 1,000 MG in NS (IVPB) 50 ML IV ONE (12:30)
[2022-12-03] MEDS ORDERED: fentaNYL INJ 100 MCG/2 ML AMP ONE (12:59)
[2022-12-03] MEDS ORDERED: LIDOCAINE PF 2% 5 ML (XYLOCAINE) VIAL ONE (12:59)
[2022-12-03] MEDS ORDERED: ONDANSETRON 4 MG/2 ML (SDV) Z0FRAN ONE (12:59)
[2022-12-03] MEDS ORDERED: proPOfol 200 MG/20 ML (DIPRIVAN) VIAL IV ONE (12:59)
[2022-12-03] MEDS ORDERED: GLYCOPYRROLATE 0.2 MG/ML (ROBINUL) 2 ML VIAL ONE (12:59)
[2022-12-03] MEDS ORDERED: NEOSTIGMINE (BLOXIVERZ ) 1 MG/1ML 10 ML VIAL ONE (13:01)
--- NOTE | 2022-12-03 13:20 | Progress Note-Pre Operative ---
Pre-Operative Progress Note Date H&P Reviewed: Dec 03, 2022 Time H&P Reviewed: 13:20 History & Physical: H&P Reviewed, Patient Examed, No changes noted Pre-Operative Diagnosis: Biliary sludge BIRGIT ANDRES APRN Dec 03, 2022 13:20
[2022-12-03] MEDS ORDERED: HYDR-3817 PO (13:22)
--- NOTE | 2022-12-03 13:22 | Discharge Inst-Surgical ---
D/C Lap Instructions-KIDO Reconcile Patient Problems Problems Reviewed?: Yes New, Converted, or Re-Newed RX: RX on Chart Follow Up Appt in 2 weeks Activity as tolerated No driving for 24 hours No driving while on pain medications Incentive Spirometry use every 2 hours while awake Regular Diet Symptoms to Report: Fever over 101 degree F, Nausea/Vomiting Infection Signs and Symptoms to report: Increased redness, Foul odor of wound, Increased drainage Bathing instructions: May shower Operative Area Clean/Dry; Keep incision clean/dry If any problems/questions: Contact your physician or go to Emergency Room BIRGIT ANDRES APRN Dec 03, 2022 13:22
[2022-12-03] MEDS ORDERED: HYDROcodone/APAP 5 MG/325 MG (LORTAB) TAB PO ONE (13:30)
[2022-12-03] MEDS ORDERED: ACETAMINOPHEN 325 MG TABLET PO PRN (13:30)
[2022-12-03] MEDS ORDERED: morphine INJ 10 MG/ML 1ML (SYR OR VIAL) IVP PRN (13:30)
[2022-12-03] MEDS ORDERED: ONDANSETRON 4 MG/2 ML (SDV) Z0FRAN IVP PRN ×2 (13:30→15:00)
[2022-12-03] MEDS ORDERED: BUP/EPI 0.5% 1:200,000 (SENSORCAINE) 30 ML VIAL ONE (13:32)
[2022-12-03] MEDS: LACTATED RINGERS 1,000 ML IV PRN ×2 (13:40→13:59)
[2022-12-03] MEDS ORDERED: SEVOFLURANE (ULTANE) 15 ML INHAL SOLN ONE (14:31)
[2022-12-03] MEDS ORDERED: ROCURONIUM 50 MG/5 ML (ZEMURON) VIAL IV ONE (14:31)
[2022-12-03] MEDS ORDERED: PHENYLEPHRINE 100 MCG/ML 10 ML (ANESTHESIA) SYR ONE (14:31)
--- NOTE | 2022-12-03 14:51 | Progress Note-Post Operative ---
Post-Operative Progess Note Surgeon (s)/Manager Ship (s) Surgeon MARYLU DELGADO MD Manager Ship: kain dodson [employer] Pre-Operative Diagnosis Biliary sludge Post-Operative Diagnosis same Procedure & Operative Findings Date of Procedure 12/03/22 Procedure Performed/Findings laparoscopic cholecystectomy Anesthesia Type get Estimated Blood Loss Estimated blood loss (mL): minimal Specimens/Packing Specimens Removed gallbladder MARYLU DELGADO MD Dec 03, 2022 14:51
--- NOTE | 2022-12-03 14:56 | Anesthesia-General Post-Op ---
General Patient Condition Mental Status/LOC: Same as Preop Cardiovascular: Satisfactory Nausea/Vomiting: Absent Respiratory: Satisfactory Pain: Controlled Complications: Absent Post Op Complications Complications None Follow Up Care/Instructions Patient Instructions None needed. Anesthesia/Patient Condition Patient Condition Patient is doing well, no complaints, stable vital signs, no apparent adverse anesthesia problems. No complications reported per nursing. VERÓNICA HANNON CRNA Dec 03, 2022 14:56
[2022-12-03] MEDS ORDERED: HYDROcodone/APAP 5 MG/325 MG (LORTAB) TAB ONE (15:45)
--- NOTE | 2022-12-03 18:19 | OPERATIVE REPORT ---
DATE OF SERVICE: 12/03/2022 ATTENDING PRIMARY CARE PHYSICIAN: Sue Fam DO PREOPERATIVE DIAGNOSIS: Symptomatic chronic calculous cholecystitis. POSTOPERATIVE DIAGNOSIS: Symptomatic chronic calculous cholecystitis. PROCEDURE: Laparoscopic cholecystectomy. SURGEON: Marylu Delgado MD BIBLE READER: Grady Araujo APRN ANESTHESIA: General endotracheal. ESTIMATED BLOOD LOSS: Minimal. FINDINGS: Severely dilated gallbladder with omental adhesions towards the fundus of the gallbladder. Small gallstones and biliary sludge. DISPOSITION: The patient tolerated the procedure well. INDICATIONS: The patient is a 72-year-old male known to us. He has a history of multiple medical problems including COPD, congestive heart failure, coronary artery disease as well as chronic kidney disease. He has had this ongoing issue with diabetes as well as osteomyelitis requiring a toe amputation recently as well. He also reports in the past year he has steadily lost weight and has lost appetite for eating. He also reports that after taking a few bites of food, he would feel early satiety and bloating sensation. He also reports some pain in the right upper abdominal quadrant as well as intermittent nausea; however, no vomiting. An ultrasound was performed, which did show a dilated gallbladder as well as biliary sludge. DESCRIPTION OF PROCEDURE: The patient was brought to the operating room, laid supine on the table. After adequate IV pain and sedative medications and general endotracheal intubation, the abdomen was prepped and draped in standard surgical fashion. A 0.5% Marcaine with epinephrine was used to anesthetize the overlying skin in the left upper abdominal quadrant and a transverse skin incision made using a #15 blade. An 0 silk suture was applied to the medial aspect of the incision for retraction and a Veress needle inserted with low opening pressure of 0 mmHg and the abdomen was then insufflated to 15 mmHg pressure. The Veress needle removed and a 5 mm XL trocar placed followed by a 5 mm 45-degree angle laparoscope visualizing the peritoneal cavity. A 4-quadrant abdominal exploration was performed. There was a significantly distended gallbladder. There did not appear to be any gallbladder wall thickening; however, there were omental adhesions towards the fundus of the gallbladder. Under direct visualization, we then proceeded to place a supraumbilical 10 mm port after the skin and peritoneal lining were anesthetized using 0.5% Marcaine with epinephrine and a transverse skin incision made using a #15 blade. In a similar manner, a right upper abdominal quadrant 5 mm port was placed. The omental adhesions were then taken down using electrocautery on the hook instrument. The fundus of the gallbladder was then retracted anteriorly and superiorly. There were more omental adhesions, which were taken down bluntly as well as electrocautery on the hook instrument. The hepatoduodenal ligament was then dissected bluntly as well as using causing and using the hook instrument as well as the [place] dissector. The entire critical view of safety was identified including the triangle of Calot as well as the cystic duct and artery as the only 2 structures going into the gallbladder as well as the cystic plate behind the proximal gallbladder. A timeout was then taken and the cystic duct and artery were then clipped proximally and distally and cut with EndoShears. The gallbladder was then dissected off of the liver bed using cautery on the hook instrument with visualization of good hemostasis as well as no leaking ducts of Luschka. The gallbladder was removed through the 10 port site using an EndoCatch bag. The 10 mm port site fascia and peritoneum were then closed using a 0 Vicryl suture on a UR needle. The abdomen was desufflated and the remaining ports were removed. All skin incisions were closed using 4-0 Monocryl running subcuticular sutures. Wounds were then cleaned and covered with Dermabond. The patient tolerated the procedure well. PLAN: We will start IV and oral pain medications as well as a clear liquid diet. Once he is tolerating clears with good pain control with oral pain medications and is ambulating well, we will discharge him home where he will be instructed to do no heavy lifting or exertion for the next 2 weeks. Job ID: [id number] DocumentID: [id number] Dictated Date: 12/03/2022 15:07:59 Crochet Beader Date: 12/03/2022 18:16:00 Dictated By: MARYLU DELGADO MD
== END 2022-12-03 17:00 | disposition home or self-care (01) ==
LOC: SDC 12:16
PROVIDERS: ATTEND Surgery
DX: K81.1 Chronic cholecystitis (principal); K66.0 Peritoneal adhesions (postprocedural) (postinfection); K83.8 Other specified diseases of biliary tract; Z87.891 Personal history of nicotine dependence
CPT/HCPCS: 82947; 87081; 88304

== ENCOUNTER 2022-12-05 13:19 | Emergency (ER) | payer MEDICARE ==
[~2022-12-05] VITALS: Ht 177.8 cm; Wt 61.2 kg
--- NOTE | 2022-12-05 13:57 | ED General ---
General Stated Complaint: HALLUCINATIONS Source of Information: Patient Exam Limitations: No Limitations History of Present Illness Date Seen by Provider: Dec 05, 2022 Time Seen by Provider: 13:51 Initial Comments Patient is a 72-year-old male with a history of coronary artery disease, CHF, diabetes who presents ED with hallucinations. Patient had outpatient cholecystectomy performed by Dr. Maharaj on December 03. Patient states he felt fine after the surgery. Yesterday's according to patient started having hallucinations. Patient was seeing people and talking to people around him. He told his people were trying to take his "stuff". Patient has become more agitated over the past few days. Patient is currently taking hydrocodone for pain which he has been taking every 4 hours. Last dose 2 hours ago. According to they have noticed increased weight loss over the past 3 months. They were concerned that this was secondary to his gallbladder. Patient reporting he has more energy today than he did yesterday. He reports some mild abdominal discomfort secondary to surgery but that is improving. Healing surgical incisions noted to the abdomen. Decreased urine output and decreased oral intake. Concerning for dehydration. Denies of any pain with urination frequent urination, fever, chest pain, cough or shortness of breath, nausea, vomiting,. Denies of any unilateral weakness. Patient is alert and orient x3 Allergies and Home Medications Allergies Coded Allergies: No Known Drug Allergies (Unverified , 11/25/22) Patient Home Medication List Home Medication List Reviewed: Yes Acetaminophen (Tylenol Extra Strength) 500 Mg Tablet, 1,000 MG PO Q8H PRN for PAIN-MILD (1-4), (Reported) Entered as Reported by: MARIA DE JESUS PIEDRA on 07/21/22 1115 Allopurinol (Allopurinol) 100 Mg Tablet, 100 MG PO BID, (Reported) Entered as Reported by: MARIA DE JESUS PIEDRA on 12/06/20 0857 Bethanechol Chloride (Bethanechol Chloride) 50 Mg Tablet, 50 MG PO HS, (Reported) Entered as Reported by: MARIA DE JESUS PIEDRA on 12/06/20 0857 Clopidogrel Bisulfate (Clopidogrel) 75 Mg Tablet, 75 MG PO DAILY, (Reported) Entered as Reported by: MARIA DE JESUS PIEDRA on 12/06/20 0857 Dapagliflozin Propanediol (Farxiga) 10 Mg Tablet, 10 MG PO HS, (Reported) Entered as Reported by: GABRIEL MEDINA on 07/20/221814 Ferrous Sulfate (Feosol) 325 Mg (65 Mg Iron) Tablet, 325 MG PO HS, (Reported) Entered as Reported by: GABRIEL MEDINA on 07/20/22 182 Furosemide (Furosemide) 40 Mg Tablet, 40 MG PO Q48H, (Reported) Entered as Reported by: MARIA DE JESUS PIEDRA on 12/06/20 0901 Hydrocodone/Acetaminophen (Hydrocodone-Acetamin 7.5-325) 7.5 Mg-325 Mg Tablet, 1 EACH PO Q4H PRN for PAIN-BREAKTHROUGH Prescribed by: BIRGIT ANDRES on 12/03/22 1322 Metoprolol Succinate (Metoprolol Succinate) 50 Mg Tab.er.24h, 50 MG PO HS, (Reported) Entered as Reported by: GABRIEL MEDINA on 07/20/221809 Oxycodone HCl/Acetaminophen (Oxycodone-Acetaminophen 5-325) 5 Mg-325 Mg Tablet, 1 EA PO TID PRN for PAIN-MODERATE (5-7) Prescribed by: NICHOLAS GLOVER on 07/29/22 0535 Oxycodone HCl/Acetaminophen (Percocet 10-325 mg Tablet) 1 Each Tablet, 1 TAB PO Q4H PRN for PAIN-MODERATE Prescribed by: MARYLU MAHARAJ on 11/26/22 1312 Pantoprazole Sodium (Pantoprazole Sodium) 40 Mg Tablet.dr, 40 MG PO DAILY, (Reported) Entered as Reported by: MARIA DE JESUS PIEDRA on 07/21/22 111 Sacubitril/Valsartan (Entresto 49 mg-51 mg Tablet) 49 Mg-51 Mg Tablet, 1 EA PO BID, (Reported) Entered as Reported by: MARIA DE JESUS PIEDRA on 07/21/22 111 Spironolactone (Spironolactone) 25 Mg Tablet, 25 MG PO DAILY, (Reported) Entered as Reported by: GABRIEL MEDINA on 07/20/221809 Tamsulosin HCl (Flomax) 0.4 Mg Cap, 0.4 MG PO HS, (Reported) Entered as Reported by: MARIA DE JESUS PIEDRA on 12/06/20 0857 Zolpidem Tartrate (Ambien) 10 Mg Tablet, 10 MG PO HS, (Reported) Entered as Reported by: MARIA DE JESUS PIEDRA on 12/06/20 0857 Review of Systems Review of Systems Constitutional: No chills, No diaphoresis, No fever, No malaise, No weakness EENTM: No ear pain, No blurred vision, No double vision, No dental problems, No mouth pain, No mouth swelling, No throat pain, No throat swelling Respiratory: No cough, No dyspnea on exertion, No short of breath Cardiovascular: No chest pain Gastrointestinal: abdominal pain; No diarrhea, No nausea, No vomiting Genitourinary: No decreased output, No discharge Musculoskeletal: No back pain, No joint pain Skin: No change in color, No change in hair/nails All Other Systems Reviewed Negative Unless Noted: Yes Past Bprbuta-Kvmjdb-Vizdik Hx Immunizations Up To Date Tetanus Booster (TDap): Unknown PED Vaccines UTD: No First/Initial COVID19 Vaccinat: 2020 Second COVID19 Vaccination Gino: 2020 Third COVID19 Vaccination Date: 2020 Seasonal Allergies Seasonal Allergies: No Past Medical History Surgery/Hospitalization HX: CAD, CHF, CKD, DM, PERIPHERAL NEUROPATHY, GOUT, HTN, HIGH CHOLESTEROL, COPD, CHRONIC JOINT PAIN, RENAL ARTERY STENOSIS, PNEUMONIA, HEART SURGERY- "MITRAL CLIP 2", TICK BITE, GI BLEED, RIGHT 3RD TOE AMPUTATION. Surgeries: Yes (Mass removed from neck 2009; EGD; Colonoscopy) Amputation, Cardiac, Coronary Stent Respiratory: Yes COPD Currently Using CPAP: No Currently Using BIPAP: No Cardiac: Yes (CARDIAC CATH WITH STENTS; "MITRAL CLIP") Cardiomyopathy, Coronary Artery Disease, High Cholesterol, Hypertension, Valvular Heart Disease Neurological: Yes Neuropathy Genitourinary: Yes (Retention) Benign Prostatic Hyperpl, Renal Failure Gastrointestinal: Yes (HERNIA) Gastroesophageal Reflux, Gall Bladder Disease Musculoskeletal: Yes (R 3RD TOE AMPUTATION) Arthritis, Chronic Back Pain, Gout Endocrine: Yes Diabetes, Non-Insulin dep HEENT: Yes Cataract Loss of Vision: Denies Hearing Impairment: Denies Cancer: No Psychosocial: Yes Anxiety, Depression Integumentary: Yes (FOOT CELLULITIS; SEPSIS) Blood Disorders: No Family Medical History No Pertinent Family Hx Physical Exam Vital Signs Vital Signs - First Documented 12/05/22 13:34 Temp 35.1 Pulse 81 Resp 14 B/P (MAP) 103/67 (79) Pulse Ox 97 O2 Delivery Room Air Capillary Refill : Height, Weight, BMI Height: 5'11.00" Weight: 195lbs. 11.2oz. 88.446288bo; 18.78 BMI Method:Stated General Appearance: No Apparent Distress, WD/WN Eyes: Bilateral Eye Normal Inspection, Bilateral Eye PERRL, Bilateral Eye EOMI HEENT: PERRL/EOMI, TMs Normal, Normal ENT Inspection, Pharynx Normal Neck: Full Range of Motion, Normal Inspection, Non Tender Respiratory: Chest Non Tender, Lungs Clear, Normal Breath Sounds Cardiovascular: Regular Rate, Rhythm, No Edema, No Gallop, No JVD Gastrointestinal: Normal Bowel Sounds, No Organomegaly, No Pulsatile Mass Back: Normal Inspection, No CVA Tenderness, No Vertebral Tenderness Extremity: Normal Capillary Refill, Normal Inspection, Normal Range of Motion, Non Tender Neurologic/Psychiatric: Alert, Oriented x3, No Motor/Sensory Deficits, Normal Mood/Affect, metal finisher II-XII Norm as Tested; No Motor Weakness Skin: Other (3 healing surgical wounds noted to the abdomen) Progress/Results/Core Measures Suspected Sepsis SIRS Temperature: Pulse: Respiratory Rate: Laboratory Tests 12/05/22 13:53: White Blood Count 13.4H Blood Pressure / Mean: Laboratory Tests 12/05/22 13:53: Creatinine 1.98H, Platelet Count 202, Total Bilirubin 0.9 Results/Orders Lab Results Laboratory Tests Test 12/05/22 13:53 Range/Units White Blood Count 13.4 H 4.3-11.0 10^3/uL Red Blood Count 4.71 4.30-5.52 10^6/uL Hemoglobin 13.4 13.3-17.7 g/dL Hematocrit 42 40-54 % Mean Corpuscular Volume 89 80-99 fL Mean Corpuscular Hemoglobin 29 25-34 pg Mean Corpuscular Hemoglobin Concent 32 32-36 g/dL Red Cell Distribution Width 16.5 H 10.0-14.5 % Platelet Count 202 130-400 10^3/uL Mean Platelet Volume 11.6 9.0-12.2 fL Immature Granulocyte % (Auto) 0 % Neutrophils (%) (Auto) 85 H 42-75 % Lymphocytes (%) (Auto) 7 L 12-44 % Monocytes (%) (Auto) 7 0-12 % Eosinophils (%) (Auto) 0 0-10 % Basophils (%) (Auto) 1 0-10 % Neutrophils # (Auto) 11.4 H 1.8-7.8 10^3/uL Lymphocytes # (Auto) 0.9 L 1.0-4.0 10^3/uL Monocytes # (Auto) 1.0 0.0-1.0 10^3/uL Eosinophils # (Auto) 0.0 0.0-0.3 10^3/uL Basophils # (Auto) 0.1 0.0-0.1 10^3/uL Immature Granulocyte # (Auto) 0.1 0.0-0.1 10^3/uL Neutrophils % (Manual) 84 % Lymphocytes % (Manual) 8 % Monocytes % (Manual) 5 % Eosinophils % (Manual) 0 % Basophils % (Manual) 0 % Band Neutrophils 3 % Anisocytosis SLIGHT Sodium Level 143 135-145 MMOL/L Potassium Level 4.0 3.6-5.0 MMOL/L Chloride Level 107 98-107 MMOL/L Carbon Dioxide Level 23 21-32 MMOL/L Anion Gap 13 5-14 MMOL/L Blood Urea Nitrogen 25 H 7-18 MG/DL Creatinine 1.98 H 0.60-1.30 MG/DL Estimat Glomerular Filtration Rate 35 BUN/Creatinine Ratio 13 Glucose Level 114 H 70-105 MG/DL Calcium Level 9.4 8.5-10.1 MG/DL Corrected Calcium 9.6 8.5-10.1 MG/DL Total Bilirubin 0.9 0.1-1.0 MG/DL Aspartate Amino Transf (AST/SGOT) 38 H 5-34 U/L Alanine Aminotransferase (ALT/SGPT) 17 0-55 U/L Alkaline Phosphatase 149 H 40-136 U/L C-Reactive Protein High Sensitivity 13.76 H 0.00-0.50 MG/DL Total Protein 6.7 6.4-8.2 GM/DL Albumin 3.8 3.2-4.5 GM/DL Lipase 12 8-78 U/L Salicylates Level < 5.0 L 5.0-20.0 MG/DL Acetaminophen Level < 10 L 10-30 UG/ML Serum Alcohol < 10 <10 MG/DL My Orders Orders - ROSSY BARTON Cbc With Automated Diff (12/05/22 13:49) Comprehensive Metabolic Panel (12/05/22 13:49) Alcohol (12/05/22 13:49) Acetaminophen (12/05/22 13:49) Salicylate (12/05/22 13:49) Ekg Tracing (12/05/22 13:49) Ed Iv/Invasive Line Start (12/05/22 13:49) Monitor-Rhythm Ecg Trace Only (12/05/22 13:49) Ed Iv/Invasive Line Start (12/05/22 13:49) Ns Iv 1000 Ml (Sodium Chloride 0.9%) (12/05/22 14:00) Hs C Reactive Protein (12/05/22 13:49) Lipase (12/05/22 13:49) Manual Differential (12/05/22 13:53) Vital Signs/I&O 12/05/22 12/05/22 13:34 15:36 Temp 35.1 Pulse 81 75 Resp 14 16 B/P (MAP) 103/67 (79) 112/78 Pulse Ox 97 97 O2 Delivery Room Air Room Air Capillary Refill : ECG Comment Sinus atrial rhythm, prolonged OH interval, rate 81 bpm, QRS duration 115 MS, QTc 480 MS Departure Communication (PCP) Reviewed previous ER visits, general surgery H&P and consults, lab test, imaging. Patient had a cholecystectomy this past by Dr. Maharaj and felt okay after the surgery. reports hallucinations yesterday. Patient denies this behavior. Patient supposedly was talking to people around him. Patient with a flat affect. Patient initially was refusing lab work. He states he does not want to be here. According to no history of similar symptoms. Due to his symptoms I talked to patient about doing general lab work which he eventually agreed. CBC, CMP, CRP, and urinalysis was ordered. He did have a healing surgical port sites to the abdomen from a laparoscopy cholecystectomy performed by Dr. Maharaj. No tenderness on palpation or evidence of erythema or swelling. Denies of any vomiting or diarrhea. According to decreased urine output decreased oral intake. Patient has not been wanting to eat for several months. Patient states he feels better today than he did yesterday. CBC 13.4, creatinine 1.98 with a GFR 35, CRP of 13. Patient refused any further treatment. Patient would not provide urinalysis. Not able to rule out infectious cause in your. Elevated white blood count could be infectious related versus reactive postsurgery. Elevated white blood count from previous visits. Discussed my concern with regarding his change in behavior. Discussed with this could be mental health versus drug which she is currently on hydrocodone, depression, side effects of medication, weaning off of anesthesia, metabolic. Patient has no headaches or visual changes suggesting brain tumor. No known history of Alzheimer's disease. No history of seizures. Did discuss patient with Dr. Glover's primary care physician that patient is requesting to be discharged and does not want any further work-up. He states he is sick of coming to the hospital. He will follow-up outpatient. Return precautions were discussed with patient and such as fever, abdominal pain, continue hallucinations, not eating or drinking. Discussed weaning off the hydrocodone. Patient had no active hallucinations here in the ED. Patient was irritable. Impression Primary Impression: Generalized weakness Disposition: 01 HOME, SELF-CARE Condition: Stable Departure-Patient Inst. Decision time for Depature: 15:16 Referrals: NICHOLAS GLOVER DO (PCP/Family) Primary Care Physician Patient Instructions: Weakness ED Add. Discharge Instructions: Continue monitoring at home. Discussed increasing diet, intake. Avoid narcotic use. If worsening symptoms continue with hallucinations, fever, vomiting, to return back to ED. follow-up with your PCP in 2 to 3 days for reevaluation. ROSSY BARTON Dec 05, 2022 13:57
[2022-12-05 13:59] LABS: BASOPHILS # (AUTO) 0.1 10^3/uL (0.0-0.1); BASOPHILS % (AUTO) 1 % (0-10); EOSINOPHILS % (AUTO) 0 % (0-10); HEMATOCRIT 42 % (40-54); HEMOGLOBIN 13.4 g/dL (13.3-17.7); LYMPHOCYTES # (AUTO) 0.9 10^3/uL (1.0-4.0); LYMPHOCYTES % (AUTO) 7 % (12-44); MEAN CORPUSCULAR HEMOGLOBIN 29 pg (25-34); MEAN CORPUSCULAR HGB CONC 32 g/dL (32-36); MEAN CORPUSCULAR VOLUME 89 fL (80-99); MEAN PLATELET VOLUME 11.6 fL (9.0-12.2); MONOCYTES % (AUTO) 7 % (0-12); NEUTROPHILS # (AUTO) 11.4 10^3/uL (1.8-7.8); NEUTROPHILS % (AUTO) 85 % (42-75); PLATELET COUNT 202 10^3/uL (130-400); WHITE BLOOD COUNT 13.4 10^3/uL (4.3-11.0)
[2022-12-05] MEDS ORDERED: NS IV 1000 ML 1,000 ML IV SCH (14:00)
[2022-12-05 14:10] LABS: ALBUMIN 3.8 GM/DL (3.2-4.5); CHLORIDE 107 MMOL/L (98-107); SODIUM 143 MMOL/L (135-145)
[2022-12-05 14:12] LABS: CALCIUM 9.4 MG/DL (8.5-10.1)
[2022-12-05 14:13] LABS: GLUCOSE 114 MG/DL (70-105); TOTAL PROTEIN 6.7 GM/DL (6.4-8.2)
[2022-12-05 14:14] LABS: CARBON DIOXIDE 23 MMOL/L (21-32)
[2022-12-05 14:15] LABS: BILIRUBIN,TOTAL 0.9 MG/DL (0.1-1.0)
[2022-12-05 14:17] LABS: ALKALINE PHOSPHATASE 149 U/L (40-136); CREATININE SERUM 1.98 MG/DL (0.60-1.30); GFR ESTIMATED 35
[2022-12-05 14:18] LABS: ACETAMINOPHEN < 10 UG/ML (10-30); BUN/CREATININE RATIO 13
[2022-12-05 14:20] LABS: ALANINE AMINOTRANSFERASE 17 U/L (0-55); LIPASE 12 U/L (8-78); SALICYLATE < 5.0 MG/DL (5.0-20.0)
[2022-12-05 14:26] LABS: ANISOCYTOSIS SLIGHT; BAND NEUTROPHILS 3 %; BASOPHILS % (MANUAL) 0 %; EOSINOPHILS % (MANUAL) 0 %; LYMPHOCYTES % (MANUAL) 8 %; MONOCYTES % (MANUAL) 5 %; NEUTROPHILS % (MANUAL) 84 %
[2022-12-05 15:36] VITALS: BP 112/78
== END 2022-12-05 15:38 | disposition home or self-care (01) ==
LOC: EDUNIT# 13:19 → ER 13:20
DX: R53.1 Weakness (principal); T81.89XA Other complications of procedures, not elsewhere classified, initial encounter; R44.3 Hallucinations, unspecified; D72.829 Elevated white blood cell count, unspecified; Z79.1 Long term (current) use of non-steroidal anti-inflammatories (NSAID); Z90.49 Acquired absence of other specified parts of digestive tract
CPT/HCPCS: 80053; 83690; 85007; 85027; 86141; 99283; G0480 ×3; 36415; 80320; 80329; 93005

== ENCOUNTER → 2022-12-10 | Outpatient (CLI) | payer MEDICARE | LOC: WOUNDCARE 14:50 | PROVIDERS: ATTEND Family Medicine | DX: T87.89 Other complications of amputation stump (principal); T81.31XA Disruption of external operation (surgical) wound, not elsewhere classified, initial encounter; E11.621 Type 2 diabetes mellitus with foot ulcer; I70.235 Atherosclerosis of native arteries of right leg with ulceration of other part of foot; E44.0 Moderate protein-calorie malnutrition; E11.40 Type 2 diabetes mellitus with diabetic neuropathy, unspecified; N18.30 Chronic kidney disease, stage 3 unspecified; D63.1 Anemia in chronic kidney disease; E11.52 Type 2 diabetes mellitus with diabetic peripheral angiopathy with gangrene | CPT/HCPCS: 11042; G0463 ==

== ENCOUNTER → 2022-12-24 | Outpatient (CLI) | payer MEDICARE | LOC: WOUNDCARE 14:58 | PROVIDERS: ATTEND Family Medicine | DX: T87.89 Other complications of amputation stump (principal); T81.31XA Disruption of external operation (surgical) wound, not elsewhere classified, initial encounter; E11.621 Type 2 diabetes mellitus with foot ulcer; I70.235 Atherosclerosis of native arteries of right leg with ulceration of other part of foot; E44.0 Moderate protein-calorie malnutrition; E11.40 Type 2 diabetes mellitus with diabetic neuropathy, unspecified; E11.22 Type 2 diabetes mellitus with diabetic chronic kidney disease; N18.30 Chronic kidney disease, stage 3 unspecified; D63.1 Anemia in chronic kidney disease; R64 Cachexia; E11.52 Type 2 diabetes mellitus with diabetic peripheral angiopathy with gangrene | CPT/HCPCS: 11042; G0463 ==

== ENCOUNTER → 2022-12-31 | Outpatient (CLI) | payer MEDICARE | LOC: WOUNDCARE 14:40 | PROVIDERS: ATTEND Family Medicine | DX: T87.89 Other complications of amputation stump (principal); T81.31XA Disruption of external operation (surgical) wound, not elsewhere classified, initial encounter; E11.621 Type 2 diabetes mellitus with foot ulcer; I70.235 Atherosclerosis of native arteries of right leg with ulceration of other part of foot; E44.0 Moderate protein-calorie malnutrition; E11.40 Type 2 diabetes mellitus with diabetic neuropathy, unspecified; N18.30 Chronic kidney disease, stage 3 unspecified; D63.1 Anemia in chronic kidney disease; R64 Cachexia | CPT/HCPCS: 11042; G0463 ==

== ENCOUNTER → 2023-01-28 | Outpatient (CLI) | payer MEDICARE | LOC: WOUNDCARE 14:43 | PROVIDERS: ATTEND Family Medicine | DX: T87.89 Other complications of amputation stump (principal); T81.31XA Disruption of external operation (surgical) wound, not elsewhere classified, initial encounter; E11.621 Type 2 diabetes mellitus with foot ulcer; I70.235 Atherosclerosis of native arteries of right leg with ulceration of other part of foot; E44.0 Moderate protein-calorie malnutrition; E11.40 Type 2 diabetes mellitus with diabetic neuropathy, unspecified; E11.22 Type 2 diabetes mellitus with diabetic chronic kidney disease; N18.30 Chronic kidney disease, stage 3 unspecified; D63.1 Anemia in chronic kidney disease; R64 Cachexia; E11.52 Type 2 diabetes mellitus with diabetic peripheral angiopathy with gangrene; I96 Gangrene, not elsewhere classified | CPT/HCPCS: 11042; G0463 ==

== ENCOUNTER → 2023-03-11 | Outpatient (CLI) | payer MEDICARE ==
[~2023-03-11] MED LIST changes: +POTA-330 PO; -POTA-51 PO
== END ==
LOC: WOUNDCARE 14:59
PROVIDERS: ATTEND Family Medicine
DX: T87.89 Other complications of amputation stump (principal); T81.31XA Disruption of external operation (surgical) wound, not elsewhere classified, initial encounter; E11.621 Type 2 diabetes mellitus with foot ulcer; I70.235 Atherosclerosis of native arteries of right leg with ulceration of other part of foot; E44.0 Moderate protein-calorie malnutrition; E11.40 Type 2 diabetes mellitus with diabetic neuropathy, unspecified; E11.22 Type 2 diabetes mellitus with diabetic chronic kidney disease; N18.30 Chronic kidney disease, stage 3 unspecified; D63.1 Anemia in chronic kidney disease; L89.153 Pressure ulcer of sacral region, stage 3; R64 Cachexia
CPT/HCPCS: 97602; G0463

== ENCOUNTER → 2023-04-01 | Outpatient (CLI) | payer MEDICARE | LOC: WOUNDCARE 14:56 | PROVIDERS: ATTEND Family Medicine | DX: T81.31XA Disruption of external operation (surgical) wound, not elsewhere classified, initial encounter (principal); T87.89 Other complications of amputation stump; E11.621 Type 2 diabetes mellitus with foot ulcer; I70.235 Atherosclerosis of native arteries of right leg with ulceration of other part of foot; E44.0 Moderate protein-calorie malnutrition; E11.40 Type 2 diabetes mellitus with diabetic neuropathy, unspecified; E11.22 Type 2 diabetes mellitus with diabetic chronic kidney disease; N18.30 Chronic kidney disease, stage 3 unspecified; D63.1 Anemia in chronic kidney disease; L89.153 Pressure ulcer of sacral region, stage 3; R64 Cachexia | CPT/HCPCS: 99212 ==

== ENCOUNTER 2023-05-07 09:27 | Emergency (ER) | payer MEDICARE ==
[~2023-05-07] VITALS: Ht 177.8 cm; Wt 80.7 kg
[~2023-05-07 09:27] MED LIST changes: +POTA-185 PO; -POTA10TA PO
[2023-05-07 09:45] LABS: BASOPHILS # (AUTO) 0.1 10^3/uL (0.0-0.1); BASOPHILS % (AUTO) 1 % (0-10); EOSINOPHILS # (AUTO) 0.4 10^3/uL (0.0-0.3); EOSINOPHILS % (AUTO) 6 % (0-10); HEMATOCRIT 26 % (40-54); HEMOGLOBIN 8.2 g/dL (13.3-17.7); LYMPHOCYTES % (AUTO) 16 % (12-44); MEAN CORPUSCULAR HEMOGLOBIN 30 pg (25-34); MEAN CORPUSCULAR HGB CONC 31 g/dL (32-36); MEAN CORPUSCULAR VOLUME 95 fL (80-99); MEAN PLATELET VOLUME 9.8 fL (9.0-12.2); MONOCYTES # (AUTO) 0.6 10^3/uL (0.0-1.0); MONOCYTES % (AUTO) 10 % (0-12); NEUTROPHILS # (AUTO) 4.2 10^3/uL (1.8-7.8); NEUTROPHILS % (AUTO) 67 % (42-75); PLATELET COUNT 287 10^3/uL (130-400); WHITE BLOOD COUNT 6.3 10^3/uL (4.3-11.0)
--- NOTE | 2023-05-07 09:52 | ED Neurological Problem ---
General Chief Complaint: Neurological Problems Stated Complaint: STROKE-LIKE SYMPTOMS Nursing Triage Note: PT STATES HE WOKE UP WITH RIGHT HAND WEAKNESS THIS AM AROUND 5 AM. DENIES ANY OTHER SYMPTOMS. STATES HE JUST HAD STENTS PLACED IN HIS HEART RECENTLY. Source: patient Exam Limitations: no limitations History of Present Illness Date Seen by Provider: May 07, 2023 Time Seen by Provider: 09:34 Initial Comments 72-year-old male presents to the emergency department via private vehicle for right hand weakness. He noticed symptoms around 530 this morning when he woke up. He went to bed about 830 last night normal. He does tell me that he has some left leg weakness that started about a week ago. He denies any changes in vision, dysarthria, facial droop, left arm or right leg weakness numbness or tingling. He has never had similar symptoms in the past. He has had 5 cardiac stents, has high blood pressure high cholesterol and diabetes. He has been otherwise well recently. He tells me he is on a blood thinning medication. Record review shows he is on Plavix All other systems reviewed and negative except documented per HPI. Voice recognition software was used to help create this chart Allergies and Home Medications Allergies Coded Allergies: No Known Drug Allergies (Unverified , 11/25/22) Patient Home Medication List Home Medication List Reviewed: Yes Acetaminophen (Tylenol Extra Strength) 500 Mg Tablet, 1,000 MG PO Q8H PRN for PAIN-MILD (1-4), (Reported) Entered as Reported by: MARIA DE JESUS PIEDRA on 07/21/22 1115 Allopurinol (Allopurinol) 100 Mg Tablet, 100 MG PO BID, (Reported) Entered as Reported by: MARIA DE JESUS PIEDRA on 12/06/20 0857 Bethanechol Chloride (Bethanechol Chloride) 50 Mg Tablet, 50 MG PO HS, (Reported) Entered as Reported by: MARIA DE JESUS PIEDRA on 12/06/20 0857 Clopidogrel Bisulfate (Clopidogrel) 75 Mg Tablet, 75 MG PO DAILY, (Reported) Entered as Reported by: MARIA DE JESUS PIEDRA on 12/06/20 0857 Dapagliflozin Propanediol (Farxiga) 10 Mg Tablet, 10 MG PO HS, (Reported) Entered as Reported by: GABRIEL MEDINA on 07/20/22 1815 Ferrous Sulfate (Feosol) 325 Mg (65 Mg Iron) Tablet, 325 MG PO HS, (Reported) Entered as Reported by: GABRIEL MEDINA on 07/20/22 1824 Furosemide (Furosemide) 40 Mg Tablet, 40 MG PO Q48H, (Reported) Entered as Reported by: MARIA DE JESUS PIEDRA on 12/06/20 0901 Hydrocodone/Acetaminophen (Hydrocodone-Acetamin 7.5-325) 7.5 Mg-325 Mg Tablet, 1 EACH PO Q4H PRN for PAIN-BREAKTHROUGH Prescribed by: BIRGIT ANDRES on 12/03/22 1322 Metoprolol Succinate (Metoprolol Succinate) 50 Mg Tab.er.24h, 50 MG PO HS, (Reported) Entered as Reported by: GABRIEL MEDINA on 07/20/22 1810 Oxycodone HCl/Acetaminophen (Oxycodone-Acetaminophen 5-325) 5 Mg-325 Mg Tablet, 1 EA PO TID PRN for PAIN-MODERATE (5-7) Prescribed by: NICHOLAS GLOVER on 07/29/22 0535 Oxycodone HCl/Acetaminophen (Percocet 10-325 mg Tablet) 1 Each Tablet, 1 TAB PO Q4H PRN for PAIN-MODERATE Prescribed by: MARYLU DELGADO on 11/26/22 1312 Pantoprazole Sodium (Pantoprazole Sodium) 40 Mg Tablet.dr, 40 MG PO DAILY, (Reported) Entered as Reported by: MARIA DE JESUS PIEDRA on 07/21/22 1115 Sacubitril/Valsartan (Entresto 49 mg-51 mg Tablet) 49 Mg-51 Mg Tablet, 1 EA PO BID, (Reported) Entered as Reported by: MARIA DE JESUS PIEDRA on 07/21/22 1115 Spironolactone (Spironolactone) 25 Mg Tablet, 25 MG PO DAILY, (Reported) Entered as Reported by: GABRIEL MEDINA on 07/20/22 181 Tamsulosin HCl (Flomax) 0.4 Mg Cap, 0.4 MG PO HS, (Reported) Entered as Reported by: MARIA DE JESUS PIEDRA on 12/06/20 0857 Zolpidem Tartrate (Ambien) 10 Mg Tablet, 10 MG PO HS, (Reported) Entered as Reported by: MARIA DE JESUS PIEDRA on 12/06/20 0857 Review of Systems Review of Systems Constitutional: see HPI Past Nevjkaf-Nyhuof-Sysoul Hx Patient Social History Tobacco Use?: No Substance use?: No Alcohol Use?: No Pt feels they are or have been: No Immunizations Up To Date Tetanus Booster (TDap): Unknown PED Vaccines UTD: No First/Initial COVID19 Vaccinat: 2020 Second COVID19 Vaccination Gino: 2020 Third COVID19 Vaccination Date: 2020 Seasonal Allergies Seasonal Allergies: No Past Medical History Surgery/Hospitalization HX: CAD, CHF, CKD, DM, PERIPHERAL NEUROPATHY, GOUT, HTN, HIGH CHOLESTEROL, COPD, CHRONIC JOINT PAIN, RENAL ARTERY STENOSIS, PNEUMONIA, HEART SURGERY- "MITRAL CLIP 2", TICK BITE, GI BLEED, RIGHT 3RD TOE AMPUTATION, BING Surgeries: Yes (Mass removed from neck 2009; EGD; Colonoscopy) Amputation, Cardiac, Coronary Stent Respiratory: Yes COPD Currently Using CPAP: No Currently Using BIPAP: No Cardiac: Yes (CARDIAC CATH WITH STENTS; "MITRAL CLIP") Cardiomyopathy, Coronary Artery Disease, High Cholesterol, Hypertension, Valvular Heart Disease Neurological: Yes Neuropathy Genitourinary: Yes (Retention) Benign Prostatic Hyperpl, Renal Failure Gastrointestinal: Yes (HERNIA) Gastroesophageal Reflux, Gall Bladder Disease Musculoskeletal: Yes (R 3RD TOE AMPUTATION) Arthritis, Chronic Back Pain, Gout Endocrine: Yes Diabetes, Non-Insulin dep HEENT: Yes Cataract Loss of Vision: Denies Hearing Impairment: Denies Cancer: No Psychosocial: Yes Anxiety, Depression Integumentary: Yes (FOOT CELLULITIS; SEPSIS) Blood Disorders: No Family Medical History No Pertinent Family Hx Physical Exam Vital Signs Vital Signs - First Documented 05/07/23 09:30 Temp 35.5 Pulse 50 Resp 16 B/P (MAP) 140/64 (89) Pulse Ox 97 Capillary Refill : Height, Weight, BMI Height: 5'11.00" Weight: 195lbs. 11.2oz. [id number]; 56.00 BMI Method:Stated General Appearance: WD/WN, no apparent distress HEENT: PERRL/EOMI, normal ENT inspection, TMs normal, pharynx normal Neck: non-tender, full range of motion, supple, normal inspection Respiratory: chest non-tender, lungs clear, normal breath sounds, no res piratory distress, no accessory muscle use Cardiovascular: regular rate, rhythm, no edema, no murmur Gastrointestinal: normal bowel sounds, non tender, soft, no organomegaly Back: normal inspection, no vertebral tenderness Extremities: normal range of motion, non-tender, normal inspection, normal capillary refill Neurologic/Psychiatric: a class lineman II-XII nml as tested, alert, normal mood/affect, oriented x 3, other (Focal weakness in the right hand and wrist, left leg. Vascular and sensory intact. Leg shows some effort against gravity but drifts to the bed after about 2 seconds. Right hand with 4/5 strength) Progress/Results/Core Measures Results/Orders Lab Results Laboratory Tests Test 05/07/23 09:35 Range/Units White Blood Count 6.3 4.3-11.0 10^3/uL Red Blood Count 2.77 L 4.30-5.52 10^6/uL Hemoglobin 8.2 L 13.3-17.7 g/dL Hematocrit 26 L 40-54 % Mean Corpuscular Volume 95 80-99 fL Mean Corpuscular Hemoglobin 30 25-34 pg Mean Corpuscular Hemoglobin Concent 31 L 32-36 g/dL Red Cell Distribution Width 14.3 10.0-14.5 % Platelet Count 287 130-400 10^3/uL Mean Platelet Volume 9.8 9.0-12.2 fL Immature Granulocyte % (Auto) 0 % Neutrophils (%) (Auto) 67 42-75 % Lymphocytes (%) (Auto) 16 12-44 % Monocytes (%) (Auto) 10 0-12 % Eosinophils (%) (Auto) 6 0-10 % Basophils (%) (Auto) 1 0-10 % Neutrophils # (Auto) 4.2 1.8-7.8 10^3/uL Lymphocytes # (Auto) 1.0 1.0-4.0 10^3/uL Monocytes # (Auto) 0.6 0.0-1.0 10^3/uL Eosinophils # (Auto) 0.4 H 0.0-0.3 10^3/uL Basophils # (Auto) 0.1 0.0-0.1 10^3/uL Immature Granulocyte # (Auto) 0.0 0.0-0.1 10^3/uL Prothrombin Time 14.9 H 12.2-14.7 SEC INR Comment 1.2 0.8-1.4 Activated Partial Thromboplast Time 44 H 24-35 SEC Sodium Level 140 135-145 MMOL/L Potassium Level 4.7 3.6-5.0 MMOL/L Chloride Level 107 98-107 MMOL/L Carbon Dioxide Level 24 21-32 MMOL/L Anion Gap 9 5-14 MMOL/L Blood Urea Nitrogen 23 H 7-18 MG/DL Creatinine 1.48 H 0.60-1.30 MG/DL Estimat Glomerular Filtration Rate 50 BUN/Creatinine Ratio 16 Glucose Level 169 H 70-105 MG/DL Calcium Level 8.7 8.5-10.1 MG/DL Corrected Calcium 9.4 8.5-10.1 MG/DL Total Bilirubin 0.4 0.1-1.0 MG/DL Aspartate Amino Transf (AST/SGOT) 12 5-34 U/L Alanine Aminotransferase (ALT/SGPT) 9 0-55 U/L Alkaline Phosphatase 123 40-136 U/L Troponin I 0.028 <0.028 NG/ML Total Protein 6.2 L 6.4-8.2 GM/DL Albumin 3.1 L 3.2-4.5 GM/DL My Orders Orders - KAUSHALNIMISHA DO Cbc With Automated Diff (05/07/23 09:37) Protime With Inr (05/07/23 09:37) Partial Thromboplastin Time (05/07/23 09:37) Comprehensive Metabolic Panel (05/07/23 09:37) Troponin I [place] (05/07/23 09:37) Chest 1 View, Ap/Pa Only (05/07/23 09:37) Ekg Tracing (05/07/23 09:37) Accucheck Stat ONCE (05/07/23 09:37) Ed Iv/Invasive Line Start (05/07/23 09:37) Vital Signs Stroke Patient Q15M (05/07/23 09:37) Ct Head Wo-R/O Stroke (05/07/23 09:37) Monitor-Rhythm Ecg Trace Only (05/07/23 09:37) Dysphagia Screening Tool [id number] (05/07/23 09:37) Mri Brain W/O Contrast (05/07/23 10:20) Vital Signs/I&O 05/07/23 05/07/23 09:30 13:38 Temp 35.5 35.5 Pulse 50 50 Resp 16 16 B/P (MAP) 140/64 (89) 133/67 Pulse Ox 97 97 Blood Pressure Mean: 89 FSBG Bedside Testing Finger Stick Blood Glucose: 160 Comment Sinus bradycardia with a rate of 49 bpm. First-degree AV block with a IA of 217. QRS is 109 ms. Normal axis. Poor R wave progression in the precordial leads. ST depression with biphasic type T wave in V5 and V6. STEMI. Diagnostic Imaging Comments MRI Brain without IMPRESSION: 1. Punctate focus of acute/subacute ischemia within the anterior left frontal lobe. No associated hemorrhage or mass effect. 2. Confluent chronic microvascular disease with generalized parenchymal volume loss. 3. Punctate focus of susceptibility artifact in the left cerebellum, which may represent microhemorrhage related to vasculopathy of hypertension. 4. Mucus retention cysts in the fossa of Rosenmuller bilaterally. No mastoid effusions are seen. Dictated by: Dictated on workstation # [id number] Dict: 05/07/23 1147 Trans: 05/07/23 1200 CVB [id number] Interpreted by: MANJIT CHAUDHARI DO Electronically signed by: MANJIT CHAUDHARI DO 05/07/23 1200 Critical Care Note Critical Care Total Time (minutes) 60 Departure Communication (Admissions) Patient is hemodynamically stable. He does have right hand and wrist weakness as well as left leg weakness. Initial CT scan is negative. He is out of window for tPA as he was a wake-up stroke with last known well at 830 last night. His labs are reassuring and creatinine is actually better than it has been in some time. Remainder of his labs are unremarkable including the rest of his chemistry and CBC. I independently reviewed his chest x-ray which is negative for any acute cardiopulmonary abnormalities. Independently reviewed the CT head imaging which is negative. I spoke with his primary doctor, Dr. Glover. She request an MRI to rule out embolic type stroke. MRI shows a punctate left frontal stroke which could be responsible for his right hand weakness. There is no obvious source for his left leg weakness at this time. I spoke with his daughter at bedside he was recently started on Eliquis. He is also on Plavix and is on a statin already. Dr. Glover, his primary care doctor came down to speak with him about admission versus rehab admission. She and I had a long discussion with him at bedside and ultimately he request discharge to home. He is likely stable to be discharged home as he is ambulatory and only has some mild right hand weakness. His daughter is at bedside and she is in agreement with this plan of care. He is adamantly against admission to the hospital, was only briefly considering a stay in inpatient rehab but thinks that he be better served at home at this point. He is alert, oriented and has capacity make his own medical decisions. He will be discharged in stable condition with close follow-up. I did independently review the MRI imaging Impression Primary Impression: CVA (cerebral vascular accident) Qualified Codes: I63.20 - Cerebral infarction due to unspecified occlusion or stenosis of unspecified precerebral arteries Disposition: HOME, SELF-CARE Condition: Stable Departure-Patient Inst. Referrals: NICHOLAS GLOVER DO (PCP/Family) Primary Care Physician Patient Instructions: Stroke Rehab Exercises Add. Discharge Instructions: As discussed you have had a stroke. This is likely causing the weakness in your right hand. There is no obvious cause of the weakness in her left leg at this time. It is unclear if these things will get better on their own or if this will be a new \\normal for you. I encourage aggressive physical and occupational therapy as discussed with Dr. Glover myself. Follow-up as scheduled. Return to the emergency department for any new symptoms, or if your symptoms change in any way concerning to you. All discharge instructions reviewed with patient and/or family. Voiced understanding. NIMISHA EASLEY DO May 07, 2023 09:52
[2023-05-07 09:56] LABS: ALBUMIN 3.1 GM/DL (3.2-4.5); POTASSIUM 4.7 MMOL/L (3.6-5.0)
[2023-05-07 09:57] LABS: CALCIUM 8.7 MG/DL (8.5-10.1)
[2023-05-07 09:58] LABS: INR 1.2 (0.8-1.4); PROTHROMBIN TIME PATIENT 14.9 SEC (12.2-14.7); TOTAL PROTEIN 6.2 GM/DL (6.4-8.2)
[2023-05-07 10:00] LABS: BILIRUBIN,TOTAL 0.4 MG/DL (0.1-1.0)
[2023-05-07 10:02] LABS: CREATININE SERUM 1.48 MG/DL (0.60-1.30)
--- NOTE | 2023-05-07 10:20 | Diagnostic Imaging Report ---
CLINICAL INDICATION: Patient woke up with right hand weaknesses morning around 5:00 AM. EXAM: Portable chest x-ray upright view. COMPARISON: Chest x-ray dated 10/13/2022. FINDINGS: Lungs/pleura: There is stable medial right lung base infiltrates. Remainder of the lungs are clear. There is no pneumothorax. There is no pleural effusion. Mediastinum: Unremarkable. Pulmonary vasculature: Stable prominent pulmonary vascular congestion. Heart: Stable cardiomegaly. Bones/extrathoracic soft tissue: Unremarkable. IMPRESSION: 1: Stable cardiomegaly and mild pulmonary vascular congestion. 2: Stable medial right lung base infiltrates. Dictated by: Dictated on workstation # [id number]
--- NOTE | 2023-05-07 10:20 | Diagnostic Imaging Report ---
CLINICAL INDICATIONS: Patient with right hand weakness this morning. EXAM: Axial CT scan of the brain performed without IV contrast. High-resolution axial CT brain images with sagittal and coronal reformations were also created. Auto Exposure Controls were utilized during the CT exam to meet ALARA standards for radiation dose reduction. COMPARISON: Head CT without contrast dated 10/13/2022. FINDINGS: There is no evidence of acute cerebral infarct, intracranial hemorrhage, or gross mass effect. There is no dense vessel sign seen. There is diffuse brain parenchymal volume loss. Stable patchy and confluent areas of low-attenuation white matter changes involving both cerebral hemispheres and periventricular regions, likely representing chronic small vessel ischemic disease. There is normal daniels-white matter distinction. There is no significant midline shift or herniation. There is no evidence of hydrocephalus. The basal cisterns are unremarkable. The skull, extracranial soft tissue, and orbits are unremarkable. There is mild mucosal thickening involving both maxillary sinuses. Temporal bones show no significant abnormality. IMPRESSION: 1: Stable CT scan of the brain with no interval evidence of acute intracranial process. There is no dense vessel sign. Results of this report discussed with Dr. Savage Davidson via the telephone on 05/07/2023 at 1010 hours. Dictated by: Dictated on workstation # [id number]
--- NOTE | 2023-05-07 11:59 | Diagnostic Imaging Report ---
PROCEDURE: MR imaging of the brain without contrast. TECHNIQUE: Multiplanar, multisequence MR imaging of the brain was performed without contrast. INDICATION: Right hand weakness. Left leg weakness. Concern for acute ischemia. COMPARISON: 10/14/2020. CT head on 05/07/2023. FINDINGS: Small focus of acute/subacute ischemia is visualized in the left frontal lobe anteriorly. No associated hemorrhage or mass effect. Confluent T2 hyperintense signal seen throughout the periventricular and subcortical white matter. The ventricles and cortical sulci are prominent. The basilar cisterns are clear. Punctate focus of susceptibility artifact is seen in the left cerebellum. There is flattening of the pituitary. The major intracranial flow voids are intact. The paranasal sinuses and mastoid air cells demonstrate normal signal characteristics. Mucus retention cysts are seen in the fossa of Rosenmuller bilaterally, right greater than left. Right-sided lens implant is seen. The scalp and calvarium have a normal appearance. IMPRESSION: 1. Punctate focus of acute/subacute ischemia within the anterior left frontal lobe. No associated hemorrhage or mass effect. 2. Confluent chronic microvascular disease with generalized parenchymal volume loss. 3. Punctate focus of susceptibility artifact in the left cerebellum, which may represent microhemorrhage related to vasculopathy of hypertension. 4. Mucus retention cysts in the fossa of Rosenmuller bilaterally. No mastoid effusions are seen. Dictated by: Dictated on workstation # [id number]
[2023-05-07 13:38] VITALS: BP 133/67
== END 2023-05-07 13:39 | disposition home or self-care (01) ==
LOC: EDUNIT# 09:27 → ER 09:28
DX: I63.9 Cerebral infarction, unspecified (principal); I10 Essential (primary) hypertension; I25.10 Atherosclerotic heart disease of native coronary artery without angina pectoris; Z79.01 Long term (current) use of anticoagulants
CPT/HCPCS: 36415; 70450; 70551; 71045; 80053; 84484; 85025; 85610; 85730; 93005

== ENCOUNTER 2023-08-30 13:24 | Outpatient (RCR) | payer MEDICARE | END 2023-09-02 | disposition home or self-care (01) | LOC: CR 13:24 | PROVIDERS: ATTEND Internal Medicine Interventional Cardiology | DX: Z29.89 Encounter for other specified prophylactic measures (principal); Z95.818 Presence of other cardiac implants and grafts; Z98.890 Other specified postprocedural states | CPT/HCPCS: 93798 ==